=== PATIENT | male | born 1950 | race Caucasian/White ===

== ENCOUNTER 2019-03-05 17:31 | Inpatient (IN) | payer MEDICAID, OTHER ==
[2019-03-05 18:13] LABS: Basophils # (Auto) 0.1 K/mm3 (0.0-0.1); Basophils % (Auto) 0.7 % (0.0-1.8); Eosinophils # (Auto) 1.3 K/mm3 (0.0-0.4); Eosinophils % (Auto) 7.9 % (0.0-4.3); Hematocrit 38.3 % (35.5-45.6); Hemoglobin 12.9 gm/dl (11.8-15.2); Lymphocytes # (Auto) 2.1 K/mm3 (1.2-5.4); Lymphocytes % (Auto) 12.7 % (13.4-35.0); Mean Corpuscular HGB Conc 34 % (32-34); Mean Corpuscular Volume 90 fl (84-94); Monocytes % (Auto) 6.2 % (0.0-7.3); Platelet Count 427 K/mm3 (140-440); Red Blood Count 4.24 M/mm3 (3.65-5.03); Red Cell Distribution Width 14.3 % (13.2-15.2)
--- NOTE | 2019-03-05 18:17 | Emergency Department Report ---
ED General Adult HPI - General Chief complaint: Chest Pain Stated complaint: CHEST PAIN Time Seen by Provider: 03/05/19 18:13 Source: patient, EMS Mode of arrival: Stretcher Limitations: No Limitations - History of Present Illness Initial comments: Patient is 68-year-old male stated that the last time he saw a doctor was in 1986 when he was treated for tuberculosis. Patient presented to the emergency room via EMS complaining of bilateral chest pain, cough, nonproductive associated with shortness of breath. Patient describes his chest pain as sharp increase when he takes a deep breath. Patient denied any fever or chills. No nausea or vomiting. Severity scale (0 -10): 0 - Related Data Allergies Allergy/AdvReac Type Severity Reaction Status Date / Time No Known Allergies Allergy Unverified 03/05/19 17:45 ED Review of Systems ROS: Stated complaint: CHEST PAIN Other details as noted in HPI Comment: All other systems reviewed and negative Constitutional: denies: chills, fever Respiratory: cough, orthopnea, shortness of breath, SOB with exertion, SOB at rest. denies: wheezing Cardiovascular: chest pain, dyspnea on exertion, orthopnea. denies: palpitations Gastrointestinal: denies: abdominal pain, nausea, vomiting, diarrhea, constipation, hematemesis, melena, hematochezia Musculoskeletal: denies: back pain Neurological: denies: headache, weakness, numbness, paresthesias, confusion, abnormal gait ED Past Medical Hx - Past Medical History Previous Medical History?: Yes Additional medical history: TB in - Surgical History Past Surgical History?: No - Social History Smoking Status: Unknown if ever smoked ED Physical Exam - General Limitations: No Limitations General appearance: alert, in no apparent distress - Head Head exam: Present: atraumatic, normocephalic, normal inspection - Eye Eye exam: Present: normal appearance, PERRL - ENT ENT exam: Present: normal exam, normal orophraynx, mucous membranes moist - Neck Neck exam: Present: normal inspection, full ROM. Absent: tenderness, meningismus, lymphadenopathy, thyromegaly - Respiratory Respiratory exam: Present: rales, decreased breath sounds. Absent: respiratory distress, wheezes, rhonchi, stridor, accessory muscle use, prolonged expiratory - Cardiovascular Cardiovascular Exam: Present: regular rate, normal rhythm, normal heart sounds - GI/Abdominal GI/Abdominal exam: Present: soft, normal bowel sounds. Absent: distended, tenderness, guarding, rebound, rigid, organomegaly, mass, bruit, pulsatile mass, hernia - Extremities Exam Extremities exam: Present: normal inspection, full ROM, normal capillary refill. Absent: tenderness, pedal edema, joint swelling, calf tenderness - Back Exam Back exam: Present: normal inspection, full ROM. Absent: CVA tenderness (R), CVA tenderness (L), muscle spasm, paraspinal tenderness, vertebral tenderness, rash noted - Neurological Exam Neurological exam: Present: alert, oriented X3, CN II-XII intact, normal gait, reflexes normal - Skin Skin exam: Present: warm, intact, normal color ED Course Vital Signs 03/05/19 03/05/19 03/05/19 18:00 18:42 20:17 Pulse Rate 92 H 83 Respiratory 18 18 21 Rate Blood Pressure 117/83 115/90 [Left] O2 Sat by Pulse 97 97 97 Oximetry ED Medical Decision Making - Lab Data Result diagrams: 03/05/19 18:01 03/05/19 18:01 - EKG Data -: EKG Interpreted by In EKG shows normal: sinus rhythm Rate: normal - EKG Data Interpretation: no acute changes - Radiology Data Radiology results: report reviewed CTA chest showed a large mass occupying the right hemithorax highly suspicious for malignancy. - Medical Decision Making Patient is 68-year-old male stated that the last time he saw a doctor was in 1986 when he was treated for tuberculosis. Patient presented to the emergency room via EMS complaining of bilateral chest pain, cough, nonproductive associated with shortness of breath. Patient describes his chest pain as sharp increase when he takes a deep breath. Patient denied any fever or chills. No nausea or vomiting. Patient found to have a large mass occupying the right hemithorax, highly suspicious for malignancy. I discussed the patient is Dr. Hernandez, he agreed to admit the patient to medical service. Critical Care Time: Yes Critical care time in (mins) excluding proc time.: 30 Critical care attestation.: If time is entered above; I have spent that time in minutes in the direct care of this critically ill patient, excluding procedure time. ED Disposition Clinical Impression: Shortness of breath, Mass of right lung Disposition: OP ADMIT IP TO THIS HOSP Is pt being admited?: Yes Condition: Stable
[2019-03-05 18:24] LABS: INR 1.05 (0.87-1.13)
[2019-03-05 18:25] LABS: Partial Thromboplastin Time 29.9 Sec. (24.2-36.6)
[2019-03-05 18:44] LABS: BUN/Creatinine Ratio 17; Blood Urea Nitrogen 12 mg/dL (9-20); Calcium 9.1 mg/dL (8.4-10.2); Hemolysis Index 7
[2019-03-05 18:46] LABS: Alanine Aminotransferase 13 units/L (7-56); Albumin 3.4 g/dL (3.9-5)
[2019-03-05 18:53] LABS: Bilirubin,Direct < 0.2 mg/dL (0-0.2)
--- NOTE | 2019-03-05 18:53 | XRay Report ---
PROCEDURE: Chest. TECHNIQUE: Portable AP view. HISTORY: Chest pain. COMPARISONS: None. FINDINGS: The heart size is normal. There is calcification in the aortic arch. The left lung is clear and well expanded. There is some hazy opacity in the right hemithorax. There is pleural thickening versus pleu ral fluid at the right lung apex. The findings are nonspecific. This could represent a loculated pleu ral effusion. It could also represent chronic pleural disease. Acute pneumonia is possible but consid ered less likely. Further evaluation with a CT scan of the chest would be useful if clinically indica toni. The soft tissues and regional skeleton are unremarkable. IMPRESSION: Abnormal right hemithorax. This document is electronically signed by Diogo Manuel MD., March 05 2019 07:51:08 PM ET
[2019-03-05] MEDS ORDERED: ZOSYN/NS 3.375GM/50ML 3.375 GM/50 ML BAG IV ONE (20:00)
--- NOTE | 2019-03-05 21:52 | Cat Scan Report ---
PROCEDURE: CT ANGIO CHEST TECHNIQUE: Computerized tomographic angiography of the chest was performed after the IV injection of iodinated nonionic contrast including image processing. The image data was postprocessed using 2-di mensional multiplanar reformatted (MPR) and 3-dimensional (MIP and/or volume rendered) techniques. Au tomated exposure control, adjustment of mA and/or kV according to patient size, or iterative reconstr uction dose optimization techniques were utilized. CT DOSE LENGTH PRODUCT: mGycm HISTORY: CHEST PAIN WITH SOB COMPARISONS: None . FINDINGS: There is a large mass occupying the right hemithorax extending from the right pulmonary hilum to the right lung apex anteriorly. This measures 13 x 9 x 10 cm. The mass encases branches of the pulmonary veins, pulmonary artery and bronchi on the right. Malignancy is highly suspected. There are reticular densities in the remainder of the right lung which could be infiltrates or more likely lymphangitic spread of tumor. The left lung is clear and expanded. There is advanced underlying COPD. There is a small right pleural effusion. There is no pneumothorax. The heart size is normal. The ascending thoracic aorta is ectatic and measures up to 3.8 cm in diameter. There is no aortic dis section. There is no pulmonary embolism. The bony structures are intact. Images of the upper abdomen demonstra te no acute abnormality. IMPRESSION: There is no pulmonary embolism. There is a large mass occupying the right hemithorax extending from the right pulmonary hilum to the right lung apex anteriorly. This measures 13 x 9 x 10 cm. The mass encases branches of the pulmonary veins, pulmonary artery and bronchi on the right. Malignancy is highly suspected. There are reticular densities in the remainder of the right lung which could be infiltrates or more l ikely lymphangitic spread of tumor. The left lung is clear and expanded. There is advanced underlying COPD. There is a small right pleural effusion. There is no pneumothorax. This document is electronically signed by Mark Chavez MD., March 05 2019 10:50:10 PM ET
[2019-03-05] MEDS ORDERED: ZOFRAN IV PRN (22:11)
--- NOTE | 2019-03-05 22:23 | History and Physical Report ---
<RICARDO EASON - Last Filed: 03/06/19 00:51> History of Present Illness Date of examination: 03/05/19 Date of admission: 11/09/2018 Chief complaint: Cough, SOB x 1 month History of present illness: Pt is a 68-year-old male with PMHx of positive PPD skin test, treated with antituberculosis regimen for 6 months in 1986. Pt was brought by EMS for c/o chest pain and cough, He states that the cough is non productive, he has been coughing for nearly 2 months. Pt also reports sharp chest pain associated with the cough, he reports SOB, denies palpitation, denies nausea or vomiting. 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 Pt denies blood in the sputum, denies fever, denies chills, denies night sweats, he reports some weight loss for working in the sun and burning a lot of calories at work, he reports good appetite. Pt had a CT A chest that showed a large right lung mass, concerning for malignancy, pt is admitted for further evaluation and treatment. Past History Past Medical History: No medical history Past Surgical History: No surgical history Social history: no significant social history, smoking (>2ppd) Family history: no significant family history Medications and Allergies Allergies Allergy/AdvReac Type Severity Reaction Status Date / Time No Known Allergies Allergy Unverified 03/05/19 17:45 Home Medications Medication Instructions Recorded Confirmed Last Taken Type Ibuprofen [Motrin] 200 mg PO Q6H PRN 03/06/19 03/06/19 Unknown History Active Meds: Active Medications Acetaminophen (Tylenol) 650 mg PO Q4H PRN PRN Reason: Pain MILD(1-3)/Fever >100.5/BOO Albuterol/Ipratropium (Duoneb *Not For Prn Use*) 1 ampul IH Q6HRT [facility] Enoxaparin Sodium (Lovenox) 40 mg SUB-Q QDAY [facility] Famotidine (Pepcid) 20 mg IV BID [facility] Sodium Chloride (Nacl 0.9% 1000 Ml) 1,000 mls @ 42 mls/hr IV DIRECT [facility] Morphine Sulfate (Morphine) 2 mg IV Q4H PRN PRN Reason: Pain, Moderate (4-6) Ondansetron HCl (Zofran) 4 mg IV Q8H PRN PRN Reason: Nausea And Vomiting Sodium Chloride (Sodium Chloride Flush Syringe 10 Ml) 10 ml IV BID [facility] Sodium Chloride (Sodium Chloride Flush Syringe 10 Ml) 10 ml IV PRN PRN PRN Reason: LINE FLUSH Review of Systems Cardiovascular: chest pain Respiratory: cough, shortness of breath Exam - Constitutional Vitals: Temp Pulse Resp BP Pulse Ox 90 13 132/69 96 03/05/19 22:02 03/05/19 22:02 03/05/19 22:02 03/05/19 22:02 General appearance: Present: no acute distress - EENT Eyes: Present: PERRL, EOM intact ENT: hearing intact - Neck Neck: Present: normal ROM - Respiratory Respiratory effort: other (SOB) Respiratory: right: diminished - Cardiovascular Rhythm: regular Heart Sounds: Present: S1 & S2 - Extremities Extremities: no ischemia, No edema Peripheral Pulses: within normal limits - Abdominal General gastrointestinal: Present: soft, non-tender, non-distended Male genitourinary: Present: deferred - Rectal Rectal Exam: deferred - Integumentary Integumentary: Present: warm, dry - Musculoskeletal Musculoskeletal: strength equal bilaterally - Psychiatric Psychiatric: cooperative - Neurologic Neurologic: moves all extremities Results - Labs CBC & Chem 7: 03/05/19 18:01 03/05/19 18:01 Labs: Laboratory Last Values WBC 16.3 K/mm3 (4.5-11.0) H 03/05/19 18:01 RBC 4.24 M/mm3 (3.65-5.03) 03/05/19 18:01 Hgb 12.9 gm/dl (11.8-15.2) 03/05/19 18:01 Hct 38.3 % (35.5-45.6) 03/05/19 18:01 MCV 90 fl (84-94) 03/05/19 18:01 MCH 31 pg (28-32) 03/05/19 18:01 MCHC 34 % (32-34) 03/05/19 18:01 RDW 14.3 % (13.2-15.2) 03/05/19 18:01 Plt Count 427 K/mm3 (140-440) 03/05/19 18:01 Lymph % (Auto) 12.7 % (13.4-35.0) L 03/05/19 18:01 [place] % (Auto) 6.2 % (0.0-7.3) 03/05/19 18:01 Eos % (Auto) 7.9 % (0.0-4.3) H 03/05/19 18:01 Baso % (Auto) 0.7 % (0.0-1.8) 03/05/19 18:01 Lymph # 2.1 K/mm3 (1.2-5.4) 03/05/19 18:01 [place] # 1.0 K/mm3 (0.0-0.8) H 03/05/19 18:01 Eos # 1.3 K/mm3 (0.0-0.4) H 03/05/19 18:01 Baso # 0.1 K/mm3 (0.0-0.1) 03/05/19 18:01 Seg Neutrophils % 72.5 % (40.0-70.0) H 03/05/19 18:01 Seg Neutrophils # 11.9 K/mm3 (1.8-7.7) H 03/05/19 18:01 PT 14.3 Sec. (12.2-14.9) 03/05/19 18:01 INR 1.05 (0.87-1.13) 03/05/19 18:01 APTT 29.9 Sec. (24.2-36.6) 03/05/19 18:01 Sodium 138 mmol/L (137-145) 03/05/19 18:01 Potassium 4.2 mmol/L (3.6-5.0) 03/05/19 18:01 Chloride 99.0 mmol/L (98-107) 03/05/19 18:01 Carbon Dioxide 26 mmol/L (22-30) 03/05/19 18:01 17 mmol/L 03/05/19 18:01 BUN 12 mg/dL (9-20) 03/05/19 18:01 0.7 mg/dL (0.8-1.5) L 03/05/19 18:01 Estimated GFR > 60 ml/min 03/05/19 18:01 17 % 03/05/19 18:01 Glucose 97 mg/dL (75-100) 03/05/19 18:01 Calcium 9.1 mg/dL (8.4-10.2) 03/05/19 18:01 0.30 mg/dL (0.1-1.2) 03/05/19 18:19 < 0.2 mg/dL (0-0.2) 03/05/19 18:19 0.1 mg/dL 03/05/19 18:19 AST 14 units/L (5-40) 03/05/19 18:19 ALT 13 units/L (7-56) 03/05/19 18:19 117 units/L (35-129) 03/05/19 18:19 < 0.010 ng/mL (0.00-0.029) 03/05/19 19:47 NT-Pro-B Natriuret Pep 113.5 pg/mL (0-900) 03/05/19 18:19 7.1 g/dL (6.3-8.2) 03/05/19 18:19 3.4 g/dL (3.9-5) L 03/05/19 18:19 0.9 % 03/05/19 18:19 16 units/L (13-60) 03/05/19 18:19 Assessment and Plan Assessment and plan: 1. Atypical Chest pain (likely pleuritic) 2. Large right hemithorax mass 3. Acute Dyspnea (due to lung mass) 4. Frequent cough (likely due to lung mass) 5. Pulmonary infiltrate/(Acute pneumonia) 5. Advanced COPD (per CT) 6. Right small pleural effusion 7. Leukocytosis 8. H/o positive PPD 1986 (treated with antiTB regimen) 9. Tobacco abused disorder Plan: Pt is admitted for CP, SOB, Rt lung mass Continue to monitor breathing status O2 at 2L, to keep sat>93% Initiate CAP protocol with Zosyn and Levaquin Nebs PRN for acute dyspnea Pulmocort daily Tessalon perles Q8hrs for cough Consult pulmonary for lung mass Consults hematology for possible malignancy Smoking cessation counselled DVT prophylaxis with lovenox Advance Directives: Yes VTE prophylaxis?: Chemical Plan of care discussed with patient/family: Yes <BREEZY ENAMORADO - Last Filed: 03/06/19 06:21> History of Present Illness Date of admission: 03/05/19 22:11 Medications and Allergies Active Meds: Active Medications Acetaminophen (Tylenol) 650 mg PO Q4H PRN PRN Reason: Pain MILD(1-3)/Fever >100.5/BOO Albuterol/Ipratropium (Duoneb *Not For Prn Use*) 1 ampul IH Q6HRT [facility] Last Admin: 03/06/19 01:04 Dose: Not Given Documented by: Benzonatate (Tessalon Perles) 200 mg PO Q8HR [facility] Budesonide (Pulmicort) 0.5 mg IH Q12HRT [facility] Enoxaparin Sodium (Lovenox) 40 mg SUB-Q QDAY [facility] Famotidine (Pepcid) 20 mg IV BID [facility] Sodium Chloride (Nacl 0.9% 1000 Ml) 1,000 mls @ 42 mls/hr IV DIRECT [facility] Last Admin: 03/06/19 03:03 Dose: 42 mls/hr Documented by: Ceftriaxone Sodium (Rocephin/Ns 2 Gm/100 Ml) 2 gm in 100 mls @ 200 mls/hr IV Q24HR [facility]; Protocol Azithromycin 500 mg/ Sodium (Chloride) 250 mls @ 250 mls/hr IV Q24H [facility]; Protocol Morphine Sulfate (Morphine) 2 mg IV Q4H PRN PRN Reason: Pain, Moderate (4-6) Ondansetron HCl (Zofran) 4 mg IV Q8H PRN PRN Reason: Nausea And Vomiting Pneumococcal Polyvalent Vaccine (Pneumovax 23) 0.5 ml IM .ONCE ONE Stop: 03/06/19 12:01 Sodium Chloride (Sodium Chloride Flush Syringe 10 Ml) 10 ml IV BID [facility] Sodium Chloride (Sodium Chloride Flush Syringe 10 Ml) 10 ml IV PRN PRN PRN Reason: LINE FLUSH Exam - Constitutional Vitals: Temp Pulse Resp BP Pulse Ox 98.0 F 79 18 154/85 98 03/06/19 04:34 03/06/19 04:34 03/06/19 04:34 03/06/19 04:34 03/06/19 04:34 Results - Labs CBC & Chem 7: 03/06/19 04:32 03/06/19 04:32 Labs: Laboratory Last Values WBC 14.4 K/mm3 (4.5-11.0) H 03/06/19 04:32 RBC 4.22 M/mm3 (3.65-5.03) 03/06/19 04:32 Hgb 13.1 gm/dl (11.8-15.2) 03/06/19 04:32 Hct 38.0 % (35.5-45.6) 03/06/19 04:32 MCV 90 fl (84-94) 03/06/19 04:32 MCH 31 pg (28-32) 03/06/19 04:32 MCHC 35 % (32-34) H 03/06/19 04:32 RDW 14.3 % (13.2-15.2) 03/06/19 04:32 Plt Count 407 K/mm3 (140-440) 03/06/19 04:32 Lymph % (Auto) 15.9 % (13.4-35.0) 03/06/19 04:32 [place] % (Auto) 7.4 % (0.0-7.3) H 03/06/19 04:32 Eos % (Auto) 11.8 % (0.0-4.3) H 03/06/19 04:32 Baso % (Auto) 0.7 % (0.0-1.8) 03/06/19 04:32 Lymph # 2.3 K/mm3 (1.2-5.4) 03/06/19 04:32 [place] # 1.1 K/mm3 (0.0-0.8) H 03/06/19 04:32 Eos # 1.7 K/mm3 (0.0-0.4) H 03/06/19 04:32 Baso # 0.1 K/mm3 (0.0-0.1) 03/06/19 04:32 Seg Neutrophils % 64.2 % (40.0-70.0) 03/06/19 04:32 Seg Neutrophils # 9.2 K/mm3 (1.8-7.7) H 03/06/19 04:32 PT 14.3 Sec. (12.2-14.9) 03/05/19 18:01 INR 1.05 (0.87-1.13) 03/05/19 18:01 APTT 29.9 Sec. (24.2-36.6) 03/05/19 18:01 Sodium 139 mmol/L (137-145) 03/06/19 04:32 Potassium 4.5 mmol/L (3.6-5.0) 03/06/19 04:32 Chloride 103.0 mmol/L (98-107) 03/06/19 04:32 Carbon Dioxide 24 mmol/L (22-30) 03/06/19 04:32 17 mmol/L 03/06/19 04:32 BUN 10 mg/dL (9-20) 03/06/19 04:32 0.5 mg/dL (0.8-1.5) L 03/06/19 04:32 Estimated GFR > 60 ml/min 03/06/19 04:32 20 % 03/06/19 04:32 Glucose 121 mg/dL (75-100) H 03/06/19 04:32 Calcium 9.3 mg/dL (8.4-10.2) 03/06/19 04:32 0.30 mg/dL (0.1-1.2) 03/05/19 18:19 < 0.2 mg/dL (0-0.2) 03/05/19 18:19 0.1 mg/dL 03/05/19 18:19 AST 14 units/L (5-40) 03/05/19 18:19 ALT 13 units/L (7-56) 03/05/19 18:19 117 units/L (35-129) 03/05/19 18:19 < 0.010 ng/mL (0.00-0.029) 03/05/19 23:28 NT-Pro-B Natriuret Pep 113.5 pg/mL (0-900) 03/05/19 18:19 7.1 g/dL (6.3-8.2) 03/05/19 18:19 3.4 g/dL (3.9-5) L 03/05/19 18:19 0.9 % 03/05/19 18:19 16 units/L (13-60) 03/05/19 18:19 Assessment and Plan Assessment and plan: Patient is a 68 year old male presenting to the ED with complaints of chest pain and cough for the past 2 months. Pain is a 5/10 in intensity with no radiation,. Patient for the past two months has been using Motrin for pain relief. Although doccumented that he takes 20-25 pills/day the patient states that he only takes it as directed and not that much. In the ED he is noted to have a large right hemithorax mass. He endorse night sweat but no hemoptysis or weightloss. He has not followed with a physician since 1986 Cachectic appearing In addition to the plan above. Consult ID and Pulmonary team. Counselling on NSAID use provided Stress test prior to discharge once TB ruled out or out patient Patient has been strongly advised to have age appropriate screening
[2019-03-06] MEDS: DUONEB *Not for PRN Use IH SCH ×4 (01:04→19:18)
[2019-03-06] MEDS: NACL 0.9% 1000 ML 1,000 ML IV SCH (03:03)
[2019-03-06 05:18] LABS: Basophils # (Auto) 0.1 K/mm3 (0.0-0.1); Basophils % (Auto) 0.7 % (0.0-1.8); Eosinophils # (Auto) 1.7 K/mm3 (0.0-0.4); Eosinophils % (Auto) 11.8 % (0.0-4.3); Hemoglobin 13.1 gm/dl (11.8-15.2); Lymphocytes # (Auto) 2.3 K/mm3 (1.2-5.4); Lymphocytes % (Auto) 15.9 % (13.4-35.0); Mean Corpuscular HGB Conc 35 % (32-34); Mean Corpuscular Volume 90 fl (84-94); Monocytes # (Auto) 1.1 K/mm3 (0.0-0.8); Monocytes % (Auto) 7.4 % (0.0-7.3); Platelet Count 407 K/mm3 (140-440); Red Blood Count 4.22 M/mm3 (3.65-5.03); Red Cell Distribution Width 14.3 % (13.2-15.2)
[2019-03-06 05:44] LABS: BUN/Creatinine Ratio 20; Blood Urea Nitrogen 10 mg/dL (9-20); Calcium 9.3 mg/dL (8.4-10.2); Hemolysis Index 2
[2019-03-06] MEDS ORDERED: ZOSYN/NS 4.5GM/100ML 4.5 GM/100 ML VIAL IV SCH (06:00)
[2019-03-06] MEDS: TESSALON PERLES PO SCH ×3 (06:47→22:46)
[2019-03-06] MEDS: MORPHINE IV PRN ×3 (06:50→20:06)
[2019-03-06] MEDS ORDERED: ZITHROMAX 500 MG in NACL 0.9% 250ML 250 ML IV SCH (08:00)
[2019-03-06] MEDS: PULMICORT IH SCH ×2 (09:29→19:18)
[2019-03-06] MEDS ORDERED: LEVAQUIN 750MG/150ML 750 MG/150 ML BAG IV SCH (10:00)
[2019-03-06] MEDS: LOVENOX SUB-Q SCH (10:09)
[2019-03-06] MEDS: PEPCID IV SCH ×2 (10:09→22:47)
[2019-03-06] MEDS: TYLENOL PO PRN ×2 (10:09→22:45)
[2019-03-06] MEDS: SODIUM CHLORIDE FLUSH SYRINGE 10 ML IV SCH ×2 (10:09→22:48)
[2019-03-06] MEDS: ROCEPHIN/NS 2 GM/100 ML 2 GM/100 ML BAG IV SCH (10:10)
[2019-03-06] MEDS ORDERED: PNEUMOVAX 23 IM ONE (12:00)
--- NOTE | 2019-03-06 12:22 | Progress Note ---
Assessment and Plan Assessment and plan: --Acute hypoxic respiratory failure; secondary to Large right hemithorax mass, continue supportive care Pulmonary consultation --Atypical Chest pain (likely pleuritic) --Large right hilar mass : Possible malignancy , and reactivation tuberculosis Airborne isolation, TB.HIV workup in progress, ID consulted -- Pulmonary infiltrate/(Acute pneumonia); empiric antibiotics Follow cultures, TB workup --Advanced COPD (per CT); oxygen titrate O2 sats to more than 90%, nebulizers IV steroids if needed, IV antibiotics, pulmonary following --H/o latent TB[ positive PPD 1986 ,treated with antiTB regimen] --Ongoing Tobacco use; smoking cessation counseling and nicotine patch as needed --DVT prophylaxis; Lovenox Monitor closely and adjust management as needed Follow ID and pulmonary recommendations Plan of care is reviewed with the patient and his nurse History Interval history: Patient seen and examined medical records reviewed Admitted with shortness of breath and chronic cough On airborne isolation to rule out pulmonary tuberculosis ID pulmonary following Patient feels better no new complaints Vital signs noted Hospitalist Physical - Constitutional Vitals: Temp Pulse Resp BP Pulse Ox 98.3 F 92 H 20 126/82 98 03/06/19 08:23 03/06/19 09:54 03/06/19 09:54 03/06/19 08:23 03/06/19 09:36 General appearance: Present: no acute distress, cachectic, disheveled - EENT Eyes: Present: PERRL, EOM intact - Neck Neck: Present: supple, normal ROM - Respiratory Respiratory effort: labored Respiratory: bilateral: diminished (right more than left), rhonchi, negative: rales, wheezing - Cardiovascular Rhythm: regular Heart Sounds: Present: S1 & S2 - Extremities Extremities: no ischemia, No edema - Abdominal General gastrointestinal: soft, non-tender, non-distended, normal bowel sounds - Integumentary Integumentary: Present: clear, warm - Psychiatric Psychiatric: appropriate mood/affect, cooperative - Neurologic Neurologic: CNII-XII intact, moves all extremities Results - Labs CBC & Chem 7: 03/06/19 04:32 03/06/19 04:32 Labs: Laboratory Last Values WBC 14.4 K/mm3 (4.5-11.0) H 03/06/19 04:32 RBC 4.22 M/mm3 (3.65-5.03) 03/06/19 04:32 Hgb 13.1 gm/dl (11.8-15.2) 03/06/19 04:32 Hct 38.0 % (35.5-45.6) 03/06/19 04:32 MCV 90 fl (84-94) 03/06/19 04:32 MCH 31 pg (28-32) 03/06/19 04:32 MCHC 35 % (32-34) H 03/06/19 04:32 RDW 14.3 % (13.2-15.2) 03/06/19 04:32 Plt Count 407 K/mm3 (140-440) 03/06/19 04:32 Lymph % (Auto) 15.9 % (13.4-35.0) 03/06/19 04:32 [place] % (Auto) 7.4 % (0.0-7.3) H 03/06/19 04:32 Eos % (Auto) 11.8 % (0.0-4.3) H 03/06/19 04:32 Baso % (Auto) 0.7 % (0.0-1.8) 03/06/19 04:32 Lymph # 2.3 K/mm3 (1.2-5.4) 03/06/19 04:32 [place] # 1.1 K/mm3 (0.0-0.8) H 03/06/19 04:32 Eos # 1.7 K/mm3 (0.0-0.4) H 03/06/19 04:32 Baso # 0.1 K/mm3 (0.0-0.1) 03/06/19 04:32 Seg Neutrophils % 64.2 % (40.0-70.0) 03/06/19 04:32 Seg Neutrophils # 9.2 K/mm3 (1.8-7.7) H 03/06/19 04:32 PT 14.3 Sec. (12.2-14.9) 03/05/19 18:01 INR 1.05 (0.87-1.13) 03/05/19 18:01 APTT 29.9 Sec. (24.2-36.6) 03/05/19 18:01 Sodium 139 mmol/L (137-145) 03/06/19 04:32 Potassium 4.5 mmol/L (3.6-5.0) 03/06/19 04:32 Chloride 103.0 mmol/L (98-107) 03/06/19 04:32 Carbon Dioxide 24 mmol/L (22-30) 03/06/19 04:32 17 mmol/L 03/06/19 04:32 BUN 10 mg/dL (9-20) 03/06/19 04:32 0.5 mg/dL (0.8-1.5) L 03/06/19 04:32 Estimated GFR > 60 ml/min 03/06/19 04:32 20 % 03/06/19 04:32 Glucose 121 mg/dL (75-100) H 03/06/19 04:32 Calcium 9.3 mg/dL (8.4-10.2) 03/06/19 04:32 0.30 mg/dL (0.1-1.2) 03/05/19 18:19 < 0.2 mg/dL (0-0.2) 03/05/19 18:19 0.1 mg/dL 03/05/19 18:19 AST 14 units/L (5-40) 03/05/19 18:19 ALT 13 units/L (7-56) 03/05/19 18:19 117 units/L (35-129) 03/05/19 18:19 < 0.010 ng/mL (0.00-0.029) 03/05/19 23:28 NT-Pro-B Natriuret Pep 113.5 pg/mL (0-900) 03/05/19 18:19 7.1 g/dL (6.3-8.2) 03/05/19 18:19 3.4 g/dL (3.9-5) L 03/05/19 18:19 0.9 % 03/05/19 18:19 16 units/L (13-60) 03/05/19 18:19 Active Medications - Current Medications Current Medications: Generic Name Dose Route Start Last Admin Trade Name Freq PRN Reason Stop Dose Admin Acetaminophen 650 mg 03/05/19 22:11 03/06/19 10:09 Tylenol PO 650 mg Q4H PRN Administration Pain MILD(1-3)/Fever >100.5/BOO Albuterol/Ipratropium 1 ampul 03/06/19 02:00 03/06/19 09:29 Duoneb *Not For Prn Use* IH 1 ampul Q6HRT [facility] Administration Benzonatate 200 mg 03/06/19 06:00 03/06/19 06:47 Tessalon Perles PO 200 mg Q8HR [facility] Administration Budesonide 0.5 mg 03/06/19 08:00 03/06/19 09:29 Pulmicort IH 0.5 mg Q12HRT [facility] Administration Enoxaparin Sodium 40 mg 03/06/19 10:00 03/06/19 10:09 Lovenox SUB-Q 40 mg QDAY [facility] Administration Famotidine 20 mg 03/06/19 10:00 03/06/19 10:09 Pepcid IV 20 mg BID [facility] Administration Sodium Chloride 1,000 mls @ 42 mls/hr 03/05/19 23:00 03/06/19 03:03 Nacl 0.9% 1000 Ml IV 42 mls/hr DIRECT [facility] Administration Ceftriaxone Sodium 2 gm in 100 mls @ 200 mls/hr 03/06/19 10:00 03/06/19 10:10 Rocephin/Ns 2 Gm/100 Ml IV 200 mls/hr Q24HR [facility] Administration Protocol Azithromycin 500 mg/ Sodium 250 mls @ 250 mls/hr 03/06/19 08:00 03/06/19 10:15 Chloride IV 250 mls/hr Q24H [facility] Administration Protocol Morphine Sulfate 2 mg 03/05/19 22:11 03/06/19 11:31 Morphine IV 2 mg Q4H PRN Administration Pain, Moderate (4-6) Ondansetron HCl 4 mg 03/05/19 22:11 Zofran IV Q8H PRN Nausea And Vomiting Sodium Chloride 10 ml 03/06/19 10:00 03/06/19 10:09 Sodium Chloride Flush Syringe 10 Ml IV 10 ml BID [facility] Administration Sodium Chloride 10 ml 03/05/19 22:11 Sodium Chloride Flush Syringe 10 Ml IV PRN PRN LINE FLUSH
--- NOTE | 2019-03-06 13:06 | Consultation ---
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 Admitted to the hospital yesterday with complaints of worsening cough going on for the last 2 months. This is associated with chest pressure and pain on the right side. Also reports producing clear phlegm, denies hemoptysis. Active smoker, states that he has now quit. Denies any fevers but some occasional sweats. Also reports weight loss. CXR and CT scan concerning for a right hilar mass. Infectious disease was consu lted to help evaluate for the possibility of tuberculosis. Review of Systems: General: no fevers,chills or rigors HEENT: no new visual disturbance Respiratory: No cough, sputum, hemoptysis or shortness of breath Cardiovascular: No chest pain, syncope Gastrointestinal: No nausea, vomiting or diarrhea Genitourinary: No dysuria or hematuria Musculoskeletal: No new or worsening neck pain or back pain Neurologic: No headaches, seizures Hematologic: No easy bruising or bleeding Endocrine: occasional sweats with minimal weight loss Skin: negative for rash, jaundice Psychiatric: No suicidal or homicidal ideation Past History Past Medical History: No medical history Past Surgical History: No surgical history Social history: no significant social history, smoking (>2ppd) Family history: hypertension Medications and Allergies Allergies Allergy/AdvReac Type Severity Reaction Status Date / Time No Known Allergies Allergy Unverified 03/05/19 17:45 Home Medications Medication Instructions Recorded Confirmed Last Taken Type Ibuprofen [Motrin] 200 mg PO Q6H PRN 03/06/19 03/06/19 Unknown History Active Meds: Active Medications Acetaminophen (Tylenol) 650 mg PO Q4H PRN PRN Reason: Pain MILD(1-3)/Fever >100.5/BOO Last Admin: 03/06/19 10:09 Dose: 650 mg Documented by: Albuterol/Ipratropium (Duoneb *Not For Prn Use*) 1 ampul IH Q6HRT [facility] Last Admin: 03/06/19 09:29 Dose: 1 ampul Documented by: Benzonatate (Tessalon Perles) 200 mg PO Q8HR [facility] Last Admin: 03/06/19 06:47 Dose: 200 mg Documented by: Budesonide (Pulmicort) 0.5 mg IH Q12HRT [facility] Last Admin: 03/06/19 09:29 Dose: 0.5 mg Documented by: Enoxaparin Sodium (Lovenox) 40 mg SUB-Q QDAY [facility] Last Admin: 03/06/19 10:09 Dose: 40 mg Documented by: Famotidine (Pepcid) 20 mg IV BID [facility] Last Admin: 03/06/19 10:09 Dose: 20 mg Documented by: Sodium Chloride (Nacl 0.9% 1000 Ml) 1,000 mls @ 42 mls/hr IV DIRECT [facility] Last Admin: 03/06/19 03:03 Dose: 42 mls/hr Documented by: Ceftriaxone Sodium (Rocephin/Ns 2 Gm/100 Ml) 2 gm in 100 mls @ 200 mls/hr IV Q 24HR [facility]; Protocol Last Admin: 03/06/19 10:10 Dose: 200 mls/hr Documented by: Azithromycin 500 mg/ Sodium (Chloride) 250 mls @ 250 mls/hr IV Q24H [facility]; Protocol Last Admin: 03/06/19 10:15 Dose: 250 mls/hr Documented by: Morphine Sulfate (Morphine) 2 mg IV Q4H PRN PRN Reason: Pain, Moderate (4-6) Last Admin: 03/06/19 11:31 Dose: 2 mg Documented by: Ondansetron HCl (Zofran) 4 mg IV Q8H PRN PRN Reason: Nausea And Vomiting Sodium Chloride (Sodium Chloride Flush Syringe 10 Ml) 10 ml IV BID [facility] Last Admin: 03/06/19 10:09 Dose: 10 ml Documented by: Sodium Chloride (Sodium Chloride Flush Syringe 10 Ml) 10 ml IV PRN PRN PRN Reason: LINE FLUSH Physical Examination - Physical Exam Narrative exam: Physical Exam: Constitutional: Alert, cooperative. No acute distress Head, Ears, Nose: Normocephalic, atraumatic. External ears, nose normal Eyes: Conjunctivae/corneas clear. No icterus. No ptosis. Neck: Supple, no meningeal signs Oral: no thrush, no ulcers Cardiovascular: S1, S2 normal. Respiratory: clear to auscultation bilaterally, no wheeze GI: Soft, non-tender; bowel sounds normal. No peritoneal signs Musculoskeletal: No pedal edema, no cyanosis. Skin: No rash or abscess. Multiple tattoos Hem/Lymphatic: No palpable cervical or supraclavicular nodes. No lymphangitis Psych: Mood ok. Affect normal Neurological: Awake, alert, oriented. No gross abnormality - Constitutional Vitals: Vital Signs Temp Pulse Resp BP Pulse Ox 98.3 F 92 H 20 126/82 98 03/06/19 08:23 03/06/19 09:54 03/06/19 09:54 03/06/19 08:23 03/06/19 09:36 Temperature -Last 24 Hours Temperature 98.3 F Temperature 98.0 F Temperature 97.8 F Results - Labs CBC & Chem 7: 03/06/19 04:32 03/06/19 04:32 Labs: Abnormal lab results 03/05/19 03/05/19 03/05/19 Range/Units 18:01 18:01 18:19 WBC 16.3 H (4.5-11.0) K/mm3 MCHC (32-34) % Lymph % (Auto) 12.7 L (13.4-35.0) % [place] % (Auto) (0.0-7.3) % Eos % (Auto) 7.9 H (0.0-4.3) % [place] # 1.0 H (0.0-0.8) K/mm3 Eos # 1.3 H (0.0-0.4) K/mm3 Seg Neutrophils % 72.5 H (40.0-70.0) % Seg Neutrophils # 11.9 H (1.8-7.7) K/mm3 Creatinine 0.7 L (0.8-1.5) mg/dL Glucose (75-100) mg/dL Albumin 3.4 L (3.9-5) g/dL 03/06/19 03/06/19 Range/Units 04:32 04:32 WBC 14.4 H (4.5-11.0) K/mm3 MCHC 35 H (32-34) % Lymph % (Auto) (13.4-35.0) % [place] % (Auto) 7.4 H (0.0-7.3) % Eos % (Auto) 11.8 H (0.0-4.3) % [place] # 1.1 H (0.0-0.8) K/mm3 Eos # 1.7 H (0.0-0.4) K/mm3 Seg Neutrophils % (40.0-70.0) % Seg Neutrophils # 9.2 H (1.8-7.7) K/mm3 Creatinine 0.5 L (0.8-1.5) mg/dL Glucose 121 H (75-100) mg/dL Albumin (3.9-5) g/dL - Imaging and Cardiology Chest x-ray: report reviewed, image reviewed (R hilar mass) CT scan - chest: report reviewed, image reviewed (large right hilar mass. 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 At risk for both. Continue airborne precautions. AFB smears x 3. Agree with pulmonary consult, will likely need bronch + biopsy. No fever. Switch to Ceftriaxone + Flagyl for possible post obstructive component. Recs: d/leyda Azithromycin continue Ceftriaxone, added Flagyl HIV screen ordered, patient agreeable Continue airborne precautions. AFB smears x 3. Agree with pulmonary consult, will likely need bronch + biopsy D/W Dr. Smiley. MD [facility] C: [phone] O: [phone] F: [phone]
[2019-03-06] MEDS: FLAGYL 500 MG/100 ML 500 MG/100 ML BAG IV SCH ×2 (14:48→21:55)
--- NOTE | 2019-03-06 22:55 | Consultation ---
History of Present Illness Consult date: 03/06/19 Reason for consult: cough, chest pain, COPD History of present illness: PULMONARY AND CRITICAL CARE CONSULTATION. DR. SMILEY THANK YOU FOR ASKING ME TO PARTICIPATE IN THE CARE OF THIS PATIENT. Pt is a 68-year-old male with PMHx of positive PPD skin test, treated with antituberculosis regimen for 6 months in 1986. Pt was brought by EMS for c/o chest pain and cough, He states that the cough is non productive, he has been coughing for nearly 2 months. Pt also reports sharp chest pain associated with the cough, he reports SOB, denies palpitation, denies nausea or vomiting. 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 Pt denies blood in the sputum, denies fever, denies chills, denies night sweats, he reports some weight loss f or working in the sun and burning a lot of calories at work, he reports good appetite. Pt had a CT A chest that showed a large right lung mass, concerning for malignancy. PATIENT HAS HISTORY OF SMOKING 1 PACK X 52 YEARS. COUNSELLED TO STOP SMOKING. Denies alcohol and drug abuse.Works in [employer]. Patient originally from [place]. Patient has children in [place]. Not no children here. No known drug allergies. Patient is on 2 litres O2. O2 saturation 98%. Patient with history of TB, Appears partially treated , First rule out TB. If TB is negative, the right upper lobe lesion, easily amenable to the percutaneous needle biopsy under CT guidance. Past History Past Medical History: No medical history Past Surgical History: No surgical history Social history: no significant social history, smoking (>2ppd) Family history: hypertension Medications and Allergies Allergies Allergy/AdvReac Type Severity Reaction Status Date / Time No Known Allergies Allergy Unverified 03/05/19 17:45 Home Medications Medication Instructions Recorded Confirmed Last Taken Type Ibuprofen [Motrin] 200 mg PO Q6H PRN 03/06/19 03/06/19 Unknown History Active Meds: Active Medications Acetaminophen (Tylenol) 650 mg PO Q4H PRN PRN Reason: Pain MILD(1-3)/Fever >100.5/BOO Last Admin: 03/06/19 22:45 Dose: 650 mg Documented by: Albuterol/Ipratropium (Duoneb *Not For Prn Use*) 1 ampul IH Q6HRT [facility] Last Admin: 03/06/19 19:18 Dose: 1 ampul Documented by: Benzonatate (Tessalon Perles) 200 mg PO Q8HR [facility] Last Admin: 03/06/19 22:46 Dose: 200 mg Documented by: Budesonide (Pulmicort) 0.5 mg IH Q12HRT [facility] Last Admin: 03/06/19 19:18 Dose: 0.5 mg Documented by: Enoxaparin Sodium (Lovenox) 40 mg SUB-Q QDAY [facility] Last Admin: 03/06/19 10:09 Dose: 40 mg Documented by: Famotidine (Pepcid) 20 mg IV BID [facility] Last Admin: 03/06/19 22:47 Dose: 20 mg Documented by: Sodium Chloride (Nacl 0.9% 1000 Ml) 1,000 mls @ 42 mls/hr IV DIRECT [facility] Last Admin: 03/06/19 03:03 Dose: 42 mls/hr Documented by: Ceftriaxone Sodium (Rocephin/Ns 2 Gm/100 Ml) 2 gm in 100 mls @ 200 mls/hr IV Q24HR [facility]; Protocol Last Admin: 03/06/19 10:10 Dose: 200 mls/hr Documented by: Metronidazole (Flagyl 500 Mg/100 Ml) 500 mg in 100 mls @ 100 mls/hr IV Q8HR [facility]; Protocol Last Admin: 03/06/19 21:55 Dose: 100 mls/hr Documented by: Morphine Sulfate (Morphine) 2 mg IV Q4H PRN PRN Reason: Pain, Moderate (4-6) Last Admin: 03/06/19 20:06 Dose: 2 mg Documented by: Ondansetron HCl (Zofran) 4 mg IV Q8H PRN PRN Reason: Nausea And Vomiting Sodium Chloride (Sodium Chloride Flush Syringe 10 Ml) 10 ml IV BID [facility] Last Admin: 03/06/19 22:48 Dose: 10 ml Documented by: Sodium Chloride (Sodium Chloride Flush Syringe 10 Ml) 10 ml IV PRN PRN PRN Reason: LINE FLUSH Review of Systems All systems: negative Physical Examination Vital signs: Vital Signs Pulse Resp BP Pulse Ox 92 H 18 117/83 97 03/05/19 18:00 03/05/19 18:00 03/05/19 18:00 03/05/19 18:00 General appearance: no acute distress, alert ENT: oropharynx moist Neck: supple, no JVD Ascultation: Bilateral: diminished breath sounds, other (Prolonged expiratory phase.) Cardiovascular: regular rate and rhythm Gastrointestinal: normoactive bowel sounds, absent bowel sounds, soft, non- tender Integumentary: normal Extremities: no cyanosis, no edema Musculoskeletal: no deformities Gait: normal gait normal mental status, non-focal exam, pupils equal and round, CN II-XII normal mood appropriate Results - Laboratory Findings CBC and BMP: 03/06/19 04:32 03/06/19 04:32 PT/INR, D-dimer PT 14.3 Sec. (12.2-14.9) 03/05/19 18:01 INR 1.05 (0.87-1.13) 03/05/19 18:01 Abnormal lab findings: Abnormal Labs 03/05/19 03/05/19 03/05/19 18:01 18:01 18:19 WBC 16.3 H MCHC Lymph % (Auto) 12.7 L [place] % (Auto) Eos % (Auto) 7.9 H [place] # 1.0 H Eos # 1.3 H Seg Neutrophils % 72.5 H Seg Neutrophils # 11.9 H Creatinine 0.7 L Glucose Albumin 3.4 L 03/06/19 03/06/19 04:32 04:32 WBC 14.4 H MCHC 35 H Lymph % (Auto) [place] % (Auto) 7.4 H Eos % (Auto) 11.8 H [place] # 1.1 H Eos # 1.7 H Seg Neutrophils % Seg Neutrophils # 9.2 H Creatinine 0.5 L Glucose 121 H Albumin - Diagnostic Findings Chest x-ray: report reviewed (Reported abnormal right hemithorax.), image reviewed CT scan - chest: report reviewed, image reviewed Additional studies: Angio CT of chest done 03/05/19 IMPRESSION: There is no pulmonary embolism. There is a large mass occupying the right hemithorax extending from the right pulmonary hilum to the right lung apex anteriorly. This measures 13 x 9 x 10 cm. The mass encases branches of the pulmonary veins, pulmonary artery and bronchi on the right. Malignancy is highly suspected. There are reticular densities in the remainder of the right lung which could be infiltrates or more likely lymphangitic spread of tumor. The left lung is clear and expanded. There is advanced underlying COPD. There is a small right pleural effusion. There is no pneumothorax. Assessment and Plan Pt is a 68-year-old male with PMHx of positive PPD skin test, treated with antituberculosis regimen for 6 months in 1986. Pt was brought by EMS for c/o chest pain and cough, He states that the cough is non productive, he has been coughing for nearly 2 months. Pt also reports sharp chest pain associated with the cough, he reports SOB, denies palpitation, denies nausea or vomiting. 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 Pt denies blood in the sputum, denies fever, denies chills, denies night sweats, he reports some weight loss for working in the sun and burning a lot of calories at work, he reports good appetite. Pt had a CT A chest that showed a large right lung mass, concerning for malignancy. PATIENT HAS HISTORY OF SMOKING 1 PACK X 52 YEARS. COUNSELLED TO STOP SMOKING. Denies alcohol and drug abuse.Works in [employer]. Patient originally from [place]. Patient has children in [place]. Not no children here. No known drug allergies. Patient is on 2 litres O2. O2 saturation 98%. Patient with history of TB, Appears partially treated , First rule out TB. If TB is negative, the right upper lobe lesion, easily amenable to the percutaneous needle biopsy under CT guidance. - Patient Problems (1) Shortness of breath Current Visit: Yes Status: Acute Plan to address problem: O2 3 litres via nasal canula. Albuterol/atrovent aerosol treatments q 6 hours. Continue ceftrioxone and metronidazole. Continue S/C Lovenox. Continue famotidine. (2) Mass of right lung Current Visit: Yes Status: Acute Plan to address problem: Once TB rule Out, Right upper lobe mass easily amenable to percutaneous needle biopsy under CT guidance.
[2019-03-07] MEDS: DUONEB *Not for PRN Use IH SCH ×4 (02:43→19:24)
[2019-03-07] MEDS: FLAGYL 500 MG/100 ML 500 MG/100 ML BAG IV SCH ×3 (05:25→22:43)
[2019-03-07] MEDS: TESSALON PERLES PO SCH ×3 (05:53→22:43)
[2019-03-07] MEDS: TYLENOL PO PRN (05:53)
[2019-03-07] MEDS: PULMICORT IH SCH ×2 (09:37→19:24)
[2019-03-07] MEDS: ROCEPHIN/NS 2 GM/100 ML 2 GM/100 ML BAG IV SCH (09:50)
[2019-03-07] MEDS: LOVENOX SUB-Q SCH (09:50)
[2019-03-07] MEDS: SODIUM CHLORIDE FLUSH SYRINGE 10 ML IV SCH ×2 (09:50→22:44)
[2019-03-07] MEDS: PEPCID IV SCH (09:53)
--- NOTE | 2019-03-07 14:13 | Progress Note ---
Assessment and Plan Patient awake complaining chest pain. Patient is on room air. O2 Saturation 99%. No acute respiratory distress. Sputum for AFB still pending. - Patient Problems (1) Shortness of breath Current Visit: Yes Status: Acute Plan to address problem: O2 3 litres via nasal canula. Albuterol/atrovent aerosol treatments q 6 hours. Continue ceftrioxone and metronidazole. Continue S/C Lovenox. Continue famotidine. (2) Mass of right lung Current Visit: Yes Status: Acute Plan to address problem: Once TB rule Out, Right upper lobe mass easily amenable to percutaneous needle biopsy under CT guidance. Subjective Date of service: 03/07/19 Interval history: Patient awake complaining chest pain. Patient is on room air. O2 Saturation 99%. No acute respiratory distress. Sputum for AFB still pending. Objective Vital Signs - 12hr 03/07/19 03/07/19 03/07/19 05:10 08:59 09:41 Temperature 99.2 F 97.7 F Pulse Rate 92 H 89 Pulse Rate [ 88 Anterior Bilateral Throughout] Pulse Rate [ 87 Posterior Bilateral Throughout] Respiratory 20 16 Rate Respiratory 18 Rate [Anterior Bilateral Throughout] Respiratory 16 Rate [Posterior Bilateral Throughout] Blood Pressure 105/65 123/76 O2 Sat by Pulse 98 99 Oximetry 03/07/19 09:42 Temperature Pulse Rate Pulse Rate [ Anterior Bilateral Throughout] Pulse Rate [ Posterior Bilateral Throughout] Respiratory Rate Respiratory Rate [Anterior Bilateral Throughout] Respiratory Rate [Posterior Bilateral Throughout] Blood Pressure O2 Sat by Pulse 99 Oximetry Constitutional: no acute distress, alert ENT: oropharynx moist Neck: supple, no JVD Ascultation: Bilateral: diminished breath sounds, other (Prolonged expiratory phase.) Cardiovascular: regular rate and rhythm Gastrointestinal: normoactive bowel sounds, absent bowel sounds, soft, non- tender Integumentary: normal Extremities: no cyanosis, no edema Neurologic: normal mental status, non-focal exam, pupils equal and round, CN II- XII normal Psychiatric: mood appropriate CBC and BMP: 03/06/19 04:32 03/06/19 04:32 ABG, PT/INR, D-dimer: PT/INR, D-dimer PT 14.3 Sec. (12.2-14.9) 03/05/19 18:01 INR 1.05 (0.87-1.13) 03/05/19 18:01 Abnormal lab findings: Abnormal Labs 03/05/19 03/05/19 03/05/19 18:01 18:01 18:19 WBC 16.3 H MCHC Lymph % (Auto) 12.7 L [place] % (Auto) Eos % (Auto) 7.9 H [place] # 1.0 H Eos # 1.3 H Seg Neutrophils % 72.5 H Seg Neutrophils # 11.9 H Creatinine 0.7 L Glucose Albumin 3.4 L 03/06/19 03/06/19 04:32 04:32 WBC 14.4 H MCHC 35 H Lymph % (Auto) [place] % (Auto) 7.4 H Eos % (Auto) 11.8 H [place] # 1.1 H Eos # 1.7 H Seg Neutrophils % Seg Neutrophils # 9.2 H Creatinine 0.5 L Glucose 121 H Albumin
[2019-03-07] MEDS: MORPHINE IV PRN ×2 (14:51→20:29)
--- NOTE | 2019-03-07 15:31 | Progress Note ---
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 At risk for both but likely malignancy. Continue airborne precautions. AFB smears x 3. No fever. Continue Ceftriaxone + Flagyl for possible post obstructive component. HIV negative. Will need CT guided biopsy per pulmonary. Recs: complete total 5 days of empiric abx: Ceftriaxone + Flagyl Continue airborne precautions f/u AFB smears x [address] guided biopsy of the R lung mass Yandy Escobar MD [facility] C: [phone] O: [phone] F: [phone] Subjective Date of service: 03/07/19 Interval history: Still having right chest pressure, cough. No fever. No diarrhea. Objective - Exam Narrative Exam: Physical Exam: Constitutional: Alert, cooperative. No acute distress Head, Ears, Nose: Normocephalic, atraumatic. External ears, nose normal Eyes: Conjunctivae/corneas clear. No icterus. No ptosis. Neck: Supple, no meningeal signs Oral: no thrush, no ulcers Cardiovascular: S1, S2 normal. Respiratory: AE decreased on right side, no wheeze GI: Soft, non-tender; bowel sounds normal. No peritoneal signs Musculoskeletal: No pedal edema, no cyanosis. Skin: No rash or abscess. Multiple tattoos Hem/Lymphatic: No palpable cervical or supraclavicular nodes. No lymphangitis Psych: Mood ok. Affect normal Neurological: Awake, alert, oriented. No gross abnormality - Constitutional Vitals: Vital Signs Temp Pulse Resp BP Pulse Ox 97.9 F 101 H 18 134/90 99 03/07/19 12:39 03/07/19 14:37 03/07/19 14:37 03/07/19 12:39 03/07/19 12:39 Temperature -Last 24 Hours Temperature 97.9 F Temperature 97.7 F Temperature 99.2 F Temperature 99.1 F Temperature 98.9 F - Labs CBC & Chem 7: 03/06/19 04:32 03/06/19 04:32
--- NOTE | 2019-03-07 17:31 | Progress Note ---
Assessment and Plan Assessment and plan: --Acute hypoxic respiratory failure; secondary to Large right hilar mass, Pulmonary following Possible bronch andl biopsy --Atypical Chest pain (likely pleuritic) improved --Large right hilar mass : Possible malignancy , and reactivation tuberculosis Airborne isolation, TB.workup in progress HIV negative, ID following Follow AFB smear 1 negative, follow cultures -- Pulmonary infiltrate/(Acute pneumonia); empiric antibiotics Follow cultures, TB workup --H/o latent TB[ positive PPD 1987 ,treated with antiTB regimen] --Ongoing Tobacco use; smoking cessation counseling and nicotine patch as needed --DVT prophylaxis; Lovenox Monitor closely and adjust management as needed Follow ID and pulmonary recommendations Plan of care is reviewed with the patient and his nurse History Interval history: Patient seen and examined medical records reviewed No new events reported by the nursing staff Pulmonary tuberculosis workup is in progress On airborne isolation Patient complains of mild shortness of breath Wike signs reviewed Hospitalist Physical - Constitutional Vitals: Temp Pulse Resp BP Pulse Ox 97.9 F 101 H 18 134/90 99 03/07/19 12:39 03/07/19 14:37 03/07/19 14:37 03/07/19 12:39 03/07/19 12:39 General appearance: Present: no acute distress, cachectic, disheveled - EENT Eyes: Present: PERRL, EOM intact - Neck Neck: Present: supple - Respiratory Respiratory effort: normal Respiratory: bilateral: diminished, rhonchi, negative: rales, wheezing - Cardiovascular Rhythm: regular Heart Sounds: Present: S1 & S2 - Extremities Extremities: no ischemia, No edema - Abdominal General gastrointestinal: soft, non-tender, non-distended, normal bowel sounds - Integumentary Integumentary: Present: clear, warm - Psychiatric Psychiatric: appropriate mood/affect, cooperative - Neurologic Neurologic: CNII-XII intact, moves all extremities Results - Labs CBC & Chem 7: 03/06/19 04:32 03/06/19 04:32 Labs: Laboratory Last Values WBC 14.4 K/mm3 (4.5-11.0) H 03/06/19 04:32 RBC 4.22 M/mm3 (3.65-5.03) 03/06/19 04:32 Hgb 13.1 gm/dl (11.8-15.2) 03/06/19 04:32 Hct 38.0 % (35.5-45.6) 03/06/19 04:32 MCV 90 fl (84-94) 03/06/19 04:32 MCH 31 pg (28-32) 03/06/19 04:32 MCHC 35 % (32-34) H 03/06/19 04:32 RDW 14.3 % (13.2-15.2) 03/06/19 04:32 Plt Count 407 K/mm3 (140-440) 03/06/19 04:32 Lymph % (Auto) 15.9 % (13.4-35.0) 03/06/19 04:32 [place] % (Auto) 7.4 % (0.0-7.3) H 03/06/19 04:32 Eos % (Auto) 11.8 % (0.0-4.3) H 03/06/19 04:32 Baso % (Auto) 0.7 % (0.0-1.8) 03/06/19 04:32 Lymph # 2.3 K/mm3 (1.2-5.4) 03/06/19 04:32 [place] # 1.1 K/mm3 (0.0-0.8) H 03/06/19 04:32 Eos # 1.7 K/mm3 (0.0-0.4) H 03/06/19 04:32 Baso # 0.1 K/mm3 (0.0-0.1) 03/06/19 04:32 Seg Neutrophils % 64.2 % (40.0-70.0) 03/06/19 04:32 Seg Neutrophils # 9.2 K/mm3 (1.8-7.7) H 03/06/19 04:32 PT 14.3 Sec. (12.2-14.9) 03/05/19 18:01 INR 1.05 (0.87-1.13) 03/05/19 18:01 APTT 29.9 Sec. (24.2-36.6) 03/05/19 18:01 Sodium 139 mmol/L (137-145) 03/06/19 04:32 Potassium 4.5 mmol/L (3.6-5.0) 03/06/19 04:32 Chloride 103.0 mmol/L (98-107) 03/06/19 04:32 Carbon Dioxide 24 mmol/L (22-30) 03/06/19 04:32 17 mmol/L 03/06/19 04:32 BUN 10 mg/dL (9-20) 03/06/19 04:32 0.5 mg/dL (0.8-1.5) L 03/06/19 04:32 Estimated GFR > 60 ml/min 03/06/19 04:32 20 % 03/06/19 04:32 Glucose 121 mg/dL (75-100) H 03/06/19 04:32 Calcium 9.3 mg/dL (8.4-10.2) 03/06/19 04:32 0.30 mg/dL (0.1-1.2) 03/05/19 18:19 < 0.2 mg/dL (0-0.2) 03/05/19 18:19 0.1 mg/dL 03/05/19 18:19 AST 14 units/L (5-40) 03/05/19 18:19 ALT 13 units/L (7-56) 03/05/19 18:19 117 units/L (35-129) 03/05/19 18:19 < 0.010 ng/mL (0.00-0.029) 03/05/19 23:28 NT-Pro-B Natriuret Pep 113.5 pg/mL (0-900) 03/05/19 18:19 7.1 g/dL (6.3-8.2) 03/05/19 18:19 3.4 g/dL (3.9-5) L 03/05/19 18:19 0.9 % 03/05/19 18:19 16 units/L (13-60) 03/05/19 18:19 HIV 1&2 Antibody Rapid Non react (Non React) 03/07/19 Unknown Non react (Non React) 03/07/19 Unknown 03/06/19 Unknown Active Medications - Current Medications Current Medications: Generic Name Dose Route Start Last Admin Trade Name Freq PRN Reason Stop Dose Admin Acetaminophen 650 mg 03/05/19 22:11 03/07/19 05:53 Tylenol PO 650 mg Q4H PRN Administration Pain MILD(1-3)/Fever >100.5/BOO Albuterol/Ipratropium 1 ampul 03/06/19 02:00 03/07/19 14:34 Duoneb *Not For Prn Use* IH 1 ampul Q6HRT FRANCISCO JAVIER Administration Benzonatate 200 mg 03/06/19 06:00 03/07/19 14:52 Tessalon Perles PO 200 mg Q8HR FRANCISCO JAVIER Administration Budesonide 0.5 mg 03/06/19 08:00 03/07/19 09:37 Pulmicort IH 0.5 mg Q12HRT FRANCISCO JAVIER Administration Enoxaparin Sodium 40 mg 03/06/19 10:00 03/07/19 09:50 Lovenox SUB-Q 40 mg QDAY FRANCISCO JAVIER Administration Famotidine 20 mg 03/07/19 22:00 Pepcid PO BID FRANCISCO JAVIER Sodium Chloride 1,000 mls @ 42 mls/hr 03/05/19 23:00 03/06/19 03:03 Nacl 0.9% 1000 Ml IV 42 mls/hr DIRECT FRANCISCO JAVIER Administration Ceftriaxone Sodium 2 gm in 100 mls @ 200 mls/hr 03/06/19 10:00 03/07/19 09:50 Rocephin/Ns 2 Gm/100 Ml IV 200 mls/hr Q24HR FRANCISCO JAVIER Administration Protocol Metronidazole 500 mg in 100 mls @ 100 mls/hr 03/06/19 14:00 03/07/19 14:51 Flagyl 500 Mg/100 Ml IV 100 mls/hr Q8HR FRANCISCO JAVIER Administration Protocol Morphine Sulfate 2 mg 03/05/19 22:11 03/07/19 14:51 Morphine IV 2 mg Q4H PRN Administration Pain, Moderate (4-6) Ondansetron HCl 4 mg 03/05/19 22:11 Zofran IV Q8H PRN Nausea And Vomiting Sodium Chloride 10 ml 03/06/19 10:00 03/07/19 09:50 Sodium Chloride Flush Syringe 10 Ml IV 10 ml BID FRANCISCO JAVIER Administration Sodium Chloride 10 ml 03/05/19 22:11 Sodium Chloride Flush Syringe 10 Ml IV PRN PRN LINE FLUSH
[2019-03-07] MEDS: RESTORIL PO PRN (22:43)
[2019-03-07] MEDS: PEPCID PO SCH (22:44)
[2019-03-08] MEDS: DUONEB *Not for PRN Use IH SCH ×4 (01:10→19:33)
[2019-03-08] MEDS: MORPHINE IV PRN (04:30)
[2019-03-08] MEDS: SODIUM CHLORIDE FLUSH SYRINGE 10 ML IV PRN ×2 (04:35→06:02)
[2019-03-08] MEDS: TESSALON PERLES PO SCH ×3 (06:01→23:12)
[2019-03-08] MEDS: FLAGYL 500 MG/100 ML 500 MG/100 ML BAG IV SCH ×3 (06:01→23:13)
[2019-03-08] MEDS ORDERED: PROVENTIL IH PRN (06:04)
[2019-03-08] MEDS: PULMICORT IH SCH ×2 (08:35→19:33)
--- NOTE | 2019-03-08 09:54 | Progress Note ---
Assessment and Plan Cultures: 03/05/2019 blood culture: no growth thus far A/P: 68-year-old male who is originally from [place], moved here in the 1980s, also has a history of latent TB infection based on positive PPD, [facility], admitted with chronic cough and: 1) R hilar mass: concerning for malignancy v/s TB reactivation. At risk for both but likely malignancy. Continue airborne precautions. AFB smears x 3. No fever. Continue Ceftriaxone + Flagyl for possible post obstructive component. HIV negative. Once TB ruled Out, Right upper lobe mass easily amenable to percut aneous needle biopsy under CT guidance- Pulmonary following. Recs: complete total 5 days of empiric abx: Ceftriaxone + Flagyl, D3 of D5 Continue airborne precautions f/u AFB smears x 3 follow-up [facility] M: [phone] O:[phone] Subjective Date of service: 03/08/19 Interval history: Patient seen and examined. Reports continued chest pain an coughing. Low grade fever. Objective - Exam Narrative Exam: Constitutional: Alert, cooperative. Mild distress observed Head, Ears, Nose: Normocephalic, atraumatic. External ears, nose normal Eyes: Conjunctivae/corneas clear. No icterus. No ptosis. Neck: Supple, no meningeal signs Oral: no thrush, no ulcers Cardiovascular: S1, S2 normal. Respiratory: AE decreased on right side, no wheeze GI: Soft, non-tender; bowel sounds normal. No peritoneal signs Musculoskeletal: No pedal edema, no cyanosis. Skin: No rash or abscess. Multiple tattoos Hem/Lymphatic: No palpable cervical or supraclavicular nodes. No lymphangitis Psych: Mood ok. Affect normal Neurological: Awake, alert, oriented. No gross abnormality - Constitutional Vitals: Vital Signs Temp Pulse Resp BP Pulse Ox 100.0 F H 106 H 18 112/75 99 03/08/19 05:19 03/08/19 08:49 03/08/19 08:49 03/08/19 05:15 03/08/19 08:34 Temperature -Last 24 Hours Temperature 100.0 F Temperature 98.6 F Temperature 99.4 F Temperature 98.1 F Temperature 97.9 F - Labs CBC & Chem 7: 03/06/19 04:32 03/06/19 04:32
--- NOTE | 2019-03-08 11:23 | Progress Note ---
Assessment and Plan Assessment and plan: --Large right hilar mass : Possible malignancy , and reactivation tuberculosis Airborne isolation, TB.workup in progress HIV negative, ID following Follow AFB smear 3, 2 AFB negative so far, follow cultures -- Pulmonary infiltrate/(Acute pneumonia); empiric antibiotics Follow cultures, TB workup --H/o latent TB[ positive PPD 1986 ,treated with antiTB regimen] --Ongoing Tobacco use; smoking cessation counseling and nicotine patch as needed --DVT prophylaxis; Lovenox Monitor closely and adjust management as needed Follow ID and pulmonary recommendations Plan of care is reviewed with the patient and his nurse History Interval history: Patient seen and examined medical records reviewed Patient complaints of mild cough and shortness of breath Airborne Isolation , patient is chronically ill cachectic Vital signs noted Hospitalist Physical - Constitutional Vitals: Temp Pulse Resp BP Pulse Ox 100.0 F H 106 H 18 112/75 99 03/08/19 05:19 03/08/19 08:49 03/08/19 08:49 03/08/19 05:15 03/08/19 08:34 General appearance: Present: no acute distress, cachectic, disheveled - EENT Eyes: Present: PERRL, EOM intact - Neck Neck: Present: supple, normal ROM - Respiratory Respiratory effort: normal Respiratory: bilateral: diminished, rhonchi, negative: rales, wheezing - Cardiovascular Rhythm: regular Heart Sounds: Present: S1 & S2 - Extremities Extremities: no ischemia, No edema - Abdominal General gastrointestinal: soft, non-tender, non-distended, normal bowel sounds - Integumentary Integumentary: Present: clear, warm - Psychiatric Psychiatric: appropriate mood/affect, cooperative - Neurologic Neurologic: CNII-XII intact, moves all extremities Results - Labs CBC & Chem 7: 03/09/19 06:01 03/09/19 06:01 Labs: Laboratory Last Values WBC 14.4 K/mm3 (4.5-11.0) H 03/06/19 04:32 RBC 4.22 M/mm3 (3.65-5.03) 03/06/19 04:32 Hgb 13.1 gm/dl (11.8-15.2) 03/06/19 04:32 Hct 38.0 % (35.5-45.6) 03/06/19 04:32 MCV 90 fl (84-94) 03/06/19 04:32 MCH 31 pg (28-32) 03/06/19 04:32 MCHC 35 % (32-34) H 03/06/19 04:32 RDW 14.3 % (13.2-15.2) 03/06/19 04:32 Plt Count 407 K/mm3 (140-440) 03/06/19 04:32 Lymph % (Auto) 15.9 % (13.4-35.0) 03/06/19 04:32 [place] % (Auto) 7.4 % (0.0-7.3) H 03/06/19 04:32 Eos % (Auto) 11.8 % (0.0-4.3) H 03/06/19 04:32 Baso % (Auto) 0.7 % (0.0-1.8) 03/06/19 04:32 Lymph # 2.3 K/mm3 (1.2-5.4) 03/06/19 04:32 [place] # 1.1 K/mm3 (0.0-0.8) H 03/06/19 04:32 Eos # 1.7 K/mm3 (0.0-0.4) H 03/06/19 04:32 Baso # 0.1 K/mm3 (0.0-0.1) 03/06/19 04:32 Seg Neutrophils % 64.2 % (40.0-70.0) 03/06/19 04:32 Seg Neutrophils # 9.2 K/mm3 (1.8-7.7) H 03/06/19 04:32 PT 14.3 Sec. (12.2-14.9) 03/05/19 18:01 INR 1.05 (0.87-1.13) 03/05/19 18:01 APTT 29.9 Sec. (24.2-36.6) 03/05/19 18:01 Sodium 139 mmol/L (137-145) 03/06/19 04:32 Potassium 4.5 mmol/L (3.6-5.0) 03/06/19 04:32 Chloride 103.0 mmol/L (98-107) 03/06/19 04:32 Carbon Dioxide 24 mmol/L (22-30) 03/06/19 04:32 17 mmol/L 03/06/19 04:32 BUN 10 mg/dL (9-20) 03/06/19 04:32 0.5 mg/dL (0.8-1.5) L 03/06/19 04:32 Estimated GFR > 60 ml/min 03/06/19 04:32 20 % 03/06/19 04:32 Glucose 121 mg/dL (75-100) H 03/06/19 04:32 Calcium 9.3 mg/dL (8.4-10.2) 03/06/19 04:32 0.30 mg/dL (0.1-1.2) 03/05/19 18:19 < 0.2 mg/dL (0-0.2) 03/05/19 18:19 0.1 mg/dL 03/05/19 18:19 AST 14 units/L (5-40) 03/05/19 18:19 ALT 13 units/L (7-56) 03/05/19 18:19 117 units/L (35-129) 03/05/19 18:19 < 0.010 ng/mL (0.00-0.029) 03/05/19 23:28 NT-Pro-B Natriuret Pep 113.5 pg/mL (0-900) 03/05/19 18:19 7.1 g/dL (6.3-8.2) 03/05/19 18:19 3.4 g/dL (3.9-5) L 03/05/19 18:19 0.9 % 03/05/19 18:19 16 units/L (13-60) 03/05/19 18:19 HIV 1&2 Antibody Rapid Non react (Non React) 03/07/19 Unknown Non react (Non React) 03/07/19 Unknown 03/06/19 Unknown Active Medications - Current Medications Current Medications: Generic Name Dose Route Start Last Admin Trade Name Freq PRN Reason Stop Dose Admin Acetaminophen 650 mg 03/05/19 22:11 03/07/19 05:53 Tylenol PO 650 mg Q4H PRN Administration Pain MILD(1-3)/Fever >100.5/BOO Albuterol 2.5 mg 03/08/19 06:04 Proventil IH Q4HRT PRN Shortness Of Breath Albuterol/Ipratropium 1 ampul 03/06/19 02:00 03/08/19 08:35 Duoneb *Not For Prn Use* IH 1 ampul Q6HRT FRANCISCO JAVIER Administration Benzonatate 200 mg 03/06/19 06:00 03/08/19 06:01 Tessalon Perles PO 200 mg Q8HR FRANCISCO JAVIER Administration Budesonide 0.5 mg 03/06/19 08:00 03/08/19 08:35 Pulmicort IH 0.5 mg Q12HRT FRANCISCO JAVIER Administration Enoxaparin Sodium 40 mg 03/06/19 10:00 03/07/19 09:50 Lovenox SUB-Q 40 mg QDAY FRANCISCO JAVIER Administration Famotidine 20 mg 03/07/19 22:00 03/07/19 22:44 Pepcid PO 20 mg BID FRANCISCO JAVIER Administration Sodium Chloride 1,000 mls @ 42 mls/hr 03/05/19 23:00 03/06/19 03:03 Nacl 0.9% 1000 Ml IV 42 mls/hr DIRECT FRANCISCO JAVIER Administration Ceftriaxone Sodium 2 gm in 100 mls @ 200 mls/hr 03/06/19 10:00 03/07/19 09:50 Rocephin/Ns 2 Gm/100 Ml IV 200 mls/hr Q24HR FRANCISCO JAVIER Administration Protocol Metronidazole 500 mg in 100 mls @ 100 mls/hr 03/06/19 14:00 03/08/19 06:01 Flagyl 500 Mg/100 Ml IV 100 mls/hr Q8HR FRANCISCO JAVIER Administration Protocol Ondansetron HCl 4 mg 03/05/19 22:11 Zofran IV Q8H PRN Nausea And Vomiting Oxycodone/Acetaminophen 1 tab 03/08/19 11:30 Percocet 5/325 PO Q8H PRN Pain, Moderate (4-6) Sodium Chloride 10 ml 03/06/19 10:00 03/07/19 22:44 Sodium Chloride Flush Syringe 10 Ml IV 10 ml BID FRANCISCO JAVIER Administration Sodium Chloride 10 ml 03/05/19 22:11 03/08/19 06:02 Sodium Chloride Flush Syringe 10 Ml IV 10 ml PRN PRN Administration LINE FLUSH Temazepam 15 mg 03/07/19 22:04 03/07/19 22:43 Restoril PO 15 mg QHS PRN Administration Sleep
--- NOTE | 2019-03-08 11:28 | Progress Note ---
Assessment and Plan Patient awake complaining chest pain.Requesting pain medications all the time. Patient is on room air. O2 Saturation 99%. No acute respiratory distress. Sputum for AFB x 3 reported smear negative. Scheduling the patient for percutaneous nee dle biopsy of right chest lesion under CT guidance. Explained the procedure to the patient. - Patient Problems (1) Shortness of breath Current Visit: Yes Status: Acute Plan to address problem: O2 3 litres via nasal canula. Albuterol/atrovent aerosol treatments q 6 hours. Continue ceftrioxone and metronidazole. Continue S/C Lovenox. Continue famotidine. (2) Mass of right lung Current Visit: Yes Status: Acute Plan to address problem: Patient scheduled for percutaneous needle biopsy of right chest lesion under CT Guidance. Subjective Date of service: 03/08/19 Interval history: Patient awake complaining chest pain.Requesting pain medications all the time. Patient is on room air. O2 Saturation 99%. No acute respiratory distress. Sputum for AFB x 2 reported smar negative. Scheduling the patient for percutaneous needle biopsy of right chest lesion under CT guidance. Explained the procedure to the patient. Objective Vital Signs - 12hr 03/08/19 03/08/19 03/08/19 00:11 00:14 03:45 Temperature 98.6 F Pulse Rate 119 H 109 H Pulse Rate [ Posterior Bilateral Throughout] Respiratory 20 Rate Respiratory Rate [Posterior Bilateral Throughout] Blood Pressure 131/90 O2 Sat by Pulse 99 Oximetry 03/08/19 03/08/19 03/08/19 05:15 05:19 08:34 Temperature 100.0 F H Pulse Rate 111 H Pulse Rate [ Posterior Bilateral Throughout] Respiratory 20 Rate Respiratory Rate [Posterior Bilateral Throughout] Blood Pressure 112/75 O2 Sat by Pulse 95 99 Oximetry 03/08/19 03/08/19 08:35 08:49 Temperature Pulse Rate Pulse Rate [ 104 H 106 H Posterior Bilateral Throughout] Respiratory Rate Respiratory 20 18 Rate [Posterior Bilateral Throughout] Blood Pressure O2 Sat by Pulse Oximetry Constitutional: no acute distress, alert ENT: oropharynx moist Neck: supple, no JVD Ascultation: Bilateral: diminished breath sounds, other (Prolonged expiratory phase.) Cardiovascular: regular rate and rhythm Gastrointestinal: normoactive bowel sounds, absent bowel sounds, soft, non- tender Integumentary: normal Extremities: no cyanosis, no edema Neurologic: normal mental status, non-focal exam, pupils equal and round, CN II- XII normal Psychiatric: mood appropriate CBC and BMP: 03/06/19 04:32 03/06/19 04:32 ABG, PT/INR, D-dimer: PT/INR, D-dimer PT 14.3 Sec. (12.2-14.9) 03/05/19 18:01 INR 1.05 (0.87-1.13) 03/05/19 18:01 Abnormal lab findings: Abnormal Labs 03/05/19 03/05/19 03/05/19 18:01 18:01 18:19 WBC 16.3 H MCHC Lymph % (Auto) 12.7 L [place] % (Auto) Eos % (Auto) 7.9 H [place] # 1.0 H Eos # 1.3 H Seg Neutrophils % 72.5 H Seg Neutrophils # 11.9 H Creatinine 0.7 L Glucose Albumin 3.4 L 03/06/19 03/06/19 04:32 04:32 WBC 14.4 H MCHC 35 H Lymph % (Auto) [place] % (Auto) 7.4 H Eos % (Auto) 11.8 H [place] # 1.1 H Eos # 1.7 H Seg Neutrophils % Seg Neutrophils # 9.2 H Creatinine 0.5 L Glucose 121 H Albumin
[2019-03-08] MEDS: ROCEPHIN/NS 2 GM/100 ML 2 GM/100 ML BAG IV SCH (12:07)
[2019-03-08] MEDS: PERCOCET 5/325 PO PRN ×2 (12:08→18:45)
[2019-03-08] MEDS: PEPCID PO SCH ×2 (12:08→23:12)
[2019-03-08] MEDS: LOVENOX SUB-Q SCH (12:09)
[2019-03-08] MEDS: SODIUM CHLORIDE FLUSH SYRINGE 10 ML IV SCH ×2 (12:10→23:13)
[2019-03-09] MEDS: PERCOCET 5/325 PO PRN ×3 (00:30→15:56)
[2019-03-09] MEDS: RESTORIL PO PRN ×2 (00:38→22:44)
[2019-03-09 00:46] LABS: Basophils % (Auto) 0.2 % (0.0-1.8); Eosinophils # (Auto) 0.9 K/mm3 (0.0-0.4); Eosinophils % (Auto) 6.1 % (0.0-4.3); Hematocrit 35.9 % (35.5-45.6); Hemoglobin 12.4 gm/dl (11.8-15.2); Lymphocytes # (Auto) 2.2 K/mm3 (1.2-5.4); Lymphocytes % (Auto) 15.3 % (13.4-35.0); Mean Corpuscular HGB Conc 35 % (32-34); Mean Corpuscular Volume 89 fl (84-94); Monocytes # (Auto) 1.4 K/mm3 (0.0-0.8); Monocytes % (Auto) 9.6 % (0.0-7.3); Platelet Count 349 K/mm3 (140-440); Red Blood Count 4.02 M/mm3 (3.65-5.03); Red Cell Distribution Width 14.4 % (13.2-15.2)
[2019-03-09] MEDS: TESSALON PERLES PO SCH ×3 (06:09→22:44)
[2019-03-09] MEDS: FLAGYL 500 MG/100 ML 500 MG/100 ML BAG IV SCH ×3 (06:09→22:45)
[2019-03-09 06:26] LABS: Basophils # (Auto) 0.1 K/mm3 (0.0-0.1); Basophils % (Auto) 0.4 % (0.0-1.8); Eosinophils # (Auto) 1.2 K/mm3 (0.0-0.4); Eosinophils % (Auto) 8.2 % (0.0-4.3); Hematocrit 36.6 % (35.5-45.6); Hemoglobin 12.5 gm/dl (11.8-15.2); Lymphocytes # (Auto) 2.4 K/mm3 (1.2-5.4); Lymphocytes % (Auto) 16.8 % (13.4-35.0); Mean Corpuscular HGB Conc 34 % (32-34); Mean Corpuscular Volume 90 fl (84-94); Monocytes # (Auto) 1.6 K/mm3 (0.0-0.8); Monocytes % (Auto) 10.9 % (0.0-7.3); Platelet Count 352 K/mm3 (140-440); Red Blood Count 4.06 M/mm3 (3.65-5.03); Red Cell Distribution Width 14.1 % (13.2-15.2)
[2019-03-09 06:49] LABS: BUN/Creatinine Ratio 26; Blood Urea Nitrogen 13 mg/dL (9-20); Calcium 9.3 mg/dL (8.4-10.2); Hemolysis Index 4
--- NOTE | 2019-03-09 08:32 | Progress Note ---
Assessment and Plan --Large right hilar mass : Possible malignancy , and reactivation tuberculosis Airborne isolation, TB.workup in progress HIV negative, ID following Follow AFB smear 3, 2 AFB negative so far, follow cultures -- Pulmonary infiltrate/(Acute pneumonia); empiric antibiotics Follow cultures, TB workup --H/o active TB[ positive PPD 1986 ,treated with antiTB regimen] --Ongoing Tobacco use; smoking cessation counseling and nicotine withdrawal precatuions -Keep NPO overnight, stop anticoagulation. Plan for fiberoptic bronchosopy with biopsies in the morning. Scheduled for 10 am tomorrow. The risks, benefits, indications and alternative to bronchoscopy were discussed. Patient verbalized understanding.. His questions were answered. He wished to proceed with bronchsocopy. Also asked that he have a family member present tomorrow for the procedure. Subjective Date of service: 03/09/19 Interval history: Patient is seen today for: Pt is a 68-year-old male with PMHx of positive PPD skin test, treated with antituberculosis regimen for 6 months in 1986. Pt was brought by EMS for c/o chest pain and cough, He states that the cough is non productive, he has been coughing for nearly 2 months. Pt also reports sharp chest pain associated with the cough, he reports SOB, denies palpitation, denies nausea or vomiting. 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 Pt denies blood in the sputum, denies fever, denies chills, denies night sweats, he reports some weight loss for working in the sun and burning a lot of calories at work, he reports good appetite. Pt had a CT A chest that showed a large right lung mass, concerning for malignancy, pt is admitted for further evaluation and treatment. Seen and examined at bedside; 24hour events reviewed; nursing and respiratory care staff consulted; no adverse overnight events reported to me; He is upset because he is not getting a CT guided biopsy Objective - Exam Narrative Exam: Constitutional: Alert, cooperative. Mild distress observed Head, Ears, Nose: Normocephalic, atraumatic. External ears, nose normal Eyes: Conjunctivae/corneas clear. No icterus. No ptosis. Neck: Supple, no meningeal signs Oral: no thrush, no ulcers Cardiovascular: S1, S2 normal. Respiratory: AE decreased on right side, no wheeze GI: Soft, non-tender; bowel sounds normal. No peritoneal signs Musculoskeletal: No pedal edema, no cyanosis. Skin: No rash or abscess. Multiple tattoos Hem/Lymphatic: No palpable cervical or supraclavicular nodes. No lymphangitis Psych: Mood ok. Affect normal Neurological: Awake, alert, oriented. No gross abnormality Vital Signs - 12hr 03/08/19 03/08/19 03/08/19 21:25 22:49 23:03 Temperature 98.2 F Pulse Rate 120 H Pulse Rate [ 106 H Posterior Bilateral Throughout] Respiratory 18 Rate Respiratory 18 Rate [Posterior Bilateral Throughout] Blood Pressure 144/77 O2 Sat by Pulse 98 96 Oximetry 03/09/19 03/09/19 01:17 03:40 Temperature 98.3 F Pulse Rate 114 H 96 H Pulse Rate [ Posterior Bilateral Throughout] Respiratory 18 Rate Respiratory Rate [Posterior Bilateral Throughout] Blood Pressure 113/72 O2 Sat by Pulse 98 Oximetry Constitutional: no acute distress, alert ENT: oropharynx moist Neck: supple, no JVD Ascultation: Bilateral: diminished breath sounds, other (Prolonged expiratory phase.) Cardiovascular: regular rate and rhythm Gastrointestinal: normoactive bowel sounds, absent bowel sounds, soft, non- tender Integumentary: normal Extremities: no cyanosis, no edema Neurologic: normal mental status, non-focal exam, pupils equal and round, CN II- XII normal Psychiatric: mood appropriate CBC and BMP: 03/09/19 06:01 03/09/19 06:01 ABG, PT/INR, D-dimer: PT/INR, D-dimer PT 14.3 Sec. (12.2-14.9) 03/05/19 18:01 INR 1.05 (0.87-1.13) 03/05/19 18:01 Abnormal lab findings: Abnormal Labs 03/05/19 03/05/19 03/05/19 18:01 18:01 18:19 WBC 16.3 H MCHC Lymph % (Auto) 12.7 L [place] % (Auto) Eos % (Auto) 7.9 H [place] # 1.0 H Eos # 1.3 H Seg Neutrophils % 72.5 H Seg Neutrophils # 11.9 H Creatinine 0.7 L Glucose POC Glucose Albumin 3.4 L 03/06/19 03/06/19 03/08/19 04:32 04:32 13:01 WBC 14.4 H MCHC 35 H Lymph % (Auto) [place] % (Auto) 7.4 H Eos % (Auto) 11.8 H [place] # 1.1 H Eos # 1.7 H Seg Neutrophils % Seg Neutrophils # 9.2 H Creatinine 0.5 L Glucose 121 H POC Glucose 114 H Albumin 03/09/19 03/09/19 03/09/19 00:18 06:01 06:01 WBC 14.7 H 14.2 H MCHC 35 H Lymph % (Auto) [place] % (Auto) 9.6 H 10.9 H Eos % (Auto) 6.1 H 8.2 H [place] # 1.4 H 1.6 H Eos # 0.9 H 1.2 H Seg Neutrophils % Seg Neutrophils # 10.1 H 9.1 H Creatinine 0.5 L Glucose 126 H POC Glucose Albumin CT scan - chest: image reviewed (Review of the CT scan shows what looks like an endobronchial lesions with hilar involvement)
--- NOTE | 2019-03-09 09:02 | Progress Note ---
Assessment and Plan Cultures: 03/05/2019 blood culture: no growth thus far A/P: 68-year-old male who is originally from [place], moved here in the 1980s, also has a history of latent TB infection based on positive PPD, [facility], admitted with chronic cough and: 1) R hilar mass: concerning for malignancy v/s TB reactivation. At risk for both but likely malignancy. Continue airborne precautions. AFB smears x 3. No fever. Continue Ceftriaxone + Flagyl for possible post obstructive component. HIV negative. Once TB ruled Out, Right upper lobe mass easily amenable to percut aneous needle biopsy under CT guidance- Pulmonary following. Recs: complete total 5 days of empiric abx: Ceftriaxone + Flagyl, D4 of D5 Continue airborne precautions f/u AFB smears x 3 follow-up [facility] M: [phone] O:[phone] Subjective Date of service: 03/09/19 Interval history: Patient seen and examined. Reports continued chest pain an coughing. no fevers. Objective - Exam Narrative Exam: Constitutional: Alert, cooperative. Mild distress observed Head, Ears, Nose: Normocephalic, atraumatic. External ears, nose normal Eyes: Conjunctivae/corneas clear. No icterus. No ptosis. Neck: Supple, no meningeal signs Oral: no thrush, no ulcers Cardiovascular: S1, S2 normal. Respiratory: AE decreased on right side, no wheeze GI: Soft, non-tender; bowel sounds normal. No peritoneal signs Musculoskeletal: No pedal edema, no cyanosis. Skin: No rash or abscess. Multiple tattoos Hem/Lymphatic: No palpable cervical or supraclavicular nodes. No lymphangitis Psych: Mood ok. Affect normal Neurological: Awake, alert, oriented. No gross abnormality - Constitutional Vitals: Vital Signs Temp Pulse Resp BP Pulse Ox 98.3 F 96 H 18 113/72 98 03/09/19 03:40 03/09/19 03:40 03/09/19 03:40 03/09/19 03:40 03/09/19 03:40 Temperature -Last 24 Hours Temperature 98.3 F Temperature 98.2 F Temperature 98.1 F Temperature 98.1 F Temperature 98.2 F Temperature 98.3 F - Labs CBC & Chem 7: 03/09/19 06:01 03/09/19 06:01 Labs: Abnormal lab results 03/08/19 03/09/19 03/09/19 Range/Units 13:01 00:18 06:01 WBC 14.7 H 14.2 H (4.5-11.0) K/mm3 MCHC 35 H (32-34) % [place] % (Auto) 9.6 H 10.9 H (0.0-7.3) % Eos % (Auto) 6.1 H 8.2 H (0.0-4.3) % [place] # 1.4 H 1.6 H (0.0-0.8) K/mm3 Eos # 0.9 H 1.2 H (0.0-0.4) K/mm3 Seg Neutrophils # 10.1 H 9.1 H (1.8-7.7) K/mm3 Creatinine (0.8-1.5) mg/dL Glucose (75-100) mg/dL POC Glucose 114 H (70-105) 03/09/19 Range/Units 06:01 WBC (4.5-11.0) K/mm3 MCHC (32-34) % [place] % (Auto) (0.0-7.3) % Eos % (Auto) (0.0-4.3) % [place] # (0.0-0.8) K/mm3 Eos # (0.0-0.4) K/mm3 Seg Neutrophils # (1.8-7.7) K/mm3 Creatinine 0.5 L (0.8-1.5) mg/dL Glucose 126 H (75-100) mg/dL POC Glucose (70-105)
[2019-03-09] MEDS: PEPCID PO SCH ×2 (11:12→22:44)
[2019-03-09] MEDS: ROCEPHIN/NS 2 GM/100 ML 2 GM/100 ML BAG IV SCH (11:12)
[2019-03-09] MEDS: PULMICORT IH SCH ×2 (13:04→20:38)
[2019-03-09] MEDS: DUONEB *Not for PRN Use IH SCH ×4 (13:04→20:38)
--- NOTE | 2019-03-09 15:48 | Progress Note ---
Assessment and Plan Assessment and plan: --Large right hilar mass : Possible malignancy , and reactivation tuberculosis Airborne isolation, TB.workup in progress HIV negative, ID following Follow AFB smear 3 negative so far, follow cultures Possible lung mass biopsy tomorrow . Pulmonology following -- Pulmonary infiltrate/(Acute pneumonia); empiric antibiotics Follow cultures, TB workup --H/o latent TB[ positive PPD 1987 ,treated with antiTB regimen] --Ongoing Tobacco use; smoking cessation counseling and nicotine patch as needed --DVT prophylaxis; Lovenox Monitor closely and adjust management as needed Follow ID and pulmonary recommendations Plan of care is reviewed with the patient and his nurse History Interval history: Patient seen and examined medical records Patient feels better complaints of mild shortness of breath Alert awake oriented. Vital signs noted Hospitalist Physical - Constitutional Vitals: Temp Pulse Resp BP Pulse Ox 98.3 F 105 H 20 113/72 98 03/09/19 03:40 03/09/19 13:21 03/09/19 13:21 03/09/19 03:40 03/09/19 13:31 General appearance: Present: no acute distress, cachectic, disheveled - EENT Eyes: Present: PERRL, EOM intact - Neck Neck: Present: supple, normal ROM - Respiratory Respiratory effort: normal Respiratory: bilateral: diminished, rhonchi, negative: rales, wheezing - Cardiovascular Rhythm: regular Heart Sounds: Present: S1 & S2 - Extremities Extremities: no ischemia, No edema - Abdominal General gastrointestinal: soft, non-tender, non-distended, normal bowel sounds - Integumentary Integumentary: Present: clear, warm - Psychiatric Psychiatric: appropriate mood/affect, cooperative - Neurologic Neurologic: CNII-XII intact, moves all extremities Results - Labs CBC & Chem 7: 03/09/19 06:01 03/09/19 06:01 Labs: Laboratory Last Values WBC 14.2 K/mm3 (4.5-11.0) H 03/09/19 06:01 RBC 4.06 M/mm3 (3.65-5.03) 03/09/19 06:01 Hgb 12.5 gm/dl (11.8-15.2) 03/09/19 06:01 Hct 36.6 % (35.5-45.6) 03/09/19 06:01 MCV 90 fl (84-94) 03/09/19 06:01 MCH 31 pg (28-32) 03/09/19 06:01 MCHC 34 % (32-34) 03/09/19 06:01 RDW 14.1 % (13.2-15.2) 03/09/19 06:01 Plt Count 352 K/mm3 (140-440) 03/09/19 06:01 Lymph % (Auto) 16.8 % (13.4-35.0) 03/09/19 06:01 [place] % (Auto) 10.9 % (0.0-7.3) H 03/09/19 06:01 Eos % (Auto) 8.2 % (0.0-4.3) H 03/09/19 06:01 Baso % (Auto) 0.4 % (0.0-1.8) 03/09/19 06:01 Lymph # 2.4 K/mm3 (1.2-5.4) 03/09/19 06:01 [place] # 1.6 K/mm3 (0.0-0.8) H 03/09/19 06:01 Eos # 1.2 K/mm3 (0.0-0.4) H 03/09/19 06:01 Baso # 0.1 K/mm3 (0.0-0.1) 03/09/19 06:01 Seg Neutrophils % 63.7 % (40.0-70.0) 03/09/19 06:01 Seg Neutrophils # 9.1 K/mm3 (1.8-7.7) H 03/09/19 06:01 PT 14.3 Sec. (12.2-14.9) 03/05/19 18:01 INR 1.05 (0.87-1.13) 03/05/19 18:01 APTT 29.9 Sec. (24.2-36.6) 03/05/19 18:01 Sodium 137 mmol/L (137-145) 03/09/19 06:01 Potassium 4.8 mmol/L (3.6-5.0) 03/09/19 06:01 Chloride 100.2 mmol/L (98-107) 03/09/19 06:01 Carbon Dioxide 26 mmol/L (22-30) 03/09/19 06:01 16 mmol/L 03/09/19 06:01 BUN 13 mg/dL (9-20) 03/09/19 06:01 0.5 mg/dL (0.8-1.5) L 03/09/19 06:01 Estimated GFR > 60 ml/min 03/09/19 06:01 26 % 03/09/19 06:01 Glucose 126 mg/dL (75-100) H 03/09/19 06:01 POC Glucose 114 (70-105) H 03/08/19 13:01 Calcium 9.3 mg/dL (8.4-10.2) 03/09/19 06:01 0.30 mg/dL (0.1-1.2) 03/05/19 18:19 < 0.2 mg/dL (0-0.2) 03/05/19 18:19 0.1 mg/dL 03/05/19 18:19 AST 14 units/L (5-40) 03/05/19 18:19 ALT 13 units/L (7-56) 03/05/19 18:19 117 units/L (35-129) 03/05/19 18:19 < 0.010 ng/mL (0.00-0.029) 03/05/19 23:28 NT-Pro-B Natriuret Pep 113.5 pg/mL (0-900) 03/05/19 18:19 7.1 g/dL (6.3-8.2) 03/05/19 18:19 3.4 g/dL (3.9-5) L 03/05/19 18:19 0.9 % 03/05/19 18:19 16 units/L (13-60) 03/05/19 18:19 HIV 1&2 Antibody Rapid Non react (Non React) 03/07/19 Unknown Non react (Non React) 03/07/19 Unknown 03/08/19 Unknown Active Medications - Current Medications Current Medications: Generic Name Dose Route Start Last Admin Trade Name Freq PRN Reason Stop Dose Admin Acetaminophen 650 mg 03/05/19 22:11 03/07/19 05:53 Tylenol PO 650 mg Q4H PRN Administration Pain MILD(1-3)/Fever >100.5/BOO Albuterol 2.5 mg 03/08/19 06:04 Proventil IH Q4HRT PRN Shortness Of Breath Albuterol/Ipratropium 1 ampul 03/06/19 02:00 03/09/19 13:36 Duoneb *Not For Prn Use* IH Not Given Q6HRT FRANCISCO JAVIER Benzonatate 200 mg 03/06/19 06:00 03/09/19 06:09 Tessalon Perles PO 200 mg Q8HR FRANCISCO JAVIER Administration Budesonide 0.5 mg 03/06/19 08:00 03/09/19 13:04 Pulmicort IH 0.5 mg Q12HRT FRANCISCO JAVIER Administration Famotidine 20 mg 03/07/19 22:00 03/09/19 11:12 Pepcid PO 20 mg BID FRANCISCO JAVIER Administration Sodium Chloride 1,000 mls @ 42 mls/hr 03/05/19 23:00 03/06/19 03:03 Nacl 0.9% 1000 Ml IV 42 mls/hr DIRECT FRANCISCO JAVIER Administration Ceftriaxone Sodium 2 gm in 100 mls @ 200 mls/hr 03/06/19 10:00 03/09/19 11:12 Rocephin/Ns 2 Gm/100 Ml IV 200 mls/hr Q24HR FRANCISCO JAVIER Administration Protocol Metronidazole 500 mg in 100 mls @ 100 mls/hr 03/06/19 14:00 03/09/19 06:09 Flagyl 500 Mg/100 Ml IV 100 mls/hr Q8HR FRANCISCO JAVIER Administration Protocol Dextrose/Sodium Chloride 1,000 mls @ 75 mls/hr 03/10/19 00:01 D5ns 0.2% IV DIRECT FRANCISCO JAVIER Ondansetron HCl 4 mg 03/05/19 22:11 Zofran IV Q8H PRN Nausea And Vomiting Oxycodone/Acetaminophen 1 tab 03/08/19 11:30 03/09/19 11:12 Percocet 5/325 PO 1 tab Q8H PRN Administration Pain, Moderate (4-6) Sodium Chloride 10 ml 03/06/19 10:00 03/08/19 23:13 Sodium Chloride Flush Syringe 10 Ml IV 10 ml BID FRANCISCO JAVIER Administration Sodium Chloride 10 ml 03/05/19 22:11 03/08/19 06:02 Sodium Chloride Flush Syringe 10 Ml IV 10 ml PRN PRN Administration LINE FLUSH Temazepam 15 mg 03/07/19 22:04 03/09/19 00:38 Restoril PO 15 mg QHS PRN Administration Sleep
[2019-03-09] MEDS: SODIUM CHLORIDE FLUSH SYRINGE 10 ML IV SCH ×2 (16:12→22:44)
[2019-03-09] MEDS: NACL 0.9% 1000 ML 1,000 ML IV SCH (20:30)
[2019-03-10] MEDS ORDERED: [UNRECOGNIZED DRUG - OTHER] IV SCH (00:01)
[2019-03-10] MEDS ORDERED: KCL IV SCH (00:01)
[2019-03-10] MEDS: DUONEB *Not for PRN Use IH SCH ×4 (01:25→20:24)
[2019-03-10] MEDS: FLAGYL 500 MG/100 ML 500 MG/100 ML BAG IV SCH ×3 (05:47→21:18)
[2019-03-10] MEDS: TESSALON PERLES PO SCH ×3 (05:50→21:18)
--- NOTE | 2019-03-10 07:43 | Progress Note ---
Assessment and Plan --Large right hilar mass : Possible malignancy , and reactivation tuberculosis Airborne isolation, TB.workup in progress HIV negative, ID following Follow AFB smear 3, 2 AFB negative so far, follow cultures -- Pulmonary infiltrate/(Acute pneumonia); empiric antibiotics Follow cultures, TB workup --H/o active TB[ positive PPD 1986 ,treated with antiTB regimen] --Ongoing Tobacco use; smoking cessation counseling and nicotine withdrawal precatuions Plan for fiberoptic bronchosopy with biopsies today The risks, benefits, indications and alternative to bronchoscopy were discussed. Patient verbalized understanding.. His questions were answered. He wished to proceed with bronchsocopy. An informed consent is signed and has been filed as part of the medical records Subjective Date of service: 03/10/19 Interval history: Patient is seen today for: Pt is a 68-year-old male with PMHx of positive PPD skin test, treated with antituberculosis regimen for 6 months in 1986. Pt was brought by EMS for c/o chest pain and cough, He states that the cough is non productive, he has been coughing for nearly 2 months. Pt also reports sharp chest pain associated with the cough, he reports SOB, denies palpitation, denies nausea or vomiting. 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 Pt denies blood in the sputum, denies fever, denies chills, denies night sweats, he reports some weight loss for working in the sun and burning a lot of calories at work, he reports good appetite. Pt had a CT A chest that showed a large right lung mass, concerning for malignancy, pt is admitted for further evaluation and treatment. Seen and examined at bedside; 24hour events reviewed; nursing and respiratory care staff consulted; no adverse overnight events reported to me; Seen in the bronchoscopy suite Objective Vital Signs - 12hr 03/09/19 03/09/19 03/09/19 19:56 20:38 20:48 Temperature 98.1 F Pulse Rate 109 H Pulse Rate [ 109 H 106 H Posterior Bilateral Throughout] Respiratory 19 Rate Respiratory 16 16 Rate [Posterior Bilateral Throughout] Blood Pressure 111/77 O2 Sat by Pulse 97 98 Oximetry 03/09/19 03/10/19 03/10/19 23:20 00:35 01:26 Temperature 99.7 F H Pulse Rate 126 H 120 H Pulse Rate [ 103 H Posterior Bilateral Throughout] Respiratory 20 Rate Respiratory 14 Rate [Posterior Bilateral Throughout] Blood Pressure 114/68 O2 Sat by Pulse 99 Oximetry 03/10/19 03/10/19 03/10/19 01:33 03:56 04:15 Temperature 99.9 F H Pulse Rate 121 H 120 H Pulse Rate [ 103 H Posterior Bilateral Throughout] Respiratory 18 Rate Respiratory 14 Rate [Posterior Bilateral Throughout] Blood Pressure 123/79 O2 Sat by Pulse 97 Oximetry Constitutional: no acute distress, alert ENT: oropharynx moist Neck: supple, no JVD Ascultation: Bilateral: diminished breath sounds, other (Prolonged expiratory phase.) Cardiovascular: regular rate and rhythm Gastrointestinal: normoactive bowel sounds, absent bowel sounds, soft, non- tender Integumentary: normal Extremities: no cyanosis, no edema Neurologic: normal mental status, non-focal exam, pupils equal and round, CN II- XII normal Psychiatric: mood appropriate CBC and BMP: 03/10/19 08:18 03/10/19 08:18 ABG, PT/INR, D-dimer: PT/INR, D-dimer PT 14.3 Sec. (12.2-14.9) 03/05/19 18:01 INR 1.05 (0.87-1.13) 03/05/19 18:01 Abnormal lab findings: Abnormal Labs 03/05/19 03/05/19 03/05/19 18:01 18:01 18:19 WBC 16.3 H MCHC Lymph % (Auto) 12.[address] [place] % (Auto) Eos % (Auto) 7.[address] [place] # 1.0 H Eos # 1.3 H Seg Neutrophils % 72.5 H Seg Neutrophils # 11.9 H Creatinine 0.7 L Glucose POC Glucose Albumin 3.4 L 03/06/19 03/06/19 03/08/19 04:32 04:32 13:01 WBC 14.4 H MCHC 35 H Lymph % (Auto) [place] % (Auto) 7.4 H Eos % (Auto) 11.[address] [place] # 1.1 H Eos # 1.7 H Seg Neutrophils % Seg Neutrophils # 9.2 H Creatinine 0.5 L Glucose 121 H POC Glucose 114 H Albumin 0603/09/19 03/09/19 00:18 06:01 06:01 WBC 14.7 H 14.2 H MCHC 35 H Lymph % (Auto) [place] % (Auto) 9.6 H 10.9 H Eos % (Auto) 6.[address] [place] # 1.4 H 1.6 H Eos # 0.9 H 1.2 H Seg Neutrophils % Seg Neutrophils # 10.1 H 9.1 H Creatinine 0.5 L Glucose 126 H POC Glucose Albumin
[2019-03-10] MEDS: PULMICORT IH SCH ×2 (08:40→20:24)
[2019-03-10] MEDS ORDERED: NACL 0.9% 1000 ML 2,000 ML ONE (08:47)
[2019-03-10 08:54] LABS: Basophils # (Auto) 0.1 K/mm3 (0.0-0.1); Basophils % (Auto) 0.4 % (0.0-1.8); Eosinophils # (Auto) 0.5 K/mm3 (0.0-0.4); Eosinophils % (Auto) 3.5 % (0.0-4.3); Hematocrit 37.4 % (35.5-45.6); Hemoglobin 12.8 gm/dl (11.8-15.2); Lymphocytes # (Auto) 1.7 K/mm3 (1.2-5.4); Lymphocytes % (Auto) 11.8 % (13.4-35.0); Mean Corpuscular HGB Conc 34 % (32-34); Mean Corpuscular Volume 89 fl (84-94); Monocytes # (Auto) 1.3 K/mm3 (0.0-0.8); Monocytes % (Auto) 9.6 % (0.0-7.3); Platelet Count 380 K/mm3 (140-440); Red Blood Count 4.19 M/mm3 (3.65-5.03); Red Cell Distribution Width 14.3 % (13.2-15.2)
[2019-03-10] MEDS ORDERED: LIDOCAINE VISCOUS 2% ONE (09:27)
[2019-03-10] MEDS ORDERED: ADRENALINE P/F ONE (09:28)
[2019-03-10] MEDS ORDERED: XYLOCAINE 1% 20 mL ONE (09:28)
[2019-03-10] MEDS ORDERED: HURRICAINE ONE 20% TOPICAL SPRAY MM ×2 (09:29→10:38)
[2019-03-10] MEDS ORDERED: WATER FOR IRRIG STERILE IR ONE (09:31)
--- NOTE | 2019-03-10 09:41 | Progress Note ---
Assessment and Plan Cultures: 03/05/2019 blood culture: no growth thus far 03/06/2019 AFB Stain x3: negative for acid fast bacilli A/P: 68-year-old male who is originally from [place], moved here in the 1980s, also has a history of latent TB infection based on positive PPD, [facility], admitted with chronic cough and: 1) R hilar mass: concerning for malignancy v/s TB reactivation. At risk for both but likely malignancy. Continue airborne precautions. AFB smears x 3. No fever. Continue Ceftriaxone + Flagyl for possible post obstructive component. HIV negative. Fiberoptic bronchosopy performed today. The right lung, RUL take off was narrowed by tumor infiltration. No true endobronchial lesion was seen. Biopsies were obtained. Recs: Continue Ceftriaxone + Flagyl, D5- last dose today. Continue airborne precautions follow-up quanterferon gold follow-up biopsy results Dr. Ponce is quality control projectionist this weekend [phone], please call for questions. [facility] M: [phone] O:[phone] Subjective Date of service: 03/10/19 Interval history: Patient seen and examined. Reports improved breathing with decreased cough. No fevers. Objective - Exam Narrative Exam: Constitutional: Alert, cooperative. No acute distress Head, Ears, Nose: Normocephalic, atraumatic. External ears, nose normal Eyes: Conjunctivae/corneas clear. No icterus. No ptosis. Neck: Supple, no meningeal signs Oral: no thrush, no ulcers Cardiovascular: S1, S2 normal. Respiratory: AE decreased on right side, no wheeze GI: Soft, non-tender; bowel sounds normal. No peritoneal signs Musculoskeletal: No pedal edema, no cyanosis. Skin: No rash or abscess. Multiple tattoos Hem/Lymphatic: No palpable cervical or supraclavicular nodes. No lymphangitis Psych: Mood ok. Affect normal Neurological: Awake, alert, oriented. No gross abnormality - Constitutional Vitals: Vital Signs Temp Pulse Resp BP Pulse Ox 99.1 F 122 H 20 111/72 98 03/10/19 07:59 03/10/19 08:56 03/10/19 08:56 03/10/19 07:59 03/10/19 08:39 Temperature -Last 24 Hours Temperature 99.1 F Temperature 99.9 F Temperature 99.7 F Temperature 98.1 F Temperature 98.1 F - Labs CBC & Chem 7: 03/10/19 08:18 03/10/19 08:18 Labs: Abnormal lab results 03/10/19 Range/Units 08:18 WBC 14.1 H (4.5-11.0) K/mm3 Lymph % (Auto) 11.8 L (13.4-35.0) % [place] % (Auto) 9.6 H (0.0-7.3) % [place] # 1.3 H (0.0-0.8) K/mm3 Eos # 0.5 H (0.0-0.4) K/mm3 Seg Neutrophils % 74.7 H (40.0-70.0) % Seg Neutrophils # 10.5 H (1.8-7.7) K/mm3
[2019-03-10] MEDS ORDERED: DIPRIVAN 10 MG/ML IV ONE ×3 (09:54)
[2019-03-10 10:03] LABS: BUN/Creatinine Ratio 28; Blood Urea Nitrogen 14 mg/dL (9-20); Calcium 8.9 mg/dL (8.4-10.2); Hemolysis Index 11
--- NOTE | 2019-03-10 10:07 | Procedure Note ---
Date of procedure: 03/10/19 Pre-op diagnosis: Right lung mass, pleuritic chest pain, smoker, probable malignancy Post-op diagnosis: same Procedure: Fiberoptic bronchoscopy under fluorsocopy with cytology brushings, TBBx and washings Patient was on airborne isolation and brought into the bronch suite [place] precautions observed, time out was done.The right nare was anesthetized The patient was placed on continuous hemodynamic monitoring, End tidal CO2 monitoring. Anesthesia was administered by the anesthesia team, see notes for details. Bronchoscope was inserted through the right nare, without difficult. There were copious secretions the posterior pharynx with severe airway mucosal edema. Otherwise the posterior oropharynx appeared normal. The conrado was sharp, left lung was inspected. There was trachesobronchiitis, with mucosal edema. The ERMELINDA, lingula and LLL were inspected. No endobronchial lesions noted. The right lung, RUL take off was narrowed by tumor infiltration. No true endobronchial lesion was seen. Biospies were obtained. The TBBx catheter, I was able to snake it through the narrowed RUL take off to obtain more samples. There was some bleeding which resolved with cold saline saline. Cytology brushings was also obtained and bronchial washings. A total of 40cc of saline was instilled, with a return of 40ml of bloody fluid. The bronchus intermedius was also narrowed( see pictures) . The left lower lobe had tracheobronchitis with some narrowing, but no true endobronchial lesions. See pictures Patient tolerated the procedure well. On secondary survey there was no bleeding of the airway Fluoroscopy time 30s Get post procedure imaging Anesthesia: MAC Surgeon: ROBERTH HALE Estimated blood loss: none Pathology: list (Transbronchial, endobronchial biopsies, Cytology brushing, Cytology washings) Specimen disposition: to lab Condition: stable Disposition: floor
[2019-03-10] MEDS ORDERED: SUBLIMAZE ONE (10:12)
--- NOTE | 2019-03-10 10:13 | Anesthesia Consultation ---
Anesthesia Consult and Med Hx - Pulmonary Hx Smoking: Yes (Pt smokes 1 ppd.) - Central Nervous System Hx Psychiatric Problems: Yes
--- NOTE | 2019-03-10 10:29 | Anesthesia Consultation ---
Anesthesia Consult and Med Hx Date of service: 03/10/19 - Airway Anesthetic Teeth Evaluation: Poor ROM Head & Neck: Adequate Mental/Hyoid Distance: Adequate Mallampati Class: Class I Intubation Access Assessment: Good - Pulmonary Exam CTA: No (diminished entire right lobe, clear left lung leos) - Cardiac Exam Cardiac Exam: No Murmur - Pre-Operative Health Status ASA Pre-Surgery Classification: ASA3 Proposed Anesthetic Plan: MAC - Pulmonary Hx Smoking: Yes (Pt smokes 1 ppd. hx 2ppd) COPD: Yes (SOB at rest) - Central Nervous System Hx Psychiatric Problems: Yes - Other Systems Hx Substance Use: Yes (THC)
[2019-03-10] MEDS ORDERED: LIDOCAINE VISCOUS 2% PO ONE ×2 (10:32→10:34)
--- NOTE | 2019-03-10 11:46 | XRay Report ---
AP CHEST: HISTORY: Post bronchoscopy, rule out pneumothorax There is no evidence for pneumothorax. Large areas of atelectasis have developed throughout the right lung which have increased since the previous exam. The left lung appears hyperinflated but clear. Heart size is grossly normal. IMPRESSION: No evidence for pneumothorax. Large areas of atelectasis in the right lung have developed.
--- NOTE | 2019-03-10 12:15 | Progress Note ---
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 PPD 1987 ,treated with antiTB regimen] --Ongoing Tobacco use; smoking cessation counseling and nicotine patch as needed --DVT prophylaxis; Lovenox Monitor closely and adjust management as needed Follow ID and pulmonary recommendations Plan of care is reviewed with the patient and his nurse History Interval history: Patient seen and examined medical records reviewed No new Events reported by nursing staff Patient feels better, Vital signs noted Hospitalist Physical - Constitutional Vitals: Temp Pulse Resp BP Pulse Ox 98.7 F 102 H 26 H 101/68 99 03/10/19 11:10 03/10/19 11:40 03/10/19 11:40 03/10/19 11:40 03/10/19 11:40 General appearance: Present: no acute distress, cachectic, disheveled - EENT Eyes: Present: PERRL, EOM intact - Neck Neck: Present: supple, normal ROM - Respiratory Respiratory effort: normal Respiratory: bilateral: diminished, rhonchi, negative: rales, wheezing - Cardiovascular Rhythm: regular Heart Sounds: Present: S1 & S2 - Extremities Extremities: no ischemia, No edema - Abdominal General gastrointestinal: soft, non-tender, non-distended, normal bowel sounds - Integumentary Integumentary: Present: clear, warm - Psychiatric Psychiatric: appropriate mood/affect, cooperative - Neurologic Neurologic: CNII-XII intact, moves all extremities Results - Labs CBC & Chem 7: 03/10/19 08:18 03/10/19 08:18 Labs: Laboratory Last Values WBC 14.1 K/mm3 (4.5-11.0) H 03/10/19 08:18 RBC 4.19 M/mm3 (3.65-5.03) 03/10/19 08:18 Hgb 12.8 gm/dl (11.8-15.2) 03/10/19 08:18 Hct 37.4 % (35.5-45.6) 03/10/19 08:18 MCV 89 fl (84-94) 03/10/19 08:18 MCH 31 pg (28-32) 03/10/19 08:18 MCHC 34 % (32-34) 03/10/19 08:18 RDW 14.3 % (13.2-15.2) 03/10/19 08:18 Plt Count 380 K/mm3 (140-440) 03/10/19 08:18 Lymph % (Auto) 11.8 % (13.4-35.0) L 03/10/19 08:18 [place] % (Auto) 9.6 % (0.0-7.3) H 03/10/19 08:18 Eos % (Auto) 3.5 % (0.0-4.3) 03/10/19 08:18 Baso % (Auto) 0.4 % (0.0-1.8) 03/10/19 08:18 Lymph # 1.7 K/mm3 (1.2-5.4) 03/10/19 08:18 [place] # 1.3 K/mm3 (0.0-0.8) H 03/10/19 08:18 Eos # 0.5 K/mm3 (0.0-0.4) H 03/10/19 08:18 Baso # 0.1 K/mm3 (0.0-0.1) 03/10/19 08:18 Seg Neutrophils % 74.7 % (40.0-70.0) H 03/10/19 08:18 Seg Neutrophils # 10.5 K/mm3 (1.8-7.7) H 03/10/19 08:18 PT 14.3 Sec. (12.2-14.9) 03/05/19 18:01 INR 1.05 (0.87-1.13) 03/05/19 18:01 APTT 29.9 Sec. (24.2-36.6) 03/05/19 18:01 Sodium 137 mmol/L (137-145) 03/10/19 08:18 Potassium 4.5 mmol/L (3.6-5.0) 03/10/19 08:18 Chloride 96.7 mmol/L (98-107) L 03/10/19 08:18 Carbon Dioxide 21 mmol/L (22-30) L 03/10/19 08:18 24 mmol/L 03/10/19 08:18 BUN 14 mg/dL (9-20) 03/10/19 08:18 0.5 mg/dL (0.8-1.5) L 03/10/19 08:18 Estimated GFR > 60 ml/min 03/10/19 08:18 28 % 03/10/19 08:18 Glucose 113 mg/dL (75-100) H 03/10/19 08:18 POC Glucose 114 (70-105) H 03/08/19 13:01 Calcium 8.9 mg/dL (8.4-10.2) 03/10/19 08:18 0.30 mg/dL (0.1-1.2) 03/05/19 18:19 < 0.2 mg/dL (0-0.2) 03/05/19 18:19 0.1 mg/dL 03/05/19 18:19 AST 14 units/L (5-40) 03/05/19 18:19 ALT 13 units/L (7-56) 03/05/19 18:19 117 units/L (35-129) 03/05/19 18:19 < 0.010 ng/mL (0.00-0.029) 03/05/19 23:28 NT-Pro-B Natriuret Pep 113.5 pg/mL (0-900) 03/05/19 18:19 7.1 g/dL (6.3-8.2) 03/05/19 18:19 3.4 g/dL (3.9-5) L 03/05/19 18:19 0.9 % 03/05/19 18:19 16 units/L (13-60) 03/05/19 18:19 HIV 1&2 Antibody Rapid Non react (Non React) 03/07/19 Unknown Non react (Non React) 03/07/19 Unknown 03/08/19 Unknown Active Medications - Current Medications Current Medications: Generic Name Dose Route Start Last Admin Trade Name Freq PRN Reason Stop Dose Admin Acetaminophen 650 mg 03/05/19 22:11 03/07/19 05:53 Tylenol PO 650 mg Q4H PRN Administration Pain MILD(1-3)/Fever >100.5/OBO Albuterol 2.5 mg 03/08/19 06:04 Proventil IH Q4HRT PRN Shortness Of Breath Albuterol/Ipratropium 1 ampul 03/06/19 02:00 03/10/19 08:40 Duoneb *Not For Prn Use* IH 1 ampul Q6HRT FRANCISCO JAVIER Administration Benzonatate 200 mg 03/06/19 06:00 03/10/19 05:50 Tessalon Perles PO Not Given Q8HR FRANCISCO JAVIER Budesonide 0.5 mg 03/06/19 08:00 03/10/19 08:40 Pulmicort IH 0.5 mg Q12HRT FRANCISCO JAVIER Administration Famotidine 20 mg 03/07/19 22:00 03/09/19 22:44 Pepcid PO 20 mg BID FRANCISCO JAVIER Administration Sodium Chloride 1,000 mls @ 42 mls/hr 03/05/19 23:00 03/09/19 20:30 Nacl 0.9% 1000 Ml IV 42 mls/hr DIRECT FRANCISCO JAVIER Administration Ceftriaxone Sodium 2 gm in 100 mls @ 200 mls/hr 03/06/19 10:00 03/09/19 11:12 Rocephin/Ns 2 Gm/100 Ml IV 200 mls/hr Q24HR FRANCISCO JAVIER Administration Protocol Metronidazole 500 mg in 100 mls @ 100 mls/hr 03/06/19 14:00 03/10/19 05:47 Flagyl 500 Mg/100 Ml IV 100 mls/hr Q8HR FRANCISCO JAVIER Administration Protocol Dextrose/Sodium Chloride 1,000 mls @ 75 mls/hr 03/10/19 00:01 D5ns 0.2% IV DIRECT FRANCISCO JAVIER Ondansetron HCl 4 mg 03/05/19 22:11 Zofran IV Q8H PRN Nausea And Vomiting Oxycodone/Acetaminophen 1 tab 03/08/19 11:30 03/09/19 15:56 Percocet 5/325 PO 1 tab Q8H PRN Administration Pain, Moderate (4-6) Sodium Chloride 10 ml 03/06/19 10:00 03/09/19 22:44 Sodium Chloride Flush Syringe 10 Ml IV 10 ml BID FRANCISCO JAVIER Administration Sodium Chloride 10 ml 03/05/19 22:11 03/08/19 06:02 Sodium Chloride Flush Syringe 10 Ml IV 10 ml PRN PRN Administration LINE FLUSH Temazepam 15 mg 03/07/19 22:04 03/09/19 22:44 Restoril PO 15 mg QHS PRN Administration Sleep
[2019-03-10] MEDS: ROCEPHIN/NS 2 GM/100 ML 2 GM/100 ML BAG IV SCH (13:10)
[2019-03-10] MEDS: PERCOCET 5/325 PO PRN (13:11)
[2019-03-10] MEDS: PEPCID PO SCH ×2 (13:11→21:19)
[2019-03-10] MEDS: SODIUM CHLORIDE FLUSH SYRINGE 10 ML IV SCH ×2 (18:41→21:19)
[2019-03-10] MEDS: RESTORIL PO PRN (21:22)
[2019-03-11] MEDS: D5NS 0.2% 1,000 ML IV SCH ×2 (02:19→17:26)
[2019-03-11] MEDS: DUONEB *Not for PRN Use IH SCH ×5 (03:10→20:47)
[2019-03-11] MEDS: TESSALON PERLES PO SCH ×3 (05:01→21:08)
[2019-03-11] MEDS: FLAGYL 500 MG/100 ML 500 MG/100 ML BAG IV SCH ×3 (05:02→21:09)
[2019-03-11] MEDS: PERCOCET 5/325 PO PRN ×4 (05:06→23:45)
[2019-03-11] MEDS ORDERED: LOPRESSOR IV NR (06:46)
[2019-03-11] MEDS: PULMICORT IH SCH ×2 (09:02→20:47)
[2019-03-11] MEDS: ROCEPHIN/NS 2 GM/100 ML 2 GM/100 ML BAG IV SCH (12:37)
[2019-03-11] MEDS: SODIUM CHLORIDE FLUSH SYRINGE 10 ML IV SCH ×2 (12:38→21:10)
[2019-03-11] MEDS: PEPCID PO SCH ×2 (12:38→21:09)
--- NOTE | 2019-03-11 12:43 | Progress Note ---
Assessment and Plan Assessment and plan: -- Pulmonary infiltrate/(Acute pneumonia); empiric antibiotics Rocephin and Flagyl Follow cultures, TB workup, ID following --Large right hilar mass : post bronchoscopy and biopsy Follow histopathology, Possible malignancy , and reactivation tuberculosis Airborne isolation, TB.workup in progress HIV negative, ID following Follow AFB smear 3 negative so far, follow cultures Possible lung mass biopsy tomorrow . 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 ,treated with antiTB regimen] --Ongoing Tobacco use; smoking cessation counseling and nicotine patch as needed --DVT prophylaxis; Lovenox Monitor closely and adjust management as needed Follow ID and pulmonary recommendations Follow histopathology of biopsy, follow pulmonary ID evaluation and recommendations Plan of care is reviewed with the patient and his nurse History Interval history: Patient seen and examined medical records reviewed Patient feels and looks better Denies chest pain or palpitations Denies shortness of breath or cough Denies headache or dizziness Vital signs reviewed Hospitalist Physical - Constitutional Vitals: Temp Pulse Resp BP Pulse Ox 98.1 F 79 18 147/79 99 03/11/19 11:40 03/11/19 11:40 03/11/19 11:40 03/11/19 11:40 03/11/19 11:40 General appearance: Present: no acute distress, cachectic, disheveled - EENT Eyes: Present: PERRL, EOM intact - Neck Neck: Present: supple, normal ROM - Respiratory Respiratory effort: normal Respiratory: bilateral: diminished, rhonchi, negative: rales, wheezing - Cardiovascular Rhythm: regular Heart Sounds: Present: S1 & S2 - Extremities Extremities: no ischemia, No edema - Abdominal General gastrointestinal: soft, non-tender, non-distended, normal bowel sounds - Integumentary Integumentary: Present: clear, warm - Psychiatric Psychiatric: appropriate mood/affect, cooperative - Neurologic Neurologic: moves all extremities Results - Labs CBC & Chem 7: 03/10/19 08:18 03/10/19 08:18 Labs: Laboratory Last Values WBC 14.1 K/mm3 (4.5-11.0) H 03/10/19 08:18 RBC 4.19 M/mm3 (3.65-5.03) 03/10/19 08:18 Hgb 12.8 gm/dl (11.8-15.2) 03/10/19 08:18 Hct 37.4 % (35.5-45.6) 03/10/19 08:18 MCV 89 fl (84-94) 03/10/19 08:18 MCH 31 pg (28-32) 03/10/19 08:18 MCHC 34 % (32-34) 03/10/19 08:18 RDW 14.3 % (13.2-15.2) 03/10/19 08:18 Plt Count 380 K/mm3 (140-440) 03/10/19 08:18 Lymph % (Auto) 11.8 % (13.4-35.0) L 03/10/19 08:18 [place] % (Auto) 9.6 % (0.0-7.3) H 03/10/19 08:18 Eos % (Auto) 3.5 % (0.0-4.3) 03/10/19 08:18 Baso % (Auto) 0.4 % (0.0-1.8) 03/10/19 08:18 Lymph # 1.7 K/mm3 (1.2-5.4) 03/10/19 08:18 [place] # 1.3 K/mm3 (0.0-0.8) H 03/10/19 08:18 Eos # 0.5 K/mm3 (0.0-0.4) H 03/10/19 08:18 Baso # 0.1 K/mm3 (0.0-0.1) 03/10/19 08:18 Seg Neutrophils % 74.7 % (40.0-70.0) H 03/10/19 08:18 Seg Neutrophils # 10.5 K/mm3 (1.8-7.7) H 03/10/19 08:18 PT 14.3 Sec. (12.2-14.9) 03/05/19 18:01 INR 1.05 (0.87-1.13) 03/05/19 18:01 APTT 29.9 Sec. (24.2-36.6) 03/05/19 18:01 Sodium 137 mmol/L (137-145) 03/10/19 08:18 Potassium 4.5 mmol/L (3.6-5.0) 03/10/19 08:18 Chloride 96.7 mmol/L (98-107) L 03/10/19 08:18 Carbon Dioxide 21 mmol/L (22-30) L 03/10/19 08:18 24 mmol/L 03/10/19 08:18 BUN 14 mg/dL (9-20) 03/10/19 08:18 0.5 mg/dL (0.8-1.5) L 03/10/19 08:18 Estimated GFR > 60 ml/min 03/10/19 08:18 28 % 03/10/19 08:18 Glucose 113 mg/dL (75-100) H 03/10/19 08:18 POC Glucose 114 (70-105) H 03/08/19 13:01 Calcium 8.9 mg/dL (8.4-10.2) 03/10/19 08:18 0.30 mg/dL (0.1-1.2) 03/05/19 18:19 < 0.2 mg/dL (0-0.2) 03/05/19 18:19 0.1 mg/dL 03/05/19 18:19 AST 14 units/L (5-40) 03/05/19 18:19 ALT 13 units/L (7-56) 03/05/19 18:19 117 units/L (35-129) 03/05/19 18:19 < 0.010 ng/mL (0.00-0.029) 03/05/19 23:28 NT-Pro-B Natriuret Pep 113.5 pg/mL (0-900) 03/05/19 18:19 7.1 g/dL (6.3-8.2) 03/05/19 18:19 3.4 g/dL (3.9-5) L 03/05/19 18:19 0.9 % 03/05/19 18:19 16 units/L (13-60) 03/05/19 18:19 HIV 1&2 Antibody Rapid Non react (Non React) 03/07/19 Unknown Non react (Non React) 03/07/19 Unknown 03/08/19 Unknown Active Medications - Current Medications Current Medications: Generic Name Dose Route Start Last Admin Trade Name Freq PRN Reason Stop Dose Admin Acetaminophen 650 mg 03/05/19 22:11 03/07/19 05:53 Tylenol PO 650 mg Q4H PRN Administration Pain MILD(1-3)/Fever >100.5/BOO Albuterol 2.5 mg 03/08/19 06:04 Proventil IH Q4HRT PRN Shortness Of Breath Albuterol/Ipratropium 1 ampul 03/06/19 02:00 03/11/19 09:03 Duoneb *Not For Prn Use* IH 1 ampul Q6HRT FRANCISCO JAVIER Administration Benzonatate 200 mg 03/06/19 06:00 03/11/19 05:01 Tessalon Perles PO 200 mg Q8HR FRANCISCO JAVIER Administration Budesonide 0.5 mg 03/06/19 08:00 03/11/19 09:02 Pulmicort IH 0.5 mg Q12HRT FRANCISCO JAVIER Administration Famotidine 20 mg 03/07/19 22:00 03/11/19 12:38 Pepcid PO 20 mg BID FRANCISCO JAVIER Administration Ceftriaxone Sodium 2 gm in 100 mls @ 200 mls/hr 03/06/19 10:00 03/11/19 12:37 Rocephin/Ns 2 Gm/100 Ml IV 200 mls/hr Q24HR FRANCISCO JAVIER Administration Protocol Metronidazole 500 mg in 100 mls @ 100 mls/hr 03/06/19 14:00 03/11/19 05:02 Flagyl 500 Mg/100 Ml IV 100 mls/hr Q8HR FRANCISCO JAVIER Administration Protocol Dextrose/Sodium Chloride 1,000 mls @ 75 mls/hr 03/10/19 00:01 03/11/19 02:19 D5ns 0.2% IV 75 mls/hr DIRECT FRANCISCO JAVIER Administration Ondansetron HCl 4 mg 03/05/19 22:11 Zofran IV Q8H PRN Nausea And Vomiting Oxycodone/Acetaminophen 1 tab 03/10/19 12:53 03/11/19 12:38 Percocet 5/325 PO 1 tab Q6H PRN Administration Pain, Moderate (4-6) Sodium Chloride 10 ml 03/06/19 10:00 03/11/19 12:38 Sodium Chloride Flush Syringe 10 Ml IV 10 ml BID FRANCISCO JAVIER Administration Sodium Chloride 10 ml 03/05/19 22:11 03/08/19 06:02 Sodium Chloride Flush Syringe 10 Ml IV 10 ml PRN PRN Administration LINE FLUSH Temazepam 15 mg 03/07/19 22:04 03/10/19 21:22 Restoril PO 15 mg QHS PRN Administration Sleep Nutrition/Malnutrition Assess - Dietary Evaluation Nutrition/Malnutrition Findings: Nutrition Notes Start: 03/10/19 16:01 Freq: Status: Active Protocol: Document 03/10/19 16:01 RM (Rec: 03/10/19 16:09 RM [id number]) Nutrition Notes Need for Assessment generated from: LOS Initial or Follow up Assessment Current Diagnosis COPD Other Pertinent Diagnosis Pneu, CP Current Diet NPO Labs/Tests Reviewed Pertinent Medications Reviewed Height 5 ft 6 in Weight 62.3 kg [place] Body Weight (kg) 64.54 BMI 22.1 Subjective/Other Information Screened for LOS. Pt NPO for brochoscopy w/ biopsy. Tech unsure how much pt has been eating. Recorded PO intake 41% X 6 meals. Percent of energy/protein needs met: 50%/55% (before NPO) Burn Absent Trauma Absent #1 Nutrition Diagnosis Inadequate oral intake Etiology COPD, CP, Pneu As Evidenced by Signs and Symptoms PO intake 41% X 6 meals Is patient on ventilator? No Is Patient Ambulatory and/or Out of Bed Yes REE-([facility]-ambulatory/OOB) [ [id number] [id number]] Calculation Used for Recommendations [facility] Additional Notes Protein Needs: 62-75g (1-1.2g/ kg) Fluid Needs: 1 ml/kcal Nutrition Intervention Change Diet Order: Advance diet when medically able Add Supplement/Snack (indicate name/kcal Ensure Enlive 1 daily once /protein ) diet advanced Provides kCal: 350 Provides Protein (gm) 20 Goal #1 Diet advancemnt Anticipated Discharge Needs: Unable to determine at this time Follow-Up By: 03/15/19 Additional Comments Follow for diet advancement,PO and ONS intakes
--- NOTE | 2019-03-11 13:44 | Progress Note ---
Assessment and Plan Patient awake complaining chest pain.Requesting pain medications all the time. Patient is on 3 litres O2.. O2 Saturation 96%. No acute respiratory distress. Sputum for AFB x 3 reported smar negative. Patient undergone bronchoscopy. Bronchoscopy specimenn results pending. - Patient Problems (1) Shortness of breath Current Visit: Yes Status: Acute Plan to address problem: O2 3 litres via nasal canula. Albuterol/atrovent aerosol treatments q 6 hours. Continue ceftrioxone and metronidazole. Continue S/C Lovenox. Continue famotidine. (2) Mass of right lung Current Visit: Yes Status: Acute Plan to address problem: Patient undergone bronchoscopy. Bronchoscopy specimenn results pending. Subjective Date of service: 03/11/19 Interval history: Patient awake complaining chest pain.Requesting pain medications all the time. Patient is on 3 litres O2.. O2 Saturation 96%. No acute respiratory distress. Sputum for AFB x 3 reported smar negative. Patient undergone bronchoscopy. Bronchoscopy specimenn results pending. Objective Vital Signs - 12hr 03/11/19 03/11/19 03/11/19 05:40 07:01 07:44 Temperature 99.1 F 98.4 F 98.4 F Pulse Rate 107 H Pulse Rate [ Posterior Bilateral Throughout] Respiratory 22 18 Rate Respiratory Rate [Posterior Bilateral Throughout] Blood Pressure 141/93 105/67 Blood Pressure [Left] O2 Sat by Pulse 96 Oximetry 03/11/19 03/11/19 03/11/19 09:15 09:30 10:00 Temperature Pulse Rate Pulse Rate [ 107 H 107 H Posterior Bilateral Throughout] Respiratory Rate Respiratory 18 18 Rate [Posterior Bilateral Throughout] Blood Pressure Blood Pressure [Left] O2 Sat by Pulse 96 Oximetry 03/11/19 11:40 Temperature 98.1 F Pulse Rate 79 Pulse Rate [ Posterior Bilateral Throughout] Respiratory 18 Rate Respiratory Rate [Posterior Bilateral Throughout] Blood Pressure Blood Pressure 147/79 [Left] O2 Sat by Pulse 99 Oximetry Constitutional: no acute distress, alert ENT: oropharynx moist Neck: supple, no JVD Ascultation: Bilateral: diminished breath sounds, other (Prolonged expiratory phase.) Cardiovascular: regular rate and rhythm Gastrointestinal: normoactive bowel sounds, absent bowel sounds, soft, non- tender Integumentary: normal Extremities: no cyanosis, no edema Neurologic: normal mental status, non-focal exam, pupils equal and round, CN II- XII normal Psychiatric: mood appropriate CBC and BMP: 03/10/19 08:18 03/10/19 08:18 ABG, PT/INR, D-dimer: PT/INR, D-dimer PT 14.3 Sec. (12.2-14.9) 03/05/19 18:01 INR 1.05 (0.87-1.13) 03/05/19 18:01 Abnormal lab findings: Abnormal Labs 03/05/19 03/05/19 03/05/19 18:01 18:01 18:19 WBC 16.3 H MCHC Lymph % (Auto) 12.7 L [place] % (Auto) Eos % (Auto) 7.9 H [place] # 1.0 H Eos # 1.3 H Seg Neutrophils % 72.5 H Seg Neutrophils # 11.9 H Chloride Carbon Dioxide Creatinine 0.7 L Glucose POC Glucose Albumin 3.4 L 03/06/19 03/06/19 03/08/19 04:32 04:32 13:01 WBC 14.4 H MCHC 35 H Lymph % (Auto) [place] % (Auto) 7.4 H Eos % (Auto) 11.8 H [place] # 1.1 H Eos # 1.7 H Seg Neutrophils % Seg Neutrophils # 9.2 H Chloride Carbon Dioxide Creatinine 0.5 L Glucose 121 H POC Glucose 114 H Albumin 03/09/19 03/09/19 03/09/19 00:18 06:01 06:01 WBC 14.7 H 14.2 H MCHC 35 H Lymph % (Auto) [place] % (Auto) 9.6 H 10.9 H Eos % (Auto) 6.1 H 8.2 H [place] # 1.4 H 1.6 H Eos # 0.9 H 1.2 H Seg Neutrophils % Seg Neutrophils # 10.1 H 9.1 H Chloride Carbon Dioxide Creatinine 0.5 L Glucose 126 H POC Glucose Albumin 03/10/19 03/10/19 08:18 08:18 WBC 14.1 H MCHC Lymph % (Auto) 11.8 L [place] % (Auto) 9.6 H Eos % (Auto) [place] # 1.3 H Eos # 0.5 H Seg Neutrophils % 74.7 H Seg Neutrophils # 10.5 H Chloride 96.7 L Carbon Dioxide 21 L Creatinine 0.5 L Glucose 113 H POC Glucose Albumin Chest x-ray: report reviewed (Reported pneumothorax post bronchoscopy.), image reviewed
[2019-03-11] MEDS: RESTORIL PO PRN (21:08)
[2019-03-11] MEDS: TYLENOL PO PRN (21:09)
[2019-03-12] MEDS: TESSALON PERLES PO SCH ×3 (05:12→20:14)
[2019-03-12] MEDS: FLAGYL 500 MG/100 ML 500 MG/100 ML BAG IV SCH ×3 (05:12→20:14)
[2019-03-12] MEDS: PULMICORT IH SCH ×2 (08:22→21:07)
[2019-03-12] MEDS: DUONEB *Not for PRN Use IH SCH ×3 (08:22→21:06)
[2019-03-12] MEDS: PEPCID PO SCH ×2 (10:55→20:15)
[2019-03-12] MEDS: ROCEPHIN/NS 2 GM/100 ML 2 GM/100 ML BAG IV SCH (10:55)
[2019-03-12] MEDS: SODIUM CHLORIDE FLUSH SYRINGE 10 ML IV SCH (11:31)
[2019-03-12] MEDS: PERCOCET 5/325 PO PRN ×2 (11:31→20:30)
--- NOTE | 2019-03-12 13:38 | Progress Note ---
Assessment and Plan Assessment and plan: -- Pulmonary infiltrate/(Acute pneumonia); empiric antibiotics Rocephin and Flagyl Follow cultures, TB workup, ID following --Large right hilar mass : post bronchoscopy and biopsy Follow histopathology, Possible malignancy , and reactivation tuberculosis Airborne isolation, TB.workup in progress HIV negative, ID following Follow AFB smear 3 negative so far, follow cultures Possible lung mass biopsy tomorrow . 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 ,treated with antiTB regimen] --Ongoing Tobacco use; smoking cessation counseling and nicotine patch as needed --DVT prophylaxis; Lovenox Monitor closely and adjust management as needed Follow ID and pulmonary recommendations Follow histopathology of biopsy, follow pulmonary ID evaluation and recommendations Plan of care is reviewed with the patient and his nurse History Interval history: Patient Feels better no new complaints Vital signs noted Remains in airborne isolation per ID Hospitalist Physical - Constitutional Vitals: Temp Pulse Resp BP Pulse Ox 98.4 F 116 H 18 123/84 100 03/12/19 04:17 03/12/19 08:32 03/12/19 08:32 03/12/19 08:22 03/12/19 08:23 General appearance: Present: no acute distress, cachectic, disheveled - EENT Eyes: Present: PERRL, EOM intact - Neck Neck: Present: supple, normal ROM - Respiratory Respiratory effort: normal Respiratory: bilateral: diminished, rhonchi, negative: rales, wheezing - Cardiovascular Rhythm: regular Heart Sounds: Present: S1 & S2 - Extremities Extremities: no ischemia, No edema - Abdominal General gastrointestinal: soft, non-tender, non-distended, normal bowel sounds - Integumentary Integumentary: Present: clear, warm - Psychiatric Psychiatric: appropriate mood/affect, cooperative - Neurologic Neurologic: CNII-XII intact, moves all extremities Results - Labs CBC & Chem 7: 03/10/19 08:18 03/10/19 08:18 Labs: Laboratory Last Values WBC 14.1 K/mm3 (4.5-11.0) H 03/10/19 08:18 RBC 4.19 M/mm3 (3.65-5.03) 03/10/19 08:18 Hgb 12.8 gm/dl (11.8-15.2) 03/10/19 08:18 Hct 37.4 % (35.5-45.6) 03/10/19 08:18 MCV 89 fl (84-94) 03/10/19 08:18 MCH 31 pg (28-32) 03/10/19 08:18 MCHC 34 % (32-34) 03/10/19 08:18 RDW 14.3 % (13.2-15.2) 03/10/19 08:18 Plt Count 380 K/mm3 (140-440) 03/10/19 08:18 Lymph % (Auto) 11.8 % (13.4-35.0) L 03/10/19 08:18 Sully % (Auto) 9.6 % (0.0-7.3) H 03/10/19 08:18 Eos % (Auto) 3.5 % (0.0-4.3) 03/10/19 08:18 Baso % (Auto) 0.4 % (0.0-1.8) 03/10/19 08:18 Lymph # 1.7 K/mm3 (1.2-5.4) 03/10/19 08:18 Sully # 1.3 K/mm3 (0.0-0.8) H 03/10/19 08:18 Eos # 0.5 K/mm3 (0.0-0.4) H 03/10/19 08:18 Baso # 0.1 K/mm3 (0.0-0.1) 03/10/19 08:18 Seg Neutrophils % 74.7 % (40.0-70.0) H 03/10/19 08:18 Seg Neutrophils # 10.5 K/mm3 (1.8-7.7) H 03/10/19 08:18 PT 14.3 Sec. (12.2-14.9) 03/05/19 18:01 INR 1.05 (0.87-1.13) 03/05/19 18:01 APTT 29.9 Sec. (24.2-36.6) 03/05/19 18:01 Sodium 137 mmol/L (137-145) 03/10/19 08:18 Potassium 4.5 mmol/L (3.6-5.0) 03/10/19 08:18 Chloride 96.7 mmol/L (98-107) L 03/10/19 08:18 Carbon Dioxide 21 mmol/L (22-30) L 03/10/19 08:18 24 mmol/L 03/10/19 08:18 BUN 14 mg/dL (9-20) 03/10/19 08:18 0.5 mg/dL (0.8-1.5) L 03/10/19 08:18 Estimated GFR > 60 ml/min 03/10/19 08:18 28 % 03/10/19 08:18 Glucose 113 mg/dL (75-100) H 03/10/19 08:18 POC Glucose 114 (70-105) H 03/08/19 13:01 Calcium 8.9 mg/dL (8.4-10.2) 03/10/19 08:18 0.30 mg/dL (0.1-1.2) 03/05/19 18:19 < 0.2 mg/dL (0-0.2) 03/05/19 18:19 0.1 mg/dL 03/05/19 18:19 AST 14 units/L (5-40) 03/05/19 18:19 ALT 13 units/L (7-56) 03/05/19 18:19 117 units/L (35-129) 03/05/19 18:19 < 0.010 ng/mL (0.00-0.029) 03/05/19 23:28 NT-Pro-B Natriuret Pep 113.5 pg/mL (0-900) 03/05/19 18:19 7.1 g/dL (6.3-8.2) 03/05/19 18:19 3.4 g/dL (3.9-5) L 03/05/19 18:19 0.9 % 03/05/19 18:19 16 units/L (13-60) 03/05/19 18:19 HIV 1&2 Antibody Rapid Non react (Non React) 03/07/19 Unknown Non react (Non React) 03/07/19 Unknown 03/08/19 Unknown Active Medications - Current Medications Current Medications: Generic Name Dose Route Start Last Admin Trade Name Freq PRN Reason Stop Dose Admin Acetaminophen 650 mg 03/05/19 22:11 03/11/19 21:09 Tylenol PO 650 mg Q4H PRN Administration Pain MILD(1-3)/Fever >100.5/BOO Albuterol 2.5 mg 03/08/19 06:04 Proventil IH Q4HRT PRN Shortness Of Breath Albuterol/Ipratropium 1 ampul 03/12/19 08:00 03/12/19 08:22 Duoneb *Not For Prn Use* IH 1 ampul TIDRT FRANCISCO JAVIER Administration Benzonatate 200 mg 03/06/19 06:00 03/12/19 05:12 Tessalon Perles PO 200 mg Q8HR FRANCISCO JAVIER Administration Budesonide 0.5 mg 03/06/19 08:00 03/12/19 08:22 Pulmicort IH 0.5 mg Q12HRT FRANCISCO JAVIER Administration Famotidine 20 mg 03/07/19 22:00 03/12/19 10:55 Pepcid PO 20 mg BID FRANCISCO JAVIER Administration Ceftriaxone Sodium 2 gm in 100 mls @ 200 mls/hr 03/06/19 10:00 03/12/19 10:55 Rocephin/Ns 2 Gm/100 Ml IV 200 mls/hr Q24HR FRANCISCO JAVIER Administration Protocol Metronidazole 500 mg in 100 mls @ 100 mls/hr 03/06/19 14:00 03/12/19 05:12 Flagyl 500 Mg/100 Ml IV 100 mls/hr Q8HR FRANCISCO JAVIER Administration Protocol Dextrose/Sodium Chloride 1,000 mls @ 75 mls/hr 03/10/19 00:01 03/11/19 17:26 D5ns 0.2% IV 75 mls/hr DIRECT FRANCISCO JAVIER Administration Ondansetron HCl 4 mg 03/05/19 22:11 Zofran IV Q8H PRN Nausea And Vomiting Oxycodone/Acetaminophen 1 tab 03/10/19 12:53 03/12/19 11:31 Percocet 5/325 PO 1 tab Q6H PRN Administration Pain, Moderate (4-6) Sodium Chloride 10 ml 03/06/19 10:00 03/12/19 11:31 Sodium Chloride Flush Syringe 10 Ml IV 10 ml BID FRANCISCO JAVIER Administration Sodium Chloride 10 ml 03/05/19 22:11 03/08/19 06:02 Sodium Chloride Flush Syringe 10 Ml IV 10 ml PRN PRN Administration LINE FLUSH Temazepam 15 mg 03/07/19 22:04 03/11/19 21:08 Restoril PO 15 mg QHS PRN Administration Sleep Nutrition/Malnutrition Assess - Dietary Evaluation Nutrition/Malnutrition Findings: Nutrition Notes Start: 03/10/19 16:01 Freq: Status: Active Protocol: Document 03/10/19 16:01 RM (Rec: 03/10/19 16:09 RM [email or web address]) Nutrition Notes Need for Assessment generated from: LOS Initial or Follow up Assessment Current Diagnosis COPD Other Pertinent Diagnosis Pneu, CP Current Diet NPO Labs/Tests Reviewed Pertinent Medications Reviewed Height 5 ft 6 in Weight 62.3 kg [place] Body Weight (kg) 64.54 BMI 22.1 Subjective/Other Information Screened for LOS. Pt NPO for brochoscopy w/ biopsy. Tech unsure how much pt has been eating. Recorded PO intake 41% X 6 meals. Percent of energy/protein needs met: 50%/55% (before NPO) Burn Absent Trauma Absent #1 Nutrition Diagnosis Inadequate oral intake Etiology COPD, CP, Pneu As Evidenced by Signs and Symptoms PO intake 41% X 6 meals Is patient on ventilator? No Is Patient Ambulatory and/or Out of Bed Yes REE-([facility] or-ambulatory/OOB) [ 1749.475 NUTR.MSJOOB] Calculation Used for Recommendations [facility] or Additional Notes Protein Needs: 62-75g (1-1.2g/ kg) Fluid Needs: 1 ml/kcal Nutrition Intervention Change Diet Order: Advance diet when medically able Add Supplement/Snack (indicate name/kcal Ensure Enlive 1 daily once /protein ) diet advanced Provides kCal: 350 Provides Protein (gm) 20 Goal #1 Diet advancemnt Anticipated Discharge Needs: Unable to determine at this time Follow-Up By: 03/15/19 Additional Comments Follow for diet advancement,PO and ONS intakes
[2019-03-12] MEDS: RESTORIL PO PRN (20:15)
--- NOTE | 2019-03-12 21:44 | Progress Note ---
Assessment and Plan Patient awake. Still complaining chest pain.Requesting pain medications all the time. Patient is on 2 litres O2.. O2 Saturation 97%. No acute respiratory distress. Sputum for AFB x 3 reported smar negative. Patient undergone bronchoscopy. Bronchoscopy specimenn results pending. - Patient Problems (1) Shortness of breath Current Visit: Yes Status: Acute Plan to address problem: O2 2 litres via nasal canula. Albuterol/atrovent aerosol treatments q 6 hours. Continue ceftrioxone and metronidazole. Continue S/C Lovenox. Continue famotidine. (2) Mass of right lung Current Visit: Yes Status: Acute Plan to address problem: Patient undergone bronchoscopy. Bronchoscopy specimenn results pending. Subjective Date of service: 03/12/19 Interval history: Patient awake. Still complaining chest pain.Requesting pain medications all the time. Patient is on 2 litres O2. O2 Saturation 97%. No acute respiratory distress. Sputum for AFB x 3 reported smar negative. Patient undergone bronchoscopy. Bronchoscopy specimenn results pending. Objective Vital Signs - 12hr 03/12/19 03/12/19 03/12/19 10:00 19:27 21:07 Temperature 98.0 F Pulse Rate 109 H 119 H Pulse Rate [ 96 H Posterior Bilateral Throughout] Respiratory 18 Rate Respiratory 20 Rate [Posterior Bilateral Throughout] Blood Pressure 113/77 O2 Sat by Pulse 98 Oximetry 03/12/19 21:08 Temperature Pulse Rate Pulse Rate [ Posterior Bilateral Throughout] Respiratory Rate Respiratory Rate [Posterior Bilateral Throughout] Blood Pressure O2 Sat by Pulse 97 Oximetry Constitutional: no acute distress, alert ENT: oropharynx moist Neck: supple, no JVD Ascultation: Bilateral: diminished breath sounds, other (Prolonged expiratory phase.) Cardiovascular: regular rate and rhythm Gastrointestinal: normoactive bowel sounds, absent bowel sounds, soft, non- tender Integumentary: normal Extremities: no cyanosis, no edema Neurologic: normal mental status, non-focal exam, pupils equal and round, CN II- XII normal Psychiatric: mood appropriate CBC and BMP: 03/10/19 08:18 03/10/19 08:18 ABG, PT/INR, D-dimer: PT/INR, D-dimer PT 14.3 Sec. (12.2-14.9) 03/05/19 18:01 INR 1.05 (0.87-1.13) 03/05/19 18:01 Abnormal lab findings: Abnormal Labs 03/05/19 03/05/19 03/05/19 18:01 18:01 18:19 WBC 16.3 H MCHC Lymph % (Auto) 12.7 L Kerr % (Auto) Eos % (Auto) 7.9 H Kerr # 1.0 H Eos # 1.3 H Seg Neutrophils % 72.5 H Seg Neutrophils # 11.9 H Chloride Carbon Dioxide Creatinine 0.7 L Glucose POC Glucose Albumin 3.4 L 03/06/19 03/06/19 03/08/19 04:32 04:32 13:01 WBC 14.4 H MCHC 35 H Lymph % (Auto) Kerr % (Auto) 7.4 H Eos % (Auto) 11.8 H Kerr # 1.1 H Eos # 1.7 H Seg Neutrophils % Seg Neutrophils # 9.2 H Chloride Carbon Dioxide Creatinine 0.5 L Glucose 121 H POC Glucose 114 H Albumin 03/09/19 03/09/19 03/09/19 00:18 06:01 06:01 WBC 14.7 H 14.2 H MCHC 35 H Lymph % (Auto) Kerr % (Auto) 9.6 H 10.9 H Eos % (Auto) 6.1 H 8.2 H Kerr # 1.4 H 1.6 H Eos # 0.9 H 1.2 H Seg Neutrophils % Seg Neutrophils # 10.1 H 9.1 H Chloride Carbon Dioxide Creatinine 0.5 L Glucose 126 H POC Glucose Albumin 03/10/19 03/10/19 08:18 08:18 WBC 14.1 H MCHC Lymph % (Auto) 11.8 L Kerr % (Auto) 9.6 H Eos % (Auto) Kerr # 1.3 H Eos # 0.5 H Seg Neutrophils % 74.7 H Seg Neutrophils # 10.5 H Chloride 96.7 L Carbon Dioxide 21 L Creatinine 0.5 L Glucose 113 H POC Glucose Albumin
[2019-03-13] MEDS: FLAGYL 500 MG/100 ML 500 MG/100 ML BAG IV SCH ×2 (06:16→06:18)
[2019-03-13] MEDS: TESSALON PERLES PO SCH ×4 (06:17→22:04)
[2019-03-13] MEDS: PEPCID PO SCH ×3 (06:18→22:04)
[2019-03-13] MEDS: SODIUM CHLORIDE FLUSH SYRINGE 10 ML IV SCH ×3 (06:18→22:05)
[2019-03-13] MEDS: PERCOCET 5/325 PO PRN ×3 (06:18→20:51)
[2019-03-13] MEDS: PULMICORT IH SCH ×2 (08:00→19:16)
[2019-03-13] MEDS: DUONEB *Not for PRN Use IH SCH ×3 (08:00→19:16)
--- NOTE | 2019-03-13 09:28 | Progress Note ---
Assessment and Plan Cultures: 03/05/2019 blood culture: no growth thus far 03/06/2019 AFB Stain x3: negative for acid fast bacilli A/P: 68-year-old male who is originally from [place], moved here in the , also has a history of latent TB infection based on positive PPD, [facility], admitted with chronic cough and: 1) R hilar mass: concerning for malignancy v/s TB reactivation. At risk for both but likely malignancy. Discontinue Airbourne isolation. AFB smears x 3 negative. No fever. HIV negative. Fiberoptic bronchosopy performed. The right lung, RUL take off was narrowed by tumor infiltration. No true endobronchial lesion was seen. Biopsies were obtained. 2) SVT -multiple bouts of SVT this morning which was converted to SR/ST with IV adenosine. Recs: When clinically stable, Ok to discharge from ID standpoint AFB stain X 3 negative, Quantiferon goal not useful in someone with previously positive PPD Discontinue airbourne isolation Follow up biopsy results Antibiotic therapy completed, no discharge abx needed d/w Dr. Shawn Reyes, [employer] [facility] M: [phone] O:[phone] Subjective Date of service: 03/13/19 Interval history: Patient seen and examined. Code Med for SVT. Dr. Pelletier at bedside. Objective - Exam Narrative Exam: Constitutional: Code MED today for SVT Head, Ears, Nose: Normocephalic, atraumatic. External ears, nose normal Eyes: Conjunctivae/corneas clear. No icterus. No ptosis. Neck: Supple, no meningeal signs Oral: no thrush, no ulcers Cardiovascular: SVT converted to SR/ST with adenosine. Respiratory: unable to access GI: unable to access Musculoskeletal: No pedal edema, no cyanosis. Skin: No rash or abscess. Multiple tattoos Hem/Lymphatic: unable to access Psych: unable to access Neurological: Code MEd at bedside, SVT - Constitutional Vitals: Vital Signs Temp Pulse Resp BP Pulse Ox 98.0 F 112 H 18 107/64 98 03/13/19 03:35 03/13/19 06:56 03/13/19 03:35 03/13/19 03:35 03/13/19 03:35 Temperature -Last 24 Hours Temperature 98.0 F Temperature 98 F Temperature 98.0 F - Labs CBC & Chem 7: 03/10/19 08:18 03/10/19 08:18
--- NOTE | 2019-03-13 10:40 | Progress Note ---
Assessment and Plan Assessment and plan: 68-year-old male with PMHx of positive PPD skin test, treated with antituberculosis regimen for 6 months in 1986. Pt was admitted through ED with chest pain and cough, lot of calories at work, he reports good appetite. 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 ID cleared for DC. --SVT; heart rate is ranging between 170s and 180s, status post IV adenosine 6 mg converted to sinus, now heart rate 100 -110 Patient remained asymptomatic throughout the event EKG, echocardiogram for LV function, cardiology following -- Pulmonary infiltrate/(Acute pneumonia); empiric antibiotics Rocephin and Flagyl Negative cultures, AFB 4 negative, ID recommended DC isolation, cleared for discharge --Large right hilar mass : post bronchoscopy and biopsy Follow histopathology, Possible malignancy , and reactivation tuberculosis HIV negative, pulmonary following --H/o latent TB[ positive PPD 1986 ,treated with antiTB regimen] --Ongoing Tobacco use; smoking cessation counseling and nicotine patch as needed --DVT prophylaxis; Lovenox Monitor closely and adjust management as needed Kay cleared for discharge Follow histopathology of lung mass biopsy, Follow cardiology evaluation and recommendations Plan of care is reviewed with the patient and his nurse Disposition: follow lung biopsy report, cardio rec,possible dc in 1-2 days History Interval history: It was called as patient was in SVT with heart rate between 170; 180s When I evaluated the patient patient did not have any chest pain or shortness of breath Alert awake oriented 3 Vital signs reviewed,HR 180s Hospitalist Physical - Constitutional Vitals: Temp Pulse Resp BP Pulse Ox 97.9 F 89 18 107/79 96 03/13/19 08:17 03/13/19 08:17 03/13/19 08:17 03/13/19 08:17 03/13/19 08:17 General appearance: Present: no acute distress, cachectic, disheveled - EENT Eyes: Present: PERRL, EOM intact - Neck Neck: Present: supple, normal ROM - Respiratory Respiratory effort: normal Respiratory: bilateral: diminished, rhonchi, negative: rales, wheezing - Cardiovascular Rhythm: regular Heart Sounds: Present: S1 & S2 - Extremities Extremities: no ischemia, No edema - Abdominal General gastrointestinal: soft, non-tender, non-distended - Integumentary Integumentary: Present: clear, warm - Psychiatric Psychiatric: appropriate mood/affect, cooperative - Neurologic Neurologic: moves all extremities Results - Labs CBC & Chem 7: 03/13/19 22:57 03/13/19 22:57 Labs: Laboratory Last Values WBC 14.1 K/mm3 (4.5-11.0) H 03/10/19 08:18 RBC 4.19 M/mm3 (3.65-5.03) 03/10/19 08:18 Hgb 12.8 gm/dl (11.8-15.2) 03/10/19 08:18 Hct 37.4 % (35.5-45.6) 03/10/19 08:18 MCV 89 fl (84-94) 03/10/19 08:18 MCH 31 pg (28-32) 03/10/19 08:18 MCHC 34 % (32-34) 03/10/19 08:18 RDW 14.3 % (13.2-15.2) 03/10/19 08:18 Plt Count 380 K/mm3 (140-440) 03/10/19 08:18 Lymph % (Auto) 11.8 % (13.4-35.0) L 03/10/19 08:18 [place] % (Auto) 9.6 % (0.0-7.3) H 03/10/19 08:18 Eos % (Auto) 3.5 % (0.0-4.3) 03/10/19 08:18 Baso % (Auto) 0.4 % (0.0-1.8) 03/10/19 08:18 Lymph # 1.7 K/mm3 (1.2-5.4) 03/10/19 08:18 [place] # 1.3 K/mm3 (0.0-0.8) H 03/10/19 08:18 Eos # 0.5 K/mm3 (0.0-0.4) H 03/10/19 08:18 Baso # 0.1 K/mm3 (0.0-0.1) 03/10/19 08:18 Seg Neutrophils % 74.7 % (40.0-70.0) H 03/10/19 08:18 Seg Neutrophils # 10.5 K/mm3 (1.8-7.7) H 03/10/19 08:18 PT 14.3 Sec. (12.2-14.9) 03/05/19 18:01 INR 1.05 (0.87-1.13) 03/05/19 18:01 APTT 29.9 Sec. (24.2-36.6) 03/05/19 18:01 Sodium 137 mmol/L (137-145) 03/10/19 08:18 Potassium 4.5 mmol/L (3.6-5.0) 03/10/19 08:18 Chloride 96.7 mmol/L (98-107) L 03/10/19 08:18 Carbon Dioxide 21 mmol/L (22-30) L 03/10/19 08:18 24 mmol/L 03/10/19 08:18 BUN 14 mg/dL (9-20) 03/10/19 08:18 0.5 mg/dL (0.8-1.5) L 03/10/19 08:18 Estimated GFR > 60 ml/min 03/10/19 08:18 28 % 03/10/19 08:18 Glucose 113 mg/dL (75-100) H 03/10/19 08:18 POC Glucose 114 (70-105) H 03/08/19 13:01 Calcium 8.9 mg/dL (8.4-10.2) 03/10/19 08:18 0.30 mg/dL (0.1-1.2) 03/05/19 18:19 < 0.2 mg/dL (0-0.2) 03/05/19 18:19 0.1 mg/dL 03/05/19 18:19 AST 14 units/L (5-40) 03/05/19 18:19 ALT 13 units/L (7-56) 03/05/19 18:19 117 units/L (35-129) 03/05/19 18:19 < 0.010 ng/mL (0.00-0.029) 03/05/19 23:28 NT-Pro-B Natriuret Pep 113.5 pg/mL (0-900) 03/05/19 18:19 7.1 g/dL (6.3-8.2) 03/05/19 18:19 3.4 g/dL (3.9-5) L 03/05/19 18:19 0.9 % 03/05/19 18:19 16 units/L (13-60) 03/05/19 18:19 HIV 1&2 Antibody Rapid Non react (Non React) 03/07/19 Unknown Non react (Non React) 03/07/19 Unknown 03/08/19 Unknown Active Medications - Current Medications Current Medications: Generic Name Dose Route Start Last Admin Trade Name Freq PRN Reason Stop Dose Admin Acetaminophen 650 mg 03/05/19 22:11 03/11/19 21:09 Tylenol PO 650 mg Q4H PRN Administration Pain MILD(1-3)/Fever >100.5/BOO Albuterol 2.5 mg 03/08/19 06:04 Proventil IH Q4HRT PRN Shortness Of Breath Albuterol/Ipratropium 1 ampul 03/12/19 08:00 03/13/19 08:00 Duoneb *Not For Prn Use* IH 1 ampul TIDRT FRANCISCO JAVIER Administration Benzonatate 200 mg 03/06/19 06:00 03/13/19 06:18 Tessalon Perles PO 200 mg Q8HR FRANCISCO JAVIER Administration Budesonide 0.5 mg 03/06/19 08:00 03/13/19 08:00 Pulmicort IH 0.5 mg Q12HRT FRANCISCO JAVIER Administration Famotidine 20 mg 03/07/19 22:00 03/13/19 09:51 Pepcid PO 20 mg BID FRANCISCO JAVIER Administration Dextrose/Sodium Chloride 1,000 mls @ 75 mls/hr 03/10/19 00:01 03/11/19 17:26 D5ns 0.2% IV 75 mls/hr DIRECT FRANCISCO JAVIER Administration Ondansetron HCl 4 mg 03/05/19 22:11 Zofran IV Q8H PRN Nausea And Vomiting Oxycodone/Acetaminophen 1 tab 03/10/19 12:53 03/13/19 06:18 Percocet 5/325 PO 1 tab Q6H PRN Administration Pain, Moderate (4-6) Sodium Chloride 10 ml 03/06/19 10:00 06/10/19 06:18 Sodium Chloride Flush Syringe 10 Ml IV Not Given BID FRANCISCO JAVIER Sodium Chloride 10 ml 03/05/19 22:11 03/08/19 06:02 Sodium Chloride Flush Syringe 10 Ml IV 10 ml PRN PRN Administration LINE FLUSH Temazepam 15 mg 03/07/19 22:04 03/12/19 20:15 Restoril PO 15 mg QHS PRN Administration Sleep Nutrition/Malnutrition Assess - Dietary Evaluation Nutrition/Malnutrition Findings: Nutrition Notes Start: 03/10/19 16:01 Freq: Status: Active Protocol: Document 03/10/19 16:01 RM (Rec: 03/10/19 16:09 RM [email or web address]) Nutrition Notes Need for Assessment generated from: LOS Initial or Follow up Assessment Current Diagnosis COPD Other Pertinent Diagnosis Pneu, CP Current Diet NPO Labs/Tests Reviewed Pertinent Medications Reviewed Height 5 ft 6 in Weight 62.3 kg [place] Body Weight (kg) 64.54 BMI 22.1 Subjective/Other Information Screened for LOS. Pt NPO for brochoscopy w/ biopsy. Tech unsure how much pt has been eating. Recorded PO intake 41% X 6 meals. Percent of energy/protein needs met: 50%/55% (before NPO) Burn Absent Trauma Absent #1 Nutrition Diagnosis Inadequate oral intake Etiology COPD, CP, Pneu As Evidenced by Signs and Symptoms PO intake 41% X 6 meals Is patient on ventilator? No Is Patient Ambulatory and/or Out of Bed Yes REE-([facility]-ambulatory/OOB) [ 1749.475 NUTR.MSJOOB] Calculation Used for Recommendations [facility] Additional Notes Protein Needs: 62-75g (1-1.2g/ kg) Fluid Needs: 1 ml/kcal Nutrition Intervention Change Diet Order: Advance diet when medically able Add Supplement/Snack (indicate name/kcal Ensure Enlive 1 daily once /protein ) diet advanced Provides kCal: 350 Provides Protein (gm) 20 Goal #1 Diet advancemnt Anticipated Discharge Needs: Unable to determine at this time Follow-Up By: 03/15/19 Additional Comments Follow for diet advancement,PO and ONS intakes
[2019-03-13] MEDS ORDERED: CARDIZEM IV ONE (11:44)
--- NOTE | 2019-03-13 12:44 | Consultation ---
History of Present Illness Consult date: 03/13/19 Requesting physician: DEYANIRA SMILEY Consult reason: other (svt) History of present illness: The pt is a 68 YO male originally from [place], moved here in the , with a past medical history of latent TB ([facility]/p treatment in [facility]), tobacco use. He is previously unknown to our practice. He presented on 03/05/2019 with c/o progressively worsening SOB, chronic cough and unintentional 15-20lb weight loss over the past 2 months. He was subsequently found to have right lung mass and is s/p bronchoscopy with biopsy. He was going to be discharged from the hospital today but he developed SVT and thus ca rdiology has been consulted. Telemetry reviewed - pt had multiple bouts of SVT this morning which responded to IV adenosine. Pt states that he did feel palpitations during the SVT episodes. Prior to today, pt denies any chest pain, palpitations, n/v, diaphoresis, dizziness or syncope. Pt denies any known cardiac issues, although he admits he does not regularly see doctors and reports that he has never been hospitalized. Past History Past Medical History: No medical history Past Surgical History: No surgical history Social history: smoking (>2ppd) Family history: hypertension Medications and Allergies Allergies Allergy/AdvReac Type Severity Reaction Status Date / Time No Known Allergies Allergy Unverified 03/05/19 17:45 Home Medications Medication Instructions Recorded Confirmed Last Taken Type Ibuprofen [Motrin] 200 mg PO Q6H PRN 03/06/19 03/06/19 Unknown History Active Meds: Active Medications Acetaminophen (Tylenol) 650 mg PO Q4H PRN PRN Reason: Pain MILD(1-3)/Fever >100.5/BOO Last Admin: 03/11/19 21:09 Dose: 650 mg Documented by: Albuterol (Proventil) 2.5 mg IH Q4HRT PRN PRN Reason: Shortness Of Breath Albuterol/Ipratropium (Duoneb *Not For Prn Use*) 1 ampul IH TIDRT [facility] Last Admin: 03/13/19 08:00 Dose: 1 ampul Documented by: Benzonatate (Tessalon Perles) 200 mg PO Q8HR [facility] Last Admin: 03/13/19 06:18 Dose: 200 mg Documented by: Budesonide (Pulmicort) 0.5 mg IH Q12HRT [facility] Last Admin: 03/13/19 08:00 Dose: 0.5 mg Documented by: Diltiazem HCl (Cardizem) 60 mg PO TID [facility] Famotidine (Pepcid) 20 mg PO BID [facility] Last Admin: 03/13/19 09:51 Dose: 20 mg Documented by: Dextrose/Sodium Chloride (D5ns 0.2%) 1,000 mls @ 75 mls/hr IV DIRECT [facility] Last Admin: 03/11/19 17:26 Dose: 75 mls/hr Documented by: Ondansetron HCl (Zofran) 4 mg IV Q8H PRN PRN Reason: Nausea And Vomiting Oxycodone/Acetaminophen (Percocet 5/325) 1 tab PO Q6H PRN PRN Reason: Pain, Moderate (4-6) Last Admin: 03/13/19 06:18 Dose: 1 tab Documented by: Sodium Chloride (Sodium Chloride Flush Syringe 10 Ml) 10 ml IV BID [facility] Last Admin: 03/13/19 06:18 Dose: Not Given Documented by: Sodium Chloride (Sodium Chloride Flush Syringe 10 Ml) 10 ml IV PRN PRN PRN Reason: LINE FLUSH Last Admin: 03/08/19 06:02 Dose: 10 ml Documented by: Temazepam (Restoril) 15 mg PO QHS PRN PRN Reason: Sleep Last Admin: 03/12/19 20:15 Dose: 15 mg Documented by: Review of Systems Constitutional: weight loss, no weight gain, no fever, no chills, no sweats Ears, nose, mouth and throat: no ear pain, no nose pain, no sinus pressure, no sinus pain Cardiovascular: palpitations, rapid/irregular heart beat, shortness of breath, dyspnea on exertion, decreased exercise tolerance, no chest pain, no orthopnea, no edema, no syncope, no lightheadedness, no paroxysmal nocturnal dyspnea, no high blood pressure, no leg edema Respiratory: cough, shortness of breath, dyspnea on exertion, no congestion, no pain on inspiration Gastrointestinal: no abdominal pain, no nausea, no vomiting, no diarrhea, no constipation, no change in bowel habits Genitourinary Male: no dysuria, no hematuria, no flank pain, no discharge, no urinary frequency, no urinary hesitancy Musculoskeletal: no neck stiffness, no neck pain, no shooting arm pain, no arm numbness/tingling, no low back pain, no shooting leg pain Integumentary: no rash, no pruritis, no redness, no sores, no wounds Neurological: no head injury, no paralysis, no weakness, no parathesias, no numbness, no tingling, no seizures, no syncope Psychiatric: no anxiety Endocrine: no cold intolerance, no heat intolerance Hematologic/Lymphatic: no easy bruising, no easy bleeding Allergic/Immunologic: no urticaria, no wheezing Physical Examination Vital Signs Pulse Resp BP Pulse Ox 92 H 18 117/83 97 03/05/19 18:00 03/05/19 18:00 03/05/19 18:00 03/05/19 18:00 General appearance: no acute distress HEENT: Positive: PERRL, Normocephaly, Mucus Membranes Moist Neck: Positive: neck supple, trachea midline Cardiac: Positive: Reg Rate and Rhythm, S1/S2 Lungs: Positive: Decreased Breath Sounds Neuro: Positive: Grossly Intact Abdomen: Positive: Soft. Negative: Tender Skin: Negative: Rash, Wound Musculoskeletal: No Pain Extremities: Absent: edema Results 03/10/19 08:18 03/10/19 08:18 - Imaging and Cardiology Echo: pending EKG: report reviewed, image reviewed EKG interpretations - Telemetry EKG Rhythm: Sinus Rhythm - EKG Sinus rhythms and dysrhythmias: sinus rhythm Assessment and Plan Pt had multiple bouts of SVT this morning which was converted to SR/ST with IV adenosine. Optimize HR - initiate cardizem and titrate as tolerated. Obtain thyroid profile, serum Mg and echo. Cont to monitor on telemetry. Further recs to follow. The patient has been seen in conjunction with Dr. Arrieta who agrees with the assessment and plan of care. - Patient Problems (1) Paroxysmal SVT (supraventricular tachycardia) Current Visit: Yes Status: Acute (2) Mass of right lung Current Visit: Yes Status: Chronic (3) Tobacco use Current Visit: Yes Status: Chronic (4) History of TB (tuberculosis) Current Visit: Yes Status: Chronic
--- NOTE | 2019-03-13 13:17 | XRay Report ---
AP CHEST: HISTORY: Palpitations, SVT Near-complete opacification of the right hemithorax is demonstrated since 03/10/19. This appears to be secondary to large areas of atelectasis as well as a moderate to large right pleural effusion. The left lung is clear. Heart and mediastinal structures are grossly normal. IMPRESSION: Large areas of atelectasis in the right lung. Moderate right pleural effusion.
--- NOTE | 2019-03-13 14:02 | Progress Note ---
Assessment and Plan atient developed supraventricular tacycardia. Still complaining right sided pleuritic type of chest pain. Patient is on 2 litres O2. O2 Saturation 96%. Patients bronchoscopy specimens bronchial washings and bronchial brushings reported positive for malignant cells, consistent with non small cell CA. Recommend to consult oncology. - Patient Problems (1) Shortness of breath Current Visit: Yes Status: Acute Plan to address problem: O2 2 litres via nasal canula. Albuterol/atrovent aerosol treatments q 6 hours. Continue ceftrioxone and metronidazole. Continue S/C Lovenox. Continue famotidine. (2) Mass of right lung Current Visit: Yes Status: Chronic Plan to address problem: Patients bronchoscopy specimens bronchial washings and bronchial brushings reported positive for malignant cells, consistent with non small cell CA. Recommend to consult oncology. Subjective Date of service: 03/13/19 Interval history: Patient developed supraventricular tacycardia. Still complaining right sided pleuritic type of chest pain. Patient is on 2 litres O2. O2 Saturation 96%. P atients bronchoscopy specimens bronchial washings and bronchial brushings reported positive for malignant cells, consistent with non small cell CA. Recommend to consult oncology. Objective Vital Signs - 12hr 03/13/19 03/13/19 03/13/19 03:35 06:56 08:00 Temperature 98.0 F Pulse Rate 112 H 112 H Pulse Rate [ 103 H Anterior Bilateral Throughout] Respiratory 18 Rate Respiratory 20 Rate [Anterior Bilateral Throughout] Blood Pressure 107/64 O2 Sat by Pulse 98 98 Oximetry 03/13/19 03/13/19 03/13/19 08:10 08:17 12:01 Temperature 97.9 F Pulse Rate 89 112 H Pulse Rate [ 104 H Anterior Bilateral Throughout] Respiratory 18 Rate Respiratory 20 Rate [Anterior Bilateral Throughout] Blood Pressure 107/79 147/95 O2 Sat by Pulse 96 Oximetry Constitutional: no acute distress, alert ENT: oropharynx moist Neck: supple, no JVD Ascultation: Bilateral: diminished breath sounds, other (Prolonged expiratory phase.) Cardiovascular: other (Supraventricular tachycardia.) Gastrointestinal: normoactive bowel sounds, absent bowel sounds, soft, non- tender Integumentary: normal Extremities: no cyanosis, no edema Neurologic: normal mental status, non-focal exam, pupils equal and round, CN II- XII normal Psychiatric: mood appropriate CBC and BMP: 03/10/19 08:18 03/10/19 08:18 ABG, PT/INR, D-dimer: PT/INR, D-dimer PT 14.3 Sec. (12.2-14.9) 03/05/19 18:01 INR 1.05 (0.87-1.13) 03/05/19 18:01 Abnormal lab findings: Abnormal Labs 03/05/19 03/05/19 03/05/19 18:01 18:01 18:19 WBC 16.3 H MCHC Lymph % (Auto) 12.7 L [place] % (Auto) Eos % (Auto) 7.9 H [place] # 1.0 H Eos # 1.3 H Seg Neutrophils % 72.5 H Seg Neutrophils # 11.9 H Chloride Carbon Dioxide Creatinine 0.7 L Glucose POC Glucose Albumin 3.4 L 03/06/19 03/06/19 03/08/19 04:32 04:32 13:01 WBC 14.4 H MCHC 35 H Lymph % (Auto) [place] % (Auto) 7.4 H Eos % (Auto) 11.8 H [place] # 1.1 H Eos # 1.7 H Seg Neutrophils % Seg Neutrophils # 9.2 H Chloride Carbon Dioxide Creatinine 0.5 L Glucose 121 H POC Glucose 114 H Albumin 03/09/19 03/09/19 03/09/19 00:18 06:01 06:01 WBC 14.7 H 14.2 H MCHC 35 H Lymph % (Auto) [place] % (Auto) 9.6 H 10.9 H Eos % (Auto) 6.1 H 8.2 H [place] # 1.4 H 1.6 H Eos # 0.9 H 1.2 H Seg Neutrophils % Seg Neutrophils # 10.1 H 9.1 H Chloride Carbon Dioxide Creatinine 0.5 L Glucose 126 H POC Glucose Albumin 03/10/19 03/10/19 08:18 08:18 WBC 14.1 H MCHC Lymph % (Auto) 11.8 L [place] % (Auto) 9.6 H Eos % (Auto) [place] # 1.3 H Eos # 0.5 H Seg Neutrophils % 74.7 H Seg Neutrophils # 10.5 H Chloride 96.7 L Carbon Dioxide 21 L Creatinine 0.5 L Glucose 113 H POC Glucose Albumin
[2019-03-13] MEDS: CARDIZEM PO SCH ×2 (14:50→22:04)
[2019-03-13] MEDS: RESTORIL PO PRN (22:04)
[2019-03-13 23:23] LABS: Basophils # (Auto) 0.1 K/mm3 (0.0-0.1); Basophils % (Auto) 0.4 % (0.0-1.8); Eosinophils # (Auto) 0.7 K/mm3 (0.0-0.4); Eosinophils % (Auto) 4.5 % (0.0-4.3); Hematocrit 34.2 % (35.5-45.6); Hemoglobin 11.8 gm/dl (11.8-15.2); Lymphocytes # (Auto) 1.8 K/mm3 (1.2-5.4); Lymphocytes % (Auto) 11.4 % (13.4-35.0); Mean Corpuscular HGB Conc 34 % (32-34); Mean Corpuscular Volume 90 fl (84-94); Monocytes # (Auto) 1.6 K/mm3 (0.0-0.8); Monocytes % (Auto) 10.5 % (0.0-7.3); Platelet Count 544 K/mm3 (140-440); Red Blood Count 3.82 M/mm3 (3.65-5.03); Red Cell Distribution Width 14.8 % (13.2-15.2)
[2019-03-14 00:05] LABS: Alanine Aminotransferase 15 units/L (7-56); Albumin 2.9 g/dL (3.9-5); BUN/Creatinine Ratio 34; Blood Urea Nitrogen 17 mg/dL (9-20); Calcium 9.1 mg/dL (8.4-10.2); Hemolysis Index 2
[2019-03-14] MEDS: PERCOCET 5/325 PO PRN ×3 (05:30→21:40)
[2019-03-14] MEDS: TESSALON PERLES PO SCH ×3 (05:30→22:00)
[2019-03-14] MEDS: DUONEB *Not for PRN Use IH SCH ×3 (07:42→20:42)
[2019-03-14] MEDS: PULMICORT IH SCH ×2 (07:42→20:42)
[2019-03-14] MEDS: PEPCID PO SCH ×2 (09:38→21:45)
[2019-03-14] MEDS: CARDIZEM PO SCH ×3 (09:38→22:00)
--- NOTE | 2019-03-14 11:06 | Progress Note ---
Assessment and Plan Cultures: 03/05/2019 blood culture: no growth thus far 03/06/2019 AFB Stain x3: negative for acid fast bacilli A/P: 68-year-old male who is originally from [place], moved here in the , also has a history of latent TB infection based on positive PPD, [facility], admitted with chronic cough and: 1) R hilar mass: concerning for malignancy v/s TB reactivation. At risk for both but likely malignancy. Discontinue [place] isolation. AFB smears x 3 negative. No fever. HIV negative. Fiberoptic bronchosopy performed. The right lung, RUL take off was narrowed by tumor infiltration. No true endobronchial lesion was seen. Biopsy positive for malignancy. Recs: When clinically stable, Ok to discharge from ID standpoint AFB stain X 3 negative, Quantiferon goal not useful in someone with previously positive PPD Antibiotic therapy completed, no discharge abx needed ID is signing off [facility] M: [phone] O:[phone] Subjective Date of service: 03/14/19 Interval history: Patient seen and examined. No acute distress observed. Stated that he wanted to go home. Objective - Exam Narrative Exam: Constitutional: Alert, cooperative. No acute distress Head, Ears, Nose: Normocephalic, atraumatic. External ears, nose normal Eyes: Conjunctivae/corneas clear. No icterus. No ptosis. Neck: Supple, no meningeal signs Oral: dentition poor.. No thrush Cardiovascular: S1, S2 normal. Respiratory: Good air entry, clear to auscultation bilaterally GI: Soft, non-tender; bowel sounds normal. No peritoneal signs Musculoskeletal: No pedal edema, no cyanosis. Skin: No rash or abscess. Hem/Lymphatic: No palpable cervical or supraclavicular nodes. No lymphangitis Psych: Mood ok. Affect normal Neurological: Awake, alert, oriented. - Constitutional Vitals: Vital Signs Temp Pulse Resp BP Pulse Ox 98.8 F 88 18 115/78 96 03/14/19 04:17 03/14/19 09:38 03/14/19 07:43 03/14/19 04:17 03/14/19 07:45 Temperature -Last 24 Hours Temperature 98.8 F Temperature 98.7 F Temperature 98.3 F Temperature 98.2 F - Labs CBC & Chem 7: 03/13/19 22:57 03/13/19 22:57 Labs: Abnormal lab results 03/13/19 03/13/19 03/13/19 Range/Units 10:21 22:57 22:57 WBC 15.6 H (4.5-11.0) K/mm3 Hct 34.2 L (35.5-45.6) % Plt Count 544 H (140-440) K/mm3 Lymph % (Auto) 11.4 L (13.4-35.0) % [place] % (Auto) 10.5 H (0.0-7.3) % Eos % (Auto) 4.5 H (0.0-4.3) % [place] # 1.6 H (0.0-0.8) K/mm3 Eos # 0.7 H (0.0-0.4) K/mm3 Seg Neutrophils % 73.2 H (40.0-70.0) % Seg Neutrophils # 11.4 H (1.8-7.7) K/mm3 Sodium 132 L (137-145) mmol/L Chloride 93.0 L (98-107) mmol/L Creatinine 0.5 L (0.8-1.5) mg/dL Glucose 198 H (75-100) mg/dL POC Glucose 121 H (70-105) Alkaline Phosphatase 132 H (35-129) units/L Total Protein 5.6 L (6.3-8.2) g/dL Albumin 2.9 L (3.9-5) g/dL Free T4 (0.76-1.46) ng/dL 03/13/19 Range/Units 22:57 WBC (4.5-11.0) K/mm3 Hct (35.5-45.6) % Plt Count (140-440) K/mm3 Lymph % (Auto) (13.4-35.0) % [place] % (Auto) (0.0-7.3) % Eos % (Auto) (0.0-4.3) % [place] # (0.0-0.8) K/mm3 Eos # (0.0-0.4) K/mm3 Seg Neutrophils % (40.0-70.0) % Seg Neutrophils # (1.8-7.7) K/mm3 Sodium (137-145) mmol/L Chloride (98-107) mmol/L Creatinine (0.8-1.5) mg/dL Glucose (75-100) mg/dL POC Glucose (70-105) Alkaline Phosphatase (35-129) units/L Total Protein (6.3-8.2) g/dL Albumin (3.9-5) g/dL Free T4 1.71 H (0.76-1.46) ng/dL
--- NOTE | 2019-03-14 12:41 | Progress Note ---
Assessment and Plan Echo reviewed - EF 55-60%. Pt currently in SR with a bout of apparent AFlutter RVR overnight. Cont cardizem. Pt with CHADS score of 1 and thus systemic AC in regards to PAFlutter is not currently indicated. Bronchoscopy specimens reported positive for malignant cells, consistent with non small cell CA. Pulmonary recommends oncology consultation. The patient has been seen in conjunction with Dr. Arrieta who agrees with the assessment and plan of care. - Patient Problems (1) Paroxysmal SVT (supraventricular tachycardia) Current Visit: Yes Status: Acute (2) Paroxysmal atrial flutter Current Visit: Yes Status: Acute (3) Mass of right lung Current Visit: Yes Status: Chronic (4) Lung cancer Current Visit: Yes Status: Chronic (5) Tobacco use Current Visit: Yes Status: Chronic (6) History of TB (tuberculosis) Current Visit: Yes Status: Chronic Subjective Date of service: 03/14/19 Principal diagnosis: SVT Interval history: pt with no current cardiac complaints. tele reviewed - currently in SR with a bout of apparent AFlutter RVR overnight. Objective Last Vital Signs Temp 98.8 F 03/14/19 04:17 Pulse 88 03/14/19 09:38 Resp 18 03/14/19 07:43 BP 115/78 03/14/19 04:17 Pulse Ox 96 03/14/19 07:45 - Physical Examination General: No Apparent Distress HEENT: Positive: PERRL, Normocephaly, Mucus Membranes Moist Neck: Positive: neck supple, trachea midline Cardiac: Positive: Reg Rate and Rhythm, S1/S2 Lungs: Positive: Decreased Breath Sounds Neuro: Positive: Grossly Intact Abdomen: Positive: Soft. Negative: Tender Skin: Negative: Rash, Wound Musculoskeletal: No Pain Extremities: Absent: edema - Labs and Meds Cardiac Enzymes 03/13/19 Range/Units 22:57 AST 15 (5-40) units/L CBC 03/13/19 Range/Units 22:57 WBC 15.6 H (4.5-11.0) K/mm3 RBC 3.82 (3.65-5.03) M/mm3 Hgb 11.8 (11.8-15.2) gm/dl Hct 34.2 L (35.5-45.6) % Plt Count 544 H (140-440) K/mm3 Lymph # 1.8 (1.2-5.4) K/mm3 [place] # 1.6 H (0.0-0.8) K/mm3 Eos # 0.7 H (0.0-0.4) K/mm3 Baso # 0.1 (0.0-0.1) K/mm3 Comprehensive Metabolic Panel 03/13/19 Range/Units 22:57 Sodium 132 L (137-145) mmol/L Potassium 4.3 (3.6-5.0) mmol/L Chloride 93.0 L (98-107) mmol/L Carbon Dioxide 26 (22-30) mmol/L BUN 17 (9-20) mg/dL Creatinine 0.5 L (0.8-1.5) mg/dL Glucose 198 H (75-100) mg/dL Calcium 9.1 (8.4-10.2) mg/dL AST 15 (5-40) units/L ALT 15 (7-56) units/L Alkaline Phosphatase 132 H (35-129) units/L Total Protein 5.6 L (6.3-8.2) g/dL Albumin 2.9 L (3.9-5) g/dL - Imaging and Cardiology EKG: report reviewed, image reviewed Echo: pending - EKG Sinus rhythms and dysrhythmias: sinus rhythm
--- NOTE | 2019-03-14 13:50 | Progress Note ---
Assessment and Plan atient awake. Patient is resting on 2 litres O2. O2 Saturation 96%. Patients bronchoscopy specimens bronchial washings and bronchial brushings reported positive for malignant cells, consistent with non small cell CA. Recommend to consult oncology. - Patient Problems (1) Shortness of breath Current Visit: Yes Status: Acute Plan to address problem: O2 2 litres via nasal canula. Albuterol/atrovent aerosol treatments q 6 hours. Continue S/C Lovenox. Continue famotidine. (2) Mass of right lung Current Visit: Yes Status: Chronic Plan to address problem: Patients bronchoscopy specimens bronchial washings and bronchial brushings repor toni positive for malignant cells, consistent with non small cell CA. Recommend to consult oncology. Subjective Date of service: 03/14/19 Principal diagnosis: SVT Interval history: Patient awake. Patient is resting on 2 litres O2. O2 Saturation 96%. Patients bronchoscopy specimens bronchial washings and bronchial brushings reported positive for malignant cells, consistent with non small cell CA. Recommend to consult oncology. Objective Vital Signs - 12hr 03/14/19 03/14/19 03/14/19 04:17 07:43 07:45 Temperature 98.8 F Pulse Rate 93 H Pulse Rate [ 93 H Anterior Bilateral Throughout] Pulse Rate [ 88 Posterior Bilateral Throughout] Respiratory 20 Rate Respiratory 18 Rate [Anterior Bilateral Throughout] Respiratory 16 Rate [Posterior Bilateral Throughout] Blood Pressure 115/78 O2 Sat by Pulse 94 96 Oximetry 03/14/19 09:38 Temperature Pulse Rate 88 Pulse Rate [ Anterior Bilateral Throughout] Pulse Rate [ Posterior Bilateral Throughout] Respiratory Rate Respiratory Rate [Anterior Bilateral Throughout] Respiratory Rate [Posterior Bilateral Throughout] Blood Pressure O2 Sat by Pulse Oximetry Constitutional: no acute distress, alert ENT: oropharynx moist Neck: supple, no JVD Ascultation: Bilateral: diminished breath sounds, other (Prolonged expiratory phase.) Cardiovascular: other (Supraventricular tachycardia.) Gastrointestinal: normoactive bowel sounds, absent bowel sounds, soft, non- tender Integumentary: normal Extremities: no cyanosis, no edema Neurologic: normal mental status, non-focal exam, pupils equal and round, CN II- XII normal Psychiatric: mood appropriate CBC and BMP: 03/13/19 22:57 03/13/19 22:57 ABG, PT/INR, D-dimer: PT/INR, D-dimer PT 14.3 Sec. (12.2-14.9) 03/05/19 18:01 INR 1.05 (0.87-1.13) 03/05/19 18:01 Abnormal lab findings: Abnormal Labs 03/05/19 03/05/19 03/05/19 18:01 18:01 18:19 WBC 16.3 H Hct MCHC Plt Count Lymph % (Auto) 12.7 L [place] % (Auto) Eos % (Auto) 7.9 H [place] # 1.0 H Eos # 1.3 H Seg Neutrophils % 72.5 H Seg Neutrophils # 11.9 H Sodium Chloride Carbon Dioxide Creatinine 0.7 L Glucose POC Glucose Alkaline Phosphatase Total Protein Albumin 3.4 L Free T4 03/06/19 03/06/19 03/08/19 04:32 04:32 13:01 WBC 14.4 H Hct MCHC 35 H Plt Count Lymph % (Auto) [place] % (Auto) 7.4 H Eos % (Auto) 11.8 H [place] # 1.1 H Eos # 1.7 H Seg Neutrophils % Seg Neutrophils # 9.2 H Sodium Chloride Carbon Dioxide Creatinine 0.5 L Glucose 121 H POC Glucose 114 H Alkaline Phosphatase Total Protein Albumin Free T4 03/09/19 03/09/19 03/09/19 00:18 06:01 06:01 WBC 14.7 H 14.2 H Hct MCHC 35 H Plt Count Lymph % (Auto) [place] % (Auto) 9.6 H 10.9 H Eos % (Auto) 6.1 H 8.2 H [place] # 1.4 H 1.6 H Eos # 0.9 H 1.2 H Seg Neutrophils % Seg Neutrophils # 10.1 H 9.1 H Sodium Chloride Carbon Dioxide Creatinine 0.5 L Glucose 126 H POC Glucose Alkaline Phosphatase Total Protein Albumin Free T4 03/10/19 03/10/19 03/13/19 08:18 08:18 10:21 WBC 14.1 H Hct MCHC Plt Count Lymph % (Auto) 11.8 L [place] % (Auto) 9.6 H Eos % (Auto) [place] # 1.3 H Eos # 0.5 H Seg Neutrophils % 74.7 H Seg Neutrophils # 10.5 H Sodium Chloride 96.7 L Carbon Dioxide 21 L Creatinine 0.5 L Glucose 113 H POC Glucose 121 H Alkaline Phosphatase Total Protein Albumin Free T4 03/13/19 03/13/19 03/13/19 22:57 22:57 22:57 WBC 15.6 H Hct 34.2 L MCHC Plt Count 544 H Lymph % (Auto) 11.4 L [place] % (Auto) 10.5 H Eos % (Auto) 4.5 H [place] # 1.6 H Eos # 0.7 H Seg Neutrophils % 73.2 H Seg Neutrophils # 11.4 H Sodium 132 L Chloride 93.0 L Carbon Dioxide Creatinine 0.5 L Glucose 198 H POC Glucose Alkaline Phosphatase 132 H Total Protein 5.6 L Albumin 2.9 L Free T4 1.71 H
--- NOTE | 2019-03-14 14:57 | Progress Note ---
Assessment and Plan /SVT; heart rate is ranging between 170s and 180s, status post IV adenosine 6 mg converted to sinus, now heart rate 100 -110 Patient remained asymptomatic throughout the event, chronic AC not indicated per cardiology EKG, echocardiogram for LV function, cardiology following / Pulmonary infiltrate/(Acute pneumonia); status post empiric antibiotics Rocephin and Flagyl Negative cultures, AFB 4 negative, ID recommended DC isolation, cleared for discharge /-Large right hilar mass : post bronchoscopy and biopsy HIV negative, pulmonary following Lung biopsy showed non-small carcinoma, Oncology consulted. 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 Pt was admitted through ED with chest pain and cough, lot of calories at work, he reports good appetite. 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 ID cleared for DC. Lung biopsy showed non-small carcinoma, Oncology consulted. Hospitalist Physical General appearance: Present: no acute distress, cachectic, disheveled - EENT Eyes: Present: PERRL, EOM intact - Neck Neck: Present: supple, normal ROM - Respiratory Respiratory effort: normal Respiratory: bilateral: diminished, rhonchi, negative: rales, wheezing - Cardiovascular Rhythm: regular Heart Sounds: Present: S1 & S2 - Extremities Extremities: no ischemia, No edema - Abdominal General gastrointestinal: soft, non-tender, non-distended - Integumentary Integumentary: Present: clear, warm - Psychiatric Psychiatric: appropriate mood/affect, cooperative - Neurologic Neurologic: moves all extremities Subjective Date of service: 03/14/19 Principal diagnosis: SVT Interval history: Patient seen and examined. Medical records and medication list reviewed. No acute event overnight noted by the RN. Patient denies any chest pain or difficulty breathing. Patient is tolerating diet. Discussed plan of care at bedside with patient. He wants to go home and do outpatient follow-up for his new diagnosis of malignancy Objective - Constitutional Vitals: Vital Signs - 12hr 03/14/19 03/14/19 03/14/19 04:17 07:43 07:45 Temperature 98.8 F Pulse Rate 93 H Pulse Rate [ 93 H Anterior Bilateral Throughout] Pulse Rate [ 88 Posterior Bilateral Throughout] Respiratory 20 Rate Respiratory 18 Rate [Anterior Bilateral Throughout] Respiratory 16 Rate [Posterior Bilateral Throughout] Blood Pressure 115/78 O2 Sat by Pulse 94 96 Oximetry 03/14/19 03/14/19 09:38 13:54 Temperature Pulse Rate 88 Pulse Rate [ 83 Anterior Bilateral Throughout] Pulse Rate [ 79 Posterior Bilateral Throughout] Respiratory Rate Respiratory 18 Rate [Anterior Bilateral Throughout] Respiratory 20 Rate [Posterior Bilateral Throughout] Blood Pressure O2 Sat by Pulse Oximetry - Labs CBC & Chem 7: 03/13/19 22:57 03/13/19 22:57 Labs: Abnormal lab results 03/13/19 03/13/19 03/13/19 Range/Units 22:57 22:57 22:57 WBC 15.6 H (4.5-11.0) K/mm3 Hct 34.2 L (35.5-45.6) % Plt Count 544 H (140-440) K/mm3 Lymph % (Auto) 11.4 L (13.4-35.0) % [place] % (Auto) 10.5 H (0.0-7.3) % Eos % (Auto) 4.5 H (0.0-4.3) % [place] # 1.6 H (0.0-0.8) K/mm3 Eos # 0.7 H (0.0-0.4) K/mm3 Seg Neutrophils % 73.2 H (40.0-70.0) % Seg Neutrophils # 11.4 H (1.8-7.7) K/mm3 Sodium 132 L (137-145) mmol/L Chloride 93.0 L (98-107) mmol/L Creatinine 0.5 L (0.8-1.5) mg/dL Glucose 198 H (75-100) mg/dL Alkaline Phosphatase 132 H (35-129) units/L Total Protein 5.6 L (6.3-8.2) g/dL Albumin 2.9 L (3.9-5) g/dL Free T4 1.71 H (0.76-1.46) ng/dL
[2019-03-14] MEDS: SODIUM CHLORIDE FLUSH SYRINGE 10 ML IV SCH ×2 (21:00→22:00)
[2019-03-14] MEDS ORDERED: LOVENOX SUB-Q SCH (22:00)
[2019-03-15] MEDS: TESSALON PERLES PO SCH ×2 (05:12→13:15)
[2019-03-15] MEDS: PERCOCET 5/325 PO PRN ×2 (05:17→13:14)
[2019-03-15] MEDS: DUONEB *Not for PRN Use IH SCH ×2 (08:25→14:07)
[2019-03-15] MEDS: PULMICORT IH SCH (08:25)
[2019-03-15 08:46] VITALS: BP 110/72
[2019-03-15] MEDS: PEPCID PO SCH (10:06)
[2019-03-15] MEDS: CARDIZEM PO SCH ×3 (10:06→16:20)
[2019-03-15] MEDS: SODIUM CHLORIDE FLUSH SYRINGE 10 ML IV SCH (10:07)
--- NOTE | 2019-03-15 11:02 | Progress Note ---
Assessment and Plan Optimize HR - increase cardizem dosage. Pt with CHADS score of 1 and thus systemic AC in regards to PAFlutter is not currently indicated. Bronchoscopy specimens reported positive for malignant cells, consistent with non small cell CA. Heme/oncology following. Currently stable cardiac status. Pt may discharge from cardiology standpoint. Recommend pt follow up in our office with Dr. Arrieta within 1-2 weeks of hospital discharge ([phone]). Pt verbalizes understanding. The patient has been seen in conjunction with Dr. Arrieta who agrees with the assessment and plan of care. - Patient Problems (1) Paroxysmal SVT (supraventricular tachycardia) Current Visit: Yes Status: Acute (2) Paroxysmal atrial flutter Current Visit: Yes Status: Acute (3) Mass of right lung Current Visit: Yes Status: Chronic (4) Lung cancer Current Visit: Yes Status: Chronic (5) Tobacco use Current Visit: Yes Status: Chronic (6) History of TB (tuberculosis) Current Visit: Yes Status: Chronic Subjective Date of service: 03/15/19 Principal diagnosis: SVT Interval history: pt with no current cardiac complaints. tele reviewed - currently in SR with a few bouts of apparent AFlutter RVR overnight. Objective Last Vital Signs Temp 97.9 F 03/15/19 08:29 Pulse 85 03/15/19 10:06 Resp 18 03/15/19 08:39 BP 110/72 03/15/19 10:06 Pulse Ox 95 03/15/19 09:44 - Physical Examination General: No Apparent Distress HEENT: Positive: PERRL, Normocephaly, Mucus Membranes Moist Neck: Positive: neck supple, trachea midline Cardiac: Positive: Reg Rate and Rhythm, S1/S2 Lungs: Positive: Decreased Breath Sounds Neuro: Positive: Grossly Intact Abdomen: Positive: Soft. Negative: Tender Skin: Negative: Rash, Wound Musculoskeletal: No Pain Extremities: Absent: edema - Imaging and Cardiology EKG: report reviewed, image reviewed Echo: report reviewed ( EF 55-60%. ) - Telemetry EKG Rhythm: Sinus Rhythm - EKG Sinus rhythms and dysrhythmias: sinus rhythm
--- NOTE | 2019-03-15 15:17 | Discharge Summary ---
Providers - Providers Date of Admission: 03/05/19 22:11 Date of discharge: 03/15/19 Attending physician: MANDY LINARES 03/06/19 04:51 Consult to Physician [CONS] Routine Comment: Consulting Provider: TOMMY DOSS Physician Instructions: Reason For Exam: Possible TB 03/06/19 04:52 Consult to Physician [CONS] Routine Comment: Consulting Provider: ROBERTH HALE Physician Instructions: Reason For Exam: LUNG LESION, ?MASS VS TB 03/13/19 10:30 Consult to Physician [CONS] Routine Comment: Consulting Provider: GERA HAY Physician Instructions: Reason For Exam: SVT 03/14/19 13:06 Consult to Physician [CONS] Routine Comment: Consulting Provider: SERGO CONDE Physician Instructions: Reason For Exam: non small cell cancer [facility] Condition: Stable Pertinent studies: Chest x-ray, chest CTA, bronchoscopy with lung biopsy Hospital course: Brief History 68-year-old male with PMHx of positive PPD skin test, treated with antituberculosis regimen for 6 months in 1986. Pt was admitted through ED with chest pain and cough, lot of stress at work, he reports good appetite. Pt had a CTA chest showed a large right lung mass, concerning for malignancy, pt was evaluated by pulm, had bronchoscopy . Had suspicion for pul TB,placed on isolation, ID evaluated and AFB x4 neg, isolation dced. ID cleared for DC. Received antibiotics per ID. developed recurrent SVT requiring adenosine now on cardizem, cardiology was consulted. Lung biopsy showed non-small carcinoma, Oncology consulted. Patient will follow-up with Dr. Friedman, oncologist as outpatient for further management of this new diagnosis of non-small cell carcinoma. He was recommended to have metastatic workup but he preferred to get it done as an outpatient. Patient was discharged home in stable condition.. Discharge diagnosis and management: /SVT; heart rate ranging between 170s and 180s, status post IV adenosine 6 mg converted to sinus, now heart rate ~90 Patient remained asymptomatic throughout the event, chronic AC not indicated per cardiology Patient will continue Cardizem, will follow cardiology outpatient. / Pulmonary infiltrate/(Acute pneumonia); status post empiric antibiotics Rocephin and Flagyl Negative cultures, AFB 4 negative, ID recommended DC isolation, cleared for discharge /-Large right hilar mass : post bronchoscopy and biopsy HIV negative, pulmonary following Lung biopsy showed non-small carcinoma, Oncology consulted - Patient will continue outpatient follow-up /-H/o latent TB[ positive PPD 1987 ,treated with antiTB regimen] /-Ongoing Tobacco use; smoking cessation counseling done and recommended nicotine patch as needed /-DVT prophylaxis; Lovenox Disposition: Home with outpatient follow-up Hospitalist Physical General appearance: Present: no acute distress, cachectic, disheveled - EENT Eyes: Present: PERRL, EOM intact - Neck Neck: Present: supple, normal ROM - Respiratory Respiratory effort: normal Respiratory: bilateral: diminished, rhonchi, negative: rales, wheezing - Cardiovascular Rhythm: regular Heart Sounds: Present: S1 & S2 - Extremities Extremities: no ischemia, No edema - Abdominal General gastrointestinal: soft, non-tender, non-distended - Integumentary Integumentary: Present: clear, warm - Psychiatric Psychiatric: appropriate mood/affect, cooperative - Neurologic Neurologic: moves all extremities Disposition: DC- TO HOME OR SELFCARE Time spent for discharge: 34 minutes Core Measure Documentation - Palliative Care Palliative Care/ Comfort Measures: Not Applicable - Core Measures Any of the following diagnoses?: none Exam - Constitutional Vitals: Temp Pulse Resp BP Pulse Ox 97.9 F 90 18 110/72 95 03/15/19 08:29 03/15/19 14:07 03/15/19 14:07 03/15/19 10:06 03/15/19 09:44 Plan Activity: fall precautions Weight Bearing Status: Non-Weight Bearing Diet: low fat Special Instructions: record daily BP diary, follow up in rehab, no heavy lifting Follow up with: GERA HAY MD [Staff Physician] - [facility]-5 Days SERGO CONDE MD [Staff Physician] - 7 Days Prescriptions: Temazepam [Restoril] 15 mg PO QHS PRN #7 capsule PRN Reason: Sleep dilTIAZem [Cardizem] 60 mg PO Q6H #120 tablet oxyCODONE /ACETAMINOPHEN [Percocet 5/325 mg] 1 tab PO Q6H PRN #14 tablet PRN Reason: Pain, Moderate (4-6) ALBUTEROL Inhaler (OR & NICU) [Proair] 2 puff IH QID PRN 30 Days #1 vial PRN Reason: Shortness Of Breath Benzonatate [Tessalon Perles] 200 mg PO Q8HR #14 capsule Ipratropium/Albuterol Sulfate [DUONEB *Not for PRN Use*] 1 ampul IH TIDRT #30 ampul.neb Other Discharge Orders: Nebulizer (Amb) Location: None Selected
--- NOTE | 2019-03-16 07:19 | Event Note ---
Date: 03/15/19 [id number]
--- NOTE | 2019-03-16 16:24 | Consultation ---
REFERRING PHYSICIAN: Dr. Bernard. REASON FOR CONSULTATION: Lung cancer. HISTORY OF PRESENT ILLNESS: I saw the patient, a 68-year-old male, in the medical floor. The patient was admitted because of shortness of breath for 1 month. The patient states that he has a history of PPD positive for which he was treated with anti-tuberculosis regimen in 1986. He came to the hospital because of chest pain, shortness of breath, and cough. He said cough has been there for 2 months, shortness of breath for about a month, also has chest discomfort with cough. No nausea, no vomiting. No hemoptysis, no hematemesis, no abdominal pain, no vomiting, no diarrhea, no dysuria. During this admission, CT chest had shown right lung mass, large size, concerning for malignancy. The patient was seen by the Pulmonary team and ID team. The patient also had tachycardia issues. The patient underwent bronchoscopy and biopsy this showed lung nonsmall cell carcinoma. The patient has a history of smoking. The mass was central location. Hence, I was consulted. During this admission, HIV test was negative and AFB was negative. At this time, no headache, no visual disturbances. No ear discharge. Breathing has improved. No abdominal pain, no nausea, no vomiting, no diarrhea. No seizure or syncope or loss of consciousness. PAST SURGICAL HISTORY: Includes as above. SURGICAL HISTORY: Nil. SOCIAL HISTORY: History of smoking present. FAMILY HISTORY: Noncontributory. The patient lives with friends and coworkers. ALLERGIES: None. PHYSICAL EXAMINATION: VITAL SIGNS: Temperature 97, pulse 80, respirations 16, BP 110/72. Well-built male. HEENT: No pallor, no icterus. NECK: No neck lymph nodes. HEART: S1, S2. LUNGS: Decreased air entry on the right side. ABDOMEN: Soft. EXTREMITIES: No calf tenderness. NEUROLOGIC: Alert, awake, oriented. LABORATORY DATA: White cell 15, hemoglobin 11, MCV 90, platelets 544. Potassium 4.3, creatinine 0.5, calcium 9.1, bilirubin 0.3. TSH 2.4. HIV negative. AFP negative. RADIOLOGY: CT chest done on 03/05/2019 shows 13 x 9 x 10 cm right lung hilum to apex mass. This mass is encasing bronchial veins, pulmonary artery, and bronchi on the right. PATHOLOGY: Non-small cell lung cancer. It is not reported if it is adeno or squamous. ASSESSMENT: 1. Advanced non-small cell lung cancer in a patient with history of smoking. The mass is large and encases the pulmonary veins, arteries, and bronchi. I discussed with the patient regarding CT head and abdomen to look for other mets. The patient is keen to go home and wants to follow up as an outpatient. 2. History of supraventricular tachycardia. 3. History of latent TB in 1986. 4. History of tobacco use. I discussed about quitting same. 5. I will follow the patient during inpatient and then in the clinic setting. JOB# [id number] NM/NTS
== END 2019-03-15 17:00 | disposition home or self-care (01) | DRG 180 ==
LOC: ED 17:31 → 4A 22:11
PROVIDERS: ADMIT Internal Medicine; ATTEND Internal Medicine
PROC: 3E0234Z Introduction of Serum, Toxoid and Vaccine into Muscle, Percutaneous Approach (ICD-10-PCS; principal; 2019-03-06)
PROC: 0BB48ZX Excision of Right Upper Lobe Bronchus, Via Natural or Artificial Opening Endoscopic, Diagnostic (ICD-10-PCS; 2019-03-10)
PROC: 0BD48ZX Extraction of Right Upper Lobe Bronchus, Via Natural or Artificial Opening Endoscopic, Diagnostic (ICD-10-PCS; 2019-03-10)
PROC: 0B948ZZ Drainage of Right Upper Lobe Bronchus, Via Natural or Artificial Opening Endoscopic (ICD-10-PCS; 2019-03-10)
DX: C34.91 Malignant neoplasm of unspecified part of right bronchus or lung (principal); J18.9 Pneumonia, unspecified organism; J96.01 Acute respiratory failure with hypoxia; E43 Unspecified severe protein-calorie malnutrition; I47.1 Supraventricular tachycardia; J44.0 Chronic obstructive pulmonary disease with (acute) lower respiratory infection; I48.92 Unspecified atrial flutter; R65.10 Systemic inflammatory response syndrome (SIRS) of non-infectious origin without acute organ dysfunction; F17.200 Nicotine dependence, unspecified, uncomplicated; Z71.6 Tobacco abuse counseling; D72.829 Elevated white blood cell count, unspecified; Z82.49 Family history of ischemic heart disease and other diseases of the circulatory system; Z86.11 Personal history of tuberculosis; Z23 Encounter for immunization
CPT/HCPCS: 36415; 71045; 71275; 80048; 80053; 80076; 82962; 83690; 83735; 83880; 84439; 84443; 84484; 85025; 85610; 85730; 87040; 87806; 88104; 88112; 88305; 88312; 88341; 88342; 90732; 93005; 93010; 93306; 94640; 94760; 99406; G0378; J0153; J0171; J0456; J0696; J1650; J2270; J2405; J2543; J2704; J3010; J7030; J7050; Q9967

== ENCOUNTER 2019-04-07 23:24 | Inpatient (IN) | payer MEDICAID, OTHER ==
[2019-04-08 00:07] LABS: Basophils # (Auto) 0.1 K/mm3 (0.0-0.1); Basophils % (Auto) 0.6 % (0.0-1.8); Eosinophils # (Auto) 0.4 K/mm3 (0.0-0.4); Eosinophils % (Auto) 2.7 % (0.0-4.3); Hematocrit 27.7 % (35.5-45.6); Hemoglobin 9.5 gm/dl (11.8-15.2); Lymphocytes # (Auto) 1.9 K/mm3 (1.2-5.4); Lymphocytes % (Auto) 12.7 % (13.4-35.0); Mean Corpuscular HGB Conc 34 % (32-34); Mean Corpuscular Volume 91 fl (84-94); Monocytes # (Auto) 1.8 K/mm3 (0.0-0.8); Monocytes % (Auto) 12.1 % (0.0-7.3); Platelet Count 494 K/mm3 (140-440); Red Blood Count 3.03 M/mm3 (3.65-5.03); Red Cell Distribution Width 16.4 % (13.2-15.2)
--- NOTE | 2019-04-08 00:07 | XRay Report ---
CHEST 1 VIEW INDICATION: Chest Pain. COMPARISON: 03/13/2019. FINDINGS: Support devices: None. Heart: Normal. Lungs/Pleura: There is persistent complete opacification of the right hemithorax. Left lung remains c lear. No pneumothorax. IMPRESSION: 1. Persistent complete opacification of the right hemithorax. Signer Name: Charlie Ornelas MD Signed: 04/08/2019 12:03 AM Workstation Name: [id number]
[2019-04-08 00:27] LABS: Alanine Aminotransferase 40 units/L (7-56); Albumin 2.8 g/dL (3.9-5); BUN/Creatinine Ratio 34; Blood Urea Nitrogen 17 mg/dL (9-20); Calcium 8.8 mg/dL (8.4-10.2); Hemolysis Index 10
[2019-04-08] MEDS ORDERED: ROCEPHIN/NS 2 GM/100 ML 2 GM/100 ML BAG IV ONE (00:59)
[2019-04-08] MEDS ORDERED: ZITHROMAX 500 MG in NACL 0.9% 250ML 250 ML IV ONE (00:59)
[2019-04-08] MEDS ORDERED: NACL 0.9% 1000 ML IV ONE (00:59)
[2019-04-08 01:00] LABS: INR 1.28 (0.87-1.13)
[2019-04-08 01:36] LABS: Partial Thromboplastin Time 36.5 Sec. (24.2-36.6)
--- NOTE | 2019-04-08 02:15 | Cat Scan Report ---
CTA CHEST WITH IV CONTRAST INDICATION: PATIENT STATES HAS LUNG CANCER. D-DIMER 4399.55. TECHNIQUE: Axial CT images were obtained through the chest after injection of IV contrast. 3 plane MIP reconstru ctions were produced. All CT scans at this location are performed using CT dose reduction for ALARA b y means of automated exposure control. COMPARISON: CTA chest 03/05/2019. FINDINGS: Pulmonary Arteries: No pulmonary emboli. Thoracic Aorta: There is a focal plaque along the posterior wall of the proximal descending thoracic aorta (axial image 50) prior. Thoracic aorta is otherwise unremarkable, given contrast timing. Heart: There is a new moderate pericardial effusion. Coronary Arteries: No significant calcification. Lungs: There is complete consolidative change throughout the right lung, this is likely due to comple te atelectasis. There is abrupt cut off at the right mainstem bronchus. Emphysematous changes are not ed throughout the left lung. There is trace atelectasis in the left lung base. Pleura: There is a small to moderate right pleural effusion, increased since the prior. There is trac e left pleural fluid as well. No pneumothorax. Lymph Nodes: No significant adenopathy. Additional Findings: None. Upper Abdomen: No acute findings. Skeletal Structures: No significant osseous abnormality. IMPRESSION: 1. There is complete atelectasis/collapse of the right lung with abrupt cut off of the right mainstem bronchus which may be due to mucous plug or neoplasm. Bronchoscopy is recommended. 2. Small to moderate right pleural effusion, increased in size. 3. Moderate pericardial effusion, new since the prior. 4. No acute PTE is seen. Signer Name: Charlie Ornelas MD Signed: 04/08/2019 2:11 AM Workstation Name: [id number]
[2019-04-08] MEDS ORDERED: MORPHINE IV ONE (02:16)
--- NOTE | 2019-04-08 03:10 | Emergency Department Report ---
ED General Adult HPI - General Chief complaint: Chest Pain Stated complaint: CX PAIN Time Seen by Provider: 04/07/19 23:36 Source: patient, EMS Mode of arrival: Wheelchair Limitations: Language Barrier - History of Present Illness Initial comments: Patient is a 68-year-old gentleman who is presenting with increased shortness of breath and chest pain for the last 4 days. Patient states that the pain is worse with coughing. Patient states he's had worsening shortness of breath to the point where he has a hard time even getting to the bathroom. Patient states he was discharged from the hospital last month with diagnosis of lung cancer but has been unable to follow with oncology secondary to finances. Patient denies any fevers chills nausea vomiting. 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 Pt was admitted through ED with chest pain and cough, lot of calories at work, he reports good appetite. 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 ID cleared for DC. Lung biopsy showed non-small carcinoma, Oncology consulted. Patient will follow-up with Dr. Friedman, oncologist as outpatient for further management of this new diagnosis of non-small cell carcinoma. He was recommended to have metastatic workup but he preferred to get it done as an outpatient. Patient was discharged home in stable condition.. Severity scale (0 -10): 8 - Related Data Previous Rx's Medication Instructions Recorded Last Taken Type ALBUTEROL Inhaler (OR & NICU) 2 puff IH QID PRN 30 Days #1 vial 03/15/19 Unknown Rx [Proair] Benzonatate [Tessalon Perles] 200 mg PO Q8HR #14 capsule 03/15/19 Unknown Rx Ipratropium/Albuterol Sulfate 1 ampul IH TIDRT #30 ampul.neb 03/15/19 Unknown Rx [DUONEB *Not for PRN Use*] Temazepam [Restoril] 15 mg PO QHS PRN #7 capsule 03/15/19 Unknown Rx dilTIAZem [Cardizem] 60 mg PO Q6H #120 tablet 03/15/19 Unknown Rx oxyCODONE /ACETAMINOPHEN [Percocet 1 tab PO Q6H PRN #14 tablet 03/15/19 Unknown Rx 5/325 mg] Allergies Allergy/AdvReac Type Severity Reaction Status Date / Time No Known Allergies Allergy Unverified 03/05/19 17:45 ED Review of Systems ROS: Stated complaint: CX PAIN Other details as noted in HPI Comment: All other systems reviewed and negative ED Past Medical Hx - Past Medical History Previous Medical History?: Yes Hx of Cancer: Yes (Lung) Hx COPD: Yes (SOB at rest) Hx Tuberculosis: Yes (Diagnosed 1986 and was treated for 6 months.) Additional medical history: TB in - Social History Smoking Status: Former Smoker - Medications Home Medications: Home Medications Medication Instructions Recorded Confirmed Last Taken Type ALBUTEROL Inhaler (OR & NICU) 2 puff IH QID PRN 30 Days #1 vial 03/15/19 Unknown Rx [Proair] Benzonatate [Tessalon Perles] 200 mg PO Q8HR #14 capsule 03/15/19 Unknown Rx Ipratropium/Albuterol Sulfate 1 ampul IH TIDRT #30 ampul.neb 03/15/19 Unknown Rx [DUONEB *Not for PRN Use*] Temazepam [Restoril] 15 mg PO QHS PRN #7 capsule 03/15/19 Unknown Rx dilTIAZem [Cardizem] 60 mg PO Q6H #120 tablet 03/15/19 Unknown Rx oxyCODONE /ACETAMINOPHEN [Percocet 1 tab PO Q6H PRN #14 tablet 03/15/19 Unknown Rx 5/325 mg] ED Physical Exam - General Limitations: Language Barrier General appearance: alert, in distress - Head Head exam: Present: atraumatic, normocephalic - Eye Eye exam: Present: normal appearance, PERRL, EOMI - ENT ENT exam: Present: mucous membranes moist - Neck Neck exam: Present: normal inspection - Respiratory Respiratory exam: Present: rhonchi, decreased breath sounds (on the right). Absent: normal lung sounds bilaterally, respiratory distress, wheezes, rales - Cardiovascular Cardiovascular Exam: Present: normal rhythm, tachycardia. Absent: systolic murmur, diastolic murmur, rubs, gallop - GI/Abdominal GI/Abdominal exam: Present: soft, normal bowel sounds. Absent: distended, tenderness, guarding, rebound - Rectal Rectal exam: Present: deferred - Extremities Exam Extremities exam: Present: normal inspection - Back Exam Back exam: Present: normal inspection - Neurological Exam Neurological exam: Present: alert, oriented X3 - Psychiatric Psychiatric exam: Present: normal affect, normal mood - Skin Skin exam: Present: warm, dry, intact, normal color. Absent: rash ED Course Vital Signs 04/07/19 04/08/19 04/08/19 23:44 01:29 01:31 Temperature 97.8 F Pulse Rate 115 H 104 H Respiratory 24 18 20 Rate Blood Pressure 121/91 118/90 O2 Sat by Pulse 91 100 100 Oximetry ED Medical Decision Making - Lab Data Result diagrams: 04/07/19 23:47 04/07/19 23:50 Lab Results 04/07/19 04/07/19 04/07/19 Range/Units 23:47 23:47 23:50 WBC 14.8 H (4.5-11.0) K/mm3 RBC 3.03 L (3.65-5.03) M/mm3 Hgb 9.5 L (11.8-15.2) gm/dl Hct 27.7 L (35.5-45.6) % MCV 91 (84-94) fl MCH 31 (28-32) pg MCHC 34 (32-34) % RDW 16.4 H (13.2-15.2) % Plt Count 494 H (140-440) K/mm3 Lymph % (Auto) 12.7 L (13.4-35.0) % [place] % (Auto) 12.1 H (0.0-7.3) % Eos % (Auto) 2.7 (0.0-4.3) % Baso % (Auto) 0.6 (0.0-1.8) % Lymph # 1.9 (1.2-5.4) K/mm3 [place] # 1.8 H (0.0-0.8) K/mm3 Eos # 0.4 (0.0-0.4) K/mm3 Baso # 0.1 (0.0-0.1) K/mm3 Seg Neutrophils % 71.9 H (40.0-70.0) % Seg Neutrophils # 10.7 H (1.8-7.7) K/mm3 PT (12.2-14.9) Sec. INR (0.87-1.13) APTT (24.2-36.6) Sec. D-Dimer (0-234) ng/mlDDU Sodium 142 (137-145) mmol/L Potassium 3.9 (3.6-5.0) mmol/L Chloride 106.1 (98-107) mmol/L Carbon Dioxide 23 (22-30) mmol/L Anion Gap 17 mmol/L BUN 17 (9-20) mg/dL Creatinine 0.5 L (0.8-1.5) mg/dL Estimated GFR > 60 ml/min BUN/Creatinine Ratio 34 % Glucose 142 H (75-100) mg/dL Lactic Acid (0.7-2.0) mmol/L Calcium 8.8 (8.4-10.2) mg/dL Total Bilirubin 0.50 (0.1-1.2) mg/dL AST 31 (5-40) units/L ALT 40 (7-56) units/L Alkaline Phosphatase 468 H (35-129) units/L Troponin T < 0.010 (0.00-0.029) ng/mL NT-Pro-B Natriuret Pep 361.4 (0-900) pg/mL Total Protein 6.7 (6.3-8.2) g/dL Albumin 2.8 L (3.9-5) g/dL Albumin/Globulin Ratio 0.7 % 04/07/19 04/08/19 04/08/19 Range/Units 23:50 01:19 01:19 WBC (4.5-11.0) K/mm3 RBC (3.65-5.03) M/mm3 Hgb (11.8-15.2) gm/dl Hct (35.5-45.6) % MCV (84-94) fl MCH (28-32) pg MCHC (32-34) % RDW (13.2-15.2) % Plt Count (140-440) K/mm3 Lymph % (Auto) (13.4-35.0) % [place] % (Auto) (0.0-7.3) % Eos % (Auto) (0.0-4.3) % Baso % (Auto) (0.0-1.8) % Lymph # (1.2-5.4) K/mm3 [place] # (0.0-0.8) K/mm3 Eos # (0.0-0.4) K/mm3 Baso # (0.0-0.1) K/mm3 Seg Neutrophils % (40.0-70.0) % Seg Neutrophils # (1.8-7.7) K/mm3 PT 15.7 H (12.2-14.9) Sec. INR 1.28 H (0.87-1.13) APTT 36.5 (24.2-36.6) Sec. D-Dimer 4399.55 H (0-234) ng/mlDDU Sodium (137-145) mmol/L Potassium (3.6-5.0) mmol/L Chloride (98-107) mmol/L Carbon Dioxide (22-30) mmol/L Anion Gap mmol/L BUN (9-20) mg/dL Creatinine (0.8-1.5) mg/dL Estimated GFR ml/min BUN/Creatinine Ratio % Glucose (75-100) mg/dL Lactic Acid 1.60 (0.7-2.0) mmol/L Calcium (8.4-10.2) mg/dL Total Bilirubin (0.1-1.2) mg/dL AST (5-40) units/L ALT (7-56) units/L Alkaline Phosphatase (35-129) units/L Troponin T < 0.010 (0.00-0.029) ng/mL NT-Pro-B Natriuret Pep (0-900) pg/mL Total Protein (6.3-8.2) g/dL Albumin (3.9-5) g/dL Albumin/Globulin Ratio % - EKG Data -: EKG Interpreted by Me - EKG Data 04/08/19 03:07 EKG shows a sinus tachycardia 1:15. [place] is normal intervals are normal. No ST segment elevation or depressions. - Radiology Data CHEST 1 VIEW INDICATION: Chest Pain. COMPARISON: 03/13/2019. FINDINGS: Support devices: None. Heart: Normal. Lungs/Pleura: There is persistent complete opacification of the right hemithorax. Left lung remains clear. No pneumothorax. IMPRESSION: 1. Persistent complete opacification of the right hemithorax. Signer Name: Charlie Ornelas MD Signed: 04/08/2019 12:03 AM Workstation Name: [id number] CTA CHEST WITH IV CONTRAST INDICATION: PATIENT STATES HAS LUNG CANCER. D-DIMER 4399.55. TECHNIQUE: Axial CT images were obtained through the chest after injection of IV contrast. 3 plane MIP reconstructions were produced. All CT scans at this location are performed using CT dose reduction for ALARA by means of automated exposure control. COMPARISON: CTA chest 03/05/2019. FINDINGS: Pulmonary Arteries: No pulmonary emboli. Thoracic Aorta: There is a focal plaque along the posterior wall of the proximal descending thoracic aorta (axial image 50) prior. Thoracic aorta is otherwise unremarkable, given contrast timing. Heart: There is a new moderate pericardial effusion. Coronary Arteries: No significant calcification. Lungs: There is complete consolidative change throughout the right lung, this is likely due to complete atelectasis. There is abrupt cut off at the right mainstem bronchus. Emphysematous changes are noted throughout the left lung. There is trace atelectasis in the left lung base. Pleura: There is a small to moderate right pleural effusion, increased since the prior. There is trace left pleural fluid as well. No pneumothorax. Lymph Nodes: No significant adenopathy. Additional Findings: None. Upper Abdomen: No acute findings. Skeletal Structures: No significant osseous abnormality. IMPRESSION: 1. There is complete atelectasis/collapse of the right lung with abrupt cut off of the right mainstem bronchus which may be due to mucous plug or neoplasm. Bronchoscopy is recommended. 2. Small to moderate right pleural effusion, increased in size. 3. Moderate pericardial effusion, new since the prior. 4. No acute PTE is seen. Signer Name: Charlie Ornelas MD Signed: 04/08/2019 2:11 AM Workstation Name: [id number] Transcribed By: DUY Dictated By: Charlie Ornelas MD Electronically Authenticated By: Charlie Ornelas MD Signed Date/Time: 04/08/19 021 - Medical Decision Making Patient's last hospitalization showed that he had a very extensive right sided lung cancer. Patient today showed he is continued to have persistent opacification of the right lung field. Patient is now hypoxic as well. Pain was improved after pain meds given via EMS. Patient has been chest pain-free. Patient was short of breath which is improved with Ventimask. No pulmonary embolus seen on CT. Patient does have elevated white blood cell count and he w as covered for pneumonia. Blood cultures are obtained. Critical Care Time: Yes (40) Critical care attestation.: If time is entered above; I have spent that time in minutes in the direct care of this critically ill patient, excluding procedure time. ED Disposition Clinical Impression: Acute respiratory distress, Hypoxia, Atelectasis of right lung, Chest pain Lung cancer Qualifiers: Laterality: right Lung location: overlapping sites Qualified Code(s): C34.81 - Malignant neoplasm of overlapping sites of right bronchus and lung Disposition: DC09 OP ADMIT IP TO THIS HOSP Is pt being admited?: Yes Does the pt Need Aspirin: No Condition: Stable Instructions: Chest Pain (ED) Time of Disposition: 03:22
--- NOTE | 2019-04-08 03:51 | History and Physical Report ---
<CHAYO ARRIETA - Last Filed: 04/08/19 04:29> History of Present Illness Date of examination: 04/08/19 Date of admission: 04/08/2019 Chief complaint: Difficulty breathing History of present illness: 68-year-old male who is a former smoker with history of COPD, remote history of tuberculosis, newly diagnosed with non-small cell lung carcinoma (03/2019) presents to [facility] ED with complaints of difficulty with breathing. States he has been experiencing increased difficulty breathing for the past 4 days. He also complains of a nonproductive cough. He states that he has increased difficulty breathing with cough. At times he is unable to walk 10 feet without becoming short of breath. He states that he's tried breathing marisabel tment with no relief. Review of chart shows that patient was recently diagnosed with non-small cell lung cancer last month and advised to follow-up with Dr. Haider outpatient. Patient states he was unable to do so due to finances. Denies fever, sputum production, hemoptysis, hematemesis, or headache Past History Past Medical History: cancer (lung cancer diagnosed 03/2019), COPD, other (remote history of TB diagnosis 1986, treated for 6 months, patient had negative AFB 4 in March 2019) Past Surgical History: No surgical history Social history: other (former smoker) Family history: no significant family history Medications and Allergies Allergies Allergy/AdvReac Type Severity Reaction Status Date / Time No Known Allergies Allergy Unverified 03/05/19 17:45 Home Medications Medication Instructions Recorded Confirmed Last Taken Type ALBUTEROL Inhaler (OR & NICU) 2 puff IH QID PRN 30 Days #1 vial 03/15/19 Unknown Rx [Proair] Benzonatate [Tessalon Perles] 200 mg PO Q8HR #14 capsule 03/15/19 Unknown Rx Ipratropium/Albuterol Sulfate 1 ampul IH TIDRT #30 ampul.neb 03/15/19 Unknown Rx [DUONEB *Not for PRN Use*] Temazepam [Restoril] 15 mg PO QHS PRN #7 capsule 03/15/19 Unknown Rx dilTIAZem [Cardizem] 60 mg PO Q6H #120 tablet 03/15/19 Unknown Rx oxyCODONE /ACETAMINOPHEN [Percocet 1 tab PO Q6H PRN #14 tablet 03/15/19 Unknown Rx 5/325 mg] Review of Systems All systems: negative (reviewed and no additional remarkable complaints except as noted below) Constitutional: fatigue Cardiovascular: orthopnea, shortness of breath, dyspnea on exertion Respiratory: cough, shortness of breath, dyspnea on exertion Exam - Physical Exam Narrative exam: Physical exam General appearance: Mild distress, oriented 3, multiple abdominal male - EENT Eyes: Present: PERRL, EOM intact ENT: hearing intact, normal dentition - Neck Neck: Present: supple, normal ROM - Respiratory Respiratory effort: Later, on supplemental oxygen Respiratory: Scattered wheezing throughout with prolonged expiratory phase - Cardiovascular Heart rate:104 (bpm) Rhythm: Sinus tach Heart Sounds: Present: S1 & S2. Absent: rub, click - Extremities Extremities: no ischemia, pulses intact, abnormal () - Peripheral Assessment Peripheral Pulses: within normal limits - Abdominal General gastrointestinal: soft, non-tender, normal bowel sounds - Integumentary Integumentary: Present: warm, dry - Musculoskeletal Musculoskeletal: generalized weakness -Neurological Neurological: CN II-XII intact - Psychiatric Psychiatric: cooperative - Constitutional Vitals: Temp Pulse Resp BP Pulse Ox 97.8 F 104 H 20 118/90 100 04/07/19 23:44 04/08/19 01:29 04/08/19 01:31 04/08/19 01:29 04/08/19 01:31 Results - Labs CBC & Chem 7: 04/07/19 23:47 04/07/19 23:50 Labs: Laboratory Last Values WBC 14.8 K/mm3 (4.5-11.0) H 04/07/19 23:47 RBC 3.03 M/mm3 (3.65-5.03) L 04/07/19 23:47 Hgb 9.5 gm/dl (11.8-15.2) L 04/07/19 23:47 Hct 27.7 % (35.5-45.6) L 04/07/19 23:47 MCV 91 fl (84-94) 04/07/19 23:47 MCH 31 pg (28-32) 04/07/19 23:47 MCHC 34 % (32-34) 04/07/19 23:47 RDW 16.4 % (13.2-15.2) H 04/07/19 23:47 Plt Count 494 K/mm3 (140-440) H 04/07/19 23:47 Lymph % (Auto) 12.7 % (13.4-35.0) L 04/07/19 23:47 [place] % (Auto) 12.1 % (0.0-7.3) H 04/07/19 23:47 Eos % (Auto) 2.7 % (0.0-4.3) 04/07/19 23:47 Baso % (Auto) 0.6 % (0.0-1.8) 04/07/19 23:47 Lymph # 1.9 K/mm3 (1.2-5.4) 04/07/19 23:47 [place] # 1.8 K/mm3 (0.0-0.8) H 04/07/19 23:47 Eos # 0.4 K/mm3 (0.0-0.4) 04/07/19 23:47 Baso # 0.1 K/mm3 (0.0-0.1) 04/07/19 23:47 Seg Neutrophils % 71.9 % (40.0-70.0) H 04/07/19 23:47 Seg Neutrophils # 10.7 K/mm3 (1.8-7.7) H 04/07/19 23:47 PT 15.7 Sec. (12.2-14.9) H 04/07/19 23:50 INR 1.28 (0.87-1.13) H 04/07/19 23:50 APTT 36.5 Sec. (24.2-36.6) 04/07/19 23:50 4399.55 ng/mlDDU (0-234) H 04/07/19 23:50 Sodium 142 mmol/L (137-145) 04/07/19 23:50 Potassium 3.9 mmol/L (3.6-5.0) 04/07/19 23:50 Chloride 106.1 mmol/L (98-107) 04/07/19 23:50 Carbon Dioxide 23 mmol/L (22-30) 04/07/19 23:50 17 mmol/L 04/07/19 23:50 BUN 17 mg/dL (9-20) 04/07/19 23:50 0.5 mg/dL (0.8-1.5) L 04/07/19 23:50 Estimated GFR > 60 ml/min 04/07/19 23:50 34 % 04/07/19 23:50 Glucose 142 mg/dL (75-100) H 04/07/19 23:50 Lactic Acid 1.60 mmol/L (0.7-2.0) 04/08/19 01:19 Calcium 8.8 mg/dL (8.4-10.2) 04/07/19 23:50 0.50 mg/dL (0.1-1.2) 04/07/19 23:50 AST 31 units/L (5-40) 04/07/19 23:50 ALT 40 units/L (7-56) 04/07/19 23:50 468 units/L (35-129) H 04/07/19 23:50 < 0.010 ng/mL (0.00-0.029) 04/08/19 01:19 NT-Pro-B Natriuret Pep 361.4 pg/mL (0-900) 04/07/19 23:47 6.7 g/dL (6.3-8.2) 04/07/19 23:50 2.8 g/dL (3.9-5) L 04/07/19 23:50 0.7 % 04/07/19 23:50 - Imaging and Cardiology Chest x-ray: report reviewed (There is persistent complete opacification of the right hemithorax. Left lung remains), image reviewed Imaging and Cardiology: CT angiogram chest: FINDINGS: Pulmonary Arteries: No pulmonary emboli. Thoracic Aorta: There is a focal plaque along the posterior wall of the proximal descending thoracic aorta (axial image 50) prior. Thoracic aorta is otherwise unremarkable, given contrast timing. Heart: There is a new moderate pericardial effusion. Coronary Arteries: No significant calcification. Lungs: There is complete consolidative change throughout the right lung, this is likely due to complete atelectasis. There is abrupt cut off at the right mainstem bronchus. Emphysematous changes are noted throughout the left lung. There is trace atelectasis in the left lung base. Pleura: There is a small to moderate right pleural effusion, increased since the prior. There is trace left pleural fluid as well. No pneumothorax. Lymph Nodes: No significant adenopathy. Additional Findings: None. Upper Abdomen: No acute findings. Skeletal Structures: No significant osseous abnormality. IMPRESSION: 1. There is complete atelectasis/collapse of the right lung with abrupt cut off of the right mainstem bronchus which may be due to mucous plug or neoplasm. Bronchoscopy is recommended. 2. Small to moderate right pleural effusion, increased in size. 3. Moderate pericardial effusion, new since the prior. 4. No acute PTE is seen. Assessment and Plan Assessment and plan: 68-year-old male who is a former smoker with history of COPD, remote history of tuberculosis, newly diagnosed with non-small cell lung carcinoma (03/2019) presents to [facility] ED with complaints of difficulty with breathing. Cur rently patient is on Venturi mask FiO2 35% 12 L/m with saturation in low to mid 90s. Patient has prolonged expiratory phase with scattered wheezing throughout. CT angiogram negative for PE, but did show new moderate pericardial effusion. We'll admitted for further evaluation and treatment. Acute hypoxic respiratory failure Moderate pericardial effusion- seen on CTA chest 04/07/2019 Non-small cell lung carcinoma-newly diagnosed 03/2019 Acute chest pain Elevated d-dimer Leukocytosis COPD Remote history of TB- 1986 (AFB 4 negative 03/2019; patient has been cleared by ID) History of tobacco abuse Plan: Continue supportive care Cardiology consult Pulmonary consult Head Waiter consult Monitor oxygen saturation Continue the supplemental oxygen and wean as tolerated Scheduled DuoNeb and Pulmicort, albuterol when necessary Start Solu-Medrol 80 mg every 8 hours BC pending Review medical records show patient was to follow-up as outpatient with Dr. Haider regarding diagnosis for non-small cell lung carcinoma, patient has been unable to do so due to finances. We will place social service consult DVT PPX on Lovenox Advance Directives: No VTE prophylaxis?: Chemical Plan of care discussed with patient/family: Yes <JOS CHAVES - Last Filed: 04/08/19 06:30> History of Present Illness Date of admission: 04/08/19 05:29 Medications and Allergies Active Meds: Active Medications Acetaminophen (Tylenol) 650 mg PO Q4H PRN PRN Reason: Pain MILD(1-3)/Fever >100.5/BOO Albuterol (Proventil) 2.5 mg IH Q3HRT PRN PRN Reason: Shortness Of Breath Albuterol/Ipratropium (Duoneb *Not For Prn Use*) 1 ampul IH Q6HRT [facility] Budesonide (Pulmicort) 0.5 mg IH Q12HRT [facility] Enoxaparin Sodium (Lovenox) 40 mg SUB-Q QDAY@1000 [facility] Methylprednisolone Sodium Succinate (Solu-Medrol) 80 mg IV Q8HR [facility] Ondansetron HCl (Zofran) 4 mg IV Q8H PRN PRN Reason: Nausea And Vomiting Oxycodone/Acetaminophen (Percocet 5/325) 1 tab PO Q6H PRN PRN Reason: Pain, Moderate (4-6) Sodium Chloride (Sodium Chloride Flush Syringe 10 Ml) 10 ml IV BID FRANCISCO JAVIER Sodium Chloride (Sodium Chloride Flush Syringe 10 Ml) 10 ml IV PRN PRN PRN Reason: LINE FLUSH Exam - Constitutional Vitals: Temp Pulse Resp BP Pulse Ox 97.8 F 101 H 14 116/82 99 04/07/19 23:44 04/08/19 04:31 04/08/19 04:31 04/08/19 04:31 04/08/19 04:31 Results - Labs CBC & Chem 7: 04/07/19 23:47 04/07/19 23:50 Labs: Laboratory Last Values WBC 14.8 K/mm3 (4.5-11.0) H 04/07/19 23:47 RBC 3.03 M/mm3 (3.65-5.03) L 04/07/19 23:47 Hgb 9.5 gm/dl (11.8-15.2) L 04/07/19 23:47 Hct 27.7 % (35.5-45.6) L 04/07/19 23:47 MCV 91 fl (84-94) 04/07/19 23:47 MCH 31 pg (28-32) 04/07/19 23:47 MCHC 34 % (32-34) 04/07/19 23:47 RDW 16.4 % (13.2-15.2) H 04/07/19 23:47 Plt Count 494 K/mm3 (140-440) H 04/07/19 23:47 Lymph % (Auto) 12.7 % (13.4-35.0) L 04/07/19 23:47 [place] % (Auto) 12.1 % (0.0-7.3) H 04/07/19 23:47 Eos % (Auto) 2.7 % (0.0-4.3) 04/07/19 23:47 Baso % (Auto) 0.6 % (0.0-1.8) 04/07/19 23:47 Lymph # 1.9 K/mm3 (1.2-5.4) 04/07/19 23:47 [place] # 1.8 K/mm3 (0.0-0.8) H 04/07/19 23:47 Eos # 0.4 K/mm3 (0.0-0.4) 04/07/19 23:47 Baso # 0.1 K/mm3 (0.0-0.1) 04/07/19 23:47 Seg Neutrophils % 71.9 % (40.0-70.0) H 04/07/19 23:47 Seg Neutrophils # 10.7 K/mm3 (1.8-7.7) H 04/07/19 23:47 PT 15.7 Sec. (12.2-14.9) H 04/07/19 23:50 INR 1.28 (0.87-1.13) H 04/07/19 23:50 APTT 36.5 Sec. (24.2-36.6) 04/07/19 23:50 4399.55 ng/mlDDU (0-234) H 04/07/19 23:50 Sodium 142 mmol/L (137-145) 04/07/19 23:50 Potassium 3.9 mmol/L (3.6-5.0) 04/07/19 23:50 Chloride 106.1 mmol/L (98-107) 04/07/19 23:50 Carbon Dioxide 23 mmol/L (22-30) 04/07/19 23:50 17 mmol/L 04/07/19 23:50 BUN 17 mg/dL (9-20) 04/07/19 23:50 0.5 mg/dL (0.8-1.5) L 04/07/19 23:50 Estimated GFR > 60 ml/min 04/07/19 23:50 34 % 04/07/19 23:50 Glucose 142 mg/dL (75-100) H 04/07/19 23:50 Lactic Acid 1.70 mmol/L (0.7-2.0) 04/08/19 04:04 Calcium 8.8 mg/dL (8.4-10.2) 04/07/19 23:50 0.50 mg/dL (0.1-1.2) 04/07/19 23:50 AST 31 units/L (5-40) 04/07/19 23:50 ALT 40 units/L (7-56) 04/07/19 23:50 468 units/L (35-129) H 04/07/19 23:50 < 0.010 ng/mL (0.00-0.029) 04/08/19 01:19 NT-Pro-B Natriuret Pep 361.4 pg/mL (0-900) 04/07/19 23:47 6.7 g/dL (6.3-8.2) 04/07/19 23:50 2.8 g/dL (3.9-5) L 04/07/19 23:50 0.7 % 04/07/19 23:50 Assessment and Plan Assessment and plan: 68-year-old male recently diagnosed with COPD, remote history of TB, non-small cell lung cancer grossly emergency room complaining of right-sided chest pain and shortness of breath 2 days. Since discharge he continues to have chest pain due to his lung cancer. He has not followed up with a physician. He rec ently quit smoking, admits to weight loss. CAT scan of his chest shows collapse of the right lung, moderate size right pleural effusion and a moderate pericardial effusion. He is hypoxic on nonrebreather. Agree with plan as stated above, patient seen and examined, d/w [employer].
[2019-04-08] MEDS ORDERED: TYLENOL PO PRN (03:56)
[2019-04-08] MEDS ORDERED: ZOFRAN IV PRN (03:56)
[2019-04-08] MEDS ORDERED: PROVENTIL IH PRN (03:56)
[2019-04-08] MEDS ORDERED: SODIUM CHLORIDE FLUSH SYRINGE 10 ML IV PRN (03:56)
[2019-04-08] MEDS ORDERED: PERCOCET 5/325 ONE (06:39)
[2019-04-08] MEDS: PERCOCET 5/325 PO PRN ×3 (06:47→23:41)
[2019-04-08] MEDS ORDERED: SOLU-Medrol ONE (07:10)
[2019-04-08] MEDS: SOLU-Medrol IV SCH ×3 (07:16→20:40)
[2019-04-08] MEDS: DUONEB *Not for PRN Use IH SCH ×3 (08:42→21:36)
[2019-04-08] MEDS: PULMICORT IH SCH ×2 (08:42→21:36)
--- NOTE | 2019-04-08 09:33 | Consultation ---
History of Present Illness Consult date: 04/08/19 Requesting physician: CHAYO ARRIETA Consult reason: shortness of breath History of present illness: Mr. 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 He is previously unknown to our practice. He reports being unable to walk minimal distances without be coming SOB. After his cancer diagnosis in March, follow-up with Dr. Haider was recommended; however, he was not able to do so d/t financial limitations. A d- dimer was positive and subsequently, a CTA was negative for PE, but significant for a right lung collapse/atelectasis d/t mucus plug or neoplasm, a [id number] right-sided pleural effusion and a new moderately-sized pericardial effusion. EKG unremarkable, BNP not significantly elevated and troponins negative. An echo on 03/13 found an LVEF of 55 to 60 percent and no pericardial effusion. Past History Past Medical History: cancer (lung cancer diagnosed 03/2019), COPD, other (remote history of TB diagnosis 1986, treated for 6 months, patient had negative AFB 4 in March 2019) Past Surgical History: No surgical history Social history: other (former smoker) Family history: no significant family history Medications and Allergies Allergies Allergy/AdvReac Type Severity Reaction Status Date / Time No Known Allergies Allergy Unverified 03/05/19 17:45 Home Medications Medication Instructions Recorded Confirmed Last Taken Type ALBUTEROL Inhaler (OR & NICU) 2 puff IH QID PRN 30 Days #1 vial 03/15/19 Unknown Rx [Proair] Benzonatate [Tessalon Perles] 200 mg PO Q8HR #14 capsule 03/15/19 Unknown Rx Ipratropium/Albuterol Sulfate 1 ampul IH TIDRT #30 ampul.neb 03/15/19 Unknown Rx [DUONEB *Not for PRN Use*] Temazepam [Restoril] 15 mg PO QHS PRN #7 capsule 03/15/19 Unknown Rx dilTIAZem [Cardizem] 60 mg PO Q6H #120 tablet 03/15/19 Unknown Rx oxyCODONE /ACETAMINOPHEN [Percocet 1 tab PO Q6H PRN #14 tablet 03/15/19 Unknown Rx 5/325 mg] Active Meds: Active Medications Acetaminophen (Tylenol) 650 mg PO Q4H PRN PRN Reason: Pain MILD(1-3)/Fever >100.5/BOO Albuterol (Proventil) 2.5 mg IH Q3HRT PRN PRN Reason: Shortness Of Breath Albuterol/Ipratropium (Duoneb *Not For Prn Use*) 1 ampul IH Q6HRT [facility] Last Admin: 04/08/19 08:42 Dose: Not Given Documented by: Budesonide (Pulmicort) 0.5 mg IH Q12HRT [facility] Last Admin: 04/08/19 08:42 Dose: Not Given Documented by: Enoxaparin Sodium (Lovenox) 40 mg SUB-Q QDAY@1000 FRANCISCO JAVIER Methylprednisolone Sodium Succinate (Solu-Medrol) 80 mg IV Q8HR [facility] Last Admin: 04/08/19 07:16 Dose: 80 mg Documented by: Ondansetron HCl (Zofran) 4 mg IV Q8H PRN PRN Reason: Nausea And Vomiting Oxycodone/Acetaminophen (Percocet 5/325) 1 tab PO Q6H PRN PRN Reason: Pain, Moderate (4-6) Last Admin: 04/08/19 06:47 Dose: 1 tab Documented by: Sodium Chloride (Sodium Chloride Flush Syringe 10 Ml) 10 ml IV BID [facility] Sodium Chloride (Sodium Chloride Flush Syringe 10 Ml) 10 ml IV PRN PRN PRN Reason: LINE FLUSH Review of Systems All systems: negative Respiratory: shortness of breath Physical Examination Last Vital Signs Temp 97.8 F 04/07/19 23:44 Pulse 102 H 04/08/19 06:45 Resp 19 04/08/19 06:45 BP 113/81 04/08/19 06:45 Pulse Ox 96 04/08/19 06:45 General appearance: severe distress (supplemental oxygen via face mask) HEENT: Positive: PERRL Neck: Positive: neck supple Cardiac: Positive: Regular Rhythm Lungs: Positive: Decreased Breath Sounds (right side), Wheezes Neuro: Positive: Grossly Intact Abdomen: Positive: Unremarkable Male genitourinary: Positive: deferred Skin: Positive: Clear Musculoskeletal: Normal Range of Motion Extremities: Present: normal Results 04/07/19 23:47 04/07/19 23:50 Cardiac Enzymes 04/07/19 Range/Units 23:50 AST 31 (5-40) units/L Coagulation 04/07/19 Range/Units 23:50 PT 15.7 H (12.2-14.9) Sec. INR 1.28 H (0.87-1.13) APTT 36.5 (24.2-36.6) Sec. CBC 04/07/19 Range/Units 23:47 WBC 14.8 H (4.5-11.0) K/mm3 RBC 3.03 L (3.65-5.03) M/mm3 Hgb 9.5 L (11.8-15.2) gm/dl Hct 27.7 L (35.5-45.6) % Plt Count 494 H (140-440) K/mm3 Lymph # 1.9 (1.2-5.4) K/mm3 [place] # 1.8 H (0.0-0.8) K/mm3 Eos # 0.4 (0.0-0.4) K/mm3 Baso # 0.1 (0.0-0.1) K/mm3 Comprehensive Metabolic Panel 04/07/19 Range/Units 23:50 Sodium 142 (137-145) mmol/L Potassium 3.9 (3.6-5.0) mmol/L Chloride 106.1 (98-107) mmol/L Carbon Dioxide 23 (22-30) mmol/L BUN 17 (9-20) mg/dL Creatinine 0.5 L (0.8-1.5) mg/dL Glucose 142 H (75-100) mg/dL Calcium 8.8 (8.4-10.2) mg/dL AST 31 (5-40) units/L ALT 40 (7-56) units/L Alkaline Phosphatase 468 H (35-129) units/L Total Protein 6.7 (6.3-8.2) g/dL Albumin 2.8 L (3.9-5) g/dL - Imaging and Cardiology Echo: report reviewed (03/2019: LVEF of 55 to 60%, no pericardial effusion) EKG interpretations - Telemetry EKG Rhythm: Sinus Tachycardia - EKG Sinus rhythms and dysrhythmias: sinus tachycardia Assessment and Plan The patient is a 68 y/o male with a history significant for COPD, past tobacco use and 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 A CTA of the chest revealed right lung collapse, a moderately-sized pericardial effusion and a [id number] right-sided pleural effusion. Etiology of his breathing difficulty seems predominantly r/t lung neoplasm. Will obtain limited echo to further evaluate pericardial effusion. Further recommendations to follow. The patient has been seen in conjunction with Dr. Sanabria, who agrees with assessment and plan. - Patient Problems (1) Acute respiratory distress Current Visit: Yes Status: Acute (2) Atelectasis of right lung Current Visit: Yes Status: Acute (3) Pericardial effusion without cardiac tamponade Current Visit: Yes Status: Acute (4) Pleural effusion Current Visit: Yes Status: Acute (5) Lung cancer Current Visit: Yes Status: Chronic Qualifiers: Laterality: right Lung location: overlapping sites Qualified Code(s): C34.81 - Malignant neoplasm of overlapping sites of right bronchus and lung (6) History of TB (tuberculosis) Current Visit: No Status: Chronic
[2019-04-08] MEDS ORDERED: LOVENOX SUB-Q ONE (09:41)
[2019-04-08] MEDS: LOVENOX SUB-Q SCH (09:42)
[2019-04-08] MEDS: SODIUM CHLORIDE FLUSH SYRINGE 10 ML IV SCH ×2 (09:42→20:40)
[2019-04-08] MEDS ORDERED: LOVENOX SUB-Q SCH (10:00)
[2019-04-08] MEDS: MORPHINE IV PRN ×3 (11:52→22:12)
--- NOTE | 2019-04-08 14:21 | Event Note ---
Date: 04/08/19 This is a follow up of an admission earlier this am. Pt seen and examined. Chart reviewed. Pt with decompensation and worsening acute repiratory failure. Pt placed on BiPAP. F/U ABG. We will continue the rest of the plan as outlined in the H and P. Appreciate Cardiology consult. Await Pulm/critical care consult. The high probability of a clinically significant, sudden or life threatening deterioration of the [respiratory] system(s) required my full and direct attention, intervention and personal management. The aggregate critical care time was [32] minutes. This time is in addition to time spent performing reported procedures but includes the following: [x] Data Review and interpretation [x] Patient assessment and monitoring of vital signs [x] Documentation [x] Medication orders and management
--- NOTE | 2019-04-08 19:19 | Event Note ---
Date: 04/08/19 [id number]
[2019-04-09] MEDS: DUONEB *Not for PRN Use IH SCH ×4 (02:24→20:48)
[2019-04-09] MEDS: MORPHINE IV PRN ×2 (03:57→08:21)
[2019-04-09 04:37] LABS: Hematocrit 33.1 % (35.5-45.6); Hemoglobin 10.8 gm/dl (11.8-15.2); Mean Corpuscular HGB Conc 33 % (32-34); Mean Corpuscular Volume 94 fl (84-94); Platelet Count 263 K/mm3 (140-440); Red Blood Count 3.52 M/mm3 (3.65-5.03); Red Cell Distribution Width 16.8 % (13.2-15.2)
[2019-04-09 04:58] LABS: BUN/Creatinine Ratio 36; Blood Urea Nitrogen 18 mg/dL (9-20); Calcium 9.8 mg/dL (8.4-10.2); Hemolysis Index 7
[2019-04-09] MEDS: PERCOCET 5/325 PO PRN (05:43)
[2019-04-09] MEDS: SOLU-Medrol IV SCH ×3 (05:44→16:57)
--- NOTE | 2019-04-09 06:07 | Hem/Onc Progress Note ---
Assessment and Plan Non-small cell lung cancer of - adenocarcinoma. The patient came in with shortness of breath and chest pain. The patient has no insurance. He would need eGFR testing and other targeted agents testing and he would also need outpatienta followup. History of chronic obstructive pulmonary disease, on Rx. We will look into palliative radiation evaluation. - Patient Problems (1) Lung cancer Current Visit: Yes Status: Chronic Qualifiers: Laterality: right Lung location: overlapping sites Qualified Code(s): C3 4.81 - Malignant neoplasm of overlapping sites of right bronchus and lung Subjective Date of service: 04/09/19 Principal diagnosis: lung ca Interval history: SOB Objective - Exam Narrative Exam: Pain - none General appearance distress - SOB Performance status limited self care Eyes - no icterus ENT no thrush LNs cervical not palpable Neck - normal ROM Respiratory Normal Breath sounds - decreased air entry CVS S1 S2 + Extremities normal temperature General GI Soft Rectal deferred male - deferred Skin warm Musculoskeletal moving normal Neurologically no focal deficit - Constitutional Vitals: Last Vital Signs Temp 98.4 F 04/09/19 04:00 Pulse 121 H 04/09/19 04:00 Resp 21 04/09/19 04:00 BP 128/90 04/09/19 00:51 Pulse Ox 97 04/09/19 04:00 - Labs Lab Results: Laboratory Results - last 24 hr 04/08/19 04/09/19 04/09/19 21:07 03:42 03:42 WBC 19.9 H RBC 3.52 L Hgb 10.8 L Hct 33.1 L MCV 94 MCH 31 MCHC 33 RDW 16.8 H Plt Count 263 Seg Neutrophils % Steel Analyst POC ABG pH 7.347 L POC ABG pCO2 51.0 H POC ABG pO2 308 H POC ABG HCO3 28.0 POC ABG Total CO2 29 POC ABG O2 Sat 100 POC ABG Base Excess 2 FiO2 100 Sodium 142 Potassium 4.7 D Chloride 103.1 Carbon Dioxide 27 Anion Gap 17 BUN 18 Creatinine 0.5 L Estimated GFR > 60 BUN/Creatinine Ratio 36 Glucose 162 H Calcium 9.8 Medications & Allergies - Medications Allergies/Adverse Reactions: Allergies No Known Allergies Allergy (Unverified 03/05/19 17:45) Home Medications: Home Medications Medication Instructions Recorded Confirmed Last Taken Type ALBUTEROL Inhaler (OR & NICU) 2 puff IH QID PRN 30 Days #1 vial 03/15/19 04/08/19 Unknown Rx [Proair] RX: Benzonatate [Tessalon Perles] 200 mg PO Q8HR #14 capsule 03/15/19 04/08/19 Unknown Rx RX: Ipratropium/Albuterol Sulfate 1 ampul IH TIDRT #30 ampul.neb 03/15/19 04/08/19 Unknown Rx [DUONEB *Not for PRN Use*] RX: Temazepam [Restoril] 15 mg PO QHS PRN #7 capsule 03/15/19 04/08/19 Unknown Rx RX: dilTIAZem [Cardizem] 60 mg PO Q6H #120 tablet 03/15/19 04/08/19 Unknown Rx RX: oxyCODONE /ACETAMINOPHEN 1 tab PO Q6H PRN #14 tablet 03/15/19 04/08/19 Unknown Rx [Percocet 5/325 mg] Active Medications: Generic Name Dose Route Start Last Admin Trade Name Freq PRN Reason Stop Dose Admin Acetaminophen 650 mg 04/08/19 03:56 Tylenol PO Q4H PRN Pain MILD(1-3)/Fever >100.5/BOO Albuterol 2.5 mg 04/08/19 03:56 Proventil IH Q3HRT PRN Shortness Of Breath Albuterol/Ipratropium 1 ampul 04/08/19 08:00 04/09/19 02:24 Duoneb *Not For Prn Use* IH 1 ampul Q6HRT FRANCISCO JAVIER Administration Budesonide 0.5 mg 04/08/19 08:00 04/08/19 21:36 Pulmicort IH 0.5 mg Q12HRT FRANCISCO JAVIER Administration Enoxaparin Sodium 40 mg 04/08/19 10:00 04/08/19 09:42 Lovenox SUB-Q 40 mg QDAY@1000 FRANCISCO JAVIER Administration Methylprednisolone Sodium Succinate 80 mg 04/08/19 06:00 04/09/19 05:44 Solu-Medrol IV 80 mg Q8HR FRANCISCO JAVIER Administration Morphine Sulfate 2 mg 04/08/19 11:14 04/09/19 03:57 Morphine IV 2 mg Q4H PRN Administration Pain , Severe (7-10) Ondansetron HCl 4 mg 04/08/19 03:56 Zofran IV Q8H PRN Nausea And Vomiting Oxycodone/Acetaminophen 1 tab 04/08/19 03:56 04/09/19 05:43 Percocet 5/325 PO 1 tab Q6H PRN Administration Pain, Moderate (4-6) Sodium Chloride 10 ml 04/08/19 10:00 04/08/19 20:40 Sodium Chloride Flush Syringe 10 Ml IV 10 ml BID FRANCISCO JAVIER Administration Sodium Chloride 10 ml 04/08/19 03:56 04/08/19 22:15 Sodium Chloride Flush Syringe 10 Ml IV 10 ml PRN PRN Administration LINE FLUSH
[2019-04-09 07:07] LABS: Total Cells Counted 100
[2019-04-09 07:08] LABS: Basophils % (Manual) 0 % (0.0-1.8); Eosinophils % (Manual) 0 % (0.0-4.3); Myelocytes # (Manual) 0.2 K/mm3; Platelet Estimate Consistent w Auto; RBC Morphology Normal
--- NOTE | 2019-04-09 07:20 | Consultation ---
REFERRING PHYSICIAN: Dr. Head. REASON FOR CONSULTATION: Lung cancer. HISTORY OF PRESENT ILLNESS: I saw the patient, a 68-year-old male with history of recently diagnosed non-small cell lung cancer in 03/2019, COPD, history of TB, came to the hospital because of pain and shortness of breath. I had seen him in March in the hospital. At that time, CT chest had shown right lung mass. He underwent bronchoscopy and biopsy, which showed non-small cell lung cancer. The mass was 13 cm. This was encasing the bronchial veins pulmonary artery and bronchi on the right. The patient was discharged. He had come to the clinic, but could not afford the doctor's visit payment and he went home. He came back to the hospital this time for his chest pain and shortness of breath. No fevers, no hemoptysis. No hematemesis, no headache, no abdominal pain, no vomiting, no diarrhea, no dysuria. PAST MEDICAL HISTORY: As above. SOCIAL HISTORY: Former smoker. PAST SURGICAL HISTORY: None. FAMILY HISTORY: Noncontributory. ALLERGIES: None. HOME MEDICATIONS: Include temazepam, diltiazem, and oxycodone. PHYSICAL EXAMINATION: VITAL SIGNS: Temperature 96.5, pulse 105, respiration 26, BP 137/97. HEENT: Pallor present. NECK: No neck lymph nodes. HEART: S1, S2. LUNGS: Decreased air entry. ABDOMEN: Soft. EXTREMITIES: No calf tenderness. NEUROLOGIC: Alert, awake. LABORATORY DATA: White cell 14, hemoglobin 9.5, MCV 91 and platelets 494. D-dimer is elevated. Potassium is 3.9, creatinine 0.5 and calcium 8.8. RADIOLOGY: CT of the chest during this admission showed atelectasis of the right lung. ASSESSMENT AND PLAN: Non-small cell lung cancer of ____ adenocarcinoma. The patient came in with shortness of breath and chest pain. The patient has no insurance. We will look into palliative radiation evaluation. He would need eGFR testing and other targeted agents testing and he would also need outpatient followup. History of chronic obstructive pulmonary disease, on supportive care. JOB# [id number] NM/NTS
[2019-04-09] MEDS ORDERED: ATIVAN IV ONE ×2 (08:05→14:45)
[2019-04-09] MEDS ORDERED: DUONEB *Not for PRN Use IH ONE ×2 (08:25→14:25)
[2019-04-09] MEDS: PULMICORT IH SCH ×2 (08:41→20:46)
--- NOTE | 2019-04-09 10:28 | Progress Note ---
Assessment and Plan Assessment and plan: Difficulty breathing History of present illness: 68-year-old male who is a former smoker with history of COPD, remote history of tuberculosis, newly diagnosed with non-small cell lung carcinoma (03/2019) presents to [facility] ED with complaints of difficulty with breathing, [place] and cough Review of chart shows that patient was recently diagnosed with non-small cell lung cancer last month and advised to follow-up with Dr. Haider outpatient. Patient states he was unable to do so due to finances. Past History Past Medical History: cancer (lung cancer diagnosed 03/2019), COPD, other (remote history of TB diagnosis 1986, treated for 6 months, patient had negative AFB 4 in March 2019) CTA chest; 1. There is complete atelectasis/collapse of the right lung with abrupt cut off of the right mainstem bronchus which may be due to mucous plug or neoplasm. Bronchoscopy is recommended. 2. Small to moderate right pleural effusion, increased in size. 3. Moderate pericardial effusion, new since the prior. 4. No acute PTE is seen. Acute hypoxic respiratory failure/Right lung collapse/ COPD flare ; cont high flow oxygen, steroids and nebs, pulm to see pt, about possible bronch Agitation/anxiety; Ativan as needed Moderate pericardial effusion- seen on CTA chest 04/07/2019; chest pain Cardiology input appreciated, there is a moderate size pericardial effusion without tamponade not, follow-up echo Non-small cell lung carcinoma-newly diagnosed 03/2019 oncologist consult pending SIRS; no evidence of infection at this time BC pending Remote history of TB- 1986 (AFB 4 negative 03/2019; patient has been cleared by ID) History of tobacco abuse -pharmacy services director consult place due to financial limitations with treatments DVT PPX on Lovenox Critical care time 35 minutes History Interval history: Patient continues to have shortness of breath and cough His fever Has been anxious and agitated No vomiting or seizures, no chest pain Hospitalist Physical - Physical exam Narrative exam: General.: severe resp distress, nontoxic HEENT: Moist mucous membranes, extraocular muscles intact, no lymphadenopathy Neck: supple Cardiac: S1-S2 heard Lungs: Severely decreased air entry, dull on right Abdomen: soft , nontender, nondistended, bowel sounds positive Extremities: no edema clubbing or cyanosis Skin: no rash or lesions Neurologic: no gross focal deficits Psych: calm, and cooperative - Constitutional Vitals: Temp Pulse Resp BP Pulse Ox 98.4 F 118 H 18 128/90 92 04/09/19 04:00 04/09/19 08:43 04/09/19 08:43 04/09/19 00:51 04/09/19 08:00 General appearance: Present: severe distress (supplemental oxygen via face mask) Results - Labs CBC & Chem 7: 04/09/19 03:42 04/09/19 03:42 Labs: Laboratory Last Values WBC 19.9 K/mm3 (4.5-11.0) H 04/09/19 03:42 RBC 3.52 M/mm3 (3.65-5.03) L 04/09/19 03:42 Hgb 10.8 gm/dl (11.8-15.2) L 04/09/19 03:42 Hct 33.1 % (35.5-45.6) L 04/09/19 03:42 MCV 94 fl (84-94) 04/09/19 03:42 MCH 31 pg (28-32) 04/09/19 03:42 MCHC 33 % (32-34) 04/09/19 03:42 RDW 16.8 % (13.2-15.2) H 04/09/19 03:42 Plt Count 263 K/mm3 (140-440) 04/09/19 03:42 Lymph % (Auto) 12.7 % (13.4-35.0) L 04/07/19 23:47 [place] % (Auto) 12.1 % (0.0-7.3) H 04/07/19 23:47 Eos % (Auto) 2.7 % (0.0-4.3) 04/07/19 23:47 Baso % (Auto) 0.6 % (0.0-1.8) 04/07/19 23:47 Lymph # 1.9 K/mm3 (1.2-5.4) 04/07/19 23:47 [place] # 1.8 K/mm3 (0.0-0.8) H 04/07/19 23:47 Eos # 0.4 K/mm3 (0.0-0.4) 04/07/19 23:47 Baso # 0.1 K/mm3 (0.0-0.1) 04/07/19 23:47 Add Manual Diff Complete 04/09/19 03:42 Total Counted 100 04/09/19 03:42 Seg Neutrophils % Shank Inspector 04/09/19 03:42 Seg Neuts % (Manual) 94.0 % (40.0-70.0) H 04/09/19 03:42 0 % 04/09/19 03:42 3.0 % (13.4-35.0) L 04/09/19 03:42 Reactive Lymphs % (Man) 0 % 04/09/19 03:42 2.0 % (0.0-7.3) 04/09/19 03:42 0 % (0.0-4.3) 04/09/19 03:42 0 % (0.0-1.8) 04/09/19 03:42 0 % 04/09/19 03:42 1.0 % 04/09/19 03:42 0 % 04/09/19 03:42 0 % 04/09/19 03:42 Nucleated RBC % 1.0 % (0.0-0.9) H 04/09/19 03:42 Seg Neutrophils # 10.7 K/mm3 (1.8-7.7) H 04/07/19 23:47 Seg Neutrophils # Man 18.7 K/mm3 (1.8-7.7) H 04/09/19 03:42 Band Neutrophils # 0.0 K/mm3 04/09/19 03:42 0.6 K/mm3 (1.2-5.4) L 04/09/19 03:42 Abs React Lymphs (Man) 0.0 K/mm3 04/09/19 03:42 0.4 K/mm3 (0.0-0.8) 04/09/19 03:42 0.0 K/mm3 (0.0-0.4) 04/09/19 03:42 0.0 K/mm3 (0.0-0.1) 04/09/19 03:42 0.0 K/mm3 04/09/19 03:42 0.2 K/mm3 04/09/19 03:42 0.0 K/mm3 04/09/19 03:42 Blast Cells # 0.0 K/mm3 04/09/19 03:42 WBC Morphology Not Reportable 04/09/19 03:42 Hypersegmented Neuts Not Reportable 04/09/19 03:42 Hyposegmented Neuts Not Reportable 04/09/19 03:42 Hypogranular Neuts Not Reportable 04/09/19 03:42 Not Reportable 04/09/19 03:42 Not Reportable 04/09/19 03:42 Not Reportable 04/09/19 03:42 Not Reportable 04/09/19 03:42 Not Reportable 04/09/19 03:42 Not Reportable 04/09/19 03:42 Consistent w auto 04/09/19 03:42 Not Reportable 04/09/19 03:42 Plt Clumps, EDTA Not Reportable 04/09/19 03:42 Not Reportable 04/09/19 03:42 Not Reportable 04/09/19 03:42 Not Reportable 04/09/19 03:42 Plt Morphology Comment Not Reportable 04/09/19 03:42 RBC Morphology Normal 04/09/19 03:42 Dimorphic RBCs Not Reportable 04/09/19 03:42 Not Reportable 04/09/19 03:42 Not Reportable 04/09/19 03:42 Not Reportable 04/09/19 03:42 Not Reportable 04/09/19 03:42 Not Reportable 04/09/19 03:42 Not Reportable 04/09/19 03:42 Not Reportable 04/09/19 03:42 Not Reportable 04/09/19 03:42 Not Reportable 04/09/19 03:42 Not Reportable 04/09/19 03:42 Not Reportable 04/09/19 03:42 Not Reportable 04/09/19 03:42 Not Reportable 04/09/19 03:42 Not Reportable 04/09/19 03:42 Not Reportable 04/09/19 03:42 Not Reportable 04/09/19 03:42 Not Reportable 04/09/19 03:42 Not Reportable 04/09/19 03:42 Not Reportable 04/09/19 03:42 Acanthocytes (Spur) Not Reportable 04/09/19 03:42 Rouleaux Not Reportable 04/09/19 03:42 Not Reportable 04/09/19 03:42 Not Reportable 04/09/19 03:42 Not Reportable 04/09/19 03:42 Not Reportable 04/09/19 03:42 Hem Pathologist Commnt No 04/09/19 03:42 PT 15.7 Sec. (12.2-14.9) H 04/07/19 23:50 INR 1.28 (0.87-1.13) H 04/07/19 23:50 APTT 36.5 Sec. (24.2-36.6) 04/07/19 23:50 4399.55 ng/mlDDU (0-234) H 04/07/19 23:50 POC ABG pH 7.347 (7.35-7.45) L 04/08/19 21:07 POC ABG pCO2 51.0 (35-45) H 04/08/19 21:07 POC ABG pO2 308 (80-105) H 04/08/19 21:07 POC ABG HCO3 28.0 (22-26 mml/L) 04/08/19 21:07 POC ABG Total CO2 29 (23-27mmol/L) 04/08/19 21:07 POC ABG O2 Sat 100 04/08/19 21:07 POC ABG Base Excess 2 ((-2) - (+3)mmol/L) 04/08/19 21:07 100 % 04/08/19 21:07 Sodium 142 mmol/L (137-145) 04/09/19 03:42 Potassium 4.7 mmol/L (3.6-5.0) D 04/09/19 03:42 Chloride 103.1 mmol/L (98-107) 04/09/19 03:42 Carbon Dioxide 27 mmol/L (22-30) 04/09/19 03:42 17 mmol/L 04/09/19 03:42 BUN 18 mg/dL (9-20) 04/09/19 03:42 0.5 mg/dL (0.8-1.5) L 04/09/19 03:42 Estimated GFR > 60 ml/min 04/09/19 03:42 36 % 04/09/19 03:42 Glucose 162 mg/dL (75-100) H 04/09/19 03:42 Lactic Acid 1.70 mmol/L (0.7-2.0) 04/08/19 04:04 Calcium 9.8 mg/dL (8.4-10.2) 04/09/19 03:42 0.50 mg/dL (0.1-1.2) 04/07/19 23:50 AST 31 units/L (5-40) 04/07/19 23:50 ALT 40 units/L (7-56) 04/07/19 23:50 468 units/L (35-129) H 04/07/19 23:50 < 0.010 ng/mL (0.00-0.029) 04/08/19 01:19 NT-Pro-B Natriuret Pep 361.4 pg/mL (0-900) 04/07/19 23:47 6.7 g/dL (6.3-8.2) 04/07/19 23:50 2.8 g/dL (3.9-5) L 04/07/19 23:50 0.7 % 04/07/19 23:50 Active Medications - Current Medications Current Medications: Generic Name Dose Route Start Last Admin Trade Name Freq PRN Reason Stop Dose Admin Acetaminophen 650 mg 04/08/19 03:56 Tylenol PO Q4H PRN Pain MILD(1-3)/Fever >100.5/BOO Albuterol 2.5 mg 04/08/19 03:56 Proventil IH Q3HRT PRN Shortness Of Breath Albuterol/Ipratropium 1 ampul 04/08/19 08:00 04/09/19 08:41 Duoneb *Not For Prn Use* IH Not Given Q6HRT FRANCISCO JAVIER Benzonatate 200 mg 04/09/19 14:00 Tessalon Perles PO Q8HR FRANCISCO JAVIER Budesonide 0.5 mg 04/08/19 08:00 04/09/19 08:41 Pulmicort IH 0.5 mg Q12HRT FRANCISCO JAVIER Administration Diltiazem HCl 60 mg 04/09/19 11:00 Cardizem PO Q6H FRANCISCO JAVIER Enoxaparin Sodium 40 mg 04/08/19 10:00 04/08/19 09:42 Lovenox SUB-Q 40 mg QDAY@1000 FRANCISCO JAVIER Administration Lorazepam 1 mg 04/09/19 10:20 Ativan IV Q4H PRN Agitation Methylprednisolone Sodium Succinate 80 mg 04/08/19 06:00 04/09/19 05:44 Solu-Medrol IV 80 mg Q8HR FRANCISCO JAVIER Administration Morphine Sulfate 2 mg 04/08/19 11:14 04/09/19 08:21 Morphine IV 2 mg Q4H PRN Administration Pain , Severe (7-10) Ondansetron HCl 4 mg 04/08/19 03:56 Zofran IV Q8H PRN Nausea And Vomiting Oxycodone/Acetaminophen 1 tab 04/08/19 03:56 04/09/19 05:43 Percocet 5/325 PO 1 tab Q6H PRN Administration Pain, Moderate (4-6) Sodium Chloride 10 ml 04/08/19 10:00 04/08/19 20:40 Sodium Chloride Flush Syringe 10 Ml IV 10 ml BID FRANCISCO JAVIER Administration Sodium Chloride 10 ml 04/08/19 03:56 04/08/19 22:15 Sodium Chloride Flush Syringe 10 Ml IV 10 ml PRN PRN Administration LINE FLUSH
[2019-04-09] MEDS: TESSALON PERLES PO SCH ×2 (10:51→20:16)
[2019-04-09] MEDS: LOVENOX SUB-Q SCH (10:51)
[2019-04-09] MEDS: SODIUM CHLORIDE FLUSH SYRINGE 10 ML IV SCH ×2 (10:52→22:17)
[2019-04-09] MEDS: CARDIZEM PO SCH ×3 (10:52→23:17)
[2019-04-09] MEDS: ATIVAN IV PRN ×2 (12:01→20:00)
[2019-04-09] MEDS ORDERED: PROAIR IH PRN (13:01)
--- NOTE | 2019-04-09 13:46 | XRay Report ---
CHEST 1 VIEW 1:32 PM INDICATION / CLINICAL INFORMATION: Shortness of breath. COMPARISON: 04/07/2019. FINDINGS: SUPPORT DEVICES: None. HEART / MEDIASTINUM: Unchanged. LUNGS / PLEURA: Complete opacification of the right lung is stable. There is moderate diffuse interst itial lung disease on the left which has increased significantly. No pneumothorax. ADDITIONAL FINDINGS: No significant additional findings. IMPRESSION: 1. Complete opacification of the right hemithorax has not changed. 2. Increasing diffuse parenchymal disease in the left lung may be related to interstitial edema or in terstitial pneumonia. Signer Name: Kevin Bustillo MD Signed: 04/09/2019 1:42 PM Workstation Name: [id number]
--- NOTE | 2019-04-09 13:53 | Progress Note ---
Assessment and Plan Patient remains in respiratory distress, likely driven by lung neoplasm. Tachycardia likely r/t labored breathing. Will order daily Lasix for now and evaluate effect on respiratory status. The patient has been seen in conjunction with Dr. Sanabria, who agrees with assessment and plan. - Patient Problems (1) Acute respiratory distress Current Visit: Yes Status: Acute (2) Atelectasis of right lung Current Visit: Yes Status: Acute (3) Pericardial effusion without cardiac tamponade Current Visit: Yes Status: Acute (4) Pleural effusion Current Visit: Yes Status: Acute (5) Lung cancer Current Visit: Yes Status: Chronic Qualifiers: Laterality: right Lung location: overlapping sites Qualified Code(s): C34.81 - Malignant neoplasm of overlapping sites of right bronchus and lung (6) History of TB (tuberculosis) Current Visit: No Status: Chronic Subjective Date of service: 04/09/19 Principal diagnosis: lung ca Interval history: Patient sitting up in bed in moderate distress. He is now on hi-flow oxygen, but has required BiPAP. Given Lasix x1. ST in 120s on telemetry. Objective Last Vital Signs Temp 98.4 F 04/09/19 04:00 Pulse 125 H 04/09/19 12:48 Resp 21 04/09/19 12:48 BP 123/82 04/09/19 10:52 Pulse Ox 93 04/09/19 12:48 - Physical Examination General: Other (Respiratory distress) HEENT: Positive: PERRL Neck: Positive: neck supple Cardiac: Positive: Regular Rhythm Lungs: Positive: Decreased Breath Sounds, Rhonchi (right side) Neuro: Positive: Grossly Intact Abdomen: Positive: Unremarkable Skin: Positive: Clear Musculoskeletal: Normal Range of Motion Extremities: Present: normal - Labs and Meds CBC 04/09/19 Range/Units 03:42 WBC 19.9 H (4.5-11.0) K/mm3 RBC 3.52 L (3.65-5.03) M/mm3 Hgb 10.8 L (11.8-15.2) gm/dl Hct 33.1 L (35.5-45.6) % Plt Count 263 (140-440) K/mm3 Comprehensive Metabolic Panel 04/09/19 Range/Units 03:42 Sodium 142 (137-145) mmol/L Potassium 4.7 D (3.6-5.0) mmol/L Chloride 103.1 (98-107) mmol/L Carbon Dioxide 27 (22-30) mmol/L BUN 18 (9-20) mg/dL Creatinine 0.5 L (0.8-1.5) mg/dL Glucose 162 H (75-100) mg/dL Calcium 9.8 (8.4-10.2) mg/dL - Imaging and Cardiology Echo: report reviewed (03/2019: LVEF of 55 to 60%, no pericardial effusion) - EKG Sinus rhythms and dysrhythmias: sinus tachycardia
[2019-04-09] MEDS ORDERED: LASIX IV ONE (14:00)
--- NOTE | 2019-04-09 15:25 | Consultation ---
History of Present Illness Consult date: 04/09/19 Requesting physician: KAREN SY History of present illness: PULMONARY/CCM CONSULT NOTE (Full dictation # [id number]) Please see dictated notes for full details Past History Past Medical History: cancer (lung cancer diagnosed 03/2019), COPD, other (remote history of TB diagnosis 1986, treated for 6 months, patient had negative AFB 4 in March 2019) Past Surgical History: No surgical history Social history: other (former smoker) Family history: no significant family history Medications and Allergies Allergies Allergy/AdvReac Type Severity Reaction Status Date / Time No Known Allergies Allergy Unverified 03/05/19 17:45 Home Medications Medication Instructions Recorded Confirmed Last Taken Type ALBUTEROL Inhaler (OR & NICU) 2 puff IH QID PRN 30 Days #1 vial 03/15/19 04/08/19 Unknown Rx [Proair] Benzonatate [Tessalon Perles] 200 mg PO Q8HR #14 capsule 03/15/19 04/08/19 Unknown Rx Ipratropium/Albuterol Sulfate 1 ampul IH TIDRT #30 ampul.neb 03/15/19 04/08/19 Unknown Rx [DUONEB *Not for PRN Use*] Temazepam [Restoril] 15 mg PO QHS PRN #7 capsule 03/15/19 04/08/19 Unknown Rx dilTIAZem [Cardizem] 60 mg PO Q6H #120 tablet 03/15/19 04/08/19 Unknown Rx oxyCODONE /ACETAMINOPHEN [Percocet 1 tab PO Q6H PRN #14 tablet 03/15/19 04/08/19 Unknown Rx 5/325 mg] Active Meds: Active Medications Acetaminophen (Tylenol) 650 mg PO Q4H PRN PRN Reason: Pain MILD(1-3)/Fever >100.5/BOO Albuterol (Proventil) 2.5 mg IH Q3HRT PRN PRN Reason: Shortness Of Breath Albuterol/Ipratropium (Duoneb *Not For Prn Use*) 1 ampul IH Q6HRT FRANCISCO JAVIER Last Admin: 04/09/19 14:54 Dose: Not Given Documented by: Benzonatate (Tessalon Perles) 200 mg PO Q8H [facility] Last Admin: 04/09/19 10:51 Dose: 200 mg Documented by: Budesonide (Pulmicort) 0.5 mg IH Q12HRT [facility] Last Admin: 04/09/19 08:41 Dose: 0.5 mg Documented by: Diltiazem HCl (Cardizem) 60 mg PO Q6H [facility] Last Admin: 04/09/19 10:52 Dose: 60 mg Documented by: Enoxaparin Sodium (Lovenox) 40 mg SUB-Q QDAY@1000 [facility] Last Admin: 04/09/19 10:51 Dose: 40 mg Documented by: Furosemide (Lasix) 40 mg IV QDAY [facility] Lorazepam (Ativan) 1 mg IV Q4H PRN PRN Reason: Agitation Last Admin: 04/09/19 12:01 Dose: 1 mg Documented by: Methylprednisolone Sodium Succinate (Solu-Medrol) 80 mg IV Q8HR [facility] Last Admin: 04/09/19 13:27 Dose: 80 mg Documented by: Morphine Sulfate (Morphine) 2 mg IV Q4H PRN PRN Reason: Pain , Severe (7-10) Last Admin: 04/09/19 08:21 Dose: 2 mg Documented by: Ondansetron HCl (Zofran) 4 mg IV Q8H PRN PRN Reason: Nausea And Vomiting Oxycodone/Acetaminophen (Percocet 5/325) 1 tab PO Q6H PRN PRN Reason: Pain, Moderate (4-6) Last Admin: 04/09/19 05:43 Dose: 1 tab Documented by: Sodium Chloride (Sodium Chloride Flush Syringe 10 Ml) 10 ml IV BID [facility] Last Admin: 04/09/19 10:52 Dose: 10 ml Documented by: Sodium Chloride (Sodium Chloride Flush Syringe 10 Ml) 10 ml IV PRN PRN PRN Reason: LINE FLUSH Last Admin: 04/08/19 22:15 Dose: 10 ml Documented by: Physical Examination Vital signs: Vital Signs Temp Pulse Resp BP Pulse Ox 97.8 F 115 H 24 121/91 91 04/07/19 23:44 04/07/19 23:44 04/07/19 23:44 04/07/19 23:44 04/07/19 23:44 Results - Laboratory Findings CBC and BMP: 04/09/19 03:42 04/09/19 03:42 ABG POC ABG pH 7.347 (7.35-7.45) L 04/08/19 21:07 POC ABG pCO2 51.0 (35-45) H 04/08/19 21:07 POC ABG pO2 308 (80-105) H 04/08/19 21:07 POC ABG HCO3 28.0 (22-26 mml/L) 04/08/19 21:07 POC ABG Total CO2 29 (23-27mmol/L) 04/08/19 21:07 POC ABG O2 Sat 100 04/08/19 21:07 PT/INR, D-dimer PT 15.7 Sec. (12.2-14.9) H 04/07/19 23:50 INR 1.28 (0.87-1.13) H 04/07/19 23:50 4399.55 ng/mlDDU (0-234) H 04/07/19 23:50 Abnormal lab findings: Abnormal Labs 04/07/19 04/07/19 04/07/19 23:47 23:50 23:50 WBC 14.8 H RBC 3.03 L Hgb 9.5 L Hct 27.7 L RDW 16.4 H Plt Count 494 H Lymph % (Auto) 12.7 L [place] % (Auto) 12.1 H [place] # 1.8 H Seg Neutrophils % 71.9 H Seg Neuts % (Manual) Lymphocytes % (Manual) Nucleated RBC % Seg Neutrophils # 10.7 H Seg Neutrophils # Man Lymphocytes # (Manual) PT 15.7 H INR 1.28 H D-Dimer 4399.55 H POC ABG pH POC ABG pCO2 POC ABG pO2 Creatinine 0.5 L Glucose 142 H Alkaline Phosphatase 468 H Albumin 2.8 L 04/08/19 04/09/19 04/09/19 21:07 03:42 03:42 WBC 19.9 H RBC 3.52 L Hgb 10.8 L Hct 33.1 L RDW 16.8 H Plt Count Lymph % (Auto) [place] % (Auto) [place] # Seg Neutrophils % Seg Neuts % (Manual) 94.0 H Lymphocytes % (Manual) 3.0 L Nucleated RBC % 1.0 H Seg Neutrophils # Seg Neutrophils # Man 18.7 H Lymphocytes # (Manual) 0.6 L PT INR D-Dimer POC ABG pH 7.347 L POC ABG pCO2 51.0 H POC ABG pO2 308 H Creatinine 0.5 L Glucose 162 H Alkaline Phosphatase Albumin
--- NOTE | 2019-04-09 16:44 | Event Note ---
Date: 04/09/19 called to room because of agitation getting out of bed and confused no obvious trauma A&P: Delirium ?? DT's - SUSANNAWA protocol - prn haldol - Aspiration precautions - continue other care as is
[2019-04-09] MEDS: HALDOL IV PRN (16:55)
[2019-04-09] MEDS: LEVAQUIN 500MG/100ML 500 MG/100 ML BAG IV SCH (16:57)
[2019-04-10] MEDS: MORPHINE IV PRN ×2 (00:33→20:33)
[2019-04-10] MEDS: HALDOL IV PRN (02:27)
[2019-04-10] MEDS: TESSALON PERLES PO SCH ×3 (04:17→20:32)
[2019-04-10] MEDS: SOLU-Medrol IV SCH ×2 (04:17→17:01)
[2019-04-10] MEDS: DUONEB *Not for PRN Use IH SCH ×4 (04:18→20:06)
[2019-04-10] MEDS: ATIVAN IV PRN ×3 (04:21→17:02)
[2019-04-10] MEDS: CARDIZEM PO SCH ×4 (05:26→22:45)
--- NOTE | 2019-04-10 06:18 | Consultation ---
PULMONARY CRITICAL CARE CONSULTATION NOTE CONSULTING PHYSICIAN: Dr. Strange. REASON FOR CONSULT: [id number] hypoxemic respiratory failure. CHIEF COMPLAINT AND HISTORY OF PRESENT ILLNESS: The patient is a 68-year-old gentleman. Past medical history is significant for a diagnosis of non-small cell lung cancer, I believe, within the last couple of months, who was discharged, sent home on home oxygen. Insurance and funding issues have made followup with his physicians, including the oncologist, difficult. Apparently, he also had his power cut off at home, so had been without oxygen for a few days, came into the Emergency Room complaining of chest pain, worse with coughing, increasing dyspnea on exertion and denied any hemoptysis. Denied any fevers, chills, nausea, vomiting. He was evaluated in the Emergency Room and found, amongst other things, to have a right lung whiteout. He was admitted to the Intensive Care Unit for further management. We were just informed of this patient's admission. When I stopped by to see him, he was on the bilevel positive air pressure ventilation mask. Work of breathing was slightly increased. He denied acute chest pain at that time. He does have a remote, I believe, 10+ pack-year tobacco smoking history. He corroborated the history that I had gotten from the records. States he is not currently smoking. The above is as much of the history of presentation as I have. PAST MEDICAL HISTORY: Again, non-small cell lung cancer, history of chronic hypoxemic respiratory failure, on home oxygen, history of COPD and history of tuberculosis, status post treatment reportedly in 1986. PAST SURGICAL HISTORY: Unknown. MEDICATIONS: He was on at the time I stopped by to see him were reviewed. Pertinent medications included the following: Tylenol 650 mg p.o. q. 4 hours p.r.n. mild pain or fevers, DuoNeb nebulizer treatments q.6 hours, Tessalon Perles 200 mg p.o. q.8 hours scheduled for cough, Pulmicort 0.5 mg nebulized q.12 hours, Diltiazem 60 mg p.o. q.6 hours, Lovenox 40 mg subcutaneous daily, Lasix 40 mg IV daily, lorazepam 1 mg IV q.4 hours p.r.n. agitation, Solu-Medrol 80 mg IV q.8 hours, morphine sulfate 2 mg IV q.4 hours p.r.n. severe pain, Zofran 4 mg IV q.8 hours p.r.n. nausea and vomiting, Percocet 5/325 mg 1 tablet p.o. q.6 hours p.r.n. moderate pain. ALLERGIES: No known drug allergies. DIET: Thin gentleman, acute weight loss or gain history is unknown. FAMILY AND SOCIAL HISTORY: Apparently lives in the community. No current alcohol, tobacco, or illicit drug use or abuse. He does have a 10+ pack year tobacco smoking history. FAMILY AND SOCIAL HISTORY: Otherwise noncontributory. REVIEW OF SYSTEMS: No loss of consciousness. No new-onset seizures. No new-onset focal weakness. Denies gross hematochezia or melena. Denies gross hematuria or dysuria. Denies hemoptysis. No heat or cold intolerance. No polydipsia, no polyuria. Denies periods of unexplained sadness and/or elation as may be consistent with depression or mulu. Complete 13-system review of systems obtained. Pertinent positives and/or negatives as in body of history above, otherwise noncontributory. PHYSICAL EXAMINATION: VITAL SIGNS: On examination and since he has been afebrile. Admission temperature 97.8 degrees Fahrenheit with a pulse of 115, respiratory rate of 24, blood pressure 121/91, O2 sats were 91%, inspired oxygen concentration at that time was not recorded. When I stopped by to see him, O2 sats were 98%; however, that was on the bilevel positive air pressure ventilation mask on 60% FiO2, 12/8 with 60% FiO2. GENERAL: He is a thin, elderly looking male. Normocephalic, atraumatic, on the BiPAP machine with mildly increased respiratory effort while on BiPAP and at rest. HEAD, EYES, EARS, NOSE AND THROAT: He is anicteric. No conjunctival erythema. Oropharynx is unable to be examined at this point. Does not appear dry. NECK: No gross jugular venous distention. Grossly, no palpable lymph nodes in the supraclavicular, submandibular or axillary lymph node chains. LUNGS: Auscultation of both lung leos reveals absent breath sounds in the right lung, clear in the left. No wheezing. HEART: Heart sounds 1 and 2 are heard, regular rate and rhythm without rubs or murmurs. ABDOMEN: Soft, full, bowel sounds are positive, nontender, no palpable hepatosplenomegaly. EXTREMITIES: Without overt digital clubbing, no cyanosis, no pedal edema. Pedal pulses are strong bilaterally. NEUROLOGIC: Pupils are equal, round, about 4 mm, reactive to light. Extraocular muscle movements are intact. He moves all 4 extremities spontaneously. His mood was normal. His affect was appropriate. SKIN: The skin was without overt cellulitis or rash, no decubitus ulcers reported. LABORATORY DATA: From my review as follows: Admission white cell count 14,800 with a hemoglobin of 9.5, hematocrit of 27.7 and platelet count of 494. INR was 1.28. D-dimer was elevated at 4399. Serum sodium was 142, potassium 3.9, chloride 106, bicarbonate 23, BUN 17, creatinine 0.5, glucose 142. Lactic acid level within normal limits. Liver function tests essentially within normal limits. Albumin was low at 2.8. Two sets of blood cultures, no growth to date. IMAGING STUDIES: Radiographic studies have been reviewed. A chest x-ray done at admission as compared to one from 03/13/2019, essentially progression of the right lung atelectasis over time. A CT angiogram was also done. I have reviewed that. No obvious filling defects consistent with pulmonary emboli. There is cutoff of the airway really around the right main stem level, but I do feel, overall, it is progression of the malignancy that has led to this. There is increase in the pleural effusions which may be as a result of an ex vacuo pneumothorax being filled with fluid. ASSESSMENT: 1. Acute on chronic hypoxemic respiratory failure. 2. Complete right lung atelectasis. 3. Non-small cell lung cancer, previously diagnosed. 4. Leukocytosis, possibly also related to steroids. 5. Anemia that is normocytic. 6. Elevated D-dimers, likely due to malignancy. 7. Adult failure to thrive. PLAN: I will go ahead and order a thoracentesis and see if we have any improvement in the atelectasis. If this is due to complete endobronchial occlusion, we most likely will not have any improvement with the drainage. If there is improvement with the drainage, then consideration will be given for chest tube placement in the short term. We will continue bilevel positive air pressure ventilation therapy. I will increase the settings to see if we can splint the airways open, perhaps for any minor element of mucoid impaction. Again, I do doubt that this is what we are dealing with. Ultimately, this gentleman's malignancy needs to be treated either with radiation therapy or other modalities. He may be a candidate for endobronchial stenting, but he first of all needs to get over this acute presentation. Empiric antibiotic therapy will be in order. I will start him on Levaquin monotherapy. I will get a CRP level as well as lactic acid level as needed to aid clinical decision making. CRP level, if within normal limit, argues against a true infectious process and there may be significant contribution from a steroid leukocytosis. In the meantime, I will go ahead and begin the taper of the steroids. I do not think they are offering a whole lot in this gentleman. He is appropriately on DVT prophylaxis. I will put him on GI prophylaxis. Flu and pneumonia vaccination will be addressed per protocol. Thank you very much for the consult. We will follow along. We will make further recommendations as picture progresses/becomes clearer. He was able to eat his breakfast earlier today. He has not required continuous BiPAP. Hopefully, he does not decompensate further. We will continue to watch him in the step-down unit at this point. JOB# [id number] GIOVANNI/MAHENDRA GARCIA
--- NOTE | 2019-04-10 07:19 | Hem/Onc Progress Note ---
Assessment and Plan Non-small cell lung cancer of - adenocarcinoma. The patient came in with shortness of breath and chest pain. The patient has no insurance. He would need eGFR testing and other targeted agents testing and he would also need outpatient followup. History of chronic obstructive pulmonary disease, on Rx. d/w dr Garcia - reg palliative radiation evaluation. - Patient Problems (1) Lung cancer Current Visit: Yes Status: Chronic Qualifiers: Laterality: right Lung location: overlapping sites Qualified Code(s): C34.81 - Malignant neoplasm of overlapping sites of right bronchus and lung Subjective Date of service: 04/10/19 Principal diagnosis: lung ca Interval history: SOB - on o2 Objective - Exam Narrative Exam: Pain - none General appearance distress - SOB Performance status limited self care Eyes - no icterus ENT no thrush LNs cervical not palpable Neck - normal ROM Respiratory Normal Breath sounds - decreased air entry CVS S1 S2 + Extremities normal temperature General GI Soft Rectal deferred male - deferred Skin warm Musculoskeletal moving normal Neurologically no focal deficit - Constitutional Vitals: Last Vital Signs Temp 97.6 F 04/10/19 04:14 Pulse 107 H 04/10/19 05:26 Resp 15 04/10/19 04:00 BP 104/76 04/10/19 05:26 Pulse Ox 96 04/10/19 04:00 - Labs Lab Results: Laboratory Results - last 24 hr 04/09/19 04/09/19 04/09/19 15:47 15:47 16:53 Phosphorus 4.00 Magnesium 2.10 Lactate Dehydrogenase 371 H C-Reactive Protein 21.80 H Medications & Allergies - Medications Allergies/Adverse Reactions: Allergies No Known Allergies Allergy (Unverified 03/05/19 17:45) Home Medications: Home Medications Medication Instructions Recorded Confirmed Last Taken Type ALBUTEROL Inhaler (OR & NICU) 2 puff IH QID PRN 30 Days #1 vial 03/15/1904/08 Unknown Rx [Proair] Benzonatate [Tessalon Perles] 200 mg PO Q8HR #14 capsule 03/15/19 04/08/19 Unknown Rx Ipratropium/Albuterol Sulfate 1 ampul IH TIDRT #30 ampul.neb 03/15/19 04/08/19 U nknown Rx [DUONEB *Not for PRN Use*] Temazepam [Restoril] 15 mg PO QHS PRN #7 capsule 03/15/19 04/08/19 Unknown Rx dilTIAZem [Cardizem] 60 mg PO Q6H #120 tablet 03/15/19 04/08/19 Unknown Rx oxyCODONE /ACETAMINOPHEN [Percocet 1 tab PO Q6H PRN #14 tablet 03/15/19 04/08/19 Unknown Rx 5/325 mg] Active Medications: Generic Name Dose Route Start Last Admin Trade Name Freq PRN Reason Stop Dose Admin Acetaminophen 650 mg 04/08/19 03:56 Tylenol PO Q4H PRN Pain MILD(1-3)/Fever >100.5/BOO Albuterol 2.5 mg 04/08/19 03:56 Proventil IH Q3HRT PRN Shortness Of Breath Albuterol/Ipratropium 1 ampul 04/08/19 08:00 04/10/19 04:18 Duoneb *Not For Prn Use* IH 1 ampul Q6HRT FRANCISCO JAVIER Administration Benzonatate 200 mg 04/09/19 11:00 04/10/19 04:17 Tessalon Perles PO Not Given Q8H FRANCISCO JAVIER Budesonide 0.5 mg 04/08/19 08:00 04/09/19 20:46 Pulmicort IH 0.5 mg Q12HRT FRANCISCO JAVIER Administration Diltiazem HCl 60 mg 04/09/19 11:00 04/10/19 05:26 Cardizem PO Not Given Q6H FRANCISCO JAVIER Enoxaparin Sodium 40 mg 04/08/19 10:00 04/09/19 10:51 Lovenox SUB-Q 40 mg QDAY@1000 FRANCISCO JAVIER Administration Famotidine 20 mg 04/10/19 10:00 Pepcid PO QDAY FRANCISCO JAVIER Furosemide 40 mg 04/10/19 10:00 Lasix IV QDAY FRANCISCO JAVIER Haloperidol Lactate 5 mg 04/09/19 16:42 04/10/19 02:27 Haldol IV 5 mg Q6H PRN Administration Unrespon. to mult. doses BZD's Levofloxacin/Dextrose 500 mg in 100 mls @ 100 mls/hr 04/09/19 16:00 04/09/19 16:57 Levaquin 500mg/100ml IV 04/14/19 15:59 100 mls/hr Q24HR FRANCISCO JAVIER Administration Protocol Lorazepam 1 mg 04/09/19 10:20 04/10/19 04:21 Ativan IV 1 mg Q4H PRN Administration Agitation Methylprednisolone Sodium Succinate 40 mg 04/09/19 16:00 04/10/19 04:17 Solu-Medrol IV 40 mg Q12H FRANCISCO JAVIER Administration Morphine Sulfate 2 mg 04/08/19 11:14 04/10/19 00:33 Morphine IV 2 mg Q4H PRN Administration Pain , Severe (7-10) Ondansetron HCl 4 mg 04/08/19 03:56 Zofran IV Q8H PRN Nausea And Vomiting Oxycodone/Acetaminophen 1 tab 04/08/19 03:56 04/09/19 05:43 Percocet 5/325 PO 1 tab Q6H PRN Administration Pain, Moderate (4-6) Sodium Chloride 10 ml 04/08/19 10:00 04/09/19 22:17 Sodium Chloride Flush Syringe 10 Ml IV 10 ml BID FRANCISCO JAVIER Administration Sodium Chloride 10 ml 04/08/19 03:56 04/08/19 22:15 Sodium Chloride Flush Syringe 10 Ml IV 10 ml PRN PRN Administration LINE FLUSH
[2019-04-10] MEDS: PULMICORT IH SCH ×2 (08:51→20:06)
[2019-04-10] MEDS: LOVENOX SUB-Q SCH (10:50)
[2019-04-10] MEDS: PEPCID PO SCH (10:51)
[2019-04-10] MEDS: LASIX IV SCH (10:52)
[2019-04-10] MEDS: LEVAQUIN 500MG/100ML 500 MG/100 ML BAG IV SCH (10:53)
--- NOTE | 2019-04-10 11:25 | Progress Note ---
Assessment and Plan Patient appears more comfortable today. He developed some confusion overnight, CIWA protocol was initiated. Cont present cardiac management. The patient has been seen in conjunction with Dr. Sanabria who agrees with assessment and plan of care. - Patient Problems (1) Acute respiratory distress Current Visit: Yes Status: Acute (2) Atelectasis of right lung Current Visit: Yes Status: Acute (3) Pericardial effusion without cardiac tamponade Current Visit: Yes Status: Acute (4) Pleural effusion Current Visit: Yes Status: Acute (5) Lung cancer Current Visit: Yes Status: Chronic Qualifiers: Laterality: right Lung location: overlapping sites Qualified Code(s): C34.81 - Malignant neoplasm of overlapping sites of right bronchus and lung (6) History of TB (tuberculosis) Current Visit: No Status: Chronic Subjective Date of service: 04/10/19 Principal diagnosis: lung ca Interval history: pt resting in bed, lethargic. in ST on tele. Objective Last Vital Signs Temp 97.6 F 04/10/19 04:14 Pulse 126 H 04/10/19 10:51 Resp 17 04/10/19 10:40 BP 119/82 04/10/19 10:51 Pulse Ox 96 04/10/19 10:40 - Physical Examination General: Cachectic HEENT: Positive: PERRL Neck: Positive: neck supple Cardiac: Positive: Regular Rhythm, S1/S2 Neuro: Positive: Grossly Intact Abdomen: Positive: Unremarkable Skin: Positive: Clear Musculoskeletal: Normal Range of Motion Extremities: Present: normal - Labs and Meds Cardiac Enzymes 04/09/19 Range/Units 15:47 Lactate Dehydrogenase 371 H (91-180) units/L - Imaging and Cardiology Echo: report reviewed (03/2019: LVEF of 55 to 60%, no pericardial effusion) - EKG Sinus rhythms and dysrhythmias: sinus tachycardia
--- NOTE | 2019-04-10 14:37 | Progress Note ---
Assessment and Plan Assessment and plan: Difficulty breathing History of present illness: 68-year-old male who is a former smoker with history of COPD, remote history of tuberculosis, newly diagnosed with non-small cell lung carcinoma (03/2019) presents to [facility] ED with complaints of difficulty with breathing, [place] and cough Review of chart shows that patient was recently diagnosed with non-small cell lung cancer last month and advised to follow-up with Dr. Haider outpatient. Patient states he was unable to do so due to finances. Past History Past Medical History: cancer (lung cancer diagnosed 03/2019), COPD, other (remote history of TB diagnosis 1986, treated for 6 months, patient had negative AFB 4 in March 2019) CTA chest; 1. There is complete atelectasis/collapse of the right lung with abrupt cut off of the right mainstem bronchus which may be due to mucous plug or neoplasm. Bronchoscopy is recommended. 2. Small to moderate right pleural effusion, increased in size. 3. Moderate pericardial effusion, new since the prior. 4. No acute PTE is seen. Acute hypoxic respiratory failure/Right lung collapse/ COPD flare ; cont high flow oxygen, steroids and nebs, pulm to see pt, about possible bronch etoh abuse/withdrawal; ciwa protocol Agitation/anxiety; Ativan as needed Moderate pericardial effusion- seen on CTA chest 04/07/2019; chest pain Cardiology input appreciated, there is a moderate size pericardial effusion without tamponade not, follow-up echo Non-small cell lung carcinoma-newly diagnosed 03/2019 oncologist consult pending SIRS; no evidence of infection at this time BC pending Remote history of TB- 1986 (AFB 4 negative 03/2019; patient has been cleared by ID) History of tobacco abuse Preventative health counseling performed for 17 minutes Smoking cessation counseling performed for 10 minutes, nicotine patches ordered -guest services consult place due to financial limitations with treatments DVT PPX on Lovenox Critical care time 35 minutes History Interval history: Patient continues to have shortness of breath and cough no fever Has been anxious and agitated No vomiting or seizures, no chest pain Hospitalist Physical - Physical exam Narrative exam: General.: severe resp distress, nontoxic HEENT: Moist mucous membranes, extraocular muscles intact, no lymphadenopathy Neck: supple Cardiac: S1-S2 heard Lungs: Severely decreased air entry, dull on right Abdomen: soft , nontender, nondistended, bowel sounds positive Extremities: no edema clubbing or cyanosis Skin: no rash or lesions Neurologic: no gross focal deficits Psych: calm, and cooperative - Constitutional Vitals: Temp Pulse Resp BP Pulse Ox 97.9 F 112 H 20 123/89 95 04/10/19 12:00 04/10/19 12:40 04/10/19 12:40 04/10/19 12:40 04/10/19 12:40 General appearance: Present: severe distress (supplemental oxygen via face mask) Results - Labs CBC & Chem 7: 04/09/19 03:42 04/09/19 03:42 Labs: Laboratory Last Values WBC 19.9 K/mm3 (4.5-11.0) H 04/09/19 03:42 RBC 3.52 M/mm3 (3.65-5.03) L 04/09/19 03:42 Hgb 10.8 gm/dl (11.8-15.2) L 04/09/19 03:42 Hct 33.1 % (35.5-45.6) L 04/09/19 03:42 MCV 94 fl (84-94) 04/09/19 03:42 MCH 31 pg (28-32) 04/09/19 03:42 MCHC 33 % (32-34) 04/09/19 03:42 RDW 16.8 % (13.2-15.2) H 04/09/19 03:42 Plt Count 263 K/mm3 (140-440) 04/09/19 03:42 Lymph % (Auto) 12.7 % (13.4-35.0) L 04/07/19 23:47 [place] % (Auto) 12.1 % (0.0-7.3) H 04/07/19 23:47 Eos % (Auto) 2.7 % (0.0-4.3) 04/07/19 23:47 Baso % (Auto) 0.6 % (0.0-1.8) 04/07/19 23:47 Lymph # 1.9 K/mm3 (1.2-5.4) 04/07/19 23:47 [place] # 1.8 K/mm3 (0.0-0.8) H 04/07/19 23:47 Eos # 0.4 K/mm3 (0.0-0.4) 04/07/19 23:47 Baso # 0.1 K/mm3 (0.0-0.1) 04/07/19 23:47 Add Manual Diff Complete 04/09/19 03:42 Total Counted 100 04/09/19 03:42 Seg Neutrophils % Informatics Analyst 04/09/19 03:42 Seg Neuts % (Manual) 94.0 % (40.0-70.0) H 04/09/19 03:42 0 % 04/09/19 03:42 3.0 % (13.4-35.0) L 04/09/19 03:42 Reactive Lymphs % (Man) 0 % 04/09/19 03:42 2.0 % (0.0-7.3) 04/09/19 03:42 0 % (0.0-4.3) 04/09/19 03:42 0 % (0.0-1.8) 04/09/19 03:42 0 % 04/09/19 03:42 1.0 % 04/09/19 03:42 0 % 04/09/19 03:42 0 % 04/09/19 03:42 Nucleated RBC % 1.0 % (0.0-0.9) H 04/09/19 03:42 Seg Neutrophils # 10.7 K/mm3 (1.8-7.7) H 04/07/19 23:47 Seg Neutrophils # Man 18.7 K/mm3 (1.8-7.7) H 04/09/19 03:42 Band Neutrophils # 0.0 K/mm3 04/09/19 03:42 0.6 K/mm3 (1.2-5.4) L 04/09/19 03:42 Abs React Lymphs (Man) 0.0 K/mm3 04/09/19 03:42 0.4 K/mm3 (0.0-0.8) 04/09/19 03:42 0.0 K/mm3 (0.0-0.4) 04/09/19 03:42 0.0 K/mm3 (0.0-0.1) 04/09/19 03:42 0.0 K/mm3 04/09/19 03:42 0.2 K/mm3 04/09/19 03:42 0.0 K/mm3 04/09/19 03:42 Blast Cells # 0.0 K/mm3 04/09/19 03:42 WBC Morphology Not Reportable 04/09/19 03:42 Hypersegmented Neuts Not Reportable 04/09/19 03:42 Hyposegmented Neuts Not Reportable 04/09/19 03:42 Hypogranular Neuts Not Reportable 04/09/19 03:42 Not Reportable 04/09/19 03:42 Not Reportable 04/09/19 03:42 Not Reportable 04/09/19 03:42 Not Reportable 04/09/19 03:42 Not Reportable 04/09/19 03:42 Not Reportable 04/09/19 03:42 Consistent w auto 04/09/19 03:42 Not Reportable 04/09/19 03:42 Plt Clumps, EDTA Not Reportable 04/09/19 03:42 Not Reportable 04/09/19 03:42 Not Reportable 04/09/19 03:42 Not Reportable 04/09/19 03:42 Plt Morphology Comment Not Reportable 04/09/19 03:42 RBC Morphology Normal 04/09/19 03:42 Dimorphic RBCs Not Reportable 04/09/19 03:42 Not Reportable 04/09/19 03:42 Not Reportable 04/09/19 03:42 Not Reportable 04/09/19 03:42 Not Reportable 04/09/19 03:42 Not Reportable 04/09/19 03:42 Not Reportable 04/09/19 03:42 Not Reportable 04/09/19 03:42 Not Reportable 04/09/19 03:42 Not Reportable 04/09/19 03:42 Not Reportable 04/09/19 03:42 Not Reportable 04/09/19 03:42 Not Reportable 04/09/19 03:42 Not Reportable 04/09/19 03:42 Not Reportable 04/09/19 03:42 Not Reportable 04/09/19 03:42 Not Reportable 04/09/19 03:42 Not Reportable 04/09/19 03:42 Not Reportable 04/09/19 03:42 Not Reportable 04/09/19 03:42 Acanthocytes (Spur) Not Reportable 04/09/19 03:42 [place]leaux Not Reportable 04/09/19 03:42 Not Reportable 04/09/19 03:42 Not Reportable 04/09/19 03:42 Not Reportable 04/09/19 03:42 Not Reportable 04/09/19 03:42 Hem Pathologist Commnt No 04/09/19 03:42 PT 15.7 Sec. (12.2-14.9) H 04/07/19 23:50 INR 1.28 (0.87-1.13) H 04/07/19 23:50 APTT 36.5 Sec. (24.2-36.6) 04/07/19 23:50 4399.55 ng/mlDDU (0-234) H 04/07/19 23:50 POC ABG pH 7.347 (7.35-7.45) L 04/08/19 21:07 POC ABG pCO2 51.0 (35-45) H 04/08/19 21:07 POC ABG pO2 308 (80-105) H 04/08/19 21:07 POC ABG HCO3 28.0 (22-26 mml/L) 04/08/19 21:07 POC ABG Total CO2 29 (23-27mmol/L) 04/08/19 21:07 POC ABG O2 Sat 100 04/08/19 21:07 POC ABG Base Excess 2 ((-2) - (+3)mmol/L) 04/08/19 21:07 100 % 04/08/19 21:07 Sodium 142 mmol/L (137-145) 04/09/19 03:42 Potassium 4.7 mmol/L (3.6-5.0) D 04/09/19 03:42 Chloride 103.1 mmol/L (98-107) 04/09/19 03:42 Carbon Dioxide 27 mmol/L (22-30) 04/09/19 03:42 17 mmol/L 04/09/19 03:42 BUN 18 mg/dL (9-20) 04/09/19 03:42 0.5 mg/dL (0.8-1.5) L 04/09/19 03:42 Estimated GFR > 60 ml/min 04/09/19 03:42 36 % 04/09/19 03:42 Glucose 162 mg/dL (75-100) H 04/09/19 03:42 POC Glucose 158 (70-105) H 04/10/19 11:29 Lactic Acid 1.70 mmol/L (0.7-2.0) 04/08/19 04:04 Calcium 9.8 mg/dL (8.4-10.2) 04/09/19 03:42 Phosphorus 4.00 mg/dL (2.5-4.5) 04/09/19 16:53 Magnesium 2.10 mg/dL (1.7-2.3) 04/09/19 16:53 0.50 mg/dL (0.1-1.2) 04/07/19 23:50 AST 31 units/L (5-40) 04/07/19 23:50 ALT 40 units/L (7-56) 04/07/19 23:50 468 units/L (35-129) H 04/07/19 23:50 371 units/L (91-180) H 04/09/19 15:47 < 0.010 ng/mL (0.00-0.029) 04/08/19 01:19 21.80 mg/dL (0.00-1.30) H 04/09/19 15:47 NT-Pro-B Natriuret Pep 361.4 pg/mL (0-900) 04/07/19 23:47 6.7 g/dL (6.3-8.2) 04/07/19 23:50 2.8 g/dL (3.9-5) L 04/07/19 23:50 0.7 % 04/07/19 23:50 Active Medications - Current Medications Current Medications: Generic Name Dose Route Start Last Admin Trade Name Freq PRN Reason Stop Dose Admin Acetaminophen 650 mg 04/08/19 03:56 Tylenol PO Q4H PRN Pain MILD(1-3)/Fever >100.5/BOO Albuterol 2.5 mg 04/08/19 03:56 Proventil IH Q3HRT PRN Shortness Of Breath Albuterol/Ipratropium 1 ampul 04/08/19 08:00 04/10/19 13:50 Duoneb *Not For Prn Use* IH 1 ampul Q6HRT FRANCISCO JAVIER Administration Benzonatate 200 mg 04/09/19 11:00 04/10/19 10:50 Tessalon Perles PO 200 mg Q8H FRANCISCO JAVIER Administration Budesonide 0.5 mg 04/08/19 08:00 04/10/19 08:51 Pulmicort IH 0.5 mg Q12HRT FRANCISCO JAVIER Administration Diltiazem HCl 60 mg 04/09/19 11:00 04/10/19 10:51 Cardizem PO 60 mg Q6H FRANCISCO JAVIER Administration Enoxaparin Sodium 40 mg 04/08/19 10:00 04/10/19 10:50 Lovenox SUB-Q 40 mg QDAY@1000 FRANCISCO JAVIER Administration Famotidine 20 mg 04/10/19 10:00 04/10/19 10:51 Pepcid PO 20 mg QDAY FRANCISCO JAVIER Administration Furosemide 40 mg 04/10/19 10:00 04/10/19 10:52 Lasix IV 40 mg QDAY FRANCISCO JAVIER Administration Haloperidol Lactate 5 mg 04/09/19 16:42 04/10/19 02:27 Haldol IV 5 mg Q6H PRN Administration Unrespon. to mult. doses BZD's Levofloxacin/Dextrose 500 mg in 100 mls @ 100 mls/hr 04/09/19 16:00 04/10/19 10:53 Levaquin 500mg/100ml IV 04/14/19 15:59 100 mls/hr Q24HR FRANCISCO JAVIER Administration Protocol Lorazepam 1 mg 04/09/19 10:20 04/10/19 10:53 Ativan IV 1 mg Q4H PRN Administration Agitation Methylprednisolone Sodium Succinate 40 mg 04/09/19 16:00 04/10/19 04:17 Solu-Medrol IV 40 mg Q12H FRANCISCO JAVIER Administration Morphine Sulfate 2 mg 04/08/19 11:14 04/10/19 00:33 Morphine IV 2 mg Q4H PRN Administration Pain , Severe (7-10) Nicotine 14 mg 04/10/19 13:00 Habitrol TD QDAY FRANCISCO JAVIER Ondansetron HCl 4 mg 04/08/19 03:56 Zofran IV Q8H PRN Nausea And Vomiting Oxycodone/Acetaminophen 1 tab 04/08/19 03:56 04/09/19 05:43 Percocet 5/325 PO 1 tab Q6H PRN Administration Pain, Moderate (4-6) Sodium Chloride 10 ml 04/08/19 10:00 04/09/19 22:17 Sodium Chloride Flush Syringe 10 Ml IV 10 ml BID FRANCISCO JAVIER Administration Sodium Chloride 10 ml 04/08/19 03:56 04/08/19 22:15 Sodium Chloride Flush Syringe 10 Ml IV 10 ml PRN PRN Administration LINE FLUSH Nutrition/Malnutrition Assess - Dietary Evaluation Nutrition/Malnutrition Findings: Nutrition Notes Start: 04/09/19 13:11 Freq: Status: Active Protocol: Document 04/09/19 13:11 RM (Rec: 04/09/19 13:18 RM [id number]) Nutrition Notes Need for Assessment generated from: [facility] Initial or Follow up Assessment Current Diagnosis COPD Other Pertinent Diagnosis Lung CA, Collapse of R lung Current Diet Cardiac Labs/Tests Reviewed Pertinent Medications Solu-Medrol Height 5 ft 4 in Weight 55.3 kg [place] Body Weight (kg) 59.09 BMI 20.9 Subjective/Other Information Screened for malnutrition. Pt asleep at time of visit. Noted breakfast at bedside w/ 50% eaten. Percent of energy/protein needs met: 70%/63% Burn Absent Trauma Absent #1 Nutrition Diagnosis Inadequate oral intake Etiology lung CA, collapse of R lung As Evidenced by Signs and Symptoms breakfast at bedside w/50% eaten Is patient on ventilator? No Is Patient Ambulatory and/or Out of Bed No REE-([place]-confined to bed) [phone] Calculation Used for Recommendations [facility] Additional Notes Protein Needs: 66-111g (1.2-2g /kg) Fluid Needs: 1 ml/kcal Nutrition Intervention Change Diet Order: Continue current Add Supplement/Snack (indicate name/kcal Ensure Enlive 1 daily /protein ) Provides kCal: 350 Provides Protein (gm) 20 Goal #1 Meet at least 75% of calorie and protein needs via PO and ONS intakes Anticipated Discharge Needs: Cardiac diet Follow-Up By: 04/12/19 Additional Comments Follow for PO and ONS intakes, malnutrition assessment
--- NOTE | 2019-04-10 19:16 | Progress Note ---
Assessment and Plan Patient alert, awake . On O2 vapotherm FIO2 70% and O2 saturation running 92%. - Patient Problems (1) Acute respiratory distress Current Visit: Yes Status: Acute Plan to address problem: O2 supplementation throigh vapotherm 60%. Albuterol/atrovent aerosol tratments q 6 hours. Continue I/V solumedrol. Continue Levaquin. Continue Famotidine. Continue S/C Lovenox. Recommend chest PT. (2) Atelectasis of right lung Current Visit: Yes Status: Acute Plan to address problem: Drain pleural effusion Aerosolized bronchodilators Chest PT. (3) Pleural effusion Current Visit: Yes Status: Acute Plan to address problem: Recommend thoracentesis under ultrasound guidance or with chest tube drinage. (4) Paroxysmal atrial flutter Current Visit: No Status: Acute Plan to address problem: Patient is on cardiazem Management as per cardiology. (5) Lung cancer Current Visit: Yes Status: Chronic Qualifiers: Laterality: right Lung location: overlapping sites Qualified Code(s): C34.81 - Malignant neoplasm of overlapping sites of right bronchus and lung Plan to address problem: Oncology consulted. Subjective Date of service: 04/10/19 Principal diagnosis: lung ca Interval history: Patient alert, awake . On O2 vapotherm FIO2 70% and O2 saturation running 92%. Objective Vital Signs - 12hr 04/10/19 04/10/19 04/10/19 08:00 08:50 09:19 Temperature 97.5 F L Pulse Rate 111 H Pulse Rate [ 116 H 112 H Anterior Left Throughout] Pulse Rate [ 111 H From Monitor] Pulse Rate [ 111 H Left Dorsalis Pedis] Pulse Rate [ 111 H Right Dorsalis Pedis] Respiratory 20 Rate Respiratory 22 20 Rate [Anterior Left Throughout ] Respiratory Rate [Chest] Blood Pressure O2 Sat by Pulse 89 Oximetry 04/10/19 04/10/19 04/10/19 10:00 10:10 10:20 Temperature Pulse Rate 115 H 114 H 134 H Pulse Rate [ Anterior Left Throughout] Pulse Rate [ From Monitor] Pulse Rate [ Left Dorsalis Pedis] Pulse Rate [ Right Dorsalis Pedis] Respiratory 27 H 22 38 H Rate Respiratory Rate [Anterior Left Throughout ] Respiratory 30 H Rate [Chest] Blood Pressure O2 Sat by Pulse 91 91 82 L Oximetry 04/10/19 04/10/19 04/10/19 10:30 10:40 10:50 Temperature Pulse Rate 117 H 115 H 113 H Pulse Rate [ Anterior Left Throughout] Pulse Rate [ From Monitor] Pulse Rate [ Left Dorsalis Pedis] Pulse Rate [ Right Dorsalis Pedis] Respiratory 22 17 23 Rate Respiratory Rate [Anterior Left Throughout ] Respiratory Rate [Chest] Blood Pressure O2 Sat by Pulse 96 96 97 Oximetry 04/10/19 04/10/19 04/10/19 10:51 11:00 11:10 Temperature Pulse Rate 126 H 113 H 113 H Pulse Rate [ Anterior Left Throughout] Pulse Rate [ From Monitor] Pulse Rate [ Left Dorsalis Pedis] Pulse Rate [ Right Dorsalis Pedis] Respiratory 19 21 Rate Respiratory Rate [Anterior Left Throughout ] Respiratory Rate [Chest] Blood Pressure 119/82 123/89 123/89 O2 Sat by Pulse 95 95 Oximetry 04/10/19 04/10/19 04/10/19 11:20 11:30 11:40 Temperature Pulse Rate 115 H 115 H 119 H Pulse Rate [ Anterior Left Throughout] Pulse Rate [ From Monitor] Pulse Rate [ Left Dorsalis Pedis] Pulse Rate [ Right Dorsalis Pedis] Respiratory 38 H 29 H 37 H Rate Respiratory Rate [Anterior Left Throughout ] Respiratory Rate [Chest] Blood Pressure 123/89 123/89 123/89 O2 Sat by Pulse 94 94 93 Oximetry 04/10/19 04/10/19 04/10/19 11:50 11:51 12:00 Temperature 97.9 F Pulse Rate 126 H 123 H Pulse Rate [ Anterior Left Throughout] Pulse Rate [ 99 H From Monitor] Pulse Rate [ 99 H Left Dorsalis Pedis] Pulse Rate [ 98 H Right Dorsalis Pedis] Respiratory 42 H 33 H Rate Respiratory Rate [Anterior Left Throughout ] Respiratory Rate [Chest] Blood Pressure 123/89 123/89 O2 Sat by Pulse 88 91 87 Oximetry 04/10/19 04/10/19 04/10/19 12:10 12:20 12:30 Temperature Pulse Rate 113 H 116 H 112 H Pulse Rate [ Anterior Left Throughout] Pulse Rate [ From Monitor] Pulse Rate [ Left Dorsalis Pedis] Pulse Rate [ Right Dorsalis Pedis] Respiratory 26 H 22 35 H Rate Respiratory Rate [Anterior Left Throughout ] Respiratory Rate [Chest] Blood Pressure 123/89 123/89 123/89 O2 Sat by Pulse 94 94 94 Oximetry 04/10/19 04/10/19 04/10/19 12:40 12:50 13:00 Temperature Pulse Rate 112 H 113 H 109 H Pulse Rate [ Anterior Left Throughout] Pulse Rate [ From Monitor] Pulse Rate [ Left Dorsalis Pedis] Pulse Rate [ Right Dorsalis Pedis] Respiratory 20 26 H 25 H Rate Respiratory Rate [Anterior Left Throughout ] Respiratory Rate [Chest] Blood Pressure 123/89 123/89 124/94 O2 Sat by Pulse 95 93 95 Oximetry 04/10/19 04/10/19 04/10/19 13:10 13:20 13:30 Temperature Pulse Rate 121 H 110 H 109 H Pulse Rate [ Anterior Left Throughout] Pulse Rate [ From Monitor] Pulse Rate [ Left Dorsalis Pedis] Pulse Rate [ Right Dorsalis Pedis] Respiratory 29 H 38 H 33 H Rate Respiratory Rate [Anterior Left Throughout ] Respiratory Rate [Chest] Blood Pressure 124/94 124/94 124/94 O2 Sat by Pulse 87 96 95 Oximetry 04/10/19 04/10/19 04/10/19 13:40 13:50 14:00 Temperature Pulse Rate 114 H 113 H 111 H Pulse Rate [ 98 H Anterior Left Throughout] Pulse Rate [ From Monitor] Pulse Rate [ Left Dorsalis Pedis] Pulse Rate [ Right Dorsalis Pedis] Respiratory 30 H 35 H 38 H Rate Respiratory 22 Rate [Anterior Left Throughout ] Respiratory Rate [Chest] Blood Pressure 124/94 124/94 124/94 O2 Sat by Pulse 91 93 96 Oximetry 04/10/19 04/10/19 04/10/19 14:05 14:10 14:20 Temperature Pulse Rate 109 H 112 H Pulse Rate [ 97 H Anterior Left Throughout] Pulse Rate [ From Monitor] Pulse Rate [ Left Dorsalis Pedis] Pulse Rate [ Right Dorsalis Pedis] Respiratory 22 35 H Rate Respiratory 24 Rate [Anterior Left Throughout ] Respiratory Rate [Chest] Blood Pressure 124/89 124/89 O2 Sat by Pulse 97 92 Oximetry 04/10/19 04/10/19 04/10/19 14:30 14:40 14:50 Temperature Pulse Rate 106 H 107 H 103 H Pulse Rate [ Anterior Left Throughout] Pulse Rate [ From Monitor] Pulse Rate [ Left Dorsalis Pedis] Pulse Rate [ Right Dorsalis Pedis] Respiratory 31 H 25 H 23 Rate Respiratory Rate [Anterior Left Throughout ] Respiratory Rate [Chest] Blood Pressure 124/89 124/89 124/89 O2 Sat by Pulse 95 92 96 Oximetry 04/10/19 04/10/19 04/10/19 15:00 17:00 17:01 Temperature Pulse Rate 108 H 104 H Pulse Rate [ Anterior Left Throughout] Pulse Rate [ From Monitor] Pulse Rate [ Left Dorsalis Pedis] Pulse Rate [ Right Dorsalis Pedis] Respiratory 40 H Rate Respiratory Rate [Anterior Left Throughout ] Respiratory Rate [Chest] Blood Pressure 112/66 120/78 O2 Sat by Pulse 93 92 Oximetry 04/10/19 04/10/19 17:40 17:50 Temperature Pulse Rate Pulse Rate [ 98 H 98 H Anterior Left Throughout] Pulse Rate [ From Monitor] Pulse Rate [ Left Dorsalis Pedis] Pulse Rate [ Right Dorsalis Pedis] Respiratory Rate Respiratory 24 23 Rate [Anterior Left Throughout ] Respiratory Rate [Chest] Blood Pressure O2 Sat by Pulse Oximetry Constitutional: no acute distress, alert Eyes: non-icteric ENT: oropharynx moist Neck: supple, no lymphadenopathy Ascultation: Bilateral: other (Complete opacification of right lung.) Cardiovascular: regular rate and rhythm Gastrointestinal: normoactive bowel sounds, soft Integumentary: normal Extremities: no cyanosis, no edema Neurologic: non-focal exam, pupils equal and round Psychiatric: depressed CBC and BMP: 04/09/19 03:42 04/09/19 03:42 ABG, PT/INR, D-dimer: ABG POC ABG pH 7.347 (7.35-7.45) L 04/08/19 21:07 POC ABG pCO2 51.0 (35-45) H 04/08/19 21:07 POC ABG pO2 308 (80-105) H 04/08/19 21:07 POC ABG HCO3 28.0 (22-26 mml/L) 04/08/19 21:07 POC ABG Total CO2 29 (23-27mmol/L) 04/08/19 21:07 POC ABG O2 Sat 100 04/08/19 21:07 PT/INR, D-dimer PT 15.7 Sec. (12.2-14.9) H 04/07/19 23:50 INR 1.28 (0.87-1.13) H 04/07/19 23:50 4399.55 ng/mlDDU (0-234) H 04/07/19 23:50 Abnormal lab findings: Abnormal Labs 04/07/19 04/07/19 04/07/19 23:47 23:50 23:50 WBC 14.8 H RBC 3.03 L Hgb 9.5 L Hct 27.7 L RDW 16.4 H Plt Count 494 H Lymph % (Auto) 12.7 L [place] % (Auto) 12.1 H [place] # 1.8 H Seg Neutrophils % 71.9 H Seg Neuts % (Manual) Lymphocytes % (Manual) Nucleated RBC % Seg Neutrophils # 10.7 H Seg Neutrophils # Man Lymphocytes # (Manual) PT 15.7 H INR 1.28 H D-Dimer 4399.55 H POC ABG pH POC ABG pCO2 POC ABG pO2 Creatinine 0.5 L Glucose 142 H POC Glucose Alkaline Phosphatase 468 H Lactate Dehydrogenase C-Reactive Protein Albumin 2.8 L 04/08/19 04/09/19 04/09/19 21:07 03:42 03:42 WBC 19.9 H RBC 3.52 L Hgb 10.8 L Hct 33.1 L RDW 16.8 H Plt Count Lymph % (Auto) [place] % (Auto) [place] # Seg Neutrophils % Seg Neuts % (Manual) 94.0 H Lymphocytes % (Manual) 3.0 L Nucleated RBC % 1.0 H Seg Neutrophils # Seg Neutrophils # Man 18.7 H Lymphocytes # (Manual) 0.6 L PT INR D-Dimer POC ABG pH 7.347 L POC ABG pCO2 51.0 H POC ABG pO2 308 H Creatinine 0.5 L Glucose 162 H POC Glucose Alkaline Phosphatase Lactate Dehydrogenase C-Reactive Protein Albumin 04/09/19 04/09/19 04/10/19 15:47 15:47 08:33 WBC RBC Hgb Hct RDW Plt Count Lymph % (Auto) [place] % (Auto) [place] # Seg Neutrophils % Seg Neuts % (Manual) Lymphocytes % (Manual) Nucleated RBC % Seg Neutrophils # Seg Neutrophils # Man Lymphocytes # (Manual) PT INR D-Dimer POC ABG pH POC ABG pCO2 POC ABG pO2 Creatinine Glucose POC Glucose 152 H Alkaline Phosphatase Lactate Dehydrogenase 371 H C-Reactive Protein 21.80 H Albumin 04/10/19 11:29 WBC RBC Hgb Hct RDW Plt Count Lymph % (Auto) [place] % (Auto) [place] # Seg Neutrophils % Seg Neuts % (Manual) Lymphocytes % (Manual) Nucleated RBC % Seg Neutrophils # Seg Neutrophils # Man Lymphocytes # (Manual) PT INR D-Dimer POC ABG pH POC ABG pCO2 POC ABG pO2 Creatinine Glucose POC Glucose 158 H Alkaline Phosphatase Lactate Dehydrogenase C-Reactive Protein Albumin Chest x-ray: report reviewed (Complete Opacification of right lung.), image reviewed
[2019-04-10] MEDS: HABITROL TD SCH (19:18)
[2019-04-10] MEDS: SODIUM CHLORIDE FLUSH SYRINGE 10 ML IV SCH (22:45)
[2019-04-10] MEDS: PERCOCET 5/325 PO PRN (22:46)
[2019-04-11] MEDS: DUONEB *Not for PRN Use IH SCH ×4 (02:27→19:14)
[2019-04-11] MEDS: SOLU-Medrol IV SCH ×2 (03:13→15:23)
[2019-04-11] MEDS: TESSALON PERLES PO SCH ×2 (03:17→11:23)
[2019-04-11] MEDS: CARDIZEM PO SCH ×4 (06:30→23:15)
[2019-04-11] MEDS: PULMICORT IH SCH ×2 (07:41→19:14)
--- NOTE | 2019-04-11 07:49 | Hem/Onc Progress Note ---
Assessment and Plan Non-small cell lung cancer of - adenocarcinoma. The patient came in with shortness of breath and chest pain. The patient has no insurance. He would need eGFR testing and other targeted agents testing and he would also need outpatient followup. History of chronic obstructive pulmonary disease, on Rx. d/w dr Garcia - reg palliative radiation evaluation. due thoracentesis pt wants to eat - Patient Problems (1) Lung cancer Current Visit: Yes Status: Chronic Qualifiers: Laterality: right Lung location: overlapping sites Qualified Code(s): C34.81 - Malignant neoplasm of overlapping sites of right bronchus and lung Subjective Date of service: 04/11/19 Principal diagnosis: lung ca Interval history: due thoracentesis Objective - Exam Narrative Exam: Pain - none General appearance distress - SOB Performance status limited self care Eyes - no icterus ENT no thrush LNs cervical not palpable Neck - normal ROM Respiratory Normal Breath sounds - decreased air entry CVS S1 S2 + Extremities normal temperature General GI Soft Rectal deferred male - deferred Skin warm Musculoskeletal moving normal Neurologically no focal deficit - Constitutional Vitals: Last Vital Signs Temp 97.4 F L 04/11/19 04:00 Pulse 138 H 04/11/19 07:43 Resp 19 04/11/19 07:43 BP 118/87 04/11/19 06:30 Pulse Ox 98 04/11/19 07:44 - Labs Lab Results: Laboratory Results - last 24 hr 04/10/19 04/10/19 04/10/19 08:33 11:29 16:05 POC Glucose 152 H 158 H 195 H Medications & Allergies - Medications Allergies/Adverse Reactions: Allergies No Known Allergies Allergy (Unverified 03/05/19 17:45) Home Medications: Home Medications Medication Instructions Recorded Confirmed Last Taken Type ALBUTEROL Inhaler (OR & NICU) 2 puff IH QID PRN 30 Days #1 vial 03/15/19 04/08/19 Unknown Rx [Proair] Benzonatate [Tessalon Perles] 200 mg PO Q8HR #14 capsule 03/15/19 04/08/19 Unknown Rx Ipratropium/Albuterol Sulfate 1 ampul IH TIDRT #30 ampul.neb 03/15/19 04/08/19 Unknown Rx [DUONEB *Not for PRN Use*] Temazepam [Restoril] 15 mg PO QHS PRN #7 capsule 03/15/19 04/08/19 Unknown Rx dilTIAZem [Cardizem] 60 mg PO Q6H #120 tablet 03/15/19 04/08/19 Unknown Rx oxyCODONE /ACETAMINOPHEN [Percocet 1 tab PO Q6H PRN #14 tablet 03/15/19 04/08/19 Unknown Rx 5/325 mg] Active Medications: Generic Name Dose Route Start Last Admin Trade Name Freq PRN Reason Stop Dose Admin Acetaminophen 650 mg 04/08/19 03:56 Tylenol PO Q4H PRN Pain MILD(1-3)/Fever >100.5/BOO Albuterol 2.5 mg 04/08/19 03:56 04/10/19 17:42 Proventil IH 2.5 mg Q3HRT PRN Administration Shortness Of Breath Albuterol/Ipratropium 1 ampul 04/08/19 08:00 04/11/19 07:41 Duoneb *Not For Prn Use* IH 1 ampul Q6HRT FRANCISCO JAVIER Administration Benzonatate 200 mg 04/09/19 11:00 04/11/19 03:17 Tessalon Perles PO Not Given Q8H FRANCISCO JAVIER Budesonide 0.5 mg 04/08/19 08:00 04/11/19 07:41 Pulmicort IH 0.5 mg Q12HRT FRANCISCO JAVIER Administration Diltiazem HCl 60 mg 04/09/19 11:00 04/11/19 06:30 Cardizem PO Not Given Q6H FRANCISCO JAVIER Enoxaparin Sodium 40 mg 04/08/19 10:00 04/10/19 10:50 Lovenox SUB-Q 40 mg QDAY@1000 FRANCISCO JAVIER Administration Famotidine 20 mg 04/10/19 10:00 04/10/19 10:51 Pepcid PO 20 mg QDAY FRANCISCO JAVIER Administration Folic Acid 1 mg 04/11/19 10:00 Folvite PO QDAY FRANCISCO JAVIER Furosemide 40 mg 04/10/19 10:00 04/10/19 10:52 Lasix IV 40 mg QDAY FRANCISCO JAVIER Administration Haloperidol Lactate 5 mg 04/09/19 16:42 04/10/19 02:27 Haldol IV 5 mg Q6H PRN Administration Unrespon. to mult. doses BZD's Levofloxacin/Dextrose 500 mg in 100 mls @ 100 mls/hr 04/09/19 16:00 04/10/19 10:53 Levaquin 500mg/100ml IV 04/14/19 15:59 100 mls/hr Q24HR FRANCISCO JAVIER Administration Protocol Lorazepam 1 mg 04/09/19 10:20 04/10/19 17:02 Ativan IV 1 mg Q4H PRN Administration Agitation Methylprednisolone Sodium Succinate 40 mg 04/09/19 16:00 04/11/19 03:13 Solu-Medrol IV 40 mg Q12H FRANCISCO JAVIER Administration Morphine Sulfate 2 mg 04/08/19 11:14 04/10/19 20:33 Morphine IV 2 mg Q4H PRN Administration Pain , Severe (7-10) Nicotine 14 mg 04/10/19 13:00 04/10/19 19:18 Habitrol TD 14 mg QDAY FRANCISCO JAVIER Administration Ondansetron HCl 4 mg 04/08/19 03:56 Zofran IV Q8H PRN Nausea And Vomiting Oxycodone/Acetaminophen 1 tab 04/08/19 03:56 04/10/19 22:46 Percocet 5/325 PO 1 tab Q6H PRN Administration Pain, Moderate (4-6) Sodium Chloride 10 ml 04/08/19 10:00 04/10/19 22:45 Sodium Chloride Flush Syringe 10 Ml IV 10 ml BID FRANCISCO JAVIER Administration Sodium Chloride 10 ml 04/08/19 03:56 04/08/19 22:15 Sodium Chloride Flush Syringe 10 Ml IV 10 ml PRN PRN Administration LINE FLUSH Thiamine HCl 100 mg 04/11/19 10:00 Vitamin B-1 PO QDAY [facility]
[2019-04-11] MEDS: SODIUM CHLORIDE FLUSH SYRINGE 10 ML IV SCH ×2 (09:10→22:06)
[2019-04-11] MEDS: LEVAQUIN 500MG/100ML 500 MG/100 ML BAG IV SCH (09:11)
[2019-04-11] MEDS: FOLVITE PO SCH (09:12)
[2019-04-11] MEDS: VITAMIN B-1 PO SCH (09:12)
[2019-04-11] MEDS: LASIX IV SCH (09:12)
[2019-04-11] MEDS: HABITROL TD SCH (09:12)
[2019-04-11] MEDS: PEPCID PO SCH (09:12)
[2019-04-11] MEDS: LOVENOX SUB-Q SCH (10:30)
--- NOTE | 2019-04-11 11:17 | Progress Note ---
Assessment and Plan Patient appears more alert today. He is noted to be in atrial fibrillation with RVR, he denies any current cardiac complaints, BPs borderline low. Optimize HR - initiate IV amio and cont PO cardizem. Pt with CHADS score of 1 and thus systemic AC in regards to AFib/AFlutter is not currently indicated. F/u echo reviewed- pt has small circumferential pericardial effusion, no evidence of tamponade. The patient has been seen in conjunction with Dr. Sanabria who agrees with assessment and plan of care. - Patient Problems (1) Atrial fibrillation with RVR Current Visit: No Status: Acute (2) Atrial flutter Current Visit: No Status: Acute (3) Acute respiratory distress Current Visit: Yes Status: Acute (4) Atelectasis of right lung Current Visit: Yes Status: Acute (5) Pericardial effusion without cardiac tamponade Current Visit: Yes Status: Acute (6) Pleural effusion Current Visit: Yes Status: Acute (7) Lung cancer Current Visit: Yes Status: Chronic Qualifiers: Laterality: right Lung location: overlapping sites Qualified Code(s): C34.81 - Malignant neoplasm of overlapping sites of right bronchus and lung (8) History of TB (tuberculosis) Current Visit: No Status: Chronic (9) Paroxysmal SVT (supraventricular tachycardia) Current Visit: Yes Status: Acute Subjective Date of service: 04/11/19 Principal diagnosis: lung ca Interval history: pt resting in bed, lethargic. in AFib with RVR HR 130s - 140s on tele. pt denies any current cardiac complaints. Objective Last Vital Signs Temp 97.9 F 04/11/19 08:00 Pulse 143 H 04/11/19 10:30 Resp 29 H 04/11/19 10:30 BP 116/71 04/11/19 10:30 Pulse Ox 96 04/11/19 10:30 - Physical Examination General: Cachectic HEENT: Positive: PERRL Neck: Positive: neck supple Cardiac: Positive: irregularly irregular, S1/S2, Tachycardia Lungs: Positive: Decreased Breath Sounds Neuro: Positive: Grossly Intact Abdomen: Positive: Unremarkable Skin: Positive: Clear Musculoskeletal: Normal Range of Motion Extremities: Present: normal - Imaging and Cardiology Echo: report reviewed (03/2019: LVEF of 55 to 60%, no pericardial effusion) - EKG Sinus rhythms and dysrhythmias: sinus tachycardia
[2019-04-11] MEDS ORDERED: CORDARONE 150 MG in D5W 97 ML IV ONE (12:00)
[2019-04-11] MEDS: CORDARONE 900 MG in D5W 482 ML IV SCH (12:30)
--- NOTE | 2019-04-11 13:13 | Consultation ---
REFERRING PHYSICIAN: Dr. Haider. CHIEF COMPLAINT: Unable to give chief complaint. PROFILE: This is a 68-year-old gentleman with locally advanced non-small cell carcinoma of the right lung, referred for palliative radiotherapy. CONCLUSION: 1. His diagnosis has a locally advanced non-small cell carcinoma of the right lung with complete atelectasis as seen on CT scan of the chest from 04/08/2019. 2. History of chronic obstructive pulmonary disease. 3. History of hypoxemia secondary to #1. 4. History of tuberculosis, diagnosed in 1986. RECOMMENDATION: If the patient's condition improves, we will consider palliative radiotherapy to his chest. We will plan to deliver dose of 30 Gy in 10 fractions. We will followup on him daily. ASSESSMENT: This is an unfortunate 68-year-old gentleman who apparently was diagnosed as having non-small cell carcinoma of the right lung dated March 2019. He did not follow up with a consultation with Dr. Haider. He represented to [facility] in respiratory distress. CT scan of the chest revealed complete atelectasis, collapse of the right lung with abrupt cut off of the right mainstem bronchus, which most likely is due to neoplasm. There is a small to moderate right pleural effusion. There is a moderate pericardial effusion seen. Otherwise, no other evidence of metastatic disease. He has been placed in the intensive care unit. He is on BiPAP therapy. He is now referred for consultation. PAST MEDICAL HISTORY: As above. PAST SURGICAL HISTORY: No surgical history. SOCIAL HISTORY: He is a former smoker. FAMILY HISTORY: No significant family history. MEDICATIONS: Albuterol inhaler, Tessalon Perles, Pulmicort, Cardizem, Lovenox, Lasix, Ativan, morphine. ALLERGIES: None known. PHYSICAL EXAMINATION: GENERAL: He is a very chronically ill-appearing gentleman, in intensive care unit bed on a BiPAP machine. VITAL SIGNS: Blood pressure 120/90, pulse is 100, respirations 20, afebrile. ECOG equals 3. Pain equals 0/10. HEENT: Normocephalic, atraumatic. Eyes were clear. LUNGS: Decreased breath sounds. CARDIOVASCULAR: Faint heart tones. ABDOMEN: Flat. No palpable masses. NEUROLOGIC: He is intact. DISCUSSION: This is an unfortunate 68-year-old gentleman with history of COPD and complete atelectasis of the right lung secondary to previously diagnosed malignancy. If his condition improves and he is discharged from the intensive care unit, we will consider palliative radiotherapy to the chest. We will plan to deliver dose of 30 Gy in 10 fractions. Risk of radiation including fatigue, esophagitis, cough and fever was discussed with the family's friend. We will follow up on this unfortunate gentleman. JOB# [id number] PATIENCE/MAHENDRA
--- NOTE | 2019-04-11 13:24 | Progress Note ---
Assessment and Plan Patient just undergone right thoracentesis by interventional radiology. About 500 ml of pleural fluid drained. Patient is on Vapotherm, FIO2 70%, O2 saturation 91. Having slight increase in work of breathing. Obtaining chest xray. Patient afebrile, B/P 107/75. Continue aerosolized bronchodilators, O2 supplementation. - Patient Problems (1) Acute respiratory distress Current Visit: Yes Status: Acute Plan to address problem: O2 supplementation throigh vapotherm 60%. Albuterol/atrovent aerosol tratments q 6 hours. Continue I/V solumedrol. Continue Levaquin. Continue Famotidine. Continue S/C Lovenox. Recommend chest PT. Chest xray Post thoracentesis. (2) Atelectasis of right lung Current Visit: Yes Status: Acute Plan to address problem: Patient undergone right thoracentesis. Aerosolized bronchodilators Chest PT. (3) Pleural effusion Current Visit: Yes Status: Acute Plan to address problem: Patient undergone right thoracentesis. Repeating chest xray. (4) Paroxysmal atrial flutter Current Visit: No Status: Acute Plan to address problem: Patient is on cardiazem Management as per cardiology. (5) Lung cancer Current Visit: Yes Status: Chronic Qualifiers: Laterality: right Lung location: overlapping sites Qualified Code(s): C34.81 - Malignant neoplasm of overlapping sites of right bronchus and lung Plan to address problem: Oncology consulted. Subjective Date of service: 04/11/19 Principal diagnosis: lung ca Interval history: Patient just undergone right thoracentesis by interventional radiology. About 500 ml of pleural fluid drained. Patient is on Vapotherm, FIO2 70%, O2 saturation 91. Having slight increase in work of breathing. Obtaining chest xray. Patient afebrile, B/P 107/75. Continue aerosolized bronchodilators, O2 supplementation. Objective Vital Signs - 12hr 04/11/19 04/11/19 04/11/19 01:30 01:40 01:50 Temperature Pulse Rate 89 84 93 H Pulse Rate [ Anterior Left Throughout] Pulse Rate [ From Monitor] Pulse Rate [ Left Dorsalis Pedis] Pulse Rate [ Right Dorsalis Pedis] Respiratory 21 21 23 Rate Respiratory Rate [Anterior Left Throughout ] Blood Pressure 112/66 112/66 112/66 O2 Sat by Pulse 96 98 93 Oximetry 04/11/19 04/11/19 04/11/19 02:00 02:10 02:20 Temperature Pulse Rate 92 H 87 81 Pulse Rate [ Anterior Left Throughout] Pulse Rate [ From Monitor] Pulse Rate [ Left Dorsalis Pedis] Pulse Rate [ Right Dorsalis Pedis] Respiratory 28 H 20 17 Rate Respiratory Rate [Anterior Left Throughout ] Blood Pressure 112/66 130/87 130/87 O2 Sat by Pulse 96 98 98 Oximetry 04/11/19 04/11/19 04/11/19 02:29 02:30 02:33 Temperature Pulse Rate 85 85 Pulse Rate [ 86 Anterior Left Throughout] Pulse Rate [ From Monitor] Pulse Rate [ Left Dorsalis Pedis] Pulse Rate [ Right Dorsalis Pedis] Respiratory 26 H 18 Rate Respiratory 27 H Rate [Anterior Left Throughout ] Blood Pressure 130/87 130/87 O2 Sat by Pulse 99 98 Oximetry 04/11/19 04/11/19 04/11/19 02:40 02:46 02:50 Temperature Pulse Rate 84 87 Pulse Rate [ 88 Anterior Left Throughout] Pulse Rate [ From Monitor] Pulse Rate [ Left Dorsalis Pedis] Pulse Rate [ Right Dorsalis Pedis] Respiratory 15 24 Rate Respiratory 22 Rate [Anterior Left Throughout ] Blood Pressure 130/87 130/87 O2 Sat by Pulse 99 97 Oximetry 04/11/19 04/11/19 04/11/19 03:00 03:10 03:20 Temperature Pulse Rate 83 82 105 H Pulse Rate [ Anterior Left Throughout] Pulse Rate [ From Monitor] Pulse Rate [ Left Dorsalis Pedis] Pulse Rate [ Right Dorsalis Pedis] Respiratory 17 18 24 Rate Respiratory Rate [Anterior Left Throughout ] Blood Pressure 115/77 115/77 115/77 O2 Sat by Pulse 97 98 82 L Oximetry 04/11/19 04/11/19 04/11/19 03:30 03:40 03:50 Temperature Pulse Rate 85 86 83 Pulse Rate [ Anterior Left Throughout] Pulse Rate [ From Monitor] Pulse Rate [ Left Dorsalis Pedis] Pulse Rate [ Right Dorsalis Pedis] Respiratory 16 15 16 Rate Respiratory Rate [Anterior Left Throughout ] Blood Pressure 115/77 115/77 115/77 O2 Sat by Pulse 97 96 98 Oximetry 04/11/19 04/11/19 04/11/19 04:00 04:10 04:20 Temperature 97.4 F L Pulse Rate 85 123 H 132 H Pulse Rate [ Anterior Left Throughout] Pulse Rate [ 139 H From Monitor] Pulse Rate [ 103 H Left Dorsalis Pedis] Pulse Rate [ 103 H Right Dorsalis Pedis] Respiratory 30 H 25 H 18 Rate Respiratory Rate [Anterior Left Throughout ] Blood Pressure 111/75 111/75 111/75 O2 Sat by Pulse 95 99 97 Oximetry 04/11/19 04/11/19 04/11/19 04:30 04:40 04:50 Temperature Pulse Rate 138 H 131 H 142 H Pulse Rate [ Anterior Left Throughout] Pulse Rate [ From Monitor] Pulse Rate [ Left Dorsalis Pedis] Pulse Rate [ Right Dorsalis Pedis] Respiratory 27 H 18 27 H Rate Respiratory Rate [Anterior Left Throughout ] Blood Pressure 111/75 111/75 111/75 O2 Sat by Pulse 93 95 93 Oximetry 04/11/19 04/11/19 04/11/19 05:00 05:10 05:20 Temperature Pulse Rate 134 H 143 H 143 H Pulse Rate [ Anterior Left Throughout] Pulse Rate [ From Monitor] Pulse Rate [ Left Dorsalis Pedis] Pulse Rate [ Right Dorsalis Pedis] Respiratory 32 H 23 19 Rate Respiratory Rate [Anterior Left Throughout ] Blood Pressure 107/71 114/80 114/80 O2 Sat by Pulse 95 96 95 Oximetry 04/11/19 04/11/19 04/11/19 05:30 05:40 05:50 Temperature Pulse Rate 131 H 144 H 145 H Pulse Rate [ Anterior Left Throughout] Pulse Rate [ From Monitor] Pulse Rate [ Left Dorsalis Pedis] Pulse Rate [ Right Dorsalis Pedis] Respiratory 18 20 24 Rate Respiratory Rate [Anterior Left Throughout ] Blood Pressure 114/80 114/80 114/80 O2 Sat by Pulse 97 97 89 Oximetry 04/11/19 04/11/19 04/11/19 06:00 06:10 06:20 Temperature Pulse Rate 135 H 137 H 138 H Pulse Rate [ Anterior Left Throughout] Pulse Rate [ From Monitor] Pulse Rate [ Left Dorsalis Pedis] Pulse Rate [ Right Dorsalis Pedis] Respiratory 17 15 19 Rate Respiratory Rate [Anterior Left Throughout ] Blood Pressure 118/87 118/87 118/87 O2 Sat by Pulse 98 98 98 Oximetry 04/11/19 04/11/19 04/11/19 06:30 06:40 06:50 Temperature Pulse Rate 141 H 145 H 143 H Pulse Rate [ Anterior Left Throughout] Pulse Rate [ From Monitor] Pulse Rate [ Left Dorsalis Pedis] Pulse Rate [ Right Dorsalis Pedis] Respiratory 18 28 H 26 H Rate Respiratory Rate [Anterior Left Throughout ] Blood Pressure 118/87 118/87 118/87 O2 Sat by Pulse 98 95 99 Oximetry 04/11/19 04/11/19 04/11/19 07:00 07:10 07:20 Temperature Pulse Rate 142 H 156 H 144 H Pulse Rate [ Anterior Left Throughout] Pulse Rate [ From Monitor] Pulse Rate [ Left Dorsalis Pedis] Pulse Rate [ Right Dorsalis Pedis] Respiratory 30 H 26 H 28 H Rate Respiratory Rate [Anterior Left Throughout ] Blood Pressure 118/87 138/73 138/73 O2 Sat by Pulse 91 96 98 Oximetry 04/11/19 04/11/19 04/11/19 07:30 07:40 07:43 Temperature Pulse Rate 144 H 151 H Pulse Rate [ 138 H Anterior Left Throughout] Pulse Rate [ From Monitor] Pulse Rate [ Left Dorsalis Pedis] Pulse Rate [ Right Dorsalis Pedis] Respiratory 21 25 H Rate Respiratory 19 Rate [Anterior Left Throughout ] Blood Pressure 138/73 138/73 O2 Sat by Pulse 87 94 Oximetry 04/11/19 04/11/19 04/11/19 07:44 07:50 08:00 Temperature 97.9 F Pulse Rate 139 H 132 H Pulse Rate [ Anterior Left Throughout] Pulse Rate [ 144 H From Monitor] Pulse Rate [ Left Dorsalis Pedis] Pulse Rate [ Right Dorsalis Pedis] Respiratory 17 18 Rate Respiratory Rate [Anterior Left Throughout ] Blood Pressure 138/73 138/73 O2 Sat by Pulse 98 99 98 Oximetry 04/11/19 04/11/19 04/11/19 08:10 08:20 08:30 Temperature Pulse Rate 140 H 141 H 144 H Pulse Rate [ Anterior Left Throughout] Pulse Rate [ From Monitor] Pulse Rate [ Left Dorsalis Pedis] Pulse Rate [ Right Dorsalis Pedis] Respiratory 19 20 25 H Rate Respiratory Rate [Anterior Left Throughout ] Blood Pressure 102/62 102/62 102/62 O2 Sat by Pulse 97 92 96 Oximetry 04/11/19 04/11/19 04/11/19 08:40 08:50 09:00 Temperature Pulse Rate 133 H 152 H 134 H Pulse Rate [ Anterior Left Throughout] Pulse Rate [ From Monitor] Pulse Rate [ Left Dorsalis Pedis] Pulse Rate [ Right Dorsalis Pedis] Respiratory 18 36 H 19 Rate Respiratory Rate [Anterior Left Throughout ] Blood Pressure 102/62 102/62 102/62 O2 Sat by Pulse 98 96 96 Oximetry 04/11/19 04/11/19 04/11/19 09:10 09:20 09:30 Temperature Pulse Rate 142 H 148 H 147 H Pulse Rate [ Anterior Left Throughout] Pulse Rate [ From Monitor] Pulse Rate [ Left Dorsalis Pedis] Pulse Rate [ Right Dorsalis Pedis] Respiratory 23 26 H 24 Rate Respiratory Rate [Anterior Left Throughout ] Blood Pressure 110/87 110/87 110/87 O2 Sat by Pulse 91 95 97 Oximetry 04/11/19 04/11/19 04/11/19 09:40 09:50 10:00 Temperature Pulse Rate 145 H 147 H 156 H Pulse Rate [ Anterior Left Throughout] Pulse Rate [ From Monitor] Pulse Rate [ Left Dorsalis Pedis] Pulse Rate [ Right Dorsalis Pedis] Respiratory 21 18 20 Rate Respiratory Rate [Anterior Left Throughout ] Blood Pressure 110/87 110/87 116/71 O2 Sat by Pulse 97 98 99 Oximetry 04/11/19 04/11/19 04/11/19 10:10 10:20 10:30 Temperature Pulse Rate 148 H 149 H 143 H Pulse Rate [ Anterior Left Throughout] Pulse Rate [ From Monitor] Pulse Rate [ Left Dorsalis Pedis] Pulse Rate [ Right Dorsalis Pedis] Respiratory 22 19 29 H Rate Respiratory Rate [Anterior Left Throughout ] Blood Pressure 116/71 116/71 116/71 O2 Sat by Pulse 96 94 96 Oximetry 04/11/19 04/11/19 11:22 12:00 Temperature 98.6 F Pulse Rate 152 H Pulse Rate [ Anterior Left Throughout] Pulse Rate [ From Monitor] Pulse Rate [ Left Dorsalis Pedis] Pulse Rate [ Right Dorsalis Pedis] Respiratory Rate Respiratory Rate [Anterior Left Throughout ] Blood Pressure 107/75 O2 Sat by Pulse Oximetry Constitutional: alert, appears uncomfortable Eyes: non-icteric ENT: oropharynx moist Neck: supple, no lymphadenopathy Ascultation: Bilateral: other (Complete opacification of right lung.) Cardiovascular: regular rate and rhythm Gastrointestinal: normoactive bowel sounds, soft Integumentary: normal Extremities: no cyanosis, no edema Neurologic: non-focal exam, pupils equal and round Psychiatric: depressed CBC and BMP: 04/09/19 03:42 04/09/19 03:42 ABG, PT/INR, D-dimer: ABG POC ABG pH 7.347 (7.35-7.45) L 04/08/19 21:07 POC ABG pCO2 51.0 (35-45) H 04/08/19 21:07 POC ABG pO2 308 (80-105) H 04/08/19 21:07 POC ABG HCO3 28.0 (22-26 mml/L) 04/08/19 21:07 POC ABG Total CO2 29 (23-27mmol/L) 04/08/19 21:07 POC ABG O2 Sat 100 04/08/19 21:07 PT/INR, D-dimer PT 15.7 Sec. (12.2-14.9) H 04/07/19 23:50 INR 1.28 (0.87-1.13) H 04/07/19 23:50 4399.55 ng/mlDDU (0-234) H 04/07/19 23:50 Abnormal lab findings: Abnormal Labs 04/07/19 04/07/19 04/07/19 23:47 23:50 23:50 WBC 14.8 H RBC 3.03 L Hgb 9.5 L Hct 27.7 L RDW 16.4 H Plt Count 494 H Lymph % (Auto) 12.7 L [place] % (Auto) 12.1 H [place] # 1.8 H Seg Neutrophils % 71.9 H Seg Neuts % (Manual) Lymphocytes % (Manual) Nucleated RBC % Seg Neutrophils # 10.7 H Seg Neutrophils # Man Lymphocytes # (Manual) PT 15.7 H INR 1.28 H D-Dimer 4399.55 H POC ABG pH POC ABG pCO2 POC ABG pO2 Creatinine 0.5 L Glucose 142 H POC Glucose Alkaline Phosphatase 468 H Lactate Dehydrogenase C-Reactive Protein Albumin 2.8 L 04/08/19 04/09/19 04/09/19 21:07 03:42 03:42 WBC 19.9 H RBC 3.52 L Hgb 10.8 L Hct 33.1 L RDW 16.8 H Plt Count Lymph % (Auto) [place] % (Auto) [place] # Seg Neutrophils % Seg Neuts % (Manual) 94.0 H Lymphocytes % (Manual) 3.0 L Nucleated RBC % 1.0 H Seg Neutrophils # Seg Neutrophils # Man 18.7 H Lymphocytes # (Manual) 0.6 L PT INR D-Dimer POC ABG pH 7.347 L POC ABG pCO2 51.0 H POC ABG pO2 308 H Creatinine 0.5 L Glucose 162 H POC Glucose Alkaline Phosphatase Lactate Dehydrogenase C-Reactive Protein Albumin 04/09/19 04/09/19 04/10/19 15:47 15:47 08:33 WBC RBC Hgb Hct RDW Plt Count Lymph % (Auto) [place] % (Auto) [place] # Seg Neutrophils % Seg Neuts % (Manual) Lymphocytes % (Manual) Nucleated RBC % Seg Neutrophils # Seg Neutrophils # Man Lymphocytes # (Manual) PT INR D-Dimer POC ABG pH POC ABG pCO2 POC ABG pO2 Creatinine Glucose POC Glucose 152 H Alkaline Phosphatase Lactate Dehydrogenase 371 H C-Reactive Protein 21.80 H Albumin 04/10/19 04/10/19 11:29 16:05 WBC RBC Hgb Hct RDW Plt Count Lymph % (Auto) [place] % (Auto) [place] # Seg Neutrophils % Seg Neuts % (Manual) Lymphocytes % (Manual) Nucleated RBC % Seg Neutrophils # Seg Neutrophils # Man Lymphocytes # (Manual) PT INR D-Dimer POC ABG pH POC ABG pCO2 POC ABG pO2 Creatinine Glucose POC Glucose 158 H 195 H Alkaline Phosphatase Lactate Dehydrogenase C-Reactive Protein Albumin
[2019-04-11] MEDS: PERCOCET 5/325 PO PRN ×2 (13:53→22:04)
--- NOTE | 2019-04-11 14:10 | Procedure Note ---
Date of procedure: 04/11/19 Pre-op diagnosis: right pleural effusion Post-op diagnosis: same Procedure: US thoracentesis, right Findings: moderate loculated right pleural fluid Anesthesia: local Surgeon: FIORELLA EMANUEL Estimated blood loss: none Pathology: list (120cc) Specimen disposition: to lab Condition: stable Disposition: floor
--- NOTE | 2019-04-11 14:17 | Ultrasound Report ---
ULTRASOUND-GUIDED THORACENTESIS HISTORY: Large right pleural effusion. Recent diagnosis of lung cancer COMPARISON: None PROCEDURE: The risks (including but not limited to bleeding, infection, and pneumothorax) and benefi ts were explained to the patient and informed consent was obtained. A time out procedure was perform ed. Ultrasound was used to evaluate the right pleural effusion and locate the optimal site for needle ent ry. Please note the initial scan demonstrates mild loculation to this pleural fluid collection. Once the skin was marked, the procedure site was prepped and draped in the usual sterile fashion and lidoc bee was used for local anesthesia. A skin kacy was made and a 5-Burkin[place] thoracentesis catheter was p laced. The patient was monitored closely throughout the procedure, and a total of 500 mL of slightly bloody fluid was aspirated. Samples were sent to the lab for further evaluation per the primary cli nicians orders. The patient tolerated the procedure well with no complications. A post-procedure chest x-ray was imm ediately ordered. IMPRESSION: Successful thoracentesis as above with a total of 500 mL of slightly bloody fluid aspirat ed. The right pleural effusion is mildly loculated. Signer Name: Andrzej Christopher Jr, MD Signed: 04/11/2019 2:13 PM Workstation Name: [id number]
--- NOTE | 2019-04-11 17:01 | XRay Report ---
CHEST 1 VIEW INDICATION / CLINICAL INFORMATION: right pleural effusion, recent thora. COMPARISON: 04/09/2019 FINDINGS: SUPPORT DEVICES: None. HEART / MEDIASTINUM: Unchanged LUNGS / PLEURA: Complete opacification of the right hemithorax persists. There may be some improvemen t in right lower lobe compressive atelectasis. Severe interstitial changes throughout the left lung p ersists. No improvement in the interim. Signer Name: Marlon Berrios MD Signed: 04/11/2019 4:56 PM Workstation Name: [id number]
--- NOTE | 2019-04-11 17:48 | Progress Note ---
Assessment and Plan Assessment and plan: Difficulty breathing History of present illness: 68-year-old male who is a former smoker with history of COPD, remote history of tuberculosis, newly diagnosed with non-small cell lung carcinoma (03/2019) presents to [facility] ED with complaints of difficulty with breathing, [place] and cough Review of chart shows that patient was recently diagnosed with non-small cell lung cancer last month and advised to follow-up with Dr. Haider outpatient. Patient states he was unable to do so due to finances. Past History Past Medical History: cancer (lung cancer diagnosed 03/2019), COPD, other (remote history of TB diagnosis 1986, treated for 6 months, patient had negative AFB 4 in March 2019) CTA chest; 1. There is complete atelectasis/collapse of the right lung with abrupt cut off of the right mainstem bronchus which may be due to mucous plug or neoplasm. Bronchoscopy is recommended. 2. Small to moderate right pleural effusion, increased in size. 3. Moderate pericardial effusion, new since the prior. 4. No acute PTE is seen. Acute hypoxic respiratory failure/Right lung collapse/ COPD flare ; cont high flow oxygen, steroids and nebs, mgt per pulm etoh abuse/withdrawal; ciwa protocol Agitation/anxiety; Ativan as needed Moderate pericardial effusion- seen on CTA chest 04/07/2019; chest pain Cardiology input appreciated, there is a moderate size pericardial effusion without tamponade not, follow-up echo Non-small cell lung carcinoma-newly diagnosed 03/2019 oncologist consult pending SIRS; no evidence of infection at this time BC pending Remote history of TB- 1986 (AFB 4 negative 03/2019; patient has been cleared by ID) History of tobacco abuse Preventative health counseling performed for 17 minutes Smoking cessation counseling performed for 10 minutes, nicotine patches ordered -surgical services coordinator consult place due to financial limitations with treatments DVT PPX on Lovenox Critical care time 35 minutes History Interval history: Patient continues to have shortness of breath and cough no fever Has been anxious and agitated No vomiting or seizures, no chest pain Hospitalist Physical - Physical exam Narrative exam: General.: severe resp distress, nontoxic HEENT: Moist mucous membranes, extraocular muscles intact, no lymphadenopathy Neck: supple Cardiac: S1-S2 heard Lungs: Severely decreased air entry, dull on right Abdomen: soft , nontender, nondistended, bowel sounds positive Extremities: no edema clubbing or cyanosis Skin: no rash or lesions Neurologic: no gross focal deficits Psych: calm, and cooperative - Constitutional Vitals: Temp Pulse Resp BP Pulse Ox 98.6 F 131 H 28 H 103/65 97 04/11/19 12:00 04/11/19 17:42 04/11/19 16:00 04/11/19 17:42 04/11/19 16:00 General appearance: Present: severe distress (supplemental oxygen via face mask) Results - Labs CBC & Chem 7: 04/13/19 14:03 04/13/19 04:25 Labs: Laboratory Last Values WBC 19.9 K/mm3 (4.5-11.0) H 04/09/19 03:42 RBC 3.52 M/mm3 (3.65-5.03) L 04/09/19 03:42 Hgb 10.8 gm/dl (11.8-15.2) L 04/09/19 03:42 Hct 33.1 % (35.5-45.6) L 04/09/19 03:42 MCV 94 fl (84-94) 04/09/19 03:42 MCH 31 pg (28-32) 04/09/19 03:42 MCHC 33 % (32-34) 04/09/19 03:42 RDW 16.8 % (13.2-15.2) H 04/09/19 03:42 Plt Count 263 K/mm3 (140-440) 04/09/19 03:42 Lymph % (Auto) 12.7 % (13.4-35.0) L 04/07/19 23:47 [place] % (Auto) 12.1 % (0.0-7.3) H 04/07/19 23:47 Eos % (Auto) 2.7 % (0.0-4.3) 04/07/19 23:47 Baso % (Auto) 0.6 % (0.0-1.8) 04/07/19 23:47 Lymph # 1.9 K/mm3 (1.2-5.4) 04/07/19 23:47 [place] # 1.8 K/mm3 (0.0-0.8) H 04/07/19 23:47 Eos # 0.4 K/mm3 (0.0-0.4) 04/07/19 23:47 Baso # 0.1 K/mm3 (0.0-0.1) 04/07/19 23:47 Add Manual Diff Complete 04/09/19 03:42 Total Counted 100 04/09/19 03:42 Seg Neutrophils % Refrigeration Lead 04/09/19 03:42 Seg Neuts % (Manual) 94.0 % (40.0-70.0) H 04/09/19 03:42 0 % 04/09/19 03:42 3.0 % (13.4-35.0) L 04/09/19 03:42 Reactive Lymphs % (Man) 0 % 04/09/19 03:42 2.0 % (0.0-7.3) 04/09/19 03:42 0 % (0.0-4.3) 04/09/19 03:42 0 % (0.0-1.8) 04/09/19 03:42 0 % 04/09/19 03:42 1.0 % 04/09/19 03:42 0 % 04/09/19 03:42 0 % 04/09/19 03:42 Nucleated RBC % 1.0 % (0.0-0.9) H 04/09/19 03:42 Seg Neutrophils # 10.7 K/mm3 (1.8-7.7) H 04/07/19 23:47 Seg Neutrophils # Man 18.7 K/mm3 (1.8-7.7) H 04/09/19 03:42 Band Neutrophils # 0.0 K/mm3 04/09/19 03:42 0.6 K/mm3 (1.2-5.4) L 04/09/19 03:42 Abs React Lymphs (Man) 0.0 K/mm3 04/09/19 03:42 0.4 K/mm3 (0.0-0.8) 04/09/19 03:42 0.0 K/mm3 (0.0-0.4) 04/09/19 03:42 0.0 K/mm3 (0.0-0.1) 04/09/19 03:42 0.0 K/mm3 04/09/19 03:42 0.2 K/mm3 04/09/19 03:42 0.0 K/mm3 04/09/19 03:42 Blast Cells # 0.0 K/mm3 04/09/19 03:42 WBC Morphology Not Reportable 04/09/19 03:42 Hypersegmented Neuts Not Reportable 04/09/19 03:42 Hyposegmented Neuts Not Reportable 04/09/19 03:42 Hypogranular Neuts Not Reportable 04/09/19 03:42 Not Reportable 04/09/19 03:42 Not Reportable 04/09/19 03:42 Not Reportable 04/09/19 03:42 Not Reportable 04/09/19 03:42 Not Reportable 04/09/19 03:42 Not Reportable 04/09/19 03:42 Consistent w auto 04/09/19 03:42 Not Reportable 04/09/19 03:42 Plt Clumps, EDTA Not Reportable 04/09/19 03:42 Not Reportable 04/09/19 03:42 Not Reportable 04/09/19 03:42 Not Reportable 04/09/19 03:42 Plt Morphology Comment Not Reportable 04/09/19 03:42 RBC Morphology Normal 04/09/19 03:42 Dimorphic RBCs Not Reportable 04/09/19 03:42 Not Reportable 04/09/19 03:42 Not Reportable 04/09/19 03:42 Not Reportable 04/09/19 03:42 Not Reportable 04/09/19 03:42 Not Reportable 04/09/19 03:42 Not Reportable 04/09/19 03:42 Not Reportable 04/09/19 03:42 Not Reportable 04/09/19 03:42 Not Reportable 04/09/19 03:42 Not Reportable 04/09/19 03:42 Not Reportable 04/09/19 03:42 Not Reportable 04/09/19 03:42 Not Reportable 04/09/19 03:42 Not Reportable 04/09/19 03:42 Not Reportable 04/09/19 03:42 Not Reportable 04/09/19 03:42 Not Reportable 04/09/19 03:42 Not Reportable 04/09/19 03:42 Not Reportable 04/09/19 03:42 Acanthocytes (Spur) Not Reportable 04/09/19 03:42 Rouleaux Not Reportable 04/09/19 03:42 Not Reportable 04/09/19 03:42 Not Reportable 04/09/19 03:42 Not Reportable 04/09/19 03:42 Not Reportable 04/09/19 03:42 Hem Pathologist Commnt No 04/09/19 03:42 PT 15.7 Sec. (12.2-14.9) H 04/07/19 23:50 INR 1.28 (0.87-1.13) H 04/07/19 23:50 APTT 36.5 Sec. (24.2-36.6) 04/07/19 23:50 4399.55 ng/mlDDU (0-234) H 04/07/19 23:50 POC ABG pH 7.347 (7.35-7.45) L 04/08/19 21:07 POC ABG pCO2 51.0 (35-45) H 04/08/19 21:07 POC ABG pO2 308 (80-105) H 04/08/19 21:07 POC ABG HCO3 28.0 (22-26 mml/L) 04/08/19 21:07 POC ABG Total CO2 29 (23-27mmol/L) 04/08/19 21:07 POC ABG O2 Sat 100 04/08/19 21:07 POC ABG Base Excess 2 ((-2) - (+3)mmol/L) 04/08/19 21:07 100 % 04/08/19 21:07 Sodium 142 mmol/L (137-145) 04/09/19 03:42 Potassium 4.7 mmol/L (3.6-5.0) D 04/09/19 03:42 Chloride 103.1 mmol/L (98-107) 04/09/19 03:42 Carbon Dioxide 27 mmol/L (22-30) 04/09/19 03:42 17 mmol/L 04/09/19 03:42 BUN 18 mg/dL (9-20) 04/09/19 03:42 0.5 mg/dL (0.8-1.5) L 04/09/19 03:42 Estimated GFR > 60 ml/min 04/09/19 03:42 36 % 04/09/19 03:42 Glucose 162 mg/dL (75-100) H 04/09/19 03:42 POC Glucose 195 (70-105) H 04/10/19 16:05 Lactic Acid 1.70 mmol/L (0.7-2.0) 04/08/19 04:04 Calcium 9.8 mg/dL (8.4-10.2) 04/09/19 03:42 Phosphorus 4.00 mg/dL (2.5-4.5) 04/09/19 16:53 Magnesium 2.10 mg/dL (1.7-2.3) 04/09/19 16:53 0.50 mg/dL (0.1-1.2) 04/07/19 23:50 AST 31 units/L (5-40) 04/07/19 23:50 ALT 40 units/L (7-56) 04/07/19 23:50 468 units/L (35-129) H 04/07/19 23:50 371 units/L (91-180) H 04/09/19 15:47 < 0.010 ng/mL (0.00-0.029) 04/08/19 01:19 21.80 mg/dL (0.00-1.30) H 04/09/19 15:47 NT-Pro-B Natriuret Pep 361.4 pg/mL (0-900) 04/07/19 23:47 6.7 g/dL (6.3-8.2) 04/07/19 23:50 2.8 g/dL (3.9-5) L 04/07/19 23:50 0.7 % 04/07/19 23:50 Active Medications - Current Medications Current Medications: Generic Name Dose Route Start Last Admin Trade Name Maurice PRN Reason Stop Dose Admin Acetaminophen 650 mg 04/08/19 03:56 Tylenol PO Q4H PRN Pain MILD(1-3)/Fever >100.5/BOO Albuterol 2.5 mg 04/08/19 03:56 04/10/19 17:42 Proventil IH 2.5 mg Q3HRT PRN Administration Shortness Of Breath Albuterol/Ipratropium 1 ampul 04/08/19 08:00 04/11/19 16:26 Duoneb *Not For Prn Use* IH 1 ampul Q6HRT FRANCISCO JAVIER Administration Benzonatate 200 mg 04/09/19 11:00 04/11/19 11:23 Tessalon Perles PO 200 mg Q8H FRANCISCO JAVIER Administration Budesonide 0.5 mg 04/08/19 08:00 04/11/19 07:41 Pulmicort IH 0.5 mg Q12HRT FRANCISCO JAVIER Administration Diltiazem HCl 60 mg 04/09/19 11:00 04/11/19 17:42 Cardizem PO 60 mg Q6H FRANCISCO JAVIER Administration Enoxaparin Sodium 40 mg 04/08/19 10:00 04/11/19 10:30 Lovenox SUB-Q Not Given QDAY@1000 FRANCISCO JAVIER Famotidine 20 mg 04/10/19 10:00 04/11/19 09:12 Pepcid PO 20 mg QDAY FRANCISCO JAVIER Administration Folic Acid 1 mg 04/11/19 10:00 04/11/19 09:12 Folvite PO 1 mg QDAY FRANCISCO JAVIER Administration Furosemide 40 mg 04/10/19 10:00 04/11/19 09:12 Lasix IV 40 mg QDAY FRANCISCO JAVIER Administration Haloperidol Lactate 5 mg 04/09/19 16:42 04/10/19 02:27 Haldol IV 5 mg Q6H PRN Administration Unrespon. to mult. doses BZD's Levofloxacin/Dextrose 500 mg in 100 mls @ 100 mls/hr 04/09/19 16:00 04/11/19 09:11 Levaquin 500mg/100ml IV 04/14/19 15:59 100 mls/hr Q24HR FRANCISCO JAVIER Administration Protocol Amiodarone HCl 900 mg/ 500 mls @ 33.333 mls/hr 04/11/19 12:00 04/11/19 12:30 Dextrose IV 1 mg/min DIRECT FRANCISCO JAVIER 33.333 mls/hr Administration Protocol 1 MG/MIN Lorazepam 1 mg 04/09/19 10:20 04/10/19 17:02 Ativan IV 1 mg Q4H PRN Administration Agitation Methylprednisolone Sodium Succinate 40 mg 04/09/19 16:00 04/11/19 15:23 Solu-Medrol IV 40 mg Q12H FRANCISCO JAVIER Administration Morphine Sulfate 2 mg 04/08/19 11:14 04/10/19 20:33 Morphine IV 2 mg Q4H PRN Administration Pain , Severe (7-10) Nicotine 14 mg 04/10/19 13:00 04/11/19 09:12 Habitrol TD 14 mg QDAY FRANCISCO JAVIER Administration Ondansetron HCl 4 mg 04/08/19 03:56 Zofran IV Q8H PRN Nausea And Vomiting Oxycodone/Acetaminophen 1 tab 04/08/19 03:56 04/11/19 13:53 Percocet 5/325 PO 1 tab Q6H PRN Administration Pain, Moderate (4-6) Sodium Chloride 10 ml 04/08/19 10:00 04/11/19 09:10 Sodium Chloride Flush Syringe 10 Ml IV 10 ml BID FRANCISCO JAVIER Administration Sodium Chloride 10 ml 04/08/19 03:56 04/08/19 22:15 Sodium Chloride Flush Syringe 10 Ml IV 10 ml PRN PRN Administration LINE FLUSH Thiamine HCl 100 mg 04/11/19 10:00 04/11/19 09:12 Vitamin B-1 PO 100 mg QDAY FRANCISCO JAVIER Administration Nutrition/Malnutrition Assess - Dietary Evaluation Nutrition/Malnutrition Findings: Nutrition Notes Start: 04/09/19 13:11 Freq: Status: Active Protocol: Document 04/09/19 13:11 RM (Rec: 04/09/19 13:18 RM [email or web address]) Nutrition Notes Need for Assessment generated from: [facility] Initial or Follow up Assessment Current Diagnosis COPD Other Pertinent Diagnosis Lung CA, Collapse of R lung Current Diet Cardiac Labs/Tests Reviewed Pertinent Medications Solu-Medrol Height 5 ft 4 in Weight 55.3 kg [place] Body Weight (kg) 59.09 BMI 20.9 Subjective/Other Information Screened for malnutrition. Pt asleep at time of visit. Noted breakfast at bedside w/ 50% eaten. Percent of energy/protein needs met: 70%/63% Burn Absent Trauma Absent #1 Nutrition Diagnosis Inadequate oral intake Etiology lung CA, collapse of R lung As Evidenced by Signs and Symptoms breakfast at bedside w/50% eaten Is patient on ventilator? No Is Patient Ambulatory and/or Out of Bed No REE-([facility]-confined to bed) [phone] Calculation Used for Recommendations [facility] Additional Notes Protein Needs: 66-111g (1.2-2g /kg) Fluid Needs: 1 ml/kcal Nutrition Intervention Change Diet Order: Continue current Add Supplement/Snack (indicate name/kcal Ensure Enlive 1 daily /protein ) Provides kCal: 350 Provides Protein (gm) 20 Goal #1 Meet at least 75% of calorie and protein needs via PO and ONS intakes Anticipated Discharge Needs: Cardiac diet Follow-Up By: 04/12/19 Additional Comments Follow for PO and ONS intakes, malnutrition assessment
[2019-04-12] MEDS: DUONEB *Not for PRN Use IH SCH ×4 (02:12→18:59)
[2019-04-12] MEDS: TESSALON PERLES PO SCH ×4 (03:06→22:25)
[2019-04-12] MEDS: SOLU-Medrol IV SCH ×2 (04:05→15:16)
[2019-04-12] MEDS: CARDIZEM PO SCH ×4 (05:36→22:19)
[2019-04-12] MEDS: PULMICORT IH SCH ×2 (08:49→18:59)
[2019-04-12] MEDS: HABITROL TD SCH (09:27)
[2019-04-12] MEDS: SODIUM CHLORIDE FLUSH SYRINGE 10 ML IV SCH ×2 (09:29→22:31)
[2019-04-12] MEDS: PERCOCET 5/325 PO PRN ×2 (09:29→19:02)
[2019-04-12] MEDS: LOVENOX SUB-Q SCH (09:30)
[2019-04-12] MEDS: FOLVITE PO SCH (09:30)
[2019-04-12] MEDS: LEVAQUIN 500MG/100ML 500 MG/100 ML BAG IV SCH (09:30)
[2019-04-12] MEDS: LASIX IV SCH (09:30)
[2019-04-12] MEDS: PEPCID PO SCH (09:31)
[2019-04-12] MEDS: VITAMIN B-1 PO SCH (09:31)
--- NOTE | 2019-04-12 11:32 | Progress Note ---
Assessment and Plan Convert IV amio to PO amio. The patient has been seen in conjunction with Dr. Sanabria who agrees with assessment and plan of care. - Patient Problems (1) Atrial fibrillation with RVR Current Visit: No Status: Acute (2) Atrial flutter Current Visit: No Status: Acute (3) Acute respiratory distress Current Visit: Yes Status: Acute (4) Atelectasis of right lung Current Visit: Yes Status: Acute (5) Pericardial effusion without cardiac tamponade Current Visit: Yes Status: Acute (6) Pleural effusion Current Visit: Yes Status: Acute (7) Lung cancer Current Visit: Yes Status: Chronic Qualifiers: Laterality: right Lung location: overlapping sites Qualified Code(s): C34.81 - Malignant neoplasm of overlapping sites of right bronchus and lung (8) History of TB (tuberculosis) Current Visit: No Status: Chronic (9) Paroxysmal SVT (supraventricular tachycardia) Current Visit: Yes Status: Acute Subjective Date of service: 04/12/19 Principal diagnosis: lung ca Interval history: pt resting in bed, appears more alert today. pt denies any current cardiac complaints. pt converted to SR overnight, amio gtt infusing. Objective Last Vital Signs Temp 97.7 F 04/12/19 08:00 Pulse 77 04/12/19 09:06 Resp 18 04/12/19 09:06 BP 121/76 04/12/19 08:00 Pulse Ox 99 04/12/19 08:00 - Physical Examination General: Cachectic HEENT: Positive: PERRL Neck: Positive: neck supple Cardiac: Positive: Reg Rate and Rhythm, S1/S2 Lungs: Positive: Decreased Breath Sounds Neuro: Positive: Grossly Intact Abdomen: Positive: Unremarkable Skin: Positive: Clear Musculoskeletal: Normal Range of Motion Extremities: Present: normal - Imaging and Cardiology Echo: report reviewed (03/2019: LVEF of 55 to 60%, no pericardial effusion) - EKG Sinus rhythms and dysrhythmias: sinus tachycardia
[2019-04-12] MEDS: CORDARONE PO SCH ×2 (11:53→22:19)
[2019-04-12] MEDS: CORDARONE 900 MG in D5W 482 ML IV SCH (12:41)
--- NOTE | 2019-04-12 15:15 | Progress Note ---
Assessment and Plan Patient is sleeping on Vapotherm, FIO2 70%, O2 saturation 100%. Patient is weak but no acute respiratory distress. Patient afebrile, B/P 107/75. Decrease FIO2 to 60%. Post thoracentesis CXR still shows right sided opacification. No obvious pneumothorax. - Patient Problems (1) Acute respiratory distress Current Visit: Yes Status: Acute Plan to address problem: O2 supplementation through vapotherm 60%. Albuterol/atrovent aerosol tratments q 6 hours. Continue I/V solumedrol. Continue Levaquin. Continue Famotidine. Continue S/C Lovenox. Recommend chest PT. (2) Atelectasis of right lung Current Visit: Yes Status: Acute Plan to address problem: Patient undergone right thoracentesis on 04/11/19. Aerosolized bronchodilators Chest PT. (3) Pleural effusion Current Visit: Yes Status: Acute Plan to address problem: Patient undergone right thoracentesis 04/11/19. (4) Paroxysmal atrial flutter Current Visit: No Status: Acute Plan to address problem: Patient is on cardiazem Management as per cardiology. (5) Lung cancer Current Visit: Yes Status: Chronic Qualifiers: Laterality: right Lung location: overlapping sites Qualified Code(s): C34.81 - Malignant neoplasm of overlapping sites of right bronchus and lung Plan to address problem: Oncology consulted. Subjective Date of service: 04/12/19 Principal diagnosis: lung ca Interval history: Patient is sleeping on Vapotherm, FIO2 70%, O2 saturation 100%. Patient is weak but no acute respiratory distress. Patient afebrile, B/P 107/75. Decrease FIO2 to 60%. Post thoracentesis CXR still shows right sided opacification. No obvious pneumothorax. Objective Vital Signs - 12hr 04/12/19 04/12/19 04/12/19 04:00 05:01 05:36 Temperature 97.8 F Pulse Rate 81 81 81 Pulse Rate [ Anterior Left Throughout] Pulse Rate [ 113 H Bilateral Radial] Pulse Rate [ 82 From Monitor] Respiratory 22 21 Rate Respiratory Rate [Anterior Left Throughout ] Blood Pressure 113/73 133/99 132/90 O2 Sat by Pulse 100 100 Oximetry 04/12/19 04/12/19 04/12/19 06:00 07:00 08:00 Temperature 97.7 F Pulse Rate 78 79 76 Pulse Rate [ Anterior Left Throughout] Pulse Rate [ Bilateral Radial] Pulse Rate [ 81 From Monitor] Respiratory 16 16 18 Rate Respiratory Rate [Anterior Left Throughout ] Blood Pressure 121/76 126/82 121/76 O2 Sat by Pulse 100 100 98 Oximetry 04/12/19 04/12/19 04/12/19 08:49 09:00 09:06 Temperature Pulse Rate 76 Pulse Rate [ 81 77 Anterior Left Throughout] Pulse Rate [ Bilateral Radial] Pulse Rate [ From Monitor] Respiratory 20 Rate Respiratory 18 18 Rate [Anterior Left Throughout ] Blood Pressure 173/111 O2 Sat by Pulse 100 Oximetry 04/12/19 04/12/19 04/12/19 10:00 11:00 11:44 Temperature Pulse Rate 78 78 76 Pulse Rate [ Anterior Left Throughout] Pulse Rate [ Bilateral Radial] Pulse Rate [ From Monitor] Respiratory 17 19 Rate Respiratory Rate [Anterior Left Throughout ] Blood Pressure 123/75 117/78 123/75 O2 Sat by Pulse 99 96 Oximetry 04/12/19 12:00 Temperature 97.6 F Pulse Rate 80 Pulse Rate [ Anterior Left Throughout] Pulse Rate [ Bilateral Radial] Pulse Rate [ 79 From Monitor] Respiratory 23 Rate Respiratory Rate [Anterior Left Throughout ] Blood Pressure 117/78 O2 Sat by Pulse 97 Oximetry Constitutional: alert, appears uncomfortable Eyes: non-icteric ENT: oropharynx moist Neck: supple, no lymphadenopathy Ascultation: Bilateral: other (Complete opacification of right lung.) Cardiovascular: regular rate and rhythm Gastrointestinal: normoactive bowel sounds, soft Integumentary: normal Extremities: no cyanosis, no edema Neurologic: non-focal exam, pupils equal and round Psychiatric: depressed CBC and BMP: 04/09/19 03:42 04/09/19 03:42 ABG, PT/INR, D-dimer: ABG POC ABG pH 7.347 (7.35-7.45) L 04/08/19 21:07 POC ABG pCO2 51.0 (35-45) H 04/08/19 21:07 POC ABG pO2 308 (80-105) H 04/08/19 21:07 POC ABG HCO3 28.0 (22-26 mml/L) 04/08/19 21:07 POC ABG Total CO2 29 (23-27mmol/L) 04/08/19 21:07 POC ABG O2 Sat 100 04/08/19 21:07 PT/INR, D-dimer PT 15.7 Sec. (12.2-14.9) H 04/07/19 23:50 INR 1.28 (0.87-1.13) H 04/07/19 23:50 4399.55 ng/mlDDU (0-234) H 04/07/19 23:50 Abnormal lab findings: Abnormal Labs 04/07/19 04/07/19 04/07/19 23:47 23:50 23:50 WBC 14.8 H RBC 3.03 L Hgb 9.5 L Hct 27.7 L RDW 16.4 H Plt Count 494 H Lymph % (Auto) 12.7 L [place] % (Auto) 12.1 H [place] # 1.8 H Seg Neutrophils % 71.9 H Seg Neuts % (Manual) Lymphocytes % (Manual) Nucleated RBC % Seg Neutrophils # 10.7 H Seg Neutrophils # Man Lymphocytes # (Manual) PT 15.7 H INR 1.28 H D-Dimer 4399.55 H POC ABG pH POC ABG pCO2 POC ABG pO2 Creatinine 0.5 L Glucose 142 H POC Glucose Alkaline Phosphatase 468 H Lactate Dehydrogenase C-Reactive Protein Albumin 2.8 L 04/08/19 04/09/19 04/09/19 21:07 03:42 03:42 WBC 19.9 H RBC 3.52 L Hgb 10.8 L Hct 33.1 L RDW 16.8 H Plt Count Lymph % (Auto) [place] % (Auto) [place] # Seg Neutrophils % Seg Neuts % (Manual) 94.0 H Lymphocytes % (Manual) 3.0 L Nucleated RBC % 1.0 H Seg Neutrophils # Seg Neutrophils # Man 18.7 H Lymphocytes # (Manual) 0.6 L PT INR D-Dimer POC ABG pH 7.347 L POC ABG pCO2 51.0 H POC ABG pO2 308 H Creatinine 0.5 L Glucose 162 H POC Glucose Alkaline Phosphatase Lactate Dehydrogenase C-Reactive Protein Albumin 04/09/19 04/09/19 04/10/19 15:47 15:47 08:33 WBC RBC Hgb Hct RDW Plt Count Lymph % (Auto) [place] % (Auto) [place] # Seg Neutrophils % Seg Neuts % (Manual) Lymphocytes % (Manual) Nucleated RBC % Seg Neutrophils # Seg Neutrophils # Man Lymphocytes # (Manual) PT INR D-Dimer POC ABG pH POC ABG pCO2 POC ABG pO2 Creatinine Glucose POC Glucose 152 H Alkaline Phosphatase Lactate Dehydrogenase 371 H C-Reactive Protein 21.80 H Albumin 04/10/19 04/10/19 11:29 16:05 WBC RBC Hgb Hct RDW Plt Count Lymph % (Auto) [place] % (Auto) [place] # Seg Neutrophils % Seg Neuts % (Manual) Lymphocytes % (Manual) Nucleated RBC % Seg Neutrophils # Seg Neutrophils # Man Lymphocytes # (Manual) PT INR D-Dimer POC ABG pH POC ABG pCO2 POC ABG pO2 Creatinine Glucose POC Glucose 158 H 195 H Alkaline Phosphatase Lactate Dehydrogenase C-Reactive Protein Albumin Chest x-ray: report reviewed, image reviewed Additional Studies: CHEST 1 VIEW post thoracentesis done 04/11/19 INDICATION / CLINICAL INFORMATION: right pleural effusion, recent thora. COMPARISON: 04/09/2019 FINDINGS: SUPPORT DEVICES: None. HEART / MEDIASTINUM: Unchanged LUNGS / PLEURA: Complete opacification of the right hemithorax persists. There may be some improvement in right lower lobe compressive atelectasis. Severe interstitial changes throughout the left lung persists. No improvement in the interim.
--- NOTE | 2019-04-12 15:33 | Progress Note ---
Assessment and Plan Assessment and plan: Difficulty breathing History of present illness: 68-year-old male who is a former smoker with history of COPD, remote history of tuberculosis, newly diagnosed with non-small cell lung carcinoma (03/2019) presents to [facility] ED with complaints of difficulty with breathing, [place] and cough Review of chart shows that patient was recently diagnosed with non-small cell lung cancer last month and advised to follow-up with Dr. Haider outpatient. Patient states he was unable to do so due to finances. Past History Past Medical History: cancer (lung cancer diagnosed 03/2019), COPD, other (remote history of TB diagnosis 1986, treated for 6 months, patient had negative AFB 4 in March 2019) CTA chest; 1. There is complete atelectasis/collapse of the right lung with abrupt cut off of the right mainstem bronchus which may be due to mucous plug or neoplasm. Bronchoscopy is recommended. 2. Small to moderate right pleural effusion, increased in size. 3. Moderate pericardial effusion, new since the prior. 4. No acute PTE is seen. Acute hypoxic respiratory failure/Right lung collapse/ COPD flare ; cont high flow oxygen, steroids and nebs, mgt per pulm etoh abuse/withdrawal; ciwa protocol Agitation/anxiety; Ativan as needed Acute metabolic encephalopathy Was due to alcohol withdrawal and his hypoxia, improving A. fib with RVR, hypercoagulable states Rate control meds per cardiology, improving Right lung effusion Status post thoracentesis on 04/11, 500 mL of fluid was drained, cultures are negative Moderate pericardial effusion- seen on CTA chest 04/07/2019; chest pain Cardiology input appreciated, there is a moderate size pericardial effusion without tamponade not, follow-up echo Non-small cell lung carcinoma-newly diagnosed 03/2019 oncologist consult pending SIRS; no evidence of infection at this time Blood cultures negative, right lung fluid culture is negative Remote history of TB- 1986 (AFB 4 negative 03/2019; patient has been cleared by ID) History of tobacco abuse Preventative health counseling performed for 17 minutes Smoking cessation counseling performed for 10 minutes, nicotine patches ordered -client services coordinator consult place due to financial limitations with treatments DVT PPX on Lovenox Critical care time 35 minutes History Interval history: Patient continues to have shortness of breath and cough no fever Has been anxious and agitated No vomiting or seizures, no chest pain Hospitalist Physical - Physical exam Narrative exam: General.: severe resp distress, nontoxic HEENT: Moist mucous membranes, extraocular muscles intact, no lymphadenopathy Neck: supple Cardiac: S1-S2 heard Lungs: Severely decreased air entry, dull on right Abdomen: soft , nontender, nondistended, bowel sounds positive Extremities: no edema clubbing or cyanosis Skin: no rash or lesions Neurologic: no gross focal deficits Psych: calm, and cooperative - Constitutional Vitals: Temp Pulse Resp BP Pulse Ox 97.6 F 74 18 102/59 98 04/12/19 12:00 04/12/19 15:00 04/12/19 15:00 04/12/19 15:00 04/12/19 15:00 General appearance: Present: severe distress (supplemental oxygen via face mask) Results - Labs CBC & Chem 7: 04/13/19 14:03 04/13/19 04:25 Labs: Laboratory Last Values WBC 19.9 K/mm3 (4.5-11.0) H 04/09/19 03:42 RBC 3.52 M/mm3 (3.65-5.03) L 04/09/19 03:42 Hgb 10.8 gm/dl (11.8-15.2) L 04/09/19 03:42 Hct 33.1 % (35.5-45.6) L 04/09/19 03:42 MCV 94 fl (84-94) 04/09/19 03:42 MCH 31 pg (28-32) 04/09/19 03:42 MCHC 33 % (32-34) 04/09/19 03:42 RDW 16.8 % (13.2-15.2) H 04/09/19 03:42 Plt Count 263 K/mm3 (140-440) 04/09/19 03:42 Lymph % (Auto) 12.7 % (13.4-35.0) L 04/07/19 23:47 Sherman % (Auto) 12.1 % (0.0-7.3) H 04/07/19 23:47 Eos % (Auto) 2.7 % (0.0-4.3) 04/07/19 23:47 Baso % (Auto) 0.6 % (0.0-1.8) 04/07/19 23:47 Lymph # 1.9 K/mm3 (1.2-5.4) 04/07/19 23:47 Sherman # 1.8 K/mm3 (0.0-0.8) H 04/07/19 23:47 Eos # 0.4 K/mm3 (0.0-0.4) 04/07/19 23:47 Baso # 0.1 K/mm3 (0.0-0.1) 04/07/19 23:47 Add Manual Diff Complete 04/09/19 03:42 Total Counted 100 04/09/19 03:42 Seg Neutrophils % [employer] 04/09/19 03:42 Seg Neuts % (Manual) 94.0 % (40.0-70.0) H 04/09/19 03:42 0 % 04/09/19 03:42 3.0 % (13.4-35.0) L 04/09/19 03:42 Reactive Lymphs % (Man) 0 % 04/09/19 03:42 2.0 % (0.0-7.3) 04/09/19 03:42 0 % (0.0-4.3) 04/09/19 03:42 0 % (0.0-1.8) 04/09/19 03:42 0 % 04/09/19 03:42 1.0 % 04/09/19 03:42 0 % 04/09/19 03:42 0 % 04/09/19 03:42 Nucleated RBC % 1.0 % (0.0-0.9) H 04/09/19 03:42 Seg Neutrophils # 10.7 K/mm3 (1.8-7.7) H 04/07/19 23:47 Seg Neutrophils # Man 18.7 K/mm3 (1.8-7.7) H 04/09/19 03:42 Band Neutrophils # 0.0 K/mm3 04/09/19 03:42 0.6 K/mm3 (1.2-5.4) L 04/09/19 03:42 Abs React Lymphs (Man) 0.0 K/mm3 04/09/19 03:42 0.4 K/mm3 (0.0-0.8) 04/09/19 03:42 0.0 K/mm3 (0.0-0.4) 04/09/19 03:42 0.0 K/mm3 (0.0-0.1) 04/09/19 03:42 0.0 K/mm3 04/09/19 03:42 0.2 K/mm3 04/09/19 03:42 0.0 K/mm3 04/09/19 03:42 Blast Cells # 0.0 K/mm3 04/09/19 03:42 WBC Morphology Not Reportable 04/09/19 03:42 Hypersegmented Neuts Not Reportable 04/09/19 03:42 Hyposegmented Neuts Not Reportable 04/09/19 03:42 Hypogranular Neuts Not Reportable 04/09/19 03:42 Not Reportable 04/09/19 03:42 Not Reportable 04/09/19 03:42 Not Reportable 04/09/19 03:42 Not Reportable 04/09/19 03:42 Not Reportable 04/09/19 03:42 Not Reportable 04/09/19 03:42 Consistent w auto 04/09/19 03:42 Not Reportable 04/09/19 03:42 Plt Clumps, EDTA Not Reportable 04/09/19 03:42 Not Reportable 04/09/19 03:42 Not Reportable 04/09/19 03:42 Not Reportable 04/09/19 03:42 Plt Morphology Comment Not Reportable 04/09/19 03:42 RBC Morphology Normal 04/09/19 03:42 Dimorphic RBCs Not Reportable 04/09/19 03:42 Not Reportable 04/09/19 03:42 Not Reportable 04/09/19 03:42 Not Reportable 04/09/19 03:42 Not Reportable 04/09/19 03:42 Not Reportable 04/09/19 03:42 Not Reportable 04/09/19 03:42 Not Reportable 04/09/19 03:42 Not Reportable 04/09/19 03:42 Not Reportable 04/09/19 03:42 Not Reportable 04/09/19 03:42 Not Reportable 04/09/19 03:42 Not Reportable 04/09/19 03:42 Not Reportable 04/09/19 03:42 Not Reportable 04/09/19 03:42 Not Reportable 04/09/19 03:42 Not Reportable 04/09/19 03:42 Not Reportable 04/09/19 03:42 Not Reportable 04/09/19 03:42 Not Reportable 04/09/19 03:42 Acanthocytes (Spur) Not Reportable 04/09/19 03:42 Rouleaux Not Reportable 04/09/19 03:42 Not Reportable 04/09/19 03:42 Not Reportable 04/09/19 03:42 Not Reportable 04/09/19 03:42 Not Reportable 04/09/19 03:42 Hem Pathologist Commnt No 04/09/19 03:42 PT 15.7 Sec. (12.2-14.9) H 04/07/19 23:50 INR 1.28 (0.87-1.13) H 04/07/19 23:50 APTT 36.5 Sec. (24.2-36.6) 04/07/19 23:50 4399.55 ng/mlDDU (0-234) H 04/07/19 23:50 POC ABG pH 7.347 (7.35-7.45) L 04/08/19 21:07 POC ABG pCO2 51.0 (35-45) H 04/08/19 21:07 POC ABG pO2 308 (80-105) H 04/08/19 21:07 POC ABG HCO3 28.0 (22-26 mml/L) 04/08/19 21:07 POC ABG Total CO2 29 (23-27mmol/L) 04/08/19 21:07 POC ABG O2 Sat 100 04/08/19 21:07 POC ABG Base Excess 2 ((-2) - (+3)mmol/L) 04/08/19 21:07 100 % 04/08/19 21:07 Sodium 142 mmol/L (137-145) 04/09/19 03:42 Potassium 4.7 mmol/L (3.6-5.0) D 04/09/19 03:42 Chloride 103.1 mmol/L (98-107) 04/09/19 03:42 Carbon Dioxide 27 mmol/L (22-30) 04/09/19 03:42 17 mmol/L 04/09/19 03:42 BUN 18 mg/dL (9-20) 04/09/19 03:42 0.5 mg/dL (0.8-1.5) L 04/09/19 03:42 Estimated GFR > 60 ml/min 04/09/19 03:42 36 % 04/09/19 03:42 Glucose 162 mg/dL (75-100) H 04/09/19 03:42 POC Glucose 195 (70-105) H 04/10/19 16:05 Lactic Acid 1.70 mmol/L (0.7-2.0) 04/08/19 04:04 Calcium 9.8 mg/dL (8.4-10.2) 04/09/19 03:42 Phosphorus 4.00 mg/dL (2.5-4.5) 04/09/19 16:53 Magnesium 2.10 mg/dL (1.7-2.3) 04/09/19 16:53 0.50 mg/dL (0.1-1.2) 04/07/19 23:50 AST 31 units/L (5-40) 04/07/19 23:50 ALT 40 units/L (7-56) 04/07/19 23:50 468 units/L (35-129) H 04/07/19 23:50 371 units/L (91-180) H 04/09/19 15:47 < 0.010 ng/mL (0.00-0.029) 04/08/19 01:19 21.80 mg/dL (0.00-1.30) H 04/09/19 15:47 NT-Pro-B Natriuret Pep 361.4 pg/mL (0-900) 04/07/19 23:47 6.7 g/dL (6.3-8.2) 04/07/19 23:50 2.8 g/dL (3.9-5) L 04/07/19 23:50 0.7 % 04/07/19 23:50 Active Medications - Current Medications Current Medications: Generic Name Dose Route Start Last Admin Trade Name Freq PRN Reason Stop Dose Admin Acetaminophen 650 mg 04/08/19 03:56 Tylenol PO Q4H PRN Pain MILD(1-3)/Fever >100.5/BOO Albuterol 2.5 mg 04/08/19 03:56 04/10/19 17:42 Proventil IH 2.5 mg Q3HRT PRN Administration Shortness Of Breath Albuterol/Ipratropium 1 ampul 04/08/19 08:00 04/12/19 09:14 Duoneb *Not For Prn Use* IH Not Given Q6HRT FRANCISCO JAVIER Amiodarone HCl 200 mg 04/12/19 12:00 04/12/19 11:53 Cordarone PO 200 mg BID FRANCISCO JAVIER Administration Benzonatate 200 mg 04/09/19 11:00 04/12/19 11:45 Tessalon Perles PO 200 mg Q8H FRANCISCO JAVIER Administration Budesonide 0.5 mg 04/08/19 08:00 04/12/19 08:49 Pulmicort IH 0.5 mg Q12HRT FRANCISCO JAVIER Administration Diltiazem HCl 60 mg 04/09/19 11:00 04/12/19 11:44 Cardizem PO 60 mg Q6H FRANCISCO JAVIER Administration Enoxaparin Sodium 40 mg 04/08/19 10:00 04/12/19 09:30 Lovenox SUB-Q 40 mg QDAY@1000 FRANCISCO JAVIER Administration Famotidine 20 mg 04/10/19 10:00 04/12/19 09:31 Pepcid PO 20 mg QDAY FRANCISCO JAVIER Administration Folic Acid 1 mg 04/11/19 10:00 04/12/19 09:30 Folvite PO 1 mg QDAY FRANCISCO JAVIER Administration Furosemide 40 mg 04/10/19 10:00 04/12/19 09:30 Lasix IV 40 mg QDAY FRANCISCO JAVIER Administration Haloperidol Lactate 5 mg 04/09/19 16:42 04/10/19 02:27 Haldol IV 5 mg Q6H PRN Administration Unrespon. to mult. doses BZD's Levofloxacin/Dextrose 500 mg in 100 mls @ 100 mls/hr 04/09/19 16:00 04/12/19 09:30 Levaquin 500mg/100ml IV 04/14/19 15:59 100 mls/hr Q24HR FRANCISCO JAVIER Administration Protocol Amiodarone HCl 900 mg/ 500 mls @ 33.333 mls/hr 04/11/19 12:00 04/12/19 12:41 Dextrose IV 04/13/19 01:00 1 mg/min DIRECT FRANCISCO JAVIER 33.333 mls/hr Administration Protocol 1 MG/MIN Lorazepam 1 mg 04/09/19 10:20 04/10/19 17:02 Ativan IV 1 mg Q4H PRN Administration Agitation Methylprednisolone Sodium Succinate 40 mg 04/09/19 16:00 04/12/19 15:16 Solu-Medrol IV 40 mg Q12H FRANCISCO JAVIER Administration Morphine Sulfate 2 mg 04/08/19 11:14 04/10/19 20:33 Morphine IV 2 mg Q4H PRN Administration Pain , Severe (7-10) Nicotine 14 mg 04/10/19 13:00 04/12/19 09:27 Habitrol TD 14 mg QDAY FRANCISCO JAVIER Administration Ondansetron HCl 4 mg 04/08/19 03:56 Zofran IV Q8H PRN Nausea And Vomiting Oxycodone/Acetaminophen 1 tab 04/08/19 03:56 04/12/19 09:29 Percocet 5/325 PO 1 tab Q6H PRN Administration Pain, Moderate (4-6) Sodium Chloride 10 ml 04/08/19 10:00 04/12/19 09:29 Sodium Chloride Flush Syringe 10 Ml IV 10 ml BID FRANCISCO JAVIER Administration Sodium Chloride 10 ml 04/08/19 03:56 04/08/19 22:15 Sodium Chloride Flush Syringe 10 Ml IV 10 ml PRN PRN Administration LINE FLUSH Thiamine HCl 100 mg 04/11/19 10:00 04/12/19 09:31 Vitamin B-1 PO 100 mg QDAY FRANCISCO JAVIER Administration Nutrition/Malnutrition Assess - Dietary Evaluation Nutrition/Malnutrition Findings: Nutrition Notes Start: 04/09/19 13:11 Freq: Status: Active Protocol: Document 04/12/19 13:43 BILL (Rec: 04/12/19 13:55 [email or web address]) Nutrition Notes Initial or Follow up Reassessment Current Diagnosis COPD Other Pertinent Diagnosis New dx lung CA, DELMY Current Diet Cardiac + Ensure Enlive daily Labs/Tests No current available Pertinent Medications Amiodarone gtt, Folic acid, Lasix, Thiamine Height 5 ft 4 in Weight 51.1 kg [place] Body Weight (kg) 59.09 BMI 19.3 Weight Status Underweight Subjective/Other Information No PO intakes documented, however, pt reports poor appetite, but has been drinking the ONS. Says he eats <50% of meals. Currently on high-flow O2 support. Pt with hx of EtOH dependence. Burn Absent Trauma Absent Skin Integrity/Comment Artemio: 18 Energy Intake (severe) < or equal to 50% Estimated Energy Requirement > or equal to 5 days Body Fat Depletion Moderate depletion (severe) Muscle Mass Moderate Depletion (severe) Protein-Calorie Malnutrition Severe #2 Nutrition Diagnosis Malnutrition Etiology hx of EtOH dep and likelihood of inadequate PO intake As Evidenced by Signs and Symptoms BMI <23, subcutaneous fat loss and muscle loss, poor PO intake #1 Nutrition Diagnosis Inadequate oral intake Diagnosis Progress(for reassessment Continues documentation) Is patient on ventilator? No Is Patient Ambulatory and/or Out of Bed No REE-([facility]-confined to bed) 1448.124 Kcal/Kg value to use for calculation 35 Approximate Energy Requirements Using 1789 kcal/Kg Calculation Used for Recommendations Kcal/kg Additional Notes Pro needs 1.2-1.5g/k-77g/ day Fluid needs 1ml/kcal Nutrition Intervention Change Diet Order: Continue current diet Add Supplement/Snack (indicate name/kcal Ensure Enlive TID /protein ) Provides kCal: 1,050 Provides Protein (gm) 60 Goal #1 PO intake of meals plus ONS to meet at least 75% energy and pro needs Goal #2 Wt maintenance and/or gain Anticipated Discharge Needs: Continue Ensure Enlive (or equivalent) 2-3 bottles daily for wt maintenance Follow-Up By: 04/17/19 Additional Comments F/U: intakes
[2019-04-13] MEDS: DUONEB *Not for PRN Use IH SCH ×4 (01:59→19:46)
[2019-04-13] MEDS: TESSALON PERLES PO SCH ×4 (04:21→20:10)
[2019-04-13] MEDS: SOLU-Medrol IV SCH ×2 (04:21→16:45)
[2019-04-13] MEDS: PERCOCET 5/325 PO PRN ×3 (04:27→19:09)
[2019-04-13] MEDS: CARDIZEM PO SCH ×4 (04:27→22:27)
[2019-04-13 04:53] LABS: Hematocrit 33.9 % (35.5-45.6); Hemoglobin 11.4 gm/dl (11.8-15.2); Mean Corpuscular HGB Conc 34 % (32-34); Mean Corpuscular Volume 91 fl (84-94); Red Blood Count 3.72 M/mm3 (3.65-5.03); Red Cell Distribution Width 16.8 % (13.2-15.2)
[2019-04-13 05:09] LABS: BUN/Creatinine Ratio 54; Blood Urea Nitrogen 27 mg/dL (9-20); Calcium 8.9 mg/dL (8.4-10.2); Hemolysis Index 4
[2019-04-13] MEDS: PULMICORT IH SCH ×2 (08:58→19:46)
[2019-04-13] MEDS ORDERED: PROVENTIL IH PRN (09:15)
[2019-04-13] MEDS: LEVAQUIN 500MG/100ML 500 MG/100 ML BAG IV SCH (09:30)
[2019-04-13] MEDS: HABITROL TD SCH (09:30)
[2019-04-13] MEDS: PEPCID PO SCH (09:31)
[2019-04-13] MEDS: LOVENOX SUB-Q SCH (09:31)
[2019-04-13] MEDS: FOLVITE PO SCH (09:31)
[2019-04-13] MEDS: LASIX IV SCH (09:31)
--- NOTE | 2019-04-13 09:31 | Progress Note ---
Assessment and Plan Assessment and plan: Difficulty breathing History of present illness: 68-year-old male who is a former smoker with history of COPD, remote history of tuberculosis, newly diagnosed with non-small cell lung carcinoma (03/2019) presents to [facility] ED with complaints of difficulty with breathing, [place] and cough Review of chart shows that patient was recently diagnosed with non-small cell lung cancer last month and advised to follow-up with Dr. Haider outpatient. Patient states he was unable to do so due to finances. Past History Past Medical History: cancer (lung cancer diagnosed 03/2019), COPD, other (remote history of TB diagnosis 1986, treated for 6 months, patient had negative AFB 4 in March 2019) CTA chest; 1. There is complete atelectasis/collapse of the right lung with abrupt cut off of the right mainstem bronchus which may be due to mucous plug or neoplasm. Bronchoscopy is recommended. 2. Small to moderate right pleural effusion, increased in size. 3. Moderate pericardial effusion, new since the prior. 4. No acute PTE is seen. Acute hypoxic respiratory failure/Right lung collapse/ COPD flare ; cont high flow oxygen, steroids and nebs, mgt per pulm etoh abuse/withdrawal; ciwa protocol Agitation/anxiety; Ativan as needed Acute metabolic encephalopathy Was due to alcohol withdrawal and his hypoxia, improving A. fib with RVR, hypercoagulable states Rate control meds per cardiology, improving Right lung effusion Status post thoracentesis on 04/11, 500 mL of fluid was drained, cultures are negative Moderate pericardial effusion- seen on CTA chest 04/07/2019; chest pain Cardiology input appreciated, there is a moderate size pericardial effusion without tamponade not, follow-up echo Non-small cell lung carcinoma-newly diagnosed 03/2019 oncologist consult pending SIRS; no evidence of infection at this time Blood cultures negative, right lung fluid culture is negative Remote history of TB- 1986 (AFB 4 negative 03/2019; patient has been cleared by ID) History of tobacco abuse Preventative health counseling performed for 17 minutes Smoking cessation counseling performed for 10 minutes, nicotine patches ordered -bibliographic services specialist consult place due to financial limitations with treatments DVT PPX on Lovenox Critical care time 35 minutes History Interval history: Patient continues to have shortness of breath and cough no fever Has been anxious and agitated No vomiting or seizures, no chest pain Hospitalist Physical - Physical exam Narrative exam: General.: severe resp distress, nontoxic HEENT: Moist mucous membranes, extraocular muscles intact, no lymphadenopathy Neck: supple Cardiac: S1-S2 heard Lungs: Severely decreased air entry, dull on right Abdomen: soft , nontender, nondistended, bowel sounds positive Extremities: no edema clubbing or cyanosis Skin: no rash or lesions Neurologic: no gross focal deficits Psych: calm, and cooperative - Constitutional Vitals: Temp Pulse Resp BP Pulse Ox 97.6 F 71 18 118/75 96 04/13/19 08:00 04/13/19 09:12 04/13/19 09:12 04/13/19 08:01 04/13/19 09:13 General appearance: Present: severe distress (supplemental oxygen via face mask) Results - Labs CBC & Chem 7: 04/13/19 14:03 04/13/19 04:25 Labs: Laboratory Last Values WBC 21.4 K/mm3 (4.5-11.0) H 04/13/19 04:25 RBC 3.72 M/mm3 (3.65-5.03) 04/13/19 04:25 Hgb 11.4 gm/dl (11.8-15.2) L 04/13/19 04:25 Hct 33.9 % (35.5-45.6) L 04/13/19 04:25 MCV 91 fl (84-94) 04/13/19 04:25 MCH 31 pg (28-32) 04/13/19 04:25 MCHC 34 % (32-34) 04/13/19 04:25 RDW 16.8 % (13.2-15.2) H 04/13/19 04:25 Plt Count 263 K/mm3 (140-440) 04/09/19 03:42 Lymph % (Auto) 12.7 % (13.4-35.0) L 04/07/19 23:47 [place] % (Auto) 12.1 % (0.0-7.3) H 04/07/19 23:47 Eos % (Auto) 2.7 % (0.0-4.3) 04/07/19 23:47 Baso % (Auto) 0.6 % (0.0-1.8) 04/07/19 23:47 Lymph # 1.9 K/mm3 (1.2-5.4) 04/07/19 23:47 [place] # 1.8 K/mm3 (0.0-0.8) H 04/07/19 23:47 Eos # 0.4 K/mm3 (0.0-0.4) 04/07/19 23:47 Baso # 0.1 K/mm3 (0.0-0.1) 04/07/19 23:47 Add Manual Diff Complete 04/09/19 03:42 Total Counted 100 04/09/19 03:42 Seg Neutrophils % Crystal Lapper 04/13/19 04:25 Seg Neuts % (Manual) 94.0 % (40.0-70.0) H 04/09/19 03:42 0 % 04/09/19 03:42 3.0 % (13.4-35.0) L 04/09/19 03:42 Reactive Lymphs % (Man) 0 % 04/09/19 03:42 2.0 % (0.0-7.3) 04/09/19 03:42 0 % (0.0-4.3) 04/09/19 03:42 0 % (0.0-1.8) 04/09/19 03:42 0 % 04/09/19 03:42 1.0 % 04/09/19 03:42 0 % 04/09/19 03:42 0 % 04/09/19 03:42 Nucleated RBC % 1.0 % (0.0-0.9) H 04/09/19 03:42 Seg Neutrophils # 10.7 K/mm3 (1.8-7.7) H 04/07/19 23:47 Seg Neutrophils # Man 18.7 K/mm3 (1.8-7.7) H 04/09/19 03:42 Band Neutrophils # 0.0 K/mm3 04/09/19 03:42 0.6 K/mm3 (1.2-5.4) L 04/09/19 03:42 Abs React Lymphs (Man) 0.0 K/mm3 04/09/19 03:42 0.4 K/mm3 (0.0-0.8) 04/09/19 03:42 0.0 K/mm3 (0.0-0.4) 04/09/19 03:42 0.0 K/mm3 (0.0-0.1) 04/09/19 03:42 0.0 K/mm3 04/09/19 03:42 0.2 K/mm3 04/09/19 03:42 0.0 K/mm3 04/09/19 03:42 Blast Cells # 0.0 K/mm3 04/09/19 03:42 WBC Morphology Not Reportable 04/09/19 03:42 Hypersegmented Neuts Not Reportable 04/09/19 03:42 Hyposegmented Neuts Not Reportable 04/09/19 03:42 Hypogranular Neuts Not Reportable 04/09/19 03:42 Not Reportable 04/09/19 03:42 Not Reportable 04/09/19 03:42 Not Reportable 04/09/19 03:42 Not Reportable 04/09/19 03:42 Not Reportable 04/09/19 03:42 Not Reportable 04/09/19 03:42 Consistent w auto 04/09/19 03:42 Not Reportable 04/09/19 03:42 Plt Clumps, EDTA Not Reportable 04/09/19 03:42 Not Reportable 04/09/19 03:42 Not Reportable 04/09/19 03:42 Not Reportable 04/09/19 03:42 Plt Morphology Comment Not Reportable 04/09/19 03:42 RBC Morphology Normal 04/09/19 03:42 Dimorphic RBCs Not Reportable 04/09/19 03:42 Not Reportable 04/09/19 03:42 Not Reportable 04/09/19 03:42 Not Reportable 04/09/19 03:42 Not Reportable 04/09/19 03:42 Not Reportable 04/09/19 03:42 Not Reportable 04/09/19 03:42 Not Reportable 04/09/19 03:42 Not Reportable 04/09/19 03:42 Not Reportable 04/09/19 03:42 Not Reportable 04/09/19 03:42 Not Reportable 04/09/19 03:42 Not Reportable 04/09/19 03:42 Not Reportable 04/09/19 03:42 Not Reportable 04/09/19 03:42 Not Reportable 04/09/19 03:42 Not Reportable 04/09/19 03:42 Not Reportable 04/09/19 03:42 Not Reportable 04/09/19 03:42 Not Reportable 04/09/19 03:42 Acanthocytes (Spur) Not Reportable 04/09/19 03:42 Rouleaux Not Reportable 04/09/19 03:42 Not Reportable 04/09/19 03:42 Not Reportable 04/09/19 03:42 Not Reportable 04/09/19 03:42 Not Reportable 04/09/19 03:42 Hem Pathologist Commnt No 04/09/19 03:42 PT 15.7 Sec. (12.2-14.9) H 04/07/19 23:50 INR 1.28 (0.87-1.13) H 04/07/19 23:50 APTT 36.5 Sec. (24.2-36.6) 04/07/19 23:50 4399.55 ng/mlDDU (0-234) H 04/07/19 23:50 POC ABG pH 7.347 (7.35-7.45) L 04/08/19 21:07 POC ABG pCO2 51.0 (35-45) H 04/08/19 21:07 POC ABG pO2 308 (80-105) H 04/08/19 21:07 POC ABG HCO3 28.0 (22-26 mml/L) 04/08/19 21:07 POC ABG Total CO2 29 (23-27mmol/L) 04/08/19 21:07 POC ABG O2 Sat 100 04/08/19 21:07 POC ABG Base Excess 2 ((-2) - (+3)mmol/L) 04/08/19 21:07 100 % 04/08/19 21:07 Sodium 142 mmol/L (137-145) 04/13/19 04:25 Potassium 4.1 mmol/L (3.6-5.0) 04/13/19 04:25 Chloride 96.0 mmol/L (98-107) L 04/13/19 04:25 Carbon Dioxide 35 mmol/L (22-30) H D 04/13/19 04:25 15 mmol/L 04/13/19 04:25 BUN 27 mg/dL (9-20) H 04/13/19 04:25 0.5 mg/dL (0.8-1.5) L 04/13/19 04:25 Estimated GFR > 60 ml/min 04/13/19 04:25 54 % 04/13/19 04:25 Glucose 211 mg/dL (75-100) H 04/13/19 04:25 POC Glucose 195 (70-105) H 04/10/19 16:05 Lactic Acid 1.70 mmol/L (0.7-2.0) 04/08/19 04:04 Calcium 8.9 mg/dL (8.4-10.2) 04/13/19 04:25 Phosphorus 4.00 mg/dL (2.5-4.5) 04/09/19 16:53 Magnesium 2.10 mg/dL (1.7-2.3) 04/09/19 16:53 0.50 mg/dL (0.1-1.2) 04/07/19 23:50 AST 31 units/L (5-40) 04/07/19 23:50 ALT 40 units/L (7-56) 04/07/19 23:50 468 units/L (35-129) H 04/07/19 23:50 371 units/L (91-180) H 04/09/19 15:47 < 0.010 ng/mL (0.00-0.029) 04/08/19 01:19 21.80 mg/dL (0.00-1.30) H 04/09/19 15:47 NT-Pro-B Natriuret Pep 361.4 pg/mL (0-900) 04/07/19 23:47 6.7 g/dL (6.3-8.2) 04/07/19 23:50 2.8 g/dL (3.9-5) L 04/07/19 23:50 0.7 % 04/07/19 23:50 Active Medications - Current Medications Current Medications: Generic Name Dose Route Start Last Admin Trade Name Freq PRN Reason Stop Dose Admin Acetaminophen 650 mg 04/08/19 03:56 Tylenol PO Q4H PRN Pain MILD(1-3)/Fever >100.5/BOO Albuterol 2.5 mg 04/13/19 09:15 Proventil IH Q4HRT PRN Shortness Of Breath Albuterol/Ipratropium 1 ampul 04/13/19 14:00 Duoneb *Not For Prn Use* IH TIDRT FRANCISCO JAVIER Amiodarone HCl 200 mg 04/12/19 12:00 04/12/19 22:19 Cordarone PO 200 mg BID FRANCISCO JAVIER Administration Arformoterol Tartrate 15 mcg 04/13/19 20:00 Brovana Nebu IH Q12HRT FRANCISCO JAVIER Benzonatate 200 mg 04/09/19 11:00 04/13/19 04:21 Tessalon Perles PO 200 mg Q8H FRANCISCO JAVIER Administration Budesonide 0.5 mg 04/13/19 20:00 Pulmicort Q12HRT FRANCISCO JAVIER Diltiazem HCl 60 mg 04/09/19 11:00 04/13/19 04:27 Cardizem PO 60 mg Q6H FRANCISCO JAVIER Administration Enoxaparin Sodium 40 mg 04/08/19 10:00 04/12/19 09:30 Lovenox SUB-Q 40 mg QDAY@1000 FRANCISCO JAVIER Administration Famotidine 20 mg 04/10/19 10:00 04/12/19 09:31 Pepcid PO 20 mg QDAY FRANCISCO JAVIER Administration Folic Acid 1 mg 04/11/19 10:00 04/12/19 09:30 Folvite PO 1 mg QDAY FRANCISCO JAVIER Administration Furosemide 40 mg 04/10/19 10:00 04/12/19 09:30 Lasix IV 40 mg QDAY FRANCISCO JAVIER Administration Haloperidol Lactate 5 mg 04/09/19 16:42 04/10/19 02:27 Haldol IV 5 mg Q6H PRN Administration Unrespon. to mult. doses BZD's Levofloxacin/Dextrose 500 mg in 100 mls @ 100 mls/hr 04/09/19 16:00 04/12/19 09:30 Levaquin 500mg/100ml IV 04/14/19 15:59 100 mls/hr Q24HR FRANCISCO JAVIER Administration Protocol Lorazepam 1 mg 04/09/19 10:20 04/10/19 17:02 Ativan IV 1 mg Q4H PRN Administration Agitation Methylprednisolone Sodium Succinate 40 mg 04/09/19 16:00 04/13/19 04:21 Solu-Medrol IV 40 mg Q12H FRANCISCO JAVIER Administration Morphine Sulfate 2 mg 04/08/19 11:14 04/10/19 20:33 Morphine IV 2 mg Q4H PRN Administration Pain , Severe (7-10) Nicotine 14 mg 04/10/19 13:00 04/12/19 09:27 Habitrol TD 14 mg QDAY FRANCISCO JAVIER Administration Ondansetron HCl 4 mg 04/08/19 03:56 Zofran IV Q8H PRN Nausea And Vomiting Oxycodone/Acetaminophen 1 tab 04/08/19 03:56 04/13/19 04:27 Percocet 5/325 PO 1 tab Q6H PRN Administration Pain, Moderate (4-6) Sodium Chloride 10 ml 04/08/19 10:00 04/12/19 22:31 Sodium Chloride Flush Syringe 10 Ml IV 10 ml BID FRANCISCO JAVIER Administration Sodium Chloride 10 ml 04/08/19 03:56 04/08/19 22:15 Sodium Chloride Flush Syringe 10 Ml IV 10 ml PRN PRN Administration LINE FLUSH Thiamine HCl 100 mg 04/11/19 10:00 04/12/19 09:31 Vitamin B-1 PO 100 mg QDAY FRANCISCO JAVIER Administration Nutrition/Malnutrition Assess - Dietary Evaluation Nutrition/Malnutrition Findings: Nutrition Notes Start: 04/09/19 13:11 Freq: Status: Active Protocol: Document 04/12/19 13:43 [facility] (Rec: 04/12/19 13:55 [facility] [id number] S1) Nutrition Notes Initial or Follow up Reassessment Current Diagnosis COPD Other Pertinent Diagnosis New dx lung CA, DELMY Current Diet Cardiac + Ensure Enlive daily Labs/Tests No current available Pertinent Medications Amiodarone gtt, Folic acid, Lasix, Thiamine Height 5 ft 4 in Weight 51.1 kg [place] Body Weight (kg) 59.09 BMI 19.3 Weight Status Underweight Subjective/Other Information No PO intakes documented, however, pt reports poor appetite, but has been drinking the ONS. Says he eats <50% of meals. Currently on high-flow O2 support. Pt with hx of EtOH dependence. Burn Absent Trauma Absent Skin Integrity/Comment Artemio: 18 Energy Intake (severe) < or equal to 50% Estimated Energy Requirement > or equal to 5 days Body Fat Depletion Moderate depletion (severe) Muscle Mass Moderate Depletion (severe) Protein-Calorie Malnutrition Severe #2 Nutrition Diagnosis Malnutrition Etiology hx of EtOH dep and likelihood of inadequate PO intake As Evidenced by Signs and Symptoms BMI <23, subcutaneous fat loss and muscle loss, poor PO intake #1 Nutrition Diagnosis Inadequate oral intake Diagnosis Progress(for reassessment Continues documentation) Is patient on ventilator? No Is Patient Ambulatory and/or Out of Bed No REE-([place]-confined to bed) 1448.124 Kcal/Kg value to use for calculation 35 Approximate Energy Requirements Using 1789 kcal/Kg Calculation Used for Recommendations Kcal/kg Additional Notes Pro needs 1.2-1.5g/k-77g/ day Fluid needs 1ml/kcal Nutrition Intervention Change Diet Order: Continue current diet Add Supplement/Snack (indicate name/kcal Ensure Enlive TID /protein ) Provides kCal: 1,050 Provides Protein (gm) 60 Goal #1 PO intake of meals plus ONS to meet at least 75% energy and pro needs Goal #2 Wt maintenance and/or gain Anticipated Discharge Needs: Continue Ensure Enlive (or equivalent) 2-3 bottles daily for wt maintenance Follow-Up By: 04/17/19 Additional Comments F/U: intakes
[2019-04-13] MEDS: CORDARONE PO SCH ×2 (09:32→22:29)
[2019-04-13] MEDS: VITAMIN B-1 PO SCH (09:32)
[2019-04-13] MEDS: SODIUM CHLORIDE FLUSH SYRINGE 10 ML IV SCH ×2 (09:32→22:28)
[2019-04-13 11:03] LABS: Basophils % (Manual) 0 % (0.0-1.8); Eosinophils % (Manual) 0 % (0.0-4.3); Total Cells Counted 100
[2019-04-13 11:04] LABS: Anisocytosis Few; Poikilocytosis Few; Target Cells Few
[2019-04-13 11:05] LABS: Large Platelets Rare; Platelet Estimate Consistent w Auto
--- NOTE | 2019-04-13 15:27 | Progress Note ---
Assessment and Plan Cont present cardiac management. The patient has been seen in conjunction with Dr. Sanabria who agrees with assessment and plan of care. - Patient Problems (1) Atrial fibrillation with RVR Current Visit: No Status: Acute (2) Atrial flutter Current Visit: No Status: Acute (3) Acute respiratory distress Current Visit: Yes Status: Acute (4) Atelectasis of right lung Current Visit: Yes Status: Acute (5) Pericardial effusion without cardiac tamponade Current Visit: Yes Status: Acute (6) Pleural effusion Current Visit: Yes Status: Acute (7) Lung cancer Current Visit: Yes Status: Chronic Qualifiers: Laterality: right Lung location: overlapping sites Qualified Code(s): C34.81 - Malignant neoplasm of overlapping sites of right bronchus and lung (8) History of TB (tuberculosis) Current Visit: No Status: Chronic (9) Paroxysmal SVT (supraventricular tachycardia) Current Visit: Yes Status: Acute Subjective Date of service: 04/13/19 Principal diagnosis: lung ca Interval history: pt resting in bed, pt denies any current cardiac complaints. in SR. Objective Last Vital Signs Temp 97.8 F 04/13/19 12:00 Pulse 71 04/13/19 15:00 Resp 14 04/13/19 15:00 BP 118/68 04/13/19 15:00 Pulse Ox 95 04/13/19 15:00 - Physical Examination General: Cachectic HEENT: Positive: PERRL Neck: Positive: neck supple Cardiac: Positive: Reg Rate and Rhythm, S1/S2 Lungs: Positive: Decreased Breath Sounds Neuro: Positive: Grossly Intact Abdomen: Positive: Unremarkable Skin: Positive: Clear Musculoskeletal: Normal Range of Motion Extremities: Present: normal - Labs and Meds CBC 04/13/19 Range/Units 04:25 WBC 21.4 H (4.5-11.0) K/mm3 RBC 3.72 (3.65-5.03) M/mm3 Hgb 11.4 L (11.8-15.2) gm/dl Hct 33.9 L (35.5-45.6) % Plt Count Not Reportable Comprehensive Metabolic Panel 04/13/19 Range/Units 04:25 Sodium 142 (137-145) mmol/L Potassium 4.1 (3.6-5.0) mmol/L Chloride 96.0 L (98-107) mmol/L Carbon Dioxide 35 H D (22-30) mmol/L BUN 27 H (9-20) mg/dL Creatinine 0.5 L (0.8-1.5) mg/dL Glucose 211 H (75-100) mg/dL Calcium 8.9 (8.4-10.2) mg/dL - Imaging and Cardiology Echo: report reviewed (03/2019: LVEF of 55 to 60%, no pericardial effusion) - EKG Sinus rhythms and dysrhythmias: sinus tachycardia
--- NOTE | 2019-04-13 15:33 | Progress Note ---
Assessment and Plan Acute on chronic hypoxemic respiratory failure. Complete right lung atelectasis. Non-small cell lung cancer, previously diagnosed. Leukocytosis, possibly also related to steroids. Anemia that is normocytic. Elevated D-dimers, likely due to malignancy. Adult failure to thrive. Malignant pleural effusion (Pleural fluid cytology is positive for adenocarcinoma) - continue supplemental oxygen and wean to keep O2 sat's > 90% - aspiration precautions - continue bronchodilators with pulmonary hygiene per RT - GI & VTE prophylaxis - AdenoCA treatment per heme-Onc team - continue other care per attending / other consultants ... re-evaluate in am & prn Subjective Date of service: 04/13/19 Principal diagnosis: Ac on ch hypoxemic resp failure; R. lung atelectasis; NSCLC; Leukocytosis Interval history: Patient is seen today for: Acute on chronic hypoxemic respiratory failure; Complete right lung atelectasis; Non-small cell lung cancer; Leukocytosis; Anemia; Elevated D-dimers; Adult failure to thrive. Seen and examined at bedside; 24hour events reviewed; nursing and respiratory care staff consulted; no adverse overnight events reported to me; doing better overall; remains on HFNC but down to 40% FiO2; denies acute chest pains or palpitations; s/p thoracentesis without lung re-expansion and await cytology report; No N/V/F/C Objective Vital Signs - 12hr 04/13/19 04/13/19 04/13/19 04:00 04:27 05:00 Temperature 97.7 F Pulse Rate 73 72 73 Pulse Rate [ Anterior Left Throughout] Pulse Rate [ 76 From Monitor] Respiratory 25 H 20 Rate Respiratory Rate [Anterior Left Throughout ] Blood Pressure 126/81 126/81 131/82 O2 Sat by Pulse 92 97 Oximetry 04/13/19 04/13/19 04/13/19 06:00 07:00 08:00 Temperature 97.6 F Pulse Rate 69 68 69 Pulse Rate [ Anterior Left Throughout] Pulse Rate [ 69 From Monitor] Respiratory 14 17 26 H Rate Respiratory Rate [Anterior Left Throughout ] Blood Pressure 116/69 121/61 O2 Sat by Pulse 96 96 90 Oximetry 04/13/19 04/13/19 04/13/19 08:01 08:57 08:58 Temperature Pulse Rate 67 Pulse Rate [ 71 Anterior Left Throughout] Pulse Rate [ From Monitor] Respiratory 13 Rate Respiratory 18 Rate [Anterior Left Throughout ] Blood Pressure 118/75 O2 Sat by Pulse 94 92 Oximetry 04/13/19 04/13/19 04/13/19 09:00 09:12 09:13 Temperature Pulse Rate 71 Pulse Rate [ 71 Anterior Left Throughout] Pulse Rate [ From Monitor] Respiratory 19 Rate Respiratory 18 Rate [Anterior Left Throughout ] Blood Pressure 125/72 O2 Sat by Pulse 96 96 Oximetry 04/13/19 04/13/19 04/13/19 10:01 11:00 11:17 Temperature Pulse Rate 77 74 72 Pulse Rate [ Anterior Left Throughout] Pulse Rate [ From Monitor] Respiratory 27 H 19 Rate Respiratory Rate [Anterior Left Throughout ] Blood Pressure 113/62 125/76 125/76 O2 Sat by Pulse 92 95 Oximetry 04/13/19 04/13/19 04/13/19 12:00 13:00 13:52 Temperature 97.8 F Pulse Rate 71 77 Pulse Rate [ 71 Anterior Left Throughout] Pulse Rate [ 73 From Monitor] Respiratory 13 17 Rate Respiratory 20 Rate [Anterior Left Throughout ] Blood Pressure 119/70 121/78 O2 Sat by Pulse 96 97 Oximetry 04/13/19 04/13/19 04/13/19 14:00 14:03 14:04 Temperature Pulse Rate 71 Pulse Rate [ 75 Anterior Left Throughout] Pulse Rate [ From Monitor] Respiratory 19 Rate Respiratory 16 Rate [Anterior Left Throughout ] Blood Pressure 124/75 O2 Sat by Pulse 98 95 Oximetry 04/13/19 15:00 Temperature Pulse Rate 71 Pulse Rate [ Anterior Left Throughout] Pulse Rate [ From Monitor] Respiratory 14 Rate Respiratory Rate [Anterior Left Throughout ] Blood Pressure 118/68 O2 Sat by Pulse 95 Oximetry Constitutional: no acute distress, alert, other (elderly looking thin male, normocephalic and atraumatic) Eyes: non-icteric ENT: oropharynx moist, other (mallampati 2) Neck: supple, no lymphadenopathy Effort: mildly labored Ascultation: Right: diminished breath sounds, Left: clear, Bilateral: other (Complete opacification of right lung.) Percussion: Right: dull Cardiovascular: regular rate and rhythm Gastrointestinal: normoactive bowel sounds, soft, non-tender, non-distended Integumentary: normal Extremities: no cyanosis, no edema, pulses normal, no ischemia or petechiae Neurologic: non-focal exam, pupils equal and round, CN II-XII normal, motor s trength normal and Psychiatric: mood appropriate, affect normal CBC and BMP: 04/13/19 14:03 04/13/19 04:25 ABG, PT/INR, D-dimer: ABG POC ABG pH 7.347 (7.35-7.45) L 04/08/19 21:07 POC ABG pCO2 51.0 (35-45) H 04/08/19 21:07 POC ABG pO2 308 (80-105) H 04/08/19 21:07 POC ABG HCO3 28.0 (22-26 mml/L) 04/08/19 21:07 POC ABG Total CO2 29 (23-27mmol/L) 04/08/19 21:07 POC ABG O2 Sat 100 04/08/19 21:07 PT/INR, D-dimer PT 15.7 Sec. (12.2-14.9) H 04/07/19 23:50 INR 1.28 (0.87-1.13) H 04/07/19 23:50 4399.55 ng/mlDDU (0-234) H 04/07/19 23:50 Abnormal lab findings: Abnormal Labs 04/07/19 04/07/19 04/07/19 23:47 23:50 23:50 WBC 14.8 H RBC 3.03 L Hgb 9.5 L Hct 27.7 L RDW 16.4 H Plt Count 494 H Lymph % (Auto) 12.7 L [place] % (Auto) 12.1 H [place] # 1.8 H Seg Neutrophils % 71.9 H Seg Neuts % (Manual) Lymphocytes % (Manual) Nucleated RBC % Seg Neutrophils # 10.7 H Seg Neutrophils # Man Lymphocytes # (Manual) Monocytes # (Manual) PT 15.7 H INR 1.28 H D-Dimer 4399.55 H POC ABG pH POC ABG pCO2 POC ABG pO2 Chloride Carbon Dioxide BUN Creatinine 0.5 L Glucose 142 H POC Glucose Alkaline Phosphatase 468 H Lactate Dehydrogenase C-Reactive Protein Albumin 2.8 L 04/08/19 04/09/19 04/09/19 21:07 03:42 03:42 WBC 19.9 H RBC 3.52 L Hgb 10.8 L Hct 33.1 L RDW 16.8 H Plt Count Lymph % (Auto) [place] % (Auto) [place] # Seg Neutrophils % Seg Neuts % (Manual) 94.0 H Lymphocytes % (Manual) 3.0 L Nucleated RBC % 1.0 H Seg Neutrophils # Seg Neutrophils # Man 18.7 H Lymphocytes # (Manual) 0.6 L Monocytes # (Manual) PT INR D-Dimer POC ABG pH 7.347 L POC ABG pCO2 51.0 H POC ABG pO2 308 H Chloride Carbon Dioxide BUN Creatinine 0.5 L Glucose 162 H POC Glucose Alkaline Phosphatase Lactate Dehydrogenase C-Reactive Protein Albumin 04/09/19 04/09/19 04/10/19 15:47 15:47 08:33 WBC RBC Hgb Hct RDW Plt Count Lymph % (Auto) [place] % (Auto) [place] # Seg Neutrophils % Seg Neuts % (Manual) Lymphocytes % (Manual) Nucleated RBC % Seg Neutrophils # Seg Neutrophils # Man Lymphocytes # (Manual) Monocytes # (Manual) PT INR D-Dimer POC ABG pH POC ABG pCO2 POC ABG pO2 Chloride Carbon Dioxide BUN Creatinine Glucose POC Glucose 152 H Alkaline Phosphatase Lactate Dehydrogenase 371 H C-Reactive Protein 21.80 H Albumin 04/10/19 04/10/19 04/13/19 11:29 16:05 04:25 WBC 21.4 H RBC Hgb 11.4 L Hct 33.9 L RDW 16.8 H Plt Count Lymph % (Auto) [place] % (Auto) [place] # Seg Neutrophils % Seg Neuts % (Manual) 93.0 H Lymphocytes % (Manual) 3.0 L Nucleated RBC % Seg Neutrophils # Seg Neutrophils # Man 19.9 H Lymphocytes # (Manual) 0.6 L Monocytes # (Manual) 0.9 H PT INR D-Dimer POC ABG pH POC ABG pCO2 POC ABG pO2 Chloride Carbon Dioxide BUN Creatinine Glucose POC Glucose 158 H 195 H Alkaline Phosphatase Lactate Dehydrogenase C-Reactive Protein Albumin 04/13/19 04/13/19 04:25 14:03 WBC RBC Hgb Hct RDW Plt Count 65 L Lymph % (Auto) [place] % (Auto) [place] # Seg Neutrophils % Seg Neuts % (Manual) Lymphocytes % (Manual) Nucleated RBC % Seg Neutrophils # Seg Neutrophils # Man Lymphocytes # (Manual) Monocytes # (Manual) PT INR D-Dimer POC ABG pH POC ABG pCO2 POC ABG pO2 Chloride 96.0 L Carbon Dioxide 35 H D BUN 27 H Creatinine 0.5 L Glucose 211 H POC Glucose Alkaline Phosphatase Lactate Dehydrogenase C-Reactive Protein Albumin Chest x-ray: pending Allied health notes reviewed: nursing
[2019-04-13] MEDS: BROVANA NEBU IH SCH (19:46)
[2019-04-14] MEDS: PERCOCET 5/325 PO PRN ×2 (03:22→13:32)
[2019-04-14] MEDS: TESSALON PERLES PO SCH ×4 (03:31→18:44)
[2019-04-14] MEDS: SOLU-Medrol IV SCH ×2 (04:10→17:26)
[2019-04-14] MEDS: CARDIZEM PO SCH ×4 (05:09→23:48)
[2019-04-14] MEDS: BROVANA NEBU IH SCH ×2 (09:30→21:25)
[2019-04-14] MEDS: PULMICORT IH SCH ×2 (09:30→21:24)
[2019-04-14] MEDS: DUONEB *Not for PRN Use IH SCH ×3 (09:31→21:25)
[2019-04-14] MEDS: SODIUM CHLORIDE FLUSH SYRINGE 10 ML IV SCH ×2 (09:51→22:25)
[2019-04-14] MEDS: HABITROL TD SCH (09:51)
[2019-04-14] MEDS: VITAMIN B-1 PO SCH (09:51)
[2019-04-14] MEDS: CORDARONE PO SCH (09:51)
[2019-04-14] MEDS: LOVENOX SUB-Q SCH (09:52)
[2019-04-14] MEDS: LASIX IV SCH (09:52)
[2019-04-14] MEDS: PEPCID PO SCH (09:52)
[2019-04-14] MEDS: LEVAQUIN 500MG/100ML 500 MG/100 ML BAG IV SCH (09:52)
[2019-04-14] MEDS: FOLVITE PO SCH (09:53)
--- NOTE | 2019-04-14 11:08 | Progress Note ---
Assessment and Plan Currently stable cardiac status. Will reduce PO amio to 200mg daily. Nothing further to add from cardiac perspective at this time. Will sign off. The patient has been seen in conjunction with Dr. Sanabria who agrees with assessment and plan of care. - Patient Problems (1) Atrial fibrillation with RVR Current Visit: No Status: Acute (2) Atrial flutter Current Visit: No Status: Acute (3) Acute respiratory distress Current Visit: Yes Status: Acute (4) Atelectasis of right lung Current Visit: Yes Status: Acute (5) Pericardial effusion without cardiac tamponade Current Visit: Yes Status: Acute (6) Pleural effusion Current Visit: Yes Status: Acute (7) Lung cancer Current Visit: Yes Status: Chronic Qualifiers: Laterality: right Lung location: overlapping sites Qualified Code(s): C34.81 - Malignant neoplasm of overlapping sites of right bronchus and lung (8) History of TB (tuberculosis) Current Visit: No Status: Chronic (9) Paroxysmal SVT (supraventricular tachycardia) Current Visit: Yes Status: Acute Subjective Date of service: 04/14/19 Principal diagnosis: Ac on ch hypoxemic resp failure; R. lung atelectasis; NSCLC; Leukocytosis Interval history: pt resting in bed, pt denies any current cardiac complaints. in SR. Objective Last Vital Signs Temp 98.0 F 04/14/19 07:39 Pulse 72 04/14/19 07:39 Resp 22 04/14/19 07:39 BP 135/90 04/14/19 07:39 Pulse Ox 97 04/14/19 07:39 - Physical Examination General: Cachectic HEENT: Positive: PERRL Neck: Positive: neck supple Cardiac: Positive: Reg Rate and Rhythm, S1/S2 Lungs: Positive: Decreased Breath Sounds Neuro: Positive: Grossly Intact Abdomen: Positive: Unremarkable Skin: Positive: Clear Musculoskeletal: Normal Range of Motion Extremities: Present: normal - Labs and Meds CBC 04/13/19 04/13/19 Range/Units 04:25 14:03 Plt Count Not Reportable 65 L - Imaging and Cardiology Echo: report reviewed (03/2019: LVEF of 55 to 60%, no pericardial effusion) - EKG Sinus rhythms and dysrhythmias: sinus tachycardia - Allied health notes Allied health notes reviewed: nursing
--- NOTE | 2019-04-14 13:45 | Progress Note ---
Assessment and Plan Acute on chronic hypoxemic respiratory failure. Complete right lung atelectasis. Non-small cell lung cancer, previously diagnosed. Leukocytosis, possibly also related to steroids. Anemia that is normocytic. Elevated D-dimers, likely due to malignancy. Adult failure to thrive. Malignant pleural effusion (Pleural fluid cytology is positive for adenocarcinoma) - continue supplemental oxygen and wean to keep O2 sat's > 90% - aspiration precautions - continue bronchodilators with pulmonary hygiene per RT - GI & VTE prophylaxis - AdenoCA treatment per heme-Onc team - continue other care per attending / other consultants ... re-evaluate in am & prn Subjective Date of service: 04/14/19 Principal diagnosis: Ac on ch hypoxemic resp failure; R. lung atelectasis; NSCLC; Leukocytosis Interval history: Patient is seen today for: Acute on chronic hypoxemic respiratory failure; Complete right lung atelectasis; Non-small cell lung cancer; Leukocytosis; Anemia; Elevated D-dimers; Adult failure to thrive. Seen and examined at bedside; 24hour events reviewed; nursing and respiratory care staff consulted; no adverse overnight events reported to me; doing better overall but remains on supplemental oxygen therapy; no chest pain Objective Vital Signs - 12hr 04/14/19 04/14/19 04/14/19 01:57 02:00 03:22 Temperature 97.8 F Pulse Rate 72 Respiratory 20 22 Rate Blood Pressure 129/79 O2 Sat by Pulse 94 93 Oximetry 04/14/19 04/14/19 04/14/19 04:00 04:22 05:09 Temperature Pulse Rate 72 82 Respiratory 21 Rate Blood Pressure 130/80 O2 Sat by Pulse Oximetry 04/14/19 07:39 Temperature 98.0 F Pulse Rate 72 Respiratory 22 Rate Blood Pressure 135/90 O2 Sat by Pulse 97 Oximetry Constitutional: no acute distress, alert, other (elderly looking thin male, normocephalic and atraumatic) Eyes: non-icteric ENT: oropharynx moist, other (mallampati 2) Neck: supple, no lymphadenopathy Effort: mildly labored Ascultation: Right: diminished breath sounds, Left: clear, Bilateral: other (Complete opacification of right lung.) Percussion: Right: dull Cardiovascular: regular rate and rhythm Gastrointestinal: normoactive bowel sounds, soft, non-tender, non-distended Integumentary: normal Extremities: no cyanosis, no edema, pulses normal, no ischemia or petechiae Neurologic: non-focal exam, pupils equal and round, CN II-XII normal, motor strength normal and Psychiatric: mood appropriate, affect normal CBC and BMP: 04/13/19 14:03 04/13/19 04:25 ABG, PT/INR, D-dimer: ABG POC ABG pH 7.347 (7.35-7.45) L 04/08/19 21:07 POC ABG pCO2 51.0 (35-45) H 04/08/19 21:07 POC ABG pO2 308 (80-105) H 04/08/19 21:07 POC ABG HCO3 28.0 (22-26 mml/L) 04/08/19 21:07 POC ABG Total CO2 29 (23-27mmol/L) 04/08/19 21:07 POC ABG O2 Sat 100 04/08/19 21:07 PT/INR, D-dimer PT 15.7 Sec. (12.2-14.9) H 04/07/19 23:50 INR 1.28 (0.87-1.13) H 04/07/19 23:50 4399.55 ng/mlDDU (0-234) H 04/07/19 23:50 Abnormal lab findings: Abnormal Labs 04/07/19 04/07/19 04/07/19 23:47 23:50 23:50 WBC 14.8 H RBC 3.03 L Hgb 9.5 L Hct 27.7 L RDW 16.4 H Plt Count 494 H Lymph % (Auto) 12.7 L [place] % (Auto) 12.1 H [place] # 1.8 H Seg Neutrophils % 71.9 H Seg Neuts % (Manual) Lymphocytes % (Manual) Nucleated RBC % Seg Neutrophils # 10.7 H Seg Neutrophils # Man Lymphocytes # (Manual) Monocytes # (Manual) PT 15.7 H INR 1.28 H D-Dimer 4399.55 H POC ABG pH POC ABG pCO2 POC ABG pO2 Chloride Carbon Dioxide BUN Creatinine 0.5 L Glucose 142 H POC Glucose Alkaline Phosphatase 468 H Lactate Dehydrogenase C-Reactive Protein Albumin 2.8 L 04/08/19 04/09/19 04/09/19 21:07 03:42 03:42 WBC 19.9 H RBC 3.52 L Hgb 10.8 L Hct 33.1 L RDW 16.8 H Plt Count Lymph % (Auto) [place] % (Auto) [place] # Seg Neutrophils % Seg Neuts % (Manual) 94.0 H Lymphocytes % (Manual) 3.0 L Nucleated RBC % 1.0 H Seg Neutrophils # Seg Neutrophils # Man 18.7 H Lymphocytes # (Manual) 0.6 L Monocytes # (Manual) PT INR D-Dimer POC ABG pH 7.347 L POC ABG pCO2 51.0 H POC ABG pO2 308 H Chloride Carbon Dioxide BUN Creatinine 0.5 L Glucose 162 H POC Glucose Alkaline Phosphatase Lactate Dehydrogenase C-Reactive Protein Albumin 04/09/19 04/09/19 04/10/19 15:47 15:47 08:33 WBC RBC Hgb Hct RDW Plt Count Lymph % (Auto) [place] % (Auto) [place] # Seg Neutrophils % Seg Neuts % (Manual) Lymphocytes % (Manual) Nucleated RBC % Seg Neutrophils # Seg Neutrophils # Man Lymphocytes # (Manual) Monocytes # (Manual) PT INR D-Dimer POC ABG pH POC ABG pCO2 POC ABG pO2 Chloride Carbon Dioxide BUN Creatinine Glucose POC Glucose 152 H Alkaline Phosphatase Lactate Dehydrogenase 371 H C-Reactive Protein 21.80 H Albumin 04/10/19 04/10/19 04/13/19 11:29 16:05 04:25 WBC 21.4 H RBC Hgb 11.4 L Hct 33.9 L RDW 16.8 H Plt Count Lymph % (Auto) [place] % (Auto) [place] # Seg Neutrophils % Seg Neuts % (Manual) 93.0 H Lymphocytes % (Manual) 3.0 L Nucleated RBC % Seg Neutrophils # Seg Neutrophils # Man 19.9 H Lymphocytes # (Manual) 0.6 L Monocytes # (Manual) 0.9 H PT INR D-Dimer POC ABG pH POC ABG pCO2 POC ABG pO2 Chloride Carbon Dioxide BUN Creatinine Glucose POC Glucose 158 H 195 H Alkaline Phosphatase Lactate Dehydrogenase C-Reactive Protein Albumin 04/13/19 04/13/19 04:25 14:03 WBC RBC Hgb Hct RDW Plt Count 65 L Lymph % (Auto) [place] % (Auto) [place] # Seg Neutrophils % Seg Neuts % (Manual) Lymphocytes % (Manual) Nucleated RBC % Seg Neutrophils # Seg Neutrophils # Man Lymphocytes # (Manual) Monocytes # (Manual) PT INR D-Dimer POC ABG pH POC ABG pCO2 POC ABG pO2 Chloride 96.0 L Carbon Dioxide 35 H D BUN 27 H Creatinine 0.5 L Glucose 211 H POC Glucose Alkaline Phosphatase Lactate Dehydrogenase C-Reactive Protein Albumin Allied health notes reviewed: nursing
--- NOTE | 2019-04-14 16:04 | Progress Note ---
Assessment and Plan Assessment and plan: Difficulty breathing History of present illness: 68-year-old male who is a former smoker with history of COPD, remote history of tuberculosis, newly diagnosed with non-small cell lung carcinoma (03/2019) presents to [facility] with complaints of difficulty with breathing, [place] and cough Review of chart shows that patient was recently diagnosed with non-small cell lung cancer last month and advised to follow-up with Dr. Haider outpatient. Patient states he was unable to do so due to finances. Past History Past Medical History: cancer (lung cancer diagnosed 03/2019), COPD, other (remote history of TB diagnosis 1986, treated for 6 months, patient had negative AFB 4 in March 2019) CTA chest; 1. There is complete atelectasis/collapse of the right lung with abrupt cut off of the right mainstem bronchus which may be due to mucous plug or neoplasm. Bronchoscopy is recommended. 2. Small to moderate right pleural effusion, increased in size. 3. Moderate pericardial effusion, new since the prior. 4. No acute PTE is seen. Acute hypoxic respiratory failure/Right lung collapse/ COPD flare ; cont high flow oxygen, steroids and nebs, mgt per pulm etoh abuse/withdrawal; ciwa protocol Agitation/anxiety; Ativan as needed Acute metabolic encephalopathy Was due to alcohol withdrawal and his hypoxia, improving A. fib with RVR, hypercoagulable states Rate control meds per cardiology, improving Right lung effusion Status post thoracentesis on 04/11, 500 mL of fluid was drained, cultures are negative Moderate pericardial effusion- seen on CTA chest 04/07/2019; chest pain Cardiology input appreciated, there is a moderate size pericardial effusion without tamponade not, follow-up echo Non-small cell lung carcinoma-newly diagnosed 03/2019 oncologist consult pending SIRS; no evidence of infection at this time Blood cultures negative, right lung fluid culture is negative Remote history of TB- 1986 (AFB 4 negative 03/2019; patient has been cleared by ID) History of tobacco abuse Preventative health counseling performed for 17 minutes Smoking cessation counseling performed for 10 minutes, nicotine patches ordered -health services rn consult place due to financial limitations with treatments DVT PPX on Lovenox Critical care time 35 minutes History Interval history: Patient continues to have shortness of breath and cough no fever Has been anxious and agitated No vomiting or seizures, no chest pain Hospitalist Physical - Physical exam Narrative exam: General.: severe resp distress, nontoxic HEENT: Moist mucous membranes, extraocular muscles intact, no lymphadenopathy Neck: supple Cardiac: S1-S2 heard Lungs: Severely decreased air entry, dull on right Abdomen: soft , nontender, nondistended, bowel sounds positive Extremities: no edema clubbing or cyanosis Skin: no rash or lesions Neurologic: no gross focal deficits Psych: calm, and cooperative - Constitutional Vitals: Temp Pulse Resp BP Pulse Ox 97.7 F 86 20 140/94 94 04/14/19 13:27 04/14/19 13:27 04/14/19 13:27 04/14/19 13:27 04/14/19 13:27 General appearance: Present: mild distress Results - Labs CBC & Chem 7: 04/13/19 14:03 04/13/19 04:25 Labs: Laboratory Last Values WBC 21.4 K/mm3 (4.5-11.0) H 04/13/19 04:25 RBC 3.72 M/mm3 (3.65-5.03) 04/13/19 04:25 Hgb 11.4 gm/dl (11.8-15.2) L 04/13/19 04:25 Hct 33.9 % (35.5-45.6) L 04/13/19 04:25 MCV 91 fl (84-94) 04/13/19 04:25 MCH 31 pg (28-32) 04/13/19 04:25 MCHC 34 % (32-34) 04/13/19 04:25 RDW 16.8 % (13.2-15.2) H 04/13/19 04:25 Plt Count 65 K/mm3 (140-440) L 04/13/19 14:03 Lymph % (Auto) 12.7 % (13.4-35.0) L 04/07/19 23:47 [place] % (Auto) 12.1 % (0.0-7.3) H 04/07/19 23:47 Eos % (Auto) 2.7 % (0.0-4.3) 04/07/19 23:47 Baso % (Auto) 0.6 % (0.0-1.8) 04/07/19 23:47 Lymph # 1.9 K/mm3 (1.2-5.4) 04/07/19 23:47 [place] # 1.8 K/mm3 (0.0-0.8) H 04/07/19 23:47 Eos # 0.4 K/mm3 (0.0-0.4) 04/07/19 23:47 Baso # 0.1 K/mm3 (0.0-0.1) 04/07/19 23:47 Add Manual Diff Complete 04/13/19 04:25 Total Counted 100 04/13/19 04:25 Seg Neutrophils % Stave Saw Operator 04/13/19 04:25 Seg Neuts % (Manual) 93.0 % (40.0-70.0) H 04/13/19 04:25 0 % 04/13/19 04:25 3.0 % (13.4-35.0) L 04/13/19 04:25 Reactive Lymphs % (Man) 0 % 04/13/19 04:25 4.0 % (0.0-7.3) 04/13/19 04:25 0 % (0.0-4.3) 04/13/19 04:25 0 % (0.0-1.8) 04/13/19 04:25 0 % 04/13/19 04:25 0 % 04/13/19 04:25 0 % 04/13/19 04:25 0 % 04/13/19 04:25 Nucleated RBC % Not Reportable 04/13/19 04:25 Seg Neutrophils # 10.7 K/mm3 (1.8-7.7) H 04/07/19 23:47 Seg Neutrophils # Man 19.9 K/mm3 (1.8-7.7) H 04/13/19 04:25 Band Neutrophils # 0.0 K/mm3 04/13/19 04:25 0.6 K/mm3 (1.2-5.4) L 04/13/19 04:25 Abs React Lymphs (Man) 0.0 K/mm3 04/13/19 04:25 0.9 K/mm3 (0.0-0.8) H 04/13/19 04:25 0.0 K/mm3 (0.0-0.4) 04/13/19 04:25 0.0 K/mm3 (0.0-0.1) 04/13/19 04:25 0.0 K/mm3 04/13/19 04:25 0.0 K/mm3 04/13/19 04:25 0.0 K/mm3 04/13/19 04:25 Blast Cells # 0.0 K/mm3 04/13/19 04:25 WBC Morphology Not Reportable 04/13/19 04:25 Hypersegmented Neuts Not Reportable 04/13/19 04:25 Hyposegmented Neuts Not Reportable 04/13/19 04:25 Hypogranular Neuts Not Reportable 04/13/19 04:25 Not Reportable 04/13/19 04:25 Not Reportable 04/13/19 04:25 Not Reportable 04/13/19 04:25 Not Reportable 04/13/19 04:25 Not Reportable 04/13/19 04:25 Not Reportable 04/13/19 04:25 Consistent w auto 04/13/19 04:25 Not Reportable 04/13/19 04:25 Plt Clumps, EDTA Not Reportable 04/13/19 04:25 Rare 04/13/19 04:25 Not Reportable 04/13/19 04:25 Not Reportable 04/13/19 04:25 Plt Morphology Comment Not Reportable 04/13/19 04:25 RBC Morphology Not Reportable 04/13/19 04:25 Dimorphic RBCs Not Reportable 04/13/19 04:25 Rare 04/13/19 04:25 Not Reportable 04/13/19 04:25 Few 04/13/19 04:25 Few 04/13/19 04:25 Not Reportable 04/13/19 04:25 Not Reportable 04/13/19 04:25 Not Reportable 04/13/19 04:25 Not Reportable 04/13/19 04:25 Not Reportable 04/13/19 04:25 Few 04/13/19 04:25 Not Reportable 04/13/19 04:25 Not Reportable 04/13/19 04:25 Not Reportable 04/13/19 04:25 Not Reportable 04/13/19 04:25 Not Reportable 04/13/19 04:25 Not Reportable 04/13/19 04:25 Not Reportable 04/13/19 04:25 Not Reportable 04/13/19 04:25 Not Reportable 04/13/19 04:25 Acanthocytes (Spur) Not Reportable 04/13/19 04:25 Rouleaux Not Reportable 04/13/19 04:25 Not Reportable 04/13/19 04:25 Not Reportable 04/13/19 04:25 Not Reportable 04/13/19 04:25 Not Reportable 04/13/19 04:25 Hem Pathologist Commnt No 04/13/19 04:25 PT 15.7 Sec. (12.2-14.9) H 04/07/19 23:50 INR 1.28 (0.87-1.13) H 04/07/19 23:50 APTT 36.5 Sec. (24.2-36.6) 04/07/19 23:50 4399.55 ng/mlDDU (0-234) H 04/07/19 23:50 POC ABG pH 7.347 (7.35-7.45) L 04/08/19 21:07 POC ABG pCO2 51.0 (35-45) H 04/08/19 21:07 POC ABG pO2 308 (80-105) H 04/08/19 21:07 POC ABG HCO3 28.0 (22-26 mml/L) 04/08/19 21:07 POC ABG Total CO2 29 (23-27mmol/L) 04/08/19 21:07 POC ABG O2 Sat 100 04/08/19 21:07 POC ABG Base Excess 2 ((-2) - (+3)mmol/L) 04/08/19 21:07 100 % 04/08/19 21:07 Sodium 142 mmol/L (137-145) 04/13/19 04:25 Potassium 4.1 mmol/L (3.6-5.0) 04/13/19 04:25 Chloride 96.0 mmol/L (98-107) L 04/13/19 04:25 Carbon Dioxide 35 mmol/L (22-30) H D 04/13/19 04:25 15 mmol/L 04/13/19 04:25 BUN 27 mg/dL (9-20) H 04/13/19 04:25 0.5 mg/dL (0.8-1.5) L 04/13/19 04:25 Estimated GFR > 60 ml/min 04/13/19 04:25 54 % 04/13/19 04:25 Glucose 211 mg/dL (75-100) H 04/13/19 04:25 POC Glucose 195 (70-105) H 04/10/19 16:05 Lactic Acid 1.70 mmol/L (0.7-2.0) 04/08/19 04:04 Calcium 8.9 mg/dL (8.4-10.2) 04/13/19 04:25 Phosphorus 4.00 mg/dL (2.5-4.5) 04/09/19 16:53 Magnesium 2.10 mg/dL (1.7-2.3) 04/09/19 16:53 0.50 mg/dL (0.1-1.2) 04/07/19 23:50 AST 31 units/L (5-40) 04/07/19 23:50 ALT 40 units/L (7-56) 04/07/19 23:50 468 units/L (35-129) H 04/07/19 23:50 371 units/L (91-180) H 04/09/19 15:47 < 0.010 ng/mL (0.00-0.029) 04/08/19 01:19 21.80 mg/dL (0.00-1.30) H 04/09/19 15:47 NT-Pro-B Natriuret Pep 361.4 pg/mL (0-900) 04/07/19 23:47 6.7 g/dL (6.3-8.2) 04/07/19 23:50 2.8 g/dL (3.9-5) L 04/07/19 23:50 0.7 % 04/07/19 23:50 Active Medications - Current Medications Current Medications: Generic Name Dose Route Start Last Admin Trade Name Freq PRN Reason Stop Dose Admin Acetaminophen 650 mg 04/08/19 03:56 Tylenol PO Q4H PRN Pain MILD(1-3)/Fever >100.5/BOO Albuterol 2.5 mg 04/13/19 09:15 Proventil IH Q4HRT PRN Shortness Of Breath Albuterol/Ipratropium 1 ampul 04/13/19 14:00 04/14/19 14:52 Duoneb *Not For Prn Use* IH 1 ampul TIDRT FRANCISCO JAVIER Administration Amiodarone HCl 200 mg 04/15/19 10:00 Cordarone PO DAILY FRANCISCO JAVIER Arformoterol Tartrate 15 mcg 04/13/19 20:00 04/14/19 09:30 Brojoe Nebu IH 15 mcg Q12HRT FRANCISCO JAVIER Administration Benzonatate 200 mg 04/09/19 11:00 04/14/19 13:28 Tessalon Perles PO 200 mg Q8H FRANCISCO JAVIER Administration Budesonide 0.5 mg 04/13/19 20:00 04/14/19 09:30 Pulmicort IH 0.5 mg Q12HRT FRANCISCO JAVIER Administration Diltiazem HCl 60 mg 04/09/19 11:00 04/14/19 13:28 Cardizem PO 60 mg Q6H FRANCISCO JAVIER Administration Enoxaparin Sodium 40 mg 04/08/19 10:00 04/14/19 09:52 Lovenox SUB-Q 40 mg QDAY@1000 FRANCISCO JAVIER Administration Famotidine 20 mg 04/10/19 10:00 04/14/19 09:52 Pepcid PO 20 mg QDAY FRANCISCO JAVIER Administration Folic Acid 1 mg 04/11/19 10:00 04/14/19 09:53 Folvite PO 1 mg QDAY FRANCISCO JAVIER Administration Furosemide 40 mg 04/10/19 10:00 04/14/19 09:52 Lasix IV 40 mg QDAY FRANCISCO JAVIER Administration Haloperidol Lactate 5 mg 04/09/19 16:42 04/10/19 02:27 Haldol IV 5 mg Q6H PRN Administration Unrespon. to mult. doses BZD's Lorazepam 1 mg 04/09/19 10:20 04/10/19 17:02 Ativan IV 1 mg Q4H PRN Administration Agitation Methylprednisolone Sodium Succinate 40 mg 04/09/19 16:00 04/14/19 04:10 Solu-Medrol IV 40 mg Q12H FRANCISCO JAVIER Administration Morphine Sulfate 2 mg 04/08/19 11:14 04/10/19 20:33 Morphine IV 2 mg Q4H PRN Administration Pain , Severe (7-10) Nicotine 14 mg 04/10/19 13:00 04/14/19 09:51 Habitrol TD 14 mg QDAY FRANCISCO JAVIER Administration Ondansetron HCl 4 mg 04/08/19 03:56 Zofran IV Q8H PRN Nausea And Vomiting Oxycodone/Acetaminophen 1 tab 04/08/19 03:56 04/14/19 13:32 Percocet 5/325 PO 1 tab Q6H PRN Administration Pain, Moderate (4-6) Sodium Chloride 10 ml 04/08/19 10:00 04/14/19 09:51 Sodium Chloride Flush Syringe 10 Ml IV 10 ml BID FRANCISCO JAVIER Administration Sodium Chloride 10 ml 04/08/19 03:56 04/08/19 22:15 Sodium Chloride Flush Syringe 10 Ml IV 10 ml PRN PRN Administration LINE FLUSH Thiamine HCl 100 mg 04/11/19 10:00 04/14/19 09:51 Vitamin B-1 PO 100 mg QDAY FRANCISCO JAVIER Administration Nutrition/Malnutrition Assess - Dietary Evaluation Nutrition/Malnutrition Findings: Nutrition Notes Start: 04/09/19 13:11 Freq: Status: Active Protocol: Document 04/12/19 13:43 BILL (Rec: 04/12/19 13:55 BILL [email or web address]) Nutrition Notes Initial or Follow up Reassessment Current Diagnosis COPD Other Pertinent Diagnosis New dx lung CA, DELMY Current Diet Cardiac + Ensure Enlive daily Labs/Tests No current available Pertinent Medications Amiodarone gtt, Folic acid, Lasix, Thiamine Height 5 ft 4 in Weight 51.1 kg [place] Body Weight (kg) 59.09 BMI 19.3 Weight Status Underweight Subjective/Other Information No PO intakes documented, however, pt reports poor appetite, but has been drinking the ONS. Says he eats <50% of meals. Currently on high-flow O2 support. Pt with hx of EtOH dependence. Burn Absent Trauma Absent Skin Integrity/Comment Artemio: 18 Energy Intake (severe) < or equal to 50% Estimated Energy Requirement > or equal to 5 days Body Fat Depletion Moderate depletion (severe) Muscle Mass Moderate Depletion (severe) Protein-Calorie Malnutrition Severe #2 Nutrition Diagnosis Malnutrition Etiology hx of EtOH dep and likelihood of inadequate PO intake As Evidenced by Signs and Symptoms BMI <23, subcutaneous fat loss and muscle loss, poor PO intake #1 Nutrition Diagnosis Inadequate oral intake Diagnosis Progress(for reassessment Continues documentation) Is patient on ventilator? No Is Patient Ambulatory and/or Out of Bed No REE-([place]-confined to bed) 1448.124 Kcal/Kg value to use for calculation 35 Approximate Energy Requirements Using 1789 kcal/Kg Calculation Used for Recommendations Kcal/kg Additional Notes Pro needs 1.2-1.5g/k-77g/ day Fluid needs 1ml/kcal Nutrition Intervention Change Diet Order: Continue current diet Add Supplement/Snack (indicate name/kcal Ensure Enlive TID /protein ) Provides kCal: 1,050 Provides Protein (gm) 60 Goal #1 PO intake of meals plus ONS to meet at least 75% energy and pro needs Goal #2 Wt maintenance and/or gain Anticipated Discharge Needs: Continue Ensure Enlive (or equivalent) 2-3 bottles daily for wt maintenance Follow-Up By: 04/17/19 Additional Comments F/U: intakes
[2019-04-15] MEDS: PERCOCET 5/325 PO PRN ×3 (04:04→22:45)
[2019-04-15] MEDS: TESSALON PERLES PO SCH ×3 (04:05→18:35)
[2019-04-15] MEDS: SOLU-Medrol IV SCH ×2 (04:12→15:43)
[2019-04-15] MEDS: CARDIZEM PO SCH ×4 (06:39→22:46)
[2019-04-15] MEDS: DUONEB *Not for PRN Use IH SCH ×3 (07:56→20:25)
[2019-04-15] MEDS: PULMICORT IH SCH ×2 (07:57→20:25)
[2019-04-15] MEDS: BROVANA NEBU IH SCH ×2 (07:57→20:25)
[2019-04-15] MEDS: LASIX IV SCH (09:47)
[2019-04-15] MEDS: CORDARONE PO SCH (09:47)
[2019-04-15] MEDS: FOLVITE PO SCH (09:47)
[2019-04-15] MEDS: VITAMIN B-1 PO SCH (09:47)
[2019-04-15] MEDS: PEPCID PO SCH (09:47)
[2019-04-15] MEDS: HABITROL TD SCH (09:47)
[2019-04-15] MEDS: SODIUM CHLORIDE FLUSH SYRINGE 10 ML IV SCH ×2 (09:48→22:46)
[2019-04-15] MEDS: LOVENOX SUB-Q SCH (09:48)
--- NOTE | 2019-04-15 10:26 | Progress Note ---
Assessment and Plan Patient alert, awake. Resting on Vapotherm, FIO2 100%, O2 saturation 95%. Patient is weak but no acute respiratory distress. Patient afebrile. Has leukocytosis. B/P 140/80. Pleural fluid results still pending. - Patient Problems (1) Acute respiratory distress Current Visit: Yes Status: Acute Plan to address problem: O2 supplementation through vapotherm 100%. Albuterol/atrovent aerosol tratments q 6 hours. Continue I/V solumedrol. Continue Levaquin. Continue Famotidine. Continue S/C Lovenox. Recommend chest PT. (2) Atelectasis of right lung Current Visit: Yes Status: Acute Plan to address problem: Patient undergone right thoracentesis on 04/11/19. Pleural fluid results still pending. Aerosolized bronchodilators Chest PT. (3) Pleural effusion Current Visit: Yes Status: Acute Plan to address problem: Patient undergone right thoracentesis 04/11/19. Pleural fluid results still pending. (4) Paroxysmal atrial flutter Current Visit: No Status: Acute Plan to address problem: Patient is on cardiazem Management as per cardiology. (5) Lung cancer Current Visit: Yes Status: Chronic Qualifiers: Laterality: right Lung location: overlapping sites Qualified Code(s): C34.81 - Malignant neoplasm of overlapping sites of right bronchus and lung Plan to address problem: Oncology consulted. Subjective Date of service: 04/15/19 Principal diagnosis: Ac on ch hypoxemic resp failure; R. lung atelectasis; NSCLC; Leukocytosis Interval history: Patient alert, awake. Resting on Vapotherm, FIO2 100%, O2 saturation 95%. Patient is weak but no acute respiratory distress. Patient afebrile. Has leukocytosis. B/P 140/80. Pleural fluid results still pending. Objective Vital Signs - 12hr 04/14/19 04/15/19 04/15/19 23:48 02:30 07:05 Temperature 97.6 F 98.0 F Pulse Rate 89 77 78 Pulse Rate [ Posterior Right Throughout] Respiratory 18 20 Rate Respiratory Rate [Posterior Right Throughout] Blood Pressure 133/86 140/80 O2 Sat by Pulse 94 95 Oximetry 04/15/19 04/15/19 07:50 08:00 Temperature Pulse Rate Pulse Rate [ 89 88 Posterior Right Throughout] Respiratory Rate Respiratory 18 18 Rate [Posterior Right Throughout] Blood Pressure O2 Sat by Pulse 95 Oximetry Constitutional: no acute distress, alert, other (elderly looking thin male, normocephalic and atraumatic) Eyes: non-icteric ENT: oropharynx moist, other (mallampati 2) Neck: supple, no lymphadenopathy Effort: mildly labored Ascultation: Right: diminished breath sounds, Bilateral: other (Complete o pacification of right lung.) Percussion: Right: dull Cardiovascular: regular rate and rhythm Gastrointestinal: normoactive bowel sounds, soft, non-tender, non-distended Integumentary: normal Extremities: no cyanosis, no edema, pulses normal, no ischemia or petechiae Neurologic: non-focal exam, pupils equal and round, CN II-XII normal, motor strength normal and Psychiatric: mood appropriate, affect normal CBC and BMP: 04/13/19 14:03 04/13/19 04:25 ABG, PT/INR, D-dimer: ABG POC ABG pH 7.347 (7.35-7.45) L 04/08/19 21:07 POC ABG pCO2 51.0 (35-45) H 04/08/19 21:07 POC ABG pO2 308 (80-105) H 04/08/19 21:07 POC ABG HCO3 28.0 (22-26 mml/L) 04/08/19 21:07 POC ABG Total CO2 29 (23-27mmol/L) 04/08/19 21:07 POC ABG O2 Sat 100 04/08/19 21:07 PT/INR, D-dimer PT 15.7 Sec. (12.2-14.9) H 04/07/19 23:50 INR 1.28 (0.87-1.13) H 04/07/19 23:50 4399.55 ng/mlDDU (0-234) H 04/07/19 23:50 Abnormal lab findings: Abnormal Labs 04/07/19 04/07/19 04/07/19 23:47 23:50 23:50 WBC 14.8 H RBC 3.03 L Hgb 9.5 L Hct 27.7 L RDW 16.4 H Plt Count 494 H Lymph % (Auto) 12.7 L [place] % (Auto) 12.1 H [place] # 1.8 H Seg Neutrophils % 71.9 H Seg Neuts % (Manual) Lymphocytes % (Manual) Nucleated RBC % Seg Neutrophils # 10.7 H Seg Neutrophils # Man Lymphocytes # (Manual) Monocytes # (Manual) PT 15.7 H INR 1.28 H D-Dimer 4399.55 H POC ABG pH POC ABG pCO2 POC ABG pO2 Chloride Carbon Dioxide BUN Creatinine 0.5 L Glucose 142 H POC Glucose Alkaline Phosphatase 468 H Lactate Dehydrogenase C-Reactive Protein Albumin 2.8 L 04/08/19 04/09/19 04/09/19 21:07 03:42 03:42 WBC 19.9 H RBC 3.52 L Hgb 10.8 L Hct 33.1 L RDW 16.8 H Plt Count Lymph % (Auto) [place] % (Auto) [place] # Seg Neutrophils % Seg Neuts % (Manual) 94.0 H Lymphocytes % (Manual) 3.0 L Nucleated RBC % 1.0 H Seg Neutrophils # Seg Neutrophils # Man 18.7 H Lymphocytes # (Manual) 0.6 L Monocytes # (Manual) PT INR D-Dimer POC ABG pH 7.347 L POC ABG pCO2 51.0 H POC ABG pO2 308 H Chloride Carbon Dioxide BUN Creatinine 0.5 L Glucose 162 H POC Glucose Alkaline Phosphatase Lactate Dehydrogenase C-Reactive Protein Albumin 04/09/19 04/09/19 04/10/19 15:47 15:47 08:33 WBC RBC Hgb Hct RDW Plt Count Lymph % (Auto) [place] % (Auto) [place] # Seg Neutrophils % Seg Neuts % (Manual) Lymphocytes % (Manual) Nucleated RBC % Seg Neutrophils # Seg Neutrophils # Man Lymphocytes # (Manual) Monocytes # (Manual) PT INR D-Dimer POC ABG pH POC ABG pCO2 POC ABG pO2 Chloride Carbon Dioxide BUN Creatinine Glucose POC Glucose 152 H Alkaline Phosphatase Lactate Dehydrogenase 371 H C-Reactive Protein 21.80 H Albumin 04/10/19 04/10/19 04/13/19 11:29 16:05 04:25 WBC 21.4 H RBC Hgb 11.4 L Hct 33.9 L RDW 16.8 H Plt Count Lymph % (Auto) [place] % (Auto) [place] # Seg Neutrophils % Seg Neuts % (Manual) 93.0 H Lymphocytes % (Manual) 3.0 L Nucleated RBC % Seg Neutrophils # Seg Neutrophils # Man 19.9 H Lymphocytes # (Manual) 0.6 L Monocytes # (Manual) 0.9 H PT INR D-Dimer POC ABG pH POC ABG pCO2 POC ABG pO2 Chloride Carbon Dioxide BUN Creatinine Glucose POC Glucose 158 H 195 H Alkaline Phosphatase Lactate Dehydrogenase C-Reactive Protein Albumin 04/13/19 04/13/19 04:25 14:03 WBC RBC Hgb Hct RDW Plt Count 65 L Lymph % (Auto) [place] % (Auto) [place] # Seg Neutrophils % Seg Neuts % (Manual) Lymphocytes % (Manual) Nucleated RBC % Seg Neutrophils # Seg Neutrophils # Man Lymphocytes # (Manual) Monocytes # (Manual) PT INR D-Dimer POC ABG pH POC ABG pCO2 POC ABG pO2 Chloride 96.0 L Carbon Dioxide 35 H D BUN 27 H Creatinine 0.5 L Glucose 211 H POC Glucose Alkaline Phosphatase Lactate Dehydrogenase C-Reactive Protein Albumin Allied health notes reviewed: nursing
--- NOTE | 2019-04-15 16:53 | Progress Note ---
Assessment and Plan Assessment and plan: Difficulty breathing History of present illness: 68-year-old male who is a former smoker with history of COPD, remote history of tuberculosis, newly diagnosed with non-small cell lung carcinoma (03/2019) presents to [facility] ED with complaints of difficulty with breathing, [place] and cough Review of chart shows that patient was recently diagnosed with non-small cell lung cancer last month and advised to follow-up with Dr. Haider outpatient. Patient states he was unable to do so due to finances. Past History Past Medical History: cancer (lung cancer diagnosed 03/2019), COPD, other (remote history of TB diagnosis 1986, treated for 6 months, patient had negative AFB 4 in March 2019) CTA chest; 1. There is complete atelectasis/collapse of the right lung with abrupt cut off of the right mainstem bronchus which may be due to mucous plug or neoplasm. Bronchoscopy is recommended. 2. Small to moderate right pleural effusion, increased in size. 3. Moderate pericardial effusion, new since the prior. 4. No acute PTE is seen. Acute hypoxic respiratory failure/Right lung collapse/ COPD flare ; cont high flow oxygen, steroids and nebs, mgt per pulm etoh abuse/withdrawal; ciwa protocol Agitation/anxiety; Ativan as needed Acute metabolic encephalopathy Was due to alcohol withdrawal and his hypoxia, improving A. fib with RVR, hypercoagulable states Rate control meds per cardiology, improving Right lung effusion Status post thoracentesis on 04/11, 500 mL of fluid was drained, cultures are negative Moderate pericardial effusion- seen on CTA chest 04/07/2019; chest pain Cardiology input appreciated, there is a moderate size pericardial effusion without tamponade not, follow-up echo Non-small cell lung carcinoma-newly diagnosed 03/2019 oncologist consult pending SIRS; no evidence of infection at this time Blood cultures negative, right lung fluid culture is negative Remote history of TB- 1986 (AFB 4 negative 03/2019; patient has been cleared by ID) History of tobacco abuse Preventative health counseling performed for 17 minutes Smoking cessation counseling performed for 10 minutes, nicotine patches ordered -food and nutrition services supervisor consult place due to financial limitations with treatments DVT PPX on Lovenox Critical care time 35 minutes History Interval history: Patient continues to have shortness of breath and cough no fever Has been anxious and agitated No vomiting or seizures, no chest pain Hospitalist Physical - Physical exam Narrative exam: General.: severe resp distress, nontoxic HEENT: Moist mucous membranes, extraocular muscles intact, no lymphadenopathy Neck: supple Cardiac: S1-S2 heard Lungs: Severely decreased air entry, dull on right Abdomen: soft , nontender, nondistended, bowel sounds positive Extremities: no edema clubbing or cyanosis Skin: no rash or lesions Neurologic: no gross focal deficits Psych: calm, and cooperative - Constitutional Vitals: Temp Pulse Resp BP Pulse Ox 97.9 F 85 18 127/83 97 04/15/19 13:09 04/15/19 13:57 04/15/19 13:57 04/15/19 13:09 04/15/19 13:55 General appearance: Present: mild distress Results - Labs CBC & Chem 7: 04/13/19 14:03 04/13/19 04:25 Labs: Laboratory Last Values WBC 21.4 K/mm3 (4.5-11.0) H 04/13/19 04:25 RBC 3.72 M/mm3 (3.65-5.03) 04/13/19 04:25 Hgb 11.4 gm/dl (11.8-15.2) L 04/13/19 04:25 Hct 33.9 % (35.5-45.6) L 04/13/19 04:25 MCV 91 fl (84-94) 04/13/19 04:25 MCH 31 pg (28-32) 04/13/19 04:25 MCHC 34 % (32-34) 04/13/19 04:25 RDW 16.8 % (13.2-15.2) H 04/13/19 04:25 Plt Count 65 K/mm3 (140-440) L 04/13/19 14:03 Lymph % (Auto) 12.7 % (13.4-35.0) L 04/07/19 23:47 [place] % (Auto) 12.1 % (0.0-7.3) H 04/07/19 23:47 Eos % (Auto) 2.7 % (0.0-4.3) 04/07/19 23:47 Baso % (Auto) 0.6 % (0.0-1.8) 04/07/19 23:47 Lymph # 1.9 K/mm3 (1.2-5.4) 04/07/19 23:47 [place] # 1.8 K/mm3 (0.0-0.8) H 04/07/19 23:47 Eos # 0.4 K/mm3 (0.0-0.4) 04/07/19 23:47 Baso # 0.1 K/mm3 (0.0-0.1) 04/07/19 23:47 Add Manual Diff Complete 04/13/19 04:25 Total Counted 100 04/13/19 04:25 Seg Neutrophils % Plant Etiologist 04/13/19 04:25 Seg Neuts % (Manual) 93.0 % (40.0-70.0) H 04/13/19 04:25 0 % 04/13/19 04:25 3.0 % (13.4-35.0) L 04/13/19 04:25 Reactive Lymphs % (Man) 0 % 04/13/19 04:25 4.0 % (0.0-7.3) 04/13/19 04:25 0 % (0.0-4.3) 04/13/19 04:25 0 % (0.0-1.8) 04/13/19 04:25 0 % 04/13/19 04:25 0 % 04/13/19 04:25 0 % 04/13/19 04:25 0 % 04/13/19 04:25 Nucleated RBC % Not Reportable 04/13/19 04:25 Seg Neutrophils # 10.7 K/mm3 (1.8-7.7) H 04/07/19 23:47 Seg Neutrophils # Man 19.9 K/mm3 (1.8-7.7) H 04/13/19 04:25 Band Neutrophils # 0.0 K/mm3 04/13/19 04:25 0.6 K/mm3 (1.2-5.4) L 04/13/19 04:25 Abs React Lymphs (Man) 0.0 K/mm3 04/13/19 04:25 0.9 K/mm3 (0.0-0.8) H 04/13/19 04:25 0.0 K/mm3 (0.0-0.4) 04/13/19 04:25 0.0 K/mm3 (0.0-0.1) 04/13/19 04:25 0.0 K/mm3 04/13/19 04:25 0.0 K/mm3 04/13/19 04:25 0.0 K/mm3 04/13/19 04:25 Blast Cells # 0.0 K/mm3 04/13/19 04:25 WBC Morphology Not Reportable 04/13/19 04:25 Hypersegmented Neuts Not Reportable 04/13/19 04:25 Hyposegmented Neuts Not Reportable 04/13/19 04:25 Hypogranular Neuts Not Reportable 04/13/19 04:25 Not Reportable 04/13/19 04:25 Not Reportable 04/13/19 04:25 Not Reportable 04/13/19 04:25 Not Reportable 04/13/19 04:25 Not Reportable 04/13/19 04:25 Not Reportable 04/13/19 04:25 Consistent w auto 04/13/19 04:25 Not Reportable 04/13/19 04:25 Plt Clumps, EDTA Not Reportable 04/13/19 04:25 Rare 04/13/19 04:25 Not Reportable 04/13/19 04:25 Not Reportable 04/13/19 04:25 Plt Morphology Comment Not Reportable 04/13/19 04:25 RBC Morphology Not Reportable 04/13/19 04:25 Dimorphic RBCs Not Reportable 04/13/19 04:25 Rare 04/13/19 04:25 Not Reportable 04/13/19 04:25 Few 04/13/19 04:25 Few 04/13/19 04:25 Not Reportable 04/13/19 04:25 Not Reportable 04/13/19 04:25 Not Reportable 04/13/19 04:25 Not Reportable 04/13/19 04:25 Not Reportable 04/13/19 04:25 Few 04/13/19 04:25 Not Reportable 04/13/19 04:25 Not Reportable 04/13/19 04:25 Not Reportable 04/13/19 04:25 Not Reportable 04/13/19 04:25 Not Reportable 04/13/19 04:25 Not Reportable 04/13/19 04:25 Not Reportable 04/13/19 04:25 Not Reportable 04/13/19 04:25 Not Reportable 04/13/19 04:25 Acanthocytes (Spur) Not Reportable 04/13/19 04:25 Rouleaux Not Reportable 04/13/19 04:25 Not Reportable 04/13/19 04:25 Not Reportable 04/13/19 04:25 Not Reportable 04/13/19 04:25 Not Reportable 04/13/19 04:25 Hem Pathologist Commnt No 04/13/19 04:25 PT 15.7 Sec. (12.2-14.9) H 04/07/19 23:50 INR 1.28 (0.87-1.13) H 04/07/19 23:50 APTT 36.5 Sec. (24.2-36.6) 04/07/19 23:50 4399.55 ng/mlDDU (0-234) H 04/07/19 23:50 POC ABG pH 7.347 (7.35-7.45) L 04/08/19 21:07 POC ABG pCO2 51.0 (35-45) H 04/08/19 21:07 POC ABG pO2 308 (80-105) H 04/08/19 21:07 POC ABG HCO3 28.0 (22-26 mml/L) 04/08/19 21:07 POC ABG Total CO2 29 (23-27mmol/L) 04/08/19 21:07 POC ABG O2 Sat 100 04/08/19 21:07 POC ABG Base Excess 2 ((-2) - (+3)mmol/L) 04/08/19 21:07 100 % 04/08/19 21:07 Sodium 142 mmol/L (137-145) 04/13/19 04:25 Potassium 4.1 mmol/L (3.6-5.0) 04/13/19 04:25 Chloride 96.0 mmol/L (98-107) L 04/13/19 04:25 Carbon Dioxide 35 mmol/L (22-30) H D 04/13/19 04:25 15 mmol/L 04/13/19 04:25 BUN 27 mg/dL (9-20) H 04/13/19 04:25 0.5 mg/dL (0.8-1.5) L 04/13/19 04:25 Estimated GFR > 60 ml/min 04/13/19 04:25 54 % 04/13/19 04:25 Glucose 211 mg/dL (75-100) H 04/13/19 04:25 POC Glucose 195 (70-105) H 04/10/19 16:05 Lactic Acid 1.70 mmol/L (0.7-2.0) 04/08/19 04:04 Calcium 8.9 mg/dL (8.4-10.2) 04/13/19 04:25 Phosphorus 4.00 mg/dL (2.5-4.5) 04/09/19 16:53 Magnesium 2.10 mg/dL (1.7-2.3) 04/09/19 16:53 0.50 mg/dL (0.1-1.2) 04/07/19 23:50 AST 31 units/L (5-40) 04/07/19 23:50 ALT 40 units/L (7-56) 04/07/19 23:50 468 units/L (35-129) H 04/07/19 23:50 371 units/L (91-180) H 04/09/19 15:47 < 0.010 ng/mL (0.00-0.029) 04/08/19 01:19 21.80 mg/dL (0.00-1.30) H 04/09/19 15:47 NT-Pro-B Natriuret Pep 361.4 pg/mL (0-900) 04/07/19 23:47 6.7 g/dL (6.3-8.2) 04/07/19 23:50 2.8 g/dL (3.9-5) L 04/07/19 23:50 0.7 % 04/07/19 23:50 Active Medications - Current Medications Current Medications: Generic Name Dose Route Start Last Admin Trade Name Freq PRN Reason Stop Dose Admin Acetaminophen 650 mg 04/08/19 03:56 Tylenol PO Q4H PRN Pain MILD(1-3)/Fever >100.5/BOO Albuterol 2.5 mg 04/13/19 09:15 Proventil IH Q4HRT PRN Shortness Of Breath Albuterol/Ipratropium 1 ampul 04/13/19 14:00 04/15/19 13:53 Duoneb *Not For Prn Use* IH 1 ampul TIDRT FRANCISCO JAVIER Administration Amiodarone HCl 200 mg 04/15/19 10:00 04/15/19 09:47 Cordarone PO 200 mg DAILY FRANCISCO JAVIER Administration Arformoterol Tartrate 15 mcg 04/13/19 20:00 04/15/19 07:57 Mekhi Lobou IH 15 mcg Q12HRT FRANCISCO JAVIER Administration Benzonatate 200 mg 04/09/19 11:00 04/15/19 13:46 Tessalon Perles PO 200 mg Q8H FRANCISCO JAVIER Administration Budesonide 0.5 mg 04/13/19 20:00 04/15/19 07:57 Pulmicort IH 0.5 mg Q12HRT FRANCISCO JAVIER Administration Diltiazem HCl 60 mg 04/09/19 11:00 04/15/19 13:46 Cardizem PO 60 mg Q6H FRANCISCO JAVIER Administration Enoxaparin Sodium 40 mg 04/08/19 10:00 04/15/19 09:48 Lovenox SUB-Q 40 mg QDAY@1000 FRANCISCO JAVIER Administration Famotidine 20 mg 04/10/19 10:00 04/15/19 09:47 Pepcid PO 20 mg QDAY FRANCISCO JAVIER Administration Folic Acid 1 mg 04/11/19 10:00 04/15/19 09:47 Folvite PO 1 mg QDAY FRANCISCO JAVIER Administration Furosemide 40 mg 04/10/19 10:00 04/15/19 09:47 Lasix IV 40 mg QDAY FRANCISCO JAVIER Administration Haloperidol Lactate 5 mg 04/09/19 16:42 04/10/19 02:27 Haldol IV 5 mg Q6H PRN Administration Unrespon. to mult. doses BZD's Lorazepam 1 mg 04/09/19 10:20 04/10/19 17:02 Ativan IV 1 mg Q4H PRN Administration Agitation Methylprednisolone Sodium Succinate 40 mg 04/09/19 16:00 04/15/19 15:43 Solu-Medrol IV 40 mg Q12H FRANCISCO JAVIER Administration Morphine Sulfate 2 mg 04/08/19 11:14 04/10/19 20:33 Morphine IV 2 mg Q4H PRN Administration Pain , Severe (7-10) Nicotine 14 mg 04/10/19 13:00 04/15/19 09:47 Habitrol TD 14 mg QDAY FRANCISCO JAVIER Administration Ondansetron HCl 4 mg 04/08/19 03:56 Zofran IV Q8H PRN Nausea And Vomiting Oxycodone/Acetaminophen 1 tab 04/08/19 03:56 04/15/19 15:43 Percocet 5/325 PO 1 tab Q6H PRN Administration Pain, Moderate (4-6) Sodium Chloride 10 ml 04/08/19 10:00 04/15/19 09:48 Sodium Chloride Flush Syringe 10 Ml IV 10 ml BID FRANCISCO JAVIER Administration Sodium Chloride 10 ml 04/08/19 03:56 04/08/19 22:15 Sodium Chloride Flush Syringe 10 Ml IV 10 ml PRN PRN Administration LINE FLUSH Thiamine HCl 100 mg 04/11/19 10:00 04/15/19 09:47 Vitamin B-1 PO 100 mg QDAY FRANCISCO JAVIER Administration Nutrition/Malnutrition Assess - Dietary Evaluation Nutrition/Malnutrition Findings: Nutrition Notes Start: 04/09/19 13:11 Freq: Status: Active Protocol: Document 04/12/19 13:43 BILL (Rec: 04/12/19 13:55 BILL [email or web address]) Nutrition Notes Initial or Follow up Reassessment Current Diagnosis COPD Other Pertinent Diagnosis New dx lung CA, DELMY Current Diet Cardiac + Ensure Enlive daily Labs/Tests No current available Pertinent Medications Amiodarone gtt, Folic acid, Lasix, Thiamine Height 5 ft 4 in Weight 51.1 kg [place] Body Weight (kg) 59.09 BMI 19.3 Weight Status Underweight Subjective/Other Information No PO intakes documented, however, pt reports poor appetite, but has been drinking the ONS. Says he eats <50% of meals. Currently on high-flow O2 support. Pt with hx of EtOH dependence. Burn Absent Trauma Absent Skin Integrity/Comment Artemio: 18 Energy Intake (severe) < or equal to 50% Estimated Energy Requirement > or equal to 5 days Body Fat Depletion Moderate depletion (severe) Muscle Mass Moderate Depletion (severe) Protein-Calorie Malnutrition Severe #2 Nutrition Diagnosis Malnutrition Etiology hx of EtOH dep and likelihood of inadequate PO intake As Evidenced by Signs and Symptoms BMI <23, subcutaneous fat loss and muscle loss, poor PO intake #1 Nutrition Diagnosis Inadequate oral intake Diagnosis Progress(for reassessment Continues documentation) Is patient on ventilator? No Is Patient Ambulatory and/or Out of Bed No REE-([place]-confined to bed) 1448.124 Kcal/Kg value to use for calculation 35 Approximate Energy Requirements Using 1789 kcal/Kg Calculation Used for Recommendations Kcal/kg Additional Notes Pro needs 1.2-1.5g/k-77g/ day Fluid needs 1ml/kcal Nutrition Intervention Change Diet Order: Continue current diet Add Supplement/Snack (indicate name/kcal Ensure Enlive TID /protein ) Provides kCal: 1,050 Provides Protein (gm) 60 Goal #1 PO intake of meals plus ONS to meet at least 75% energy and pro needs Goal #2 Wt maintenance and/or gain Anticipated Discharge Needs: Continue Ensure Enlive (or equivalent) 2-3 bottles daily for wt maintenance Follow-Up By: 04/17/19 Additional Comments F/U: intakes
[2019-04-16] MEDS: TESSALON PERLES PO SCH ×3 (03:54→19:32)
[2019-04-16] MEDS: CARDIZEM PO SCH ×4 (04:37→23:01)
[2019-04-16] MEDS: SOLU-Medrol IV SCH ×2 (04:38→15:51)
[2019-04-16] MEDS: PERCOCET 5/325 PO PRN ×3 (07:44→19:32)
[2019-04-16] MEDS: BROVANA NEBU IH SCH ×2 (08:00→20:48)
[2019-04-16] MEDS: PULMICORT IH SCH ×2 (08:00→20:19)
[2019-04-16] MEDS: DUONEB *Not for PRN Use IH SCH ×3 (08:02→20:19)
[2019-04-16] MEDS: FOLVITE PO SCH (09:25)
[2019-04-16] MEDS: HABITROL TD SCH (09:25)
[2019-04-16] MEDS: CORDARONE PO SCH (09:26)
[2019-04-16] MEDS: LASIX IV SCH (09:26)
[2019-04-16] MEDS: VITAMIN B-1 PO SCH (09:26)
[2019-04-16] MEDS: PEPCID PO SCH (09:26)
[2019-04-16] MEDS: LOVENOX SUB-Q SCH (09:27)
[2019-04-16] MEDS: SODIUM CHLORIDE FLUSH SYRINGE 10 ML IV SCH ×2 (09:27→23:02)
--- NOTE | 2019-04-16 13:59 | Progress Note ---
Assessment and Plan Patient alert, awake. Resting on Vapotherm, FIO2 100%, O2 saturation 97%. Patient is weak but no acute respiratory distress. Patient afebrile. Has leukocytosis. B/P 123/79. Pleural fluid results still pending. - Patient Problems (1) Acute respiratory distress Current Visit: Yes Status: Acute Plan to address problem: O2 supplementation through vapotherm 100%. Albuterol/atrovent aerosol tratments q 6 hours. Continue I/V solumedrol. Continue Levaquin. Continue Famotidine. Continue S/C Lovenox. Recommend chest PT. (2) Atelectasis of right lung Current Visit: Yes Status: Acute Plan to address problem: Patient undergone right thoracentesis on 04/11/19. Pleural fluid results still pending. Aerosolized bronchodilators Chest PT. (3) Pleural effusion Current Visit: Yes Status: Acute Plan to address problem: Patient undergone right thoracentesis 04/11/19. Pleural fluid results still pending. (4) Paroxysmal atrial flutter Current Visit: No Status: Acute Plan to address problem: Patient is on cardiazem Management as per cardiology. (5) Lung cancer Current Visit: Yes Status: Chronic Qualifiers: Laterality: right Lung location: overlapping sites Qualified Code(s): C34.81 - Malignant neoplasm of overlapping sites of right bronchus and lung Plan to address problem: Oncology consulted. Subjective Date of service: 04/16/19 Principal diagnosis: Ac on ch hypoxemic resp failure; R. lung atelectasis; NSCLC; Leukocytosis Interval history: Patient alert, awake. Resting on 3 litres O2, O2 saturation 97%. Patient is weak but no acute respiratory distress. Patient afebrile. Has leukocytosis. B/P 123/79. Pleural fluid results still pending. Objective Vital Signs - 12hr 04/16/19 04/16/19 04/16/19 02:24 02:55 04:37 Temperature 97.8 F 97.8 F Pulse Rate 71 71 71 Pulse Rate [ From Monitor] Pulse Rate [ Posterior Right Throughout] Respiratory 14 Rate Respiratory Rate [Posterior Right Throughout] Blood Pressure 124/80 124/86 Blood Pressure 124/86 [Left] O2 Sat by Pulse 98 Oximetry 04/16/19 04/16/19 04/16/19 07:44 07:52 08:00 Temperature 97.5 F L Pulse Rate 72 Pulse Rate [ From Monitor] Pulse Rate [ 87 Posterior Right Throughout] Respiratory 18 18 Rate Respiratory 18 Rate [Posterior Right Throughout] Blood Pressure 118/80 Blood Pressure [Left] O2 Sat by Pulse 98 97 Oximetry 04/16/19 04/16/19 04/16/19 08:14 10:00 11:24 Temperature Pulse Rate Pulse Rate [ 90 From Monitor] Pulse Rate [ 90 Posterior Right Throughout] Respiratory 18 Rate Respiratory 18 Rate [Posterior Right Throughout] Blood Pressure 123/79 Blood Pressure [Left] O2 Sat by Pulse 97 Oximetry 04/16/19 11:47 Temperature Pulse Rate 81 Pulse Rate [ From Monitor] Pulse Rate [ Posterior Right Throughout] Respiratory Rate Respiratory Rate [Posterior Right Throughout] Blood Pressure 123/79 Blood Pressure [Left] O2 Sat by Pulse Oximetry Constitutional: no acute distress, alert, other (elderly looking thin male, normocephalic and atraumatic) Eyes: non-icteric ENT: oropharynx moist, other (mallampati 2) Neck: supple, no lymphadenopathy Effort: mildly labored Ascultation: Right: diminished breath sounds, Bilateral: other (Complete opacification of right lung.) Percussion: Right: dull Cardiovascular: regular rate and rhythm Gastrointestinal: normoactive bowel sounds, soft, non-tender, non-distended Integumentary: normal Extremities: no cyanosis, no edema, pulses normal, no ischemia or petechiae Neurologic: non-focal exam, pupils equal and round, CN II-XII normal, motor strength normal and Psychiatric: mood appropriate, affect normal CBC and BMP: 04/13/19 14:03 04/13/19 04:25 ABG, PT/INR, D-dimer: ABG POC ABG pH 7.347 (7.35-7.45) L 04/08/19 21:07 POC ABG pCO2 51.0 (35-45) H 04/08/19 21:07 POC ABG pO2 308 (80-105) H 04/08/19 21:07 POC ABG HCO3 28.0 (22-26 mml/L) 04/08/19 21:07 POC ABG Total CO2 29 (23-27mmol/L) 04/08/19 21:07 POC ABG O2 Sat 100 04/08/19 21:07 PT/INR, D-dimer PT 15.7 Sec. (12.2-14.9) H 04/07/19 23:50 INR 1.28 (0.87-1.13) H 04/07/19 23:50 4399.55 ng/mlDDU (0-234) H 04/07/19 23:50 Abnormal lab findings: Abnormal Labs 04/07/19 04/07/19 04/07/19 23:47 23:50 23:50 WBC 14.8 H RBC 3.03 L Hgb 9.5 L Hct 27.7 L RDW 16.4 H Plt Count 494 H Lymph % (Auto) 12.7 L Borden % (Auto) 12.1 H Borden # 1.8 H Seg Neutrophils % 71.9 H Seg Neuts % (Manual) Lymphocytes % (Manual) Nucleated RBC % Seg Neutrophils # 10.7 H Seg Neutrophils # Man Lymphocytes # (Manual) Monocytes # (Manual) PT 15.7 H INR 1.28 H D-Dimer 4399.55 H POC ABG pH POC ABG pCO2 POC ABG pO2 Chloride Carbon Dioxide BUN Creatinine 0.5 L Glucose 142 H POC Glucose Alkaline Phosphatase 468 H Lactate Dehydrogenase C-Reactive Protein Albumin 2.8 L 04/08/19 04/09/19 04/09/19 21:07 03:42 03:42 WBC 19.9 H RBC 3.52 L Hgb 10.8 L Hct 33.1 L RDW 16.8 H Plt Count Lymph % (Auto) Borden % (Auto) Borden # Seg Neutrophils % Seg Neuts % (Manual) 94.0 H Lymphocytes % (Manual) 3.0 L Nucleated RBC % 1.0 H Seg Neutrophils # Seg Neutrophils # Man 18.7 H Lymphocytes # (Manual) 0.6 L Monocytes # (Manual) PT INR D-Dimer POC ABG pH 7.347 L POC ABG pCO2 51.0 H POC ABG pO2 308 H Chloride Carbon Dioxide BUN Creatinine 0.5 L Glucose 162 H POC Glucose Alkaline Phosphatase Lactate Dehydrogenase C-Reactive Protein Albumin 04/09/19 04/09/19 04/10/19 15:47 15:47 08:33 WBC RBC Hgb Hct RDW Plt Count Lymph % (Auto) Borden % (Auto) Borden # Seg Neutrophils % Seg Neuts % (Manual) Lymphocytes % (Manual) Nucleated RBC % Seg Neutrophils # Seg Neutrophils # Man Lymphocytes # (Manual) Monocytes # (Manual) PT INR D-Dimer POC ABG pH POC ABG pCO2 POC ABG pO2 Chloride Carbon Dioxide BUN Creatinine Glucose POC Glucose 152 H Alkaline Phosphatase Lactate Dehydrogenase 371 H C-Reactive Protein 21.80 H Albumin 04/10/19 04/10/19 04/13/19 11:29 16:05 04:25 WBC 21.4 H RBC Hgb 11.4 L Hct 33.9 L RDW 16.8 H Plt Count Lymph % (Auto) Borden % (Auto) Borden # Seg Neutrophils % Seg Neuts % (Manual) 93.0 H Lymphocytes % (Manual) 3.0 L Nucleated RBC % Seg Neutrophils # Seg Neutrophils # Man 19.9 H Lymphocytes # (Manual) 0.6 L Monocytes # (Manual) 0.9 H PT INR D-Dimer POC ABG pH POC ABG pCO2 POC ABG pO2 Chloride Carbon Dioxide BUN Creatinine Glucose POC Glucose 158 H 195 H Alkaline Phosphatase Lactate Dehydrogenase C-Reactive Protein Albumin 04/13/19 04/13/19 04:25 14:03 WBC RBC Hgb Hct RDW Plt Count 65 L Lymph % (Auto) Borden % (Auto) Borden # Seg Neutrophils % Seg Neuts % (Manual) Lymphocytes % (Manual) Nucleated RBC % Seg Neutrophils # Seg Neutrophils # Man Lymphocytes # (Manual) Monocytes # (Manual) PT INR D-Dimer POC ABG pH POC ABG pCO2 POC ABG pO2 Chloride 96.0 L Carbon Dioxide 35 H D BUN 27 H Creatinine 0.5 L Glucose 211 H POC Glucose Alkaline Phosphatase Lactate Dehydrogenase C-Reactive Protein Albumin Allied health notes reviewed: nursing
--- NOTE | 2019-04-16 14:21 | Progress Note ---
Assessment and Plan Assessment and plan: Difficulty breathing History of present illness: 68-year-old male who is a former smoker with history of COPD, remote history of tuberculosis, newly diagnosed with non-small cell lung carcinoma (03/2019) presents to [facility] ED with complaints of difficulty with breathing, [place] and cough Review of chart shows that patient was recently diagnosed with non-small cell lung cancer last month and advised to follow-up with Dr. Haider outpatient. Patient states he was unable to do so due to finances. Past History Past Medical History: cancer (lung cancer diagnosed 03/2019), COPD, other (remote history of TB diagnosis 1986, treated for 6 months, patient had negative AFB 4 in March 2019) CTA chest; 1. There is complete atelectasis/collapse of the right lung with abrupt cut off of the right mainstem bronchus which may be due to mucous plug or neoplasm. Bronchoscopy is recommended. 2. Small to moderate right pleural effusion, increased in size. 3. Moderate pericardial effusion, new since the prior. 4. No acute PTE is seen. Acute hypoxic respiratory failure/Right lung collapse/ COPD flare ; cont high flow oxygen, steroids and nebs, mgt per pulm etoh abuse/withdrawal; ciwa protocol Agitation/anxiety; Ativan as needed Acute metabolic encephalopathy Was due to alcohol withdrawal and his hypoxia, improving A. fib with RVR, hypercoagulable states Rate control meds per cardiology, improving Right lung effusion Status post thoracentesis on 04/11, 500 mL of fluid was drained, cultures are negative Moderate pericardial effusion- seen on CTA chest 04/07/2019; chest pain Cardiology input appreciated, there is a moderate size pericardial effusion without tamponade not, follow-up echo Non-small cell lung carcinoma-newly diagnosed 03/2019 oncologist consult appreciated," We will look into palliative radiation evaluation" SIRS; no evidence of infection at this time Blood cultures negative, right lung fluid culture is negative Remote history of TB- 1986 (AFB 4 negative 03/2019; patient has been cleared by ID) History of tobacco abuse Preventative health counseling performed for 17 minutes Smoking cessation counseling performed for 10 minutes, nicotine patches ordered -assistant guest services manager consult place due to financial limitations with treatments dc home with home oxygen tomorrow DVT PPX on Lovenox History Interval history: e shortness of breath and cough is resolved no fever No vomiting or seizures, no chest pain Hospitalist Physical - Physical exam Narrative exam: General.: no distress HEENT: Moist mucous membranes, extraocular muscles intact, no lymphadenopathy Neck: supple Cardiac: S1-S2 heard Lungs: Severely decreased air entry, dull on right base Abdomen: soft , nontender, nondistended, bowel sounds positive Extremities: no edema clubbing or cyanosis Skin: no rash or lesions Neurologic: no gross focal deficits Psych: calm, and cooperative - Constitutional Vitals: Temp Pulse Resp BP Pulse Ox 97.5 F L 81 20 123/79 97 04/16/19 07:52 04/16/19 11:47 04/16/19 13:55 04/16/19 11:47 04/16/19 10:00 General appearance: Present: mild distress Results - Labs CBC & Chem 7: 04/13/19 14:03 04/13/19 04:25 Labs: Laboratory Last Values WBC 21.4 K/mm3 (4.5-11.0) H 04/13/19 04:25 RBC 3.72 M/mm3 (3.65-5.03) 04/13/19 04:25 Hgb 11.4 gm/dl (11.8-15.2) L 04/13/19 04:25 Hct 33.9 % (35.5-45.6) L 04/13/19 04:25 MCV 91 fl (84-94) 04/13/19 04:25 MCH 31 pg (28-32) 04/13/19 04:25 MCHC 34 % (32-34) 04/13/19 04:25 RDW 16.8 % (13.2-15.2) H 04/13/19 04:25 Plt Count 65 K/mm3 (140-440) L 04/13/19 14:03 Lymph % (Auto) 12.7 % (13.4-35.0) L 04/07/19 23:47 Chase % (Auto) 12.1 % (0.0-7.3) H 04/07/19 23:47 Eos % (Auto) 2.7 % (0.0-4.3) 04/07/19 23:47 Baso % (Auto) 0.6 % (0.0-1.8) 04/07/19 23:47 Lymph # 1.9 K/mm3 (1.2-5.4) 04/07/19 23:47 Chase # 1.8 K/mm3 (0.0-0.8) H 04/07/19 23:47 Eos # 0.4 K/mm3 (0.0-0.4) 04/07/19 23:47 Baso # 0.1 K/mm3 (0.0-0.1) 04/07/19 23:47 Add Manual Diff Complete 04/13/19 04:25 Total Counted 100 04/13/19 04:25 Seg Neutrophils % Voltage Regulator Assembler 04/13/19 04:25 Seg Neuts % (Manual) 93.0 % (40.0-70.0) H 04/13/19 04:25 0 % 04/13/19 04:25 3.0 % (13.4-35.0) L 04/13/19 04:25 Reactive Lymphs % (Man) 0 % 04/13/19 04:25 4.0 % (0.0-7.3) 04/13/19 04:25 0 % (0.0-4.3) 04/13/19 04:25 0 % (0.0-1.8) 04/13/19 04:25 0 % 04/13/19 04:25 0 % 04/13/19 04:25 0 % 04/13/19 04:25 0 % 04/13/19 04:25 Nucleated RBC % Not Reportable 04/13/19 04:25 Seg Neutrophils # 10.7 K/mm3 (1.8-7.7) H 04/07/19 23:47 Seg Neutrophils # Man 19.9 K/mm3 (1.8-7.7) H 04/13/19 04:25 Band Neutrophils # 0.0 K/mm3 04/13/19 04:25 0.6 K/mm3 (1.2-5.4) L 04/13/19 04:25 Abs React Lymphs (Man) 0.0 K/mm3 04/13/19 04:25 0.9 K/mm3 (0.0-0.8) H 04/13/19 04:25 0.0 K/mm3 (0.0-0.4) 04/13/19 04:25 0.0 K/mm3 (0.0-0.1) 04/13/19 04:25 0.0 K/mm3 04/13/19 04:25 0.0 K/mm3 04/13/19 04:25 0.0 K/mm3 04/13/19 04:25 Blast Cells # 0.0 K/mm3 04/13/19 04:25 WBC Morphology Not Reportable 04/13/19 04:25 Hypersegmented Neuts Not Reportable 04/13/19 04:25 Hyposegmented Neuts Not Reportable 04/13/19 04:25 Hypogranular Neuts Not Reportable 04/13/19 04:25 Not Reportable 04/13/19 04:25 Not Reportable 04/13/19 04:25 Not Reportable 04/13/19 04:25 Not Reportable 04/13/19 04:25 Not Reportable 04/13/19 04:25 Not Reportable 04/13/19 04:25 Consistent w auto 04/13/19 04:25 Not Reportable 04/13/19 04:25 Plt Clumps, EDTA Not Reportable 04/13/19 04:25 Rare 04/13/19 04:25 Not Reportable 04/13/19 04:25 Not Reportable 04/13/19 04:25 Plt Morphology Comment Not Reportable 04/13/19 04:25 RBC Morphology Not Reportable 04/13/19 04:25 Dimorphic RBCs Not Reportable 04/13/19 04:25 Rare 04/13/19 04:25 Not Reportable 04/13/19 04:25 Few 04/13/19 04:25 Few 04/13/19 04:25 Not Reportable 04/13/19 04:25 Not Reportable 04/13/19 04:25 Not Reportable 04/13/19 04:25 Not Reportable 04/13/19 04:25 Not Reportable 04/13/19 04:25 Few 04/13/19 04:25 Not Reportable 04/13/19 04:25 Not Reportable 04/13/19 04:25 Not Reportable 04/13/19 04:25 Not Reportable 04/13/19 04:25 Not Reportable 04/13/19 04:25 Not Reportable 04/13/19 04:25 Not Reportable 04/13/19 04:25 Not Reportable 04/13/19 04:25 Not Reportable 04/13/19 04:25 Acanthocytes (Spur) Not Reportable 04/13/19 04:25 Rouleaux Not Reportable 04/13/19 04:25 Not Reportable 04/13/19 04:25 Not Reportable 04/13/19 04:25 Not Reportable 04/13/19 04:25 Not Reportable 04/13/19 04:25 Hem Pathologist Commnt No 04/13/19 04:25 PT 15.7 Sec. (12.2-14.9) H 04/07/19 23:50 INR 1.28 (0.87-1.13) H 04/07/19 23:50 APTT 36.5 Sec. (24.2-36.6) 04/07/19 23:50 4399.55 ng/mlDDU (0-234) H 04/07/19 23:50 POC ABG pH 7.347 (7.35-7.45) L 04/08/19 21:07 POC ABG pCO2 51.0 (35-45) H 04/08/19 21:07 POC ABG pO2 308 (80-105) H 04/08/19 21:07 POC ABG HCO3 28.0 (22-26 mml/L) 04/08/19 21:07 POC ABG Total CO2 29 (23-27mmol/L) 04/08/19 21:07 POC ABG O2 Sat 100 04/08/19 21:07 POC ABG Base Excess 2 ((-2) - (+3)mmol/L) 04/08/19 21:07 100 % 04/08/19 21:07 Sodium 142 mmol/L (137-145) 04/13/19 04:25 Potassium 4.1 mmol/L (3.6-5.0) 04/13/19 04:25 Chloride 96.0 mmol/L (98-107) L 04/13/19 04:25 Carbon Dioxide 35 mmol/L (22-30) H D 04/13/19 04:25 15 mmol/L 04/13/19 04:25 BUN 27 mg/dL (9-20) H 04/13/19 04:25 0.5 mg/dL (0.8-1.5) L 04/13/19 04:25 Estimated GFR > 60 ml/min 04/13/19 04:25 54 % 04/13/19 04:25 Glucose 211 mg/dL (75-100) H 04/13/19 04:25 POC Glucose 195 (70-105) H 04/10/19 16:05 Lactic Acid 1.70 mmol/L (0.7-2.0) 04/08/19 04:04 Calcium 8.9 mg/dL (8.4-10.2) 04/13/19 04:25 Phosphorus 4.00 mg/dL (2.5-4.5) 04/09/19 16:53 Magnesium 2.10 mg/dL (1.7-2.3) 04/09/19 16:53 0.50 mg/dL (0.1-1.2) 04/07/19 23:50 AST 31 units/L (5-40) 04/07/19 23:50 ALT 40 units/L (7-56) 04/07/19 23:50 468 units/L (35-129) H 04/07/19 23:50 371 units/L (91-180) H 04/09/19 15:47 < 0.010 ng/mL (0.00-0.029) 04/08/19 01:19 21.80 mg/dL (0.00-1.30) H 04/09/19 15:47 NT-Pro-B Natriuret Pep 361.4 pg/mL (0-900) 04/07/19 23:47 6.7 g/dL (6.3-8.2) 04/07/19 23:50 2.8 g/dL (3.9-5) L 04/07/19 23:50 0.7 % 04/07/19 23:50 Active Medications - Current Medications Current Medications: Generic Name Dose Route Start Last Admin Trade Name Freq PRN Reason Stop Dose Admin Acetaminophen 650 mg 04/08/19 03:56 Tylenol PO Q4H PRN Pain MILD(1-3)/Fever >100.5/BOO Albuterol 2.5 mg 04/13/19 09:15 Proventil IH Q4HRT PRN Shortness Of Breath Albuterol/Ipratropium 1 ampul 04/13/19 14:00 04/16/19 08:02 Duoneb *Not For Prn Use* IH Not Given TIDRT FRANCISCO JAVIER Amiodarone HCl 200 mg 04/15/19 10:00 04/16/19 09:26 Cordarone PO 200 mg DAILY FRANCISCO JAVIER Administration Arformoterol Tartrate 15 mcg 04/13/19 20:00 04/16/19 08:00 Mekhi Lobou IH 15 mcg Q12HRT FRANCISCO JAVIER Administration Benzonatate 200 mg 04/09/19 11:00 04/16/19 11:48 Tessalon Perles PO 200 mg Q8H FRANCISCO JAVIER Administration Budesonide 0.5 mg 04/13/19 20:00 04/16/19 08:00 Pulmicort IH 0.5 mg Q12HRT FRANCISCO JAVIER Administration Diltiazem HCl 60 mg 04/09/19 11:00 04/16/19 11:47 Cardizem PO 60 mg Q6H FRANCISCO JAVIER Administration Enoxaparin Sodium 40 mg 04/08/19 10:00 04/16/19 09:27 Lovenox SUB-Q 40 mg QDAY@1000 FRANCISCO JAVIER Administration Famotidine 20 mg 04/10/19 10:00 04/16/19 09:26 Pepcid PO 20 mg QDAY FRANCISCO JAVIER Administration Folic Acid 1 mg 04/11/19 10:00 04/16/19 09:25 Folvite PO 1 mg QDAY FRANCISCO JAVIER Administration Furosemide 40 mg 04/10/19 10:00 04/16/19 09:26 Lasix IV 40 mg QDAY FRANCISCO JAVIER Administration Haloperidol Lactate 5 mg 04/09/19 16:42 04/10/19 02:27 Haldol IV 5 mg Q6H PRN Administration Unrespon. to mult. doses BZD's Lorazepam 1 mg 04/09/19 10:20 04/10/19 17:02 Ativan IV 1 mg Q4H PRN Administration Agitation Methylprednisolone Sodium Succinate 40 mg 04/09/19 16:00 04/16/19 04:38 Solu-Medrol IV 40 mg Q12H FRANCISCO JAVIER Administration Morphine Sulfate 2 mg 04/08/19 11:14 04/10/19 20:33 Morphine IV 2 mg Q4H PRN Administration Pain , Severe (7-10) Nicotine 14 mg 04/10/19 13:00 04/16/19 09:25 Habitrol TD 14 mg QDAY FRANCISCO JAVIER Administration Ondansetron HCl 4 mg 04/08/19 03:56 Zofran IV Q8H PRN Nausea And Vomiting Oxycodone/Acetaminophen 1 tab 04/08/19 03:56 04/16/19 13:55 Percocet 5/325 PO 1 tab Q6H PRN Administration Pain, Moderate (4-6) Sodium Chloride 10 ml 04/08/19 10:00 04/16/19 09:27 Sodium Chloride Flush Syringe 10 Ml IV 10 ml BID FRANCISCO JAVIER Administration Sodium Chloride 10 ml 04/08/19 03:56 04/08/19 22:15 Sodium Chloride Flush Syringe 10 Ml IV 10 ml PRN PRN Administration LINE FLUSH Thiamine HCl 100 mg 04/11/19 10:00 04/16/19 09:26 Vitamin B-1 PO 100 mg QDAY FRANCISCO JAVIER Administration Nutrition/Malnutrition Assess - Dietary Evaluation Nutrition/Malnutrition Findings: Nutrition Notes Start: 04/09/19 13:11 Freq: Status: Active Protocol: Document 04/12/19 13:43 BILL (Rec: 04/12/19 13:55 BILL [email or web address]) Nutrition Notes Initial or Follow up Reassessment Current Diagnosis COPD Other Pertinent Diagnosis New dx lung CA, DELMY Current Diet Cardiac + Ensure Enlive daily Labs/Tests No current available Pertinent Medications Amiodarone gtt, Folic acid, Lasix, Thiamine Height 5 ft 4 in Weight 51.1 kg Sullivan Body Weight (kg) 59.09 BMI 19.3 Weight Status Underweight Subjective/Other Information No PO intakes documented, however, pt reports poor appetite, but has been drinking the ONS. Says he eats <50% of meals. Currently on high-flow O2 support. Pt with hx of EtOH dependence. Burn Absent Trauma Absent Skin Integrity/Comment Artemio: 18 Energy Intake (severe) < or equal to 50% Estimated Energy Requirement > or equal to 5 days Body Fat Depletion Moderate depletion (severe) Muscle Mass Moderate Depletion (severe) Protein-Calorie Malnutrition Severe #2 Nutrition Diagnosis Malnutrition Etiology hx of EtOH dep and likelihood of inadequate PO intake As Evidenced by Signs and Symptoms BMI <23, subcutaneous fat loss and muscle loss, poor PO intake #1 Nutrition Diagnosis Inadequate oral intake Diagnosis Progress(for reassessment Continues documentation) Is patient on ventilator? No Is Patient Ambulatory and/or Out of Bed No REE-([facility]-confined to bed) 1448.124 Kcal/Kg value to use for calculation 35 Approximate Energy Requirements Using 1789 kcal/Kg Calculation Used for Recommendations Kcal/kg Additional Notes Pro needs 1.2-1.5g/k-77g/ day Fluid needs 1ml/kcal Nutrition Intervention Change Diet Order: Continue current diet Add Supplement/Snack (indicate name/kcal Ensure Enlive TID /protein ) Provides kCal: 1,050 Provides Protein (gm) 60 Goal #1 PO intake of meals plus ONS to meet at least 75% energy and pro needs Goal #2 Wt maintenance and/or gain Anticipated Discharge Needs: Continue Ensure Enlive (or equivalent) 2-3 bottles daily for wt maintenance Follow-Up By: 04/17/19 Additional Comments F/U: intakes
[2019-04-17] MEDS: SOLU-Medrol IV SCH (03:07)
[2019-04-17] MEDS: PERCOCET 5/325 PO PRN ×2 (03:07→09:56)
[2019-04-17] MEDS: TESSALON PERLES PO SCH (03:46)
[2019-04-17] MEDS: MORPHINE IV PRN (06:54)
[2019-04-17] MEDS: PULMICORT IH SCH (08:00)
[2019-04-17] MEDS: BROVANA NEBU IH SCH (08:00)
[2019-04-17] MEDS: DUONEB *Not for PRN Use IH SCH (08:01)
[2019-04-17 08:07] VITALS: BP 140/92
[2019-04-17 08:12] LABS: Total Protein,Body Fluid < 3.0 (15.0-45.0)
[2019-04-17 08:13] LABS: LDH,Body Fluid 345
[2019-04-17] MEDS: FOLVITE PO SCH (09:56)
[2019-04-17] MEDS: VITAMIN B-1 PO SCH (09:58)
[2019-04-17] MEDS: PEPCID PO SCH (09:58)
[2019-04-17] MEDS: LOVENOX SUB-Q SCH (09:58)
[2019-04-17] MEDS: CORDARONE PO SCH (09:58)
[2019-04-17] MEDS: HABITROL TD SCH (09:58)
[2019-04-17] MEDS: LASIX IV SCH (09:59)
--- NOTE | 2019-04-17 12:25 | Discharge Summary ---
Providers - Providers Date of Admission: 04/08/19 05:29 Attending physician: KAREN SY MD 04/08/19 03:56 Consult to Physician [CONS] Routine Comment: Consulting Provider: JASEN TIWARI Physician Instructions: Reason For Exam: New Pericardial effusion 04/08/19 03:58 Consult to Physician [CONS] Routine Comment: Consulting Provider: QUINTON REN Physician Instructions: Reason For Exam: new diag non small cell lung ca 04/08/19 04:02 Consult to Physician [CONS] Routine Comment: Consulting Provider: SERGO HAIDER Physician Instructions: Reason For Exam: new dimple non small cell lung ca 04/08/19 04:27 Consult to Case Management [CONS] Routine Services Needed at Discharge: Material Mover Notified:: CARMEN Green Physician Instructions: Diagnosis and 03/22 with non-small cell lung carcinoma, patient is self-pay needs consistent with establishing care with oncologist 04/08/19 19:19 Consult to Physician [CONS] Routine Comment: Consulting Provider: EMILY SUBRAMANIAN Physician Instructions: Reason For Exam: lung cancer - SOB [facility] Condition: Stable Hospital course: 68-year-old male who is a former smoker with history of COPD, remote history of tuberculosis, newly diagnosed with non-small cell lung carcinoma (03/2019) presents to [facility] ED with complaints of difficulty with breathing, [place] and cough Review of chart shows that patient was recently diagnosed with non-small cell lung cancer last month and advised to follow-up with Dr. Haider outpatient. Patient states he was unable to do so due to finances. Past History Past Medical History: cancer (lung cancer diagnosed 03/2019), COPD, other (remote history of TB diagnosis 1986, treated for 6 months, patient had negative AFB 4 in March 2019) CTA chest; 1. There is complete atelectasis/collapse of the right lung with abrupt cut off of the right mainstem bronchus which may be due to mucous plug or neoplasm. Bronchoscopy is recommended. 2. Small to moderate right pleural effusion, increased in size. 3. Moderate pericardial effusion, new since the prior. 4. No acute PTE is seen. Acute hypoxic respiratory failure/Right lung collapse/ COPD flare was rx with bipap, then high flow and now weaned to oxygen via NC, home o2 was delivered prior to dc etoh abuse/withdrawal; ciwa protocol, resolved Agitation/anxiety; Ativan as needed Acute metabolic encephalopathy Was due to alcohol withdrawal and his hypoxia, resolved A. fib with RVR, hypercoagulable states Rate control meds per cardiology, improving Right lung effusion Status post thoracentesis on 04/11, 500 mL of fluid was drained, cultures are negative Moderate pericardial effusion- seen on CTA chest 04/07/2019; chest pain Cardiology input appreciated, there is a moderate size pericardial effusion without tamponade not, no further w/o indicated Non-small cell lung carcinoma-newly diagnosed 03/2019 oncologist consult, recommended pall RT SIRS; no evidence of infection at this time Blood cultures negative, right lung fluid culture is negative Remote history of TB- 1986 (AFB 4 negative 03/2019; no further w/o ID) History of tobacco abuse Preventative health counseling performed for 17 minutes Smoking cessation counseling performed for 10 minutes, nicotine patches ordered -surgical services tech consult place due to financial limitations with treatments DVT PPX on Lovenox Critical care time 35 minutes Disposition: DC-01 TO HOME OR SELFCARE Time spent for discharge: 33 min Core Measure Documentation - Palliative Care Palliative Care/ Comfort Measures: Not Applicable - Core Measures Any of the following diagnoses?: none Exam - Physical Exam Narrative exam: General.: no distress HEENT: Moist mucous membranes, extraocular muscles intact, no lymphadenopathy Neck: supple Cardiac: S1-S2 heard Lungs: Severely decreased air entry, dull on right base Abdomen: soft , nontender, nondistended, bowel sounds positive Extremities: no edema clubbing or cyanosis Skin: no rash or lesions Neurologic: no gross focal deficits Psych: calm, and cooperative - Constitutional Vitals: Temp Pulse Resp BP Pulse Ox 98.0 F 92 H 18 140/92 97 04/17/19 07:39 04/17/19 08:00 04/17/19 08:00 04/17/19 07:39 04/17/19 08:05 Plan Follow up with: CAROLYNN PEREZ MD [Primary Care Provider] - 3-5 Days Prescriptions: Temazepam [Restoril] 15 mg PO QHS PRN #7 capsule PRN Reason: Sleep Folic Acid [Folvite] 1 mg PO QDAY #30 tablet Furosemide [Lasix TAB] 20 mg PO QDAY #30 tablet Thiamine [Vitamin B-1] 100 mg PO QDAY #30 tablet
== END 2019-04-17 12:53 | disposition home or self-care (01) | DRG 189 ==
LOC: ED 23:24 → 4A 04-08 05:29 → CC1 04-08 06:44 → IMCU 04-09 01:15 → 2B-ACE 04-13 18:07
PROVIDERS: ADMIT Internal Medicine; ATTEND Internal Medicine
PROC: 5A09357 Assistance with Respiratory Ventilation, Less than 24 Consecutive Hours, Continuous Positive Airway Pressure (ICD-10-PCS; principal; 2019-04-08)
PROC: 4A033R1 Measurement of Arterial Saturation, Peripheral, Percutaneous Approach (ICD-10-PCS; 2019-04-08)
PROC: 5A09357 Assistance with Respiratory Ventilation, Less than 24 Consecutive Hours, Continuous Positive Airway Pressure (ICD-10-PCS; 2019-04-09)
PROC: 5A09357 Assistance with Respiratory Ventilation, Less than 24 Consecutive Hours, Continuous Positive Airway Pressure (ICD-10-PCS; 2019-04-10)
PROC: 5A09357 Assistance with Respiratory Ventilation, Less than 24 Consecutive Hours, Continuous Positive Airway Pressure (ICD-10-PCS; 2019-04-11)
PROC: 0W9930Z Drainage of Right Pleural Cavity with Drainage Device, Percutaneous Approach (ICD-10-PCS; 2019-04-11)
DX: J96.21 Acute and chronic respiratory failure with hypoxia (principal); G93.41 Metabolic encephalopathy; I31.3 Pericardial effusion (noninflammatory); R65.10 Systemic inflammatory response syndrome (SIRS) of non-infectious origin without acute organ dysfunction; C34.81 Malignant neoplasm of overlapping sites of right bronchus and lung; J98.19 Other pulmonary collapse; J44.1 Chronic obstructive pulmonary disease with (acute) exacerbation; F10.239 Alcohol dependence with withdrawal, unspecified; D68.59 Other primary thrombophilia; J90 Pleural effusion, not elsewhere classified; J98.11 Atelectasis; I48.92 Unspecified atrial flutter; R45.1 Restlessness and agitation; F41.9 Anxiety disorder, unspecified; I48.91 Unspecified atrial fibrillation; D72.829 Elevated white blood cell count, unspecified; D64.9 Anemia, unspecified; Z86.11 Personal history of tuberculosis; Z79.899 Other long term (current) drug therapy
CPT/HCPCS: 32555; 36415; 36600; 71045; 71275; 80048; 80053; 82140; 82803; 82962; 83605; 83615; 83735; 83880; 84100; 84160; 84484; 85007; 85025; 85049; 85379; 85610; 85730; 86140; 87040; 87116; 88112; 88305; 88341; 88342; 93005; 93010; 93308; 93321; 93325; 94640; 94660; 94760; 96374; 96375; G0378; J0282; J0456; J0696; J1630; J1650; J1940; J1956; J2060; J2270; J2920; J2930; J7030; J7050; J7060; Q9967

== ENCOUNTER 2019-05-12 17:17 | Inpatient (IN) | payer SELFPAY ==
[2019-05-12] MEDS ORDERED: ATROVENT IH ONE (17:56)
[2019-05-12] MEDS ORDERED: XOPENEX IH ONE (17:56)
--- NOTE | 2019-05-12 18:06 | Emergency Department Report ---
HPI - General Chief Complaint: Dyspnea/Respdistress Time Seen by Provider: 05/12/19 17:47 - HPI HPI: Room 23 The patient is a 68-year-old male presenting with chief complaint of shortness of breath and noisy respirations. The patient has a history of newly diagnosed lung CA and last received radiation therapy today. The patient since the ED for evaluation after noting increased shortness of breath worsens in the supine position and tachycardia. The patient states she is short of breath and has had nausea respirations for the past 4 days. Patient missed her cough is occasional productive sputum but she is uncertain of the color. Patient denies history of fever. Location: [See above] Duration: [See above] Quality: [See above] Severity: [See above] Modifying factors: [see above] Context: [see above] Mode of transportation: [not driving] ED Past Medical Hx - Past Medical History Hx of Cancer: Yes (lungs CA (adenocarcinoma) on xrt) Hx COPD: Yes (SOB at rest) Hx Tuberculosis: Yes (Diagnosed 1986 and was treated for 6 months.) Additional medical history: TB in - Surgical History Past Surgical History?: No - Family History Family history: no significant - Social History Smoking Status: Former Smoker (none 2 months) Substance Use Type: None - Medications Home Medications: Home Medications Medication Instructions Recorded Confirmed Last Taken Type ALBUTEROL Inhaler (OR & NICU) 2 puff IH QID PRN 30 Days #1 pump 04/17/19 Unknown Rx [ProAir HFA Inhaler] Amiodarone [Cordarone 200 MG TAB] 200 mg PO DAILY #30 tablet 04/17/19 Unknown Rx Benzonatate [Tessalon Perles] 200 mg PO Q8HR #30 capsule 04/17/19 Unknown Rx Fluticasone/Salmeterol [Advair 1 puff IH BID #1 blst.w.dev 04/17/19 Unknown Rx 250-50 Diskus] Folic Acid [Folvite] 1 mg PO QDAY #30 tablet 04/17/19 Unknown Rx Furosemide [Lasix] 20 mg PO QDAY #30 tablet 04/17/19 Unknown Rx Ipratropium/Albuterol Sulfate 1 ampul IH TIDRT #120 ampul.neb 04/17/19 Unknown Rx [DUONEB *Not for PRN Use*] Nicotine [Habitrol] 14 mg TD QDAY #30 patch 04/17/19 Unknown Rx Prednisone [predniSONE 10 mg 10 mg PO .TAPER #1 tab.ds.pk 04/17/19 Unknown Rx (6-Day Pack, 21 Tabs)] Temazepam [Restoril] 15 mg PO QHS PRN #7 capsule 04/17/19 Unknown Rx Thiamine [Vitamin B-1] 100 mg PO QDAY #30 tablet 04/17/19 Unknown Rx dilTIAZem [Cardizem] 60 mg PO Q6H #120 tablet 04/17/19 Unknown Rx oxyCODONE /ACETAMINOPHEN [Percocet 1 tab PO Q6H PRN #14 tablet 04/17/19 Unknown Rx 5/325 mg] oxyCODONE /ACETAMINOPHEN [Percocet 1 tab PO Q6H PRN #30 tablet 04/17/19 Unknown Rx 5/325 mg] ED Review of Systems ROS: Stated complaint: DELMY Other details as noted in HPI Constitutional: denies: fever Eyes: denies: eye pain ENT: denies: throat pain Respiratory: cough, shortness of breath Cardiovascular: chest pain Endocrine: no symptoms reported Gastrointestinal: denies: abdominal pain Genitourinary: denies: dysuria Musculoskeletal: denies: back pain Neurological: denies: headache Physical Exam - Physical Exam Physical Exam: GENERAL: The patient is well-developed well-nourished male lying on stretcher not appearing to be in acute distress. [] HEENT: Normocephalic. Atraumatic. Extraocular motions are intact. Patient has moist mucous membranes. NECK: Supple. Trachea midline CHEST/LUNGS: Diminished breath sounds, faint wheezing and right middle lobe. There is no respiratory distress noted. HEART/CARDIOVASCULAR: Regular. There is no tachycardia. There is no gallop rub or murmur. ABDOMEN: Abdomen is soft, nontender. Patient has normal bowel sounds. There is no abdominal distention. SKIN: There is no rash. There is no edema. There is no diaphoresis. NEURO: The patient is awake, alert, and oriented. The patient is cooperative. The patient has normal speech MUSCULOSKELETAL: There is no evidence of acute injury. ED Medical Decision Making - Lab Data Result diagrams: 05/12/19 18:10 05/12/19 18:34 Laboratory Tests 05/12/19 05/12/19 05/12/19 18:10 18:10 18:10 WBC 17.8 H RBC 3.94 Hgb 11.8 Hct 36.5 MCV 93 MCH 30 MCHC 33 RDW 18.4 H Plt Count 579 H Lymph % (Auto) 6.0 L Boundary % (Auto) 6.1 Eos % (Auto) 0.4 Baso % (Auto) 0.3 Lymph # 1.1 L Boundary # 1.1 H Eos # 0.1 Baso # 0.1 Seg Neutrophils % 87.2 H Seg Neutrophils # 15.5 H PT 14.3 INR 1.14 H APTT 32.6 Sodium Potassium Chloride Carbon Dioxide Anion Gap BUN Creatinine Estimated GFR BUN/Creatinine Ratio Glucose Calcium Total Bilirubin AST ALT Alkaline Phosphatase Total Creatine Kinase CK-MB (CK-2) CK-MB (CK-2) Rel Index Troponin T < 0.010 NT-Pro-B Natriuret Pep 878.4 Total Protein Albumin Albumin/Globulin Ratio 05/12/19 18:34 WBC RBC Hgb Hct MCV MCH MCHC RDW Plt Count Lymph % (Auto) Boundary % (Auto) Eos % (Auto) Baso % (Auto) Lymph # Boundary # Eos # Baso # Seg Neutrophils % Seg Neutrophils # PT INR APTT Sodium 140 Potassium 5.2 H Chloride 96.3 L Carbon Dioxide 30 Anion Gap 19 BUN 22 H Creatinine 0.4 L Estimated GFR > 60 BUN/Creatinine Ratio 55 Glucose 91 Calcium 9.8 Total Bilirubin 0.30 AST 34 ALT 26 Alkaline Phosphatase 242 H Total Creatine Kinase 64 CK-MB (CK-2) 7.6 H CK-MB (CK-2) Rel Index 11.8 H Troponin T NT-Pro-B Natriuret Pep Total Protein 7.7 Albumin 2.8 L Albumin/Globulin Ratio 0.6 - EKG Data -: EKG Interpreted by Me EKG shows normal: sinus rhythm Rate: tachycardia (116 bpm) - EKG Data When compared to previous EKG there are: previous EKG unavailable Interpretation: nonspecific ST-T wave vincent (T-wave inversion in lead 3) - Radiology Data Radiology results: report reviewed (chest x-ray), image reviewed (chest x-ray) interpreted by me: Chest [id number] chi out right lung [facility] [address] [place] [address] XRay Report Signed Patient: BOOKER MORAN MR#: [id number] : 1950 Acct:[id number] Age/Sex: 68 / M ADM Date: 05/12/19 Loc: ED Attending Dr: Ordering Physician: LARON SILVA MD Date of Service: 05/12/19 Procedure(s): XR chest 1V ap Accession Number(s): [id number] cc: LARON SILVA MD Fluoro Time In Minutes: CHEST 1 VIEW INDICATION: shortness of breath. COMPARISON: 04/11/2019. FINDINGS: Support devices: None. Heart: Normal. Lungs/Pleura: There is persistent complete opacification of the right hemithorax. Diffuse left lung interstitial opacities persist, these are slightly improved when compared with the prior exam. IMPRESSION: 1. No significant change. Signer Name: Chalrie Ornelas MD Signed: 05/12/2019 6:22 PM Workstation Name: [id number] Transcribed By: SW Dictated By: Charlie Ornelas MD Electronically Authenticated By: Charlie Ornelas MD Signed Date/Time: 05/12/191821 DD/ 19 TD/TT: - Differential Diagnosis lungs CTA, pneumonia, postobstructive pneumonia, pleural effusion, CHF Critical care attestation.: If time is entered above; I have spent that time in minutes in the direct care of this critically ill patient, excluding procedure time. ED Disposition Clinical Impression: Shortness of breath, Atelectasis of right lung, Chest pain, Tachycardia Disposition: OP ADMIT IP TO THIS HOSP Is pt being admited?: Yes Does the pt Need Aspirin: Yes Condition: Fair Instructions: Chest Pain (ED) Time of Disposition: 19:38 (hospitalist paged (Dr Hernandez))
--- NOTE | 2019-05-12 18:26 | XRay Report ---
CHEST 1 VIEW INDICATION: shortness of breath. COMPARISON: 04/11/2019. FINDINGS: Support devices: None. Heart: Normal. Lungs/Pleura: There is persistent complete opacification of the right hemithorax. Diffuse left lung i nterstitial opacities persist, these are slightly improved when compared with the prior exam. IMPRESSION: 1. No significant change. Signer Name: Charlie Ornelas MD Signed: 05/12/2019 6:22 PM Workstation Name: [id number]
[2019-05-12 18:33] LABS: Basophils # (Auto) 0.1 K/mm3 (0.0-0.1); Basophils % (Auto) 0.3 % (0.0-1.8); Eosinophils # (Auto) 0.1 K/mm3 (0.0-0.4); Eosinophils % (Auto) 0.4 % (0.0-4.3); Hematocrit 36.5 % (35.5-45.6); Hemoglobin 11.8 gm/dl (11.8-15.2); Lymphocytes # (Auto) 1.1 K/mm3 (1.2-5.4); Mean Corpuscular HGB Conc 33 % (32-34); Mean Corpuscular Volume 93 fl (84-94); Monocytes # (Auto) 1.1 K/mm3 (0.0-0.8); Monocytes % (Auto) 6.1 % (0.0-7.3); Platelet Count 579 K/mm3 (140-440); Red Blood Count 3.94 M/mm3 (3.65-5.03); Red Cell Distribution Width 18.4 % (13.2-15.2)
[2019-05-12 18:43] LABS: INR 1.14 (0.87-1.13)
[2019-05-12 18:44] LABS: Partial Thromboplastin Time 32.6 Sec. (24.2-36.6)
[2019-05-12 19:10] LABS: Creatine Kinase MB 7.6 ng/mL (0.0-4.0)
[2019-05-12 19:12] LABS: Albumin 2.8 g/dL (3.9-5); BUN/Creatinine Ratio 55; Blood Urea Nitrogen 22 mg/dL (9-20); Calcium 9.8 mg/dL (8.4-10.2); Hemolysis Index 165
[2019-05-12 19:13] LABS: Alanine Aminotransferase 26 units/L (7-56)
[2019-05-12] MEDS ORDERED: ASPIRIN PO ONE (19:38)
[2019-05-12] MEDS ORDERED: VANCOMYCIN 1,000 MG in NACL 0.9% 500 ML 500 ML IV ONE (20:13)
[2019-05-12] MEDS ORDERED: SODIUM CHLORIDE FLUSH SYRINGE 10 ML IV PRN (20:13)
[2019-05-12] MEDS ORDERED: TYLENOL PO PRN (20:13)
[2019-05-12] MEDS ORDERED: ZOFRAN IV PRN (20:13)
--- NOTE | 2019-05-12 20:21 | History and Physical Report ---
History of Present Illness Chief complaint: I cant breathe History of present illness: 68 YO Male with Right Lung Adenocarcinoma, Severe Malnutrition,COPD, TB in 1986 S/P Full course therapy, S/P radiation therapy today. Pt states that he has experienced shortness of breath, fatigue, and progressive weakness over the past 1 week with worsening symptoms over the past 4 days, with concomitant worsening of symptoms after radiation therapy today. Pt was instructed by his Oncologist to seek further care. Pt transported to [facility] via private vehicle. Pt seen and evaluated in ED and found to have Bilateral Pneumonia complicated by SIRS, as well as Lung Maligancy. Pt counseled regarding poor prognosis. Pt requests aggressive medical therapy. Pt admitted to [facility] Unit and initiated on Pneumonia Protocol for Healthcare Associated Pneumonia. Pt denies fever, chills, CP, Palpitations, Trauma, Hemoptysis, Skin Rash, Edema, or recent ill contacts. Prior Admission on 04/08/19 reviewed. All listed medication reconciled at time of admission. 30 minutes additional time dedicated to Advanced care planning, and discussion of goals of care. Pt acknowledges understanding and agreement with care plan. Past History Past Medical History: cancer, COPD, other (Malnutrition) Past Surgical History: No surgical history, Other (Reviewed) Social history: single Family history: hypertension Medications and Allergies Allergies Allergy/AdvReac Type Severity Reaction Status Date / Time No Known Allergies Allergy Verified 05/12/19 17:25 Home Medications Medication Instructions Recorded Confirmed Last Taken Type ALBUTEROL Inhaler (OR & NICU) 2 puff IH QID PRN 30 Days #1 pump 04/17/19 Unknown Rx [ProAir HFA Inhaler] Amiodarone [Cordarone 200 MG TAB] 200 mg PO DAILY #30 tablet 04/17/19 Unknown Rx Benzonatate [Tessalon Perles] 200 mg PO Q8HR #30 capsule 04/17/19 Unknown Rx Fluticasone/Salmeterol [Advair 1 puff IH BID #1 blst.w.dev 04/17/19 Unknown Rx 250-50 Diskus] Folic Acid [Folvite] 1 mg PO QDAY #30 tablet 04/17/19 Unknown Rx Furosemide [Lasix] 20 mg PO QDAY #30 tablet 04/17/19 Unknown Rx Ipratropium/Albuterol Sulfate 1 ampul IH TIDRT #120 ampul.neb 04/17/19 Unknown Rx [DUONEB *Not for PRN Use*] Nicotine [Habitrol] 14 mg TD QDAY #30 patch 04/17/19 Unknown Rx Prednisone [predniSONE 10 mg 10 mg PO .TAPER #1 tab.ds.pk 04/17/19 Unknown Rx (6-Day Pack, 21 Tabs)] Temazepam [Restoril] 15 mg PO QHS PRN #7 capsule 04/17/19 Unknown Rx Thiamine [Vitamin B-1] 100 mg PO QDAY #30 tablet 04/17/19 Unknown Rx dilTIAZem [Cardizem] 60 mg PO Q6H #120 tablet 04/17/19 Unknown Rx oxyCODONE /ACETAMINOPHEN [Percocet 1 tab PO Q6H PRN #14 tablet 04/17/19 Unknown Rx 5/325 mg] oxyCODONE /ACETAMINOPHEN [Percocet 1 tab PO Q6H PRN #30 tablet 04/17/19 Unknown Rx 5/325 mg] Active Meds: Active Medications Acetaminophen (Tylenol) 650 mg PO Q4H PRN PRN Reason: Pain MILD(1-3)/Fever >100.5/BOO Albuterol (Proventil) 2.5 mg IH Q4HRT PRN PRN Reason: Shortness Of Breath Amiodarone HCl (Cordarone) 200 mg PO DAILY FRANCISCO JAVIER Diltiazem HCl (Cardizem) 60 mg PO Q6H FRANCISCO JAVIER Folic Acid (Folvite) 1 mg PO QDAY FRANCISCO JAVIER Furosemide (Lasix) 20 mg PO QDAY FRANCISCO JAVIER Vancomycin HCl 1,000 mg/ (Sodium Chloride) 520 mls @ 333 mls/hr IV ONCE ONE; Protocol Stop: 05/12/19 21:46 Cefepime HCl (Maxipime/Ns 2 Gm/100 Ml) 2 gm in 100 mls @ 200 mls/hr IV Q8HR FRANCISCO JAVIER; Protocol Miscellaneous Medication (Fluticasone/Salmeterol [Advair Diskus 250-50 Mcg]) 1 puff IH BID FRANCISCO JAVIER Nicotine (Habitrol) 14 mg TD QDAY FRANCISCO JAVIER Ondansetron HCl (Zofran) 4 mg IV Q8H PRN PRN Reason: Nausea And Vomiting Oxycodone/Acetaminophen (Percocet 5/325) 1 tab PO Q6H PRN PRN Reason: Pain, Moderate (4-6) Sodium Chloride (Sodium Chloride Flush Syringe 10 Ml) 10 ml IV BID [facility] Sodium Chloride (Sodium Chloride Flush Syringe 10 Ml) 10 ml IV PRN PRN PRN Reason: LINE FLUSH Temazepam (Restoril) 15 mg PO QHS PRN PRN Reason: Sleep Thiamine HCl (Vitamin B-1) 100 mg PO QDAY [facility] Review of Systems Constitutional: weight loss, sweats, night sweats, weakness, no fever Ears, nose, mouth and throat: no ear pain, no decreased hearing, no nasal congestion, no nasal discharge Cardiovascular: shortness of breath, no chest pain, no palpitations, no dyspnea on exertion, no phlebitis Respiratory: cough, cough with sputum, shortness of breath Gastrointestinal: no abdominal pain, no vomiting, no constipation Genitourinary Male: no hematuria, no discharge, no nocturia Rectal: no pain, no incontinence, no discharge Musculoskeletal: no neck pain, no arm numbness/tingling Integumentary: no rash, no redness, no jaundice Neurological: no head injury, no weakness, no tingling Psychiatric: no anxiety, no insomnia, no change in libido Endocrine: no cold intolerance, no excessive thirst, no polyuria Hematologic/Lymphatic: no easy bruising, no lymphadenopathy Allergic/Immunologic: no urticaria, no anaphylaxis, no seasonal allergies Exam - Constitutional Vitals: Temp Pulse Resp BP Pulse Ox 116 H 28 H 122/80 95 05/12/19 19:30 05/12/19 19:30 05/12/19 19:30 05/12/19 19:30 General appearance: Present: mild distress, cachectic - EENT Eyes: Present: PERRL ENT: hearing intact, clear oral mucosa - Neck Neck: Present: supple, normal ROM - Respiratory Respiratory: bilateral: diminished, rhonchi - Cardiovascular Heart Sounds: Present: S1 & S2. Absent: rub, click - Extremities Extremities: pulses symmetrical, No edema Peripheral Pulses: within normal limits - Abdominal General gastrointestinal: Present: soft, non-tender, non-distended, normal bowel sounds Male genitourinary: Present: normal - Musculoskeletal Musculoskeletal: generalized weakness - Psychiatric Psychiatric: appropriate mood/affect, intact judgment & insight Results - Labs CBC & Chem 7: 05/12/19 18:10 05/12/19 18:34 Labs: Abnormal lab results 05/12/19 05/12/19 05/12/19 Range/Units 18:10 18:10 18:34 WBC 17.8 H (4.5-11.0) K/mm3 RDW 18.4 H (13.2-15.2) % Plt Count 579 H (140-440) K/mm3 Lymph % (Auto) 6.0 L (13.4-35.0) % Lymph # 1.1 L (1.2-5.4) K/mm3 [place] # 1.1 H (0.0-0.8) K/mm3 Seg Neutrophils % 87.2 H (40.0-70.0) % Seg Neutrophils # 15.5 H (1.8-7.7) K/mm3 INR 1.14 H (0.87-1.13) Potassium 5.2 H (3.6-5.0) mmol/L Chloride 96.3 L (98-107) mmol/L BUN 22 H (9-20) mg/dL Creatinine 0.4 L (0.8-1.5) mg/dL Alkaline Phosphatase 242 H (35-129) units/L CK-MB (CK-2) 7.6 H (0.0-4.0) ng/mL CK-MB (CK-2) Rel Index 11.8 H (0-4) Albumin 2.8 L (3.9-5) g/dL Assessment and Plan - Patient Problems (1) Pneumonia Current Visit: Yes Status: Acute Qualifiers: Pneumonia type: due to unspecified organism Plan to address problem: HAP: Pneumonia protocol, IV antibiotic therapy, Chest x ray, supplemental oxygen, nebulizer therapy, NINPPV as clinically indicated, pulse oximetry, CBC, CMP, supportive care. (2) Lung malignancy Current Visit: Yes Status: Acute Qualifiers: Laterality: right Plan to address problem: Poor prognosis. S/P Radiation therapy today, supportive care, outpatient oncology F/U care, (3) SIRS (systemic inflammatory response syndrome) Current Visit: Yes Status: Acute Plan to address problem: IV antibiotic therapy, Chest x ray, cbc, cmp, urinalysis, IVF resuscitation therapy (4) Severe malnutrition Current Visit: Yes Status: Acute Plan to address problem: Encourage increased protein intake, dietary supplementation (5) COPD (chronic obstructive pulmonary disease) Current Visit: Yes Status: Acute Qualifiers: Chronic bronchitis type: mixed simple and mucopurulent Plan to address problem: Supplemental oxygen, nebulizer therapy, pulse oximetry, supportive care. (6) Advance care planning Current Visit: Yes Status: Acute Plan to address problem: additional 30 minutes dedicated to care planning. Pt informed of prognosis. Pt declines hospice care and wishes to have aggressive therapy, risks/benefits of XRT discussed. (7) DVT prophylaxis Current Visit: Yes Status: Acute Plan to address problem: SCD to BLE while in bed, Pt ambulatory at this time.
[2019-05-12] MEDS ORDERED: CARDIZEM ONE (20:51)
[2019-05-12] MEDS: CARDIZEM PO SCH (20:55)
[2019-05-12] MEDS: PERCOCET 5/325 PO PRN (20:56)
[2019-05-12] MEDS ORDERED: VANCOMYCIN PHARMACY TO DOSE IV SCH (21:00)
[2019-05-12] MEDS: HABITROL TD SCH (21:56)
[2019-05-12] MEDS ORDERED: NON-FORMULARY (Fluticasone/Salmeterol [Advair Diskus 250-50 Mcg] 1 PUFF) IH SCH (22:00)
[2019-05-12] MEDS: MAXIPIME/NS 2 GM/100 ML 2 GM/100 ML BAG IV SCH (22:02)
[2019-05-12] MEDS: PROVENTIL IH PRN (22:04)
[2019-05-12] MEDS ORDERED: PROVENTIL IH ONE (22:15)
[2019-05-12] MEDS: SODIUM CHLORIDE FLUSH SYRINGE 10 ML IV SCH (23:53)
[2019-05-13] MEDS: CARDIZEM PO SCH ×4 (03:09→21:21)
[2019-05-13] MEDS: PERCOCET 5/325 PO PRN ×4 (03:10→21:21)
[2019-05-13] MEDS: PROVENTIL IH PRN (05:07)
[2019-05-13] MEDS: MAXIPIME/NS 2 GM/100 ML 2 GM/100 ML BAG IV SCH ×4 (06:34→21:21)
[2019-05-13] MEDS ORDERED: HYDROMET PO PRN (07:15)
[2019-05-13] MEDS: PULMICORT IH SCH ×2 (08:00→20:31)
[2019-05-13] MEDS: BROVANA NEBU IH SCH ×2 (08:00→20:31)
--- NOTE | 2019-05-13 08:43 | Progress Note ---
Assessment and Plan Assessment and plan: 68 YO Male with Right Lung Adenocarcinoma, Severe Malnutrition,COPD, TB in 1986 S/P Full course therapy, S/P radiation therapy today. Pt states that he has experienced shortness of breath, fatigue, and progressive weakness over the past 1 week with worsening symptoms over the past 4 days, with concomitant worsening of symptoms after radiation therapy today. Pt was instructed by his Oncologist to seek further care. Pt transported to [facility] via private vehicle. Pt seen and evaluated in ED and found to have Bilateral Pneumonia complicated by SIRS, as well as Lung Maligancy. Pt counseled regarding poor prognosis. Pt requests aggressive medical therapy. Pt admitted to [facility] and initiated on Pneumonia Protocol for Healthcare Associated Pneumonia. Pt denies fever, chills, CP, Palpitations, Trauma, Hemoptysis, Skin Rash, Edema, or recent ill contacts. Prior Admission on 04/08/19 reviewed. All listed medication reconciled at time of admission. 30 minutes additional time dedicated to Advanced care planning, and discussion of goals of care. Chest xray: Lungs/Pleura: There is persistent complete opacification of the right hemithorax. Diffuse left lung interstitial opacities persist, these are slightly improved when compared with the prior exam. Acute Respiratory failure with Hypoxia- O2 sat of 94% ON 4 Liters Complete Opacification of right hemithorax secondary to Non small cell lung ca and loculated fluids Pneumonia likely gram negative Non small cell lung CA- diagnose 03/2019 SIRS with no organ dysfunction Severe Protein calorie malnutrition with cachexia COPD Afib Hyperkalemia Agitation/Anxiety Hx ot ETOH abuse remote history of TB diagnosis 1986, treated for 6 months-egative AFB 4 in March 2019 Plan Continue supportive care Consult Pulmonary and Oncology Transfer to [facility] ok to eat but monitor for aspiration Continue oxygen therapy, nebs patient definately appears to be only amendable to palliative care but will await oncology input. Continue abx Advance care planning * additional 30 minutes dedicated to care planning. Pt informed of prognosis. Pt declines hospice care and wishes to have aggressive therapy, risks/benefits of XRT discussed. DVT prophylaxis Current Visit: Yes Status: Acute Plan to address problem: SCD to BLE while in bed, Pt ambulatory at this time. The high probability of a clinically significant, sudden or life threatening deterioration of the [pulmonary] system(s) required my full and direct attention, intervention and personal management. The aggregate critical care time was [35] minutes. This time is in addition to time spent performing reported procedures but includes the following: [x] Data Review and interpretation [x]xPatient assessment and monitoring of vital signs [x] Documentation [x] Medication orders and management History Interval history: Admitted with shortness of breath. Patient seen and examined this morning, upset about being NPO and does not wish to talk now until fed. Patient appears in moderate respiratory distress. Denies any pain otherwise. Hospitalist Physical - Constitutional Vitals: Temp Pulse Resp BP Pulse Ox 97.8 F 102 H 20 127/79 95 05/13/19 07:12 05/13/19 08:00 05/13/19 08:00 05/13/19 07:12 05/13/19 08:03 General appearance: Present: cachectic, other (moderate distress) - EENT Eyes: Present: PERRL, EOM intact ENT: hearing intact, clear oral mucosa - Neck Neck: Present: supple, normal ROM - Respiratory Respiratory effort: labored, accessory muscle use Respiratory: bilateral: diminished - Extremities Extremities: no ischemia, pulses intact, pulses symmetrical, No edema, Full ROM Peripheral Pulses: within normal limits - Abdominal General gastrointestinal: soft, non-tender, non-distended, normal bowel sounds - Integumentary Integumentary: Present: warm, dry (tattoe) - Psychiatric Psychiatric: appropriate mood/affect - Neurologic Neurologic: CNII-XII intact, moves all extremities - Allied Health Allied health notes reviewed: nursing Results - Labs CBC & Chem 7: 05/12/19 18:10 05/12/19 18:34 Labs: Laboratory Last Values WBC 17.8 K/mm3 (4.5-11.0) H 05/12/19 18:10 RBC 3.94 M/mm3 (3.65-5.03) 05/12/19 18:10 Hgb 11.8 gm/dl (11.8-15.2) 05/12/19 18:10 Hct 36.5 % (35.5-45.6) 05/12/19 18:10 MCV 93 fl (84-94) 05/12/19 18:10 MCH 30 pg (28-32) 05/12/19 18:10 MCHC 33 % (32-34) 05/12/19 18:10 RDW 18.4 % (13.2-15.2) H 05/12/19 18:10 Plt Count 579 K/mm3 (140-440) H 05/12/19 18:10 Lymph % (Auto) 6.0 % (13.4-35.0) L 05/12/19 18:10 [place] % (Auto) 6.1 % (0.0-7.3) 05/12/19 18:10 Eos % (Auto) 0.4 % (0.0-4.3) 05/12/19 18:10 Baso % (Auto) 0.3 % (0.0-1.8) 05/12/19 18:10 Lymph # 1.1 K/mm3 (1.2-5.4) L 05/12/19 18:10 [place] # 1.1 K/mm3 (0.0-0.8) H 05/12/19 18:10 Eos # 0.1 K/mm3 (0.0-0.4) 05/12/19 18:10 Baso # 0.1 K/mm3 (0.0-0.1) 05/12/19 18:10 Seg Neutrophils % 87.2 % (40.0-70.0) H 05/12/19 18:10 Seg Neutrophils # 15.5 K/mm3 (1.8-7.7) H 05/12/19 18:10 PT 14.3 Sec. (12.2-14.9) 05/12/19 18:10 INR 1.14 (0.87-1.13) H 05/12/19 18:10 APTT 32.6 Sec. (24.2-36.6) 05/12/19 18:10 Sodium 140 mmol/L (137-145) 05/12/19 18:34 Potassium 5.2 mmol/L (3.6-5.0) H 05/12/19 18:34 Chloride 96.3 mmol/L (98-107) L 05/12/19 18:34 Carbon Dioxide 30 mmol/L (22-30) 05/12/19 18:34 19 mmol/L 05/12/19 18:34 BUN 22 mg/dL (9-20) H 05/12/19 18:34 0.4 mg/dL (0.8-1.5) L 05/12/19 18:34 Estimated GFR > 60 ml/min 05/12/19 18:34 55 % 05/12/19 18:34 Glucose 91 mg/dL (75-100) 05/12/19 18:34 POC Glucose 178 (70-105) H 05/13/19 08:43 Calcium 9.8 mg/dL (8.4-10.2) 05/12/19 18:34 0.30 mg/dL (0.1-1.2) 05/12/19 18:34 AST 34 units/L (5-40) 05/12/19 18:34 ALT 26 units/L (7-56) 05/12/19 18:34 242 units/L (35-129) H 05/12/19 18:34 64 units/L (55-170) 05/12/19 18:34 CK-MB (CK-2) 7.6 ng/mL (0.0-4.0) H 05/12/19 18:34 CK-MB (CK-2) Rel Index 11.8 (0-4) H 05/12/19 18:34 < 0.010 ng/mL (0.00-0.029) 05/12/19 18:10 NT-Pro-B Natriuret Pep 878.4 pg/mL (0-900) 05/12/19 18:10 7.7 g/dL (6.3-8.2) 05/12/19 18:34 2.8 g/dL (3.9-5) L 05/12/19 18:34 0.6 % 05/12/19 18:34 Active Medications - Current Medications Current Medications: Generic Name Dose Route Start Last Admin Trade Name Freq PRN Reason Stop Dose Admin Acetaminophen 650 mg 05/12/19 20:13 Tylenol PO Q4H PRN Pain MILD(1-3)/Fever >100.5/BOO Albuterol 2.5 mg 05/12/19 20:13 05/13/19 05:07 Proventil IH 2.5 mg Q4HRT PRN Administration Shortness Of Breath Amiodarone HCl 200 mg 05/13/19 10:00 Cordarone PO DAILY FRANC[facility]CO JAVIER Arformoterol Tartrate 15 mcg 05/13/19 08:00 05/13/19 08:00 Brovana Nebu IH 15 mcg Q12HRT FRANCISCO JAVIER Administration Budesonide 0.5 mg 05/13/19 08:00 05/13/19 08:00 Pulmicort IH 0.5 mg Q12HRT FRANCISCO JAVIER Administration Diltiazem HCl 60 mg 05/12/19 21:00 05/13/19 03:09 Cardizem PO 60 mg Q6H FRANCISCO JAVIER Administration Folic Acid 1 mg 05/13/19 10:00 Folvite PO QDAY FRANCISCO JAVIER Furosemide 20 mg 05/13/19 10:00 Lasix PO QDAY FRANCISCO JAVIER Hydrocodone Bit/Homatropine Methylb 10 ml 05/13/19 07:15 Hydromet PO Q6H PRN Cough Cefepime HCl 2 gm in 100 mls @ 200 mls/hr 05/12/19 22:00 05/13/19 06:38 Maxipime/Ns 2 Gm/100 Ml IV 200 mls/hr Q8HR FRANCISCO JAVIER Administration Protocol Vancomycin HCl 1 gm in 250 mls @ 167.007 mls/hr 05/13/19 16:00 Vancomycin/Ns 1 Gm/250 Ml IV Q18H FRANCISCO JAVIER Nicotine 14 mg 05/13/19 10:00 05/12/19 21:56 Habitrol TD 14 mg QDAY FRANCISCO JAVIER Administration Ondansetron HCl 4 mg 05/12/19 20:13 Zofran IV Q8H PRN Nausea And Vomiting Oxycodone/Acetaminophen 1 tab 05/12/19 20:18 05/13/19 03:10 Percocet 5/325 PO 1 tab Q6H PRN Administration Pain, Moderate (4-6) Sodium Chloride 10 ml 05/12/19 22:00 05/12/19 23:53 Sodium Chloride Flush Syringe 10 Ml IV 10 ml BID FRANCISCO JAVIER Administration Sodium Chloride 10 ml 05/12/19 20:13 Sodium Chloride Flush Syringe 10 Ml IV PRN PRN LINE FLUSH Temazepam 15 mg 05/12/19 20:18 Restoril PO QHS PRN Sleep Thiamine HCl 100 mg 05/13/19 10:00 Vitamin B-1 PO QDAY FRANCISCO JAVIER
[2019-05-13] MEDS: CORDARONE PO SCH (09:04)
[2019-05-13] MEDS: HABITROL TD SCH (09:05)
[2019-05-13] MEDS: LASIX PO SCH (09:05)
[2019-05-13] MEDS: VITAMIN B-1 PO SCH (09:05)
[2019-05-13] MEDS: FOLVITE PO SCH (09:06)
[2019-05-13] MEDS: SODIUM CHLORIDE FLUSH SYRINGE 10 ML IV SCH ×2 (09:07→21:22)
--- NOTE | 2019-05-13 09:58 | Consultation ---
History of Present Illness Consult date: 05/13/19 Requesting physician: BREEZY ENAMORADO Reason for consult: COPD, hypoxemia, lung mass, other (Lung cancer) History of present illness: 68 YO Male with Right Lung Adenocarcinoma, Severe Malnutrition, COPD, TB in 1986 S/P Full course therapy, S/P radiation therapy yesterday Patient states that he has experienced shortness of breath, fatigue, and progressive weakness over the past 1 week with worsening symptoms over the past 4 days, with concomitant worsening of symptoms after radiation therapy today. Patient was instructed by his Oncologist to seek further care. Patient transported to [facility] via private vehicle. Patient seen and evaluated in ED Patient admitted to [facility] by hospitalist service and initiated on Pneumonia Protocol for Healthcare Associated Pneumonia. Patient denies fever, chills, Chest, Palpitations, Trauma, Hemoptysis, Skin Rash, Edema, or recent ill contacts. Was called on consult this morning. Patient was seen and examined. Vitals, labs, medications, chart and imaging reviewed. He is in moderate respiratory distress with increase work of breathing. Conversational dyspnea REVIEW OF SYSTEMS Constitutional: denies: fever Eyes: denies: eye pain ENT: denies: throat pain Respiratory: cough, shortness of breath Cardiovascular: chest pain Endocrine: no symptoms reported Gastrointestinal: denies: abdominal pain Genitourinary: denies: dysuria Musculoskeletal: denies: back pain Neurological: denies: headache Past History Past Medical History: cancer, COPD, other (Malnutrition) Past Surgical History: No surgical history, Other (Reviewed) Social history: single Family history: hypertension Medications and Allergies Allergies Allergy/AdvReac Type Severity Reaction Status Date / Time No Known Allergies Allergy Verified 05/12/19 17:25 Home Medications Medication Instructions Recorded Confirmed Last Taken Type ALBUTEROL Inhaler (OR & NICU) 2 puff IH QID PRN 30 Days #1 pump 04/17/19 05/13/19 Unknown Rx [ProAir HFA Inhaler] Amiodarone [Cordarone 200 MG TAB] 200 mg PO DAILY #30 tablet 04/17/19 05/13/19 Unknown Rx Benzonatate [Tessalon Perles] 200 mg PO Q8HR #30 capsule 04/17/19 05/13/19 Unknown Rx Fluticasone/Salmeterol [Advair 1 puff IH BID #1 blst.w.dev 04/17/19 05/13/19 Unknown Rx 250-50 Diskus] Folic Acid [Folvite] 1 mg PO QDAY #30 tablet 04/17/19 05/13/19 Unknown Rx Furosemide [Lasix] 20 mg PO QDAY #30 tablet 04/17/19 05/13/19 Unknown Rx Ipratropium/Albuterol Sulfate 1 ampul IH TIDRT #120 ampul.neb 04/17/19 05/13/19 Unknown Rx [DUONEB *Not for PRN Use*] Nicotine [Habitrol] 14 mg TD QDAY #30 patch 04/17/19 05/13/19 Unknown Rx Prednisone [predniSONE 10 mg 10 mg PO .TAPER #1 tab.ds.pk 04/17/19 05/13/19 Unknown Rx (6-Day Pack, 21 Tabs)] Temazepam [Restoril] 15 mg PO QHS PRN #7 capsule 04/17/19 05/13/19 Unknown Rx Thiamine [Vitamin B-1] 100 mg PO QDAY #30 tablet 04/17/19 05/13/19 Unknown Rx dilTIAZem [Cardizem] 60 mg PO Q6H #120 tablet 04/17/19 05/13/19 Unknown Rx oxyCODONE /ACETAMINOPHEN [Percocet 1 tab PO Q6H PRN #14 tablet 04/17/19 05/13/19 Unknown Rx 5/325 mg] oxyCODONE /ACETAMINOPHEN [Percocet 1 tab PO Q6H PRN #30 tablet 04/17/19 05/13/19 Unknown Rx 5/325 mg] Active Meds: Active Medications Acetaminophen (Tylenol) 650 mg PO Q4H PRN PRN Reason: Pain MILD(1-3)/Fever >100.5/BOO Albuterol (Proventil) 2.5 mg IH Q4HRT PRN PRN Reason: Shortness Of Breath Last Admin: 05/13/19 05:07 Dose: 2.5 mg Documented by: Amiodarone HCl (Cordarone) 200 mg PO DAILY [facility] Last Admin: 05/13/19 09:04 Dose: 200 mg Documented by: Arformoterol Tartrate (Brovana Nebu) 15 mcg IH Q12HRT [facility]AVIER Last Admin: 05/13/19 08:00 Dose: 15 mcg Documented by: Budesonide (Pulmicort) 0.5 mg IH Q12HRT [facility] Last Admin: 05/13/19 08:00 Dose: 0.5 mg Documented by: Diltiazem HCl (Cardizem) 60 mg PO Q6H [facility] Last Admin: 05/13/19 09:00 Dose: 60 mg Documented by: Folic Acid (Folvite) 1 mg PO QDAY [facility] Last Admin: 05/13/19 09:06 Dose: 1 mg Documented by: Furosemide (Lasix) 20 mg PO QDAY [facility] Last Admin: 05/13/19 09:05 Dose: 20 mg Documented by: Hydrocodone Bit/Homatropine Methylb (Hydromet) 10 ml PO Q6H PRN PRN Reason: Cough Cefepime HCl (Maxipime/Ns 2 Gm/100 Ml) 2 gm in 100 mls @ 200 mls/hr IV Q8HR [facility]; Protocol Last Admin: 05/13/19 06:38 Dose: 200 mls/hr Documented by: Vancomycin HCl (Vancomycin/Ns 1 Gm/250 Ml) 1 gm in 250 mls @ 167.007 mls/hr IV Q18H [facility] Nicotine (Habitrol) 14 mg TD QDAY [facility] Last Admin: 05/13/19 09:05 Dose: 14 mg Documented by: Ondansetron HCl (Zofran) 4 mg IV Q8H PRN PRN Reason: Nausea And Vomiting Oxycodone/Acetaminophen (Percocet 5/325) 1 tab PO Q6H PRN PRN Reason: Pain, Moderate (4-6) Last Admin: 05/13/19 09:27 Dose: 1 tab Documented by: Sodium Chloride (Sodium Chloride Flush Syringe 10 Ml) 10 ml IV BID [facility] Last Admin: 05/13/19 09:07 Dose: 10 ml Documented by: Sodium Chloride (Sodium Chloride Flush Syringe 10 Ml) 10 ml IV PRN PRN PRN Reason: LINE FLUSH Temazepam (Restoril) 15 mg PO QHS PRN PRN Reason: Sleep Thiamine HCl (Vitamin B-1) 100 mg PO QDAY [facility] Last Admin: 05/13/19 09:05 Dose: 100 mg Documented by: Review of Systems All systems: negative Physical Examination Vital signs: Vital Signs Pulse Ox 97 05/12/19 17:50 General appearance: other (moerate respiraotry distress, cachexia, chest wall tatoos) Eyes: non-icteric ENT: oropharynx dry Neck: supple, no lymphadenopathy, no JVD Effort: very labored Ascultation: Bilateral: diminished breath sounds (right lung), wheezes Cardiovascular: other (tachycardia, S1,S2) Gastrointestinal: normoactive bowel sounds, soft, non-tender, non-distended Integumentary: normal Extremities: no cyanosis, no edema, pulses normal, no ischemia or petechiae normal mental status, non-focal exam, pupils equal and round, CN II-XII normal, motor strength normal and anxious Results - Laboratory Findings CBC and BMP: 05/13/19 09:36 05/12/19 18:34 PT/INR, D-dimer PT 14.3 Sec. (12.2-14.9) 05/12/19 18:10 INR 1.14 (0.87-1.13) H 05/12/19 18:10 Abnormal lab findings: Abnormal Labs 05/12/19 05/12/19 05/12/19 18:10 18:10 18:34 WBC 17.8 H RDW 18.4 H Plt Count 579 H Lymph % (Auto) 6.0 L Lymph # 1.1 L [place] # 1.1 H Seg Neutrophils % 87.2 H Seg Neutrophils # 15.5 H INR 1.14 H Potassium 5.2 H Chloride 96.3 L BUN 22 H Creatinine 0.4 L POC Glucose Alkaline Phosphatase 242 H CK-MB (CK-2) 7.6 H CK-MB (CK-2) Rel Index 11.8 H Albumin 2.8 L 05/13/19 08:43 WBC RDW Plt Count Lymph % (Auto) Lymph # [place] # Seg Neutrophils % Seg Neutrophils # INR Potassium Chloride BUN Creatinine POC Glucose 178 H Alkaline Phosphatase CK-MB (CK-2) CK-MB (CK-2) Rel Index Albumin - Diagnostic Findings Chest x-ray: image reviewed (Right lung hemiopacification) Assessment and Plan Acute Respiratory failure with Hypoxia- O2 sat of 94% ON 4 Liters Right pleural effusion and atelectasis Non small cell lung CA- diagnosed 03/2019 SIRS with no organ dysfunction Severe Protein calorie malnutrition with cachexia Tobacco use disorder, states he quit 2 weeks ago COPD Afib Hyperkalemia Agitation/Anxiety Hx of ETOH abuse Remote history of TB diagnosis 1986, treated for 6 months-negative AFB 4 in March 2019 Need pleurx drain, the last time he was drained, here was improvement in his respiratory stutus. Patient has tumor infiltration of the right lung upper lobe and bronchus intermedius, no need for further bronchoscopy, need on going radiation therapy Discussed with IR -NIPPV for work of breathing -ABG -Add steroids to therapy -Bronchodilators, mucolytic therapy -Smoking cessation counselling -Aspiration precautions -VTE prophylaxis -Supplemental oxygen therapy keep O2 sats>90% -Patient has adenocarcinoma, needs biomarker testing may be a candidate for immunotherpy which has had some good response -Smoking cessation counselling done at the bedside -CIWA protocol, historically has needed this -Anxiety management -Nutritional supplements, get nutrition consult -Continue empiric antibiotics for now. De-escalate as indicated -Pharmacy consult fro vancomycin dosing -Monitor renal function, hemodynamics and electrolyte profile closely while on diuretic therapy CONDITION: CRITICAL PROGNOSIS: GUARDED CODE STATUS: FULL CODE The high probability of a clinically significant, sudden or life threatening deterioration of the [pulmonary] system(s) required my full and direct attention, intervention and personal management. The aggregate critical care time was [35] minutes. This time is in addition to time spent performing reported procedures but includes the following: [x] Data Review and interpretation [x]xPatient assessment and monitoring of vital signs [x] Documentation [x] Medication orders and management
[2019-05-13 10:05] LABS: Basophils % (Auto) 0.1 % (0.0-1.8); Eosinophils # (Auto) 0.1 K/mm3 (0.0-0.4); Eosinophils % (Auto) 0.3 % (0.0-4.3); Hematocrit 34.8 % (35.5-45.6); Hemoglobin 10.8 gm/dl (11.8-15.2); Lymphocytes # (Auto) 0.6 K/mm3 (1.2-5.4); Lymphocytes % (Auto) 3.4 % (13.4-35.0); Mean Corpuscular HGB Conc 31 % (32-34); Mean Corpuscular Volume 96 fl (84-94); Monocytes # (Auto) 1.4 K/mm3 (0.0-0.8); Monocytes % (Auto) 7.4 % (0.0-7.3); Platelet Count 463 K/mm3 (140-440); Red Blood Count 3.62 M/mm3 (3.65-5.03)
--- NOTE | 2019-05-13 11:58 | Event Note ---
Date: 05/13/19 [id number]
--- NOTE | 2019-05-13 12:43 | Consultation ---
History of Present Illness - Reason for Consult Consult date: 05/13/19 malignant right pleural effusion - History of Present Illness Patient with a history of newly diagnosed right-sided lung cancer with compressive atelectasis of the entire right lung. He develops recurrent malignant right pleural effusions. On recent thoracentesis, 500 mL's of bloody serous fluid was aspirated with subjective improvement in patient's respiratory status. Patient is currently resting comfortably with minimal shortness of breath. Past History Past Medical History: cancer, COPD, other (Malnutrition) Past Surgical History: No surgical history, Other (Reviewed) Social history: single Family history: hypertension Medications and Allergies Allergies Allergy/AdvReac Type Severity Reaction Status Date / Time No Known Allergies Allergy Verified 05/12/19 17:25 Home Medications Medication Instructions Recorded Confirmed Last Taken Type ALBUTEROL Inhaler (OR & NICU) 2 puff IH QID PRN 30 Days #1 pump 04/17/19 05/13/19 Unknown Rx [ProAir HFA Inhaler] Amiodarone [Cordarone 200 MG TAB] 200 mg PO DAILY #30 tablet 04/17/19 05/13/19 Unknown Rx Benzonatate [Tessalon Perles] 200 mg PO Q8HR #30 capsule 04/17/19 05/13/19 Unknown Rx Fluticasone/Salmeterol [Advair 1 puff IH BID #1 blst.w.dev 04/17/19 05/13/19 Unknown Rx 250-50 Diskus] Folic Acid [Folvite] 1 mg PO QDAY #30 tablet 04/17/19 05/13/19 Unknown Rx Furosemide [Lasix] 20 mg PO QDAY #30 tablet 04/17/19 05/13/19 Unknown Rx Ipratropium/Albuterol Sulfate 1 ampul IH TIDRT #120 ampul.neb 04/17/19 05/13/19 Unknown Rx [DUONEB *Not for PRN Use*] Nicotine [Habitrol] 14 mg TD QDAY #30 patch 04/17/19 05/13/19 Unknown Rx Prednisone [predniSONE 10 mg 10 mg PO .TAPER #1 tab.ds.pk 04/17/19 05/13/19 Unknown Rx (6-Day Pack, 21 Tabs)] Temazepam [Restoril] 15 mg PO QHS PRN #7 capsule 04/17/19 05/13/19 Unknown Rx Thiamine [Vitamin B-1] 100 mg PO QDAY #30 tablet 04/17/19 05/13/19 Unknown Rx dilTIAZem [Cardizem] 60 mg PO Q6H #120 tablet 04/17/19 05/13/19 Unknown Rx oxyCODONE /ACETAMINOPHEN [Percocet 1 tab PO Q6H PRN #14 tablet 04/17/19 05/13/19 Unknown Rx 5/325 mg] oxyCODONE /ACETAMINOPHEN [Percocet 1 tab PO Q6H PRN #30 tablet 04/17/19 05/13/19 Unknown Rx 5/325 mg] Active Meds: Active Medications Acetaminophen (Tylenol) 650 mg PO Q4H PRN PRN Reason: Pain MILD(1-3)/Fever >100.5/BOO Albuterol (Proventil) 2.5 mg IH Q4HRT PRN PRN Reason: Shortness Of Breath Last Admin: 05/13/19 05:07 Dose: 2.5 mg Documented by: Amiodarone HCl (Cordarone) 200 mg PO DAILY [facility] Last Admin: 05/13/19 09:04 Dose: 200 mg Documented by: Arformoterol Tartrate (Brovana Nebu) 15 mcg IH Q12HRT [facility] Last Admin: 05/13/19 08:00 Dose: 15 mcg Documented by: Budesonide (Pulmicort) 0.5 mg IH Q12HRT [facility] Last Admin: 05/13/19 08:00 Dose: 0.5 mg Documented by: Diltiazem HCl (Cardizem) 60 mg PO Q6H [facility] Last Admin: 05/13/19 09:00 Dose: 60 mg Documented by: Folic Acid (Folvite) 1 mg PO QDAY [facility] Last Admin: 05/13/19 09:06 Dose: 1 mg Documented by: Furosemide (Lasix) 20 mg PO QDAY [facility] Last Admin: 05/13/19 09:05 Dose: 20 mg Documented by: Hydrocodone Bit/Homatropine Methylb (Hydromet) 10 ml PO Q6H PRN PRN Reason: Cough Cefepime HCl (Maxipime/Ns 2 Gm/100 Ml) 2 gm in 100 mls @ 200 mls/hr IV Q8HR [facility]; Protocol Last Admin: 05/13/19 06:38 Dose: 200 mls/hr Documented by: Vancomycin HCl (Vancomycin/Ns 1 Gm/250 Ml) 1 gm in 250 mls @ 167.007 mls/hr IV Q18H [facility] Methylprednisolone Sodium Succinate (Solu-Medrol) 40 mg IV Q8HR [facility] Nicotine (Habitrol) 14 mg TD QDAY [facility] Last Admin: 05/13/19 09:05 Dose: 14 mg Documented by: Ondansetron HCl (Zofran) 4 mg IV Q8H PRN PRN Reason: Nausea And Vomiting Oxycodone/Acetaminophen (Percocet 5/325) 1 tab PO Q6H PRN PRN Reason: Pain, Moderate (4-6) Last Admin: 05/13/19 09:27 Dose: 1 tab Documented by: Sodium Chloride (Sodium Chloride Flush Syringe 10 Ml) 10 ml IV BID [facility] Last Admin: 05/13/19 09:07 Dose: 10 ml Documented by: Sodium Chloride (Sodium Chloride Flush Syringe 10 Ml) 10 ml IV PRN PRN PRN Reason: LINE FLUSH Temazepam (Restoril) 15 mg PO QHS PRN PRN Reason: Sleep Thiamine HCl (Vitamin B-1) 100 mg PO QDAY [facility] Last Admin: 05/13/19 09:05 Dose: 100 mg Documented by: Review of Systems All systems: negative Exam - Constitutional Vitals: Temp Pulse Resp BP Pulse Ox 97.8 F 98 H 20 129/84 95 05/13/19 07:12 05/13/19 09:00 05/13/19 08:00 05/13/19 09:00 05/13/19 08:03 General appearance: Present: no acute distress - EENT Eyes: Present: EOM intact ENT: hearing intact - Neck Neck: Present: supple, normal ROM - Respiratory Respiratory effort: normal - Abdominal General gastrointestinal: Present: deferred Male genitourinary: Present: deferred - Rectal Rectal Exam: deferred - Psychiatric Psychiatric: appropriate mood/affect, cooperative Results - Labs CBC & Chem 7: 05/13/19 09:36 05/12/19 18:34 Labs: Abnormal lab results 05/12/19 05/12/19 05/12/19 Range/Units 18:10 18:10 18:34 WBC 17.8 H (4.5-11.0) K/mm3 RBC (3.65-5.03) M/mm3 Hgb (11.8-15.2) gm/dl Hct (35.5-45.6) % MCV (84-94) fl MCHC (32-34) % RDW 18.4 H (13.2-15.2) % Plt Count 579 H (140-440) K/mm3 Lymph % (Auto) 6.0 L (13.4-35.0) % [place] % (Auto) (0.0-7.3) % Lymph # 1.1 L (1.2-5.4) K/mm3 [place] # 1.1 H (0.0-0.8) K/mm3 Seg Neutrophils % 87.2 H (40.0-70.0) % Seg Neutrophils # 15.5 H (1.8-7.7) K/mm3 INR 1.14 H (0.87-1.13) POC ABG pH (7.35-7.45) POC ABG pCO2 (35-45) POC ABG pO2 (80-105) Potassium 5.2 H (3.6-5.0) mmol/L Chloride 96.3 L (98-107) mmol/L BUN 22 H (9-20) mg/dL Creatinine 0.4 L (0.8-1.5) mg/dL POC Glucose (70-105) Alkaline Phosphatase 242 H (35-129) units/L CK-MB (CK-2) 7.6 H (0.0-4.0) ng/mL CK-MB (CK-2) Rel Index 11.8 H (0-4) Albumin 2.8 L (3.9-5) g/dL 05/13/19 05/13/19 05/13/19 Range/Units 08:43 09:36 11:04 WBC 18.9 H (4.5-11.0) K/mm3 RBC 3.62 L (3.65-5.03) M/mm3 Hgb 10.8 L (11.8-15.2) gm/dl Hct 34.8 L (35.5-45.6) % MCV 96 H (84-94) fl MCHC 31 L (32-34) % RDW 19.0 H (13.2-15.2) % Plt Count 463 H (140-440) K/mm3 Lymph % (Auto) 3.4 L (13.4-35.0) % [place] % (Auto) 7.4 H (0.0-7.3) % Lymph # 0.6 L (1.2-5.4) K/mm3 [place] # 1.4 H (0.0-0.8) K/mm3 Seg Neutrophils % 88.8 H (40.0-70.0) % Seg Neutrophils # 16.8 H (1.8-7.7) K/mm3 INR (0.87-1.13) POC ABG pH 7.322 L (7.35-7.45) POC ABG pCO2 55.6 H (35-45) POC ABG pO2 68 L (80-105) Potassium (3.6-5.0) mmol/L Chloride (98-107) mmol/L BUN (9-20) mg/dL Creatinine (0.8-1.5) mg/dL POC Glucose 178 H (70-105) Alkaline Phosphatase (35-129) units/L CK-MB (CK-2) (0.0-4.0) ng/mL CK-MB (CK-2) Rel Index (0-4) Albumin (3.9-5) g/dL - Imaging and Cardiology Chest x-ray: report reviewed, image reviewed CT scan - chest: report reviewed, image reviewed Assessment and Plan Patient will be scheduled for placement of a tunneled pleural catheter on Wednesday to allow intermittent fluid drainage. It is unlikely that until the patient's tumor shrinks with appropriate reduction in his endobronchial compression that the lung will fully reexpand however, following the patient's most recent thoracentesis, there was some mediastinal shift with improvement in aeration of the contralateral lung.
[2019-05-13] MEDS: SOLU-Medrol IV SCH ×2 (14:16→21:21)
[2019-05-13] MEDS: VANCOMYCIN/NS 1 GM/250 ML 1 GM/250 ML BAG IV SCH (16:26)
[2019-05-13] MEDS: RESTORIL PO PRN (21:22)
[2019-05-13 23:52] LABS: Alanine Aminotransferase 18 units/L (7-56); Albumin 2.4 g/dL (3.9-5); BUN/Creatinine Ratio 48; Blood Urea Nitrogen 24 mg/dL (9-20); Calcium 9.1 mg/dL (8.4-10.2); Hemolysis Index 3
[2019-05-14] MEDS: CARDIZEM PO SCH ×4 (03:11→20:31)
[2019-05-14] MEDS: PERCOCET 5/325 PO PRN ×4 (03:12→21:20)
[2019-05-14] MEDS: PROVENTIL IH PRN (03:28)
[2019-05-14] MEDS: SOLU-Medrol IV SCH ×3 (06:11→21:21)
[2019-05-14] MEDS: MAXIPIME/NS 2 GM/100 ML 2 GM/100 ML BAG IV SCH ×3 (06:11→21:18)
[2019-05-14] MEDS: PULMICORT IH SCH ×2 (07:18→19:43)
[2019-05-14] MEDS: BROVANA NEBU IH SCH ×2 (07:19→19:43)
--- NOTE | 2019-05-14 08:40 | Progress Note ---
Assessment and Plan Assessment and plan: 68 YO Male with Right Lung Adenocarcinoma, Severe Malnutrition,COPD, TB in 1986 S/P Full course therapy, S/P radiation therapy today. Pt states that he has experienced shortness of breath, fatigue, and progressive weakness over the past 1 week with worsening symptoms over the past 4 days, with concomitant worsening of symptoms after radiation therapy today. Pt was instructed by his Oncologist to seek further care. Pt transported to [facility] via private vehicle. Pt seen and evaluated in ED and found to have Bilateral Pneumonia complicated by SIRS, as well as Lung Maligancy. Pt counseled regarding poor prognosis. Pt requests aggressive medical therapy. Pt admitted to [facility] and initiated on Pneumonia Protocol for Healthcare Associated Pneumonia. Pt denies fever, chills, CP, Palpitations, Trauma, Hemoptysis, Skin Rash, Edema, or recent ill contacts. Prior Admission on 04/08/19 reviewed. All listed medication reconciled at time of admission. 30 minutes additional time dedicated to Advanced care planning, and discussion of goals of care. Chest xray: Lungs/Pleura: There is persistent complete opacification of the right hemithorax. Diffuse left lung interstitial opacities persist, these are slightly improved when compared with the prior exam. Acute Respiratory failure with Hypoxia- Now on venturi mask Complete Opacification of right hemithorax secondary to Non small cell lung ca and loculated fluids Pneumonia likely gram negative Non small cell lung CA- diagnose 03/2019 SIRS with no organ dysfunction Severe Protein calorie malnutrition with cachexia COPD Afib Hyperkalemia Agitation/Anxiety Hx ot ETOH abuse remote history of TB diagnosis 1986, treated for 6 months-egative AFB 4 in March 2019 Plan Continue supportive care Consult Pulmonary and Oncology- INPUT NOTED IR input noted * "Patient will be scheduled for placement of a tunneled pleural catheter on Wednesday to allow intermittent fluid drainage. It is unlikely that until the patient's tumor shrinks with appropriate reduction in his endobronchial compression that the lung will fully reexpand however, following the patient's most recent thoracentesis, there was some mediastinal shift with improvement in aeration of the contralateral lung." * Patient aware of planned procedure and will order INR check Continue IMCU care, patient with rising WBC, Refusing some labs and also still with shortness of breath with minimal exertion ok to eat but monitor for aspiration Continue oxygen therapy, nebs patient definitely appears to be only amendable to palliative care but will await oncology input. Continue abx Advance care planning * additional 30 minutes dedicated to care planning. Pt informed of prognosis. Pt declines hospice care and wishes to have aggressive therapy, risks/benefits of XRT discussed. DVT prophylaxis Current Visit: Yes Status: Acute Plan to address problem: SCD to BLE while in bed, Pt ambulatory at this time. History Interval history: Admitted with shortness of breath. Patient seen and examined this morning, still with conversational dyspnea, now on ventimask. No new complaints overnight. Staff reports he intermittently refuses labs. Hospitalist Physical - Physical exam Narrative exam: General appearance: Present: cachectic, other (moderate distress)-VENTIMASK ON - EENT Eyes: Present: PERRL, EOM intact ENT: hearing intact, clear oral mucosa - Neck Neck: Present: supple, normal ROM - Respiratory Respiratory effort: labored, accessory muscle use Respiratory: bilateral: diminished - Extremities Extremities: no ischemia, pulses intact, pulses symmetrical, No edema, Full ROM Peripheral Pulses: within normal limits - Abdominal General gastrointestinal: soft, non-tender, non-distended, normal bowel sounds - Integumentary Integumentary: Present: warm, dry (tattoe) - Psychiatric Psychiatric: appropriate mood/affect - Neurologic Neurologic: CNII-XII intact, moves all extremities - Allied Health Allied health notes reviewed: nursing - Constitutional Vitals: Temp Pulse Resp BP Pulse Ox 97.5 F L 90 23 121/73 93 05/14/19 04:10 05/14/19 08:00 05/14/19 08:00 05/14/19 05:11 05/14/19 08:00 General appearance: Present: no acute distress Results - Labs CBC & Chem 7: 05/13/19 09:36 05/13/19 23:15 Labs: Laboratory Last Values WBC 18.9 K/mm3 (4.5-11.0) H 05/13/19 09:36 RBC 3.62 M/mm3 (3.65-5.03) L 05/13/19 09:36 Hgb 10.8 gm/dl (11.8-15.2) L 05/13/19 09:36 Hct 34.8 % (35.5-45.6) L 05/13/19 09:36 MCV 96 fl (84-94) H 05/13/19 09:36 MCH 30 pg (28-32) 05/13/19 09:36 MCHC 31 % (32-34) L 05/13/19 09:36 RDW 19.0 % (13.2-15.2) H 05/13/19 09:36 Plt Count 463 K/mm3 (140-440) H 05/13/19 09:36 Lymph % (Auto) 3.4 % (13.4-35.0) L 05/13/19 09:36 Bee % (Auto) 7.4 % (0.0-7.3) H 05/13/19 09:36 Eos % (Auto) 0.3 % (0.0-4.3) 05/13/19 09:36 Baso % (Auto) 0.1 % (0.0-1.8) 05/13/19 09:36 Lymph # 0.6 K/mm3 (1.2-5.4) L 05/13/19 09:36 Bee # 1.4 K/mm3 (0.0-0.8) H 05/13/19 09:36 Eos # 0.1 K/mm3 (0.0-0.4) 05/13/19 09:36 Baso # 0.0 K/mm3 (0.0-0.1) 05/13/19 09:36 Seg Neutrophils % 88.8 % (40.0-70.0) H 05/13/19 09:36 Seg Neutrophils # 16.8 K/mm3 (1.8-7.7) H 05/13/19 09:36 PT 14.3 Sec. (12.2-14.9) 05/12/19 18:10 INR 1.14 (0.87-1.13) H 05/12/19 18:10 APTT 32.6 Sec. (24.2-36.6) 05/12/19 18:10 POC ABG pH 7.322 (7.35-7.45) L 05/13/19 11:04 POC ABG pCO2 55.6 (35-45) H 05/13/19 11:04 POC ABG pO2 68 (80-105) L 05/13/19 11:04 POC ABG HCO3 28.8 (22-26 mml/L) 05/13/19 11:04 POC ABG Total CO2 30 (23-27mmol/L) 05/13/19 11:04 POC ABG O2 Sat 91 05/13/19 11:04 POC ABG Base Excess 3 ((-2) - (+3)mmol/L) 05/13/19 11:04 32 % 05/13/19 11:04 Sodium 138 mmol/L (137-145) 05/13/19 23:15 Potassium 4.9 mmol/L (3.6-5.0) 05/13/19 23:15 Chloride 97.7 mmol/L (98-107) L 05/13/19 23:15 Carbon Dioxide 30 mmol/L (22-30) 05/13/19 23:15 15 mmol/L 05/13/19 23:15 BUN 24 mg/dL (9-20) H 05/13/19 23:15 0.5 mg/dL (0.8-1.5) L 05/13/19 23:15 Estimated GFR > 60 ml/min 05/13/19 23:15 48 % 05/13/19 23:15 Glucose 206 mg/dL (75-100) H 05/13/19 23:15 POC Glucose 178 (70-105) H 05/13/19 08:43 Calcium 9.1 mg/dL (8.4-10.2) 05/13/19 23:15 0.30 mg/dL (0.1-1.2) 05/13/19 23:15 AST 14 units/L (5-40) 05/13/19 23:15 ALT 18 units/L (7-56) 05/13/19 23:15 178 units/L (35-129) H 05/13/19 23:15 64 units/L (55-170) 05/12/19 18:34 CK-MB (CK-2) 7.6 ng/mL (0.0-4.0) H 05/12/19 18:34 CK-MB (CK-2) Rel Index 11.8 (0-4) H 05/12/19 18:34 < 0.010 ng/mL (0.00-0.029) 05/12/19 18:10 NT-Pro-B Natriuret Pep 878.4 pg/mL (0-900) 05/12/19 18:10 7.6 g/dL (6.3-8.2) 05/13/19 23:15 2.4 g/dL (3.9-5) L 05/13/19 23:15 0.5 % 05/13/19 23:15 Active Medications - Current Medications Current Medications: Generic Name Dose Route Start Last Admin Trade Name Freq PRN Reason Stop Dose Admin Acetaminophen 650 mg 05/12/19 20:13 05/14/19 06:10 Tylenol PO 650 mg Q4H PRN Administration Pain MILD(1-3)/Fever >100.5/BOO Albuterol 2.5 mg 05/12/19 20:13 05/14/19 03:28 Proventil IH 2.5 mg Q4HRT PRN Administration Shortness Of Breath Amiodarone HCl 200 mg 05/13/19 10:00 05/13/19 09:04 Cordarone PO 200 mg DAILY FRANCISCO JAVIER Administration Arformoterol Tartrate 15 mcg 05/13/19 08:00 05/14/19 07:19 Brovana Nebu IH 15 mcg Q12HRT FRANCISCO JAVIER Administration Budesonide 0.5 mg 05/13/19 08:00 05/14/19 07:18 Pulmicort IH 0.5 mg Q12HRT FRANCISCO JAVIER Administration Diltiazem HCl 60 mg 05/12/19 21:00 05/14/19 03:11 Cardizem PO 60 mg Q6H FRANCISCO JAVIER Administration Enoxaparin Sodium 40 mg 05/14/19 10:00 Lovenox SUB-Q QDAY@1000 FRANCISCO JAVIER Folic Acid 1 mg 05/13/19 10:00 05/13/19 09:06 Folvite PO 1 mg QDAY FRANCISCO JAVIER Administration Furosemide 20 mg 05/13/19 10:00 05/13/19 09:05 Lasix PO 20 mg QDAY FRANCISCO JAVIER Administration Hydrocodone Bit/Homatropine Methylb 10 ml 05/13/19 07:15 Hydromet PO Q6H PRN Cough Cefepime HCl 2 gm in 100 mls @ 200 mls/hr 05/12/19 22:00 05/14/19 06:11 Maxipime/Ns 2 Gm/100 Ml IV 200 mls/hr Q8HR FRANCISCO JAVIER Administration Protocol Vancomycin HCl 1 gm in 250 mls @ 167.007 mls/hr 05/13/19 16:00 05/13/19 16:26 Vancomycin/Ns 1 Gm/250 Ml IV 167.007 mls/hr Q18H FRANCISCO JAVIER Administration Methylprednisolone Sodium Succinate 40 mg 05/13/19 14:00 05/14/19 06:11 Solu-Medrol IV 40 mg Q8HR FRANCISCO JAVIER Administration Nicotine 14 mg 05/13/19 10:00 05/13/19 09:05 Habitrol TD 14 mg QDAY FRANCISCO JAVIER Administration Ondansetron HCl 4 mg 05/12/19 20:13 Zofran IV Q8H PRN Nausea And Vomiting Oxycodone/Acetaminophen 1 tab 05/12/19 20:18 05/14/19 03:12 Percocet 5/325 PO 1 tab Q6H PRN Administration Pain, Moderate (4-6) Sodium Chloride 10 ml 05/12/19 22:00 05/13/19 21:22 Sodium Chloride Flush Syringe 10 Ml IV 10 ml BID FRANCISCO JAVIER Administration Sodium Chloride 10 ml 05/12/19 20:13 Sodium Chloride Flush Syringe 10 Ml IV PRN PRN LINE FLUSH Temazepam 15 mg 05/12/19 20:18 05/13/19 21:22 Restoril PO 15 mg QHS PRN Administration Sleep Thiamine HCl 100 mg 05/13/19 10:00 05/13/19 09:05 Vitamin B-1 PO 100 mg QDAY FRANCISCO JAVIER Administration
[2019-05-14] MEDS: LOVENOX SUB-Q SCH (09:28)
[2019-05-14] MEDS: CORDARONE PO SCH (09:28)
[2019-05-14] MEDS: VITAMIN B-1 PO SCH (09:28)
[2019-05-14] MEDS: LASIX PO SCH (09:28)
[2019-05-14] MEDS: FOLVITE PO SCH (09:28)
[2019-05-14] MEDS: HABITROL TD SCH (09:29)
[2019-05-14] MEDS: SODIUM CHLORIDE FLUSH SYRINGE 10 ML IV SCH ×2 (09:37→21:23)
--- NOTE | 2019-05-14 12:20 | Progress Note ---
Assessment and Plan Acute Respiratory failure with Hypoxia- O2 sat of 94% ON 4 Liters Right pleural effusion and atelectasis Non small cell lung CA- diagnosed 03/2019 SIRS with no organ dysfunction Severe Protein calorie malnutrition with cachexia Tobacco use disorder, states he quit 2 weeks ago COPD Afib Hyperkalemia Agitation/Anxiety Hx of ETOH abuse Remote history of TB diagnosis 1986, treated for 6 months-negative AFB 4 in March 2019 -Hold VTE prophylaxis and plan for indwelling pleural drain placement tomorrow -Continue steroids, start taper in the morning Patient states the right lung is , why the thoracentesis. I explained in details that it is for symptom relief. If he has an indwelling drain he can periodically drain it himself based on his symptoms. Hopefully he will soon have a response to radiation therapy. Need pleurx drain, the last time he was drained, there was improvement in his respiratory status. Patient has tumor infiltration of the right lung upper lobe and bronchus intermedius, no need for further bronchoscopy, need on going radiation therapy Discussed with IR -NIPPV for work of breathing as needed -ABG prn -Bronchodilators, mucolytic therapy -Aspiration precautions -VTE prophylaxis -Supplemental oxygen therapy keep O2 sats>90% -Patient has adenocarcinoma, needs biomarker testing may be a candidate for immunotherapy which has had some good response -Smoking cessation counselling done at the bedside -[facility] protocol, historically has needed this -Anxiety management -Nutritional supplements, get nutrition consult -Continue empiric antibiotics for now. De-escalate as indicated -Monitor renal function, hemodynamics and electrolyte profile closely while on diuretic therapy CONDITION: CRITICAL PROGNOSIS: GUARDED CODE STATUS: FULL CODE The high probability of a clinically significant, sudden or life threatening deterioration of the [pulmonary] system(s) required my full and direct attention, intervention and personal management. The aggregate critical care time was [31] minutes. This time is in addition to time spent performing reported procedures but includes the following: [x] Data Review and interpretation [x] Patient assessment and monitoring of vital signs [x] Documentation [x] Medication orders and management Subjective Date of service: 05/14/19 Interval history: Patient is seen today for: acute on chronic hypoxic respiratory failure; right recurrent malignant pleural effusion; stage 4 [place] lung Seen and examined at bedside; 24hour events reviewed; nursing and respiratory care staff consulted; no adverse overnight events reported to me; Mild respiratory distress on venturi mask at 40%, no fevers, no vomiting. Vitals, labs, medications, chart reviewed. Objective Vital Signs - 12hr 05/14/19 05/14/19 05/14/19 00:21 00:31 00:41 Temperature Pulse Rate 88 88 89 Pulse Rate [ Anterior Bilateral] Pulse Rate [ From Monitor] Respiratory 20 17 25 H Rate Respiratory Rate [Anterior Bilateral] Blood Pressure 135/96 135/96 135/96 O2 Sat by Pulse 91 90 90 Oximetry 05/14/19 05/14/19 05/14/19 00:51 01:00 01:11 Temperature Pulse Rate 92 H 91 H 91 H Pulse Rate [ Anterior Bilateral] Pulse Rate [ From Monitor] Respiratory 21 10 L 22 Rate Respiratory Rate [Anterior Bilateral] Blood Pressure 135/96 131/78 131/78 O2 Sat by Pulse 90 92 91 Oximetry 05/14/19 05/14/19 05/14/19 01:21 01:31 01:41 Temperature Pulse Rate 90 91 H 88 Pulse Rate [ Anterior Bilateral] Pulse Rate [ From Monitor] Respiratory 17 20 21 Rate Respiratory Rate [Anterior Bilateral] Blood Pressure 131/78 131/78 131/78 O2 Sat by Pulse 89 91 89 Oximetry 05/14/19 05/14/19 05/14/19 01:51 02:00 02:11 Temperature Pulse Rate 88 91 H 94 H Pulse Rate [ Anterior Bilateral] Pulse Rate [ From Monitor] Respiratory 20 21 27 H Rate Respiratory Rate [Anterior Bilateral] Blood Pressure 131/78 138/85 138/85 O2 Sat by Pulse 89 90 89 Oximetry 05/14/19 05/14/19 05/14/19 02:21 02:31 02:41 Temperature Pulse Rate 93 H 90 89 Pulse Rate [ Anterior Bilateral] Pulse Rate [ From Monitor] Respiratory 24 19 19 Rate Respiratory Rate [Anterior Bilateral] Blood Pressure 138/85 138/85 138/85 O2 Sat by Pulse 92 92 90 Oximetry 05/14/19 05/14/19 05/14/19 02:51 03:00 03:11 Temperature Pulse Rate 90 97 H 94 H Pulse Rate [ Anterior Bilateral] Pulse Rate [ From Monitor] Respiratory 21 22 25 H Rate Respiratory Rate [Anterior Bilateral] Blood Pressure 138/85 145/91 145/91 O2 Sat by Pulse 89 89 92 Oximetry 08/11/19 08/11/19 08/11/19 03:21 03:28 03:31 Temperature Pulse Rate 100 H 98 H Pulse Rate [ 116 H Anterior Bilateral] Pulse Rate [ From Monitor] Respiratory 31 H 32 H Rate Respiratory 24 Rate [Anterior Bilateral] Blood Pressure 145/91 145/91 O2 Sat by Pulse 87 99 Oximetry 05/14/19 05/14/19 05/14/19 03:41 03:51 04:00 Temperature Pulse Rate 98 H 95 H 92 H Pulse Rate [ Anterior Bilateral] Pulse Rate [ 96 H From Monitor] Respiratory 29 H 28 H 32 H Rate Respiratory Rate [Anterior Bilateral] Blood Pressure 145/91 145/91 140/82 O2 Sat by Pulse 94 91 90 Oximetry 05/14/19 05/14/19 05/14/19 04:10 04:11 04:21 Temperature 97.5 F L Pulse Rate 98 H 96 H Pulse Rate [ Anterior Bilateral] Pulse Rate [ From Monitor] Respiratory 30 H 28 H Rate Respiratory Rate [Anterior Bilateral] Blood Pressure 140/82 140/82 O2 Sat by Pulse 91 90 Oximetry 05/14/19 05/14/19 05/14/19 04:31 04:41 04:51 Temperature Pulse Rate 93 H 93 H 89 Pulse Rate [ Anterior Bilateral] Pulse Rate [ From Monitor] Respiratory 19 30 H 21 Rate Respiratory Rate [Anterior Bilateral] Blood Pressure 140/82 140/82 140/82 O2 Sat by Pulse 91 90 90 Oximetry 05/14/19 05/14/19 05/14/19 05:01 05:11 05:21 Temperature Pulse Rate 88 87 87 Pulse Rate [ Anterior Bilateral] Pulse Rate [ From Monitor] Respiratory 18 19 18 Rate Respiratory Rate [Anterior Bilateral] Blood Pressure 121/73 121/73 121/73 O2 Sat by Pulse 91 91 88 Oximetry 05/14/19 05/14/19 05/14/19 05:31 05:41 05:51 Temperature Pulse Rate 88 89 89 Pulse Rate [ Anterior Bilateral] Pulse Rate [ From Monitor] Respiratory 19 20 20 Rate Respiratory Rate [Anterior Bilateral] Blood Pressure 121/73 121/73 121/73 O2 Sat by Pulse 90 90 93 Oximetry 05/14/19 05/14/19 05/14/19 06:00 06:11 06:21 Temperature Pulse Rate 88 88 87 Pulse Rate [ Anterior Bilateral] Pulse Rate [ From Monitor] Respiratory 17 25 H 19 Rate Respiratory Rate [Anterior Bilateral] Blood Pressure 123/79 123/79 123/79 O2 Sat by Pulse 93 92 92 Oximetry 05/14/19 05/14/19 05/14/19 06:31 06:41 06:51 Temperature Pulse Rate 88 86 87 Pulse Rate [ Anterior Bilateral] Pulse Rate [ From Monitor] Respiratory 24 18 15 Rate Respiratory Rate [Anterior Bilateral] Blood Pressure 123/79 123/79 123/79 O2 Sat by Pulse 91 91 87 Oximetry 05/14/19 05/14/19 05/14/19 07:00 07:11 07:19 Temperature 98.4 F Pulse Rate 86 89 Pulse Rate [ 95 H Anterior Bilateral] Pulse Rate [ From Monitor] Respiratory 22 24 Rate Respiratory 27 H Rate [Anterior Bilateral] Blood Pressure 120/78 120/78 O2 Sat by Pulse 88 94 Oximetry 05/14/19 05/14/19 05/14/19 07:21 07:31 07:41 Temperature Pulse Rate 92 H 89 87 Pulse Rate [ Anterior Bilateral] Pulse Rate [ From Monitor] Respiratory 22 22 21 Rate Respiratory Rate [Anterior Bilateral] Blood Pressure 120/78 120/78 120/78 O2 Sat by Pulse 96 93 92 Oximetry 05/14/19 05/14/19 05/14/19 07:42 07:51 08:00 Temperature Pulse Rate 87 87 Pulse Rate [ Anterior Bilateral] Pulse Rate [ 90 From Monitor] Respiratory 17 17 Rate Respiratory Rate [Anterior Bilateral] Blood Pressure 120/78 131/76 O2 Sat by Pulse 96 93 94 Oximetry 05/14/19 05/14/19 05/14/19 08:11 08:21 08:31 Temperature Pulse Rate 96 H 90 90 Pulse Rate [ Anterior Bilateral] Pulse Rate [ From Monitor] Respiratory 25 H 25 H 25 H Rate Respiratory Rate [Anterior Bilateral] Blood Pressure 131/76 131/76 131/76 O2 Sat by Pulse 92 92 93 Oximetry 05/14/19 05/14/19 05/14/19 08:41 08:51 09:00 Temperature Pulse Rate 89 93 H 92 H Pulse Rate [ Anterior Bilateral] Pulse Rate [ From Monitor] Respiratory 21 24 28 H Rate Respiratory Rate [Anterior Bilateral] Blood Pressure 131/76 131/76 137/83 O2 Sat by Pulse 94 92 94 Oximetry 05/14/19 09:32 Temperature Pulse Rate 105 H Pulse Rate [ Anterior Bilateral] Pulse Rate [ From Monitor] Respiratory Rate Respiratory Rate [Anterior Bilateral] Blood Pressure 137/83 O2 Sat by Pulse Oximetry Constitutional: alert, other (moderate respiratory distress, cachexia, chest wall tatoos) Eyes: non-icteric ENT: oropharynx dry Neck: supple, no lymphadenopathy, no JVD Effort: mildly labored Ascultation: Bilateral: diminished breath sounds (right lung), wheezes Cardiovascular: other (tachycardia, S1,S2) Gastrointestinal: normoactive bowel sounds, soft, non-tender, non-distended Integumentary: normal Extremities: no cyanosis, no edema, pulses normal, no ischemia or petechiae Neurologic: normal mental status, non-focal exam, pupils equal and round, CN II- XII normal, motor strength normal and Psychiatric: mood appropriate, anxious CBC and BMP: 05/13/19 09:36 05/13/19 23:15 ABG, PT/INR, D-dimer: ABG POC ABG pH 7.322 (7.35-7.45) L 05/13/19 11:04 POC ABG pCO2 55.6 (35-45) H 05/13/19 11:04 POC ABG pO2 68 (80-105) L 05/13/19 11:04 POC ABG HCO3 28.8 (22-26 mml/L) 05/13/19 11:04 POC ABG Total CO2 30 (23-27mmol/L) 05/13/19 11:04 POC ABG O2 Sat 91 05/13/19 11:04 PT/INR, D-dimer PT 14.3 Sec. (12.2-14.9) 05/12/19 18:10 INR 1.14 (0.87-1.13) H 05/12/19 18:10 Abnormal lab findings: Abnormal Labs 05/12/19 05/12/19 05/12/19 18:10 18:10 18:34 WBC 17.8 H RBC Hgb Hct MCV MCHC RDW 18.4 H Plt Count 579 H Lymph % (Auto) 6.0 L [place] % (Auto) Lymph # 1.1 L [place] # 1.1 H Seg Neutrophils % 87.2 H Seg Neutrophils # 15.5 H INR 1.14 H POC ABG pH POC ABG pCO2 POC ABG pO2 Potassium 5.2 H Chloride 96.3 L BUN 22 H Creatinine 0.4 L Glucose POC Glucose Alkaline Phosphatase 242 H CK-MB (CK-2) 7.6 H CK-MB (CK-2) Rel Index 11.8 H Albumin 2.8 L 05/13/19 05/13/19 05/13/19 08:43 09:36 11:04 WBC 18.9 H RBC 3.62 L Hgb 10.8 L Hct 34.8 L MCV 96 H MCHC 31 L RDW 19.0 H Plt Count 463 H Lymph % (Auto) 3.4 L [place] % (Auto) 7.4 H Lymph # 0.6 L [place] # 1.4 H Seg Neutrophils % 88.8 H Seg Neutrophils # 16.8 H INR POC ABG pH 7.322 L POC ABG pCO2 55.6 H POC ABG pO2 68 L Potassium Chloride BUN Creatinine Glucose POC Glucose 178 H Alkaline Phosphatase CK-MB (CK-2) CK-MB (CK-2) Rel Index Albumin 05/13/19 23:15 WBC RBC Hgb Hct MCV MCHC RDW Plt Count Lymph % (Auto) [place] % (Auto) Lymph # [place] # Seg Neutrophils % Seg Neutrophils # INR POC ABG pH POC ABG pCO2 POC ABG pO2 Potassium Chloride 97.7 L BUN 24 H Creatinine 0.5 L Glucose 206 H POC Glucose Alkaline Phosphatase 178 H CK-MB (CK-2) CK-MB (CK-2) Rel Index Albumin 2.4 L Allied health notes reviewed: RT (Adjust FIO2 as needed. If any increasing work of breathing, BIPAP)
[2019-05-14] MEDS: VANCOMYCIN/NS 1 GM/250 ML 1 GM/250 ML BAG IV SCH (12:39)
[2019-05-14] MEDS: RESTORIL PO PRN (21:36)
--- NOTE | 2019-05-15 02:38 | Consultation ---
REFERRING PHYSICIAN: Dr. Quinten Mitchell. REASON FOR CONSULTATION: History of lung cancer. HISTORY OF PRESENT ILLNESS: I saw the patient, a 68-year-old male in the medical floor. I had seen him in April. He has non-small cell lung cancer, adenocarcinoma. For his symptoms, Radiation consult was done. He was able to start this recently. The patient says that only a few days of radiation has been done and 2 more are pending. He came to the hospital because of shortness of breath. The patient has not been able to come to the clinic for me to do outpatient testing for the markers. The patient has past history of malnutrition, COPD, TB in 1986, status post treatment, status post radiation therapy, which is ongoing. The patient came to the hospital because of shortness of breath, fatigue, weakness for the last one week. During this admission, the patient was found to have pneumonia and was admitted to ICU. He is short of breath. I have been asked to evaluate the patient. He is on supportive care at this time. No headache. ____ on oxygen support shortness of breath, no chest pain, no vomiting, no diarrhea, no abdominal pain. No seizures. ALLERGIES: None. PAST MEDICAL HISTORY: Lung cancer and COPD. PAST SURGICAL HISTORY: None. SOCIAL HISTORY: Lives alone. FAMILY HISTORY: Hypertension. PRESENT MEDICATIONS: Includes vancomycin, thiamine, temazepam, oxycodone, Tylenol, Solu-Medrol, folic acid, Lovenox, diltiazem. PHYSICAL EXAMINATION: VITAL SIGNS: Temperature 97, pulse 82, respirations 20, BP 119/71. HEENT: No pallor, no icterus. Short of breath on oxygen support. NECK: No neck lymph nodes. HEART: S1, S2. LUNGS: Decreased air entry in the lungs. ABDOMEN: Soft. EXTREMITIES: No calf tenderness. LABORATORY DATA: White cell 18, hemoglobin 10.8, MCV 96, platelet 463. Potassium 4.9, creatinine 0.5, calcium 9.1 and bilirubin 0.3. RADIOLOGY: Chest x-ray was done, which showed opacification of the right hemithorax. ASSESSMENT: 1. Lung cancer. 2. Short of breath. 3. Right lung opacification. 4. The patient recently started on radiation. 5. Being treated for pneumonia. 6. Malnutrition. 7. Chronic obstructive pulmonary disease. 8. The patient on steroids and antibiotics. 9. The patient will need outpatient followup. I will follow the patient during inpatient stay. [facility]# [id number] ASHLEE/MAHENDRA
[2019-05-15] MEDS: CARDIZEM PO SCH ×4 (03:03→21:07)
[2019-05-15] MEDS: PERCOCET 5/325 PO PRN ×3 (03:04→18:35)
[2019-05-15] MEDS: SOLU-Medrol IV SCH ×3 (05:31→21:08)
[2019-05-15 05:43] LABS: Hemoglobin 10.9 gm/dl (11.8-15.2); Mean Corpuscular HGB Conc 33 % (32-34); Mean Corpuscular Volume 92 fl (84-94); Platelet Count 468 K/mm3 (140-440); Red Cell Distribution Width 18.3 % (13.2-15.2)
[2019-05-15 05:51] LABS: INR 1.17 (0.87-1.13)
--- NOTE | 2019-05-15 07:43 | Hem/Onc Progress Note ---
Assessment and Plan 1. Lung cancer. NSCLC 2. Short of breath. 3. Right lung opacification. 4. The patient recently started on radiation. 5. Being treated for pneumonia. 6. Malnutrition. 7. Chronic obstructive pulmonary disease. 8. The patient on steroids and antibiotics. 9. The patient will need outpatient followup. I will follow the patient during inpatient stay. I communicated with dr medina about pt plan for thoracentesis pt needs to make apt as OP for more IX and then OP Rx - Patient Problems (1) Lung cancer Current Visit: No Status: Chronic Qualifiers: Laterality: right Lung location: overlapping sites Qualified Code(s): C34.81 - Malignant neoplasm of overlapping sites of right bronchus and lung Subjective Date of service: 05/15/19 Principal diagnosis: lung ca Interval history: SOB - plan for thoracentesis Objective - Exam Narrative Exam: Pain - none General appearance SOB Performance status complete dependence Eyes - no icterus ENT no thrush LNs cervical not palpable Neck - normal ROM Respiratory SOB Breath sounds - decreased air entry CVS S1 S2 + Extremities normal temperature General GI Soft Rectal deferred male - deferred Skin warm Musculoskeletal moving normal Neurologically no focal deficit - Constitutional Vitals: Last Vital Signs Temp 98.1 F 05/15/19 04:00 Pulse 94 H 05/15/19 07:20 Resp 26 H 05/15/19 07:20 BP 131/82 05/15/19 07:20 Pulse Ox 95 05/15/19 07:20 - Labs Lab Results: Laboratory Results - last 24 hr 05/15/19 05/15/19 05:20 05:20 WBC 18.6 H RBC 3.60 L Hgb 10.9 L Hct 33.0 L MCV 92 MCH 30 MCHC 33 RDW 18.3 H Plt Count 468 H PT 14.6 INR 1.17 H Medications & Allergies - Medications Allergies/Adverse Reactions: Allergies No Known Allergies Allergy (Verified 05/12/19 17:25) Home Medications: Home Medications Medication Instructions Recorded Confirmed Last Taken Type Fluticasone/Salmeterol [Advair 1 puff IH BID #1 blst.w.dev 04/17/19 05/13/19 Unknown Rx 250-50 Diskus] Furosemide [Lasix] 20 mg PO QDAY #30 tablet 04/17/19 05/13/19 Unknown Rx Prednisone [predniSONE 10 mg 10 mg PO .TAPER #1 tab.ds.pk 04/17/19 05/13/19 Unknown Rx (6-Day Pack, 21 Tabs)] RX: ALBUTEROL Inhaler (OR & NICU) 2 puff IH QID PRN 30 Days #1 pump 04/17/19 05/13/19 Unknown Rx [ProAir HFA Inhaler] RX: Amiodarone [Cordarone 200 MG 200 mg PO DAILY #30 tablet 04/17/19 05/13/19 Unknown Rx TAB] RX: Benzonatate [Tessalon Perles] 200 mg PO Q8HR #30 capsule 04/17/19 05/13/19 Unknown Rx RX: Folic Acid [Folvite] 1 mg PO QDAY #30 tablet 04/17/19 05/13/19 Unknown Rx RX: Ipratropium/Albuterol Sulfate 1 ampul IH TIDRT #120 ampul.neb 04/17/19 05/13/19 Unknown Rx [DUONEB *Not for PRN Use*] RX: Nicotine [Habitrol] 14 mg TD QDAY #30 patch 04/17/19 05/13/19 Unknown Rx RX: Temazepam [Restoril] 15 mg PO QHS PRN #7 capsule 04/17/19 05/13/19 Unknown Rx RX: Thiamine [Vitamin B-1] 100 mg PO QDAY #30 tablet 04/17/19 05/13/19 Unknown Rx RX: dilTIAZem [Cardizem] 60 mg PO Q6H #120 tablet 04/17/19 05/13/19 Unknown Rx RX: oxyCODONE /ACETAMINOPHEN 1 tab PO Q6H PRN #14 tablet 04/17/19 05/13/19 Unknown Rx [Percocet 5/325 mg] RX: oxyCODONE /ACETAMINOPHEN 1 tab PO Q6H PRN #30 tablet 04/17/19 05/13/19 Unknown Rx [Percocet 5/325 mg] Active Medications: Generic Name Dose Route Start Last Admin Trade Name Freq PRN Reason Stop Dose Admin Acetaminophen 650 mg 05/12/19 20:13 05/14/19 06:10 Tylenol PO 650 mg Q4H PRN Administration Pain MILD(1-3)/Fever >100.5/BOO Albuterol 2.5 mg 05/12/19 20:13 05/14/19 03:28 Proventil IH 2.5 mg Q4HRT PRN Administration Shortness Of Breath Amiodarone HCl 200 mg 05/13/19 10:00 05/14/19 09:28 Cordarone PO 200 mg DAILY FRANCISCO JAVIER Administration Arformoterol Tartrate 15 mcg 05/13/19 08:00 05/14/19 19:43 Brovana Nebu IH Not Given Q12HRT FRANCISCO JAVIER Budesonide 0.5 mg 05/13/19 08:00 05/14/19 19:43 Pulmicort IH Not Given Q12HRT FRANCISCO JAVIER Diltiazem HCl 60 mg 05/12/19 21:00 05/15/19 03:03 Cardizem PO 60 mg Q6H FRANCISCO JAVIER Administration Enoxaparin Sodium 40 mg 05/14/19 10:00 05/14/19 09:28 Lovenox SUB-Q 40 mg QDAY@1000 FRANCISCO JAVIER Administration Folic Acid 1 mg 05/13/19 10:00 05/14/19 09:28 Folvite PO 1 mg QDAY FRANCISCO JAVIER Administration Furosemide 20 mg 05/13/19 10:00 05/14/19 09:28 Lasix PO 20 mg QDAY FRANCISCO JAVIER Administration Hydrocodone Bit/Homatropine Methylb 10 ml 05/13/19 07:15 Hydromet PO Q6H PRN Cough Cefepime HCl 2 gm in 100 mls @ 200 mls/hr 05/12/19 22:00 05/14/19 21:18 Maxipime/Ns 2 Gm/100 Ml IV 200 mls/hr Q8HR FRANCISCO JAVIER Administration Protocol Vancomycin HCl 1 gm in 250 mls @ 167.007 mls/hr 05/13/19 16:00 05/14/19 12:39 Vancomycin/Ns 1 Gm/250 Ml IV 167.007 mls/hr Q18H FRANCISCO JAVIER Administration Methylprednisolone Sodium Succinate 40 mg 05/13/19 14:00 05/15/19 05:31 Solu-Medrol IV 40 mg Q8HR FRANCISCO JAVIER Administration Nicotine 14 mg 05/13/19 10:00 05/14/19 09:29 Habitrol TD 14 mg QDAY FRANCISCO JAVIER Administration Ondansetron HCl 4 mg 05/12/19 20:13 Zofran IV Q8H PRN Nausea And Vomiting Oxycodone/Acetaminophen 1 tab 05/12/19 20:18 05/15/19 03:04 Percocet 5/325 PO 1 tab Q6H PRN Administration Pain, Moderate (4-6) Sodium Chloride 10 ml 05/12/19 22:00 05/14/19 21:23 Sodium Chloride Flush Syringe 10 Ml IV 10 ml BID FRANCISCO JAVIER Administration Sodium Chloride 10 ml 05/12/19 20:13 Sodium Chloride Flush Syringe 10 Ml IV PRN PRN LINE FLUSH Temazepam 15 mg 05/12/19 20:18 05/14/19 21:36 Restoril PO 15 mg QHS PRN Administration Sleep Thiamine HCl 100 mg 05/13/19 10:00 05/14/19 09:28 Vitamin B-1 PO 100 mg QDAY FRANCISCO JAVIER Administration
[2019-05-15] MEDS: PULMICORT IH SCH ×2 (08:32→21:25)
[2019-05-15] MEDS: BROVANA NEBU IH SCH ×2 (08:32→21:20)
[2019-05-15] MEDS: MAXIPIME/NS 2 GM/100 ML 2 GM/100 ML BAG IV SCH ×4 (08:56→21:09)
[2019-05-15] MEDS: VANCOMYCIN/NS 1 GM/250 ML 1 GM/250 ML BAG IV SCH (09:39)
[2019-05-15] MEDS: HABITROL TD SCH (09:47)
[2019-05-15] MEDS: LOVENOX SUB-Q SCH (09:47)
[2019-05-15] MEDS: VITAMIN B-1 PO SCH (13:35)
[2019-05-15] MEDS: CORDARONE PO SCH (13:35)
[2019-05-15] MEDS: FOLVITE PO SCH (13:35)
[2019-05-15] MEDS: LASIX PO SCH (13:36)
[2019-05-15] MEDS: SODIUM CHLORIDE FLUSH SYRINGE 10 ML IV SCH ×2 (13:36→21:09)
--- NOTE | 2019-05-15 14:02 | Progress Note ---
Assessment and Plan Patient weak and having increased work of breathing. Pt's O2 saturation 85% on 40% FiO2. Increased the FiO2 to 50% and O2 sat increased to 94%. - Patient Problems (1) Acute on chronic respiratory failure with hypoxia and hypercapnia Current Visit: Yes Status: Acute Plan to address problem: O2 supplementation. Venturi mask FiO2 50%. Albuterol and Atrovent aerosol treatments. Continue IV Solumedrol. Continue Cefipime and Vancomycin. Continue Enoxaparin Recommend GI Prophylaxis (2) COPD (chronic obstructive pulmonary disease) Current Visit: Yes Status: Acute Qualifiers: Chronic bronchitis type: mixed simple and mucopurulent Plan to address problem: O2 supplementation. Venturi mask FiO2 50%. Albuterol and Atrovent aerosol treatments. Continue IV Solumedrol. Continue Cefipime and Vancomycin. Continue Enoxaparin Recommend GI Prophylaxis (3) Lung malignancy Current Visit: Yes Status: Acute Qualifiers: Laterality: right Plan to address problem: Management as per oncology (4) Pleural effusion Current Visit: No Status: Acute Plan to address problem: Recommend ultrasound of the chest Subjective Date of service: 05/15/19 Interval history: Patient weak and having increased work of breathing. Pt's O2 saturation 85% on 40% FiO2. Increased the FiO2 to 50% and O2 sat increased to 94%. Objective Vital Signs - 12hr 05/15/19 05/15/19 05/15/19 02:00 02:10 02:20 Temperature Pulse Rate 89 90 88 Pulse Rate [ From Monitor] Respiratory 22 17 30 H Rate Respiratory Rate [Chest] Blood Pressure 143/86 143/86 143/86 O2 Sat by Pulse 95 93 93 Oximetry 05/15/19 05/15/19 05/15/19 02:30 02:40 02:50 Temperature Pulse Rate 90 85 93 H Pulse Rate [ From Monitor] Respiratory 28 H 17 27 H Rate Respiratory Rate [Chest] Blood Pressure 143/86 143/86 143/86 O2 Sat by Pulse 96 97 92 Oximetry 05/15/19 05/15/19 05/15/19 03:00 03:03 03:04 Temperature Pulse Rate 93 H 92 H Pulse Rate [ From Monitor] Respiratory 28 H 24 Rate Respiratory 24 Rate [Chest] Blood Pressure 137/85 137/85 O2 Sat by Pulse 96 Oximetry 05/15/19 05/15/19 05/15/19 03:10 03:20 03:30 Temperature Pulse Rate 92 H 85 87 Pulse Rate [ From Monitor] Respiratory 20 19 30 H Rate Respiratory Rate [Chest] Blood Pressure 137/85 137/85 137/85 O2 Sat by Pulse 97 97 95 Oximetry 05/15/19 05/15/19 05/15/19 03:40 03:50 04:00 Temperature 98.1 F Pulse Rate 89 86 84 Pulse Rate [ 90 From Monitor] Respiratory 24 14 25 H Rate Respiratory Rate [Chest] Blood Pressure 137/85 137/85 138/81 O2 Sat by Pulse 92 96 92 Oximetry 05/15/19 05/15/19 05/15/19 04:10 04:20 04:30 Temperature Pulse Rate 84 85 93 H Pulse Rate [ From Monitor] Respiratory 23 24 28 H Rate Respiratory Rate [Chest] Blood Pressure 138/81 138/81 138/81 O2 Sat by Pulse 93 91 93 Oximetry 05/15/19 05/15/19 05/15/19 04:40 04:50 05:00 Temperature Pulse Rate 87 83 83 Pulse Rate [ From Monitor] Respiratory 23 18 18 Rate Respiratory Rate [Chest] Blood Pressure 138/81 138/81 144/81 O2 Sat by Pulse 82 L 93 87 Oximetry 05/15/19 05/15/19 05/15/19 05:10 05:20 05:30 Temperature Pulse Rate 90 92 H 91 H Pulse Rate [ From Monitor] Respiratory 24 19 28 H Rate Respiratory Rate [Chest] Blood Pressure 144/81 144/81 144/81 O2 Sat by Pulse 90 94 97 Oximetry 05/15/19 05/15/19 05/15/19 05:40 05:50 06:00 Temperature Pulse Rate 90 86 81 Pulse Rate [ From Monitor] Respiratory 28 H 14 17 Rate Respiratory Rate [Chest] Blood Pressure 144/81 144/81 134/75 O2 Sat by Pulse 96 99 98 Oximetry 05/15/19 05/15/19 05/15/19 06:10 06:20 06:30 Temperature Pulse Rate 94 H 85 85 Pulse Rate [ From Monitor] Respiratory 22 23 35 H Rate Respiratory Rate [Chest] Blood Pressure 134/75 134/75 134/75 O2 Sat by Pulse 92 92 91 Oximetry 05/15/19 05/15/19 05/15/19 06:40 06:50 07:00 Temperature Pulse Rate 84 94 H 85 Pulse Rate [ From Monitor] Respiratory 32 H 22 13 Rate Respiratory Rate [Chest] Blood Pressure 134/75 134/75 131/82 O2 Sat by Pulse 89 92 99 Oximetry 05/15/19 05/15/19 05/15/19 07:10 07:20 07:22 Temperature 96.2 F L Pulse Rate 83 94 H Pulse Rate [ From Monitor] Respiratory 17 26 H Rate Respiratory Rate [Chest] Blood Pressure 131/82 131/82 O2 Sat by Pulse 96 95 Oximetry 05/15/19 05/15/19 05/15/19 07:30 07:40 07:50 Temperature Pulse Rate 91 H 89 82 Pulse Rate [ From Monitor] Respiratory 29 H 26 H 17 Rate Respiratory Rate [Chest] Blood Pressure 131/82 131/82 131/82 O2 Sat by Pulse 93 91 96 Oximetry 05/15/19 05/15/19 05/15/19 08:00 08:10 08:20 Temperature Pulse Rate 91 H 109 H 106 H Pulse Rate [ 83 From Monitor] Respiratory 33 H 32 H 32 H Rate Respiratory Rate [Chest] Blood Pressure 130/82 130/82 130/82 O2 Sat by Pulse 96 95 97 Oximetry 05/15/19 05/15/19 05/15/19 08:30 08:40 08:50 Temperature Pulse Rate 120 H 116 H 116 H Pulse Rate [ From Monitor] Respiratory 34 H 31 H 32 H Rate Respiratory Rate [Chest] Blood Pressure 130/82 130/82 130/82 O2 Sat by Pulse 97 93 98 Oximetry 05/15/19 05/15/19 05/15/19 09:00 09:10 09:20 Temperature Pulse Rate 109 H 109 H 118 H Pulse Rate [ From Monitor] Respiratory 28 H 27 H 21 Rate Respiratory Rate [Chest] Blood Pressure 128/80 128/80 128/80 O2 Sat by Pulse 99 98 99 Oximetry 05/15/19 05/15/19 05/15/19 09:30 09:40 09:50 Temperature Pulse Rate 120 H 122 H 120 H Pulse Rate [ From Monitor] Respiratory 21 36 H 30 H Rate Respiratory Rate [Chest] Blood Pressure 128/80 128/80 128/80 O2 Sat by Pulse 99 97 99 Oximetry 05/15/19 05/15/19 05/15/19 10:00 10:10 10:20 Temperature Pulse Rate 98 H 94 H 90 Pulse Rate [ From Monitor] Respiratory 20 17 15 Rate Respiratory Rate [Chest] Blood Pressure 140/84 140/84 140/84 O2 Sat by Pulse 100 100 Oximetry 05/15/19 05/15/19 05/15/19 10:30 10:40 10:50 Temperature Pulse Rate 91 H 94 H 97 H Pulse Rate [ From Monitor] Respiratory 18 18 28 H Rate Respiratory Rate [Chest] Blood Pressure 140/84 140/84 140/84 O2 Sat by Pulse 99 98 98 Oximetry 05/15/19 05/15/19 05/15/19 10:55 11:00 11:10 Temperature Pulse Rate 112 H 97 H 94 H Pulse Rate [ From Monitor] Respiratory 23 29 H Rate Respiratory Rate [Chest] Blood Pressure 128/80 149/87 149/87 O2 Sat by Pulse 98 99 Oximetry 05/15/19 05/15/19 05/15/19 12:24 12:30 12:40 Temperature Pulse Rate 100 H 103 H 92 H Pulse Rate [ From Monitor] Respiratory 17 28 H 32 H Rate Respiratory Rate [Chest] Blood Pressure O2 Sat by Pulse 87 86 91 Oximetry 05/15/19 05/15/19 12:50 13:00 Temperature Pulse Rate 88 95 H Pulse Rate [ From Monitor] Respiratory 37 H 19 Rate Respiratory Rate [Chest] Blood Pressure O2 Sat by Pulse 90 90 Oximetry Constitutional: alert, appears uncomfortable, other (moderate respiratory distress, cachexia, chest wall tatoos) Eyes: non-icteric ENT: oropharynx dry Neck: supple, no lymphadenopathy, no JVD Effort: mildly labored Ascultation: Bilateral: diminished breath sounds (right lung), wheezes Cardiovascular: other (tachycardia, S1,S2) Gastrointestinal: normoactive bowel sounds, soft, non-tender, non-distended Integumentary: normal Extremities: no cyanosis, no edema, pulses normal, no ischemia or petechiae Neurologic: normal mental status, non-focal exam, pupils equal and round, CN II- XII normal, motor strength normal and Psychiatric: anxious CBC and BMP: 05/15/19 05:20 05/13/19 23:15 ABG, PT/INR, D-dimer: ABG POC ABG pH 7.322 (7.35-7.45) L 05/13/19 11:04 POC ABG pCO2 55.6 (35-45) H 05/13/19 11:04 POC ABG pO2 68 (80-105) L 05/13/19 11:04 POC ABG HCO3 28.8 (22-26 mml/L) 05/13/19 11:04 POC ABG Total CO2 30 (23-27mmol/L) 05/13/19 11:04 POC ABG O2 Sat 91 05/13/19 11:04 PT/INR, D-dimer PT 14.6 Sec. (12.2-14.9) 05/15/19 05:20 INR 1.17 (0.87-1.13) H 05/15/19 05:20 Abnormal lab findings: Abnormal Labs 05/12/19 05/12/19 05/12/19 18:10 18:10 18:34 WBC 17.8 H RBC Hgb Hct MCV MCHC RDW 18.4 H Plt Count 579 H Lymph % (Auto) 6.0 L [place] % (Auto) Lymph # 1.1 L [place] # 1.1 H Seg Neutrophils % 87.2 H Seg Neutrophils # 15.5 H INR 1.14 H POC ABG pH POC ABG pCO2 POC ABG pO2 Potassium 5.2 H Chloride 96.3 L BUN 22 H Creatinine 0.4 L Glucose POC Glucose Alkaline Phosphatase 242 H CK-MB (CK-2) 7.6 H CK-MB (CK-2) Rel Index 11.8 H Albumin 2.8 L 05/13/19 05/13/19 05/13/19 08:43 09:36 11:04 WBC 18.9 H RBC 3.62 L Hgb 10.8 L Hct 34.8 L MCV 96 H MCHC 31 L RDW 19.0 H Plt Count 463 H Lymph % (Auto) 3.4 L [place] % (Auto) 7.4 H Lymph # 0.6 L [place] # 1.4 H Seg Neutrophils % 88.8 H Seg Neutrophils # 16.8 H INR POC ABG pH 7.322 L POC ABG pCO2 55.6 H POC ABG pO2 68 L Potassium Chloride BUN Creatinine Glucose POC Glucose 178 H Alkaline Phosphatase CK-MB (CK-2) CK-MB (CK-2) Rel Index Albumin 05/13/19 05/15/19 05/15/19 23:15 05:20 05:20 WBC 18.6 H RBC 3.60 L Hgb 10.9 L Hct 33.0 L MCV MCHC RDW 18.3 H Plt Count 468 H Lymph % (Auto) [place] % (Auto) Lymph # [place] # Seg Neutrophils % Seg Neutrophils # INR 1.17 H POC ABG pH POC ABG pCO2 POC ABG pO2 Potassium Chloride 97.7 L BUN 24 H Creatinine 0.5 L Glucose 206 H POC Glucose Alkaline Phosphatase 178 H CK-MB (CK-2) CK-MB (CK-2) Rel Index Albumin 2.4 L Chest x-ray: report reviewed, image reviewed Additional Studies: Chest Xray 05/12/19: Complete opacification of the right hemithorax. Allied health notes reviewed: RT (Adjust FIO2 as needed. If any increasing work of breathing, BIPAP)
[2019-05-15] MEDS: PROVENTIL IH PRN (14:14)
--- NOTE | 2019-05-15 14:21 | Progress Note ---
Assessment and Plan 68-year-old man was brought down for possible pleural catheter placement. Patient was saturating 90% on a nonrebreather in mild respiratory distress with accessory muscle use. It is unclear if he could even tolerate the procedure. I performed a bedside ultrasound of his right pleural cavity which demonstrated numerous loculations making pleural catheter placement of limited benefit in addition to the mass in his right lung preventing expansion of the right lung. I tried to explain this to him, but the patient did not want to listen to this explanation, and therefore I contacted his shirt maker to explain why he was a suboptimal patient for this procedure. Patient returned to the floor. Subjective Date of service: 05/15/19 Principal diagnosis: Malignancy right lung Objective - Constitutional Vitals: Vital Signs - 12hr 05/15/19 05/15/19 05/15/19 02:20 02:30 02:40 Temperature Pulse Rate 88 90 85 Pulse Rate [ From Monitor] Respiratory 30 H 28 H 17 Rate Respiratory Rate [Chest] Blood Pressure 143/86 143/86 143/86 O2 Sat by Pulse 93 96 97 Oximetry 05/15/19 05/15/19 05/15/19 02:50 03:00 03:03 Temperature Pulse Rate 93 H 93 H 92 H Pulse Rate [ From Monitor] Respiratory 27 H 28 H Rate Respiratory 24 Rate [Chest] Blood Pressure 143/86 137/85 137/85 O2 Sat by Pulse 92 96 Oximetry 05/15/19 05/15/19 05/15/19 03:04 03:10 03:20 Temperature Pulse Rate 92 H 85 Pulse Rate [ From Monitor] Respiratory 24 20 19 Rate Respiratory Rate [Chest] Blood Pressure 137/85 137/85 O2 Sat by Pulse 97 97 Oximetry 05/15/19 05/15/19 05/15/19 03:30 03:40 03:50 Temperature Pulse Rate 87 89 86 Pulse Rate [ From Monitor] Respiratory 30 H 24 14 Rate Respiratory Rate [Chest] Blood Pressure 137/85 137/85 137/85 O2 Sat by Pulse 95 92 96 Oximetry 05/15/19 05/15/19 05/15/19 04:00 04:10 04:20 Temperature 98.1 F Pulse Rate 84 84 85 Pulse Rate [ 90 From Monitor] Respiratory 25 H 23 24 Rate Respiratory Rate [Chest] Blood Pressure 138/81 138/81 138/81 O2 Sat by Pulse 92 93 91 Oximetry 0805/15/19 05/15/19 04:30 04:40 04:50 Temperature Pulse Rate 93 H 87 83 Pulse Rate [ From Monitor] Respiratory 28 H 23 18 Rate Respiratory Rate [Chest] Blood Pressure 138/81 138/81 138/81 O2 Sat by Pulse 93 82 L 93 Oximetry 05/15/19 05/15/19 05/15/19 05:00 05:10 05:20 Temperature Pulse Rate 83 90 92 H Pulse Rate [ From Monitor] Respiratory 18 24 19 Rate Respiratory Rate [Chest] Blood Pressure 144/81 144/81 144/81 O2 Sat by Pulse 87 90 94 Oximetry 05/15/19 05/15/19 05/15/19 05:30 05:40 05:50 Temperature Pulse Rate 91 H 90 86 Pulse Rate [ From Monitor] Respiratory 28 H 28 H 14 Rate Respiratory Rate [Chest] Blood Pressure 144/81 144/81 144/81 O2 Sat by Pulse 97 96 99 Oximetry 05/15/19 05/15/19 05/15/19 06:00 06:10 06:20 Temperature Pulse Rate 81 94 H 85 Pulse Rate [ From Monitor] Respiratory 17 22 23 Rate Respiratory Rate [Chest] Blood Pressure 134/75 134/75 134/75 O2 Sat by Pulse 98 92 92 Oximetry 05/15/19 05/15/19 05/15/19 06:30 06:40 06:50 Temperature Pulse Rate 85 84 94 H Pulse Rate [ From Monitor] Respiratory 35 H 32 H 22 Rate Respiratory Rate [Chest] Blood Pressure 134/75 134/75 134/75 O2 Sat by Pulse 91 89 92 Oximetry 05/15/19 05/15/19 05/15/19 07:00 07:10 07:20 Temperature Pulse Rate 85 83 94 H Pulse Rate [ From Monitor] Respiratory 13 17 26 H Rate Respiratory Rate [Chest] Blood Pressure 131/82 131/82 131/82 O2 Sat by Pulse 99 96 95 Oximetry 05/15/19 05/15/19 05/15/19 07:22 07:30 07:40 Temperature 96.2 F L Pulse Rate 91 H 89 Pulse Rate [ From Monitor] Respiratory 29 H 26 H Rate Respiratory Rate [Chest] Blood Pressure 131/82 131/82 O2 Sat by Pulse 93 91 Oximetry 05/15/19 05/15/19 05/15/19 07:50 08:00 08:10 Temperature Pulse Rate 82 91 H 109 H Pulse Rate [ 83 From Monitor] Respiratory 17 33 H 32 H Rate Respiratory Rate [Chest] Blood Pressure 131/82 130/82 130/82 O2 Sat by Pulse 96 96 95 Oximetry 05/15/19 05/15/19 05/15/19 08:20 08:30 08:40 Temperature Pulse Rate 106 H 120 H 116 H Pulse Rate [ From Monitor] Respiratory 32 H 34 H 31 H Rate Respiratory Rate [Chest] Blood Pressure 130/82 130/82 130/82 O2 Sat by Pulse 97 97 93 Oximetry 05/15/19 05/15/19 05/15/19 08:50 09:00 09:10 Temperature Pulse Rate 116 H 109 H 109 H Pulse Rate [ From Monitor] Respiratory 32 H 28 H 27 H Rate Respiratory Rate [Chest] Blood Pressure 130/82 128/80 128/80 O2 Sat by Pulse 98 99 98 Oximetry 05/15/19 05/15/19 05/15/19 09:20 09:30 09:40 Temperature Pulse Rate 118 H 120 H 122 H Pulse Rate [ From Monitor] Respiratory 21 21 36 H Rate Respiratory Rate [Chest] Blood Pressure 128/80 128/80 128/80 O2 Sat by Pulse 99 99 97 Oximetry 05/15/19 05/15/19 05/15/19 09:50 10:00 10:10 Temperature Pulse Rate 120 H 98 H 94 H Pulse Rate [ From Monitor] Respiratory 30 H 20 17 Rate Respiratory Rate [Chest] Blood Pressure 128/80 140/84 140/84 O2 Sat by Pulse 99 100 Oximetry 05/15/19 05/15/19 05/15/19 10:20 10:30 10:40 Temperature Pulse Rate 90 91 H 94 H Pulse Rate [ From Monitor] Respiratory 15 18 18 Rate Respiratory Rate [Chest] Blood Pressure 140/84 140/84 140/84 O2 Sat by Pulse 100 99 98 Oximetry 05/15/19 05/15/19 05/15/19 10:50 10:55 11:00 Temperature Pulse Rate 97 H 112 H 97 H Pulse Rate [ From Monitor] Respiratory 28 H 23 Rate Respiratory Rate [Chest] Blood Pressure 140/84 128/80 149/87 O2 Sat by Pulse 98 98 Oximetry 05/15/19 05/15/19 05/15/19 11:10 12:24 12:30 Temperature Pulse Rate 94 H 100 H 103 H Pulse Rate [ From Monitor] Respiratory 29 H 17 28 H Rate Respiratory Rate [Chest] Blood Pressure 149/87 O2 Sat by Pulse 99 87 86 Oximetry 05/15/19 05/15/19 05/15/19 12:40 12:50 13:00 Temperature Pulse Rate 92 H 88 95 H Pulse Rate [ From Monitor] Respiratory 32 H 37 H 19 Rate Respiratory Rate [Chest] Blood Pressure O2 Sat by Pulse 91 90 90 Oximetry 05/15/19 14:13 Temperature Pulse Rate Pulse Rate [ From Monitor] Respiratory Rate Respiratory Rate [Chest] Blood Pressure O2 Sat by Pulse 93 Oximetry - Labs CBC & Chem 7: 05/15/19 05:20 05/13/19 23:15 Labs: Abnormal lab results 05/15/19 05/15/19 Range/Units 05:20 05:20 WBC 18.6 H (4.5-11.0) K/mm3 RBC 3.60 L (3.65-5.03) M/mm3 Hgb 10.9 L (11.8-15.2) gm/dl Hct 33.0 L (35.5-45.6) % RDW 18.3 H (13.2-15.2) % Plt Count 468 H (140-440) K/mm3 INR 1.17 H (0.87-1.13) Medications & Allergies - Medications Allergies/Adverse Reactions: Allergies No Known Allergies Allergy (Verified 05/12/19 17:25) Home Medications: Home Medications Medication Instructions Recorded Confirmed Last Taken Type ALBUTEROL Inhaler (OR & NICU) 2 puff IH QID PRN 30 Days #1 pump 04/17/19 05/13/19 Unknown Rx [ProAir HFA Inhaler] Amiodarone [Cordarone 200 MG TAB] 200 mg PO DAILY #30 tablet 04/17/19 05/13/19 Unknown Rx Benzonatate [Tessalon Perles] 200 mg PO Q8HR #30 capsule 04/17/19 05/13/19 Unknown Rx Fluticasone/Salmeterol [Advair 1 puff IH BID #1 blst.w.dev 04/17/19 05/13/19 Unknown Rx 250-50 Diskus] Folic Acid [Folvite] 1 mg PO QDAY #30 tablet 04/17/19 05/13/19 Unknown Rx Furosemide [Lasix] 20 mg PO QDAY #30 tablet 04/17/19 05/13/19 Unknown Rx Ipratropium/Albuterol Sulfate 1 ampul IH TIDRT #120 ampul.neb 04/17/19 05/13/19 Unknown Rx [DUONEB *Not for PRN Use*] Nicotine [Habitrol] 14 mg TD QDAY #30 patch 04/17/19 05/13/19 Unknown Rx Prednisone [predniSONE 10 mg 10 mg PO .TAPER #1 tab.ds.pk 04/17/19 05/13/19 Unknown Rx (6-Day Pack, 21 Tabs)] Temazepam [Restoril] 15 mg PO QHS PRN #7 capsule 04/17/19 05/13/19 Unknown Rx Thiamine [Vitamin B-1] 100 mg PO QDAY #30 tablet 04/17/19 05/13/19 Unknown Rx dilTIAZem [Cardizem] 60 mg PO Q6H #120 tablet 04/17/19 05/13/19 Unknown Rx oxyCODONE /ACETAMINOPHEN [Percocet 1 tab PO Q6H PRN #14 tablet 04/17/19 05/13/19 Unknown Rx 5/325 mg] oxyCODONE /ACETAMINOPHEN [Percocet 1 tab PO Q6H PRN #30 tablet 04/17/19 05/13/19 Unknown Rx 5/325 mg] Active Medications: Generic Name Dose Route Start Last Admin Trade Name Freq PRN Reason Stop Dose Admin Acetaminophen 650 mg 05/12/19 20:13 05/14/19 06:10 Tylenol PO 650 mg Q4H PRN Administration Pain MILD(1-3)/Fever >100.5/BOO Albuterol 2.5 mg 05/12/19 20:13 05/15/19 14:14 Proventil IH 2.5 mg Q4HRT PRN Administration Shortness Of Breath Amiodarone HCl 200 mg 05/13/19 10:00 05/15/19 13:35 Cordarone PO 200 mg DAILY FRANCISCO JAVIER Administration Arformoterol Tartrate 15 mcg 05/13/19 08:00 05/15/19 08:32 Brovana Nebu IH Not Given Q12HRT FRANCISCO JAVIER Budesonide 0.5 mg 05/13/19 08:00 05/15/19 08:32 Pulmicort IH Not Given Q12HRT FRANCISCO JAVIER Diltiazem HCl 60 mg 05/12/19 21:00 05/15/19 10:55 Cardizem PO Not Given Q6H FRANCISCO JAVIER Enoxaparin Sodium 40 mg 05/14/19 10:00 05/15/19 09:47 Lovenox SUB-Q 40 mg QDAY@1000 FRANCISCO JAVIER Administration Folic Acid 1 mg 05/13/19 10:00 05/15/19 13:35 Folvite PO 1 mg QDAY FRANCISCO JAVIER Administration Furosemide 20 mg 05/13/19 10:00 05/15/19 13:36 Lasix PO 20 mg QDAY FRANCISCO JAVIER Administration Hydrocodone Bit/Homatropine Methylb 10 ml 05/13/19 07:15 Hydromet PO Q6H PRN Cough Cefepime HCl 2 gm in 100 mls @ 200 mls/hr 05/12/19 22:00 05/15/19 09:30 Maxipime/Ns 2 Gm/100 Ml IV Not Given Q8HR [facility] Protocol Vancomycin HCl 1 gm in 250 mls @ 167.007 mls/hr 05/15/19 10:00 05/15/19 09:39 Vancomycin/Ns 1 Gm/250 Ml IV 167.007 mls/hr Q18H FRANCISCO JAVIER Administration Methylprednisolone Sodium Succinate 40 mg 05/13/19 14:00 05/15/19 13:35 Solu-Medrol IV 40 mg Q8HR FRANCISCO JAVIER Administration Nicotine 14 mg 05/13/19 10:00 05/15/19 09:47 Habitrol TD 14 mg QDAY FRANCISCO JAVIER Administration Ondansetron HCl 4 mg 05/12/19 20:13 Zofran IV Q8H PRN Nausea And Vomiting Oxycodone/Acetaminophen 1 tab 05/12/19 20:18 05/15/19 12:29 Percocet 5/325 PO 1 tab Q6H PRN Administration Pain, Moderate (4-6) Sodium Chloride 10 ml 05/12/19 22:00 05/15/19 13:36 Sodium Chloride Flush Syringe 10 Ml IV 10 ml BID FRANCISCO JAVIER Administration Sodium Chloride 10 ml 05/12/19 20:13 Sodium Chloride Flush Syringe 10 Ml IV PRN PRN LINE FLUSH Temazepam 15 mg 05/12/19 20:18 05/14/19 21:36 Restoril PO 15 mg QHS PRN Administration Sleep Thiamine HCl 100 mg 05/13/19 10:00 05/15/19 13:35 Vitamin B-1 PO 100 mg QDAY FRANCISCO JAVIER Administration
--- NOTE | 2019-05-15 18:10 | Progress Note ---
Assessment and Plan Assessment and plan: 68 YO Male with Right Lung Adenocarcinoma, Severe Malnutrition,COPD, TB in 1986 S/P Full course therapy, S/P radiation therapy today. Pt states that he has experienced shortness of breath, fatigue, and progressive weakness over the past 1 week with worsening symptoms over the past 4 days, with concomitant worsening of symptoms after radiation therapy today. Pt was instructed by his Oncologist to seek further care. Pt transported to [facility] via private vehicle. Pt seen and evaluated in ED and found to have Bilateral Pneumonia complicated by SIRS, as well as Lung Maligancy. Pt counseled regarding poor prognosis. Pt requests aggressive medical therapy. Pt admitted to [facility] and initiated on Pneumonia Protocol for Healthcare Associated Pneumonia. Pt denies fever, chills, CP, Palpitations, Trauma, Hemoptysis, Skin Rash, Edema, or recent ill contacts. Prior Admission on 04/08/19 reviewed. All listed medication reconciled at time of admission. 30 minutes additional time dedicated to Advanced care planning, and discussion of goals of care. Chest xray: Lungs/Pleura: There is persistent complete opacification of the right hemithorax. Diffuse left lung interstitial opacities persist, these are slightly improved when compared with the prior exam. * PER IR "Patient was saturating 90% on a nonrebreather in mild respiratory distress with accessory muscle use. It is unclear if he could even tolerate the procedure. I performed a bedside ultrasound of his right pleural cavity which demonstrated numerous loculations making pleural catheter placement of limited benefit in addition to the mass in his right lung preventing expansion of the right lung. I tried to explain this to him, but the patient did not want to listen to this explanation, and therefore I contacted his nursing home assistant to explain why he was a suboptimal patient for this procedure. Patient returned to the floor." * I have explained to the patient the gravity and severity of his condition. I have also discussed with the nursing home assistant and the patients family friend as agreed with the patient. Acute Respiratory failure with Hypoxia- Now on venturi mask Complete Opacification of right hemithorax secondary to Non small cell lung ca and loculated fluids Pneumonia likely gram negative Non small cell lung CA- diagnose 03/2019 SIRS with no organ dysfunction Severe Protein calorie malnutrition with cachexia COPD A fib Hyperkalemia Agitation/Anxiety Hx ot ETOH abuse remote history of TB diagnosis 1986, treated for 6 months-negative AFB 4 in March 2019 Plan Continue supportive care Hospice discussed and patient will like to speak to Rep Consult Pulmonary and Oncology- INPUT NOTED Continue IMCU care, patient with rising WBC, Refusing some labs and also still with shortness of breath with minimal exertion Ok to eat but monitor for aspiration Continue oxygen therapy, nebs patient definitely appears to be only amendable to palliative care but will await oncology input. Continue Abx Advance care planning DVT prophylaxis Current Visit: Yes Status: Acute Plan to address problem: SCD to BLE while in bed, Pt ambulatory at this time. History Interval history: Admitted with shortness of breath. Patient seen and examined this morning, still with conversational dyspnea, and on high flow. evident use of accessory muscle Hospitalist Physical - Physical exam Narrative exam: General appearance: Present: cachectic, other (moderate distress)-high flow oxygen nc - EENT Eyes: Present: PERRL, EOM intact ENT: hearing intact, clear oral mucosa - Neck Neck: Present: supple, normal ROM - Respiratory Respiratory effort: labored, accessory muscle use Respiratory: bilateral: diminished - Extremities Extremities: no ischemia, pulses intact, pulses symmetrical, No edema, Full ROM Peripheral Pulses: within normal limits - Abdominal General gastrointestinal: soft, non-tender, non-distended, normal bowel sounds - Integumentary Integumentary: Present: warm, dry (tattoo) - Psychiatric Psychiatric: appropriate mood/affect - Neurologic Neurologic: CNII-XII intact, moves all extremities - Allied Health Allied health notes reviewed: nursing - Constitutional Vitals: Temp Pulse Resp BP Pulse Ox 98.2 F 94 H 18 133/79 90 05/15/19 15:00 05/15/19 16:20 05/15/19 16:20 05/15/19 16:20 05/15/19 16:20 General appearance: Present: no acute distress Results - Labs CBC & Chem 7: 05/15/19 05:20 05/13/19 23:15 Labs: Laboratory Last Values WBC 18.6 K/mm3 (4.5-11.0) H 05/15/19 05:20 RBC 3.60 M/mm3 (3.65-5.03) L 05/15/19 05:20 Hgb 10.9 gm/dl (11.8-15.2) L 05/15/19 05:20 Hct 33.0 % (35.5-45.6) L 05/15/19 05:20 MCV 92 fl (84-94) 05/15/19 05:20 MCH 30 pg (28-32) 05/15/19 05:20 MCHC 33 % (32-34) 05/15/19 05:20 RDW 18.3 % (13.2-15.2) H 05/15/19 05:20 Plt Count 468 K/mm3 (140-440) H 05/15/19 05:20 Lymph % (Auto) 3.4 % (13.4-35.0) L 05/13/19 09:36 [place] % (Auto) 7.4 % (0.0-7.3) H 05/13/19 09:36 Eos % (Auto) 0.3 % (0.0-4.3) 05/13/19 09:36 Baso % (Auto) 0.1 % (0.0-1.8) 05/13/19 09:36 Lymph # 0.6 K/mm3 (1.2-5.4) L 05/13/19 09:36 [place] # 1.4 K/mm3 (0.0-0.8) H 05/13/19 09:36 Eos # 0.1 K/mm3 (0.0-0.4) 05/13/19 09:36 Baso # 0.0 K/mm3 (0.0-0.1) 05/13/19 09:36 Seg Neutrophils % 88.8 % (40.0-70.0) H 05/13/19 09:36 Seg Neutrophils # 16.8 K/mm3 (1.8-7.7) H 05/13/19 09:36 PT 14.6 Sec. (12.2-14.9) 05/15/19 05:20 INR 1.17 (0.87-1.13) H 05/15/19 05:20 APTT 32.6 Sec. (24.2-36.6) 05/12/19 18:10 POC ABG pH 7.322 (7.35-7.45) L 05/13/19 11:04 POC ABG pCO2 55.6 (35-45) H 05/13/19 11:04 POC ABG pO2 68 (80-105) L 05/13/19 11:04 POC ABG HCO3 28.8 (22-26 mml/L) 05/13/19 11:04 POC ABG Total CO2 30 (23-27mmol/L) 05/13/19 11:04 POC ABG O2 Sat 91 05/13/19 11:04 POC ABG Base Excess 3 ((-2) - (+3)mmol/L) 05/13/19 11:04 32 % 05/13/19 11:04 Sodium 138 mmol/L (137-145) 05/13/19 23:15 Potassium 4.9 mmol/L (3.6-5.0) 05/13/19 23:15 Chloride 97.7 mmol/L (98-107) L 05/13/19 23:15 Carbon Dioxide 30 mmol/L (22-30) 05/13/19 23:15 15 mmol/L 05/13/19 23:15 BUN 24 mg/dL (9-20) H 05/13/19 23:15 0.5 mg/dL (0.8-1.5) L 05/13/19 23:15 Estimated GFR > 60 ml/min 05/13/19 23:15 48 % 05/13/19 23:15 Glucose 206 mg/dL (75-100) H 05/13/19 23:15 POC Glucose 178 (70-105) H 05/13/19 08:43 Calcium 9.1 mg/dL (8.4-10.2) 05/13/19 23:15 0.30 mg/dL (0.1-1.2) 05/13/19 23:15 AST 14 units/L (5-40) 05/13/19 23:15 ALT 18 units/L (7-56) 05/13/19 23:15 178 units/L (35-129) H 05/13/19 23:15 64 units/L (55-170) 05/12/19 18:34 CK-MB (CK-2) 7.6 ng/mL (0.0-4.0) H 05/12/19 18:34 CK-MB (CK-2) Rel Index 11.8 (0-4) H 05/12/19 18:34 < 0.010 ng/mL (0.00-0.029) 05/12/19 18:10 NT-Pro-B Natriuret Pep 878.4 pg/mL (0-900) 05/12/19 18:10 7.6 g/dL (6.3-8.2) 05/13/19 23:15 2.4 g/dL (3.9-5) L 05/13/19 23:15 0.5 % 05/13/19 23:15 Active Medications - Current Medications Current Medications: Generic Name Dose Route Start Last Admin Trade Name Freq PRN Reason Stop Dose Admin Acetaminophen 650 mg 05/12/19 20:13 05/14/19 06:10 Tylenol PO 650 mg Q4H PRN Administration Pain MILD(1-3)/Fever >100.5/BOO Albuterol 2.5 mg 05/12/19 20:13 05/15/19 14:14 Proventil IH 2.5 mg Q4HRT PRN Administration Shortness Of Breath Amiodarone HCl 200 mg 05/13/19 10:00 05/15/19 13:35 Cordarone PO 200 mg DAILY FRANCISCO JAVIER Administration Arformoterol Tartrate 15 mcg 05/13/19 08:00 05/15/19 08:32 Brovana Nebu IH Not Given Q12HRT FRANCISCO JAVIER Budesonide 0.5 mg 05/13/19 08:00 05/15/19 08:32 Pulmicort IH Not Given Q12HRT FRANCISCO JAVIER Diltiazem HCl 60 mg 05/12/19 21:00 05/15/19 15:15 Cardizem PO 60 mg Q6H FRANCISCO JAVIER Administration Enoxaparin Sodium 40 mg 05/14/19 10:00 05/15/19 09:47 Lovenox SUB-Q 40 mg QDAY@1000 FRANCISCO JAVIER Administration Folic Acid 1 mg 05/13/19 10:00 05/15/19 13:35 Folvite PO 1 mg QDAY FRANCISCO JAVIER Administration Furosemide 20 mg 05/13/19 10:00 05/15/19 13:36 Lasix PO 20 mg QDAY FRANCISCO JAVIER Administration Hydrocodone Bit/Homatropine Methylb 10 ml 05/13/19 07:15 Hydromet PO Q6H PRN Cough Cefepime HCl 2 gm in 100 mls @ 200 mls/hr 05/12/19 22:00 05/15/19 15:15 Maxipime/Ns 2 Gm/100 Ml IV 200 mls/hr Q8HR FRANCISCO JAVIER Administration Protocol Vancomycin HCl 1 gm in 250 mls @ 167.007 mls/hr 05/15/19 10:00 05/15/19 09:39 Vancomycin/Ns 1 Gm/250 Ml IV 167.007 mls/hr Q18H FRANCISCO JAVIER Administration Methylprednisolone Sodium Succinate 40 mg 05/13/19 14:00 05/15/19 13:35 Solu-Medrol IV 40 mg Q8HR FRANCISCO JAVIER Administration Nicotine 14 mg 05/13/19 10:00 05/15/19 09:47 Habitrol TD 14 mg QDAY FRANCISCO JAVIER Administration Ondansetron HCl 4 mg 05/12/19 20:13 Zofran IV Q8H PRN Nausea And Vomiting Oxycodone/Acetaminophen 1 tab 05/12/19 20:18 05/15/19 12:29 Percocet 5/325 PO 1 tab Q6H PRN Administration Pain, Moderate (4-6) Sodium Chloride 10 ml 05/12/19 22:00 05/15/19 13:36 Sodium Chloride Flush Syringe 10 Ml IV 10 ml BID FRANCISCO JAVIER Administration Sodium Chloride 10 ml 05/12/19 20:13 Sodium Chloride Flush Syringe 10 Ml IV PRN PRN LINE FLUSH Temazepam 15 mg 05/12/19 20:18 05/14/19 21:36 Restoril PO 15 mg QHS PRN Administration Sleep Thiamine HCl 100 mg 05/13/19 10:00 05/15/19 13:35 Vitamin B-1 PO 100 mg QDAY FRANCISCO JAVIER Administration
[2019-05-15] MEDS: RESTORIL PO PRN (21:07)
[2019-05-16] MEDS: CARDIZEM PO SCH ×4 (02:35→21:00)
[2019-05-16] MEDS: PERCOCET 5/325 PO PRN ×4 (02:36→20:44)
[2019-05-16] MEDS: VANCOMYCIN/NS 1 GM/250 ML 1 GM/250 ML BAG IV SCH (06:19)
[2019-05-16] MEDS ORDERED: DILAUDID IV ONE (06:19)
[2019-05-16] MEDS: SOLU-Medrol IV SCH ×3 (06:20→22:25)
--- NOTE | 2019-05-16 06:22 | Hem/Onc Progress Note ---
Assessment and Plan 1. Lung cancer. NSCLC 2. h/o Short of breath. 3. h/o Right lung opacification. 4. The patient recently started on radiation. 5. Being treated for pneumonia. 6. Malnutrition. 7. Chronic obstructive pulmonary disease. 8. The patient on steroids and antibiotics. 9. The patient will need outpatient followup. I will follow the patient during inpatient stay. I communicated with dr medina about pt thoracentesis was attempted pt needs to make apt as OP for more IX and then OP Rx XRT being done by dr medina ? hospice appropriate - Patient Problems (1) Lung cancer Current Visit: No Status: Chronic Qualifiers: Laterality: right Lung location: overlapping sites Qualified Code(s): C34.81 - Malignant neoplasm of overlapping sites of right bronchus and lung Subjective Date of service: 05/16/19 Principal diagnosis: lung ca Interval history: on o2 Objective - Exam Narrative Exam: Pain - none General appearance SOB Performance status complete dependence Eyes - no icterus ENT no thrush LNs cervical not palpable Neck - normal ROM Respiratory SOB Breath sounds - decreased air entry CVS S1 S2 + Extremities normal temperature General GI Soft Rectal deferred male - deferred Skin warm Musculoskeletal moving normal Neurologically no focal deficit - Constitutional Vitals: Last Vital Signs Temp 97.4 F L 05/16/19 04:00 Pulse 78 05/16/19 02:35 Resp 20 05/16/19 02:36 BP 136/85 05/16/19 02:35 Pulse Ox 93 05/16/19 02:27 - Labs Lab Results: Laboratory Results - last 24 hr 05/15/19 23:47 POC Glucose 165 H Medications & Allergies - Medications Allergies/Adverse Reactions: Allergies No Known Allergies Allergy (Verified 05/12/19 17:25) Home Medications: Home Medications Medication Instructions Recorded Confirmed Last Taken Type ALBUTEROL Inhaler (OR & NICU) 2 puff IH QID PRN 30 Days #1 pump 04/17/19 05/13/19 Unknown Rx [ProAir HFA Inhaler] Amiodarone [Cordarone 200 MG TAB] 200 mg PO DAILY #30 tablet 04/17/19 05/13/19 Unknown Rx Benzonatate [Tessalon Perles] 200 mg PO Q8HR #30 capsule 04/17/19 05/13/19 Unknown Rx Fluticasone/Salmeterol [Advair 1 puff IH BID #1 blst.w.dev 04/17/19 05/13/19 Unknown Rx 250-50 Diskus] Folic Acid [Folvite] 1 mg PO QDAY #30 tablet 04/17/19 05/13/19 Unknown Rx Furosemide [Lasix] 20 mg PO QDAY #30 tablet 04/17/19 05/13/19 Unknown Rx Ipratropium/Albuterol Sulfate 1 ampul IH TIDRT #120 ampul.neb 04/17/19 05/13/19 Unknown Rx [DUONEB *Not for PRN Use*] Nicotine [Habitrol] 14 mg TD QDAY #30 patch 04/17/19 05/13/19 Unknown Rx Prednisone [predniSONE 10 mg 10 mg PO .TAPER #1 tab.ds.pk 04/17/19 05/13/19 Unk nown Rx (6-Day Pack, 21 Tabs)] Temazepam [Restoril] 15 mg PO QHS PRN #7 capsule 04/17/19 05/13/19 Unknown Rx Thiamine [Vitamin B-1] 100 mg PO QDAY #30 tablet 04/17/19 05/13/19 Unknown Rx dilTIAZem [Cardizem] 60 mg PO Q6H #120 tablet 04/17/19 05/13/19 Unknown Rx oxyCODONE /ACETAMINOPHEN [Percocet 1 tab PO Q6H PRN #14 tablet 04/17/19 05/13/19 Unknown Rx 5/325 mg] oxyCODONE /ACETAMINOPHEN [Percocet 1 tab PO Q6H PRN #30 tablet 04/17/19 05/13/19 Unknown Rx 5/325 mg] Active Medications: Generic Name Dose Route Start Last Admin Trade Name Freq PRN Reason Stop Dose Admin Acetaminophen 650 mg 05/12/19 20:13 05/14/19 06:10 Tylenol PO 650 mg Q4H PRN Administration Pain MILD(1-3)/Fever >100.5/BOO Albuterol 2.5 mg 05/12/19 20:13 05/15/19 14:14 Proventil IH 2.5 mg Q4HRT PRN Administration Shortness Of Breath Amiodarone HCl 200 mg 05/13/19 10:00 05/15/19 13:35 Cordarone PO 200 mg DAILY FRANCISCO JAVIER Administration Arformoterol Tartrate 15 mcg 05/13/19 08:00 05/15/19 21:20 Brovana Nebu IH 15 mcg Q12HRT FRANCISCO JAVIER Administration Budesonide 0.5 mg 05/13/19 08:00 05/15/19 21:25 Pulmicort IH 0.5 mg Q12HRT FRANCISCO JAVIER Administration Diltiazem HCl 60 mg 05/12/19 21:00 05/16/19 02:35 Cardizem PO 60 mg Q6H FRANCISCO JAVIER Administration Enoxaparin Sodium 40 mg 05/14/19 10:00 05/15/19 09:47 Lovenox SUB-Q 40 mg QDAY@1000 FRANCISCO JAVIER Administration Folic Acid 1 mg 05/13/19 10:00 05/15/19 13:35 Folvite PO 1 mg QDAY FRANCISCO JAVIER Administration Furosemide 20 mg 05/13/19 10:00 05/15/19 13:36 Lasix PO 20 mg QDAY FRANCISCO JAVIER Administration Hydrocodone Bit/Homatropine Methylb 10 ml 05/13/19 07:15 Hydromet PO Q6H PRN Cough Cefepime HCl 2 gm in 100 mls @ 200 mls/hr 05/12/19 22:00 05/15/19 21:09 Maxipime/Ns 2 Gm/100 Ml IV 200 mls/hr Q8HR FRANCISCO JAVIER Administration Protocol Vancomycin HCl 1 gm in 250 mls @ 167.007 mls/hr 05/15/19 10:00 05/15/19 09:39 Vancomycin/Ns 1 Gm/250 Ml IV 167.007 mls/hr Q18H FRANCISCO JAVIER Administration Methylprednisolone Sodium Succinate 40 mg 05/13/19 14:00 05/15/19 21:08 Solu-Medrol IV 40 mg Q8HR FRANCISCO JAVIER Administration Nicotine 14 mg 05/13/19 10:00 05/15/19 09:47 Habitrol TD 14 mg QDAY FRANCISCO JAVIER Administration Ondansetron HCl 4 mg 05/12/19 20:13 Zofran IV Q8H PRN Nausea And Vomiting Oxycodone/Acetaminophen 1 tab 05/12/19 20:18 05/16/19 02:36 Percocet 5/325 PO 1 tab Q6H PRN Administration Pain, Moderate (4-6) Sodium Chloride 10 ml 05/12/19 22:00 05/15/19 21:09 Sodium Chloride Flush Syringe 10 Ml IV 10 ml BID FRANCISCO JAVIER Administration Sodium Chloride 10 ml 05/12/19 20:13 Sodium Chloride Flush Syringe 10 Ml IV PRN PRN LINE FLUSH Temazepam 15 mg 05/12/19 20:18 05/15/19 21:07 Restoril PO 15 mg QHS PRN Administration Sleep Thiamine HCl 100 mg 05/13/19 10:00 05/15/19 13:35 Vitamin B-1 PO 100 mg QDAY FRANCISCO JAVIER Administration
[2019-05-16] MEDS ORDERED: DILAUDID ONE (06:53)
[2019-05-16] MEDS: MAXIPIME/NS 2 GM/100 ML 2 GM/100 ML BAG IV SCH ×3 (08:21→22:25)
[2019-05-16] MEDS: CORDARONE PO SCH (09:32)
[2019-05-16] MEDS: LASIX PO SCH (09:32)
[2019-05-16] MEDS: VITAMIN B-1 PO SCH (09:32)
[2019-05-16] MEDS: FOLVITE PO SCH (09:32)
[2019-05-16] MEDS: HABITROL TD SCH (09:32)
[2019-05-16] MEDS: PULMICORT IH SCH ×2 (09:33→20:36)
[2019-05-16] MEDS: LOVENOX SUB-Q SCH (09:33)
[2019-05-16] MEDS: BROVANA NEBU IH SCH ×2 (09:33→20:36)
[2019-05-16] MEDS: SODIUM CHLORIDE FLUSH SYRINGE 10 ML IV SCH ×2 (09:33→22:27)
--- NOTE | 2019-05-16 13:50 | Progress Note ---
Assessment and Plan Patient weak and resting better today. Patient is on vapotherm FiO2 60% O2 saturation 96%. No acute respiratory distress. Leukocytosis present. Pt is afebrile. - Patient Problems (1) Acute on chronic respiratory failure with hypoxia and hypercapnia Current Visit: Yes Status: Acute Plan to address problem: O2 supplementation. Vapotherm FiO2 60%. Albuterol and Atrovent aerosol treatments. Continue IV Solumedrol. Continue Cefipime and Vancomycin. Continue Enoxaparin Recommend GI Prophylaxis (2) COPD (chronic obstructive pulmonary disease) Current Visit: Yes Status: Acute Qualifiers: Chronic bronchitis type: mixed simple and mucopurulent Plan to address problem: O2 supplementation. Vapotherm FiO2 60%. Albuterol and Atrovent aerosol treatments. Continue IV Solumedrol. Continue Cefipime and Vancomycin. Continue Enoxaparin Recommend GI Prophylaxis (3) Lung malignancy Current Visit: Yes Status: Acute Qualifiers: Laterality: right Plan to address problem: Management as per oncology (4) Pleural effusion Current Visit: No Status: Acute Plan to address problem: Ultrasound of the chest 05/16/19 reported moderate bilateral pleural effusions Subjective Date of service: 05/16/19 Principal diagnosis: lung ca Interval history: Patient weak and resting better today. Patient is on vapotherm FiO2 60% O2 saturation 96%. No acute respiratory distress. Leukocytosis present. Pt is afebr ile. Objective Vital Signs - 12hr 05/16/19 05/16/19 05/16/19 02:27 02:35 02:36 Temperature Pulse Rate 78 Pulse Rate [ Anterior Bilateral] Pulse Rate [ From Monitor] Pulse Rate [ None] Respiratory 20 Rate Respiratory Rate [Anterior Bilateral] Blood Pressure 136/85 O2 Sat by Pulse 93 Oximetry 05/16/19 05/16/19 05/16/19 03:00 04:00 06:57 Temperature 97.4 F L Pulse Rate 79 Pulse Rate [ Anterior Bilateral] Pulse Rate [ 79 From Monitor] Pulse Rate [ None] Respiratory 17 21 Rate Respiratory Rate [Anterior Bilateral] Blood Pressure O2 Sat by Pulse 97 Oximetry 05/16/19 05/16/19 05/16/19 08:00 08:30 09:33 Temperature 97.4 F L Pulse Rate 84 Pulse Rate [ 96 H Anterior Bilateral] Pulse Rate [ 85 From Monitor] Pulse Rate [ 85 None] Respiratory 22 Rate Respiratory 22 Rate [Anterior Bilateral] Blood Pressure 138/87 138/87 O2 Sat by Pulse 95 Oximetry 05/16/19 05/16/19 09:36 12:00 Temperature 97.4 F L Pulse Rate Pulse Rate [ Anterior Bilateral] Pulse Rate [ 93 H From Monitor] Pulse Rate [ 93 H None] Respiratory 22 Rate Respiratory Rate [Anterior Bilateral] Blood Pressure 146/88 O2 Sat by Pulse 94 95 Oximetry Constitutional: no acute distress, asleep, other (cachexia, chest wall tattoos) Eyes: non-icteric ENT: oropharynx dry Neck: supple, no lymphadenopathy, no JVD Effort: mildly labored Ascultation: Bilateral: diminished breath sounds (right lung), wheezes Cardiovascular: regular rate and rhythm Gastrointestinal: normoactive bowel sounds, soft, non-tender, non-distended Integumentary: normal Extremities: no cyanosis, no edema, pulses normal, no ischemia or petechiae Neurologic: normal mental status, non-focal exam, pupils equal and round, CN II- XII normal, motor strength normal and Psychiatric: anxious CBC and BMP: 05/15/19 05:20 05/13/19 23:15 ABG, PT/INR, D-dimer: ABG POC ABG pH 7.322 (7.35-7.45) L 05/13/19 11:04 POC ABG pCO2 55.6 (35-45) H 05/13/19 11:04 POC ABG pO2 68 (80-105) L 05/13/19 11:04 POC ABG HCO3 28.8 (22-26 mml/L) 05/13/19 11:04 POC ABG Total CO2 30 (23-27mmol/L) 05/13/19 11:04 POC ABG O2 Sat 91 05/13/19 11:04 PT/INR, D-dimer PT 14.6 Sec. (12.2-14.9) 05/15/19 05:20 INR 1.17 (0.87-1.13) H 05/15/19 05:20 Abnormal lab findings: Abnormal Labs 05/12/19 05/12/19 05/12/19 18:10 18:10 18:34 WBC 17.8 H RBC Hgb Hct MCV MCHC RDW 18.4 H Plt Count 579 H Lymph % (Auto) 6.0 L [place] % (Auto) Lymph # 1.1 L [place] # 1.1 H Seg Neutrophils % 87.2 H Seg Neutrophils # 15.5 H INR 1.14 H POC ABG pH POC ABG pCO2 POC ABG pO2 Potassium 5.2 H Chloride 96.3 L BUN 22 H Creatinine 0.4 L Glucose POC Glucose Alkaline Phosphatase 242 H CK-MB (CK-2) 7.6 H CK-MB (CK-2) Rel Index 11.8 H Albumin 2.8 L 05/13/19 05/13/19 05/13/19 08:43 09:36 11:04 WBC 18.9 H RBC 3.62 L Hgb 10.8 L Hct 34.8 L MCV 96 H MCHC 31 L RDW 19.0 H Plt Count 463 H Lymph % (Auto) 3.4 L [place] % (Auto) 7.4 H Lymph # 0.6 L [place] # 1.4 H Seg Neutrophils % 88.8 H Seg Neutrophils # 16.8 H INR POC ABG pH 7.322 L POC ABG pCO2 55.6 H POC ABG pO2 68 L Potassium Chloride BUN Creatinine Glucose POC Glucose 178 H Alkaline Phosphatase CK-MB (CK-2) CK-MB (CK-2) Rel Index Albumin 05/13/19 05/15/19 05/15/19 23:15 05:20 05:20 WBC 18.6 H RBC 3.60 L Hgb 10.9 L Hct 33.0 L MCV MCHC RDW 18.3 H Plt Count 468 H Lymph % (Auto) [place] % (Auto) Lymph # [place] # Seg Neutrophils % Seg Neutrophils # INR 1.17 H POC ABG pH POC ABG pCO2 POC ABG pO2 Potassium Chloride 97.7 L BUN 24 H Creatinine 0.5 L Glucose 206 H POC Glucose Alkaline Phosphatase 178 H CK-MB (CK-2) CK-MB (CK-2) Rel Index Albumin 2.4 L 05/15/19 23:47 WBC RBC Hgb Hct MCV MCHC RDW Plt Count Lymph % (Auto) [place] % (Auto) Lymph # [place] # Seg Neutrophils % Seg Neutrophils # INR POC ABG pH POC ABG pCO2 POC ABG pO2 Potassium Chloride BUN Creatinine Glucose POC Glucose 165 H Alkaline Phosphatase CK-MB (CK-2) CK-MB (CK-2) Rel Index Albumin Additional Studies: Ultrasound of the Chest 05/16/19: FINDINGS: Targeted transabdominal ultrasound was performed on both sides of the chest to evaluate for pleural effusion. A small right pleural effusion measures 307 cc's. There appear to be a few small septations within the right pleural effusion. A moderate left pleural effusion without septation measures 445 cc. IMPRESSION: Bilateral pleural effusions as described. Allied health notes reviewed: RT (Adjust FIO2 as needed. If any increasing work of breathing, BIPAP)
--- NOTE | 2019-05-16 14:32 | Ultrasound Report ---
ULTRASOUND CHEST HISTORY: Right pleural effusion. FINDINGS: Targeted transabdominal ultrasound was performed on both sides of the chest to evaluate for pleural effusion. A small right pleural effusion measures 307 cc's. There appear to be a few small s eptations within the right pleural effusion. A moderate left pleural effusion without septation measu res 445 cc. IMPRESSION: Bilateral pleural effusions as described. Signer Name: Andrzej Christopher Jr, MD Signed: 05/16/2019 2:27 PM Workstation Name: [id number]
--- NOTE | 2019-05-16 16:00 | Progress Note ---
Assessment and Plan Assessment and plan: 68 YO Male with Right Lung Adenocarcinoma, Severe Malnutrition,COPD, TB in 1986 S/P Full course therapy, S/P radiation therapy today. Pt states that he has experienced shortness of breath, fatigue, and progressive weakness over the past 1 week with worsening symptoms over the past 4 days, with concomitant worsening of symptoms after radiation therapy today. Pt was instructed by his Oncologist to seek further care. Pt transported to [facility] via private vehicle. Pt seen and evaluated in ED and found to have Bilateral Pneumonia complicated by SIRS, as well as Lung Maligancy. Pt counseled regarding poor prognosis. Pt requests aggressive medical therapy. Pt admitted to [facility] and initiated on Pneumonia Protocol for Healthcare Associated Pneumonia. Pt denies fever, chills, CP, Palpitations, Trauma, Hemoptysis, Skin Rash, Edema, or recent ill contacts. Prior Admission on 04/08/19 reviewed. All listed medication reconciled at time of admission. 30 minutes additional time dedicated to Advanced care planning, and discussion of goals of care. Chest xray: Lungs/Pleura: There is persistent complete opacification of the right hemithorax. Diffuse left lung interstitial opacities persist, these are slightly improved when compared with the prior exam. * PER IR "Patient was saturating 90% on a nonrebreather in mild respiratory distress with accessory muscle use. It is unclear if he could even tolerate the procedure. I performed a bedside ultrasound of his right pleural cavity which demonstrated numerous loculations making pleural catheter placement of limited benefit in addition to the mass in his right lung preventing expansion of the right lung. I tried to explain this to him, but the patient did not want to listen to this explanation, and therefore I contacted his dental instrument maker to explain why he was a suboptimal patient for this procedure. Patient returned to the floor." * I have explained to the patient the gravity and severity of his condition. I have also discussed with the dental instrument maker and the patients family friend as agreed with the patient. Acute Respiratory failure with Hypoxia- Now on venturi mask Complete Opacification of right hemithorax secondary to Non small cell lung ca and loculated fluids Pneumonia likely gram negative Non small cell lung CA- diagnose 03/2019 SIRS with no organ dysfunction Severe Protein calorie malnutrition with cachexia COPD A fib Hyperkalemia Agitation/Anxiety Hx ot ETOH abuse remote history of TB diagnosis 1986, treated for 6 months-negative AFB 4 in March 2019 Plan Continue supportive care Hospice discussed and patient will like to speak to Rep Consult Pulmonary and Oncology- INPUT NOTED Continue IMCU care, patient with rising WBC, Refusing some labs and also still with shortness of breath with minimal exertion Ok to eat but monitor for aspiration Continue oxygen therapy, nebs patient definitely appears to be only amendable to palliative care but patient refused. Continue Abx Advance care planning DVT prophylaxis Current Visit: Yes Status: Acute Plan to address problem: SCD to BLE while in bed, Pt ambulatory at this time. Patient agreeable to talk with hospice people. History Interval history: Patient was seen and evaluated this morning. Patient's oxygen requirement is very high but patient said he will sign AMA. Hospitalist Physical - Physical exam Narrative exam: Narrative exam: General appearance: Present: cachectic, other (moderate distress)-high flow oxygen nc - EENT Eyes: Present: PERRL, EOM intact ENT: hearing intact, clear oral mucosa - Neck Neck: Present: supple, normal ROM - Respiratory Respiratory effort: labored, accessory muscle use Respiratory: bilateral: diminished - Extremities Extremities: no ischemia, pulses intact, pulses symmetrical, No edema, Full ROM Peripheral Pulses: within normal limits - Abdominal General gastrointestinal: soft, non-tender, non-distended, normal bowel sounds - Integumentary Integumentary: Present: warm, dry (tattoo) - Psychiatric Psychiatric: appropriate mood/affect - Neurologic Neurologic: CNII-XII intact, moves all extremities - Allied Health Allied health notes reviewed: nursing - Constitutional Vitals: Temp Pulse Resp BP Pulse Ox 97.4 F L 94 H 22 147/87 95 05/16/19 12:00 05/16/19 14:28 05/16/19 12:00 05/16/19 14:28 05/16/19 12:00 General appearance: Present: no acute distress Results - Labs CBC & Chem 7: 05/15/19 05:20 05/13/19 23:15 Labs: Laboratory Last Values WBC 18.6 K/mm3 (4.5-11.0) H 05/15/19 05:20 RBC 3.60 M/mm3 (3.65-5.03) L 05/15/19 05:20 Hgb 10.9 gm/dl (11.8-15.2) L 05/15/19 05:20 Hct 33.0 % (35.5-45.6) L 05/15/19 05:20 MCV 92 fl (84-94) 05/15/19 05:20 MCH 30 pg (28-32) 05/15/19 05:20 MCHC 33 % (32-34) 05/15/19 05:20 RDW 18.3 % (13.2-15.2) H 05/15/19 05:20 Plt Count 468 K/mm3 (140-440) H 05/15/19 05:20 Lymph % (Auto) 3.4 % (13.4-35.0) L 05/13/19 09:36 [place] % (Auto) 7.4 % (0.0-7.3) H 05/13/19 09:36 Eos % (Auto) 0.3 % (0.0-4.3) 05/13/19 09:36 Baso % (Auto) 0.1 % (0.0-1.8) 05/13/19 09:36 Lymph # 0.6 K/mm3 (1.2-5.4) L 05/13/19 09:36 Mobile # 1.4 K/mm3 (0.0-0.8) H 05/13/19 09:36 Eos # 0.1 K/mm3 (0.0-0.4) 05/13/19 09:36 Baso # 0.0 K/mm3 (0.0-0.1) 05/13/19 09:36 Seg Neutrophils % 88.8 % (40.0-70.0) H 05/13/19 09:36 Seg Neutrophils # 16.8 K/mm3 (1.8-7.7) H 05/13/19 09:36 PT 14.6 Sec. (12.2-14.9) 05/15/19 05:20 INR 1.17 (0.87-1.13) H 05/15/19 05:20 APTT 32.6 Sec. (24.2-36.6) 05/12/19 18:10 POC ABG pH 7.322 (7.35-7.45) L 05/13/19 11:04 POC ABG pCO2 55.6 (35-45) H 05/13/19 11:04 POC ABG pO2 68 (80-105) L 05/13/19 11:04 POC ABG HCO3 28.8 (22-26 mml/L) 05/13/19 11:04 POC ABG Total CO2 30 (23-27mmol/L) 05/13/19 11:04 POC ABG O2 Sat 91 05/13/19 11:04 POC ABG Base Excess 3 ((-2) - (+3)mmol/L) 05/13/19 11:04 32 % 05/13/19 11:04 Sodium 138 mmol/L (137-145) 05/13/19 23:15 Potassium 4.9 mmol/L (3.6-5.0) 05/13/19 23:15 Chloride 97.7 mmol/L (98-107) L 05/13/19 23:15 Carbon Dioxide 30 mmol/L (22-30) 05/13/19 23:15 15 mmol/L 05/13/19 23:15 BUN 24 mg/dL (9-20) H 05/13/19 23:15 0.5 mg/dL (0.8-1.5) L 05/13/19 23:15 Estimated GFR > 60 ml/min 05/13/19 23:15 48 % 05/13/19 23:15 Glucose 206 mg/dL (75-100) H 05/13/19 23:15 POC Glucose 165 (70-105) H 05/15/19 23:47 Calcium 9.1 mg/dL (8.4-10.2) 05/13/19 23:15 0.30 mg/dL (0.1-1.2) 05/13/19 23:15 AST 14 units/L (5-40) 05/13/19 23:15 ALT 18 units/L (7-56) 05/13/19 23:15 178 units/L (35-129) H 05/13/19 23:15 64 units/L (55-170) 05/12/19 18:34 CK-MB (CK-2) 7.6 ng/mL (0.0-4.0) H 05/12/19 18:34 CK-MB (CK-2) Rel Index 11.8 (0-4) H 05/12/19 18:34 < 0.010 ng/mL (0.00-0.029) 08/09/19 18:10 NT-Pro-B Natriuret Pep 878.4 pg/mL (0-900) 05/12/19 18:10 7.6 g/dL (6.3-8.2) 05/13/19 23:15 2.4 g/dL (3.9-5) L 05/13/19 23:15 0.5 % 05/13/19 23:15 Active Medications - Current Medications Current Medications: Generic Name Dose Route Start Last Admin Trade Name Freq PRN Reason Stop Dose Admin Acetaminophen 650 mg 05/12/19 20:13 05/14/19 06:10 Tylenol PO 650 mg Q4H PRN Administration Pain MILD(1-3)/Fever >100.5/BOO Albuterol 2.5 mg 05/12/19 20:13 05/15/19 14:14 Proventil IH 2.5 mg Q4HRT PRN Administration Shortness Of Breath Amiodarone HCl 200 mg 05/13/19 10:00 05/16/19 09:32 Cordarone PO 200 mg DAILY FRANCISCO JAVIER Administration Arformoterol Tartrate 15 mcg 05/13/19 08:00 05/16/19 09:33 Brovana Nebu IH 15 mcg Q12HRT FRANCISCO JAVIER Administration Budesonide 0.5 mg 05/13/19 08:00 05/16/19 09:33 Pulmicort IH 0.5 mg Q12HRT FRANCISCO JAVIER Administration Diltiazem HCl 60 mg 05/12/19 21:00 05/16/19 14:28 Cardizem PO 60 mg Q6H FRANCISCO JAVIER Administration Enoxaparin Sodium 40 mg 05/14/19 10:00 05/16/19 09:33 Lovenox SUB-Q 40 mg QDAY@1000 FRANCISCO JAVIER Administration Folic Acid 1 mg 05/13/19 10:00 05/16/19 09:32 Folvite PO 1 mg QDAY FRANCISCO JAVIER Administration Furosemide 20 mg 05/13/19 10:00 05/16/19 09:32 Lasix PO 20 mg QDAY FRANCISCO JAVIER Administration Hydrocodone Bit/Homatropine Methylb 10 ml 05/13/19 07:15 Hydromet PO Q6H PRN Cough Cefepime HCl 2 gm in 100 mls @ 200 mls/hr 05/12/19 22:00 05/16/19 14:23 Maxipime/Ns 2 Gm/100 Ml IV 200 mls/hr Q8HR FRANCISCO JAVIER Administration Protocol Vancomycin HCl 1 gm in 250 mls @ 167.007 mls/hr 05/15/19 10:00 05/16/19 06:19 Vancomycin/Ns 1 Gm/250 Ml IV 167.007 mls/hr Q18H FRANCISCO JAVIER Administration Methylprednisolone Sodium Succinate 40 mg 05/13/19 14:00 05/16/19 14:23 Solu-Medrol IV 40 mg Q8HR FRANCISCO JAVIER Administration Nicotine 14 mg 05/13/19 10:00 05/16/19 09:32 Habitrol TD 14 mg QDAY FRANCISCO JAVIER Administration Ondansetron HCl 4 mg 05/12/19 20:13 Zofran IV Q8H PRN Nausea And Vomiting Oxycodone/Acetaminophen 1 tab 05/12/19 20:18 05/16/19 14:28 Percocet 5/325 PO 1 tab Q6H PRN Administration Pain, Moderate (4-6) Sodium Chloride 10 ml 05/12/19 22:00 05/16/19 09:33 Sodium Chloride Flush Syringe 10 Ml IV 10 ml BID FRANCISCO JAVIER Administration Sodium Chloride 10 ml 05/12/19 20:13 Sodium Chloride Flush Syringe 10 Ml IV PRN PRN LINE FLUSH Temazepam 15 mg 05/12/19 20:18 05/15/19 21:07 Restoril PO 15 mg QHS PRN Administration Sleep Thiamine HCl 100 mg 05/13/19 10:00 05/16/19 09:32 Vitamin B-1 PO 100 mg QDAY FRANCISCO JAVIER Administration
[2019-05-16] MEDS: RESTORIL PO PRN (20:44)
[2019-05-17] MEDS: VANCOMYCIN/NS 1 GM/250 ML 1 GM/250 ML BAG IV SCH (00:41)
[2019-05-17] MEDS: PERCOCET 5/325 PO PRN ×4 (02:26→20:41)
[2019-05-17] MEDS: SOLU-Medrol IV SCH ×3 (05:31→22:36)
[2019-05-17] MEDS: MAXIPIME/NS 2 GM/100 ML 2 GM/100 ML BAG IV SCH ×2 (05:31→14:30)
[2019-05-17] MEDS: CARDIZEM PO SCH ×4 (05:33→20:51)
[2019-05-17] MEDS: PULMICORT IH SCH ×2 (08:01→19:33)
[2019-05-17] MEDS: BROVANA NEBU IH SCH ×2 (08:01→19:33)
--- NOTE | 2019-05-17 08:58 | Hem/Onc Progress Note ---
Assessment and Plan 1. Lung cancer. NSCLC 2. h/o Short of breath. 3. h/o Right lung opacification. 4. The patient recently started on radiation. 5. Being treated for pneumonia. 6. Malnutrition. 7. Chronic obstructive pulmonary disease. 8. The patient on steroids and antibiotics. 9. The patient will need outpatient followup. I will follow the patient during inpatient stay. I communicated with dr medina about pt thoracentesis was attempted pt needs to make apt as OP for more IX and then OP Rx XRT - by dr medina ? hospice appropriate - if pt disagrees - OP follow up - Patient Problems (1) Lung cancer Current Visit: No Status: Chronic Qualifiers: Laterality: right Lung location: overlapping sites Qualified Code(s): C34.81 - Malignant neoplasm of overlapping sites of right bronchus and lung Subjective Date of service: 05/17/19 Principal diagnosis: lung ca Interval history: on o2 Objective - Exam Narrative Exam: Pain - none General appearance SOB Performance status complete dependence Eyes - no icterus ENT no thrush LNs cervical not palpable Neck - normal ROM Respiratory SOB Breath sounds - decreased air entry CVS S1 S2 + Extremities normal temperature General GI Soft Rectal deferred male - deferred Skin warm Musculoskeletal moving normal Neurologically no focal deficit - Constitutional Vitals: Last Vital Signs Temp 97.6 F 05/17/19 08:00 Pulse 100 H 05/17/19 08:01 Resp 16 05/17/19 08:01 BP 134/86 05/17/19 05:33 Pulse Ox 95 05/17/19 08:05 - Labs Lab Results: Laboratory Results - last 24 hr 05/16/19 22:38 Vancomycin Trough 5.2 Medications & Allergies - Medications Allergies/Adverse Reactions: Allergies No Known Allergies Allergy (Verified 05/12/19 17:25) Home Medications: Home Medications Medication Instructions Recorded Confirmed Last Taken Type ALBUTEROL Inhaler (OR & NICU) 2 puff IH QID PRN 30 Days #1 pump 04/17/19 05/13/19 Unknown Rx [ProAir HFA Inhaler] Amiodarone [Cordarone 200 MG TAB] 200 mg PO DAILY #30 tablet 04/17/19 05/13/19 Unknown Rx Benzonatate [Tessalon Perles] 200 mg PO Q8HR #30 capsule 04/17/19 05/13/19 Unknown Rx Fluticasone/Salmeterol [Advair 1 puff IH BID #1 blst.w.dev 04/17/19 05/13/19 Unknown Rx 250-50 Diskus] Folic Acid [Folvite] 1 mg PO QDAY #30 tablet 04/17/19 05/13/19 Unknown Rx Furosemide [Lasix] 20 mg PO QDAY #30 tablet 04/17/19 05/13/19 Unknown Rx Ipratropium/Albuterol Sulfate 1 ampul IH TIDRT #120 ampul.neb 04/17/19 05/13/19 Unknown Rx [DUONEB *Not for PRN Use*] Nicotine [Habitrol] 14 mg TD QDAY #30 patch 04/17/19 05/13/19 Unknown Rx Prednisone [predniSONE 10 mg 10 mg PO .TAPER #1 tab.ds.pk 04/17/19 05/13/19 Unknown Rx (6-Day Pack, 21 Tabs)] Temazepam [Restoril] 15 mg PO QHS PRN #7 capsule 04/17/19 05/13/19 Unknown Rx Thiamine [Vitamin B-1] 100 mg PO QDAY #30 tablet 04/17/19 05/13/19 Unknown Rx dilTIAZem [Cardizem] 60 mg PO Q6H #120 tablet 04/17/19 05/13/19 Unknown Rx oxyCODONE /ACETAMINOPHEN [Percocet 1 tab PO Q6H PRN #14 tablet 04/17/19 05/13/19 Unknown Rx 5/325 mg] oxyCODONE /ACETAMINOPHEN [Percocet 1 tab PO Q6H PRN #30 tablet 04/17/19 05/13/19 Unknown Rx 5/325 mg] Active Medications: Generic Name Dose Route Start Last Admin Trade Name Freq PRN Reason Stop Dose Admin Acetaminophen 650 mg 05/12/19 20:13 05/14/19 06:10 Tylenol PO 650 mg Q4H PRN Administration Pain MILD(1-3)/Fever >100.5/BOO Albuterol 2.5 mg 05/12/19 20:13 05/15/19 14:14 Proventil IH 2.5 mg Q4HRT PRN Administration Shortness Of Breath Amiodarone HCl 200 mg 05/13/19 10:00 05/16/19 09:32 Cordarone PO 200 mg DAILY FRANCISCO JAVIER Administration Arformoterol Tartrate 15 mcg 05/13/19 08:00 05/17/19 08:01 Brovana Nebu IH 15 mcg Q12HRT FRANCISCO JAVIER Administration Budesonide 0.5 mg 05/13/19 08:00 05/17/19 08:01 Pulmicort IH 0.5 mg Q12HRT FRANCISCO JAVIER Administration Diltiazem HCl 60 mg 05/12/19 21:00 05/17/19 05:33 Cardizem PO 60 mg Q6H FRANCISCO JAVIER Administration Enoxaparin Sodium 40 mg 05/14/19 10:00 05/16/19 09:33 Lovenox SUB-Q 40 mg QDAY@1000 FRANCISCO JAVIER Administration Folic Acid 1 mg 05/13/19 10:00 05/16/19 09:32 Folvite PO 1 mg QDAY FRANCISCO JAVIER Administration Furosemide 20 mg 05/13/19 10:00 05/16/19 09:32 Lasix PO 20 mg QDAY FRANCISCO JAVIER Administration Hydrocodone Bit/Homatropine Methylb 10 ml 05/13/19 07:15 Hydromet PO Q6H PRN Cough Cefepime HCl 2 gm in 100 mls @ 200 mls/hr 05/12/19 22:00 05/17/19 05:31 Maxipime/Ns 2 Gm/100 Ml IV 200 mls/hr Q8HR FRANCISCO JAVIER Administration Protocol Vancomycin HCl 1 gm in 250 mls @ 167.007 mls/hr 05/15/19 10:00 05/17/19 00:41 Vancomycin/Ns 1 Gm/250 Ml IV 167.007 mls/hr Q18H FRANCISCO JAVIER Administration Methylprednisolone Sodium Succinate 40 mg 05/13/19 14:00 05/17/19 05:31 Solu-Medrol IV 40 mg Q8HR FRANCISCO JAVIER Administration Nicotine 14 mg 05/13/19 10:00 05/16/19 09:32 Habitrol TD 14 mg QDAY FRANCISCO JAVIER Administration Ondansetron HCl 4 mg 05/12/19 20:13 Zofran IV Q8H PRN Nausea And Vomiting Oxycodone/Acetaminophen 1 tab 05/12/19 20:18 05/17/19 08:46 Percocet 5/325 PO 1 tab Q6H PRN Administration Pain, Moderate (4-6) Sodium Chloride 10 ml 05/12/19 22:00 05/16/19 22:27 Sodium Chloride Flush Syringe 10 Ml IV 10 ml BID FRANCISCO JAVIER Administration Sodium Chloride 10 ml 05/12/19 20:13 Sodium Chloride Flush Syringe 10 Ml IV PRN PRN LINE FLUSH Temazepam 15 mg 05/12/19 20:18 05/16/19 20:44 Restoril PO 15 mg QHS PRN Administration Sleep Thiamine HCl 100 mg 05/13/19 10:00 05/16/19 09:32 Vitamin B-1 PO 100 mg QDAY FRANCISCO JAVIER Administration
[2019-05-17] MEDS: LOVENOX SUB-Q SCH (10:35)
[2019-05-17] MEDS: VITAMIN B-1 PO SCH (10:36)
[2019-05-17] MEDS: HABITROL TD SCH (10:36)
[2019-05-17] MEDS: FOLVITE PO SCH (10:36)
[2019-05-17] MEDS: LASIX PO SCH (10:36)
[2019-05-17] MEDS: CORDARONE PO SCH (10:36)
[2019-05-17] MEDS: SODIUM CHLORIDE FLUSH SYRINGE 10 ML IV SCH ×2 (10:37→22:37)
--- NOTE | 2019-05-17 13:46 | Progress Note ---
Assessment and Plan Patient weak and resting on vapotherm FiO2 60% O2 saturation 94%. No acute respiratory distress. Leukocytosis present. Pt is afebrile. Ultrasound of chest reported bilateral moderate effusions. - Patient Problems (1) Acute on chronic respiratory failure with hypoxia and hypercapnia Current Visit: Yes Status: Acute Plan to address problem: O2 supplementation. Vapotherm FiO2 60%. Albuterol and Atrovent aerosol treatments. Continue IV Solumedrol. Continue Cefipime . Continue Enoxaparin Recommend GI Prophylaxis (2) COPD (chronic obstructive pulmonary disease) Current Visit: Yes Status: Acute Qualifiers: Chronic bronchitis type: mixed simple and mucopurulent Plan to address problem: O2 supplementation. Vapotherm FiO2 60%. Albuterol and Atrovent aerosol treatments. Continue IV Solumedrol. Continue Cefipime . Continue Enoxaparin Recommend GI Prophylaxis (3) Lung malignancy Current Visit: Yes Status: Acute Qualifiers: Laterality: right Plan to address problem: Management as per oncology (4) Pleural effusion Current Visit: No Status: Acute Plan to address problem: Ultrasound of the chest 05/16/19 reported moderate bilateral pleural effusions Patient not in acute distress for thoracentesis. Subjective Date of service: 05/17/19 Principal diagnosis: lung ca Interval history: Patient weak and resting on vapotherm FiO2 60% O2 saturation 94%. No acute respiratory distress. Leukocytosis present. Pt is afebrile. Ultrasound of chest reported bilateral moderate effusions. Objective Vital Signs - 12hr 05/17/19 05/17/19 05/17/19 01:51 02:45 03:11 Temperature Pulse Rate 80 79 Pulse Rate [ Anterior Bilateral] Pulse Rate [ From Monitor] Respiratory 17 12 Rate Respiratory Rate [Anterior Bilateral] Blood Pressure 129/76 154/89 O2 Sat by Pulse 95 94 97 Oximetry 05/17/19 05/17/19 05/17/19 03:21 03:31 03:41 Temperature Pulse Rate 80 90 79 Pulse Rate [ Anterior Bilateral] Pulse Rate [ From Monitor] Respiratory 15 16 13 Rate Respiratory Rate [Anterior Bilateral] Blood Pressure 154/89 154/89 154/89 O2 Sat by Pulse 96 94 95 Oximetry 05/17/19 05/17/19 05/17/19 03:51 04:00 04:11 Temperature Pulse Rate 81 79 80 Pulse Rate [ Anterior Bilateral] Pulse Rate [ From Monitor] Respiratory 18 15 15 Rate Respiratory Rate [Anterior Bilateral] Blood Pressure 154/89 150/89 150/89 O2 Sat by Pulse 96 97 92 Oximetry 05/17/19 05/17/19 05/17/19 04:18 04:21 04:31 Temperature 97.4 F L Pulse Rate 79 81 Pulse Rate [ Anterior Bilateral] Pulse Rate [ From Monitor] Respiratory 16 12 Rate Respiratory Rate [Anterior Bilateral] Blood Pressure 150/89 150/89 O2 Sat by Pulse 95 95 Oximetry 05/17/19 05/17/19 05/17/19 04:41 04:51 05:00 Temperature Pulse Rate 86 88 83 Pulse Rate [ Anterior Bilateral] Pulse Rate [ From Monitor] Respiratory 16 16 15 Rate Respiratory Rate [Anterior Bilateral] Blood Pressure 150/89 150/89 134/86 O2 Sat by Pulse 95 96 95 Oximetry 05/17/19 05/17/19 05/17/19 05:11 05:21 05:31 Temperature Pulse Rate 82 82 83 Pulse Rate [ Anterior Bilateral] Pulse Rate [ From Monitor] Respiratory 15 13 15 Rate Respiratory Rate [Anterior Bilateral] Blood Pressure 134/86 134/86 134/86 O2 Sat by Pulse 96 96 94 Oximetry 05/17/19 05/17/19 05/17/19 05:33 05:41 05:51 Temperature Pulse Rate 86 86 81 Pulse Rate [ Anterior Bilateral] Pulse Rate [ From Monitor] Respiratory 13 15 Rate Respiratory Rate [Anterior Bilateral] Blood Pressure 134/86 134/86 134/86 O2 Sat by Pulse 96 95 Oximetry 05/17/19 05/17/19 05/17/19 06:00 06:11 06:21 Temperature Pulse Rate 83 88 84 Pulse Rate [ Anterior Bilateral] Pulse Rate [ From Monitor] Respiratory 13 18 13 Rate Respiratory Rate [Anterior Bilateral] Blood Pressure 151/88 151/88 151/88 O2 Sat by Pulse 95 95 95 Oximetry 05/17/19 05/17/19 05/17/19 06:31 06:41 06:51 Temperature Pulse Rate 91 H 86 89 Pulse Rate [ Anterior Bilateral] Pulse Rate [ From Monitor] Respiratory 21 16 17 Rate Respiratory Rate [Anterior Bilateral] Blood Pressure 151/88 151/88 151/88 O2 Sat by Pulse 96 94 94 Oximetry 05/17/19 05/17/19 05/17/19 07:00 07:11 07:21 Temperature Pulse Rate 90 86 96 H Pulse Rate [ Anterior Bilateral] Pulse Rate [ From Monitor] Respiratory 18 12 21 Rate Respiratory Rate [Anterior Bilateral] Blood Pressure 154/91 154/91 154/91 O2 Sat by Pulse 95 95 95 Oximetry 05/17/19 05/17/19 05/17/19 07:31 07:41 07:51 Temperature Pulse Rate 90 88 89 Pulse Rate [ Anterior Bilateral] Pulse Rate [ From Monitor] Respiratory 15 14 22 Rate Respiratory Rate [Anterior Bilateral] Blood Pressure 154/91 154/91 154/91 O2 Sat by Pulse 95 95 95 Oximetry 05/17/19 05/17/19 05/17/19 08:00 08:01 08:05 Temperature 97.6 F Pulse Rate 90 Pulse Rate [ 100 H Anterior Bilateral] Pulse Rate [ 86 From Monitor] Respiratory 17 Rate Respiratory 16 Rate [Anterior Bilateral] Blood Pressure 150/90 O2 Sat by Pulse 96 95 Oximetry 05/17/19 05/17/19 05/17/19 08:11 08:21 08:31 Temperature Pulse Rate 91 H 97 H 95 H Pulse Rate [ Anterior Bilateral] Pulse Rate [ From Monitor] Respiratory 22 18 19 Rate Respiratory Rate [Anterior Bilateral] Blood Pressure 150/90 150/90 150/90 O2 Sat by Pulse 97 94 94 Oximetry 05/17/19 05/17/19 05/17/19 08:41 08:51 09:00 Temperature Pulse Rate 95 H 101 H 103 H Pulse Rate [ Anterior Bilateral] Pulse Rate [ From Monitor] Respiratory 28 H 20 20 Rate Respiratory Rate [Anterior Bilateral] Blood Pressure 150/90 150/90 164/92 O2 Sat by Pulse 96 91 91 Oximetry 05/17/19 05/17/19 05/17/19 09:11 09:21 09:31 Temperature Pulse Rate 99 H 101 H 101 H Pulse Rate [ Anterior Bilateral] Pulse Rate [ From Monitor] Respiratory 22 25 H 26 H Rate Respiratory Rate [Anterior Bilateral] Blood Pressure 164/92 164/92 164/92 O2 Sat by Pulse 92 92 92 Oximetry 05/17/19 05/17/19 05/17/19 09:41 09:51 10:00 Temperature Pulse Rate 102 H 102 H 96 H Pulse Rate [ Anterior Bilateral] Pulse Rate [ From Monitor] Respiratory 24 17 21 Rate Respiratory Rate [Anterior Bilateral] Blood Pressure 164/92 164/92 144/86 O2 Sat by Pulse 92 92 93 Oximetry 05/17/19 05/17/1919 10:11 10:21 10:31 Temperature Pulse Rate 95 H 96 H 93 H Pulse Rate [ Anterior Bilateral] Pulse Rate [ From Monitor] Respiratory 14 18 17 Rate Respiratory Rate [Anterior Bilateral] Blood Pressure 144/86 144/86 144/86 O2 Sat by Pulse 95 95 96 Oximetry 05/17/19 05/17/19 05/17/19 10:41 10:43 10:51 Temperature Pulse Rate 99 H 96 H 97 H Pulse Rate [ Anterior Bilateral] Pulse Rate [ From Monitor] Respiratory 20 16 Rate Respiratory Rate [Anterior Bilateral] Blood Pressure 144/86 144/86 144/86 O2 Sat by Pulse 95 94 Oximetry 05/17/19 05/17/19 05/17/19 11:00 11:11 11:21 Temperature Pulse Rate 99 H 96 H 95 H Pulse Rate [ Anterior Bilateral] Pulse Rate [ From Monitor] Respiratory 20 19 20 Rate Respiratory Rate [Anterior Bilateral] Blood Pressure 146/84 146/84 146/84 O2 Sat by Pulse 94 94 94 Oximetry 05/17/19 05/17/19 05/17/19 11:31 11:41 11:51 Temperature Pulse Rate 94 H 96 H 93 H Pulse Rate [ Anterior Bilateral] Pulse Rate [ From Monitor] Respiratory 17 17 15 Rate Respiratory Rate [Anterior Bilateral] Blood Pressure 146/84 146/84 146/84 O2 Sat by Pulse 94 95 94 Oximetry 05/17/19 05/17/19 05/17/19 12:00 12:11 12:21 Temperature 97.6 F Pulse Rate 87 103 H 98 H Pulse Rate [ Anterior Bilateral] Pulse Rate [ From Monitor] Respiratory 13 30 H 22 Rate Respiratory Rate [Anterior Bilateral] Blood Pressure 164/102 164/102 164/102 O2 Sat by Pulse 94 91 93 Oximetry 05/17/19 05/17/19 05/17/19 12:31 12:41 12:51 Temperature Pulse Rate 95 H 91 H 93 H Pulse Rate [ Anterior Bilateral] Pulse Rate [ From Monitor] Respiratory 22 22 26 H Rate Respiratory Rate [Anterior Bilateral] Blood Pressure 164/102 164/102 164/102 O2 Sat by Pulse 96 96 97 Oximetry 05/17/19 13:00 Temperature Pulse Rate 89 Pulse Rate [ Anterior Bilateral] Pulse Rate [ From Monitor] Respiratory 20 Rate Respiratory Rate [Anterior Bilateral] Blood Pressure 143/88 O2 Sat by Pulse 96 Oximetry Constitutional: no acute distress, asleep, other (cachexia, chest wall tattoos) Eyes: non-icteric ENT: oropharynx dry Neck: supple, no lymphadenopathy, no JVD Effort: mildly labored Ascultation: Bilateral: diminished breath sounds (right lung), wheezes Cardiovascular: regular rate and rhythm Gastrointestinal: normoactive bowel sounds, soft, non-tender, non-distended Integumentary: normal Extremities: no cyanosis, no edema, pulses normal, no ischemia or petechiae Neurologic: normal mental status, non-focal exam, pupils equal and round, CN II- XII normal, motor strength normal and Psychiatric: anxious CBC and BMP: 05/15/19 05:20 05/13/19 23:15 ABG, PT/INR, D-dimer: ABG POC ABG pH 7.322 (7.35-7.45) L 05/13/19 11:04 POC ABG pCO2 55.6 (35-45) H 05/13/19 11:04 POC ABG pO2 68 (80-105) L 05/13/19 11:04 POC ABG HCO3 28.8 (22-26 mml/L) 05/13/19 11:04 POC ABG Total CO2 30 (23-27mmol/L) 05/13/19 11:04 POC ABG O2 Sat 91 05/13/19 11:04 PT/INR, D-dimer PT 14.6 Sec. (12.2-14.9) 05/15/19 05:20 INR 1.17 (0.87-1.13) H 05/15/19 05:20 Abnormal lab findings: Abnormal Labs 05/12/19 05/12/19 05/12/19 18:10 18:10 18:34 WBC 17.8 H RBC Hgb Hct MCV MCHC RDW 18.4 H Plt Count 579 H Lymph % (Auto) 6.0 L [place] % (Auto) Lymph # 1.1 L [place] # 1.1 H Seg Neutrophils % 87.2 H Seg Neutrophils # 15.5 H INR 1.14 H POC ABG pH POC ABG pCO2 POC ABG pO2 Potassium 5.2 H Chloride 96.3 L BUN 22 H Creatinine 0.4 L Glucose POC Glucose Alkaline Phosphatase 242 H CK-MB (CK-2) 7.6 H CK-MB (CK-2) Rel Index 11.8 H Albumin 2.8 L 05/13/19 05/13/19 05/13/19 08:43 09:36 11:04 WBC 18.9 H RBC 3.62 L Hgb 10.8 L Hct 34.8 L MCV 96 H MCHC 31 L RDW 19.0 H Plt Count 463 H Lymph % (Auto) 3.4 L [place] % (Auto) 7.4 H Lymph # 0.6 L [place] # 1.4 H Seg Neutrophils % 88.8 H Seg Neutrophils # 16.8 H INR POC ABG pH 7.322 L POC ABG pCO2 55.6 H POC ABG pO2 68 L Potassium Chloride BUN Creatinine Glucose POC Glucose 178 H Alkaline Phosphatase CK-MB (CK-2) CK-MB (CK-2) Rel Index Albumin 05/13/19 05/15/19 05/15/19 23:15 05:20 05:20 WBC 18.6 H RBC 3.60 L Hgb 10.9 L Hct 33.0 L MCV MCHC RDW 18.3 H Plt Count 468 H Lymph % (Auto) [place] % (Auto) Lymph # [place] # Seg Neutrophils % Seg Neutrophils # INR 1.17 H POC ABG pH POC ABG pCO2 POC ABG pO2 Potassium Chloride 97.7 L BUN 24 H Creatinine 0.5 L Glucose 206 H POC Glucose Alkaline Phosphatase 178 H CK-MB (CK-2) CK-MB (CK-2) Rel Index Albumin 2.4 L 05/15/19 23:47 WBC RBC Hgb Hct MCV MCHC RDW Plt Count Lymph % (Auto) [place] % (Auto) Lymph # [place] # Seg Neutrophils % Seg Neutrophils # INR POC ABG pH POC ABG pCO2 POC ABG pO2 Potassium Chloride BUN Creatinine Glucose POC Glucose 165 H Alkaline Phosphatase CK-MB (CK-2) CK-MB (CK-2) Rel Index Albumin Allied health notes reviewed: RT (Adjust FIO2 as needed. If any increasing work of breathing, BIPAP)
--- NOTE | 2019-05-17 17:08 | Progress Note ---
Assessment and Plan Assessment and plan: 68 YO Male with Right Lung Adenocarcinoma, Severe Malnutrition,COPD, TB in 1986 S/P Full course therapy, S/P radiation therapy today. Pt states that he has experienced shortness of breath, fatigue, and progressive weakness over the past 1 week with worsening symptoms over the past 4 days, with concomitant worsening of symptoms after radiation therapy today. Pt was instructed by his Oncologist to seek further care. Pt transported to [facility] via private vehicle. Pt seen and evaluated in ED and found to have Bilateral Pneumonia complicated by SIRS, as well as Lung Maligancy. Pt counseled regarding poor prognosis. Pt requests aggressive medical therapy. Pt admitted to [facility] and initiated on Pneumonia Protocol for Healthcare Associated Pneumonia. Pt denies fever, chills, CP, Palpitations, Trauma, Hemoptysis, Skin Rash, Edema, or recent ill contacts. Prior Admission on 04/08/19 reviewed. All listed medication reconciled at time of admission. 30 minutes additional time dedicated to Advanced care planning, and discussion of goals of care. Chest xray: Lungs/Pleura: There is persistent complete opacification of the right hemithorax. Diffuse left lung interstitial opacities persist, these are slightly improved when compared with the prior exam. * PER IR "Patient was saturating 90% on a nonrebreather in mild respiratory distress with accessory muscle use. It is unclear if he could even tolerate the procedure. I performed a bedside ultrasound of his right pleural cavity which demonstrated numerous loculations making pleural catheter placement of limited benefit in addition to the mass in his right lung preventing expansion of the right lung. I tried to explain this to him, but the patient did not want to listen to this explanation, and therefore I contacted his station superintendent to explain why he was a suboptimal patient for this procedure. Patient returned to the floor." * I have explained to the patient the gravity and severity of his condition. I have also discussed with the station superintendent and the patients family friend as agreed with the patient. Acute Respiratory failure with Hypoxia- Now on venturi mask Complete Opacification of right hemithorax secondary to Non small cell lung ca and loculated fluids Pneumonia likely gram negative Non small cell lung CA- diagnose 03/2019 SIRS with no organ dysfunction Severe Protein calorie malnutrition with cachexia COPD A fib Hyperkalemia Agitation/Anxiety Hx ot ETOH abuse remote history of TB diagnosis 1986, treated for 6 months-negative AFB 4 in March 2019 Plan Continue supportive care Hospice discussed and patient will like to speak to Rep Consult Pulmonary and Oncology- INPUT NOTED Continue IMCU care, patient with rising WBC, Refusing some labs and also still with shortness of breath with minimal exertion Ok to eat but monitor for aspiration Continue oxygen therapy, nebs patient definitely appears to be only amendable to palliative care but patient refused. Continue Abx Advance care planning DVT prophylaxis Current Visit: Yes Status: Acute Plan to address problem: SCD to BLE while in bed, Pt ambulatory at this time. Patient wants to persue his radiation treatment. Will be discharged once his o2 requirement is at goal. History Interval history: Patient was seen and evaluated this morning. Patient is on 60% high flow oxygen Hospitalist Physical - Physical exam Narrative exam: Narrative exam: General appearance: Present: cachectic, other (moderate distress)-high flow oxygen nc - EENT Eyes: Present: PERRL, EOM intact ENT: hearing intact, clear oral mucosa - Neck Neck: Present: supple, normal ROM - Respiratory Respiratory effort: labored, accessory muscle use Respiratory: bilateral: diminished - Extremities Extremities: no ischemia, pulses intact, pulses symmetrical, No edema, Full ROM Peripheral Pulses: within normal limits - Abdominal General gastrointestinal: soft, non-tender, non-distended, normal bowel sounds - Integumentary Integumentary: Present: warm, dry (tattoo) - Psychiatric Psychiatric: appropriate mood/affect - Neurologic Neurologic: CNII-XII intact, moves all extremities - Allied Health Allied health notes reviewed: nursing - Constitutional Vitals: Temp Pulse Resp BP Pulse Ox 97.6 F 91 H 20 150/86 96 05/17/19 12:00 05/17/19 14:30 05/17/19 13:00 05/17/19 14:30 05/17/19 13:00 General appearance: Present: no acute distress Results - Labs CBC & Chem 7: 05/15/19 05:20 05/13/19 23:15 Labs: Laboratory Last Values WBC 18.6 K/mm3 (4.5-11.0) H 05/15/19 05:20 RBC 3.60 M/mm3 (3.65-5.03) L 05/15/19 05:20 Hgb 10.9 gm/dl (11.8-15.2) L 05/15/19 05:20 Hct 33.0 % (35.5-45.6) L 05/15/19 05:20 MCV 92 fl (84-94) 05/15/19 05:20 MCH 30 pg (28-32) 05/15/19 05:20 MCHC 33 % (32-34) 05/15/19 05:20 RDW 18.3 % (13.2-15.2) H 05/15/19 05:20 Plt Count 468 K/mm3 (140-440) H 05/15/19 05:20 Lymph % (Auto) 3.4 % (13.4-35.0) L 05/13/19 09:36 Bee % (Auto) 7.4 % (0.0-7.3) H 05/13/19 09:36 Eos % (Auto) 0.3 % (0.0-4.3) 05/13/19 09:36 Baso % (Auto) 0.1 % (0.0-1.8) 05/13/19 09:36 Lymph # 0.6 K/mm3 (1.2-5.4) L 05/13/19 09:36 Bee # 1.4 K/mm3 (0.0-0.8) H 05/13/19 09:36 Eos # 0.1 K/mm3 (0.0-0.4) 05/13/19 09:36 Baso # 0.0 K/mm3 (0.0-0.1) 05/13/19 09:36 Seg Neutrophils % 88.8 % (40.0-70.0) H 05/13/19 09:36 Seg Neutrophils # 16.8 K/mm3 (1.8-7.7) H 05/13/19 09:36 PT 14.6 Sec. (12.2-14.9) 05/15/19 05:20 INR 1.17 (0.87-1.13) H 05/15/19 05:20 APTT 32.6 Sec. (24.2-36.6) 05/12/19 18:10 POC ABG pH 7.322 (7.35-7.45) L 05/13/19 11:04 POC ABG pCO2 55.6 (35-45) H 05/13/19 11:04 POC ABG pO2 68 (80-105) L 05/13/19 11:04 POC ABG HCO3 28.8 (22-26 mml/L) 05/13/19 11:04 POC ABG Total CO2 30 (23-27mmol/L) 05/13/19 11:04 POC ABG O2 Sat 91 05/13/19 11:04 POC ABG Base Excess 3 ((-2) - (+3)mmol/L) 05/13/19 11:04 32 % 05/13/19 11:04 Sodium 138 mmol/L (137-145) 05/13/19 23:15 Potassium 4.9 mmol/L (3.6-5.0) 05/13/19 23:15 Chloride 97.7 mmol/L (98-107) L 05/13/19 23:15 Carbon Dioxide 30 mmol/L (22-30) 05/13/19 23:15 15 mmol/L 05/13/19 23:15 BUN 24 mg/dL (9-20) H 05/13/19 23:15 0.5 mg/dL (0.8-1.5) L 05/13/19 23:15 Estimated GFR > 60 ml/min 05/13/19 23:15 48 % 05/13/19 23:15 Glucose 206 mg/dL (75-100) H 05/13/19 23:15 POC Glucose 165 (70-105) H 05/15/19 23:47 Calcium 9.1 mg/dL (8.4-10.2) 05/13/19 23:15 0.30 mg/dL (0.1-1.2) 05/13/19 23:15 AST 14 units/L (5-40) 05/13/19 23:15 ALT 18 units/L (7-56) 05/13/19 23:15 178 units/L (35-129) H 05/13/19 23:15 64 units/L (55-170) 05/12/19 18:34 CK-MB (CK-2) 7.6 ng/mL (0.0-4.0) H 05/12/19 18:34 CK-MB (CK-2) Rel Index 11.8 (0-4) H 05/12/19 18:34 < 0.010 ng/mL (0.00-0.029) 05/12/19 18:10 NT-Pro-B Natriuret Pep 878.4 pg/mL (0-900) 05/12/19 18:10 7.6 g/dL (6.3-8.2) 05/13/19 23:15 2.4 g/dL (3.9-5) L 05/13/19 23:15 0.5 % 05/13/19 23:15 Vancomycin Trough 5.2 ug/mL (5.0-20.0) 05/16/19 22:38 Active Medications - Current Medications Current Medications: Generic Name Dose Route Start Last Admin Trade Name Freq PRN Reason Stop Dose Admin Acetaminophen 650 mg 05/12/19 20:13 05/14/19 06:10 Tylenol PO 650 mg Q4H PRN Administration Pain MILD(1-3)/Fever >100.5/BOO Albuterol 2.5 mg 05/12/19 20:13 05/15/19 14:14 Proventil IH 2.5 mg Q4HRT PRN Administration Shortness Of Breath Amiodarone HCl 200 mg 05/13/19 10:00 05/17/19 10:36 Cordarone PO 200 mg DAILY FRANCISCO JAVIER Administration Arformoterol Tartrate 15 mcg 05/13/19 08:00 05/17/19 08:01 Brovana Nebu IH 15 mcg Q12HRT FRANCISCO JAVIER Administration Budesonide 0.5 mg 05/13/19 08:00 05/17/19 08:01 Pulmicort IH 0.5 mg Q12HRT FRANCISCO JAVIER Administration Diltiazem HCl 60 mg 05/12/19 21:00 05/17/19 14:30 Cardizem PO 60 mg Q6H FRANCISCO JAVIER Administration Enoxaparin Sodium 40 mg 05/14/19 10:00 05/17/19 10:35 Lovenox SUB-Q 40 mg QDAY@1000 FRANCISCO JAVIER Administration Folic Acid 1 mg 05/13/19 10:00 05/17/19 10:36 Folvite PO 1 mg QDAY FRANCISCO JAVIER Administration Furosemide 20 mg 05/13/19 10:00 05/17/19 10:36 Lasix PO 20 mg QDAY FRANCISCO JAVIER Administration Hydrocodone Bit/Homatropine Methylb 10 ml 05/13/19 07:15 Hydromet PO Q6H PRN Cough Cefepime HCl 2 gm in 100 mls @ 200 mls/hr 05/12/19 22:00 05/17/19 14:30 Maxipime/Ns 2 Gm/100 Ml IV 200 mls/hr Q8HR FRANCISCO JAVIER Administration Protocol Methylprednisolone Sodium Succinate 40 mg 05/13/19 14:00 05/17/19 14:30 Solu-Medrol IV 40 mg Q8HR FRANCISCO AJVIER Administration Nicotine 14 mg 05/13/19 10:00 05/17/19 10:36 Habitrol TD 14 mg QDAY FRANCISCO JAVIER Administration Ondansetron HCl 4 mg 05/12/19 20:13 Zofran IV Q8H PRN Nausea And Vomiting Oxycodone/Acetaminophen 1 tab 05/12/19 20:18 05/17/19 14:17 Percocet 5/325 PO 1 tab Q6H PRN Administration Pain, Moderate (4-6) Sodium Chloride 10 ml 05/12/19 22:00 05/17/19 10:37 Sodium Chloride Flush Syringe 10 Ml IV 10 ml BID FRANCISCO JAVIER Administration Sodium Chloride 10 ml 05/12/19 20:13 Sodium Chloride Flush Syringe 10 Ml IV PRN PRN LINE FLUSH Temazepam 15 mg 05/12/19 20:18 05/16/19 20:44 Restoril PO 15 mg QHS PRN Administration Sleep Thiamine HCl 100 mg 05/13/19 10:00 05/17/19 10:36 Vitamin B-1 PO 100 mg QDAY FRANCISCO JAVIER Administration
[2019-05-17] MEDS: RESTORIL PO PRN (22:37)
[2019-05-18] MEDS: PERCOCET 5/325 PO PRN ×3 (02:46→14:22)
[2019-05-18] MEDS: MAXIPIME/NS 2 GM/100 ML 2 GM/100 ML BAG IV SCH ×4 (02:47→21:17)
[2019-05-18] MEDS: CARDIZEM PO SCH ×4 (05:29→21:17)
--- NOTE | 2019-05-18 06:54 | Hem/Onc Progress Note ---
Assessment and Plan 1. Lung cancer. NSCLC 2. h/o Short of breath. 3. h/o Right lung opacification. 4. The patient recently started on radiation. 5. Being treated for pneumonia. 6. Malnutrition. 7. Chronic obstructive pulmonary disease. 8. The patient on steroids and antibiotics. 9. The patient will need outpatient followup. I will follow the patient during inpatient stay. I communicated with dr medina about pt thoracentesis was attempted pt needs to make apt as OP for more IX and then OP Rx XRT - by dr medina ? hospice appropriate - if pt disagrees - OP follow up pt says had [address] Medina - Patient Problems (1) Lung cancer Current Visit: No Status: Chronic Qualifiers: Laterality: right Lung location: overlapping sites Qualified Code(s): C34.81 - Malignant neoplasm of overlapping sites of right bronchus and lung Subjective Date of service: 05/18/19 Principal diagnosis: lung ca Interval history: breathing better Objective - Exam Narrative Exam: Pain - none General appearance appears better Performance status complete dependence Eyes - no icterus ENT no thrush LNs cervical not palpable Neck - normal ROM Respiratory SOB Breath sounds - decreased air entry CVS S1 S2 + Extremities normal temperature General GI Soft Rectal deferred male - deferred Skin warm Musculoskeletal moving normal Neurologically no focal deficit - Constitutional Vitals: Last Vital Signs Temp 98.4 F 05/18/19 02:16 Pulse 84 05/18/19 02:16 Resp 18 05/18/19 02:16 BP 124/84 05/18/19 05:29 Pulse Ox 95 05/18/19 04:43 Medications & Allergies - Medications Allergies/Adverse Reactions: Allergies No Known Allergies Allergy (Verified 05/12/19 17:25) Home Medications: Home Medications Medication Instructions Recorded Confirmed Last Taken Type ALBUTEROL Inhaler (OR & NICU) 2 puff IH QID PRN 30 Days #1 pump 04/17/19 05/13/19 Unknown Rx [ProAir HFA Inhaler] Amiodarone [Cordarone 200 MG TAB] 200 mg PO DAILY #30 tablet 04/17/19 05/13/19 Unknown Rx Benzonatate [Tessalon Perles] 200 mg PO Q8HR #30 capsule 04/17/19 05/13/19 Unknown Rx Fluticasone/Salmeterol [Advair 1 puff IH BID #1 blst.w.dev 04/17/19 05/13/19 Unknown Rx 250-50 Diskus] Folic Acid [Folvite] 1 mg PO QDAY #30 tablet 04/17/19 05/13/19 Unknown Rx Furosemide [Lasix] 20 mg PO QDAY #30 tablet 04/17/19 05/13/19 Unknown Rx Ipratropium/Albuterol Sulfate 1 ampul IH TIDRT #120 ampul.neb 04/17/19 05/13/19 Unknown Rx [DUONEB *Not for PRN Use*] Nicotine [Habitrol] 14 mg TD QDAY #30 patch 04/17/19 05/13/19 Unknown Rx Prednisone [predniSONE 10 mg 10 mg PO .TAPER #1 tab.ds.pk 04/17/19 05/13/19 Unknown Rx (6-Day Pack, 21 Tabs)] Temazepam [Restoril] 15 mg PO QHS PRN #7 capsule 04/17/19 05/13/19 Unknown Rx Thiamine [Vitamin B-1] 100 mg PO QDAY #30 tablet 04/17/19 05/13/19 Unknown Rx dilTIAZem [Cardizem] 60 mg PO Q6H #120 tablet 04/17/19 05/13/19 Unknown Rx oxyCODONE /ACETAMINOPHEN [Percocet 1 tab PO Q6H PRN #14 tablet 04/17/19 05/13/19 Unknown Rx 5/325 mg] oxyCODONE /ACETAMINOPHEN [Percocet 1 tab PO Q6H PRN #30 tablet 04/17/19 05/13/19 Unknown Rx 5/325 mg] Active Medications: Generic Name Dose Route Start Last Admin Trade Name Freq PRN Reason Stop Dose Admin Acetaminophen 650 mg 05/12/19 20:13 05/14/19 06:10 Tylenol PO 650 mg Q4H PRN Administration Pain MILD(1-3)/Fever >100.5/BOO Albuterol 2.5 mg 05/12/19 20:13 05/15/19 14:14 Proventil IH 2.5 mg Q4HRT PRN Administration Shortness Of Breath Amiodarone HCl 200 mg 05/13/19 10:00 05/17/19 10:36 Cordarone PO 200 mg DAILY FRANCISCO JAVIER Administration Arformoterol Tartrate 15 mcg 05/13/19 08:00 08/14/19 19:33 Brovana Nebu IH 15 mcg Q12HRT FRANCISCO JAVIER Administration Budesonide 0.5 mg 05/13/19 08:00 05/17/19 19:33 Pulmicort IH 0.5 mg Q12HRT FRANCISCO JAVIER Administration Diltiazem HCl 60 mg 05/12/19 21:00 05/18/19 05:29 Cardizem PO 60 mg Q6H FRANCISCO JAVIER Administration Enoxaparin Sodium 40 mg 05/14/19 10:00 05/17/19 10:35 Lovenox SUB-Q 40 mg QDAY@1000 FRANCISCO JAVIER Administration Folic Acid 1 mg 05/13/19 10:00 05/17/19 10:36 Folvite PO 1 mg QDAY FRANCISCO JAVIER Administration Furosemide 20 mg 05/13/19 10:00 05/17/19 10:36 Lasix PO 20 mg QDAY FRANCISCO JAVIER Administration Hydrocodone Bit/Homatropine Methylb 10 ml 05/13/19 07:15 Hydromet PO Q6H PRN Cough Cefepime HCl 2 gm in 100 mls @ 200 mls/hr 05/12/19 22:00 05/18/19 02:47 Maxipime/Ns 2 Gm/100 Ml IV 200 mls/hr Q8HR FRANCISCO JAVIER Administration Protocol Methylprednisolone Sodium Succinate 40 mg 05/13/19 14:00 05/17/19 22:36 Solu-Medrol IV 40 mg Q8HR FRANCISCO JAVIER Administration Nicotine 14 mg 05/13/19 10:00 05/17/19 10:36 Habitrol TD 14 mg QDAY FRANCISCO JAVIER Administration Ondansetron HCl 4 mg 05/12/19 20:13 Zofran IV Q8H PRN Nausea And Vomiting Oxycodone/Acetaminophen 1 tab 05/12/19 20:18 05/18/19 02:46 Percocet 5/325 PO 1 tab Q6H PRN Administration Pain, Moderate (4-6) Sodium Chloride 10 ml 05/12/19 22:00 05/17/19 22:37 Sodium Chloride Flush Syringe 10 Ml IV 10 ml BID FRANCISCO JAVIER Administration Sodium Chloride 10 ml 05/12/19 20:13 Sodium Chloride Flush Syringe 10 Ml IV PRN PRN LINE FLUSH Temazepam 15 mg 05/12/19 20:18 05/17/19 22:37 Restoril PO 15 mg QHS PRN Administration Sleep Thiamine HCl 100 mg 05/13/19 10:00 05/17/19 10:36 Vitamin B-1 PO 100 mg QDAY FRANCISCO JAVIER Administration
[2019-05-18] MEDS: HABITROL TD SCH (09:28)
[2019-05-18] MEDS: LASIX PO SCH (09:28)
[2019-05-18] MEDS: LOVENOX SUB-Q SCH (09:28)
[2019-05-18] MEDS: FOLVITE PO SCH (09:28)
[2019-05-18] MEDS: VITAMIN B-1 PO SCH (09:28)
[2019-05-18] MEDS: CORDARONE PO SCH (09:28)
[2019-05-18] MEDS: SODIUM CHLORIDE FLUSH SYRINGE 10 ML IV SCH ×2 (09:30→21:15)
--- NOTE | 2019-05-18 09:37 | Progress Note ---
Assessment and Plan Acute Respiratory failure with Hypoxia- O2 sat of 94% ON 4 Liters Right pleural effusion and atelectasis Non small cell lung CA- diagnosed 03/2019 SIRS with no organ dysfunction Severe Protein calorie malnutrition with cachexia Tobacco use disorder, states he quit 2 weeks ago COPD Afib Hyperkalemia Agitation/Anxiety Hx of ETOH abuse Remote history of TB diagnosis 1986, treated for 6 months-negative AFB 4 in March 2019 -Hold VTE prophylaxis and plan for indwelling pleural drain placement tomorrow -Continue steroids, start taper in the morning Patient states the right lung is , why the thoracentesis. I explained in details that it is for symptom relief. If he has an indwelling drain he can periodically drain it himself based on his symptoms. Hopefully he will soon have a response to radiation therapy. Need pleurx drain, the last time he was drained, there was improvement in his respiratory status. Patient has tumor infiltration of the right lung upper lobe and bronchus intermedius, no need for further bronchoscopy, need on going radiation therapy Discussed with IR -NIPPV for work of breathing as needed -ABG prn -Bronchodilators, mucolytic therapy -Aspiration precautions -VTE prophylaxis -Supplemental oxygen therapy keep O2 sats>90% -Patient has adenocarcinoma, needs biomarker testing may be a candidate for immunotherapy which has had some good response -Smoking cessation counselling done at the bedside -[facility] protocol, historically has needed this -Anxiety management -Nutritional supplements, get nutrition consult -Continue empiric antibiotics for now. De-escalate as indicated -Monitor renal function, hemodynamics and electrolyte profile closely while on diuretic therapy CONDITION: CRITICAL PROGNOSIS: GUARDED CODE STATUS: FULL CODE The high probability of a clinically significant, sudden or life threatening deterioration of the [pulmonary] system(s) required my full and direct attention, intervention and personal management. The aggregate critical care time was [31] minutes. This time is in addition to time spent performing reported procedures but includes the following: [x] Data Review and interpretation [x] Patient assessment and monitoring of vital signs [x] Documentation [x] Medication orders and management Subjective Date of service: 05/18/19 Principal diagnosis: lung ca Interval history: Patient is seen today for: acute on chronic hypoxic respiratory failure; right recurrent malignant pleural effusion; stage 4 [place] lung Seen and examined at bedside; 24hour events reviewed; nursing and respiratory care staff consulted; no adverse overnight events reported to me; Mild respiratory distress on venturi mask at 40%, no fevers, no vomiting. Vitals, labs, medications, chart reviewed. Objective Vital Signs - 12hr 05/17/19 05/18/19 05/18/19 23:39 02:16 04:43 Temperature 98.4 F Pulse Rate 84 Respiratory 18 Rate Blood Pressure 124/84 O2 Sat by Pulse 93 98 95 Oximetry 05/18/19 05/18/19 05/18/19 05:29 07:47 09:31 Temperature 98.0 F Pulse Rate 86 86 Respiratory 22 Rate Blood Pressure 124/84 144/90 144/90 O2 Sat by Pulse 95 Oximetry Constitutional: no acute distress, asleep, other (cachexia, chest wall tattoos) Eyes: non-icteric ENT: oropharynx dry Neck: supple, no lymphadenopathy, no JVD Effort: mildly labored Ascultation: Bilateral: diminished breath sounds (right lung), wheezes Cardiovascular: regular rate and rhythm Gastrointestinal: normoactive bowel sounds, soft, non-tender, non-distended Integumentary: normal Extremities: no cyanosis, no edema, pulses normal, no ischemia or petechiae Neurologic: normal mental status, non-focal exam, pupils equal and round, CN II- XII normal, motor strength normal and Psychiatric: anxious CBC and BMP: 05/15/19 05:20 05/13/19 23:15 ABG, PT/INR, D-dimer: ABG POC ABG pH 7.322 (7.35-7.45) L 05/13/19 11:04 POC ABG pCO2 55.6 (35-45) H 05/13/19 11:04 POC ABG pO2 68 (80-105) L 05/13/19 11:04 POC ABG HCO3 28.8 (22-26 mml/L) 05/13/19 11:04 POC ABG Total CO2 30 (23-27mmol/L) 05/13/19 11:04 POC ABG O2 Sat 91 05/13/19 11:04 PT/INR, D-dimer PT 14.6 Sec. (12.2-14.9) 05/15/19 05:20 INR 1.17 (0.87-1.13) H 05/15/19 05:20 Abnormal lab findings: Abnormal Labs 05/12/19 05/12/19 05/12/19 18:10 18:10 18:34 WBC 17.8 H RBC Hgb Hct MCV MCHC RDW 18.4 H Plt Count 579 H Lymph % (Auto) 6.0 L Stephenson % (Auto) Lymph # 1.1 L Stephenson # 1.1 H Seg Neutrophils % 87.2 H Seg Neutrophils # 15.5 H INR 1.14 H POC ABG pH POC ABG pCO2 POC ABG pO2 Potassium 5.2 H Chloride 96.3 L BUN 22 H Creatinine 0.4 L Glucose POC Glucose Alkaline Phosphatase 242 H CK-MB (CK-2) 7.6 H CK-MB (CK-2) Rel Index 11.8 H Albumin 2.8 L 05/13/19 05/13/19 05/13/19 08:43 09:36 11:04 WBC 18.9 H RBC 3.62 L Hgb 10.8 L Hct 34.8 L MCV 96 H MCHC 31 L RDW 19.0 H Plt Count 463 H Lymph % (Auto) 3.4 L Stephenson % (Auto) 7.4 H Lymph # 0.6 L Stephenson # 1.4 H Seg Neutrophils % 88.8 H Seg Neutrophils # 16.8 H INR POC ABG pH 7.322 L POC ABG pCO2 55.6 H POC ABG pO2 68 L Potassium Chloride BUN Creatinine Glucose POC Glucose 178 H Alkaline Phosphatase CK-MB (CK-2) CK-MB (CK-2) Rel Index Albumin 05/13/19 05/15/19 05/15/19 23:15 05:20 05:20 WBC 18.6 H RBC 3.60 L Hgb 10.9 L Hct 33.0 L MCV MCHC RDW 18.3 H Plt Count 468 H Lymph % (Auto) Stephenson % (Auto) Lymph # Stephenson # Seg Neutrophils % Seg Neutrophils # INR 1.17 H POC ABG pH POC ABG pCO2 POC ABG pO2 Potassium Chloride 97.7 L BUN 24 H Creatinine 0.5 L Glucose 206 H POC Glucose Alkaline Phosphatase 178 H CK-MB (CK-2) CK-MB (CK-2) Rel Index Albumin 2.4 L 05/15/19 23:47 WBC RBC Hgb Hct MCV MCHC RDW Plt Count Lymph % (Auto) Stephenson % (Auto) Lymph # Stephenson # Seg Neutrophils % Seg Neutrophils # INR POC ABG pH POC ABG pCO2 POC ABG pO2 Potassium Chloride BUN Creatinine Glucose POC Glucose 165 H Alkaline Phosphatase CK-MB (CK-2) CK-MB (CK-2) Rel Index Albumin Allied health notes reviewed: RT (Adjust FIO2 as needed. If any increasing work of breathing, BIPAP)
[2019-05-18] MEDS: BROVANA NEBU IH SCH ×2 (09:47→20:15)
[2019-05-18] MEDS: PULMICORT IH SCH ×2 (09:47→20:15)
--- NOTE | 2019-05-18 13:00 | Progress Note ---
Assessment and Plan Assessment and plan: 68 YO Male with Right Lung Adenocarcinoma, Severe Malnutrition,COPD, TB in 1986 S/P Full course therapy, S/P radiation therapy today. Pt states that he has experienced shortness of breath, fatigue, and progressive weakness over the past 1 week with worsening symptoms over the past 4 days, with concomitant worsening of symptoms after radiation therapy today. Pt was instructed by his Oncologist to seek further care. Pt transported to [facility] via private vehicle. Pt seen and evaluated in ED and found to have Bilateral Pneumonia complicated by SIRS, as well as Lung Maligancy. Pt counseled regarding poor prognosis. Pt requests aggressive medical therapy. Pt admitted to [facility] Unit and initiated on Pneumonia Protocol for Healthcare Associated Pneumonia. Pt denies fever, chills, CP, Palpitations, Trauma, Hemoptysis, Skin Rash, Edema, or recent ill contacts. Prior Admission on 04/08/19 reviewed. All listed medication reconciled at time of admission. 30 minutes additional time dedicated to Advanced care planning, and discussion of goals of care. Chest xray: Lungs/Pleura: There is persistent complete opacification of the right hemithorax. Diffuse left lung interstitial opacities persist, these are slightly improved when compared with the prior exam. * PER IR "Patient was saturating 90% on a nonrebreather in mild respiratory distress with accessory muscle use. It is unclear if he could even tolerate the procedure. I performed a bedside ultrasound of his right pleural cavity which demonstrated numerous loculations making pleural catheter placement of limited benefit in addition to the mass in his right lung preventing expansion of the right lung. I tried to explain this to him, but the patient did not want to listen to this explanation, and therefore I contacted his rn call center to explain why he was a suboptimal patient for this procedure. Patient returned to the floor." * I have explained to the patient the gravity and severity of his condition. I have also discussed with the rn call center and the patients family friend as agreed with the patient. Acute Respiratory failure with Hypoxia- Now on venturi mask Complete Opacification of right hemithorax secondary to Non small cell lung ca and loculated fluids Pneumonia likely gram negative Non small cell lung CA- diagnose 03/2019 SIRS with no organ dysfunction Severe Protein calorie malnutrition with cachexia COPD A fib Hyperkalemia Agitation/Anxiety Hx ot ETOH abuse remote history of TB diagnosis 1986, treated for 6 months-negative AFB 4 in March 2019 Plan Continue supportive care Hospice discussed and patient will like to speak to Rep Consult Pulmonary and Oncology- INPUT NOTED Continue IMCU care, patient with rising WBC, Refusing some labs and also still with shortness of breath with minimal exertion Ok to eat but monitor for aspiration Continue oxygen therapy, nebs patient definitely appears to be only amendable to palliative care but patient refused. Continue Abx Advance care planning DVT prophylaxis Current Visit: Yes Status: Acute Plan to address problem: SCD to BLE while in bed, Pt ambulatory at this time. Patient wants to persue his radiation treatment. Will be discharged once his o2 requirement is at goal. History Interval history: Patient was seen and evaluated this morning. Patient is on 60% high flow oxygen Hospitalist Physical - Physical exam Narrative exam: Narrative exam: General appearance: Present: cachectic, other (moderate distress)-high flow oxygen nc - EENT Eyes: Present: PERRL, EOM intact ENT: hearing intact, clear oral mucosa - Neck Neck: Present: supple, normal ROM - Respiratory Respiratory effort: labored, accessory muscle use Respiratory: bilateral: diminished - Extremities Extremities: no ischemia, pulses intact, pulses symmetrical, No edema, Full ROM Peripheral Pulses: within normal limits - Abdominal General gastrointestinal: soft, non-tender, non-distended, normal bowel sounds - Integumentary Integumentary: Present: warm, dry (tattoo) - Psychiatric Psychiatric: appropriate mood/affect - Neurologic Neurologic: CNII-XII intact, moves all extremities - Allied Health Allied health notes reviewed: nursing - Constitutional Vitals: Temp Pulse Resp BP Pulse Ox 98.0 F 94 H 22 144/90 96 05/18/19 07:47 05/18/19 10:00 05/18/19 08:00 05/18/19 09:31 05/18/19 09:48 General appearance: Present: no acute distress Results - Labs CBC & Chem 7: 05/15/19 05:20 05/13/19 23:15 Labs: Laboratory Last Values WBC 18.6 K/mm3 (4.5-11.0) H 05/15/19 05:20 RBC 3.60 M/mm3 (3.65-5.03) L 05/15/19 05:20 Hgb 10.9 gm/dl (11.8-15.2) L 05/15/19 05:20 Hct 33.0 % (35.5-45.6) L 05/15/19 05:20 MCV 92 fl (84-94) 05/15/19 05:20 MCH 30 pg (28-32) 05/15/19 05:20 MCHC 33 % (32-34) 05/15/19 05:20 RDW 18.3 % (13.2-15.2) H 05/15/19 05:20 Plt Count 468 K/mm3 (140-440) H 05/15/19 05:20 Lymph % (Auto) 3.4 % (13.4-35.0) L 05/13/19 09:36 Johnson % (Auto) 7.4 % (0.0-7.3) H 05/13/19 09:36 Eos % (Auto) 0.3 % (0.0-4.3) 05/13/19 09:36 Baso % (Auto) 0.1 % (0.0-1.8) 05/13/19 09:36 Lymph # 0.6 K/mm3 (1.2-5.4) L 05/13/19 09:36 Johnson # 1.4 K/mm3 (0.0-0.8) H 05/13/19 09:36 Eos # 0.1 K/mm3 (0.0-0.4) 05/13/19 09:36 Baso # 0.0 K/mm3 (0.0-0.1) 05/13/19 09:36 Seg Neutrophils % 88.8 % (40.0-70.0) H 05/13/19 09:36 Seg Neutrophils # 16.8 K/mm3 (1.8-7.7) H 05/13/19 09:36 PT 14.6 Sec. (12.2-14.9) 05/15/19 05:20 INR 1.17 (0.87-1.13) H 05/15/19 05:20 APTT 32.6 Sec. (24.2-36.6) 05/12/19 18:10 POC ABG pH 7.322 (7.35-7.45) L 05/13/19 11:04 POC ABG pCO2 55.6 (35-45) H 05/13/19 11:04 POC ABG pO2 68 (80-105) L 05/13/19 11:04 POC ABG HCO3 28.8 (22-26 mml/L) 05/13/19 11:04 POC ABG Total CO2 30 (23-27mmol/L) 05/13/19 11:04 POC ABG O2 Sat 91 05/13/19 11:04 POC ABG Base Excess 3 ((-2) - (+3)mmol/L) 05/13/19 11:04 32 % 05/13/19 11:04 Sodium 138 mmol/L (137-145) 05/13/19 23:15 Potassium 4.9 mmol/L (3.6-5.0) 05/13/19 23:15 Chloride 97.7 mmol/L (98-107) L 05/13/19 23:15 Carbon Dioxide 30 mmol/L (22-30) 05/13/19 23:15 15 mmol/L 05/13/19 23:15 BUN 24 mg/dL (9-20) H 05/13/19 23:15 0.5 mg/dL (0.8-1.5) L 05/13/19 23:15 Estimated GFR > 60 ml/min 05/13/19 23:15 48 % 05/13/19 23:15 Glucose 206 mg/dL (75-100) H 05/13/19 23:15 POC Glucose 165 (70-105) H 05/15/19 23:47 Calcium 9.1 mg/dL (8.4-10.2) 05/13/19 23:15 0.30 mg/dL (0.1-1.2) 05/13/19 23:15 AST 14 units/L (5-40) 05/13/19 23:15 ALT 18 units/L (7-56) 05/13/19 23:15 178 units/L (35-129) H 05/13/19 23:15 64 units/L (55-170) 05/12/19 18:34 CK-MB (CK-2) 7.6 ng/mL (0.0-4.0) H 05/12/19 18:34 CK-MB (CK-2) Rel Index 11.8 (0-4) H 05/12/19 18:34 < 0.010 ng/mL (0.00-0.029) 05/12/19 18:10 NT-Pro-B Natriuret Pep 878.4 pg/mL (0-900) 05/12/19 18:10 7.6 g/dL (6.3-8.2) 05/13/19 23:15 2.4 g/dL (3.9-5) L 05/13/19 23:15 0.5 % 05/13/19 23:15 Vancomycin Trough 5.2 ug/mL (5.0-20.0) 05/16/19 22:38 Active Medications - Current Medications Current Medications: Generic Name Dose Route Start Last Admin Trade Name Freq PRN Reason Stop Dose Admin Acetaminophen 650 mg 05/12/19 20:13 05/14/19 06:10 Tylenol PO 650 mg Q4H PRN Administration Pain MILD(1-3)/Fever >100.5/BOO Albuterol 2.5 mg 05/12/19 20:13 05/15/19 14:14 Proventil IH 2.5 mg Q4HRT PRN Administration Shortness Of Breath Amiodarone HCl 200 mg 05/13/19 10:00 05/18/19 09:28 Cordarone PO 200 mg DAILY FRANCISCO JAVIER Administration Arformoterol Tartrate 15 mcg 05/13/19 08:00 05/18/19 09:47 Brovana Nebu IH Not Given Q12HRT FRANCISCO JAVIER Budesonide 0.5 mg 05/13/19 08:00 05/18/19 09:47 Pulmicort IH Not Given Q12HRT FRANCISCO JAVIER Diltiazem HCl 60 mg 05/12/19 21:00 05/18/19 09:31 Cardizem PO 60 mg Q6H FRANCISCO JAVIER Administration Enoxaparin Sodium 40 mg 05/14/19 10:00 05/18/19 09:28 Lovenox SUB-Q 40 mg QDAY@1000 FRANCISCO JAVIER Administration Folic Acid 1 mg 05/13/19 10:00 05/18/19 09:28 Folvite PO 1 mg QDAY FRANCISCO JAVIER Administration Furosemide 20 mg 05/13/19 10:00 05/18/19 09:28 Lasix PO 20 mg QDAY FRANCISCO JAVIER Administration Hydrocodone Bit/Homatropine Methylb 10 ml 05/13/19 07:15 Hydromet PO Q6H PRN Cough Cefepime HCl 2 gm in 100 mls @ 200 mls/hr 05/12/19 22:00 05/18/19 02:47 Maxipime/Ns 2 Gm/100 Ml IV 200 mls/hr Q8HR FRANCISCO JAVIER Administration Protocol Methylprednisolone Sodium Succinate 40 mg 05/13/19 14:00 05/17/19 22:36 Solu-Medrol IV 40 mg Q8HR FRANCISCO JAVIRE Administration Nicotine 14 mg 05/13/19 10:00 05/18/19 09:28 Habitrol TD 14 mg QDAY FRANCISCO JAVIER Administration Ondansetron HCl 4 mg 05/12/19 20:13 Zofran IV Q8H PRN Nausea And Vomiting Oxycodone/Acetaminophen 1 tab 05/12/19 20:18 05/18/19 08:27 Percocet 5/325 PO 1 tab Q6H PRN Administration Pain, Moderate (4-6) Sodium Chloride 10 ml 05/12/19 22:00 05/17/19 22:37 Sodium Chloride Flush Syringe 10 Ml IV 10 ml BID FRANCISCO JAVIER Administration Sodium Chloride 10 ml 05/12/19 20:13 Sodium Chloride Flush Syringe 10 Ml IV PRN PRN LINE FLUSH Temazepam 15 mg 05/12/19 20:18 05/17/19 22:37 Restoril PO 15 mg QHS PRN Administration Sleep Thiamine HCl 100 mg 05/13/19 10:00 05/18/19 09:28 Vitamin B-1 PO 100 mg QDAY FRANCISCO JAVIER Administration
[2019-05-18] MEDS: SOLU-Medrol IV SCH ×3 (14:23→21:15)
[2019-05-18] MEDS: RESTORIL PO PRN (21:29)
[2019-05-19] MEDS: CARDIZEM PO SCH ×4 (02:52→20:00)
[2019-05-19] MEDS: PERCOCET 5/325 PO PRN ×4 (02:52→21:43)
[2019-05-19] MEDS: SOLU-Medrol IV SCH ×3 (06:06→21:46)
[2019-05-19] MEDS: MAXIPIME/NS 2 GM/100 ML 2 GM/100 ML BAG IV SCH ×2 (06:06→13:17)
--- NOTE | 2019-05-19 06:46 | Hem/Onc Progress Note ---
Assessment and Plan 1. Lung cancer. NSCLC 2. h/o Short of breath. 3. h/o Right lung opacification. 4. The patient recently started on radiation. 5. Being treated for pneumonia. 6. Malnutrition. 7. Chronic obstructive pulmonary disease. 8. The patient on steroids and antibiotics. 9. The patient will need outpatient followup. I will follow the patient during inpatient stay. thoracentesis was attempted pt needs to make apt as OP for more IX and then OP Rx XRT - by dr medina ? hospice appropriate - if pt disagrees - OP follow up pt says had [address] Medina 05/19 - d/w dr medina - pt refusing hospice - on o2 ? multidiscplinary team meet an option - Patient Problems (1) Lung cancer Current Visit: No Status: Chronic Qualifiers: Laterality: right Lung location: overlapping sites Qualified Code(s): C34.81 - Malignant neoplasm of overlapping sites of right bronchus and lung Subjective Date of service: 05/19/19 Principal diagnosis: lung ca Interval history: c/o oral discomfort on o2 Objective - Exam Narrative Exam: Pain - none General appearance appears better Performance status complete dependence Eyes - no icterus ENT no thrush LNs cervical not palpable Neck - normal ROM Respiratory SOB Breath sounds - decreased air entry CVS S1 S2 + Extremities normal temperature General GI Soft Rectal deferred male - deferred Skin warm Musculoskeletal moving normal Neurologically no focal deficit - Constitutional Vitals: Last Vital Signs Temp 97.8 F 05/19/19 02:02 Pulse 83 05/19/19 02:52 Resp 18 05/19/19 02:02 BP 125/79 05/19/19 02:52 Pulse Ox 90 05/19/19 02:02 Medications & Allergies - Medications Allergies/Adverse Reactions: Allergies No Known Allergies Allergy (Verified 05/12/19 17:25) Home Medications: Home Medications Medication Instructions Recorded Confirmed Last Taken Type ALBUTEROL Inhaler (OR & NICU) 2 puff IH QID PRN 30 Days #1 pump 04/17/19 05/13/19 Unknown Rx [ProAir HFA Inhaler] Amiodarone [Cordarone 200 MG TAB] 200 mg PO DAILY #30 tablet 04/17/19 05/13/19 Unknown Rx Benzonatate [Tessalon Perles] 200 mg PO Q8HR #30 capsule 04/17/19 05/13/19 Unknown Rx Fluticasone/Salmeterol [Advair 1 puff IH BID #1 blst.w.dev 04/17/19 05/13/19 Unknown Rx 250-50 Diskus] Folic Acid [Folvite] 1 mg PO QDAY #30 tablet 04/17/19 05/13/19 Unknown Rx Furosemide [Lasix] 20 mg PO QDAY #30 tablet 04/17/19 05/13/19 Unknown Rx Ipratropium/Albuterol Sulfate 1 ampul IH TIDRT #120 ampul.neb 04/17/19 05/13/19 Unknown Rx [DUONEB *Not for PRN Use*] Nicotine [Habitrol] 14 mg TD QDAY #30 patch 04/17/19 05/13/19 Unknown Rx Prednisone [predniSONE 10 mg 10 mg PO .TAPER #1 tab.ds.pk 04/17/19 05/13/19 Unkn own Rx (6-Day Pack, 21 Tabs)] Temazepam [Restoril] 15 mg PO QHS PRN #7 capsule 04/17/19 05/13/19 Unknown Rx Thiamine [Vitamin B-1] 100 mg PO QDAY #30 tablet 04/17/19 05/13/19 Unknown Rx dilTIAZem [Cardizem] 60 mg PO Q6H #120 tablet 04/17/19 05/13/19 Unknown Rx oxyCODONE /ACETAMINOPHEN [Percocet 1 tab PO Q6H PRN #14 tablet 04/17/19 05/13/19 Unknown Rx 5/325 mg] oxyCODONE /ACETAMINOPHEN [Percocet 1 tab PO Q6H PRN #30 tablet 04/17/19 05/13/19 Unknown Rx 5/325 mg] Active Medications: Generic Name Dose Route Start Last Admin Trade Name Freq PRN Reason Stop Dose Admin Acetaminophen 650 mg 05/12/19 20:13 05/14/19 06:10 Tylenol PO 650 mg Q4H PRN Administration Pain MILD(1-3)/Fever >100.5/BOO Albuterol 2.5 mg 05/12/19 20:13 05/15/19 14:14 Proventil IH 2.5 mg Q4HRT PRN Administration Shortness Of Breath Amiodarone HCl 200 mg 05/13/19 10:00 05/18/19 09:28 Cordarone PO 200 mg DAILY FRANCISCO JAVIER Administration Arformoterol Tartrate 15 mcg 05/13/19 08:00 05/18/19 20:15 Brovana Nebu IH 15 mcg Q12HRT FRANCISCO JAVIER Administration Budesonide 0.5 mg 05/13/19 08:00 05/18/19 20:15 Pulmicort IH 0.5 mg Q12HRT FRANCISCO JAVIER Administration Diltiazem HCl 60 mg 05/12/19 21:00 05/19/19 02:52 Cardizem PO 60 mg Q6H FRANCISCO JAVIER Administration Enoxaparin Sodium 40 mg 05/14/19 10:00 05/18/19 09:28 Lovenox SUB-Q 40 mg QDAY@1000 FRANCISCO JAVIER Administration Folic Acid 1 mg 05/13/19 10:00 05/18/19 09:28 Folvite PO 1 mg QDAY FRANCISCO JAVIER Administration Furosemide 20 mg 05/13/19 10:00 05/18/19 09:28 Lasix PO 20 mg QDAY FRANCISCO JAVIER Administration Hydrocodone Bit/Homatropine Methylb 10 ml 05/13/19 07:15 Hydromet PO Q6H PRN Cough Cefepime HCl 2 gm in 100 mls @ 200 mls/hr 05/12/19 22:00 05/19/19 06:06 Maxipime/Ns 2 Gm/100 Ml IV 200 mls/hr Q8HR FRANCISCO JAVIER Administration Protocol Methylprednisolone Sodium Succinate 40 mg 05/13/19 14:00 05/19/19 06:06 Solu-Medrol IV 40 mg Q8HR FRANCISCO JAVIER Administration Nicotine 14 mg 05/13/19 10:00 05/18/19 09:28 Habitrol TD 14 mg QDAY FRANCISCO JAVIER Administration Ondansetron HCl 4 mg 05/12/19 20:13 Zofran IV Q8H PRN Nausea And Vomiting Oxycodone/Acetaminophen 1 tab 05/12/19 20:18 05/19/19 02:52 Percocet 5/325 PO 1 tab Q6H PRN Administration Pain, Moderate (4-6) Sodium Chloride 10 ml 05/12/19 22:00 05/18/19 21:15 Sodium Chloride Flush Syringe 10 Ml IV 10 ml BID FRANCISCO JAVIER Administration Sodium Chloride 10 ml 05/12/19 20:13 Sodium Chloride Flush Syringe 10 Ml IV PRN PRN LINE FLUSH Temazepam 15 mg 05/12/19 20:18 05/18/19 21:29 Restoril PO 15 mg QHS PRN Administration Sleep Thiamine HCl 100 mg 05/13/19 10:00 05/18/19 09:28 Vitamin B-1 PO 100 mg QDAY FRANCISCO JAVIER Administration
--- NOTE | 2019-05-19 07:20 | Progress Note ---
Assessment and Plan Assessment and plan: 68 YO Male with Right Lung Adenocarcinoma, Severe Malnutrition,COPD, TB in 1986 S/P Full course therapy, S/P radiation therapy today. Pt states that he has experienced shortness of breath, fatigue, and progressive weakness over the past 1 week with worsening symptoms over the past 4 days, with concomitant worsening of symptoms after radiation therapy today. Pt was instructed by his Oncologist to seek further care. Pt transported to [facility] via private vehicle. Pt seen and evaluated in ED and found to have Bilateral Pneumonia complicated by SIRS, as well as Lung Maligancy. Pt counseled regarding poor prognosis. Pt requests aggressive medical therapy. Pt admitted to [facility] Unit and initiated on Pneumonia Protocol for Healthcare Associated Pneumonia. Pt denies fever, chills, CP, Palpitations, Trauma, Hemoptysis, Skin Rash, Edema, or recent ill contacts. Prior Admission on 04/08/19 reviewed. All listed medication reconciled at time of admission. 30 minutes additional time dedicated to Advanced care planning, and discussion of goals of care. Chest xray: Lungs/Pleura: There is persistent complete opacification of the right hemithorax. Diffuse left lung interstitial opacities persist, these are slightly improved when compared with the prior exam. * PER IR "Patient was saturating 90% on a nonrebreather in mild respiratory distress with accessory muscle use. It is unclear if he could even tolerate the procedure. I performed a bedside ultrasound of his right pleural cavity which demonstrated numerous loculations making pleural catheter placement of limited benefit in addition to the mass in his right lung preventing expansion of the right lung. I tried to explain this to him, but the patient did not want to listen to this explanation, and therefore I contacted his assistant service manager to explain why he was a suboptimal patient for this procedure. Patient returned to the floor." * I have explained to the patient the gravity and severity of his condition. I have also discussed with the assistant service manager and the patients family friend as agreed with the patient. Acute Respiratory failure with Hypoxia- Now on venturi mask Complete Opacification of right hemithorax secondary to Non small cell lung ca and loculated fluids Pneumonia likely gram negative Non small cell lung CA- diagnose 03/2019 SIRS with no organ dysfunction Severe Protein calorie malnutrition with cachexia COPD A fib Hyperkalemia Agitation/Anxiety Hx ot ETOH abuse remote history of TB diagnosis 1986, treated for 6 months-negative AFB 4 in March 2019 Plan Continue supportive care Hospice discussed and patient will like to speak to Rep Consult Pulmonary and Oncology- INPUT NOTED Continue IMCU care, patient with rising WBC, Refusing some labs and also still with shortness of breath with minimal exertion Ok to eat but monitor for aspiration Continue oxygen therapy, nebs patient definitely appears to be only amendable to palliative care but patient refused. Continue Abx Advance care planning DVT prophylaxis Current Visit: Yes Status: Acute Plan to address problem: SCD to BLE while in bed, Pt ambulatory at this time. Patient wants to persue his radiation treatment. Will be discharged once his o2 requirement is at goal. History Interval history: Patient was seen and evaluated this morning. Patient is on 60% high flow oxygen Hospitalist Physical - Physical exam Narrative exam: Narrative exam: General appearance: Present: cachectic, other (moderate distress)-high flow oxygen nc - EENT Eyes: Present: PERRL, EOM intact ENT: hearing intact, clear oral mucosa - Neck Neck: Present: supple, normal ROM - Respiratory Respiratory effort: labored, accessory muscle use Respiratory: bilateral: diminished - Extremities Extremities: no ischemia, pulses intact, pulses symmetrical, No edema, Full ROM Peripheral Pulses: within normal limits - Abdominal General gastrointestinal: soft, non-tender, non-distended, normal bowel sounds - Integumentary Integumentary: Present: warm, dry (tattoo) - Psychiatric Psychiatric: appropriate mood/affect - Neurologic Neurologic: CNII-XII intact, moves all extremities - Allied Health Allied health notes reviewed: nursing - Constitutional Vitals: Temp Pulse Resp BP Pulse Ox 97.8 F 83 18 125/79 90 05/19/19 02:02 05/19/19 02:52 05/19/19 02:02 05/19/19 02:52 05/19/19 02:02 General appearance: Present: no acute distress Results - Labs CBC & Chem 7: 05/15/19 05:20 05/13/19 23:15 Labs: Laboratory Last Values WBC 18.6 K/mm3 (4.5-11.0) H 05/15/19 05:20 RBC 3.60 M/mm3 (3.65-5.03) L 05/15/19 05:20 Hgb 10.9 gm/dl (11.8-15.2) L 05/15/19 05:20 Hct 33.0 % (35.5-45.6) L 05/15/19 05:20 MCV 92 fl (84-94) 05/15/19 05:20 MCH 30 pg (28-32) 05/15/19 05:20 MCHC 33 % (32-34) 05/15/19 05:20 RDW 18.3 % (13.2-15.2) H 05/15/19 05:20 Plt Count 468 K/mm3 (140-440) H 05/15/19 05:20 Lymph % (Auto) 3.4 % (13.4-35.0) L 05/13/19 09:36 Bracken % (Auto) 7.4 % (0.0-7.3) H 05/13/19 09:36 Eos % (Auto) 0.3 % (0.0-4.3) 05/13/19 09:36 Baso % (Auto) 0.1 % (0.0-1.8) 05/13/19 09:36 Lymph # 0.6 K/mm3 (1.2-5.4) L 05/13/19 09:36 Bracken # 1.4 K/mm3 (0.0-0.8) H 05/13/19 09:36 Eos # 0.1 K/mm3 (0.0-0.4) 05/13/19 09:36 Baso # 0.0 K/mm3 (0.0-0.1) 05/13/19 09:36 Seg Neutrophils % 88.8 % (40.0-70.0) H 05/13/19 09:36 Seg Neutrophils # 16.8 K/mm3 (1.8-7.7) H 05/13/19 09:36 PT 14.6 Sec. (12.2-14.9) 05/15/19 05:20 INR 1.17 (0.87-1.13) H 05/15/19 05:20 APTT 32.6 Sec. (24.2-36.6) 05/12/19 18:10 POC ABG pH 7.322 (7.35-7.45) L 05/13/19 11:04 POC ABG pCO2 55.6 (35-45) H 05/13/19 11:04 POC ABG pO2 68 (80-105) L 05/13/19 11:04 POC ABG HCO3 28.8 (22-26 mml/L) 05/13/19 11:04 POC ABG Total CO2 30 (23-27mmol/L) 05/13/19 11:04 POC ABG O2 Sat 91 05/13/19 11:04 POC ABG Base Excess 3 ((-2) - (+3)mmol/L) 05/13/19 11:04 32 % 05/13/19 11:04 Sodium 138 mmol/L (137-145) 05/13/19 23:15 Potassium 4.9 mmol/L (3.6-5.0) 05/13/19 23:15 Chloride 97.7 mmol/L (98-107) L 05/13/19 23:15 Carbon Dioxide 30 mmol/L (22-30) 05/13/19 23:15 15 mmol/L 05/13/19 23:15 BUN 24 mg/dL (9-20) H 05/13/19 23:15 0.5 mg/dL (0.8-1.5) L 05/13/19 23:15 Estimated GFR > 60 ml/min 05/13/19 23:15 48 % 05/13/19 23:15 Glucose 206 mg/dL (75-100) H 05/13/19 23:15 POC Glucose 165 (70-105) H 05/15/19 23:47 Calcium 9.1 mg/dL (8.4-10.2) 05/13/19 23:15 0.30 mg/dL (0.1-1.2) 05/13/19 23:15 AST 14 units/L (5-40) 05/13/19 23:15 ALT 18 units/L (7-56) 05/13/19 23:15 178 units/L (35-129) H 05/13/19 23:15 64 units/L (55-170) 05/12/19 18:34 CK-MB (CK-2) 7.6 ng/mL (0.0-4.0) H 05/12/19 18:34 CK-MB (CK-2) Rel Index 11.8 (0-4) H 05/12/19 18:34 < 0.010 ng/mL (0.00-0.029) 05/12/19 18:10 NT-Pro-B Natriuret Pep 878.4 pg/mL (0-900) 05/12/19 18:10 7.6 g/dL (6.3-8.2) 05/13/19 23:15 2.4 g/dL (3.9-5) L 05/13/19 23:15 0.5 % 05/13/19 23:15 Vancomycin Trough 5.2 ug/mL (5.0-20.0) 05/16/19 22:38 Active Medications - Current Medications Current Medications: Generic Name Dose Route Start Last Admin Trade Name Freq PRN Reason Stop Dose Admin Acetaminophen 650 mg 05/12/19 20:13 05/14/19 06:10 Tylenol PO 650 mg Q4H PRN Administration Pain MILD(1-3)/Fever >100.5/BOO Albuterol 2.5 mg 05/12/19 20:13 05/15/19 14:14 Proventil IH 2.5 mg Q4HRT PRN Administration Shortness Of Breath Amiodarone HCl 200 mg 05/13/19 10:00 05/18/19 09:28 Cordarone PO 200 mg DAILY FRANCISCO JAVIER Administration Arformoterol Tartrate 15 mcg 05/13/19 08:00 05/18/19 20:15 Brovana Nebu IH 15 mcg Q12HRT FRANCISCO JAVIER Administration Budesonide 0.5 mg 05/13/19 08:00 05/18/19 20:15 Pulmicort IH 0.5 mg Q12HRT FRANCISCO JAVIER Administration Diltiazem HCl 60 mg 05/12/19 21:00 05/19/19 02:52 Cardizem PO 60 mg Q6H FRANCISCO JAVIER Administration Enoxaparin Sodium 40 mg 05/14/19 10:00 05/18/19 09:28 Lovenox SUB-Q 40 mg QDAY@1000 FRANCISCO JAVIER Administration Folic Acid 1 mg 05/13/19 10:00 05/18/19 09:28 Folvite PO 1 mg QDAY FRANCISCO JAVIER Administration Furosemide 20 mg 05/13/19 10:00 05/18/19 09:28 Lasix PO 20 mg QDAY FRANCISCO JAVIER Administration Hydrocodone Bit/Homatropine Methylb 10 ml 05/13/19 07:15 Hydromet PO Q6H PRN Cough Cefepime HCl 2 gm in 100 mls @ 200 mls/hr 05/12/19 22:00 05/19/19 06:06 Maxipime/Ns 2 Gm/100 Ml IV 200 mls/hr Q8HR FRANCISCO JAVIER Administration Protocol Methylprednisolone Sodium Succinate 40 mg 05/13/19 14:00 05/19/19 06:06 Solu-Medrol IV 40 mg Q8HR FRANCISCO JAVIER Administration Nicotine 14 mg 05/13/19 10:00 05/18/19 09:28 Habitrol TD 14 mg QDAY FRANCISCO JAVIER Administration Ondansetron HCl 4 mg 05/12/19 20:13 Zofran IV Q8H PRN Nausea And Vomiting Oxycodone/Acetaminophen 1 tab 05/12/19 20:18 05/19/19 02:52 Percocet 5/325 PO 1 tab Q6H PRN Administration Pain, Moderate (4-6) Sodium Chloride 10 ml 05/12/19 22:00 05/18/19 21:15 Sodium Chloride Flush Syringe 10 Ml IV 10 ml BID FRANCISCO JAVIER Administration Sodium Chloride 10 ml 05/12/19 20:13 Sodium Chloride Flush Syringe 10 Ml IV PRN PRN LINE FLUSH Temazepam 15 mg 05/12/19 20:18 05/18/19 21:29 Restoril PO 15 mg QHS PRN Administration Sleep Thiamine HCl 100 mg 05/13/19 10:00 05/18/19 09:28 Vitamin B-1 PO 100 mg QDAY FRANCISCO JAVIER Administration
[2019-05-19] MEDS: MAGIC MOUTHWASH PO SCH ×3 (09:00→21:46)
[2019-05-19] MEDS: PULMICORT IH SCH ×2 (09:35→20:15)
[2019-05-19] MEDS: BROVANA NEBU IH SCH ×2 (09:36→20:15)
[2019-05-19] MEDS: HABITROL TD SCH (09:50)
[2019-05-19] MEDS: LOVENOX SUB-Q SCH (09:51)
[2019-05-19] MEDS: LASIX PO SCH (09:51)
[2019-05-19] MEDS: VITAMIN B-1 PO SCH (09:51)
[2019-05-19] MEDS: FOLVITE PO SCH (09:51)
[2019-05-19] MEDS: CORDARONE PO SCH (09:51)
[2019-05-19] MEDS: SODIUM CHLORIDE FLUSH SYRINGE 10 ML IV SCH ×2 (09:55→21:44)
[2019-05-19] MEDS ORDERED: ULTRAM PO PRN (14:12)
--- NOTE | 2019-05-19 14:52 | Discharge Summary ---
Providers - Providers Date of Admission: 05/12/19 20:13 Date of discharge: 05/20/19 Attending physician: HUNG SUN MD 05/13/19 08:41 Consult to Physician [CONS] Routine Comment: Consulting Provider: ROBERTH HALE Physician Instructions: Reason For Exam: SHORTNESS OF BREATH 05/13/19 09:26 Consult to Physician [CONS] Routine Comment: Consulting Provider: SERGO CONDE Physician Instructions: Reason For Exam: NON SMALL CELL LUNG CA. Prognostic eval 05/13/19 10:38 Consult to Interventional Radiology [CONS] Routine Consulting Provider: MELISSA COTTRELL Reason For Exam: Pleurx catheter placement to right pleural space Place consult to:: WAS NOTIFIED Notified:: Was contact made?: Yes If yes, spoke with:: Time called:: 10:51 Comment:: BRYAN Primary care physician: [facility] Hospitalization Reason for admission: acute on chronic hypoxic respiratory failure, stage IV l jia cancer Condition: Stable Hospital course: 68 YO Male with Right Lung Adenocarcinoma, Severe Malnutrition,COPD, TB in 1986 S/P Full course therapy, S/P radiation therapy today. Pt states that he has experienced shortness of breath, fatigue, and progressive weakness over the past 1 week with worsening symptoms over the past 4 days, with concomitant worsening of symptoms after radiation therapy today. Pt was instructed by his Oncologist to seek further care. Pt transported to [facility] via private vehicle. Pt seen and evaluated in ED and found to have Bilateral Pneumonia complicated by SIRS, as well as Lung Maligancy. Pt counseled regarding poor prognosis. Pt requests aggressive medical therapy. Pt admitted to [facility] Unit and initiated on Pneumonia Protocol for Healthcare Associated Pneumonia. Pt denies fever, chills, CP, Palpitations, Trauma, Hemoptysis, Skin Rash, Edema, or recent ill contacts. Prior Admission on 04/08/19 reviewed. All listed medication reconciled at time of admission. 30 minutes additional time dedicated to Advanced care planning, and discussion of goals of care. Chest xray: Lungs/Pleura: There is persistent complete opacification of the right hemithorax. Diffuse left lung interstitial opacities persist, these are slightly improved when compared with the prior exam. * PER IR "Patient was saturating 90% on a nonrebreather in mild respiratory distress with accessory muscle use. It is unclear if he could even tolerate the procedure. I performed a bedside ultrasound of his right pleural cavity which demonstrated numerous loculations making pleural catheter placement of limited benefit in addition to the mass in his right lung preventing expansion of the right lung. I tried to explain this to him, but the patient did not want to listen to this explanation, and therefore I contacted his discharging machine operator to explain why he was a suboptimal patient for this procedure. Patient returned to the floor." * I have explained to the patient the gravity and severity of his condition. I have also discussed with the discharging machine operator and the patients family friend as agreed with the patient. Patient is in respiratory failure and patient is on 60%, 25litres of oxygen. Patient is stage 4 lung cancer and patient is terminal and has very poor prognosis. patient was seen by oncologist and recommeded hospice. After extensive discussion patient want to be on hospice. Patient discharged to home on home hospice. Disposition: DC-50 TO HOSPICE (HOME) Time spent for discharge: 32 minutes - Discharge Diagnoses (1) Acute on chronic respiratory failure with hypoxia and hypercapnia Status: Acute (2) COPD (chronic obstructive pulmonary disease) Status: Acute Qualifiers: Chronic bronchitis type: mixed simple and mucopurulent (3) Lung malignancy Status: Acute Qualifiers: Laterality: right (4) Pneumonia Status: Acute Qualifiers: Pneumonia type: due to unspecified organism (5) Pleural effusion Status: Acute (6) Shortness of breath Status: Acute (7) History of TB (tuberculosis) Status: Chronic Core Measure Documentation - Palliative Care Palliative Care/ Comfort Measures: Not Applicable - Core Measures Any of the following diagnoses?: none Exam - Physical Exam Narrative exam: Narrative exam: General appearance: Present: cachectic, other (moderate distress)-high flow oxygen nc - EENT Eyes: Present: PERRL, EOM intact ENT: hearing intact, clear oral mucosa - Neck Neck: Present: supple, normal ROM - Respiratory Respiratory effort: labored, accessory muscle use Respiratory: bilateral: diminished - Extremities Extremities: no ischemia, pulses intact, pulses symmetrical, No edema, Full ROM Peripheral Pulses: within normal limits - Abdominal General gastrointestinal: soft, non-tender, non-distended, normal bowel sounds - Integumentary Integumentary: Present: warm, dry (tattoo) - Psychiatric Psychiatric: appropriate mood/affect - Neurologic Neurologic: CNII-XII intact, moves all extremities - Allied Health Allied health notes reviewed: nursing - Constitutional Vitals: Temp Pulse Resp BP Pulse Ox 97.6 F 83 20 129/78 94 05/19/19 13:07 05/19/19 14:35 05/19/19 13:07 05/19/19 14:35 05/19/19 13:07 Plan Activity: no restrictions Weight Bearing Status: Full Weight Bearing Diet: regular Follow up with: CAROLYNN REGALADO MD [Primary Care Provider] - 7 Days
[2019-05-19] MEDS: RESTORIL PO PRN (21:44)
[2019-05-20] MEDS: CARDIZEM PO SCH ×2 (04:00→10:25)
[2019-05-20] MEDS: PERCOCET 5/325 PO PRN ×2 (06:30→10:25)
[2019-05-20] MEDS: SOLU-Medrol IV SCH (06:42)
[2019-05-20 08:26] VITALS: BP 130/79
[2019-05-20] MEDS: BROVANA NEBU IH SCH (09:04)
[2019-05-20] MEDS: PULMICORT IH SCH (09:04)
[2019-05-20] MEDS: MAGIC MOUTHWASH PO SCH (10:21)
[2019-05-20] MEDS: FOLVITE PO SCH (10:21)
[2019-05-20] MEDS: CORDARONE PO SCH (10:21)
[2019-05-20] MEDS: LOVENOX SUB-Q SCH (10:21)
[2019-05-20] MEDS: VITAMIN B-1 PO SCH (10:21)
[2019-05-20] MEDS: LASIX PO SCH (10:21)
[2019-05-20] MEDS: HABITROL TD SCH (10:22)
[2019-05-20] MEDS: SODIUM CHLORIDE FLUSH SYRINGE 10 ML IV SCH (10:22)
--- NOTE | 2019-05-20 10:42 | Progress Note ---
Assessment and Plan Assessment and plan: 68 YO Male with Right Lung Adenocarcinoma, Severe Malnutrition,COPD, TB in 1986 S/P Full course therapy, S/P radiation therapy today. Pt states that he has experienced shortness of breath, fatigue, and progressive weakness over the past 1 week with worsening symptoms over the past 4 days, with concomitant worsening of symptoms after radiation therapy today. Pt was instructed by his Oncologist to seek further care. Pt transported to [facility] via private vehicle. Pt seen and evaluated in ED and found to have Bilateral Pneumonia complicated by SIRS, as well as Lung Maligancy. Pt counseled regarding poor prognosis. Pt requests aggressive medical therapy. Pt admitted to [facility] Unit and initiated on Pneumonia Protocol for Healthcare Associated Pneumonia. Pt denies fever, chills, CP, Palpitations, Trauma, Hemoptysis, Skin Rash, Edema, or recent ill contacts. Prior Admission on 04/08/19 reviewed. All listed medication reconciled at time of admission. 30 minutes additional time dedicated to Advanced care planning, and discussion of goals of care. Chest xray: Lungs/Pleura: There is persistent complete opacification of the right hemithorax. Diffuse left lung interstitial opacities persist, these are slightly improved when compared with the prior exam. * PER IR "Patient was saturating 90% on a nonrebreather in mild respiratory distress with accessory muscle use. It is unclear if he could even tolerate the procedure. I performed a bedside ultrasound of his right pleural cavity which demonstrated numerous loculations making pleural catheter placement of limited benefit in addition to the mass in his right lung preventing expansion of the right lung. I tried to explain this to him, but the patient did not want to listen to this explanation, and therefore I contacted his supervisory investigative specialist to explain why he was a suboptimal patient for this procedure. Patient returned to the floor." * I have explained to the patient the gravity and severity of his condition. I have also discussed with the supervisory investigative specialist and the patients family friend as agreed with the patient. Acute Respiratory failure with Hypoxia- Now on venturi mask Complete Opacification of right hemithorax secondary to Non small cell lung ca and loculated fluids Pneumonia likely gram negative Non small cell lung CA- diagnose 03/2019 SIRS with no organ dysfunction Severe Protein calorie malnutrition with cachexia COPD A fib Hyperkalemia Agitation/Anxiety Hx ot ETOH abuse remote history of TB diagnosis 1986, treated for 6 months-negative AFB 4 in March 2019 Plan Continue supportive care Consult Pulmonary and Oncology- INPUT NOTED Continue IMCU care, patient with rising WBC, Refusing some labs and also still with shortness of breath with minimal exertion Ok to eat but monitor for aspiration Continue oxygen therapy, nebs patient definitely appears to be only amendable to palliative care but patient refused. Continue Abx Advance care planning DVT prophylaxis Current Visit: Yes Status: Acute Plan to address problem: SCD to BLE while in bed, Pt ambulatory at this time. Yesterday patient was discharged home with home hospice, but later in the afternoon the nurse called me and told me the family refused to take him home. - Patient Problems (1) Acute on chronic respiratory failure with hypoxia and hypercapnia Current Visit: Yes Status: Acute (2) COPD (chronic obstructive pulmonary disease) Current Visit: Yes Status: Acute Qualifiers: Chronic bronchitis type: mixed simple and mucopurulent (3) Lung malignancy Current Visit: Yes Status: Acute Qualifiers: Laterality: right (4) Pneumonia Current Visit: Yes Status: Acute Qualifiers: Pneumonia type: due to unspecified organism (5) Pleural effusion Current Visit: No Status: Acute (6) Shortness of breath Current Visit: No Status: Acute (7) History of TB (tuberculosis) Current Visit: No Status: Chronic History Interval history: Patient was seen and evaluated this morning. Patient is on 60% high flow oxygen Hospitalist Physical - Physical exam Narrative exam: Narrative exam: General appearance: Present: cachectic, other (moderate distress)-high flow oxygen nc - EENT Eyes: Present: PERRL, EOM intact ENT: hearing intact, clear oral mucosa - Neck Neck: Present: supple, normal ROM - Respiratory Respiratory effort: labored, accessory muscle use Respiratory: bilateral: diminished - Extremities Extremities: no ischemia, pulses intact, pulses symmetrical, No edema, Full ROM Peripheral Pulses: within normal limits - Abdominal General gastrointestinal: soft, non-tender, non-distended, normal bowel sounds - Integumentary Integumentary: Present: warm, dry (tattoo) - Psychiatric Psychiatric: appropriate mood/affect - Neurologic Neurologic: CNII-XII intact, moves all extremities - Allied Health Allied health notes reviewed: nursing - Constitutional Vitals: Temp Pulse Resp BP Pulse Ox 97.8 F 96 H 20 130/79 95 05/20/19 08:04 05/20/19 09:06 05/20/19 09:06 05/20/19 08:04 05/20/19 09:18 General appearance: Present: no acute distress Results - Labs CBC & Chem 7: 05/15/19 05:20 05/13/19 23:15 Labs: Laboratory Last Values WBC 18.6 K/mm3 (4.5-11.0) H 05/15/19 05:20 RBC 3.60 M/mm3 (3.65-5.03) L 05/15/19 05:20 Hgb 10.9 gm/dl (11.8-15.2) L 05/15/19 05:20 Hct 33.0 % (35.5-45.6) L 05/15/19 05:20 MCV 92 fl (84-94) 05/15/19 05:20 MCH 30 pg (28-32) 05/15/19 05:20 MCHC 33 % (32-34) 05/15/19 05:20 RDW 18.3 % (13.2-15.2) H 05/15/19 05:20 Plt Count 468 K/mm3 (140-440) H 05/15/19 05:20 Lymph % (Auto) 3.4 % (13.4-35.0) L 05/13/19 09:36 [place] % (Auto) 7.4 % (0.0-7.3) H 05/13/19 09:36 Eos % (Auto) 0.3 % (0.0-4.3) 05/13/19 09:36 Baso % (Auto) 0.1 % (0.0-1.8) 05/13/19 09:36 Lymph # 0.6 K/mm3 (1.2-5.4) L 05/13/19 09:36 [place] # 1.4 K/mm3 (0.0-0.8) H 05/13/19 09:36 Eos # 0.1 K/mm3 (0.0-0.4) 05/13/19 09:36 Baso # 0.0 K/mm3 (0.0-0.1) 05/13/19 09:36 Seg Neutrophils % 88.8 % (40.0-70.0) H 05/13/19 09:36 Seg Neutrophils # 16.8 K/mm3 (1.8-7.7) H 05/13/19 09:36 PT 14.6 Sec. (12.2-14.9) 05/15/19 05:20 INR 1.17 (0.87-1.13) H 05/15/19 05:20 APTT 32.6 Sec. (24.2-36.6) 05/12/19 18:10 POC ABG pH 7.322 (7.35-7.45) L 05/13/19 11:04 POC ABG pCO2 55.6 (35-45) H 05/13/19 11:04 POC ABG pO2 68 (80-105) L 05/13/19 11:04 POC ABG HCO3 28.8 (22-26 mml/L) 05/13/19 11:04 POC ABG Total CO2 30 (23-27mmol/L) 05/13/19 11:04 POC ABG O2 Sat 91 05/13/19 11:04 POC ABG Base Excess 3 ((-2) - (+3)mmol/L) 05/13/19 11:04 32 % 05/13/19 11:04 Sodium 138 mmol/L (137-145) 05/13/19 23:15 Potassium 4.9 mmol/L (3.6-5.0) 05/13/19 23:15 Chloride 97.7 mmol/L (98-107) L 05/13/19 23:15 Carbon Dioxide 30 mmol/L (22-30) 05/13/19 23:15 15 mmol/L 05/13/19 23:15 BUN 24 mg/dL (9-20) H 05/13/19 23:15 0.5 mg/dL (0.8-1.5) L 05/13/19 23:15 Estimated GFR > 60 ml/min 05/13/19 23:15 48 % 05/13/19 23:15 Glucose 206 mg/dL (75-100) H 05/13/19 23:15 POC Glucose 165 (70-105) H 05/15/19 23:47 Calcium 9.1 mg/dL (8.4-10.2) 05/13/19 23:15 0.30 mg/dL (0.1-1.2) 05/13/19 23:15 AST 14 units/L (5-40) 05/13/19 23:15 ALT 18 units/L (7-56) 05/13/19 23:15 178 units/L (35-129) H 05/13/19 23:15 64 units/L (55-170) 05/12/19 18:34 CK-MB (CK-2) 7.6 ng/mL (0.0-4.0) H 05/12/19 18:34 CK-MB (CK-2) Rel Index 11.8 (0-4) H 05/12/19 18:34 < 0.010 ng/mL (0.00-0.029) 05/12/19 18:10 NT-Pro-B Natriuret Pep 878.4 pg/mL (0-900) 05/12/19 18:10 7.6 g/dL (6.3-8.2) 05/13/19 23:15 2.4 g/dL (3.9-5) L 05/13/19 23:15 0.5 % 05/13/19 23:15 Vancomycin Trough 5.2 ug/mL (5.0-20.0) 05/16/19 22:38 Active Medications - Current Medications Current Medications: Generic Name Dose Route Start Last Admin Trade Name Freq PRN Reason Stop Dose Admin Acetaminophen 650 mg 05/12/19 20:13 05/14/19 06:10 Tylenol PO 650 mg Q4H PRN Administration Pain MILD(1-3)/Fever >100.5/BOO Albuterol 2.5 mg 05/12/19 20:13 05/15/19 14:14 Proventil IH 2.5 mg Q4HRT PRN Administration Shortness Of Breath Amiodarone HCl 200 mg 05/13/19 10:00 05/20/19 10:21 Cordarone PO 200 mg DAILY FRANCISCO JAVIER Administration Arformoterol Tartrate 15 mcg 05/13/19 08:00 05/20/19 09:04 Brovana Nebu IH 15 mcg Q12HRT FRANCISCO JAVIER Administration Budesonide 0.5 mg 05/13/19 08:00 05/20/19 09:04 Pulmicort IH 0.5 mg Q12HRT FRANCISCO JAVIER Administration Diltiazem HCl 60 mg 05/12/19 21:00 05/20/19 10:25 Cardizem PO 60 mg Q6H FRANCISCO JAVIER Administration Enoxaparin Sodium 40 mg 05/14/19 10:00 05/20/19 10:21 Lovenox SUB-Q 40 mg QDAY@1000 FRANCISCO JAVIER Administration Folic Acid 1 mg 05/13/19 10:00 05/20/19 10:21 Folvite PO 1 mg QDAY FRANCISCO JAVIER Administration Furosemide 20 mg 05/13/19 10:00 05/20/19 10:21 Lasix PO 20 mg QDAY FRANCISCO JAVIER Administration Hydrocodone Bit/Homatropine Methylb 10 ml 05/13/19 07:15 Hydromet PO Q6H PRN Cough Lidocaine HCl 15 ml 05/19/19 08:00 05/20/19 10:21 Magic Mouthwash PO 15 ml TID FRANCISCO JAVIER Administration Methylprednisolone Sodium Succinate 40 mg 05/13/19 14:00 05/20/19 06:42 Solu-Medrol IV 40 mg Q8HR FRANCISCO AJVIER Administration Nicotine 14 mg 05/13/19 10:00 05/20/19 10:22 Habitrol TD 14 mg QDAY FRANCISCO JAVIER Administration Ondansetron HCl 4 mg 05/12/19 20:13 Zofran IV Q8H PRN Nausea And Vomiting Oxycodone/Acetaminophen 1 tab 05/12/19 20:18 05/20/19 10:25 Percocet 5/325 PO 1 tab Q6H PRN Administration Pain, Moderate (4-6) Sodium Chloride 10 ml 05/12/19 22:00 05/20/19 10:22 Sodium Chloride Flush Syringe 10 Ml IV 10 ml BID FRANCISCO JAVIER Administration Sodium Chloride 10 ml 05/12/19 20:13 Sodium Chloride Flush Syringe 10 Ml IV PRN PRN LINE FLUSH Temazepam 15 mg 05/12/19 20:18 05/19/19 21:44 Restoril PO 15 mg QHS PRN Administration Sleep Thiamine HCl 100 mg 05/13/19 10:00 05/20/19 10:21 Vitamin B-1 PO 100 mg QDAY FRANCISCO JAVIER Administration Tramadol HCl 50 mg 05/19/19 14:12 05/19/19 14:35 Ultram PO 50 mg Q6H PRN Administration Pain, Moderate (4-6) Nutrition/Malnutrition Assess - Dietary Evaluation Nutrition/Malnutrition Findings: Nutrition Notes Start: 05/19/19 17:23 Freq: Status: Active Protocol: Document 05/19/19 17:23 RM (Rec: 05/19/19 17:24 [id number]) Nutrition Notes Need for Assessment generated from: LOS Initial or Follow up Brief Note Height 5 ft 4 in Weight 55.565 kg [place] Body Weight (kg) 59.09 BMI 21.0 Subjective/Other Information Screened for LOS. PO intake 81% X 4 meals. Nutrition Intervention Revisit per MD consult or patient Sign Off request:
--- NOTE | 2019-05-20 11:00 | Progress Note ---
Assessment and Plan Acute on chronic hypoxemic respiratory failure. SIRS Malignant Right pleural effusion and atelectasis Non small cell lung CA- diagnosed 03/2019 Severe Protein calorie malnutrition with cachexia Tobacco use disorder, states he quit 2 weeks ago COPD Afib Hyperkalemia Agitation/Anxiety Hx of ETOH abuse Remote history of TB diagnosis 1986, treated for 6 months-negative AFB 4 in March 2019 Anemia that is normocytic. Adult failure to thrive. - prn thoracentesis for symptom relief - Patient has tumor infiltration of the right lung upper lobe and bronchus intermedius, no need for further bronchoscopy, need on going radiation therapy - NIPPV for work of breathing as needed - continue supplemental oxygen and wean to keep O2 sat's > 90% - continue aspiration precautions - continue bronchodilators with pulmonary hygiene per RT - continue systemic steroids with taper (reduced to 40mg IV q12h) - GI & VTE prophylaxis - AdenoCA treatment per heme-Onc team - Smoking cessation counselling done at the bedside - CIWA protocol, historically has needed this - Anxiety management - Nutritional supplements, get nutrition consult - complete empiric antibiotics. De-escalate as indicated - Monitor renal function, hemodynamics and electrolyte profile closely while on diuretic therapy - continue other care per attending / other consultants ... re-evaluate in am & prn CODE STATUS: FULL CODE Subjective Date of service: 05/20/19 Principal diagnosis: Ac on ch hypoxemic resp failure; R. lung atelectasis; NSCLC; Leukocytosis Interval history: Patient is seen today for: Acute on chronic hypoxemic respiratory failure; right recurrent malignant pleural effusion; Non-small cell lung cancer; Leukocytosis; Anemia; Adult failure to thrive. Seen and examined at bedside; 24hour events reviewed; nursing and respiratory care staff consulted; no adverse overnight events reported to me; doing better overall but remains on supplemental oxygen therapy; discharge planning ongoing; reportedly accepted to home hospice but no home to go to at this time; pleural effusion not ammenable to Pleur'x catheter placement re: complexity / septations; No N/V/F/C Objective Vital Signs - 12hr 05/20/19 05/20/19 05/20/19 02:00 04:00 04:39 Temperature 97.4 F L Pulse Rate 80 80 Pulse Rate [ Anterior Bilateral] Respiratory 18 Rate Respiratory Rate [Anterior Bilateral] Blood Pressure Blood Pressure 120/77 120/77 [Left] O2 Sat by Pulse 94 94 Oximetry 05/20/19 05/20/19 05/20/19 08:04 09:06 09:18 Temperature 97.8 F Pulse Rate 77 Pulse Rate [ 96 H Anterior Bilateral] Respiratory 20 Rate Respiratory 20 Rate [Anterior Bilateral] Blood Pressure 130/79 Blood Pressure [Left] O2 Sat by Pulse 96 95 95 Oximetry Constitutional: no acute distress, other (elderly cachectic looking male with chest wall tattoos and mildly increased respiratory effort at rest) Eyes: non-icteric ENT: oropharynx dry Neck: supple, no lymphadenopathy, no JVD Effort: mildly labored Ascultation: Bilateral: diminished breath sounds (right lung), rhonchi Percussion: Bilateral: dull (bases) Cardiovascular: regular rate and rhythm Gastrointestinal: normoactive bowel sounds, soft, non-tender, non-distended Integumentary: normal Extremities: no cyanosis, no edema, pulses normal, no ischemia or petechiae Neurologic: normal mental status, non-focal exam, pupils equal and round, CN II- XII normal, motor strength normal and Psychiatric: mood appropriate, affect normal CBC and BMP: 05/15/19 05:20 05/13/19 23:15 ABG, PT/INR, D-dimer: ABG POC ABG pH 7.322 (7.35-7.45) L 05/13/19 11:04 POC ABG pCO2 55.6 (35-45) H 05/13/19 11:04 POC ABG pO2 68 (80-105) L 05/13/19 11:04 POC ABG HCO3 28.8 (22-26 mml/L) 05/13/19 11:04 POC ABG Total CO2 30 (23-27mmol/L) 05/13/19 11:04 POC ABG O2 Sat 91 05/13/19 11:04 PT/INR, D-dimer PT 14.6 Sec. (12.2-14.9) 05/15/19 05:20 INR 1.17 (0.87-1.13) H 05/15/19 05:20 Abnormal lab findings: Abnormal Labs 05/12/19 05/12/19 05/12/19 18:10 18:10 18:34 WBC 17.8 H RBC Hgb Hct MCV MCHC RDW 18.4 H Plt Count 579 H Lymph % (Auto) 6.0 L [place] % (Auto) Lymph # 1.1 L [place] # 1.1 H Seg Neutrophils % 87.2 H Seg Neutrophils # 15.5 H INR 1.14 H POC ABG pH POC ABG pCO2 POC ABG pO2 Potassium 5.2 H Chloride 96.3 L BUN 22 H Creatinine 0.4 L Glucose POC Glucose Alkaline Phosphatase 242 H CK-MB (CK-2) 7.6 H CK-MB (CK-2) Rel Index 11.8 H Albumin 2.8 L 05/13/19 05/13/19 05/13/19 08:43 09:36 11:04 WBC 18.9 H RBC 3.62 L Hgb 10.8 L Hct 34.8 L MCV 96 H MCHC 31 L RDW 19.0 H Plt Count 463 H Lymph % (Auto) 3.4 L [place] % (Auto) 7.4 H Lymph # 0.6 L [place] # 1.4 H Seg Neutrophils % 88.8 H Seg Neutrophils # 16.8 H INR POC ABG pH 7.322 L POC ABG pCO2 55.6 H POC ABG pO2 68 L Potassium Chloride BUN Creatinine Glucose POC Glucose 178 H Alkaline Phosphatase CK-MB (CK-2) CK-MB (CK-2) Rel Index Albumin 05/13/19 05/15/19 05/15/19 23:15 05:20 05:20 WBC 18.6 H RBC 3.60 L Hgb 10.9 L Hct 33.0 L MCV MCHC RDW 18.3 H Plt Count 468 H Lymph % (Auto) [place] % (Auto) Lymph # [place] # Seg Neutrophils % Seg Neutrophils # INR 1.17 H POC ABG pH POC ABG pCO2 POC ABG pO2 Potassium Chloride 97.7 L BUN 24 H Creatinine 0.5 L Glucose 206 H POC Glucose Alkaline Phosphatase 178 H CK-MB (CK-2) CK-MB (CK-2) Rel Index Albumin 2.4 L 05/15/19 23:47 WBC RBC Hgb Hct MCV MCHC RDW Plt Count Lymph % (Auto) [place] % (Auto) Lymph # [place] # Seg Neutrophils % Seg Neutrophils # INR POC ABG pH POC ABG pCO2 POC ABG pO2 Potassium Chloride BUN Creatinine Glucose POC Glucose 165 H Alkaline Phosphatase CK-MB (CK-2) CK-MB (CK-2) Rel Index Albumin Chest x-ray: image reviewed Allied health notes reviewed: nursing (Adjust FIO2 as needed. If any increasing work of breathing, BIPAP)
[2019-05-20] MEDS ORDERED: SOLU-Medrol IV SCH (14:00)
== END 2019-05-20 14:08 | disposition hospice, home (50) | DRG 193 ==
LOC: ED 17:17 → 2B-ACE 20:13 → IMCU 05-13 11:41 → 2B-ACE 05-17 19:53
PROVIDERS: ADMIT Internal Medicine; ATTEND Internal Medicine
PROC: 4A033R1 Measurement of Arterial Saturation, Peripheral, Percutaneous Approach (ICD-10-PCS; principal; 2019-05-13)
DX: J18.9 Pneumonia, unspecified organism (principal); E43 Unspecified severe protein-calorie malnutrition; J96.21 Acute and chronic respiratory failure with hypoxia; J96.22 Acute and chronic respiratory failure with hypercapnia; R65.10 Systemic inflammatory response syndrome (SIRS) of non-infectious origin without acute organ dysfunction; C34.91 Malignant neoplasm of unspecified part of right bronchus or lung; J44.0 Chronic obstructive pulmonary disease with (acute) lower respiratory infection; R64 Cachexia; J98.11 Atelectasis; C34.81 Malignant neoplasm of overlapping sites of right bronchus and lung; F41.9 Anxiety disorder, unspecified; I48.91 Unspecified atrial fibrillation; Z51.5 Encounter for palliative care; R62.7 Adult failure to thrive; Z60.2 Problems related to living alone; E87.5 Hyperkalemia; Z86.11 Personal history of tuberculosis; Z92.3 Personal history of irradiation; Z82.49 Family history of ischemic heart disease and other diseases of the circulatory system; Z79.51 Long term (current) use of inhaled steroids; Z79.899 Other long term (current) drug therapy; Z68.21 Body mass index [BMI] 21.0-21.9, adult; Z87.891 Personal history of nicotine dependence
CPT/HCPCS: 36415; 36600; 71045; 76604; 80053; 80202; 82550; 82553; 82803; 82962; 83880; 84484; 85025; 85027; 85610; 85730; 87040; 87116; 93005; 93010; 94640; 94644; 94760; 96365; 96375; G0378; J0692; J1170; J1650; J2920; J3370; J7040

== ENCOUNTER 2019-05-24 12:20 | Inpatient (IN) | payer OTHER ==
[2019-05-24] MEDS ORDERED: VANCOMYCIN 1,000 MG in NACL 0.9% 500 ML 500 ML IV ONE (12:28)
[2019-05-24] MEDS ORDERED: NACL 0.9% 1000 ML IV ONE (12:28)
[2019-05-24] MEDS ORDERED: NACL 0.9% 500 ML 500 ML ONE (12:32)
[2019-05-24] MEDS ORDERED: NACL 0.9% 1000 ML 1,000 ML ONE (12:32)
[2019-05-24] MEDS ORDERED: MAXIPIME/NS 2 GM/100 ML 2 GM/100 ML BAG IV SCH ×2 (12:45→22:00)
[2019-05-24] MEDS ORDERED: VANCOMYCIN/NS 1 GM/250 ML 1 GM/250 ML BAG IV ONE (13:00)
[2019-05-24] MEDS ORDERED: VANCOMYCIN PHARMACY TO DOSE IV SCH (13:00)
[2019-05-24 13:10] LABS: Hematocrit 32.7 % (35.5-45.6); Hemoglobin 10.8 gm/dl (11.8-15.2); Mean Corpuscular HGB Conc 33 % (32-34); Mean Corpuscular Volume 91 fl (84-94); Platelet Count 214 K/mm3 (140-440); Red Blood Count 3.61 M/mm3 (3.65-5.03); Red Cell Distribution Width 19.1 % (13.2-15.2)
--- NOTE | 2019-05-24 13:11 | XRay Report ---
CHEST 1 VIEW INDICATION: sob. Shortness of breath. History of lung cancer. COMPARISON: 04/11/2019 FINDINGS: Support devices: None. Heart: Within normal limits. Lungs/Pleura: Complete whiteout of the right pneumothorax is seen on the previous exam. The opacifica tion is more extensive and a right mainstem bronchus is not identified. The left lung is unchanged wi th a diffuse reticular interstitial pattern. No pulmonary consolidation. No pneumothorax. Additional findings: None. IMPRESSION: 1. Complete atelectasis of the right lung presumably secondary to tumor. 2. No acute findings. Signer Name: Leonides Pierce MD Signed: 05/24/2019 1:06 PM Workstation Name: [id number]
[2019-05-24 13:18] LABS: Bilirubin,Urine NEG (Negative); Blood,Urine NEG (Negative); Color,Urine Yellow (Yellow); Mucus,Urine FEW /HPF; Protein,Urine <15 mg/dL mg/dL (Negative); RBC,Urine < 1.0 /HPF (0.0-6.0); Urobilinogen,Urine < 2.0 mg/dL (<2.0)
[2019-05-24 13:24] LABS: Alanine Aminotransferase 18 units/L (7-56); Albumin 1.6 g/dL (3.9-5); BUN/Creatinine Ratio 67; Blood Urea Nitrogen 20 mg/dL (9-20); Calcium 6.6 mg/dL (8.4-10.2); Hemolysis Index 29
[2019-05-24 14:24] LABS: Basophils % (Manual) 0 % (0.0-1.8); Eosinophils % (Manual) 0 % (0.0-4.3); Total Cells Counted 100
[2019-05-24 14:27] LABS: Anisocytosis Few; Platelet Estimate Consistent w Auto; Target Cells Rare
--- NOTE | 2019-05-24 15:00 | Emergency Department Report ---
ED General Adult HPI - General Chief complaint: Dyspnea/Respdistress Stated complaint: DELMY Time Seen by Provider: 05/24/19 12:25 Source: EMS Mode of arrival: Stretcher Limitations: Physical Limitation - History of Present Illness Initial comments: Patient presents to the emergency department via EMS for respiratory distress. Patient has a history of lung cancer and is actively receiving radiation therapy. Upon EMS arrival the patient was irregular rapid rate with O2 sat on room air of 90%. Patient was placed on a nonrebreather mask and transported to the emergency department. The patient is obtunded upon taking of history and has little to add -: unknown Improves with: none Worsens with: none Associated Symptoms: denies other symptoms Treatments Prior to Arrival: none - Related Data Previous Rx's Medication Instructions Recorded Last Taken Type ALBUTEROL Inhaler (OR & NICU) 2 puff IH QID PRN 30 Days #1 pump 04/17/19 Unknown Rx [ProAir HFA Inhaler] Amiodarone [Cordarone 200 MG TAB] 200 mg PO DAILY #30 tablet 04/17/19 Unknown Rx Benzonatate [Tessalon Perles] 200 mg PO Q8HR #30 capsule 04/17/19 Unknown Rx Fluticasone/Salmeterol [Advair 1 puff IH BID #1 blst.w.dev 04/17/19 Unknown Rx 250-50 Diskus] Folic Acid [Folvite] 1 mg PO QDAY #30 tablet 04/17/19 Unknown Rx Furosemide [Lasix] 20 mg PO QDAY #30 tablet 04/17/19 Unknown Rx Ipratropium/Albuterol Sulfate 1 ampul IH TIDRT #120 ampul.neb 04/17/19 Unknown Rx [DUONEB *Not for PRN Use*] Nicotine [Habitrol] 14 mg TD QDAY #30 patch 04/17/19 Unknown Rx Prednisone [predniSONE 10 mg 10 mg PO .TAPER #1 tab.ds.pk 04/17/19 Unknown Rx (6-Day Pack, 21 Tabs)] Temazepam [Restoril] 15 mg PO QHS PRN #7 capsule 04/17/19 Unknown Rx Thiamine [Vitamin B-1] 100 mg PO QDAY #30 tablet 04/17/19 Unknown Rx dilTIAZem [Cardizem] 60 mg PO Q6H #120 tablet 04/17/19 Unknown Rx oxyCODONE /ACETAMINOPHEN [Percocet 1 tab PO Q6H PRN #14 tablet 04/17/19 Unknown Rx 5/325 mg] oxyCODONE /ACETAMINOPHEN [Percocet 1 tab PO Q6H PRN #30 tablet 04/17/19 Unknown Rx 5/325 mg] Allergies Allergy/AdvReac Type Severity Reaction Status Date / Time No Known Allergies Allergy Verified 05/12/19 17:25 ED Review of Systems ROS: Stated complaint: DELMY Other details as noted in HPI Comment: Unobtainable due to pts medical conditions ED Past Medical Hx - Past Medical History Previous Medical History?: Yes Hx Congestive Heart Failure: Yes Hx COPD: Yes Hx Tuberculosis: Yes (treated 1986) Additional medical history: TB in . Lung CA currently under radiation therapy - Social History Smoking Status: Current Every Day Smoker Substance Use Type: None - Medications Home Medications: Home Medications Medication Instructions Recorded Confirmed Last Taken Type ALBUTEROL Inhaler (OR & NICU) 2 puff IH QID PRN 30 Days #1 pump 04/17/19 05/13/19 Unknown Rx [ProAir HFA Inhaler] Amiodarone [Cordarone 200 MG TAB] 200 mg PO DAILY #30 tablet 04/17/19 05/13/19 Unknown Rx Benzonatate [Tessalon Perles] 200 mg PO Q8HR #30 capsule 04/17/19 05/13/19 Unknown Rx Fluticasone/Salmeterol [Advair 1 puff IH BID #1 blst.w.dev 04/17/19 05/13/19 Unknown Rx 250-50 Diskus] Folic Acid [Folvite] 1 mg PO QDAY #30 tablet 04/17/19 05/13/19 Unknown Rx Furosemide [Lasix] 20 mg PO QDAY #30 tablet 04/17/19 05/13/19 Unknown Rx Ipratropium/Albuterol Sulfate 1 ampul IH TIDRT #120 ampul.neb 04/17/19 05/13/19 Unknown Rx [DUONEB *Not for PRN Use*] Nicotine [Habitrol] 14 mg TD QDAY #30 patch 04/17/19 05/13/19 Unknown Rx Prednisone [predniSONE 10 mg 10 mg PO .TAPER #1 tab.ds.pk 04/17/19 05/13/19 Unknown Rx (6-Day Pack, 21 Tabs)] Temazepam [Restoril] 15 mg PO QHS PRN #7 capsule 04/17/19 05/13/19 Unknown Rx Thiamine [Vitamin B-1] 100 mg PO QDAY #30 tablet 04/17/19 05/13/19 Unknown Rx dilTIAZem [Cardizem] 60 mg PO Q6H #120 tablet 04/17/19 05/13/19 Unknown Rx oxyCODONE /ACETAMINOPHEN [Percocet 1 tab PO Q6H PRN #14 tablet 04/17/19 05/13/19 Unknown Rx 5/325 mg] oxyCODONE /ACETAMINOPHEN [Percocet 1 tab PO Q6H PRN #30 tablet 04/17/19 05/13/19 Unknown Rx 5/325 mg] ED Physical Exam - General Limitations: Physical Limitation General appearance: lethargic, obtunded - Head Head exam: Present: atraumatic, normocephalic - Eye Eye exam: Present: normal appearance - ENT ENT exam: Present: mucous membranes dry - Neck Neck exam: Present: normal inspection - Respiratory Respiratory exam: Present: respiratory distress, decreased breath sounds (decreased breath throughout all lung leos on the right side;rales left lung leos ) - Cardiovascular Cardiovascular Exam: Present: normal rhythm, tachycardia. Absent: systolic murmur, diastolic murmur, rubs, gallop - GI/Abdominal GI/Abdominal exam: Present: soft, normal bowel sounds. Absent: distended, tenderness - Rectal Rectal exam: Present: deferred - Extremities Exam Extremities exam: Present: normal inspection - Back Exam Back exam: Present: normal inspection - Neurological Exam Neurological exam: Present: alert, oriented X3, CN II-XII intact. Absent: motor sensory deficit - Psychiatric Psychiatric exam: Present: normal affect, normal mood - Skin Skin exam: Present: warm, dry, intact, normal color. Absent: rash ED Course Vital Signs 05/24/19 05/24/19 05/24/19 12:12 12:21 12:30 Temperature 100.3 F H Pulse Rate 123 H 121 H 121 H Respiratory 23 26 H 23 Rate Blood Pressure 120/79 120/79 O2 Sat by Pulse 99 100 99 Oximetry 05/24/19 05/24/19 05/24/19 12:38 13:00 13:30 Temperature 100.8 F H Pulse Rate 113 H 115 H Respiratory 31 H 26 H Rate Blood Pressure 125/84 116/84 O2 Sat by Pulse 99 100 Oximetry 05/24/19 05/24/19 05/24/19 14:00 14:30 15:00 Temperature Pulse Rate 112 H 111 H 111 H Respiratory 20 14 27 H Rate Blood Pressure 130/89 104/79 114/77 O2 Sat by Pulse 96 98 Oximetry ED Medical Decision Making - Lab Data Result diagrams: 05/24/19 12:50 05/24/19 12:50 Critical Care Time: Yes Critical care time in (mins) excluding proc time.: 45 Critical care attestation.: If time is entered above; I have spent that time in minutes in the direct care of this critically ill patient, excluding procedure time. ED Disposition Clinical Impression: Sepsis, Lung cancer Disposition: OP ADMIT IP TO THIS HOSP Is pt being admited?: No Does the pt Need Aspirin: No Condition: Fair Referrals: PRIMARY CARE, [Primary Care Provider] - 3-5 Days
[2019-05-24] MEDS ORDERED: SODIUM CHLORIDE FLUSH SYRINGE 10 ML IV PRN (16:18)
[2019-05-24] MEDS ORDERED: MORPHINE IV PRN (16:18)
[2019-05-24] MEDS ORDERED: PROVENTIL IH PRN (16:18)
[2019-05-24] MEDS ORDERED: PERCOCET 5/325 PO PRN (16:18)
--- NOTE | 2019-05-24 16:18 | History and Physical Report ---
History of Present Illness Chief complaint: I cant breathe History of present illness: 68 YO Male with Right Lung Adenocarcinoma currently undergoing radiation therapy, Severe Malnutrition, COPD, TB in 1986 S/P Full course therapy, Nicotine Dependence. Pt is lethargic at time of exam and is able to speak in short sen tences intermittently. The patient is unable to give detailed history. Pt history taken from EMS, ED staff, and medical record. EMS notified by family due to difficulty breathing today. Upon arrival the patient was found to be in distress and transported to [facility]. Pt seen and evaluated in ED and found to have Sepsis, Acute Hypoxemia Respiratory Failure, Acidosis, as well as Right Lung Opacification suspected secondary to malignancy and Healthcare Associated pneumonia. Pt counseled regarding poor prognosis. Pt admitted to IMCU and initiated on Pneumonia Protocol for Healthcare Associated Pneumonia as well as Sepsis protocol. No reports of fever, chills, CP, Palpitations, Trauma, Hemoptysis, Skin Rash, Edema, or recent ill contacts. Prior Admission on 05/12/19 reviewed. All listed medication reconciled at time of admission. 30 minutes additional time dedicated to Advanced care planning, and discussion of goals of care. Pt has poor prognosis, but declined hospice care, and requests aggressive therapy. Past History Past Medical History: cancer, COPD, other (Severe malnutrition) Past Surgical History: No surgical history, Other (reviewed) Social history: single, lives with family, smoking. denies: alcohol abuse, prescription drug abuse Family history: no significant family history, other (reviewed) Medications and Allergies Allergies Allergy/AdvReac Type Severity Reaction Status Date / Time No Known Allergies Allergy Verified 05/12/19 17:25 Home Medications Medication Instructions Recorded Confirmed Last Taken Type ALBUTEROL Inhaler (OR & NICU) 2 puff IH QID PRN 30 Days #1 pump 04/17/19 05/24/19 05/24/19 Rx [ProAir HFA Inhaler] Folic Acid [Folvite] 1 mg PO QDAY #30 tablet 04/17/19 05/24/19 05/24/19 Rx Furosemide [Lasix] 20 mg PO QDAY #30 tablet 04/17/19 05/24/19 05/24/19 Rx Temazepam [Restoril] 15 mg PO QHS PRN #7 capsule 04/17/19 05/24/19 05/23/19 Rx Thiamine [Vitamin B-1] 100 mg PO QDAY #30 tablet 04/17/19 05/24/19 05/24/19 Rx oxyCODONE /ACETAMINOPHEN [Percocet 1 tab PO Q6H PRN #14 tablet 04/17/19 05/24/19 05/24/19 Rx 5/325 mg] Active Meds: Active Medications Cefepime HCl (Maxipime/Ns 2 Gm/100 Ml) 2 gm in 100 mls @ 200 mls/hr IV Q12HR FRANCISCO JAVIER; Protocol Vancomycin HCl 750 mg/ Sodium (Chloride) 265 mls @ 166.667 mls/hr IV Q24H FRANCISCO JAVIER Review of Systems ROS unobtainable: due to mental status Exam - Constitutional Vitals: Temp Pulse Resp BP Pulse Ox 100.8 F H 111 H 27 H 114/77 98 05/24/19 12:38 05/24/19 15:00 05/24/19 15:00 05/24/19 15:00 05/24/19 14:30 General appearance: Present: severe distress, cachectic, disheveled - EENT Eyes: Present: miosis ENT: hearing decreased - Neck Neck: Present: supple, normal ROM - Respiratory Respiratory effort: labored Respiratory: right: diminished, rhonchi - Cardiovascular Rhythm: other (tachycardia) Heart Sounds: Present: S1 & S2. Absent: rub, click - Extremities Extremities: pulses symmetrical, No edema Peripheral Pulses: abnormal (capillary refill greater than 3.5 seconds) - Abdominal General gastrointestinal: Present: soft, non-tender, non-distended, normal bowel sounds Male genitourinary: Present: normal - Integumentary Integumentary: Present: clear, dry, clammy, decreased turgor - Musculoskeletal Musculoskeletal: generalized weakness - Psychiatric Psychiatric: no appropriate mood/affect, no intact judgment & insight, no memory intact - Neurologic Neurologic: CNII-XII intact, no focal deficits, moves all extremities, no gait normal Results - Labs CBC & Chem 7: 05/24/19 12:50 05/24/19 12:50 Labs: Abnormal lab results 05/24/19 05/24/19 05/24/19 Range/Units 12:50 12:50 12:50 WBC 30.5 H (4.5-11.0) K/mm3 RBC 3.61 L (3.65-5.03) M/mm3 Hgb 10.8 L (11.8-15.2) gm/dl Hct 32.7 L (35.5-45.6) % RDW 19.1 H (13.2-15.2) % Seg Neuts % (Manual) 99.0 H (40.0-70.0) % Lymphocytes % (Manual) 0 L (13.4-35.0) % Seg Neutrophils # Man 30.2 H (1.8-7.7) K/mm3 Lymphocytes # (Manual) 0.0 L (1.2-5.4) K/mm3 POC ABG pCO2 (35-45) POC ABG pO2 (80-105) Carbon Dioxide 31 H (22-30) mmol/L Creatinine 0.3 L (0.8-1.5) mg/dL Lactic Acid 2.60 H* (0.7-2.0) mmol/L Calcium 6.6 L (8.4-10.2) mg/dL Total Protein 4.0 L (6.3-8.2) g/dL Albumin 1.6 L (3.9-5) g/dL 05/24/19 05/24/19 05/24/19 Range/Units 13:42 14:43 15:30 WBC (4.5-11.0) K/mm3 RBC (3.65-5.03) M/mm3 Hgb (11.8-15.2) gm/dl Hct (35.5-45.6) % RDW (13.2-15.2) % Seg Neuts % (Manual) (40.0-70.0) % Lymphocytes % (Manual) (13.4-35.0) % Seg Neutrophils # Man (1.8-7.7) K/mm3 Lymphocytes # (Manual) (1.2-5.4) K/mm3 POC ABG pCO2 66.2 H (35-45) POC ABG pO2 169 H (80-105) Carbon Dioxide (22-30) mmol/L Creatinine (0.8-1.5) mg/dL Lactic Acid 3.30 H* 2.20 H* (0.7-2.0) mmol/L Calcium (8.4-10.2) mg/dL Total Protein (6.3-8.2) g/dL Albumin (3.9-5) g/dL Assessment and Plan - Patient Problems (1) Sepsis Current Visit: Yes Status: Acute Qualifiers: Severe sepsis shock status: unspecified Plan to address problem: Sepsis protocol: Admit to IMCU, IVF resuscitation therapy, Blood cultures, chest x ray, urinalysis, CBC, CMP, lactic acid level, monitor uop q shift. (2) Pneumonia Current Visit: Yes Status: Acute Qualifiers: Laterality: right Plan to address problem: Pneumonia protocol: IV antibiotic therapy, blood cultures, chest x ray, supplemental oxygen, nebulizer therapy, pulse oximetry, (3) Acute on chronic respiratory failure with hypoxia and hypercapnia Current Visit: No Status: Acute Plan to address problem: Supplemental oxygen, nebulizer therapy, NIPPV as clinically indicated, chest x ray, pulse oximetry, treat pneumonia, (4) Advance care planning Current Visit: No Status: Acute Plan to address problem: Poor prognosis, Pt declines hospice care and desires to pursue aggressive therapy (5) COPD (chronic obstructive pulmonary disease) Current Visit: No Status: Acute Qualifiers: Chronic bronchitis type: mixed simple and mucopurulent Plan to address problem: supplemental oxygen, nebulizer therapy, NIPPV, supportive care. (6) Lung malignancy Current Visit: Yes Status: Acute Qualifiers: Laterality: right Lung location: overlapping sites Qualified Code(s): C34.81 - Malignant neoplasm of overlapping sites of right bronchus and lung Plan to address problem: Outpatient oncology f/u. Pt currently undergoing pallative radiation therapy. (7) Acidosis Current Visit: Yes Status: Acute Plan to address problem: IVF resuscitation therapy, treat pneumonia, serial lactic acid level (8) DVT prophylaxis Current Visit: No Status: Acute Plan to address problem: SCD to BLE while in bed, prophylactic lovenox
[2019-05-24] MEDS ORDERED: NACL 0.45% 3,000 ML IV SCH (19:00)
[2019-05-24 19:45] VITALS: BP 106/66
[2019-05-24] MEDS: SODIUM CHLORIDE FLUSH SYRINGE 10 ML IV SCH (22:55)
[2019-05-24] MEDS: MAXIPIME/NS 2 GM/100 ML 2 GM/100 ML BAG IV SCH (23:14)
[2019-05-24] MEDS: NACL 0.45% 1,000 ML IV SCH (23:50)
[2019-05-25] MEDS ORDERED: LOVENOX SUB-Q SCH ×2 (10:00)
[2019-05-25] MEDS: MAXIPIME/NS 2 GM/100 ML 2 GM/100 ML BAG IV SCH (10:26)
[2019-05-25] MEDS: SODIUM CHLORIDE FLUSH SYRINGE 10 ML IV SCH (10:26)
[2019-05-25] MEDS: NACL 0.45% 1,000 ML IV SCH (10:49)
--- NOTE | 2019-05-25 15:18 | Discharge Summary ---
Providers - Providers Date of Admission: 05/24/19 16:18 Attending physician: BREEZY ENAMORADO MD [facility] Condition: Stable Hospital course: 68 YO Male with Right Lung Adenocarcinoma currently undergoing radiation therapy, Severe Malnutrition, COPD, TB in 1986 S/P Full course therapy, Nicotine Dependence. Pt is lethargic at time of exam and is able to speak in short sentences intermittently. The patient is unable to give detailed history. Pt history taken from EMS, ED staff, and medical record. EMS notified by family due to difficulty breathing today. Upon arrival the patient was found to be in distress and transported to [facility]. Pt seen and evaluated in ED and found to have Sepsis, Acute Hypoxemia Respiratory Failure, Acidosis, as well as Right Lung Opacification suspected secondary to malignancy and Healthcare Associated pneumonia. Pt counseled regarding poor prognosis. Pt admitted to [facility] and initiated on Pneumonia Protocol for Healthcare Associated Pneumonia as well as Sepsis protocol. No reports of fever, chills, CP, Palpitations, Trauma, Hemoptysis, Skin Rash, Edema, or recent ill contacts. Prior Admission on 05/12/19 reviewed. All listed medication reconciled at time of admission. 30 minutes additional time dedicated to Advanced care planning, and discussion of goals of care. Pt has poor prognosis, but declined hospice care, and requests aggressive therapy. There appears to be some family dynamics ongoing about the patients care. Pt condition unforunatley is not amendable to therapy at this time and he wants to be discharged back home with hospice. Per CM, Hospice discussed with 3 people that are available to care for him. Patient agreeable to be discharged and continue with Hospice Unable to undergo radiation therapy (1) Sepsis ruled out (2)Loculated empyema- adenocarcinoma of the right lung. Not surgical ammendable (3) Acute on chronic respiratory failure with hypoxia and hypercapnia (4) Advance care planning Current Visit: No Status: Acute Plan to address problem: Poor prognosis, Pt declines hospice care and desires to pursue aggressive therapy (5) COPD (chronic obstructive pulmonary disease) WITH ACUTE EXACERBATION (6) Lung malignancy (7) Acidosis Disposition: DC-50 TO HOSPICE (HOME) Core Measure Documentation - Palliative Care Palliative Care/ Comfort Measures: Hospice Care Exam - Physical Exam Narrative exam: General appearance: Present: severe distress, cachectic, disheveled - EENT Eyes: Present: miosis ENT: hearing decreased - Neck Neck: Present: supple, normal ROM - Respiratory Respiratory effort: labored Respiratory: right: diminished, rhonchi - Cardiovascular Rhythm: other (tachycardia) Heart Sounds: Present: S1 & S2. Absent: rub, click - Extremities Extremities: pulses symmetrical, No edema Peripheral Pulses: abnormal (capillary refill greater than 3.5 seconds) - Abdominal General gastrointestinal: Present: soft, non-tender, non-distended, normal bowel sounds Male genitourinary: Present: normal - Integumentary Integumentary: Present: clear, dry, clammy, decreased turgor - Musculoskeletal Musculoskeletal: generalized weakness - Psychiatric Psychiatric: no appropriate mood/affect, no intact judgment & insight, no memory intact - Neurologic Neurologic: CNII-XII intact, no focal deficits, moves all extremities, no gait normal - Constitutional Vitals: Temp Pulse Resp BP Pulse Ox 98.1 F 92 H 24 106/66 95 05/25/19 08:00 05/25/19 12:00 05/25/19 12:00 05/24/19 19:30 05/25/19 12:00 Plan Activity: advance as tolerated, fall precautions Diet: low fat Follow up with: PRIMARY CARE, [Referring] - 3-5 Days
[2019-05-25] MEDS ORDERED: VANCOMYCIN 750 MG in NACL 0.9% 250ML 250 ML IV SCH (16:00)
[2019-05-26] MEDS ORDERED: DUONEB *Not for PRN Use IH ONE (08:27)
== END 2019-05-25 18:15 | disposition hospice, home (50) | DRG 189 ==
LOC: ED 12:20 → IMCU 16:18
PROVIDERS: ADMIT Internal Medicine; ATTEND Internal Medicine
PROC: 4A033R1 Measurement of Arterial Saturation, Peripheral, Percutaneous Approach (ICD-10-PCS; principal; 2019-05-24)
DX: J96.21 Acute and chronic respiratory failure with hypoxia (principal); J18.9 Pneumonia, unspecified organism; E43 Unspecified severe protein-calorie malnutrition; J86.9 Pyothorax without fistula; E87.2 Acidosis; J44.1 Chronic obstructive pulmonary disease with (acute) exacerbation; J44.0 Chronic obstructive pulmonary disease with (acute) lower respiratory infection; C34.81 Malignant neoplasm of overlapping sites of right bronchus and lung; J96.22 Acute and chronic respiratory failure with hypercapnia; I50.9 Heart failure, unspecified; F17.200 Nicotine dependence, unspecified, uncomplicated; Z68.21 Body mass index [BMI] 21.0-21.9, adult; Z86.11 Personal history of tuberculosis; Z79.899 Other long term (current) drug therapy
CPT/HCPCS: 36415; 36600; 71045; 80053; 81001; 82140; 82803; 83880; 85007; 85025; 85730; 87040; 87086; 94760; 96361; 96365; 96367; G0378; J0692; J1650; J3370; J7030; J7040; J7050

== ENCOUNTER 2019-05-26 02:18 | Inpatient (IN) | payer SELFPAY ==
[2019-05-26] MEDS ORDERED: DUONEB *Not for PRN Use IH ONE (03:05)
--- NOTE | 2019-05-26 03:23 | XRay Report ---
CHEST 1 VIEW 2:54 AM INDICATION / CLINICAL INFORMATION: Dyspnea. COMPARISON: 05/24/2019. FINDINGS: SUPPORT DEVICES: None. HEART / MEDIASTINUM: No significant abnormality. LUNGS / PLEURA: Complete opacification of the right hemithorax has not changed. Mild to moderate diff use interstitial disease in the left lung is stable. No pneumothorax. ADDITIONAL FINDINGS: No significant additional findings. IMPRESSION: No significant interval change. Signer Name: Kevin Bustillo MD Signed: 05/26/2019 3:19 AM Workstation Name: [id number]
--- NOTE | 2019-05-26 03:38 | Emergency Department Report ---
ED Shortness of Breath HPI - General Chief Complaint: Dyspnea/Respdistress Stated Complaint: DELMY Time Seen by Provider: 05/26/19 02:50 Source: EMS Mode of arrival: Stretcher Limitations: Physical Limitation - History of Present Illness Initial Comments: PT with h/o right lung adenocarcinoma, who presents to ER in respiratory distress, hypoxic, and chest pain. He was in hospital for similar symptoms and signed out ama yesterday. He is not coorperative with h and p. He was offered hospice while in the hospital, but he refused. Thoracentesis was attempted but aborted d/t hypoxia. MD Complaint: shortness of breath -: Gradual Radiation: right arm Pain Scale: 10 Quality: aching Consistency: constant Improves With: oxygen Worsens With: nothing Known History Of: COPD - Related Data Previous Rx's Medication Instructions Recorded Last Taken Type ALBUTEROL Inhaler (OR & NICU) 2 puff IH QID PRN 30 Days #1 pump 04/17/19 05/24/19 Rx [ProAir HFA Inhaler] Folic Acid [Folvite] 1 mg PO QDAY #30 tablet 04/17/19 05/24/19 Rx Furosemide [Lasix TAB] 20 mg PO QDAY #30 tablet 04/17/19 05/24/19 Rx Temazepam [Restoril] 15 mg PO QHS PRN #7 capsule 04/17/19 05/23/19 Rx Thiamine [Vitamin B-1] 100 mg PO QDAY #30 tablet 04/17/19 05/24/19 Rx oxyCODONE /ACETAMINOPHEN [Percocet 1 tab PO Q6H PRN #14 tablet 04/17/19 05/24/19 Rx 5/325 mg] Allergies Allergy/AdvReac Type Severity Reaction Status Date / Time No Known Allergies Allergy Verified 05/12/19 17:25 ED Review of Systems ROS: Stated complaint: DELMY Other details as noted in HPI Comment: All other systems reviewed and negative Eyes: denies: eye pain Respiratory: SOB at rest Cardiovascular: chest pain, dyspnea on exertion ED Past Medical Hx - Past Medical History Previous Medical History?: Yes Hx Congestive Heart Failure: Yes Hx COPD: Yes Hx Tuberculosis: Yes (treated 1986) Additional medical history: TB in . Lung CA currently under radiation therapy - Surgical History Past Surgical History?: No - Social History Smoking Status: Former Smoker Substance Use Type: None - Medications Home Medications: Home Medications Medication Instructions Recorded Confirmed Last Taken Type ALBUTEROL Inhaler (OR & NICU) 2 puff IH QID PRN 30 Days #1 pump 04/17/19 05/24/19 05/24/19 Rx [ProAir HFA Inhaler] Folic Acid [Folvite] 1 mg PO QDAY #30 tablet 04/17/19 05/24/19 05/24/19 Rx Furosemide [Lasix TAB] 20 mg PO QDAY #30 tablet 04/17/19 05/24/19 05/24/19 Rx Temazepam [Restoril] 15 mg PO QHS PRN #7 capsule 04/17/19 05/24/19 05/23/19 Rx Thiamine [Vitamin B-1] 100 mg PO QDAY #30 tablet 04/17/19 05/24/19 05/24/19 Rx oxyCODONE /ACETAMINOPHEN [Percocet 1 tab PO Q6H PRN #14 tablet 04/17/19 05/24/19 05/24/19 Rx 5/325 mg] ED Physical Exam - General Limitations: Physical Limitation General appearance: in distress - Head Head exam: Present: atraumatic, normocephalic - Eye Eye exam: Present: normal appearance, PERRL, EOMI Pupils: Present: normal accommodation - ENT ENT exam: Present: normal exam, normal orophraynx - Neck Neck exam: Present: normal inspection - Respiratory Respiratory exam: Present: respiratory distress, wheezes, accessory muscle use (inc) - Cardiovascular Cardiovascular Exam: Present: tachycardia - GI/Abdominal GI/Abdominal exam: Present: soft - Back Exam Back exam: Present: normal inspection - Neurological Exam Neurological exam: Present: altered ED Course Vital Signs 05/26/19 02:39 Temperature 99.6 F Pulse Rate 103 H Respiratory 29 H Rate Blood Pressure 139/46 O2 Sat by Pulse 100 Oximetry ED Medical Decision Making - Lab Data Result diagrams: 05/26/19 04:25 - EKG Data -: EKG Interpreted by Me EKG shows normal: sinus rhythm Rate: tachycardia - EKG Data When compared to previous EKG there are: no significant change Interpretation: nonspecific ST-T wave vincent - Radiology Data Radiology results: report reviewed, image reviewed - Medical Decision Making hypoxic: r. lung cancer, terminal? unsure of hospice status, pt states no one from hospice contacted him, req oxygen, admit for obs, oxygen set up. Critical care attestation.: If time is entered above; I have spent that time in minutes in the direct care of this critically ill patient, excluding procedure time. ED Disposition Clinical Impression: Shortness of breath, Acute on chronic respiratory failure with hypoxia and hypercapnia Disposition: OP ADMIT IP TO THIS HOSP Is pt being admited?: Yes Does the pt Need Aspirin: No Condition: Stable Referrals: CAROLYNN PEREZ MD [Primary Care Provider] - 3-5 Days
[2019-05-26 05:05] LABS: Creatine Kinase MB 2.8 ng/mL (0.0-4.0)
[2019-05-26 05:06] LABS: Alanine Aminotransferase 31 units/L (7-56); Albumin 2.6 g/dL (3.9-5); BUN/Creatinine Ratio 55; Blood Urea Nitrogen 22 mg/dL (9-20); Calcium 8.8 mg/dL (8.4-10.2); Hemolysis Index 6
[2019-05-26 06:13] LABS: ABG Base Excess 7.5 mmol/L (-2.0-3.0); ABG HCO3 32.9 mmol/L (20.0-26.0); ABG Methemoglobin 0.5 % (0.0-1.5); ABG Oxygen Saturation 94.9 % (95.0-99.0); ABG PCO2 49.9 mm Hg; ABG PH 7.436 pH Units (7.350-7.450); ABG PO2 68.4 mm Hg (80.0-90.0)
[2019-05-26] MEDS ORDERED: ZOFRAN IV PRN (06:14)
[2019-05-26 06:23] LABS: Hematocrit 31.8 % (35.5-45.6); Hemoglobin 10.5 gm/dl (11.8-15.2); Mean Corpuscular HGB Conc 33 % (32-34); Mean Corpuscular Volume 92 fl (84-94); Red Blood Count 3.45 M/mm3 (3.65-5.03); Red Cell Distribution Width 18.8 % (13.2-15.2)
--- NOTE | 2019-05-26 06:23 | History and Physical Report ---
<JOS CHAVES Raudel - Last Filed: 05/26/19 06:51> History of Present Illness Date of examination: 05/26/19 History of present illness: 68-year-old male with non-small cell lung, complete opacification of the right lung cancer COPD, remote history of TB, comes to the emergency room complaining shortness of breath. The patient was admitted on the and discharged yesterday, he was seen for shortness of breath. It was documented that the patient had pneumonia however the official read of the x-ray state that there is no pneumonia. He was recommended for hospice, case management discussed this with both significant other and the rest of the family. The patient has no insurance, he has not followed up with oncologist for further radiation, he was deemed a poor candidate for treatment with poor prognosis. Place on a nonrebreather in the emergency room Review Of Systems: Constitutional: no weight loss, fever, chills Ears, eyes, nose, mouth and throat: no nasal congestion, no nasal discharge, no sinus pressure, blurry vision, diplopia Neck: No neck pain or rigidity. Cardiovascular: No palpitations, chest pain Respiratory: No cough Gastrointestinal: No hematochezia, abdominal pain Genitourinary : no dysuria, frequency , hematuria Musculoskeletal: no muscle ache , joint pain Integumentary: no rash, no pruritis Neurological: no parathesias, focal weakness Endocrine: no cold or heat intolerance, no polyuria or polydipsia Hematologic/Lymphatic: no easy bruising, no easy bleeding, no gland swelling Allergic/Immunologic: no urticaria, no angioedema. PAST MEDICAL HISTORY:non-small cell lung cancer COPD, remote history of TB PAST SURGICAL HISTORY:nONE FAMILY HISTORY:hypertension, diabetes SOCIAL HISTORY: Denies tobacco, drugs, alcohol Medications and Allergies Allergies Allergy/AdvReac Type Severity Reaction Status Date / Time No Known Allergies Allergy Verified 05/12/19 17:25 Home Medications Medication Instructions Recorded Confirmed Last Taken Type ALBUTEROL Inhaler (OR & NICU) 2 puff IH QID PRN 30 Days #1 pump 04/17/19 05/26/19 05/24/19 Rx [ProAir HFA Inhaler] Folic Acid [Folvite] 1 mg PO QDAY #30 tablet 04/17/19 05/26/19 05/24/19 Rx Furosemide [Lasix TAB] 20 mg PO QDAY #30 tablet 04/17/19 05/26/19 05/24/19 Rx Temazepam [Restoril] 15 mg PO QHS PRN #7 capsule 04/17/19 05/26/19 05/23/19 Rx Thiamine [Vitamin B-1] 100 mg PO QDAY #30 tablet 04/17/19 05/26/19 05/24/19 Rx oxyCODONE /ACETAMINOPHEN [Percocet 1 tab PO Q6H PRN #14 tablet 04/17/19 05/26/19 05/24/19 Rx 5/325 mg] Active Meds: Active Medications Acetaminophen (Tylenol) 650 mg PO Q4H PRN PRN Reason: Pain MILD(1-3)/Fever >100.5/BOO Albuterol/Ipratropium (Duoneb *Not For Prn Use*) 1 ampul IH Q6HRT [facility] Enoxaparin Sodium (Lovenox) 30 mg SUB-Q QDAY [facility] Methylprednisolone Sodium Succinate (Solu-Medrol) 125 mg IV Q6H [facility] Ondansetron HCl (Zofran) 4 mg IV Q8H PRN PRN Reason: Nausea And Vomiting Sodium Chloride (Sodium Chloride Flush Syringe 10 Ml) 10 ml IV BID [facility] Sodium Chloride (Sodium Chloride Flush Syringe 10 Ml) 10 ml IV PRN PRN PRN Reason: LINE FLUSH Exam - Physical Exam Narrative exam: General Apperance: The patient sitting in bed no acute distress HEENT: Normocephalic, atraumatic. Pupils equally round and reactive to light, extraocular movement intact, and no sclericterus or JVD or thyromegaly or nodul e. Neck supple, no carotid bruit, mucous membranes moist, no exudate or erythema Heart: S1-S2, regular is rhythm Lungs: Decreased breath sounds over the right, breathing comfortable Abdomen: Positive bowel sounds, soft, nontender, nondistended, no organomegaly Extremities: No edema cyanosis clubbing Skin: no rash, nodule, warm and dry Neuro:CN 2 -12 intact, motor/sensory intact, speech is fluent - Constitutional Vitals: Temp Pulse Resp BP Pulse Ox 99.6 F 103 H 29 H 139/46 100 05/26/19 02:39 05/26/19 02:39 05/26/19 02:39 05/26/19 02:39 05/26/19 02:39 Results - Labs CBC & Chem 7: 05/26/19 06:05 05/26/19 04:25 Labs: Abnormal lab results 05/26/19 05/26/19 Range/Units 04:25 Unknown ABG pO2 68.4 L (80.0-90.0) mm Hg ABG HCO3 32.9 H (20.0-26.0) mmol/L ABG O2 Saturation 94.9 L (95.0-99.0) % ABG Base Excess 7.5 H (-2.0-3.0) mmol/L ABG Hemoglobin 10.8 L (14.0-18.0) gm/dl Oxyhemoglobin 92.7 L (95.0-99.0) % Chloride 91.4 L (98-107) mmol/L Carbon Dioxide 32 H (22-30) mmol/L BUN 22 H (9-20) mg/dL Creatinine 0.4 L (0.8-1.5) mg/dL Glucose 162 H (75-100) mg/dL Alkaline Phosphatase 167 H (35-129) units/L Total Creatine Kinase 26 L (55-170) units/L CK-MB (CK-2) Rel Index 10.7 H (0-4) Total Protein 5.7 L D (6.3-8.2) g/dL Albumin 2.6 L (3.9-5) g/dL Lipase 8 L (13-60) units/L - Imaging and Cardiology Chest x-ray: report reviewed Assessment and Plan Assessment Acute on chronic respiratory failure Non-small cell lung cancer Elevated CK index COPD plan Admit the patient to medicine Start steroids, breathing treatment, high flow oxygen Consult case management Patient was seen by oncology on the previous admission He was told to follow with his oncologist for further radiation treatment He was given the poor prognosis, consult pulmonary, check cardiac enzymes DVT prophylaxis follow [facility] <QUINTON REN - Last Filed: 05/26/19 17:55> History of Present Illness Date of admission: 05/26/19 06:14 Chief complaint: PULMONARY AND CRITICAL CARE CONSULTATION. DR. ENAMORADO THANK YOU FOR ASKING US TO PARTICIPATE IN THE CARE OF THIS PATIENT. 68-year-old male with non-small cell lung, complete opacification of the right lung cancer COPD, remote history of TB, comes to the emergency room complaining shortness of breath. The patient was admitted on the and discharged yesterday, he was seen for shortness of breath. It was documented that the patient had pneumonia however the official read of the x-ray state that there is no pneumonia. He was recommended for hospice, case management discussed this with both significant other and the rest of the family. The patient has no insurance, he has not followed up with oncologist for further radiation, he was deemed a poor candidate for treatment with poor prognosis. Place on a nonrebreather in the emergency room. Patient presently resting on 5L O2. O2 saturation 94%. Patient sleepy and not answering the questions. No acute respiratory distress at rest. Chest Xray 05/26/19 findings: complete opacification of the right hemithorax has not vincent nged. Mild to moderate diffuse interstitial disease in the left lung is stable. No pneumothorax. Impression: no significant interval change. Past History Past Medical History: cancer, COPD, other (Non-small cell lung cancer, Remote TB ) Past Surgical History: No surgical history Social history: no significant social history, other (Denies drug use). denies: alcohol abuse Family history: diabetes, hypertension Medications and Allergies Active Meds: Active Medications Acetaminophen (Tylenol) 650 mg PO Q4H PRN PRN Reason: Pain MILD(1-3)/Fever >100.5/BOO Albuterol/Ipratropium (Duoneb *Not For Prn Use*) 1 ampul IH Q6HRT [facility] Last Admin: 05/26/19 12:36 Dose: 1 ampul Documented by: Enoxaparin Sodium (Lovenox) 40 mg SUB-Q QDAY [facility] Last Admin: 05/26/19 09:59 Dose: 40 mg Documented by: Methylprednisolone Sodium Succinate (Solu-Medrol) 125 mg IV Q6HR [facility] Last Admin: 05/26/19 13:56 Dose: 125 mg Documented by: Ondansetron HCl (Zofran) 4 mg IV Q8H PRN PRN Reason: Nausea And Vomiting Last Admin: 05/26/19 06:44 Dose: 4 mg Documented by: Sodium Chloride (Sodium Chloride Flush Syringe 10 Ml) 10 ml IV BID [facility] Last Admin: 05/26/19 13:57 Dose: 10 ml Documented by: Sodium Chloride (Sodium Chloride Flush Syringe 10 Ml) 10 ml IV PRN PRN PRN Reason: LINE FLUSH Review of Systems All systems: negative Respiratory: shortness of breath Exam - Constitutional Vitals: Temp Pulse Resp BP Pulse Ox 98.0 F 102 H 22 136/80 100 05/26/19 11:23 05/26/19 11:23 05/26/19 11:23 05/26/19 11:23 05/26/19 11:23 General appearance: Present: no acute distress, cachectic, other (weak, sleepy) - EENT Eyes: Present: PERRL, EOM intact - Neck Neck: Present: supple - Respiratory Respiratory effort: normal Respiratory: right: diminished, left: rales - Cardiovascular Rhythm: regular - Extremities Extremities: no ischemia - Abdominal General gastrointestinal: Present: soft, non-tender - Integumentary Integumentary: Present: warm, dry - Psychiatric Psychiatric: depressed - Neurologic Neurologic: moves all extremities Results - Labs CBC & Chem 7: 05/26/19 06:05 05/26/19 04:25 Labs: Abnormal lab results 05/26/19 05/26/19 05/26/19 Range/Units 04:25 06:05 07:45 WBC 14.1 H (4.5-11.0) K/mm3 RBC 3.45 L (3.65-5.03) M/mm3 Hgb 10.5 L (11.8-15.2) gm/dl Hct 31.8 L (35.5-45.6) % RDW 18.8 H (13.2-15.2) % Seg Neuts % (Manual) 91.0 H (40.0-70.0) % Lymphocytes % (Manual) 1.0 L (13.4-35.0) % Seg Neutrophils # Man 12.8 H (1.8-7.7) K/mm3 Lymphocytes # (Manual) 0.1 L (1.2-5.4) K/mm3 ABG pO2 (80.0-90.0) mm Hg ABG HCO3 (20.0-26.0) mmol/L ABG O2 Saturation (95.0-99.0) % ABG Base Excess (-2.0-3.0) mmol/L ABG Hemoglobin (14.0-18.0) gm/dl Oxyhemoglobin (95.0-99.0) % Chloride 91.4 L (98-107) mmol/L Carbon Dioxide 32 H (22-30) mmol/L BUN 22 H (9-20) mg/dL Creatinine 0.4 L (0.8-1.5) mg/dL Glucose 162 H (75-100) mg/dL Alkaline Phosphatase 167 H (35-129) units/L Total Creatine Kinase 26 L < 7 L (55-170) units/L CK-MB (CK-2) Rel Index 10.7 H (0-4) Total Protein 5.7 L D (6.3-8.2) g/dL Albumin 2.6 L (3.9-5) g/dL Lipase 8 L (13-60) units/L 05/26/19 Range/Units Unknown WBC (4.5-11.0) K/mm3 RBC (3.65-5.03) M/mm3 Hgb (11.8-15.2) gm/dl Hct (35.5-45.6) % RDW (13.2-15.2) % Seg Neuts % (Manual) (40.0-70.0) % Lymphocytes % (Manual) (13.4-35.0) % Seg Neutrophils # Man (1.8-7.7) K/mm3 Lymphocytes # (Manual) (1.2-5.4) K/mm3 ABG pO2 68.4 L (80.0-90.0) mm Hg ABG HCO3 32.9 H (20.0-26.0) mmol/L ABG O2 Saturation 94.9 L (95.0-99.0) % ABG Base Excess 7.5 H (-2.0-3.0) mmol/L ABG Hemoglobin 10.8 L (14.0-18.0) gm/dl Oxyhemoglobin 92.7 L (95.0-99.0) % Chloride (98-107) mmol/L Carbon Dioxide (22-30) mmol/L BUN (9-20) mg/dL Creatinine (0.8-1.5) mg/dL Glucose (75-100) mg/dL Alkaline Phosphatase (35-129) units/L Total Creatine Kinase (55-170) units/L CK-MB (CK-2) Rel Index (0-4) Total Protein (6.3-8.2) g/dL Albumin (3.9-5) g/dL Lipase (13-60) units/L - Imaging and Cardiology Chest x-ray: report reviewed, image reviewed, other (05/26/19 findings: complete opacification of the right hemithorax has not changed. Mild to moderate diffuse interstitial disease in the left lung is stable. No pneumothorax. Impression: no significant interval change.) Assessment and Plan 68-year-old male with non-small cell lung, complete opacification of the right lung cancer COPD, remote history of TB, comes to the emergency room complaining shortness of breath. The patient was admitted on the and discharged yesterday, he was seen for shortness of breath. It was documented that the patient had pneumonia however the official read of the x-ray state that there is no pneumonia. He was recommended for hospice, case management discussed this with both significant other and the rest of the family. The patient has no insurance, he has not followed up with oncologist for further radiation, he was deemed a poor candidate for treatment with poor prognosis. Place on a nonrebreather in the emergency room - Patient Problems (1) Lung cancer Current Visit: No Status: Chronic Qualifiers: Laterality: right Lung location: overlapping sites Qualified Code(s): C34.81 - Malignant neoplasm of overlapping sites of right bronchus and lung Plan to address problem: management as per oncology (2) COPD (chronic obstructive pulmonary disease) Current Visit: No Status: Acute Qualifiers: Chronic bronchitis type: mixed simple and mucopurulent Plan to address problem: O2 5L via nasal canula Albuterol and Atrovent aerosol treatment Continue IV solumedrol Continue subcutaneous Lovenox Recommend GI prophylaxis
[2019-05-26] MEDS: SOLU-Medrol IV SCH ×3 (06:44→19:35)
[2019-05-26 08:03] LABS: Band Neutrophils # (Manual) 0.7 K/mm3; Basophils % (Manual) 0 % (0.0-1.8); Eosinophils % (Manual) 0 % (0.0-4.3); Total Cells Counted 100
[2019-05-26 08:04] LABS: Anisocytosis 1+; Macrocytosis 1+
[2019-05-26 08:05] LABS: Platelet Estimate Consistent w Auto; Target Cells Rare
[2019-05-26 08:05] LABS: INR 1.12 (0.87-1.13)
[2019-05-26 08:06] LABS: Partial Thromboplastin Time 25.8 Sec. (24.2-36.6)
[2019-05-26 08:07] LABS: Platelet Count TNR K/mm3 (140-440)
[2019-05-26] MEDS: DUONEB *Not for PRN Use IH SCH ×4 (08:50→20:19)
[2019-05-26] MEDS: LOVENOX SUB-Q SCH (09:59)
[2019-05-26] MEDS ORDERED: LOVENOX SUB-Q ONE (10:01)
[2019-05-26] MEDS: SODIUM CHLORIDE FLUSH SYRINGE 10 ML IV SCH ×2 (13:57→21:01)
--- NOTE | 2019-05-26 15:04 | Event Note ---
Date: 05/26/19 Patient seen and examined, clinical condition discussed in detail. Patient request to be made DNR. Case management present during discussion
--- NOTE | 2019-05-26 17:53 | Consultation ---
History of Present Illness Consult date: 05/26/19 Reason for consult: dyspnea, cough, COPD History of present illness: PULMONARY CRITICAL CARE CONSULT THANK YOU DR. ENAMORADO FOR ASKING US TO PARTICIPATE IN THE CARE OF THIS PATIENT. 68-year-old male with non-small cell lung, complete opacification of the right lung cancer COPD, remote history of TB, comes to the emergency room complaining shortness of breath. The patient was admitted on the and discharged yesterday, he was seen for shortness of breath. It was documented that the patient had pneumonia however the official read of the x-ray state that there is no pneumonia. He was recommended for hospice, case management discussed this with both significant other and the rest of the family. The patient has no insurance, he has not followed up with oncologist for further radiation, he was deemed a poor candidate for treatment with poor prognosis. Place on a nonrebreather in the emergency room. Patient presently resting on 5L O2. O2 saturation 94%. Patient sleepy and not answering the questions. No acute respiratory distress at rest. Chest Xray 05/26/19 findings: complete opacification of the right hemithorax has not changed. Mild to moderate diffuse interstitial disease in the left lung is stable. No pneumothorax. Impression: no significant interval change. Past History Past Medical History: cancer, COPD, other (Non-small cell lung cancer, Remote TB ) Past Surgical History: No surgical history Social history: no significant social history, other (Denies drug use). denies: alcohol abuse Family history: diabetes, hypertension Medications and Allergies Allergies Allergy/AdvReac Type Severity Reaction Status Date / Time No Known Allergies Allergy Verified 05/12/19 17:25 Home Medications Medication Instructions Recorded Confirmed Last Taken Type ALBUTEROL Inhaler (OR & NICU) 2 puff IH QID PRN 30 Days #1 pump 04/17/19 05/26/19 05/24/19 Rx [ProAir HFA Inhaler] Folic Acid [Folvite] 1 mg PO QDAY #30 tablet 04/17/19 05/26/19 05/24/19 Rx Furosemide [Lasix TAB] 20 mg PO QDAY #30 tablet 04/17/19 05/26/19 05/24/19 Rx Temazepam [Restoril] 15 mg PO QHS PRN #7 capsule 04/17/19 05/26/19 05/23/19 Rx Thiamine [Vitamin B-1] 100 mg PO QDAY #30 tablet 04/17/19 05/26/19 05/24/19 Rx oxyCODONE /ACETAMINOPHEN [Percocet 1 tab PO Q6H PRN #14 tablet 04/17/19 05/26/19 05/24/19 Rx 5/325 mg] Active Meds: Active Medications Acetaminophen (Tylenol) 650 mg PO Q4H PRN PRN Reason: Pain MILD(1-3)/Fever >100.5/BOO Albuterol/Ipratropium (Duoneb *Not For Prn Use*) 1 ampul IH Q6HRT [facility] Last Admin: 05/26/19 14:56 Dose: Not Given Documented by: Enoxaparin Sodium (Lovenox) 40 mg SUB-Q QDAY [facility] Last Admin: 05/26/19 09:59 Dose: 40 mg Documented by: Methylprednisolone Sodium Succinate (Solu-Medrol) 125 mg IV Q6HR [facility] Last Admin: 05/26/19 13:56 Dose: 125 mg Documented by: Ondansetron HCl (Zofran) 4 mg IV Q8H PRN PRN Reason: Nausea And Vomiting Last Admin: 05/26/19 06:44 Dose: 4 mg Documented by: Sodium Chloride (Sodium Chloride Flush Syringe 10 Ml) 10 ml IV BID [facility] Last Admin: 05/26/19 13:57 Dose: 10 ml Documented by: Sodium Chloride (Sodium Chloride Flush Syringe 10 Ml) 10 ml IV PRN PRN PRN Reason: LINE FLUSH Review of Systems All systems: negative Physical Examination Vital signs: Vital Signs Temp Pulse Resp BP Pulse Ox 99.6 F 103 H 29 H 139/46 100 05/26/19 02:39 05/26/19 02:39 05/26/19 02:39 05/26/19 02:39 05/26/19 02:39 General appearance: no acute distress, asleep Eyes: non-icteric ENT: oropharynx moist Neck: supple, no JVD Ascultation: Right: diminished breath sounds, Left: rales Cardiovascular: regular rate and rhythm Gastrointestinal: soft, non-tender Extremities: no cyanosis, no edema Musculoskeletal: no deformities non-focal exam depressed Results - Laboratory Findings CBC and BMP: 05/26/19 06:05 05/26/19 04:25 ABG ABG pH 7.436 pH Units (7.350-7.450) 05/26/19 Unknown ABG pCO2 49.9 mm Hg 05/26/19 Unknown ABG pO2 68.4 mm Hg (80.0-90.0) L 05/26/19 Unknown ABG O2 Saturation 94.9 % (95.0-99.0) L 05/26/19 Unknown PT/INR, D-dimer PT 14.1 Sec. (12.2-14.9) 05/26/19 07:45 INR 1.12 (0.87-1.13) 05/26/19 07:45 Abnormal lab findings: Abnormal Labs 05/26/19 05/26/19 05/26/19 04:25 06:05 07:45 WBC 14.1 H RBC 3.45 L Hgb 10.5 L Hct 31.8 L RDW 18.8 H Seg Neuts % (Manual) 91.0 H Lymphocytes % (Manual) 1.0 L Seg Neutrophils # Man 12.8 H Lymphocytes # (Manual) 0.1 L ABG pO2 ABG HCO3 ABG O2 Saturation ABG Base Excess ABG Hemoglobin Oxyhemoglobin Chloride 91.4 L Carbon Dioxide 32 H BUN 22 H Creatinine 0.4 L Glucose 162 H Alkaline Phosphatase 167 H Total Creatine Kinase 26 L < 7 L CK-MB (CK-2) Rel Index 10.7 H Total Protein 5.7 L D Albumin 2.6 L Lipase 8 L 05/26/19 Unknown WBC RBC Hgb Hct RDW Seg Neuts % (Manual) Lymphocytes % (Manual) Seg Neutrophils # Man Lymphocytes # (Manual) ABG pO2 68.4 L ABG HCO3 32.9 H ABG O2 Saturation 94.9 L ABG Base Excess 7.5 H ABG Hemoglobin 10.8 L Oxyhemoglobin 92.7 L Chloride Carbon Dioxide BUN Creatinine Glucose Alkaline Phosphatase Total Creatine Kinase CK-MB (CK-2) Rel Index Total Protein Albumin Lipase - Diagnostic Findings Chest x-ray: report reviewed, image reviewed Additional studies: Chest XRAY 05/26/19: Findings: Complete opacification of the right hemithorax has not changed. Mild to moderate diffuse interstitial disease in the left lung is stable. no pneumothorax. Impression: No significant interval change. Assessment and Plan 68-year-old male with non-small cell lung, complete opacification of the right lung cancer COPD, remote history of TB, comes to the emergency room complaining shortness of breath. The patient was admitted on the and discharged yesterday, he was seen for shortness of breath. It was documented that the patient had pneumonia however the official read of the x-ray state that there is no pneumonia. He was recommended for hospice, case management discussed this with both significant other and the rest of the family. The patient has no insurance, he has not followed up with oncologist for further radiation, he was deemed a poor candidate for treatment with poor prognosis. Place on a nonrebreather in the emergency room. Patient presently resting on 5L O2. O2 saturation 94%. Patient sleepy and not answering the questions. No acute respiratory distress at rest. Chest Xray 05/26 findings: complete opacification of the right hemithorax has not changed. Mild to moderate diffuse interstitial disease in the left lung is stable. No pneumothorax. Impression: no significant interval change. - Patient Problems (1) Lung cancer Current Visit: No Status: Chronic Qualifiers: Laterality: right Lung location: overlapping sites Qualified Code(s): C34.81 - Malignant neoplasm of overlapping sites of right bronchus and lung Plan to address problem: management as per oncology (2) COPD (chronic obstructive pulmonary disease) Current Visit: No Status: Acute Qualifiers: Chronic bronchitis type: mixed simple and mucopurulent Plan to address problem: O2 5L via nasal canula Albuterol and Atrovent aerosol treatment Continue IV solumedrol Continue subcutaneous Lovenox Recommend GI prophylaxis
[2019-05-27] MEDS: SOLU-Medrol IV SCH ×5 (00:24→23:36)
[2019-05-27] MEDS ORDERED: AMBIEN PO ONE (00:27)
[2019-05-27] MEDS: DUONEB *Not for PRN Use IH SCH ×4 (02:12→19:56)
[2019-05-27] MEDS: LOVENOX SUB-Q SCH (09:16)
--- NOTE | 2019-05-27 09:16 | Progress Note ---
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 The patient was admitted on the and discharged on he was seen for shortness of breath. It was documented that the patient had pneumonia however the official read of the x-ray state that there is no pneumonia. He was recommended for hospice, case management discussed this with both significant other and the rest of the family. The patient has no insurance, he has not followed up with oncologist for further radiation, he was deemed a poor candidate for treatment with poor prognosis. Place on a nonrebreather in the emergency room * Patient has been discharged from Radiation therapy and currently in hospice. * Attempt during prior admission to place pleurx catheter showed no clear site or benefit. * Imaging studies shows complete opacification of Right lung and deviation of trachea to left Acute on chronic Respiratory failure with severe hypoxia and hypercapenia secondary to metastatic lung disease Loculated empyema with underlying adenocarcinoma-not surgically amendable COPD with exacerbation Leukocytosis- Improving Severe Protein calorie malnutrition with underlying chronic disease PLAN Continue supportive care Discussed extensively with the patient, anticipate discharge with inpatient hospice back home in am continue nebs Production Planning Manager consult pain control dvt/gi prophy History Interval history: Patient seen and examined, remains with shortness of breath, some slight improvement Noted today. Tolerating diet Hospitalist Physical - Physical exam Narrative exam: VITAL SIGNS: Reviewed. GENERAL: The patient appears normally developed cachectic and chronically ill, Vital signs as documented. HEAD: No signs of head trauma. EYES: Pupils are equal. Extraocular motions intact. EARS: Hearing grossly intact. MOUTH: Oropharynx is normal. NECK: No adenopathy, no JVD. CHEST: Chest with diminished with left lobe WHEEZING. No rales, or rhonchi. CARDIAC: Regular rate and rhythm. S1 and S2, without murmurs, gallops, or rubs. VASCULAR: No Edema. Peripheral pulses normal and equal in all extremities. ABDOMEN: Soft, non tender and non distended. No rebound or guarding, and no masses palpated. Bowel Sounds normal. MUSCULOSKELETAL: Good range of motion of all major joints. Extremities without clubbing, cyanosis or edema. NEUROLOGIC EXAM: Alert and oriented x 3 No focal sensory or strength deficits. Speech normal. Follows commands. PSYCHIATRIC: Mood ANXIOUS. SKIN: detail exam as documented in skin assessment - Constitutional Vitals: Temp Pulse Resp BP Pulse Ox 98.5 F 95 H 24 123/83 91 05/27/19 07:30 05/27/19 08:16 05/27/19 08:16 05/27/19 07:30 05/27/19 08:16 General appearance: Present: no acute distress, cachectic, other (weak, sleepy) Results - Labs CBC & Chem 7: 05/26/19 06:05 05/26/19 04:25 Labs: Laboratory Last Values WBC 14.1 K/mm3 (4.5-11.0) H 05/26/19 06:05 RBC 3.45 M/mm3 (3.65-5.03) L 05/26/19 06:05 Hgb 10.5 gm/dl (11.8-15.2) L 05/26/19 06:05 Hct 31.8 % (35.5-45.6) L 05/26/19 06:05 MCV 92 fl (84-94) 05/26/19 06:05 MCH 30 pg (28-32) 05/26/19 06:05 MCHC 33 % (32-34) 05/26/19 06:05 RDW 18.8 % (13.2-15.2) H 05/26/19 06:05 Plt Count TNR 05/26/19 06:05 Add Manual Diff Complete 05/26/19 06:05 Total Counted 100 05/26/19 06:05 Seg Neutrophils % Bulking Machine Operator 05/26/19 06:05 Seg Neuts % (Manual) 91.0 % (40.0-70.0) H 05/26/19 06:05 5.0 % 05/26/19 06:05 1.0 % (13.4-35.0) L 05/26/19 06:05 Reactive Lymphs % (Man) 0 % 05/26/19 06:05 3.0 % (0.0-7.3) 05/26/19 06:05 0 % (0.0-4.3) 05/26/19 06:05 0 % (0.0-1.8) 05/26/19 06:05 0 % 05/26/19 06:05 0 % 05/26/19 06:05 0 % 05/26/19 06:05 0 % 05/26/19 06:05 Nucleated RBC % Not Reportable 05/26/19 06:05 Seg Neutrophils # Man 12.8 K/mm3 (1.8-7.7) H 05/26/19 06:05 Band Neutrophils # 0.7 K/mm3 05/26/19 06:05 0.1 K/mm3 (1.2-5.4) L 05/26/19 06:05 Abs React Lymphs (Man) 0.0 K/mm3 05/26/19 06:05 0.4 K/mm3 (0.0-0.8) 05/26/19 06:05 0.0 K/mm3 (0.0-0.4) 05/26/19 06:05 0.0 K/mm3 (0.0-0.1) 05/26/19 06:05 0.0 K/mm3 05/26/19 06:05 0.0 K/mm3 05/26/19 06:05 0.0 K/mm3 05/26/19 06:05 Blast Cells # 0.0 K/mm3 05/26/19 06:05 WBC Morphology Not Reportable 05/26/19 06:05 Hypersegmented Neuts Not Reportable 05/26/19 06:05 Hyposegmented Neuts Not Reportable 05/26/19 06:05 Hypogranular Neuts Not Reportable 05/26/19 06:05 Not Reportable 05/26/19 06:05 Not Reportable 05/26/19 06:05 Not Reportable 05/26/19 06:05 Not Reportable 05/26/19 06:05 Not Reportable 05/26/19 06:05 Not Reportable 05/26/19 06:05 Consistent w auto 05/26/19 06:05 Not Reportable 05/26/19 06:05 Plt Clumps, EDTA Not Reportable 05/26/19 06:05 Not Reportable 05/26/19 06:05 Not Reportable 05/26/19 06:05 Not Reportable 05/26/19 06:05 Plt Morphology Comment Not Reportable 05/26/19 06:05 RBC Morphology Not Reportable 05/26/19 06:05 Dimorphic RBCs Not Reportable 05/26/19 06:05 Not Reportable 05/26/19 06:05 Not Reportable 05/26/19 06:05 Not Reportable 05/26/19 06:05 1+ 05/26/19 06:05 Not Reportable 05/26/19 06:05 1+ 05/26/19 06:05 Not Reportable 05/26/19 06:05 Not Reportable 05/26/19 06:05 Not Reportable 05/26/19 06:05 Rare 05/26/19 06:05 Not Reportable 05/26/19 06:05 Not Reportable 05/26/19 06:05 Not Reportable 05/26/19 06:05 Not Reportable 05/26/19 06:05 Not Reportable 05/26/19 06:05 Not Reportable 05/26/19 06:05 Not Reportable 05/26/19 06:05 Not Reportable 05/26/19 06:05 Not Reportable 05/26/19 06:05 Acanthocytes (Spur) Not Reportable 05/26/19 06:05 Rouleaux Not Reportable 05/26/19 06:05 Not Reportable 05/26/19 06:05 Not Reportable 05/26/19 06:05 Not Reportable 05/26/19 06:05 Not Reportable 05/26/19 06:05 Hem Pathologist Commnt No 05/26/19 06:05 PT 14.1 Sec. (12.2-14.9) 05/26/19 07:45 INR 1.12 (0.87-1.13) 05/26/19 07:45 APTT 25.8 Sec. (24.2-36.6) 05/26/19 07:45 ABG pH 7.436 pH Units (7.350-7.450) 05/26/19 Unknown ABG pCO2 49.9 mm Hg 05/26/19 Unknown ABG pO2 68.4 mm Hg (80.0-90.0) L 05/26/19 Unknown ABG HCO3 32.9 mmol/L (20.0-26.0) H 05/26/19 Unknown ABG O2 Saturation 94.9 % (95.0-99.0) L 05/26/19 Unknown ABG O2 Content 14.1 (0.0-44) 05/26/19 Unknown ABG Base Excess 7.5 mmol/L (-2.0-3.0) H 05/26/19 Unknown ABG Hemoglobin 10.8 gm/dl (14.0-18.0) L 05/26/19 Unknown ABG Carboxyhemoglobin 1.7 % (0.0-5.0) 05/26/19 Unknown ABG Methemoglobin 0.5 % (0.0-1.5) 05/26/19 Unknown 92.7 % (95.0-99.0) L 05/26/19 Unknown 40 % 05/26/19 Unknown Sodium 137 mmol/L (137-145) 05/26/19 04:25 Potassium 4.2 mmol/L (3.6-5.0) 05/26/19 04:25 Chloride 91.4 mmol/L (98-107) L 05/26/19 04:25 Carbon Dioxide 32 mmol/L (22-30) H 05/26/19 04:25 18 mmol/L 05/26/19 04:25 BUN 22 mg/dL (9-20) H 05/26/19 04:25 0.4 mg/dL (0.8-1.5) L 05/26/19 04:25 Estimated GFR > 60 ml/min 05/26/19 04:25 55 % 05/26/19 04:25 Glucose 162 mg/dL (75-100) H 05/26/19 04:25 Calcium 8.8 mg/dL (8.4-10.2) D 05/26/19 04:25 Magnesium 1.90 mg/dL (1.7-2.3) 05/26/19 04:25 0.50 mg/dL (0.1-1.2) 05/26/19 04:25 AST 21 units/L (5-40) 05/26/19 04:25 ALT 31 units/L (7-56) 05/26/19 04:25 167 units/L (35-129) H 05/26/19 04:25 < 7 units/L (55-170) L 05/26/19 07:45 CK-MB (CK-2) 3.0 ng/mL (0.0-4.0) 05/26/19 07:45 CK-MB (CK-2) Rel Index 0.0 (0-4) 05/26/19 07:45 < 0.010 ng/mL (0.00-0.029) 05/26/19 07:45 5.7 g/dL (6.3-8.2) L D 05/26/19 04:25 2.6 g/dL (3.9-5) L 05/26/19 04:25 0.8 % 05/26/19 04:25 8 units/L (13-60) L 05/26/19 04:25 Active Medications - Current Medications Current Medications: Generic Name Dose Route Start Last Admin Trade Name Freq PRN Reason Stop Dose Admin Acetaminophen 650 mg 05/26/19 06:14 Tylenol PO Q4H PRN Pain MILD(1-3)/Fever >100.5/BOO Albuterol/Ipratropium 1 ampul 05/26/19 08:00 05/27/19 08:59 Duoneb *Not For Prn Use* IH 1 ampul Q6HRT FRANCISCO JAVIER Administration Enoxaparin Sodium 40 mg 05/26/19 10:00 05/26/19 09:59 Lovenox SUB-Q 40 mg QDAY FRANCISCO JAVIER Administration Methylprednisolone Sodium Succinate 125 mg 05/26/19 06:18 05/27/19 05:14 Solu-Medrol IV 125 mg Q6HR FRANCISCO JAVIER Administration Ondansetron HCl 4 mg 05/26/19 06:14 05/26/19 06:44 Zofran IV 4 mg Q8H PRN Administration Nausea And Vomiting Sodium Chloride 10 ml 05/26/19 10:00 05/26/19 21:01 Sodium Chloride Flush Syringe 10 Ml IV 10 ml BID FRANCISCO JAVIER Administration Sodium Chloride 10 ml 05/26/19 06:14 Sodium Chloride Flush Syringe 10 Ml IV PRN PRN LINE FLUSH
[2019-05-27] MEDS: SODIUM CHLORIDE FLUSH SYRINGE 10 ML IV SCH ×2 (09:17→21:51)
[2019-05-27] MEDS: TYLENOL PO PRN (09:22)
[2019-05-27] MEDS: SODIUM CHLORIDE FLUSH SYRINGE 10 ML IV PRN ×2 (12:15→17:20)
--- NOTE | 2019-05-27 13:28 | Progress Note ---
Assessment and Plan Patient sleeping. No acute respiratory distress. Patient is on Vapotherm. FIO2 50% and O2 saturation running 92%.Patient afebrile. Patient has leukocytosis. - Patient Problems (1) Lung cancer Current Visit: No Status: Chronic Qualifiers: Laterality: right Lung location: overlapping sites Qualified Code(s): C34.81 - Malignant neoplasm of overlapping sites of right bronchus and lung Plan to address problem: management as per oncology (2) COPD (chronic obstructive pulmonary disease) Current Visit: No Status: Acute Qualifiers: Chronic bronchitis type: mixed simple and mucopurulent Plan to address problem: Patient is on Vapotherm FIO2 50%. Albuterol and Atrovent aerosol treatment Continue IV solumedrol Continue subcutaneous Lovenox Recommend GI prophylaxis (3) Acute on chronic respiratory failure with hypoxia and hypercapnia Current Visit: Yes Status: Acute Plan to address problem: Patient is on Vapotherm FIO2 50%. Albuterol and Atrovent aerosol treatment Continue IV solumedrol Continue subcutaneous Lovenox Recommend GI prophylax Subjective Date of service: 05/27/19 Interval history: Patient sleeping. No acute respiratory distress. Patient is on Vapotherm. FIO2 50% and O2 saturation running 92%.Patient afebrile. Patient has leukocytosis. Objective Vital Signs - 12hr 05/27/19 05/27/19 05/27/19 02:12 03:32 04:57 Temperature 97.5 F L Pulse Rate 98 H 97 H Pulse Rate [ 99 H Bilateral] Pulse Rate [ Right Brachial] Respiratory 18 Rate Respiratory 20 Rate [Bilateral ] Blood Pressure 119/81 O2 Sat by Pulse 93 Oximetry 05/27/19 05/27/19 07:30 10:00 Temperature 98.5 F Pulse Rate 95 H 99 H Pulse Rate [ Bilateral] Pulse Rate [ 95 H Right Brachial] Respiratory 24 24 Rate Respiratory Rate [Bilateral ] Blood Pressure 123/83 O2 Sat by Pulse 91 91 Oximetry Constitutional: no acute distress, asleep Eyes: non-icteric ENT: oropharynx moist Neck: supple, no JVD Ascultation: Right: diminished breath sounds, Left: rales Cardiovascular: regular rate and rhythm Gastrointestinal: soft, non-tender Extremities: no cyanosis, no edema Neurologic: non-focal exam Psychiatric: depressed CBC and BMP: 05/26/19 06:05 05/26/19 04:25 ABG, PT/INR, D-dimer: ABG ABG pH 7.436 pH Units (7.350-7.450) 05/26/19 Unknown ABG pCO2 49.9 mm Hg 05/26/19 Unknown ABG pO2 68.4 mm Hg (80.0-90.0) L 05/26/19 Unknown ABG O2 Saturation 94.9 % (95.0-99.0) L 05/26/19 Unknown PT/INR, D-dimer PT 14.1 Sec. (12.2-14.9) 05/26/19 07:45 INR 1.12 (0.87-1.13) 05/26/19 07:45 Abnormal lab findings: Abnormal Labs 05/26/19 05/26/19 05/26/19 04:25 06:05 07:45 WBC 14.1 H RBC 3.45 L Hgb 10.5 L Hct 31.8 L RDW 18.8 H Seg Neuts % (Manual) 91.0 H Lymphocytes % (Manual) 1.0 L Seg Neutrophils # Man 12.8 H Lymphocytes # (Manual) 0.1 L ABG pO2 ABG HCO3 ABG O2 Saturation ABG Base Excess ABG Hemoglobin Oxyhemoglobin Chloride 91.4 L Carbon Dioxide 32 H BUN 22 H Creatinine 0.4 L Glucose 162 H Alkaline Phosphatase 167 H Total Creatine Kinase 26 L < 7 L CK-MB (CK-2) Rel Index 10.7 H Total Protein 5.7 L D Albumin 2.6 L Lipase 8 L 05/26/19 Unknown WBC RBC Hgb Hct RDW Seg Neuts % (Manual) Lymphocytes % (Manual) Seg Neutrophils # Man Lymphocytes # (Manual) ABG pO2 68.4 L ABG HCO3 32.9 H ABG O2 Saturation 94.9 L ABG Base Excess 7.5 H ABG Hemoglobin 10.8 L Oxyhemoglobin 92.7 L Chloride Carbon Dioxide BUN Creatinine Glucose Alkaline Phosphatase Total Creatine Kinase CK-MB (CK-2) Rel Index Total Protein Albumin Lipase
[2019-05-27] MEDS: PERCOCET 5/325 PO PRN (23:36)
[2019-05-28] MEDS: DUONEB *Not for PRN Use IH SCH ×4 (01:52→20:15)
[2019-05-28] MEDS: SOLU-Medrol IV SCH ×3 (05:33→17:27)
--- NOTE | 2019-05-28 07:52 | Discharge Summary ---
Providers - Providers Date of Admission: 05/26/19 06:14 Attending physician: BREEZY ENAMORADO MD 05/26/19 06:14 Consult to Physician [CONS] Routine Comment: Consulting Provider: QUINTON REN Physician Instructions: Reason For Exam: sob/lung ca 05/26/19 17:26 Physical Therapy Evaluation and Treat [CONS] Routine Comment: Reason For Exam: Weakness 05/27/19 09:26 Consult to Dietitian/Nutrition [CONS] Routine Physician Instructions: Reason For Exam: Reason for Consult: Malnutrition [facility] Reason for admission: Respiratory failure Condition: Stable Hospital course: 68-year-old male with non-small cell lung, 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 The patient was admitted on the and discharged on he was seen for shortness of breath. It was documented that the patient had pneumonia however the official read of the x-ray state that there is no pneumonia. He was recommended for hospice, case management discussed this with both significant other and the rest of the family. The patient has no insurance, he has not followed up with oncologist for further radiation, he was deemed a poor candidate for treatment with poor prognosis. Place on a nonrebreather in the emergency room * Patient has been discharged from Radiation therapy and currently in hospice. * Attempt during prior admission to place pleurx catheter showed no clear site or benefit. * Imaging studies shows complete opacification of Right lung and deviation of trachea to left * Was treated with Nebulizer and Steroids, Showed some slight improvement Acute on chronic Respiratory failure with severe hypoxia and hypercapenia secondary to metastatic lung disease Loculated empyema with underlying adenocarcinoma-not surgically amendable COPD with exacerbation Leukocytosis- Improving Severe Protein calorie malnutrition with underlying chronic disease PLAN Continue supportive care Discussed extensively with the patient, anticipate discharge with inpatient hos pice back home in am continue nebs Disaster Response Director consult pain control dvt/gi prophy Disposition: DC-50 TO HOSPICE (HOME) Time spent for discharge: 35 mins Core Measure Documentation - Palliative Care Palliative Care/ Comfort Measures: Hospice Care - Core Measures Any of the following diagnoses?: none Exam - Physical Exam Narrative exam: VITAL SIGNS: Reviewed. GENERAL: The patient appears normally developed cachectic and chronically ill, Vital signs as documented. HEAD: No signs of head trauma. EYES: Pupils are equal. Extraocular motions intact. EARS: Hearing grossly intact. MOUTH: Oropharynx is normal. NECK: No adenopathy, no JVD. CHEST: Chest with diminished with left lobe WHEEZING. No rales, or rhonchi. CARDIAC: Regular rate and rhythm. S1 and S2, without murmurs, gallops, or rubs. VASCULAR: No Edema. Peripheral pulses normal and equal in all extremities. ABDOMEN: Soft, non tender and non distended. No rebound or guarding, and no masses palpated. Bowel Sounds normal. MUSCULOSKELETAL: Good range of motion of all major joints. Extremities without clubbing, cyanosis or edema. NEUROLOGIC EXAM: Alert and oriented x 3 No focal sensory or strength deficits. Speech normal. Follows commands. PSYCHIATRIC: Mood ANXIOUS. SKIN: detail exam as documented in skin assessment - Constitutional Vitals: Temp Pulse Resp BP Pulse Ox 97.6 F 91 H 20 109/79 95 05/28/19 07:41 05/28/19 07:41 05/28/19 07:41 05/28/19 07:41 05/28/19 07:44 Plan Activity: advance as tolerated, fall precautions Diet: low fat Special Instructions: record daily weights Additional Instructions: follow up per Hospice team [facility] ANNAM[facility] [Primary Care Provider] - 3-5 Days Prescriptions: Ipratropium/Albuterol Sulfate [DUONEB *Not for PRN Use*] 1 ampul IH Q6HRT #120 ampul.neb oxyCODONE /ACETAMINOPHEN [Percocet 5/325 mg] 1 tab PO Q6H PRN #14 tablet PRN Reason: Pain, Moderate (4-6) Prednisone [predniSONE 10 mg (6-Day Pack, 21 Tabs)] 10 mg PO .TAPER #1 tab.ds.pk ALBUTEROL Inhaler (OR & NICU) [ProAir HFA Inhaler] 2 puff IH QID PRN 30 Days #1 pump PRN Reason: Shortness Of Breath
[2019-05-28] MEDS: LOVENOX SUB-Q SCH (09:03)
[2019-05-28] MEDS: SODIUM CHLORIDE FLUSH SYRINGE 10 ML IV SCH ×2 (09:04→23:23)
[2019-05-28] MEDS: PERCOCET 5/325 PO PRN ×2 (09:04→17:29)
[2019-05-28] MEDS: TYLENOL PO PRN (11:01)
--- NOTE | 2019-05-28 11:01 | Progress Note ---
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 The patient was admitted on the and discharged on he was seen for shortness of breath. It was documented that the patient had pneumonia however the official read of the x-ray state that there is no pneumonia. He was recommended for hospice, case management discussed this with both significant other and the rest of the family. The patient has no insurance, he has not followed up with oncologist for further radiation, he was deemed a poor candidate for treatment with poor prognosis. Place on a nonrebreather in the emergency room * Patient has been discharged from Radiation therapy and currently in hospice. * Attempt during prior admission to place pleurx catheter showed no clear site or benefit. * Imaging studies shows complete opacification of Right lung and deviation of trachea to left Acute on chronic Respiratory failure with severe hypoxia and hypercapenia secondary to metastatic lung disease Loculated empyema with underlying adenocarcinoma-not surgically amendable COPD with exacerbation Leukocytosis- Improving Severe Protein calorie malnutrition with underlying chronic disease PLAN Continue supportive care Started n steroids by Amita Discussed extensively with the patient, anticipate discharge with inpatient hospice back home in am continue nebs Family today not agreeable to accept patient back states that he does not have oxygen set up. Not sure how this is possible since patient was on oxygen at home a few days ago. Then later they claimed there is no one available to open the door to the home. 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 still on high flow. No much change despite High dose steroids Tolerating diet Hospitalist Physical - Physical exam Narrative exam: VITAL SIGNS: Reviewed. GENERAL: The patient appears normally developed cachectic and chronically ill, Vital signs as documented. HEAD: No signs of head trauma. EYES: Pupils are equal. Extraocular motions intact. EARS: Hearing grossly intact. MOUTH: Oropharynx is normal. NECK: No adenopathy, no JVD. CHEST: Chest with diminished with left lobe WHEEZING. No rales, or rhonchi. CARDIAC: Regular rate and rhythm. S1 and S2, without murmurs, gallops, or rubs. VASCULAR: No Edema. Peripheral pulses normal and equal in all extremities. ABDOMEN: Soft, non tender and non distended. No rebound or guarding, and no masses palpated. Bowel Sounds normal. MUSCULOSKELETAL: Good range of motion of all major joints. Extremities without clubbing, cyanosis or edema. NEUROLOGIC EXAM: Alert and oriented x 3 No focal sensory or strength deficits. Speech normal. Follows commands. PSYCHIATRIC: Mood ANXIOUS. SKIN: detail exam as documented in skin assessment - Constitutional Vitals: Temp Pulse Resp BP Pulse Ox 97.6 F 91 H 20 109/79 95 05/28/19 07:41 05/28/19 08:44 05/28/19 08:44 05/28/19 07:41 05/28/19 08:44 General appearance: Present: no acute distress, cachectic, other (weak, sleepy) Results - Labs CBC & Chem 7: 05/26/19 06:05 05/26/19 04:25 Labs: Laboratory Last Values WBC 14.1 K/mm3 (4.5-11.0) H 05/26/19 06:05 RBC 3.45 M/mm3 (3.65-5.03) L 05/26/19 06:05 Hgb 10.5 gm/dl (11.8-15.2) L 05/26/19 06:05 Hct 31.8 % (35.5-45.6) L 05/26/19 06:05 MCV 92 fl (84-94) 05/26/19 06:05 MCH 30 pg (28-32) 05/26/19 06:05 MCHC 33 % (32-34) 05/26/19 06:05 RDW 18.8 % (13.2-15.2) H 05/26/19 06:05 Plt Count TNR 05/26/19 06:05 Add Manual Diff Complete 05/26/19 06:05 Total Counted 100 05/26/19 06:05 Seg Neutrophils % Journeyman Glazier 05/26/19 06:05 Seg Neuts % (Manual) 91.0 % (40.0-70.0) H 05/26/19 06:05 5.0 % 05/26/19 06:05 1.0 % (13.4-35.0) L 05/26/19 06:05 Reactive Lymphs % (Man) 0 % 05/26/19 06:05 3.0 % (0.0-7.3) 05/26/19 06:05 0 % (0.0-4.3) 05/26/19 06:05 0 % (0.0-1.8) 05/26/19 06:05 0 % 05/26/19 06:05 0 % 05/26/19 06:05 0 % 05/26/19 06:05 0 % 05/26/19 06:05 Nucleated RBC % Not Reportable 05/26/19 06:05 Seg Neutrophils # Man 12.8 K/mm3 (1.8-7.7) H 05/26/19 06:05 Band Neutrophils # 0.7 K/mm3 05/26/19 06:05 0.1 K/mm3 (1.2-5.4) L 05/26/19 06:05 Abs React Lymphs (Man) 0.0 K/mm3 05/26/19 06:05 0.4 K/mm3 (0.0-0.8) 05/26/19 06:05 0.0 K/mm3 (0.0-0.4) 05/26/19 06:05 0.0 K/mm3 (0.0-0.1) 05/26/19 06:05 0.0 K/mm3 05/26/19 06:05 0.0 K/mm3 05/26/19 06:05 0.0 K/mm3 05/26/19 06:05 Blast Cells # 0.0 K/mm3 05/26/19 06:05 WBC Morphology Not Reportable 05/26/19 06:05 Hypersegmented Neuts Not Reportable 05/26/19 06:05 Hyposegmented Neuts Not Reportable 05/26/19 06:05 Hypogranular Neuts Not Reportable 05/26/19 06:05 Not Reportable 05/26/19 06:05 Not Reportable 05/26/19 06:05 Not Reportable 05/26/19 06:05 Not Reportable 05/26/19 06:05 Not Reportable 05/26/19 06:05 Not Reportable 05/26/19 06:05 Consistent w auto 05/26/19 06:05 Not Reportable 05/26/19 06:05 Plt Clumps, EDTA Not Reportable 05/26/19 06:05 Not Reportable 05/26/19 06:05 Not Reportable 05/26/19 06:05 Not Reportable 05/26/19 06:05 Plt Morphology Comment Not Reportable 05/26/19 06:05 RBC Morphology Not Reportable 05/26/19 06:05 Dimorphic RBCs Not Reportable 05/26/19 06:05 Not Reportable 05/26/19 06:05 Not Reportable 05/26/19 06:05 Not Reportable 05/26/19 06:05 1+ 05/26/19 06:05 Not Reportable 05/26/19 06:05 1+ 05/26/19 06:05 Not Reportable 05/26/19 06:05 Not Reportable 05/26/19 06:05 Not Reportable 05/26/19 06:05 Rare 05/26/19 06:05 Not Reportable 05/26/19 06:05 Not Reportable 05/26/19 06:05 Not Reportable 05/26/19 06:05 Not Reportable 05/26/19 06:05 Not Reportable 05/26/19 06:05 Not Reportable 05/26/19 06:05 Not Reportable 05/26/19 06:05 Not Reportable 05/26/19 06:05 Not Reportable 05/26/19 06:05 Acanthocytes (Spur) Not Reportable 05/26/19 06:05 Rouleaux Not Reportable 05/26/19 06:05 Not Reportable 05/26/19 06:05 Not Reportable 05/26/19 06:05 Not Reportable 05/26/19 06:05 Not Reportable 05/26/19 06:05 Hem Pathologist Commnt No 05/26/19 06:05 PT 14.1 Sec. (12.2-14.9) 05/26/19 07:45 INR 1.12 (0.87-1.13) 05/26/19 07:45 APTT 25.8 Sec. (24.2-36.6) 05/26/19 07:45 ABG pH 7.436 pH Units (7.350-7.450) 05/26/19 Unknown ABG pCO2 49.9 mm Hg 05/26/19 Unknown ABG pO2 68.4 mm Hg (80.0-90.0) L 05/26/19 Unknown ABG HCO3 32.9 mmol/L (20.0-26.0) H 05/26/19 Unknown ABG O2 Saturation 94.9 % (95.0-99.0) L 05/26/19 Unknown ABG O2 Content 14.1 (0.0-44) 05/26/19 Unknown ABG Base Excess 7.5 mmol/L (-2.0-3.0) H 05/26/19 Unknown ABG Hemoglobin 10.8 gm/dl (14.0-18.0) L 05/26/19 Unknown ABG Carboxyhemoglobin 1.7 % (0.0-5.0) 05/26/19 Unknown ABG Methemoglobin 0.5 % (0.0-1.5) 05/26/19 Unknown 92.7 % (95.0-99.0) L 05/26/19 Unknown 40 % 05/26/19 Unknown Sodium 137 mmol/L (137-145) 05/26/19 04:25 Potassium 4.2 mmol/L (3.6-5.0) 05/26/19 04:25 Chloride 91.4 mmol/L (98-107) L 05/26/19 04:25 Carbon Dioxide 32 mmol/L (22-30) H 05/26/19 04:25 18 mmol/L 05/26/19 04:25 BUN 22 mg/dL (9-20) H 05/26/19 04:25 0.4 mg/dL (0.8-1.5) L 05/26/19 04:25 Estimated GFR > 60 ml/min 05/26/19 04:25 55 % 05/26/19 04:25 Glucose 162 mg/dL (75-100) H 05/26/19 04:25 Calcium 8.8 mg/dL (8.4-10.2) D 05/26/19 04:25 Magnesium 1.90 mg/dL (1.7-2.3) 05/26/19 04:25 0.50 mg/dL (0.1-1.2) 05/26/19 04:25 AST 21 units/L (5-40) 05/26/19 04:25 ALT 31 units/L (7-56) 05/26/19 04:25 167 units/L (35-129) H 05/26/19 04:25 < 7 units/L (55-170) L 05/26/19 07:45 CK-MB (CK-2) 3.0 ng/mL (0.0-4.0) 05/26/19 07:45 CK-MB (CK-2) Rel Index 0.0 (0-4) 05/26/19 07:45 < 0.010 ng/mL (0.00-0.029) 05/26/19 07:45 5.7 g/dL (6.3-8.2) L D 05/26/19 04:25 2.6 g/dL (3.9-5) L 05/26/19 04:25 0.8 % 05/26/19 04:25 8 units/L (13-60) L 05/26/19 04:25 Active Medications - Current Medications Current Medications: Generic Name Dose Route Start Last Admin Trade Name Freq PRN Reason Stop Dose Admin Acetaminophen 650 mg 05/26/19 06:14 05/27/19 09:22 Tylenol PO 650 mg Q4H PRN Administration Pain MILD(1-3)/Fever >100.5/BOO Albuterol/Ipratropium 1 ampul 05/26/19 08:00 05/28/19 07:41 Duoneb *Not For Prn Use* IH 1 ampul Q6HRT FRANCISCO JAVIER Administration Enoxaparin Sodium 40 mg 05/26/19 10:00 05/28/19 09:03 Lovenox SUB-Q 40 mg QDAY FRANCISCO JAVIER Administration Methylprednisolone Sodium Succinate 125 mg 05/26/19 06:18 05/28/19 05:33 Solu-Medrol IV 125 mg Q6HR FRANCISCO JAVIER Administration Ondansetron HCl 4 mg 05/26/19 06:14 05/26/19 06:44 Zofran IV 4 mg Q8H PRN Administration Nausea And Vomiting Oxycodone/Acetaminophen 1 tab 05/27/19 23:04 05/28/19 09:04 Percocet 5/325 PO 1 tab Q4H PRN Administration Pain, Moderate (4-6) Sodium Chloride 10 ml 05/26/19 10:00 05/28/19 09:04 Sodium Chloride Flush Syringe 10 Ml IV 10 ml BID FRANCISCO JAVIER Administration Sodium Chloride 10 ml 05/26/19 06:14 05/27/19 17:20 Sodium Chloride Flush Syringe 10 Ml IV 10 ml PRN PRN Administration LINE FLUSH Nutrition/Malnutrition Assess - Dietary Evaluation Nutrition/Malnutrition Findings: Nutrition Notes Start: 05/27/19 13:59 Freq: Status: Active Protocol: Document 05/27/19 13:59 BILL (Rec: 05/27/19 14:04 BILL [email or web address]) Nutrition Notes Need for Assessment generated from: MD Order Initial or Follow up Assessment Current Diagnosis COPD,Respiratory Failure Other Pertinent Diagnosis Lung CA Current Diet Cardiac Labs/Tests Reviewed Pertinent Medications Solumedrol Height 5 ft 4 in Weight 52 kg Usual Body Weight 63.6 kg [place] Body Weight (kg) 59.09 BMI 19.6 Weight change and time frame Pt weighed 57.1kg on 03/15/19 Weight Status Underweight Subjective/Other Information RD consulted for malnutrition. Per records, pt has been non -compliant with F/U appointments with oncologist. He is on high-flow oxygen at time of visit and is slightly confused. He says his appetite is "not so good" today. Amenable to drinking ONS and would like to drink these at home as well. Burn Absent Trauma Absent Skin Integrity/Comment Artemio score: 17 Current % PO Poor (25-49%) Minimum of two criteria Yes Energy Intake (severe) < or equal to 50% Estimated Energy Requirement > or equal to 5 days Interpretation of Weight Loss (severe) >7.5% in 3 months Body Fat Depletion Moderate depletion (severe) Muscle Mass Moderate Depletion (severe) Fluid Accumulation N/A Reduced Formal Waiter/Waitress Strength N/A (non-severe) Protein-Calorie Malnutrition Severe #1 Nutrition Diagnosis Malnutrition Etiology lung CA, COPD As Evidenced by Signs and Symptoms BMI 19.7; unintentional wt loss, subcutaneous fat loss and muscle wasting Is patient on ventilator? No Is Patient Ambulatory and/or Out of Bed Yes REE-([place]-St. Jeor-ambulatory/OOB) [ 1574.300 [id number]] Kcal/Kg value to use for calculation 35 Approximate Energy Requirements Using 1820 kcal/Kg Calculation Used for Recommendations Kcal/kg Additional Notes Pro needs 1.2-1.5g/k-78g/ day Fluid needs 1ml/kcal Nutrition Intervention Change Diet Order: Continue current diet order Add Supplement/Snack (indicate name/kcal Ensure Enlive TID (vanilla) /protein ) Provides kCal: 1,050 Provides Protein (gm) 60 Education Handouts Provided Pt given ONS D/C instructions and coupons for ONS purchase Goal #1 PO intake of meals plus ONS to meet 100% energy and pro needs Goal #2 Wt maintenance and/or gain Anticipated Discharge Needs: Continue Ensure (or equivalent ) one bottle 2-3 times daily for wt maintenance Follow-Up By: 05/30/19 Additional Comments F/U: intakes (meals/ONS), wt
[2019-05-28] MEDS: SODIUM CHLORIDE FLUSH SYRINGE 10 ML IV PRN ×2 (11:03→17:27)
--- NOTE | 2019-05-28 19:00 | Progress Note ---
Assessment and Plan atient awake.. No acute respiratory distress. Patient is on Vapotherm. FIO2 30% and O2 saturation running 93%.Patient running low grade temp. Patient has leukocytosis. - Patient Problems (1) Lung cancer Current Visit: No Status: Chronic Qualifiers: Laterality: right Lung location: overlapping sites Qualified Code(s): C34.81 - Malignant neoplasm of overlapping sites of right bronchus and lung Plan to address problem: management as per oncology (2) COPD (chronic obstructive pulmonary disease) Current Visit: No Status: Acute Qualifiers: Chronic bronchitis type: mixed simple and mucopurulent Plan to address problem: Patient is on Vapotherm FIO2 30%. Albuterol and Atrovent aerosol treatment Continue IV solumedrol Continue subcutaneous Lovenox Recommend GI prophylaxis (3) Acute on chronic respiratory failure with hypoxia and hypercapnia Current Visit: Yes Status: Acute Plan to address problem: Patient is on Vapotherm FIO2 30%. Albuterol and Atrovent aerosol treatment Continue IV solumedrol Continue subcutaneous Lovenox Recommend GI prophylax Subjective Date of service: 05/28/19 Interval history: Patient awake.. No acute respiratory distress. Patient is on Vapotherm. FIO2 30% and O2 saturation running 93%.Patient running low grade temp. Patient has leukocytosis. Objective Vital Signs - 12hr 05/28/19 05/28/19 05/28/19 07:41 07:44 10:00 Temperature 97.6 F Pulse Rate 91 H 95 H Pulse Rate [ 93 H Bilateral] Pulse Rate [ 91 H Right Brachial] Respiratory 20 20 Rate Respiratory 18 Rate [Bilateral ] Blood Pressure 109/79 O2 Sat by Pulse 96 95 95 Oximetry 05/28/19 05/28/19 13:39 13:45 Temperature 97.9 F Pulse Rate 92 H Pulse Rate [ 90 Bilateral] Pulse Rate [ Right Brachial] Respiratory 20 Rate Respiratory 20 Rate [Bilateral ] Blood Pressure 109/77 O2 Sat by Pulse 93 Oximetry Constitutional: no acute distress, alert Eyes: non-icteric ENT: oropharynx moist Neck: supple, no JVD Ascultation: Right: diminished breath sounds, Left: rales Cardiovascular: regular rate and rhythm Gastrointestinal: soft, non-tender Extremities: no cyanosis, no edema Neurologic: non-focal exam Psychiatric: depressed CBC and BMP: 05/26/19 06:05 05/26/19 04:25 ABG, PT/INR, D-dimer: ABG ABG pH 7.436 pH Units (7.350-7.450) 05/26/19 Unknown ABG pCO2 49.9 mm Hg 05/26/19 Unknown ABG pO2 68.4 mm Hg (80.0-90.0) L 05/26/19 Unknown ABG O2 Saturation 94.9 % (95.0-99.0) L 05/26/19 Unknown PT/INR, D-dimer PT 14.1 Sec. (12.2-14.9) 05/26/19 07:45 INR 1.12 (0.87-1.13) 05/26/19 07:45 Abnormal lab findings: Abnormal Labs 05/26/19 05/26/19 05/26/19 04:25 06:05 07:45 WBC 14.1 H RBC 3.45 L Hgb 10.5 L Hct 31.8 L RDW 18.8 H Seg Neuts % (Manual) 91.0 H Lymphocytes % (Manual) 1.0 L Seg Neutrophils # Man 12.8 H Lymphocytes # (Manual) 0.1 L ABG pO2 ABG HCO3 ABG O2 Saturation ABG Base Excess ABG Hemoglobin Oxyhemoglobin Chloride 91.4 L Carbon Dioxide 32 H BUN 22 H Creatinine 0.4 L Glucose 162 H Alkaline Phosphatase 167 H Total Creatine Kinase 26 L < 7 L CK-MB (CK-2) Rel Index 10.7 H Total Protein 5.7 L D Albumin 2.6 L Lipase 8 L 05/26/19 Unknown WBC RBC Hgb Hct RDW Seg Neuts % (Manual) Lymphocytes % (Manual) Seg Neutrophils # Man Lymphocytes # (Manual) ABG pO2 68.4 L ABG HCO3 32.9 H ABG O2 Saturation 94.9 L ABG Base Excess 7.5 H ABG Hemoglobin 10.8 L Oxyhemoglobin 92.7 L Chloride Carbon Dioxide BUN Creatinine Glucose Alkaline Phosphatase Total Creatine Kinase CK-MB (CK-2) Rel Index Total Protein Albumin Lipase
[2019-05-29] MEDS: SOLU-Medrol IV SCH ×3 (01:06→11:55)
[2019-05-29] MEDS: PERCOCET 5/325 PO PRN ×2 (01:10→12:05)
[2019-05-29] MEDS: DUONEB *Not for PRN Use IH SCH ×3 (02:34→13:45)
[2019-05-29] MEDS: LOVENOX SUB-Q SCH (09:00)
[2019-05-29] MEDS: SODIUM CHLORIDE FLUSH SYRINGE 10 ML IV SCH (09:01)
[2019-05-29] MEDS: SODIUM CHLORIDE FLUSH SYRINGE 10 ML IV PRN (11:55)
[2019-05-29 16:32] VITALS: BP 127/87
[2019-05-29] MEDS: TYLENOL PO PRN (16:32)
--- NOTE | 2019-05-29 16:37 | Progress Note ---
Assessment and Plan Patient awake. No acute respiratory distress. Patient is on Vapotherm. FIO2 35% and O2 saturation running 95%.Patient afebrile. Patient has leukocytosis. I was told patient going home with Hospice to day. - Patient Problems (1) Lung cancer Current Visit: No Status: Chronic Qualifiers: Laterality: right Lung location: overlapping sites Qualified Code(s): C34.81 - Malignant neoplasm of overlapping sites of right bronchus and lung Plan to address problem: management as per oncology (2) COPD (chronic obstructive pulmonary disease) Current Visit: No Status: Acute Qualifiers: Chronic bronchitis type: mixed simple and mucopurulent Plan to address problem: Patient is on Vapotherm FIO2 35%. Albuterol and Atrovent aerosol treatment Continue IV solumedrol Continue subcutaneous Lovenox Recommend GI prophylaxis (3) Acute on chronic respiratory failure with hypoxia and hypercapnia Current Visit: Yes Status: Acute Plan to address problem: Patient is on Vapotherm FIO2 35%. Albuterol and Atrovent aerosol treatment Continue IV solumedrol Continue subcutaneous Lovenox Recommend GI prophylax Subjective Date of service: 05/29/19 Interval history: Patient awake. No acute respiratory distress. Patient is on Vapotherm. FIO2 35% and O2 saturation running 95%.Patient afebrile. Patient has leukocytosis. I was told patient going home with Hospice to day. Objective Vital Signs - 12hr 05/29/19 05/29/19 05/29/19 07:40 07:53 10:00 Temperature 97.8 F Pulse Rate 89 94 H Pulse Rate [ 90 Bilateral] Pulse Rate [ 89 Right Brachial] Respiratory 20 Rate Respiratory 18 Rate [Bilateral ] Blood Pressure 124/85 O2 Sat by Pulse 94 100 Oximetry 05/29/19 05/29/19 05/29/19 12:05 13:45 14:28 Temperature 98.1 F Pulse Rate 95 H Pulse Rate [ 94 H Bilateral] Pulse Rate [ Right Brachial] Respiratory 21 22 Rate Respiratory 18 Rate [Bilateral ] Blood Pressure 127/87 O2 Sat by Pulse 96 95 Oximetry 05/29/19 16:32 Temperature Pulse Rate Pulse Rate [ Bilateral] Pulse Rate [ Right Brachial] Respiratory 20 Rate Respiratory Rate [Bilateral ] Blood Pressure O2 Sat by Pulse Oximetry Constitutional: no acute distress, alert Eyes: non-icteric ENT: oropharynx moist Neck: supple, no JVD Ascultation: Right: diminished breath sounds, Left: rales Cardiovascular: regular rate and rhythm Gastrointestinal: soft, non-tender Extremities: no cyanosis, no edema Neurologic: non-focal exam Psychiatric: depressed CBC and BMP: 05/26/19 06:05 05/26/19 04:25 ABG, PT/INR, D-dimer: ABG ABG pH 7.436 pH Units (7.350-7.450) 05/26/19 Unknown ABG pCO2 49.9 mm Hg 05/26/19 Unknown ABG pO2 68.4 mm Hg (80.0-90.0) L 05/26/19 Unknown ABG O2 Saturation 94.9 % (95.0-99.0) L 05/26/19 Unknown PT/INR, D-dimer PT 14.1 Sec. (12.2-14.9) 05/26/19 07:45 INR 1.12 (0.87-1.13) 05/26/19 07:45 Abnormal lab findings: Abnormal Labs 05/26/19 05/26/19 05/26/19 04:25 06:05 07:45 WBC 14.1 H RBC 3.45 L Hgb 10.5 L Hct 31.8 L RDW 18.8 H Seg Neuts % (Manual) 91.0 H Lymphocytes % (Manual) 1.0 L Seg Neutrophils # Man 12.8 H Lymphocytes # (Manual) 0.1 L ABG pO2 ABG HCO3 ABG O2 Saturation ABG Base Excess ABG Hemoglobin Oxyhemoglobin Chloride 91.4 L Carbon Dioxide 32 H BUN 22 H Creatinine 0.4 L Glucose 162 H Alkaline Phosphatase 167 H Total Creatine Kinase 26 L < 7 L CK-MB (CK-2) Rel Index 10.7 H Total Protein 5.7 L D Albumin 2.6 L Lipase 8 L 05/26/19 Unknown WBC RBC Hgb Hct RDW Seg Neuts % (Manual) Lymphocytes % (Manual) Seg Neutrophils # Man Lymphocytes # (Manual) ABG pO2 68.4 L ABG HCO3 32.9 H ABG O2 Saturation 94.9 L ABG Base Excess 7.5 H ABG Hemoglobin 10.8 L Oxyhemoglobin 92.7 L Chloride Carbon Dioxide BUN Creatinine Glucose Alkaline Phosphatase Total Creatine Kinase CK-MB (CK-2) Rel Index Total Protein Albumin Lipase
== END 2019-05-29 17:20 | disposition hospice, home (50) | DRG 180 ==
LOC: ED 02:18 → SUATTDRO 02:18 → IMCU 06:14 → 2B-ACE 10:16
PROVIDERS: ADMIT Internal Medicine; ATTEND Internal Medicine
DX: C34.81 Malignant neoplasm of overlapping sites of right bronchus and lung (principal); J96.21 Acute and chronic respiratory failure with hypoxia; E43 Unspecified severe protein-calorie malnutrition; J96.22 Acute and chronic respiratory failure with hypercapnia; J44.1 Chronic obstructive pulmonary disease with (acute) exacerbation; Z68.1 Body mass index [BMI] 19.9 or less, adult; F17.210 Nicotine dependence, cigarettes, uncomplicated; Z66 Do not resuscitate; Z51.5 Encounter for palliative care; Z86.11 Personal history of tuberculosis; Z82.49 Family history of ischemic heart disease and other diseases of the circulatory system; Z83.3 Family history of diabetes mellitus; Z79.51 Long term (current) use of inhaled steroids; Z79.899 Other long term (current) drug therapy; Z71.6 Tobacco abuse counseling
CPT/HCPCS: 31720; 36415; 71045; 80053; 82550; 82553; 82803; 83690; 83735; 84484; 85007; 85025; 85610; 85730; 93005; 93010; 94640; 94760; 96372; 96374; 96375; 99406; G0378; J1650; J2405; J2930

== ENCOUNTER 2019-05-31 08:32 | Inpatient (IN) | payer SELFPAY ==
[~2019-05-31 08:32] MED LIST: ADRENALIN ONE; AMIDATE IV ONE; ZEMURON IV ONE
[2019-05-31] MEDS ORDERED: LEVOPHED DRIP 4 MG/NS 250 ML 4 MG/250 ML BAG IV ONE (08:36)
[2019-05-31] MEDS: LEVOPHED DRIP 4 MG/NS 250 ML 4 MG/250 ML BAG IV SCH ×3 (08:43→21:10)
[2019-05-31] MEDS ORDERED: NACL 0.9% 1000 ML 1,000 ML IV ONE ×3 (08:49→19:00)
--- NOTE | 2019-05-31 08:49 | Emergency Department Report ---
ED Shortness of Breath HPI - General Stated Complaint: RESPIRATORY DISTRESS Time Seen by Provider: 05/31/19 08:32 Source: EMS Mode of arrival: Stretcher Limitations: Altered Mental Status - History of Present Illness Initial Comments: Patient is a 68-year-old mellitus emergency room with complaints of difficulty breathing. Patient is minimally responsive. Per EMS, patient is on hospice but is full code. Patient recently just left the hospital. Patient is 100% with BVM. MD Complaint: shortness of breath -: Sudden Severity: severe Consistency: constant Improves With: oxygen, other Treatments Prior to Arrival: oxygen, bronchodilator - Related Data Home Oxygen Therapy: Yes Home Oxygen Amount: other Home Medications Medication Instructions Recorded Confirmed Last Taken Docusate Sodium [Colace CAP] 1 cap PO PRN PRN 05/31/19 05/31/19 Unknown Fluconazole [Diflucan TAB] 150 mg PO PRN PRN 05/31/19 05/31/19 Unknown LORazepam [Ativan] 0.5 mg PO Q6H PRN 05/31/19 05/31/19 Unknown Previous Rx's Medication Instructions Recorded Last Taken Type Folic Acid [Folvite] 1 mg PO QDAY #30 tablet 04/17/19 05/24/19 Rx Furosemide [Lasix TAB] 20 mg PO QDAY #30 tablet 04/17/19 05/24/19 Rx Temazepam [Restoril] 15 mg PO QHS PRN #7 capsule 04/17/19 05/23/19 Rx Thiamine [Vitamin B-1] 100 mg PO QDAY #30 tablet 04/17/19 05/24/19 Rx ALBUTEROL Inhaler (OR & NICU) 2 puff IH QID PRN 30 Days #1 pump 05/28/19 Unknown Rx [ProAir HFA Inhaler] Ipratropium/Albuterol Sulfate 1 ampul IH Q6HRT #120 ampul.neb 05/28/19 Unknown Rx [DUONEB *Not for PRN Use*] Prednisone [predniSONE 10 mg 10 mg PO .TAPER #1 tab.ds.pk 05/28/19 Unknown Rx (6-Day Pack, 21 Tabs)] oxyCODONE /ACETAMINOPHEN [Percocet 1 tab PO Q6H PRN #14 tablet 05/28/19 Unknown Rx 5/325 mg] Allergies Allergy/AdvReac Type Severity Reaction Status Date / Time No Known Allergies Allergy Verified 05/12/19 17:25 ED Review of Systems ROS: Stated complaint: RESPIRATORY DISTRESS Other details as noted in HPI Comment: Unobtainable due to pts medical conditions ED Past Medical Hx - Past Medical History Previous Medical History?: Yes Hx Congestive Heart Failure: Yes Hx COPD: Yes Hx Tuberculosis: Yes (treated 1986) Additional medical history: TB in . Lung CA currently under radiation therapy - Surgical History Past Surgical History?: No - Family History Family history: no significant - Social History Smoking Status: Former Smoker Substance Use Type: None - Medications Home Medications: Home Medications Medication Instructions Recorded Confirmed Last Taken Type Folic Acid [Folvite] 1 mg PO QDAY #30 tablet 04/17/19 05/26/19 05/24/19 Rx Furosemide [Lasix TAB] 20 mg PO QDAY #30 tablet 04/17/19 05/31/19 05/24/19 Rx Temazepam [Restoril] 15 mg PO QHS PRN #7 capsule 04/17/19 05/31/19 05/23/19 Rx Thiamine [Vitamin B-1] 100 mg PO QDAY #30 tablet 04/17/19 05/26/19 05/24/19 Rx ALBUTEROL Inhaler (OR & NICU) 2 puff IH QID PRN 30 Days #1 pump 05/28/19 Unknown Rx [ProAir HFA Inhaler] Ipratropium/Albuterol Sulfate 1 ampul IH Q6HRT #120 ampul.neb 05/28/19 05/31/19 Unknown Rx [DUONEB *Not for PRN Use*] Prednisone [predniSONE 10 mg 10 mg PO .TAPER #1 tab.ds.pk 05/28/19 Unknown Rx (6-Day Pack, 21 Tabs)] oxyCODONE /ACETAMINOPHEN [Percocet 1 tab PO Q6H PRN #14 tablet 05/28/19 05/31/19 Unknown Rx 5/325 mg] Docusate Sodium [Colace CAP] 1 cap PO PRN PRN 05/31/19 05/31/19 Unknown History Fluconazole [Diflucan TAB] 150 mg PO PRN PRN 05/31/19 05/31/19 Unknown History LORazepam [Ativan] 0.5 mg PO Q6H PRN 05/31/19 05/31/19 Unknown History ED Physical Exam - General Limitations: Altered Mental Status, Physical Limitation General appearance: lethargic, in distress - Head Head exam: Present: atraumatic, normocephalic - Eye Eye exam: Present: normal appearance, PERRL Pupils: Present: normal accommodation - ENT ENT exam: Present: mucous membranes dry - Neck Neck exam: Present: normal inspection - Respiratory Respiratory exam: Present: respiratory distress, wheezes, rales - Cardiovascular Cardiovascular Exam: Present: regular rate, normal rhythm. Absent: systolic murmur, diastolic murmur, rubs, gallop - GI/Abdominal GI/Abdominal exam: Present: soft, normal bowel sounds - Rectal Rectal exam: Present: deferred - Extremities Exam Extremities exam: Present: normal inspection - Back Exam Back exam: Present: normal inspection - Neurological Exam Neurological exam: Present: altered - Skin Skin exam: Present: warm, dry, intact, normal color. Absent: rash ED Course Vital Signs 05/31/19 05/31/19 05/31/19 08:24 08:30 08:32 Temperature 99.3 F Pulse Rate 120 H 123 H 158 H Respiratory 20 17 22 Rate Blood Pressure 90/60 82/42 Blood Pressure [Left] O2 Sat by Pulse 96 98 97 Oximetry 05/31/19 05/31/19 05/31/19 08:39 08:43 08:46 Temperature Pulse Rate 158 H 147 H 138 H Respiratory 22 18 19 Rate Blood Pressure 177/95 Blood Pressure 82/42 177/95 [Left] O2 Sat by Pulse 100 100 Oximetry 05/31/19 05/31/19 05/31/19 08:50 09:00 09:05 Temperature Pulse Rate 141 H 124 H 131 H Respiratory 17 22 Rate Blood Pressure 116/75 116/75 Blood Pressure 119/86 [Left] O2 Sat by Pulse 100 100 100 Oximetry 05/31/19 05/31/19 05/31/19 09:15 09:17 09:26 Temperature Pulse Rate 124 H 125 H 124 H Respiratory 23 18 22 Rate Blood Pressure 111/77 Blood Pressure 117/77 103/75 [Left] O2 Sat by Pulse 97 100 100 Oximetry 05/31/19 05/31/19 05/31/19 09:30 09:45 09:59 Temperature Pulse Rate 121 H 116 H 117 H Respiratory 25 H 20 Rate Blood Pressure 114/81 103/59 106/22 Blood Pressure [Left] O2 Sat by Pulse 99 100 110 H Oximetry 05/31/19 05/31/19 05/31/19 10:00 10:15 10:30 Temperature Pulse Rate 111 H 113 H 112 H Respiratory 24 26 H 22 Rate Blood Pressure 89/64 84/57 87/57 Blood Pressure [Left] O2 Sat by Pulse 98 91 93 Oximetry 05/31/19 05/31/19 05/31/19 10:32 10:45 11:00 Temperature Pulse Rate 112 H 111 H 112 H Respiratory 25 H 20 24 Rate Blood Pressure 82/57 89/60 Blood Pressure 87/57 89/60 [Left] O2 Sat by Pulse 92 94 94 Oximetry 05/31/19 11:15 Temperature Pulse Rate 111 H Respiratory 26 H Rate Blood Pressure 90/59 Blood Pressure [Left] O2 Sat by Pulse 95 Oximetry - Reevaluation(s) Reevaluation #1: Initial evaluation done. Patient found to be altered mental status and hypoxia. Patient intubated immediately. Patient given RSI. See procedure note. 05/31/19 08:25 Reevaluation #2: Shortly after intubation the patient's oxygenation improved. And then the patient Went into cardiac arrest. See code note. Patient given 1 round of epi and and chest compressions and Spontaneous return of circulation noted. Patient started on norepinephrine drip 05/31/19 08:38 Reevaluation #3: Patient vital sign improving. We will decrease norepinephrine drip. Patient had a central line placed. See procedure note 05/31/19 09:28 Reevaluation #4: Patient on fentanyl and norepinephrine drip. Patient spent settings adjusted for ABG. Patient resting comfortably. Patient's blood pressure will be continue to monitor and patient's norepinephrine drip will be adjusted as needed. 05/31/19 10:01 - Consultations Consultation #1: Hospitalist consult for admission. Hospitalist admit patient. Bridge orders placed 05/31/19 10:27 - Central Line Placement Right Femoral Consent Obtained: emergent situation Time Out Performed: Yes Patient Placed on Monitor/Pulse Ox: Yes Prep: mask, gown, gloves Central Line Prep: Chlorhexidine scrub, sterile drapes applied Local Anesthesia Used: other anesthetic Ultrasound Used for Placement: Yes Central Line Lumen Inserted: triple Bloods Obtained for Lab: Yes Central Line Position: good blood return, all ports aspirated, flus, sutured in place with 2-0 Dressing Applied: Tegaderm Patient Tolerated Procedure: well, no complications Complications: none - Intubation Time Out Performed: Yes Sedative: Etomidate Paralytic: Rocuronium Laryngoscope: fiberoptic video scope Size: 4 Assist Device Used: fiberoptic device ET Tube Size: 7.5 Tube Secured Depth (cm): 22 Tube Secured Location: teeth Tube Placement Confirmation: visualized tube passing t, equal breath sounds bilat, no breath sounds over epi, confirmation by capnometr Patient Tolerated Procedure: well, no complications Intubation Complications: none ED Medical Decision Making - Lab Data Result diagrams: 05/31/19 09:24 05/31/19 09:24 - EKG Data -: EKG Interpreted by Me EKG shows normal: sinus rhythm, axis, intervals, QRS complexes, ST-T waves Rate: normal - Medical Decision Making Patient is a 68-year-old male [facility] emergency room with respiratory distress and hypoxia. Patient found to have respiratory failure. Patient intubated lavinia upon arrival. Shortly after intubation, the patient went into cardiac arrest. Patient scold ran in accordance with ACLS protocol and patient had spontaneous return of circulation. Patient placed on norepinephrine drip for heart hypotension and postcardiac arrest. Patient given antibiotics for suspected infection. Patient found to have a left-sided pneumonia. Patient had a central line placed for volume repletion and the fact the patient on a pressor. Patient Slavick reviewed. Patient admitted to the ICU. Patient admitted to the hospitalist service. - Differential Diagnosis respiratory failure. Respiratory arrest. Cardiac arrest. Hypoxia. SOB Critical Care Time: Yes Critical care attestation.: If time is entered above; I have spent that time in minutes in the direct care of this critically ill patient, excluding procedure time. Critical Care Time: 75 minutes ED Disposition Clinical Impression: Respiratory distress, Cardiac arrest, Shortness of breath, Septic shock, Acute respiratory distress, Hypoxia Respiratory failure Qualifiers: Chronicity: acute Respiratory failure complication: hypoxia Qualified Code(s): J96.01 - Acute respiratory failure with hypoxia Pneumonia Qualifiers: Pneumonia type: due to unspecified organism Laterality: left Lung location: unspecified part of lung Qualified Code(s): J18.9 - Pneumonia, unspecified organ ism Sepsis Qualifiers: Sepsis type: sepsis due to unspecified organism Sepsis acute organ dysfunction status: unspecified Qualified Code(s): A41.9 - Sepsis, unspecified organism COPD (chronic obstructive pulmonary disease) Qualifiers: COPD type: unspecified COPD Qualified Code(s): J44.9 - Chronic obstructive pulmonary disease, unspecified Disposition: 09 OP ADMIT IP TO THIS HOSP Is pt being admited?: Yes Does the pt Need Aspirin: No Condition: Critical Time of Disposition: 10:25
[2019-05-31] MEDS ORDERED: ZEMURON IV ONE (08:51)
[2019-05-31] MEDS ORDERED: AMIDATE IV ONE (08:51)
[2019-05-31] MEDS ORDERED: fentaNYL DRIP Premix 2,000 MCG/100 ML BAG IV SCH (09:00)
--- NOTE | 2019-05-31 09:15 | XRay Report ---
CHEST 1 VIEW INDICATION: intubation. sob. COMPARISON: 05/26/2019 FINDINGS: Support devices: An endotracheal tube is been inserted and is in satisfactory position above the liudmila na. Heart: Within normal limits. Lungs/Pleura: Stable whiteout of the right hemithorax with no shift of the mediastinum. Diffusely inc reased reticular interstitial opacities of the left lung. No left pleural effusion.. Additional findings: None. IMPRESSION: 1. Satisfactory position of the endotracheal tube. 2. Stable atelectasis of the right lung. 3. Increased reticular interstitial opacities of the left lung suggest an interstitial pneumonia. Signer Name: Leonides Pierce MD Signed: 05/31/2019 9:11 AM Workstation Name: [id number]
[2019-05-31 09:35] LABS: Hematocrit 31.6 % (35.5-45.6); Hemoglobin 10.4 gm/dl (11.8-15.2); Mean Corpuscular HGB Conc 33 % (32-34); Mean Corpuscular Volume 91 fl (84-94); Platelet Count 158 K/mm3 (140-440); Red Blood Count 3.46 M/mm3 (3.65-5.03); Red Cell Distribution Width 19.9 % (13.2-15.2)
[2019-05-31 09:52] LABS: Alanine Aminotransferase 41 units/L (7-56); Albumin 2.4 g/dL (3.9-5); BUN/Creatinine Ratio 57; Blood Urea Nitrogen 17 mg/dL (9-20); Calcium 8.2 mg/dL (8.4-10.2); Hemolysis Index 15
[2019-05-31] MEDS ORDERED: MAXIPIME/NS 2 GM/100 ML 2 GM/100 ML BAG IV ONE ×2 (09:55→11:51)
[2019-05-31 10:11] LABS: Amorphous Crystals,Urine 1+; Bacteria,Urine 1+ /HPF (Negative); Bilirubin,Urine NEG (Negative); Blood,Urine SM (Negative); Color,Urine Straw (Yellow); Mucus,Urine FEW /HPF; Protein,Urine <15 mg/dL mg/dL (Negative); Urobilinogen,Urine < 2.0 mg/dL (<2.0); WBC,Urine < 1.0 /HPF (0.0-6.0)
[2019-05-31 10:33] LABS: Basophils % (Manual) 0 % (0.0-1.8); Total Cells Counted 100
[2019-05-31 10:35] LABS: Anisocytosis 1+
[2019-05-31 10:36] LABS: Target Cells Rare
[2019-05-31 10:37] LABS: Platelet Estimate Consistent w Auto
--- NOTE | 2019-05-31 11:24 | Consultation ---
History of Present Illness Consult date: 05/31/19 Requesting physician: BREEZY ENAMORADO Reason for consult: other (Acute Hypoxemic Resp Failure; Metastatic Lung CA) History of present illness: PULMONARY/CCM CONSULT NOTE (Full dictation # [id number]) Please see dictated notes for full details Medications and Allergies Allergies Allergy/AdvReac Type Severity Reaction Status Date / Time No Known Allergies Allergy Verified 05/12/19 17:25 Home Medications Medication Instructions Recorded Confirmed Last Taken Type Folic Acid [Folvite] 1 mg PO QDAY #30 tablet 04/17/19 05/26/19 05/24/19 Rx Furosemide [Lasix TAB] 20 mg PO QDAY #30 tablet 04/17/19 05/26/19 05/24/19 Rx Temazepam [Restoril] 15 mg PO QHS PRN #7 capsule 04/17/19 05/26/19 05/23/19 Rx Thiamine [Vitamin B-1] 100 mg PO QDAY #30 tablet 04/17/19 05/26/19 05/24/19 Rx ALBUTEROL Inhaler (OR & NICU) 2 puff IH QID PRN 30 Days #1 pump 05/28/19 Unknown Rx [ProAir HFA Inhaler] Ipratropium/Albuterol Sulfate 1 ampul IH Q6HRT #120 ampul.neb 05/28/19 Unknown Rx [DUONEB *Not for PRN Use*] Prednisone [predniSONE 10 mg 10 mg PO .TAPER #1 tab.ds.pk 05/28/19 Unknown Rx (6-Day Pack, 21 Tabs)] oxyCODONE /ACETAMINOPHEN [Percocet 1 tab PO Q6H PRN #14 tablet 05/28/19 Unknown Rx 5/325 mg] Active Meds: Active Medications Fentanyl Citrate (Fentanyl Drip Premix) 2,000 mcg in 100 mls @ 2.5 mls/hr IV TITR FRANCISCO JAVIER; Protocol Last Titration: 05/31/19 09:49 Dose: 2 mcg/kg/hr, 5 mls/hr Documented by: Norepinephrine (Levophed Drip 4 Mg/Ns 250 Ml) 4 mg in 250 mls @ 7.5 mls/hr IV TITR FRANCISCO JAVIER; Protocol Last Titration: 05/31/19 10:44 Dose: 14 mcg/min, 52.5 mls/hr Documented by: Physical Examination Vital signs: Vital Signs Pulse Resp Pulse Ox 120 H 20 96 05/31/19 08:24 05/31/19 08:24 05/31/19 08:24 Results - Laboratory Findings CBC and BMP: 05/31/19 09:24 05/31/19 09:24 ABG POC ABG pH 7.249 (7.35-7.45) L 05/31/19 09:59 POC ABG pO2 373 (80-105) H 05/31/19 09:59 POC ABG HCO3 38.8 (22-26 mml/L) 05/31/19 09:59 POC ABG Total CO2 41 (23-27mmol/L) 05/31/19 09:59 POC ABG O2 Sat 100 05/31/19 09:59 Abnormal lab findings: Abnormal Labs 05/31/19 05/31/19 05/31/19 09:24 09:24 09:46 WBC 28.5 H RBC 3.46 L Hgb 10.4 L Hct 31.6 L RDW 19.9 H Seg Neuts % (Manual) 93.0 H Lymphocytes % (Manual) 4.0 L Seg Neutrophils # Man 26.5 H Lymphocytes # (Manual) 1.1 L POC ABG pH POC ABG pO2 Chloride 94.9 L Carbon Dioxide 37 H Creatinine 0.3 L Calcium 8.2 L Alkaline Phosphatase 151 H Total Protein 5.3 L Albumin 2.4 L Urine pH 8.0 H 05/31/19 09:59 WBC RBC Hgb Hct RDW Seg Neuts % (Manual) Lymphocytes % (Manual) Seg Neutrophils # Man Lymphocytes # (Manual) POC ABG pH 7.249 L POC ABG pO2 373 H Chloride Carbon Dioxide Creatinine Calcium Alkaline Phosphatase Total Protein Albumin Urine pH
[2019-05-31] MEDS ORDERED: NACL 0.9% 1000 ML 2,000 ML ONE (11:51)
[2019-05-31] MEDS ORDERED: VASELINE LIP THERAPY TP PRN (13:17)
[2019-05-31] MEDS ORDERED: ARTIFICIAL TEARS OPHTH OINT OU PRN (13:17)
[2019-05-31] MEDS ORDERED: SUBLIMAZE IV PRN (13:17)
--- NOTE | 2019-05-31 14:29 | History and Physical Report ---
History of Present Illness Date of examination: 05/31/19 Date of admission: 05/31/19 10:27 Chief complaint: SOB History of present illness: Patient is a 68 yo man with a plethora of severe End-Stage co-morbidities including chronic respiratory failure, severe malnutrition, HAP, right sided NSCLC with complete opacification, trachea deviation of the right lung s/p [address] Garcia, tobacco dependency and prior TB who presents to [facility] ED for his 4th admission this month with SOB associated with terminal Lung Cancer. He was just discharged from here on 05/29/19 into hospice under DNR only to return today with SOB from the terminal lung cancer because he was changed from DNR to full code when he went into Hospice. He was in so much respiratroy distress, EMS was bagging him into the ED. After Intubation, patient had a cardiac arrest with successful resucistation after 1 round of Epi with chest compression. He was hypotensive; therefore, Norepinephrine drip was started and central line placed. PMH: as hpi PSH: unable to obtain due to ETT/sedation SH: unable to obtain due to ETT/sedation FH: unable to obtain due to ETT/sedation ROS unable to obtain due to ETT/sedation Medications and Allergies Allergies Allergy/AdvReac Type Severity Reaction Status Date / Time No Known Allergies Allergy Verified 05/12/19 17:25 Home Medications Medication Instructions Recorded Confirmed Last Taken Type Folic Acid [Folvite] 1 mg PO QDAY #30 tablet 04/17/19 05/26/19 05/24/19 Rx Furosemide [Lasix TAB] 20 mg PO QDAY #30 tablet 04/17/19 05/31/19 05/24/19 Rx Temazepam [Restoril] 15 mg PO QHS PRN #7 capsule 04/17/19 05/31/19 05/23/19 Rx Thiamine [Vitamin B-1] 100 mg PO QDAY #30 tablet 04/17/19 05/26/19 05/24/19 Rx ALBUTEROL Inhaler (OR & NICU) 2 puff IH QID PRN 30 Days #1 pump 05/28/19 Unknown Rx [ProAir HFA Inhaler] Ipratropium/Albuterol Sulfate 1 ampul IH Q6HRT #120 ampul.neb 05/28/19 05/31/19 Unknown Rx [DUONEB *Not for PRN Use*] Prednisone [predniSONE 10 mg 10 mg PO .TAPER #1 tab.ds.pk 05/28/19 Unknown Rx (6-Day Pack, 21 Tabs)] oxyCODONE /ACETAMINOPHEN [Percocet 1 tab PO Q6H PRN #14 tablet 05/28/19 05/31/19 Unknown Rx 5/325 mg] Docusate Sodium [Colace CAP] 1 cap PO PRN PRN 05/31/19 05/31/19 Unknown History Fluconazole [Diflucan TAB] 150 mg PO PRN PRN 05/31/19 05/31/19 Unknown History LORazepam [Ativan] 0.5 mg PO Q6H PRN 05/31/19 05/31/19 Unknown History Active Meds: Active Medications Famotidine (Pepcid) 20 mg PO QDAY FRANCISCO JAVIER Fentanyl (Sublimaze) 50 mcg IV Q2H PRN PRN Reason: Pain , Severe (7-10) Heparin Sodium (Porcine) (Heparin) 5,000 unit SUB-Q Q12HR FRANCISCO JAVIER Hydrophilic Ointment (Vaseline Lip Therapy) 1 applic TP Q2HR PRN PRN Reason: Dry Lips Fentanyl Citrate (Fentanyl Drip Premix) 2,000 mcg in 100 mls @ 2.5 mls/hr IV TITR FRANCISCO JAVIER; Protocol Last Titration: 05/31/19 13:04 Dose: 0 mcg/kg/hr, 0 mls/hr Documented by: Norepinephrine (Levophed Drip 4 Mg/Ns 250 Ml) 4 mg in 250 mls @ 7.5 mls/hr IV TITR FRANCISCO JAVIER; Protocol Last Admin: 05/31/19 14:01 Dose: 12 mcg/min, 45 mls/hr Documented by: Multi-Ingred Cream/Lotion/Oil/Oint (Artificial Tears Ophth Oint) 1 applic OU Q4HR PRN PRN Reason: Dry Eye(s) Exam - Physical Exam Narrative exam: Gen: thin frail, BMI 17, chronically ill appearing, intubated and sedated, HEENT: NCAT, ETT in place,sunken protestant muscles, Neck: supple, no adenopathy, no thyromegaly, no JVD CVS/Heart: Regular tachycardia, normal S1S2, pulses present bilaterally Chest/Lungs: severely reduced right BS, Symmetrical chest expansion, good air entry bilaterally on MV GI/Abdomen: soft, NTND, good bowel sounds, no guarding or rebound /Bladder: no suprapubic tenderness, no CVA or paraspinal tenderness Extermity/Skin: multiple tattoos on chest and left, muscle wasting hypotenar muscles MSK: intubated and sedated, Neuro: intubated and sedated, Psych: intubated and sedated, - Constitutional Vitals: Temp Pulse Resp BP Pulse Ox 99.3 F 111 H 26 H 90/59 95 05/31/19 08:32 05/31/19 11:15 05/31/19 11:15 05/31/19 11:15 05/31/19 11:15 Results - Labs CBC & Chem 7: 05/31/19 09:24 05/31/19 09:24 Labs: Abnormal lab results 05/31/19 05/31/19 05/31/19 Range/Units 09:24 09:24 09:46 WBC 28.5 H (4.5-11.0) K/mm3 RBC 3.46 L (3.65-5.03) M/mm3 Hgb 10.4 L (11.8-15.2) gm/dl Hct 31.6 L (35.5-45.6) % RDW 19.9 H (13.2-15.2) % Seg Neuts % (Manual) 93.0 H (40.0-70.0) % Lymphocytes % (Manual) 4.0 L (13.4-35.0) % Seg Neutrophils # Man 26.5 H (1.8-7.7) K/mm3 Lymphocytes # (Manual) 1.1 L (1.2-5.4) K/mm3 POC ABG pH (7.35-7.45) POC ABG pO2 (80-105) Chloride 94.9 L (98-107) mmol/L Carbon Dioxide 37 H (22-30) mmol/L Creatinine 0.3 L (0.8-1.5) mg/dL Calcium 8.2 L (8.4-10.2) mg/dL Alkaline Phosphatase 151 H (35-129) units/L Total Protein 5.3 L (6.3-8.2) g/dL Albumin 2.4 L (3.9-5) g/dL Urine pH 8.0 H (5.0-7.0) 05/31/19 05/31/19 Range/Units 09:59 12:25 WBC (4.5-11.0) K/mm3 RBC (3.65-5.03) M/mm3 Hgb (11.8-15.2) gm/dl Hct (35.5-45.6) % RDW (13.2-15.2) % Seg Neuts % (Manual) (40.0-70.0) % Lymphocytes % (Manual) (13.4-35.0) % Seg Neutrophils # Man (1.8-7.7) K/mm3 Lymphocytes # (Manual) (1.2-5.4) K/mm3 POC ABG pH 7.249 L 7.296 L (7.35-7.45) POC ABG pO2 373 H (80-105) Chloride (98-107) mmol/L Carbon Dioxide (22-30) mmol/L Creatinine (0.8-1.5) mg/dL Calcium (8.4-10.2) mg/dL Alkaline Phosphatase (35-129) units/L Total Protein (6.3-8.2) g/dL Albumin (3.9-5) g/dL Urine pH (5.0-7.0) Assessment and Plan Patient is a 68 yo man with a plethora of severe End-Stage co-morbidities including chronic respiratory failure, severe malnutrition, HAP, right sided NS CLC with complete opacification, trachea deviation of the right lung s/p [address] Garcia, tobacco dependency and prior TB who presents to [facility] ED for his 4th admission this month with SOB associated with terminal Lung Cancer. He was just discharged from here on 05/29/19 into hospice under DNR only to return today with SOB from the terminal lung cancer because he was changed from DNR to full code when he went into Hospice. He was in so much respiratroy distress, EMS was bagging him into the ED. After Intubation, patient had a cardiac arrest with successful resucistation after 1 round of Epi with chest compression. He was hypotensive; therefore, Norepinephrine drip was started and central line placed. Acute on chronic hypoxic respiratory due to terminal lung cancer s/p ETT: consult Pulm/CCM, MV Cardiac arrest: medical management, check ECHO Septic shock from post-obstructive pneumonia: treat with dual IV abx, consult ID, treat with vasopressors Postobstructive Pneumonia: consulted ID and Pulmonology, treat with abx NSCLC: consulted Heme/Onc Suspected severe malnutrition: NGT soon, consult Stop Attacher DVT/GI ppx reviewed full code prior EF 50%, give more volume CCT 36 minutes
[2019-05-31] MEDS ORDERED: SIMPLE SYRUP FEEDTUBE PRN ×2 (14:31)
[2019-05-31] MEDS ORDERED: PANCREAZE DR 10,500 UNIT FEEDTUBE PRN (14:31)
[2019-05-31] MEDS ORDERED: SODIUM BICARBONATE FEEDTUBE PRN (14:31)
--- NOTE | 2019-05-31 14:53 | Consultation ---
History of Present Illness - Reason for Consult Consult date: 05/31/19 - History of Present Illness 68 yo M PMhx COPD, chronic respiratory failure, NSCLC, history of TB, severe malnutrition, Hx of HAP. This is his 4th admission this month all due the SOB associated with his terminal lung cancer. He was recently made a DNR and transferred to hospice, before becoming a full code again while there. During his transport here he needed to be bagged by EMS due to his respiratory distress. He then had a cardiac arrest and was resuscitated with chest compressions. He is currently on pressors due to hypotension. Afebrile on admission with a leukocytosis to 29. Currently receiving vancomycin and cefepime. Blood cultures from 05/31 are NGTD. Tachycardic and tachypneic. imaging personally reviewed: 05/31 CXR: R opacification. New L interstitial PNA. Past History Past Medical History: cancer, COPD Past Surgical History: Other (Unable to obtain due to intubation) Social history: other (Unable to obtain due to intubation) Family history: other (Unable to obtain due to intubation. ) Medications and Allergies Allergies Allergy/AdvReac Type Severity Reaction Status Date / Time No Known Allergies Allergy Verified 05/12/19 17:25 Home Medications Medication Instructions Recorded Confirmed Last Taken Type Folic Acid [Folvite] 1 mg PO QDAY #30 tablet 04/17/19 05/26/19 05/24/19 Rx Furosemide [Lasix TAB] 20 mg PO QDAY #30 tablet 04/17/19 05/31/19 05/24/19 Rx Temazepam [Restoril] 15 mg PO QHS PRN #7 capsule 04/17/19 05/31/19 05/23/19 Rx Thiamine [Vitamin B-1] 100 mg PO QDAY #30 tablet 04/17/19 05/26/19 05/24/19 Rx ALBUTEROL Inhaler (OR & NICU) 2 puff IH QID PRN 30 Days #1 pump 05/28/19 Unknown Rx [ProAir HFA Inhaler] Ipratropium/Albuterol Sulfate 1 ampul IH Q6HRT #120 ampul.neb 05/28/19 05/31/19 Unknown Rx [DUONEB *Not for PRN Use*] Prednisone [predniSONE 10 mg 10 mg PO .TAPER #1 tab.ds.pk 05/28/19 Unknown Rx (6-Day Pack, 21 Tabs)] oxyCODONE /ACETAMINOPHEN [Percocet 1 tab PO Q6H PRN #14 tablet 05/28/19 05/31/19 Unknown Rx 5/325 mg] Docusate Sodium [Colace CAP] 1 cap PO PRN PRN 05/31/19 05/31/19 Unknown History Fluconazole [Diflucan TAB] 150 mg PO PRN PRN 05/31/19 05/31/19 Unknown History LORazepam [Ativan] 0.5 mg PO Q6H PRN 05/31/19 05/31/19 Unknown History Active Meds: Active Medications Lipase/Protease/Amylase (Pancreaze Dr 10,500 Unit) 1 each FEEDTUBE PRN PRN PRN Reason: For Clogged Feeding Tube Famotidine (Pepcid) 20 mg PO QDAY FRANCISCO JAVIER Fentanyl (Sublimaze) 50 mcg IV Q2H PRN PRN Reason: Pain , Severe (7-10) Heparin Sodium (Porcine) (Heparin) 5,000 unit SUB-Q Q12HR FRANCISCO JAVIER Hydrophilic Ointment (Vaseline Lip Therapy) 1 applic TP Q2HR PRN PRN Reason: Dry Lips Fentanyl Citrate (Fentanyl Drip Premix) 2,000 mcg in 100 mls @ 2.5 mls/hr IV TITR FRANCISCO JAVIER; Protocol Last Titration: 05/31/19 13:04 Dose: 0 mcg/kg/hr, 0 mls/hr Documented by: Norepinephrine (Levophed Drip 4 Mg/Ns 250 Ml) 4 mg in 250 mls @ 7.5 mls/hr IV TITR FRANCISCO JAVIER; Protocol Last Admin: 05/31/19 14:01 Dose: 12 mcg/min, 45 mls/hr Documented by: Sodium Chloride (Nacl 0.9% 1000 Ml) 1,000 mls @ 999 mls/hr IV BOLUS ONE Stop: 05/31/19 15:29 Cefepime HCl (Maxipime/Ns 1 Gm/100 Ml) 1 gm in 100 mls @ 200 mls/hr IV Q8HR FRANCISCO JAVIER; Protocol Multi-Ingred Cream/Lotion/Oil/Oint (Artificial Tears Ophth Oint) 1 applic OU Q4HR PRN PRN Reason: Dry Eye(s) Simple Syrup (Simple Syrup) 15 ml FEEDTUBE PRN PRN PRN Reason: Hypoglycemia Simple Syrup (Simple Syrup) 30 ml FEEDTUBE PRN PRN PRN Reason: Hypoglycemia Sodium Bicarbonate (Sodium Bicarbonate) 325 mg FEEDTUBE PRN PRN PRN Reason: For Clogged Feeding Tube Review of Systems ROS unobtainable: due to endotracheal tube Physical Examination - Physical Exam Narrative exam: Physical Exam: Constitutional: Intubated, sedated, cachectic. Head, Ears, Nose: Normocephalic, atraumatic. External ears, nose normal Eyes: Conjunctivae/corneas clear. No icterus. No ptosis. Neck: Supple, no meningeal signs Oral: dentition poor, no thrush Cardiovascular: S1, S2 normal. Respiratory: Absent breath sounds on R. GI: Soft, non-tender; bowel sounds normal. No peritoneal signs. Musculoskeletal: No pedal edema, no cyanosis. Skin: No rash or abscess Hem/Lymphatic: No palpable cervical or supraclavicular nodes. No lymphangitis Neurological: Sedated - Constitutional Vitals: Vital Signs Temp Pulse Resp BP Pulse Ox 99.3 F 111 H 26 H 90/59 95 05/31/19 08:32 05/31/19 11:15 05/31/19 11:15 05/31/19 11:15 05/31/19 11:15 Temperature -Last 24 Hours Temperature 99.3 F Results - Labs CBC & Chem 7: 05/31/19 09:24 05/31/19 09:24 Labs: Abnormal lab results 05/31/19 05/31/19 05/31/19 Range/Units 09:24 09:24 09:46 WBC 28.5 H (4.5-11.0) K/mm3 RBC 3.46 L (3.65-5.03) M/mm3 Hgb 10.4 L (11.8-15.2) gm/dl Hct 31.6 L (35.5-45.6) % RDW 19.9 H (13.2-15.2) % Seg Neuts % (Manual) 93.0 H (40.0-70.0) % Lymphocytes % (Manual) 4.0 L (13.4-35.0) % Seg Neutrophils # Man 26.5 H (1.8-7.7) K/mm3 Lymphocytes # (Manual) 1.1 L (1.2-5.4) K/mm3 POC ABG pH (7.35-7.45) POC ABG pO2 (80-105) Chloride 94.9 L (98-107) mmol/L Carbon Dioxide 37 H (22-30) mmol/L Creatinine 0.3 L (0.8-1.5) mg/dL Calcium 8.2 L (8.4-10.2) mg/dL Alkaline Phosphatase 151 H (35-129) units/L Total Protein 5.3 L (6.3-8.2) g/dL Albumin 2.4 L (3.9-5) g/dL Urine pH 8.0 H (5.0-7.0) 05/31/19 05/31/19 Range/Units 09:59 12:25 WBC (4.5-11.0) K/mm3 RBC (3.65-5.03) M/mm3 Hgb (11.8-15.2) gm/dl Hct (35.5-45.6) % RDW (13.2-15.2) % Seg Neuts % (Manual) (40.0-70.0) % Lymphocytes % (Manual) (13.4-35.0) % Seg Neutrophils # Man (1.8-7.7) K/mm3 Lymphocytes # (Manual) (1.2-5.4) K/mm3 POC ABG pH 7.249 L 7.296 L (7.35-7.45) POC ABG pO2 373 H (80-105) Chloride (98-107) mmol/L Carbon Dioxide (22-30) mmol/L Creatinine (0.8-1.5) mg/dL Calcium (8.4-10.2) mg/dL Alkaline Phosphatase (35-129) units/L Total Protein (6.3-8.2) g/dL Albumin (3.9-5) g/dL Urine pH (5.0-7.0) Assessment and Plan Cultures: 05/31 BCx: A/P: 68 yo M PMhx COPD, chronic respiratory failure, NSCLC, history of TB, severe malnutrition, Hx of HAP admitted with respiratory failure 1. Septic shock secondary to pneumonia - Leukocytosis, tachycardia, tachypneic requiring pressors. New infiltrate seen on CXR. Has severe baseline lung disease and is thus at high risk for infections. Agree with cefepime and vancomycin for now, please obtain sputum cultures. His cancer was diagnosed in March and he was ruled out for TB at that time. 2. Remote history of latent TB - [facility]. 3. Chronic respiratory failure 4. NSCLC - s/p radiation therapy 5. COPD 6. Severe malnutrition Recs: - increased cefepime to 2g q8h - continue vancomycin dosed per pharmacy. Appreciate their assistance. Goal [facility] 15-20. - follow up blood cultures - follow up sputum cultures. - [place]: grim Thank you for the consult, we will continue to follow. Alicja García MD [facility] ([facility] M: [phone] O: [phone] F: [phone]
[2019-05-31] MEDS ORDERED: VANCOMYCIN PHARMACY TO DOSE IV SCH (15:00)
[2019-05-31] MEDS ORDERED: VANCOMYCIN/NS 1 GM/250 ML 1 GM/250 ML BAG IV ONE (16:00)
[2019-05-31] MEDS ORDERED: MAXIPIME/NS 1 GM/100 ML 1 GM/100 ML BAG IV SCH (18:00)
[2019-05-31] MEDS: HEPARIN SUB-Q SCH (21:10)
--- NOTE | 2019-05-31 21:34 | XRay Report ---
SINGLE VIEW ABDOMEN 05/31/2019 INDICATION / CLINICAL INFORMATION: oral tube placement confirmation. COMPARISON: 05/31/2019 portable chest x-ray FINDINGS: The endotracheal tube remains in satisfactory position. Interstitial opacity in the left lung is unchanged. Complete opacification of the right hemithorax possibly due to obstruction at the level the right akanksha n bronchus. Nasogastric tube is not visualized. There is mild gaseous distention of the stomach. Signer Name: Henok Abdi MD Signed: 05/31/2019 9:30 PM Workstation Name: [id number]
[2019-05-31] MEDS: MAXIPIME/NS 2 GM/100 ML 2 GM/100 ML BAG IV SCH (23:23)
--- NOTE | 2019-05-31 23:55 | XRay Report ---
ABDOMEN 1 VIEW(S) INDICATION / CLINICAL INFORMATION: OGT replacement. COMPARISON: None available. FINDINGS: TUBES / LINES: NG tube has its sidehole the distal esophagus. This could be advanced 5 cm. The tip do es lie within the stomach. BOWEL GAS PATTERN: No significant abnormality. ADDITIONAL FINDINGS: Complete opacification again noted at the right hemithorax. Signer Name: Anand Hernandez MD Signed: 05/31/2019 11:51 PM Workstation Name: [id number]
--- NOTE | 2019-06-01 02:25 | Consultation ---
PULMONARY CRITICAL CARE CONSULTATION CONSULTING PHYSICIAN: Quinten Mitchell M.D. REASON FOR CONSULTATION: [id number] hypoxemic respiratory failure, on mechanical ventilatory support. CHIEF COMPLAINT AND HISTORY OF PRESENT ILLNESS: The patient is a 68-year-old male with past medical history significant amongst other things for non-small cell lung cancer who has had multiple episodes of cardiopulmonary decompensation. He was recently at the Emergency Room apparently and his code status has been equivocal, but it seems the last time he was here, he might have decided to be DNR. He was brought into the Emergency Room today by EMS due to difficulty breathing. In the ER, he was minimally responsive. Attempts were made to try and figure out the code status. There were no family members that could be contacted. Out of preponderance of caution, the Emergency Room physician endotracheally intubated the patient and put him on mechanical ventilatory support. We are asked to assist with management. When I stopped by to see him, he was on mechanical ventilator, assist control, rate of 24, tidal volumes 500, PEEP of 6, and 50% FiO2. He was nonresponsive, but he was on a fentanyl drip at 2 mcg/kg per minute. I do not have any history of any trauma prior to coming in. I do not have any history of nausea, vomiting, or overt aspiration. I do not have any history of hemoptysis. The patient does have a 10+ pack-year tobacco smoking history and history of alcohol abuse. This is really as much of the history of presentation as I have. PAST MEDICAL HISTORY: 1. Non-small cell lung cancer. 2. Chronic hypoxemic respiratory failure, on home oxygen. 3. History of COPD. 4. History of tuberculosis, status post treatment in 1986. PAST SURGICAL HISTORY: Unknown. MEDICATIONS: He was on at the time I stopped by to see him were reviewed. They included a fentanyl drip at 2 mcg/kg per hour and Levophed going at 14 mcg per minute. ALLERGIES: No known drug allergies. DIET: Thin gentleman. He has lost about 5-10 pounds over the past 3-6 months. FAMILY AND SOCIAL HISTORY: He reportedly has a brother who is not able to be contacted at this time. Family history is otherwise noncontributory. REVIEW OF SYSTEMS: Unobtainable secondary to patient's medical and mental condition. Since he has been here, no gross hematochezia or melena, no gross hematuria, no hematemesis, no bloody tracheal secretions and no witnessed seizures. Review of systems otherwise unobtainable or as in the body of history above. PHYSICAL EXAMINATION: VITAL SIGNS: On examination at presentation, he had a low-grade fever of 99.3 degrees Fahrenheit rectally with a pulse of 120, respiratory rate of 20, blood pressure 90/60, oxygen sats were 96%, inspired oxygen concentration at that time was not recorded. GENERAL: He is a thin, elderly looking male. Normocephalic, atraumatic, on the mechanical ventilator riding the set rate without significant patient-ventilator dyssynchrony. HEAD, EYES, EARS, NOSE AND THROAT: He is anicteric. No conjunctival erythema. Oropharynx appears dry. Endotracheal tube is taped at the lips around 23-24 cm. No gross jugular venous distention, no thyromegaly. LUNGS: Auscultation of both lung leos with absent breath sounds on the right and scant rhonchi in the left. No wheezing. HEART: Heart sounds 1 and 2 were heard. They were regular in rate and rhythm at time of my evaluation without overt rubs or murmurs. ABDOMEN: Soft, flat. Bowel sounds are positive, nontender, no palpable hepatosplenomegaly. EXTREMITIES: Without overt digital clubbing or cyanosis and no pedal edema. Pedal pulses are strong bilaterally 2+. NEUROLOGIC: Pupils are equal, round, about 4 mm, reactive to light. Extraocular muscle movements could not be assessed. He was sedated, not moving any extremities spontaneously. The skin was of poor turgor without overt cellulitis. He does have a sacral decubitus ulcer. Mood and affect could not be evaluated. LABORATORY DATA: From my review are as follows. Admission white cell count 28,500 with a hemoglobin of 10.4, hematocrit of 31.6, and platelet count of 158. No band forms reported on the differential. Arterial blood gas at presentation showed a pH of 7.25, pCO2 of 373, pO2 of 39 that was on 100% FiO2 above-mentioned vent settings except for the rate was 20 at that time. Serum sodium 141, potassium 4.2, chloride 95, bicarbonate 37, BUN 17, creatinine 0.3, glucose was 98. Liver function test within normal limits essentially except for albumin, which was low at 2.4. Troponin within normal limits. Urinalysis was negative for nitrites and leukocyte esterase and unremarkable really. Two sets of blood cultures have been sent, no growth to date. Chest x-ray was done. I have reviewed the chest x-ray. It reveals an endotracheal tube with the tip below the clavicular heads around the level of the aortic knob, complete right lung whiteout and left lung with increased interstitial markings. Compared to the most recent chest x-ray on the , no significant change. ASSESSMENT: 1. Acute on chronic hypoxemic respiratory failure, now on mechanical ventilatory support. 2. Complete right lung atelectasis, present on arrival. 3. Non-small cell lung cancer, previously diagnosed and metastatic. 4. Leukocytosis. 5. Anemia that is normocytic. 6. Hypoalbuminemia. 7. Adult failure to thrive. PLAN: There is a friend in the room. She will try and see if there are any family members that can be reached. We may need to involve the risk management team over here. It seems like the patient might have previously expressed that he wanted to be a do not resuscitate. In the meantime, I will aggressively wean him. We will increase tidal volumes to 350 mL, but the drop the rate to 20. I have asked them to hold the fentanyl drip and see if spontaneous respiratory effort will not be enough to get him off the breathing machine. Aspiration precautions will be maintained. Ventilator-associated pneumonia bundle has been introduced. Short-acting bronchodilators will be ordered. Empiric antibiotic therapy will be continued. He has received cefepime in the Emergency Room. I will treat him with Levaquin. I will get a lactic acid level and CRP level to aid clinical decision making down the road. We will trend as necessary. He will be placed on GI prophylaxis as well as DVT prophylaxis. Flu and pneumonia vaccination will be addressed per protocol. Thank you very much for the consult, Dr. Mitchell. We will follow along and make further recommendations as picture progresses/becomes clearer. He is critically ill, on life-sustaining interventions including mechanical ventilatory support at high risk of /decompensation. At this time, we spent about 40 minutes of critical care time without overlap and excluding any procedural time that may be necessary. JOB# [id number] GIOVANNI/NTS
--- NOTE | 2019-06-01 02:57 | XRay Report ---
CHEST 1 VIEW INDICATION: follow up respiratory failure. COMPARISON: Previous day. FINDINGS: Support devices: NG tube and endotracheal tube remain. Heart: Within normal limits. Lungs/Pleura: Complete opacification of the right hemithorax remains. The left lung contains no signi ficant infiltrate. Mild increased interstitial markings remain. Additional findings: None. IMPRESSION: Stable chest. Signer Name: Anand Hernandez MD Signed: 06/01/2019 2:52 AM Workstation Name: [email or web address]
[2019-06-01] MEDS ORDERED: VANCOMYCIN 750 MG in NACL 0.9% 250ML 250 ML IV SCH (04:00)
[2019-06-01] MEDS: MAXIPIME/NS 2 GM/100 ML 2 GM/100 ML BAG IV SCH ×3 (05:26→21:49)
[2019-06-01 05:29] LABS: ABG Base Excess 2.6 mmol/L (-2.0-3.0); ABG HCO3 28.5 mmol/L (20.0-26.0); ABG Methemoglobin 0.5 % (0.0-1.5); ABG PCO2 50.8 mm Hg; ABG PH 7.367 pH Units (7.350-7.450); ABG PO2 114.4 mm Hg (80.0-90.0)
[2019-06-01] MEDS: LEVOPHED DRIP 4 MG/NS 250 ML 4 MG/250 ML BAG IV SCH (06:03)
[2019-06-01 06:24] LABS: BUN/Creatinine Ratio 77; Blood Urea Nitrogen 23 mg/dL (9-20); Hematocrit 27.6 % (35.5-45.6); Hemoglobin 8.7 gm/dl (11.8-15.2); Hemolysis Index 4; Mean Corpuscular HGB Conc 32 % (32-34); Mean Corpuscular Volume 94 fl (84-94); Platelet Count 116 K/mm3 (140-440); Red Blood Count 2.94 M/mm3 (3.65-5.03)
[2019-06-01 06:50] LABS: Red Cell Distribution Width 20.8 % (13.2-15.2)
--- NOTE | 2019-06-01 07:18 | Progress Note ---
Assessment and Plan Assessment and plan: Patient is a 68 yo man with a plethora of severe End-Stage co-morbidities including chronic respiratory failure, severe malnutrition, HAP, right sided NSCLC with complete opacification and trachea deviation of the right lung s/p [address] Garcia, tobacco dependency and prior TB s/p treatment who presented to [facility] ED for his 4th admission this month with extremely respiratory distress, SOB associated with the terminal Lung Cancer. He was just discharged from here on 05/29/19 into home hospice with DNR status that [facility] EMS was bagging him into the ED; therefore, he required Intubation. About 15 minutes after Intubation, patient had a cardiac arrest with successful resuscitation after 1 round of Epi and chest compression. He was hypotensive; therefore, central line placed in the femoral artery and Norepinephrine drip was started Acute on chronic hypoxic respiratory due to terminal lung cancer s/p ETT: consult Pulm/CCM, MV Cardiac arrest: medical management, check ECHO prior EF 50%, give more IVF rescucitation volume Septic shock from post-obstructive pneumonia: treat with dual IV abx, consult ID, treat with vasopressors Postobstructive Pneumonia: consulted ID and Pulmonology, treat with abx NSCLC: consulted Heme/Onc Suspected severe malnutrition: NGT soon, consult Buffing Turner And Counter DVT/GI ppx reviewed full code Advance NGT 5 cm and then repeat imaging, d/w Charge nurse Sesar Diehl [phone] or [phone] Sushil, Brother Keeley, roommate [phone] CCT 31 minutes History Interval history: Patient was seen and examined. Follow-up on current diagnosis of Respiratory failure. No overnight events reported to me. Imaging, nursing note, chart, labs and old chart reviewed. Hospitalist Physical - Physical exam Narrative exam: Gen: thin frail, BMI 17, chronically ill appearing, intubated and sedated, HEENT: NCAT, ETT in place,sunken jehovah's witness muscles, Neck: supple, no adenopathy, no thyromegaly, no JVD CVS/Heart: Regular tachycardia, normal S1S2, pulses present bilaterally Chest/Lungs: severely reduced right BS, Symmetrical chest expansion, good air entry bilaterally on MV GI/Abdomen: soft, NTND, good bowel sounds, no guarding or rebound /Bladder: no suprapubic tenderness, no CVA or paraspinal tenderness Extermity/Skin: multiple tattoos on chest and left, muscle wasting hypotenar muscles MSK: intubated and sedated, Neuro: intubated and sedated, Psych: intubated and sedated, - Constitutional Vitals: Temp Pulse Resp BP Pulse Ox 97.6 F 99 H 20 102/69 98 06/01/19 04:00 06/01/19 04:55 06/01/19 00:00 06/01/19 04:55 06/01/19 04:55 Results - Labs CBC & Chem 7: 06/01/19 05:40 06/01/19 05:40 Labs: Laboratory Last Values WBC 16.4 K/mm3 (4.5-11.0) H 06/01/19 05:40 RBC 2.94 M/mm3 (3.65-5.03) L 06/01/19 05:40 Hgb 8.7 gm/dl (11.8-15.2) L 06/01/19 05:40 Hct 27.6 % (35.5-45.6) L 06/01/19 05:40 MCV 94 fl (84-94) 06/01/19 05:40 MCH 30 pg (28-32) 06/01/19 05:40 MCHC 32 % (32-34) 06/01/19 05:40 RDW 20.8 % (13.2-15.2) H 06/01/19 05:40 Plt Count 116 K/mm3 (140-440) L 06/01/19 05:40 Add Manual Diff Complete 05/31/19 09:24 Total Counted 100 05/31/19 09:24 Seg Neutrophils % Pharm Spec 05/31/19 09:24 Seg Neuts % (Manual) 93.0 % (40.0-70.0) H 05/31/19 09:24 0 % 05/31/19 09:24 4.0 % (13.4-35.0) L 05/31/19 09:24 Reactive Lymphs % (Man) 0 % 05/31/19 09:24 2.0 % (0.0-7.3) 05/31/19 09:24 1.0 % (0.0-4.3) 05/31/19 09:24 0 % (0.0-1.8) 05/31/19 09:24 0 % 05/31/19 09:24 0 % 05/31/19 09:24 0 % 05/31/19 09:24 0 % 05/31/19 09:24 Nucleated RBC % Not Reportable 05/31/19 09:24 Seg Neutrophils # Man 26.5 K/mm3 (1.8-7.7) H 05/31/19 09:24 Band Neutrophils # 0.0 K/mm3 05/31/19 09:24 1.1 K/mm3 (1.2-5.4) L 05/31/19 09:24 Abs React Lymphs (Man) 0.0 K/mm3 05/31/19 09:24 0.6 K/mm3 (0.0-0.8) 05/31/19 09:24 0.3 K/mm3 (0.0-0.4) 05/31/19 09:24 0.0 K/mm3 (0.0-0.1) 05/31/19 09:24 0.0 K/mm3 05/31/19 09:24 0.0 K/mm3 05/31/19 09:24 0.0 K/mm3 05/31/19 09:24 Blast Cells # 0.0 K/mm3 05/31/19 09:24 WBC Morphology Not Reportable 05/31/19 09:24 Hypersegmented Neuts Not Reportable 05/31/19 09:24 Hyposegmented Neuts Not Reportable 05/31/19 09:24 Hypogranular Neuts Not Reportable 05/31/19 09:24 Not Reportable 05/31/19 09:24 Not Reportable 05/31/19 09:24 Not Reportable 05/31/19 09:24 Not Reportable 05/31/19 09:24 Not Reportable 05/31/19 09:24 Not Reportable 05/31/19 09:24 Consistent w auto 05/31/19 09:24 Not Reportable 05/31/19 09:24 Plt Clumps, EDTA Not Reportable 05/31/19 09:24 Not Reportable 05/31/19 09:24 Not Reportable 05/31/19 09:24 Not Reportable 05/31/19 09:24 Plt Morphology Comment Not Reportable 05/31/19 09:24 RBC Morphology Not Reportable 05/31/19 09:24 Dimorphic RBCs Not Reportable 05/31/19 09:24 Not Reportable 05/31/19 09:24 Not Reportable 05/31/19 09:24 Not Reportable 05/31/19 09:24 1+ 05/31/19 09:24 Rare 05/31/19 09:24 Not Reportable 05/31/19 09:24 Not Reportable 05/31/19 09:24 Not Reportable 05/31/19 09:24 Not Reportable 05/31/19 09:24 Rare 05/31/19 09:24 Not Reportable 05/31/19 09:24 Not Reportable 05/31/19 09:24 Not Reportable 05/31/19 09:24 Not Reportable 05/31/19 09:24 Not Reportable 05/31/19 09:24 Not Reportable 05/31/19 09:24 Not Reportable 05/31/19 09:24 Not Reportable 05/31/19 09:24 Not Reportable 05/31/19 09:24 Acanthocytes (Spur) Not Reportable 05/31/19 09:24 Rouleaux Not Reportable 05/31/19 09:24 Not Reportable 05/31/19 09:24 Not Reportable 05/31/19 09:24 Not Reportable 05/31/19 09:24 Not Reportable 05/31/19 09:24 Hem Pathologist Commnt No 05/31/19 09:24 POC ABG pH 7.327 (7.35-7.45) L 05/31/19 16:27 ABG pH 7.367 pH Units (7.350-7.450) 06/01/19 04:27 POC ABG pCO2 64.0 (35-45) H 05/31/19 16:27 ABG pCO2 50.8 mm Hg 06/01/19 04:27 POC ABG pO2 67 (80-105) L 05/31/19 16:27 ABG pO2 114.4 mm Hg (80.0-90.0) H 06/01/19 04:27 POC ABG HCO3 33.5 (22-26 mml/L) 05/31/19 16:27 ABG HCO3 28.5 mmol/L (20.0-26.0) H 06/01/19 04:27 POC ABG Total CO2 35 (23-27mmol/L) 05/31/19 16:27 POC ABG O2 Sat 91 05/31/19 16:27 ABG O2 Saturation 98.0 % (95.0-99.0) 06/01/19 04:27 ABG O2 Content 13.1 (0.0-44) 06/01/19 04:27 POC ABG Base Excess 8 ((-2) - (+3)mmol/L) 05/31/19 16:27 ABG Base Excess 2.6 mmol/L (-2.0-3.0) 06/01/19 04:27 ABG Hemoglobin 9.6 gm/dl (14.0-18.0) L 06/01/19 04:27 ABG Carboxyhemoglobin 1.9 % (0.0-5.0) 06/01/19 04:27 ABG Methemoglobin 0.5 % (0.0-1.5) 06/01/19 04:27 95.6 % (95.0-99.0) 06/01/19 04:27 40 % 06/01/19 04:27 Sodium 147 mmol/L (137-145) H 06/01/19 05:40 Potassium 3.8 mmol/L (3.6-5.0) 06/01/19 05:40 Chloride 110.6 mmol/L (98-107) H 06/01/19 05:40 Carbon Dioxide 27 mmol/L (22-30) D 06/01/19 05:40 13 mmol/L 06/01/19 05:40 BUN 23 mg/dL (9-20) H 06/01/19 05:40 0.3 mg/dL (0.8-1.5) L 06/01/19 05:40 Estimated GFR > 60 ml/min 06/01/19 05:40 77 % 06/01/19 05:40 Glucose 112 mg/dL (75-100) H 06/01/19 05:40 POC Glucose 129 (70-105) H 05/31/19 18:12 Calcium 7.0 mg/dL (8.4-10.2) L 06/01/19 05:40 1.00 mg/dL (0.1-1.2) 05/31/19 09:24 AST 22 units/L (5-40) 05/31/19 09:24 ALT 41 units/L (7-56) 05/31/19 09:24 151 units/L (35-129) H 05/31/19 09:24 0.021 ng/mL (0.00-0.029) 05/31/19 09:24 5.3 g/dL (6.3-8.2) L 05/31/19 09:24 2.4 g/dL (3.9-5) L 05/31/19 09:24 0.8 % 05/31/19 09:24 Straw (Yellow) 05/31/19 09:46 Slightly-cloudy (Clear) 05/31/19 09:46 8.0 (5.0-7.0) H 05/31/19 09:46 Ur Specific Dresser 1.004 (1.003-1.030) 05/31/19 09:46 <15 mg/dl mg/dL (Negative) 05/31/19 09:46 Neg mg/dL (Negative) 05/31/19 09:46 Neg mg/dL (Negative) 05/31/19 09:46 Sm (Negative) 05/31/19 09:46 Neg (Negative) 05/31/19 09:46 Neg (Negative) 05/31/19 09:46 < 2.0 mg/dL (<2.0) 05/31/19 09:46 Ur Leukocyte Esterase Neg (Negative) 05/31/19 09:46 < 1.0 /HPF (0.0-6.0) 05/31/19 09:46 1.0 /HPF (0.0-6.0) 05/31/19 09:46 U Epithel Cells (Auto) 1.0 /HPF (0-13.0) 05/31/19 09:46 1+ /HPF (Negative) 05/31/19 09:46 Amorphous Crystals 1+ 05/31/19 09:46 Few /HPF 05/31/19 09:46 Active Medications - Current Medications Current Medications: Generic Name Dose Route Start Last Admin Trade Name Freq PRN Reason Stop Dose Admin Lipase/Protease/Amylase 1 each 05/31/19 14:[address] 10,500 Unit FEEDTUBE PRN PRN For Clogged Feeding Tube Famotidine 20 mg 06/01/19 10:00 Pepcid PO BID FRANCISCO JAVIER Fentanyl 50 mcg 05/31/19 13:17 05/31/19 23:20 Sublimaze IV 50 mcg Q2H PRN Administration Pain , Severe (7-10) Heparin Sodium (Porcine) 5,000 unit 05/31/19 22:00 05/31/19 21:10 Heparin SUB-Q 5,000 unit Q12HR FRANCISCO JAVIER Administration Hydrophilic Ointment 1 applic 05/31/19 13:17 Vaseline Lip Therapy TP Q2HR PRN Dry Lips Fentanyl Citrate 2,000 mcg in 100 mls @ 2.5 mls/hr 05/31/19 09:00 05/31/19 13:04 Fentanyl Drip Premix IV 0 mcg/kg/hr TITR FRANCISCO JAVIER 0 mls/hr Titration Protocol 1 MCG/KG/HR Norepinephrine 4 mg in 250 mls @ 7.5 mls/hr 05/31/19 09:00 06/01/19 06:03 Levophed Drip 4 Mg/Ns 250 Ml IV 8 mcg/min TITR FRANCISCO JAVIER 30 mls/hr Administration Protocol 2 MCG/MIN Cefepime HCl 2 gm in 100 mls @ 200 mls/hr 05/31/19 22:00 06/01/19 05:26 Maxipime/Ns 2 Gm/100 Ml IV 200 mls/hr Q8HR FRANCISCO JAVIER Administration Protocol Vancomycin HCl 750 mg/ Sodium 265 mls @ 166.667 mls/hr 06/02/19 10:00 Chloride IV Q24HR FRANCISCO JAVIER Multi-Ingred Cream/Lotion/Oil/Oint 1 applic 05/31/19 13:17 Artificial Tears Ophth Oint OU Q4HR PRN Dry Eye(s) Simple Syrup 15 ml 05/31/19 14:31 Simple Syrup FEEDTUBE PRN PRN Hypoglycemia Simple Syrup 30 ml 05/31/19 14:31 Simple Syrup FEEDTUBE PRN PRN Hypoglycemia Sodium Bicarbonate 325 mg 05/31/19 14:31 Sodium Bicarbonate FEEDTUBE PRN PRN For Clogged Feeding Tube Nutrition/Malnutrition Assess - Dietary Evaluation Nutrition/Malnutrition Findings: Nutrition Notes Start: 05/31/19 13:59 Freq: Status: Active Protocol: Document 05/31/19 13:59 LM (Rec: 05/31/19 14:20 LM [id number]) Nutrition Notes Need for Assessment generated from: MD Order Initial or Follow up Assessment Current Diagnosis COPD,Heart Failure Other Pertinent Diagnosis Lung ca, pneumonia, sepsis Current Diet No diet Labs/Tests Reviewed Pertinent Medications Reviewed Height 5 ft 7 in Weight 50 kg [place] Body Weight (kg) 67.27 BMI 17.2 Weight Status Underweight Subjective/Other Information MD consult for TF and skin risk. No pat score in chart . Pt on vent at time of visit. #1 Nutrition Diagnosis Inadequate oral intake Etiology Mechanical vent As Evidenced by Signs and Symptoms Pt NPO Is patient on ventilator? Yes Is Patient Ambulatory and/or Out of Bed No REE-(Firth-St. Jeor-confined to bed) 1492.092 Kcal/Kg value to use for calculation 40 Approximate Energy Requirements Using 2000 kcal/Kg Calculation Used for Recommendations Kcal/kg Additional Notes Protein: 60-100g (1.2-2g/kg) Fluids: 1 ml/kcal Nutrition Intervention Change Diet Order: TF Nutrition Support: Jevity 1.2 at 70 ml/hr Flush 200 ml q4hr Kcal 2,016 Protein (gm) 93 Fluid (mL) 1,356 Goal #1 TF start Goal #2 Meet at least 80% of energy and protein needs Anticipated Discharge Needs: unable to determine at this time Follow-Up By: 06/01/19 Additional Comments F/U for TF start/tolerance
--- NOTE | 2019-06-01 08:02 | Event Note ---
Date: 06/01/19 [id number]
[2019-06-01] MEDS ORDERED: PANCREAZE DR 10,500 UNIT FEEDTUBE PRN (08:33)
[2019-06-01] MEDS ORDERED: SIMPLE SYRUP FEEDTUBE PRN ×2 (08:33)
[2019-06-01] MEDS ORDERED: SODIUM BICARBONATE FEEDTUBE PRN (08:33)
--- NOTE | 2019-06-01 09:37 | Progress Note ---
Assessment and Plan Acute on chronic hypoxic respiratory due to terminal lung cancer s/p ETT on admission and self extubation on 06/01/19: Cardiac arrest resolved Septic shock,with shock resolved Acute diastolic heart failure, Cor pulmonale Severe pulmonary hypertension Sepsis from post-obstructive Pneumonia Acute metabolic encephalopathy, poa Postobstructive Pneumonia NSCLC Severe malnutrition -Continue supplemental oxygen to keep O2 sats>90% -Nocturnal NIPPV support, and prn during the day for work of breathing -Wean vasopressor support fro MAP>65 -Stress ulcer prophylaxis -Accuchecks with glycemic control -VTE prophylaxis -Antibiotics per ID -Bronchodilators -OK to feed him -PT/OT to evaluate and treat -Pain management and supportive care From his last admission he was DNR and hospice care Will get case management involved and hospice Subjective Date of service: 06/01/19 Interval history: Patient is seen today for: acute and chronic respiratory failure, s/p self- extubation; NSCLC; Right lung hemiopacification; Left lung new infiltrate Seen and examined at bedside; 24hour events reviewed; nursing and respiratory care staff consulted; no adverse overnight events reported to me; Vitals, labs, medications, chart and imaging reviewed. Wants to eat, still has some tacypnea. Denies any chest pain at this time. No fevers, no chills. On epinephrine at 4mcg at this time Objective - Exam Narrative Exam: Gen: thin frail, chronically ill appearing, in mild respiratory distress HEENT: NCAT, Tachypnic Neck: supple, no adenopathy, no thyromegaly, no JVD CVS/Heart: Tachycardia, normal S1S2, pulses present bilaterally Chest/Lungs: bilateral diminished bs but severely reduced right BS GI/Abdomen: soft, NTND, good bowel sounds, no guarding or rebound /Bladder: no suprapubic tenderness Extermity/Skin: multiple tattoos on chest and upper extremities MSK: moving all extremities Neuro: following commands Psych: anxious Vital Signs - 12hr 05/31/19 05/31/19 06/01/19 23:48 23:57 00:00 Temperature 97.8 F Pulse Rate 108 H Pulse Rate [ 111 H From Monitor] Respiratory 20 Rate Blood Pressure 80/53 O2 Sat by Pulse 98 98 Oximetry 06/01/19 06/01/19 06/01/19 00:17 03:38 04:00 Temperature 97.6 F 97.6 F Pulse Rate 98 H 101 H Pulse Rate [ From Monitor] Respiratory Rate Blood Pressure O2 Sat by Pulse Oximetry 06/01/19 06/01/19 06/01/19 04:55 07:06 08:00 Temperature 98.0 F Pulse Rate 99 H 104 H Pulse Rate [ From Monitor] Respiratory Rate Blood Pressure 102/69 107/76 O2 Sat by Pulse 98 98 Oximetry 06/01/19 08:56 Temperature Pulse Rate Pulse Rate [ From Monitor] Respiratory Rate Blood Pressure O2 Sat by Pulse 94 Oximetry CBC and BMP: 06/02/19 06:03 06/02/19 06:03 ABG, PT/INR, D-dimer: ABG POC ABG pH 7.327 (7.35-7.45) L 05/31/19 16:27 ABG pH 7.367 pH Units (7.350-7.450) 06/01/19 04:27 POC ABG pCO2 64.0 (35-45) H 05/31/19 16:27 ABG pCO2 50.8 mm Hg 06/01/19 04:27 POC ABG pO2 67 (80-105) L 05/31/19 16:27 ABG pO2 114.4 mm Hg (80.0-90.0) H 06/01/19 04:27 POC ABG HCO3 33.5 (22-26 mml/L) 05/31/19 16:27 POC ABG Total CO2 35 (23-27mmol/L) 05/31/19 16:27 POC ABG O2 Sat 91 05/31/19 16:27 ABG O2 Saturation 98.0 % (95.0-99.0) 06/01/19 04:27 Abnormal lab findings: Abnormal Labs 05/31/19 05/31/19 05/31/19 09:24 09:24 09:46 WBC 28.5 H RBC 3.46 L Hgb 10.4 L Hct 31.6 L RDW 19.9 H Plt Count Seg Neuts % (Manual) 93.0 H Lymphocytes % (Manual) 4.0 L Seg Neutrophils # Man 26.5 H Lymphocytes # (Manual) 1.1 L POC ABG pH POC ABG pCO2 POC ABG pO2 ABG pO2 ABG HCO3 ABG Hemoglobin Sodium Chloride 94.9 L Carbon Dioxide 37 H BUN Creatinine 0.3 L Glucose POC Glucose Calcium 8.2 L Alkaline Phosphatase 151 H Total Protein 5.3 L Albumin 2.4 L Urine pH 8.0 H 05/31/19 05/31/19 05/31/19 09:59 12:25 16:27 WBC RBC Hgb Hct RDW Plt Count Seg Neuts % (Manual) Lymphocytes % (Manual) Seg Neutrophils # Man Lymphocytes # (Manual) POC ABG pH 7.249 L 7.296 L 7.327 L POC ABG pCO2 64.0 H POC ABG pO2 373 H 67 L ABG pO2 ABG HCO3 ABG Hemoglobin Sodium Chloride Carbon Dioxide BUN Creatinine Glucose POC Glucose Calcium Alkaline Phosphatase Total Protein Albumin Urine pH 05/31/19 06/01/19 06/01/19 18:12 04:27 05:40 WBC 16.4 H RBC 2.94 L Hgb 8.7 L Hct 27.6 L RDW 20.8 H Plt Count 116 L Seg Neuts % (Manual) Lymphocytes % (Manual) Seg Neutrophils # Man Lymphocytes # (Manual) POC ABG pH POC ABG pCO2 POC ABG pO2 ABG pO2 114.4 H ABG HCO3 28.5 H ABG Hemoglobin 9.6 L Sodium Chloride Carbon Dioxide BUN Creatinine Glucose POC Glucose 129 H Calcium Alkaline Phosphatase Total Protein Albumin Urine pH 06/01/19 05:40 WBC RBC Hgb Hct RDW Plt Count Seg Neuts % (Manual) Lymphocytes % (Manual) Seg Neutrophils # Man Lymphocytes # (Manual) POC ABG pH POC ABG pCO2 POC ABG pO2 ABG pO2 ABG HCO3 ABG Hemoglobin Sodium 147 H Chloride 110.6 H Carbon Dioxide BUN 23 H Creatinine 0.3 L Glucose 112 H POC Glucose Calcium 7.0 L Alkaline Phosphatase Total Protein Albumin Urine pH Chest x-ray: image reviewed (05/31 CXR: R opacification. New L interstitial infiltrate)
[2019-06-01] MEDS: HEPARIN SUB-Q SCH ×2 (10:00→21:50)
[2019-06-01] MEDS: PEPCID PO SCH ×2 (10:00→21:50)
[2019-06-01] MEDS: DUONEB *Not for PRN Use IH SCH ×3 (10:10→19:00)
[2019-06-01] MEDS: PULMICORT IH SCH ×2 (10:10→19:00)
--- NOTE | 2019-06-01 13:15 | Progress Note ---
Assessment and Plan Cultures: 05/31 BCx: A/P: 68 yo M PMhx COPD, chronic respiratory failure, NSCLC, history of TB, severe malnutrition, Hx of HAP admitted with respiratory failure 1. Septic shock secondary to pneumonia - Leukocytosis, tachycardia, tachypneic requiring pressors. New infiltrate seen on CXR. Has severe baseline lung disease and is thus at high risk for infections. Agree with cefepime and vancomycin for now, please obtain sputum cultures. His cancer was diagnosed in March and he was ruled out for TB at that time. Infiltrates resolved. Symptoms possibly attributa ble to reactive changes from resuscitation. 2. Remote history of latent TB - [facility]. 3. Chronic respiratory failure 4. NSCLC - s/p radiation therapy 5. COPD 6. Severe malnutrition Recs: - Continue cefepime to 2g q8h. Short course expected. - stop vancomycin - follow up blood cultures - follow up sputum cultures. - Correction outlook: poor Thank you for the consult, we will continue to follow. Alijca García MD [facility] ([facility]) M: [phone] O: [phone] F: [phone] Subjective Date of service: 06/01/19 Interval history: Now extubated. No acute concerns. Objective - Exam Narrative Exam: Physical Exam: Constitutional: Extubated, cachectic. Head, Ears, Nose: Normocephalic, atraumatic. External ears, nose normal Eyes: Conjunctivae/corneas clear. No icterus. No ptosis. Neck: Supple, no meningeal signs Oral: dentition poor, no thrush Cardiovascular: S1, S2 normal. Respiratory: Absent breath sounds on R. GI: Soft, non-tender; bowel sounds normal. No peritoneal signs. Musculoskeletal: No pedal edema, no cyanosis. Skin: No rash or abscess Hem/Lymphatic: No palpable cervical or supraclavicular nodes. No lymphangitis Neurological: No focal defecits - Constitutional Vitals: Vital Signs Temp Pulse Resp BP Pulse Ox 97.9 F 117 H 26 H 107/76 98 06/01/19 12:00 06/01/19 12:00 06/01/19 12:00 06/01/19 07:06 06/01/19 12:00 Temperature -Last 24 Hours Temperature 97.9 F Temperature 98.0 F Temperature 97.6 F Temperature 97.6 F Temperature 97.8 F Temperature 97.2 F Temperature 97.8 F - Labs CBC & Chem 7: 06/01/19 05:40 06/01/19 05:40 Labs: Abnormal lab results 05/31/19 05/31/19 06/01/19 Range/Units 16:27 18:12 04:27 WBC (4.5-11.0) K/mm3 RBC (3.65-5.03) M/mm3 Hgb (11.8-15.2) gm/dl Hct (35.5-45.6) % RDW (13.2-15.2) % Plt Count (140-440) K/mm3 POC ABG pH 7.327 L (7.35-7.45) POC ABG pCO2 64.0 H (35-45) POC ABG pO2 67 L (80-105) ABG pO2 114.4 H (80.0-90.0) mm Hg ABG HCO3 28.5 H (20.0-26.0) mmol/L ABG Hemoglobin 9.6 L (14.0-18.0) gm/dl Sodium (137-145) mmol/L Chloride (98-107) mmol/L BUN (9-20) mg/dL Creatinine (0.8-1.5) mg/dL Glucose (75-100) mg/dL POC Glucose 129 H (70-105) Calcium (8.4-10.2) mg/dL 06/01/19 06/01/19 06/01/19 Range/Units 05:40 05:40 12:23 WBC 16.4 H (4.5-11.0) K/mm3 RBC 2.94 L (3.65-5.03) M/mm3 Hgb 8.7 L (11.8-15.2) gm/dl Hct 27.6 L (35.5-45.6) % RDW 20.8 H (13.2-15.2) % Plt Count 116 L (140-440) K/mm3 POC ABG pH (7.35-7.45) POC ABG pCO2 (35-45) POC ABG pO2 (80-105) ABG pO2 (80.0-90.0) mm Hg ABG HCO3 (20.0-26.0) mmol/L ABG Hemoglobin (14.0-18.0) gm/dl Sodium 147 H (137-145) mmol/L Chloride 110.6 H (98-107) mmol/L BUN 23 H (9-20) mg/dL Creatinine 0.3 L (0.8-1.5) mg/dL Glucose 112 H (75-100) mg/dL POC Glucose 161 H (70-105) Calcium 7.0 L (8.4-10.2) mg/dL
[2019-06-02] MEDS: DUONEB *Not for PRN Use IH SCH ×5 (01:35→19:19)
--- NOTE | 2019-06-02 02:40 | XRay Report ---
CHEST 1 VIEW INDICATION: follow up respiratory failure. COMPARISON: Previous day. FINDINGS: Support devices: Removal of the endotracheal tube and NG tube. Heart: Within normal limits. Lungs/Pleura: Complete opacification remains at the right chest. Mild increasing interstitial marking s at the left chest. Additional findings: None. IMPRESSION: 1. Removal of the endotracheal tube and NG tube. 2. Persistent opacification right chest. 3. Suspect mild vascular congestion/edema on the left. Signer Name: Anand Hernandez MD Signed: 06/02/2019 2:36 AM Workstation Name: [id number]
[2019-06-02] MEDS: MAXIPIME/NS 2 GM/100 ML 2 GM/100 ML BAG IV SCH ×3 (06:07→21:41)
[2019-06-02 06:15] LABS: Hematocrit 31.3 % (35.5-45.6); Hemoglobin 10.3 gm/dl (11.8-15.2); Mean Corpuscular HGB Conc 33 % (32-34); Mean Corpuscular Volume 93 fl (84-94); Platelet Count 115 K/mm3 (140-440); Red Blood Count 3.37 M/mm3 (3.65-5.03)
[2019-06-02 06:17] LABS: Red Cell Distribution Width 20.4 % (13.2-15.2)
[2019-06-02 06:39] LABS: BUN/Creatinine Ratio 60; Blood Urea Nitrogen 24 mg/dL (9-20); Calcium 8.5 mg/dL (8.4-10.2); Hemolysis Index 9
--- NOTE | 2019-06-02 07:16 | Hem/Onc Progress Note ---
Assessment and Plan 1. Advanced non-small cell lung cancer. 2. Chronic obstructive pulmonary disease. 3. Respiratory failure. 4. History of tuberculosis in the past. 5. Malnutrition. 6. h/o Mild thrombocytopenia. 7. h/o Mild anemia. 8. was Intubated. 9. The patient was in hospice. This was removed. 10. The patient has had radiation therapy by Dr. Goodrich. 11. The patient had thoracentesis in the past. The patient's performance status is not very good. Prognosis is very poor. I have never been able to speak to any family members. The question is, if he is hospice appropriate or if something can be done for him. He has not been able to keep up his outpatient appointment due to insurance issues. - Patient Problems (1) Lung malignancy Current Visit: No Status: Acute Qualifiers: Laterality: right Lung location: overlapping sites Qualified Code(s): C34.81 - Malignant neoplasm of overlapping sites of right bronchus and lung Subjective Date of service: 06/02/19 Principal diagnosis: lung ca Interval history: self extubated Objective - Exam Narrative Exam: Pain - not evaluable - pt very SOB - on o2 General appearance SOB Performance status complete dependent Eyes - no icterus ENT - no bleeding LNs cervical not palpable Neck - no LN Respiratory Normal Breath sounds -decreased CVS S1 S2 + Extremities no edema General GI Soft Rectal deferred male - deferred Skin warm Musculoskeletal moving extremitites Neurologically awake - Constitutional Vitals: Last Vital Signs Temp 98.8 F 06/02/19 03:26 Pulse 101 H 06/02/19 04:00 Resp 32 H 06/02/19 04:00 BP 131/94 06/01/19 20:00 Pulse Ox 100 06/02/19 04:00 - Labs Lab Results: Laboratory Results - last 24 hr 06/01/19 06/02/19 06/02/19 12:23 06:03 06:03 WBC 18.6 H RBC 3.37 L Hgb 10.3 L Hct 31.3 L MCV 93 MCH 31 MCHC 33 RDW 20.4 H Plt Count 115 L Sodium 138 D Potassium 4.5 Chloride 98.0 Carbon Dioxide 32 H Anion Gap 13 BUN 24 H Creatinine 0.4 L Estimated GFR > 60 BUN/Creatinine Ratio 60 Glucose 123 H POC Glucose 161 H Calcium 8.5 D Medications & Allergies - Medications Allergies/Adverse Reactions: Allergies No Known Allergies Allergy (Verified 05/12/19 17:25) Home Medications: Home Medications Medication Instructions Recorded Confirmed Last Taken Type RX: Folic Acid [Folvite] 1 mg PO QDAY #30 tablet 04/17/19 06/01/19 05/24/19 Rx RX: Furosemide [Lasix TAB] 20 mg PO QDAY #30 tablet 04/17/19 05/31/19 05/24/19 Rx RX: Temazepam [Restoril] 15 mg PO QHS PRN #7 capsule 04/17/19 05/31/19 05/23/19 Rx RX: Thiamine [Vitamin B-1] 100 mg PO QDAY #30 tablet 04/17/19 06/01/19 05/24/19 Rx RX: ALBUTEROL Inhaler (OR & NICU) 2 puff IH QID PRN 30 Days #1 pump 05/28/19 06/01/19 Unknown Rx [ProAir HFA Inhaler] RX: Ipratropium/Albuterol Sulfate 1 ampul IH Q6HRT #120 ampul.neb 05/28/19 05/31/19 Unknown Rx [DUONEB *Not for PRN Use*] RX: Prednisone [predniSONE 10 mg 10 mg PO .TAPER #1 tab.ds.pk 05/28/19 06/01/19 Unknown Rx (6-Day Pack, 21 Tabs)] RX: oxyCODONE /ACETAMINOPHEN 1 tab PO Q6H PRN #14 tablet 05/28/19 05/31/19 Unknown Rx [Percocet 5/325 mg] Fluconazole [Diflucan TAB] 150 mg PO PRN PRN 05/31/19 05/31/19 Unknown History LORazepam [Ativan] 0.5 mg PO Q6H PRN 05/31/19 05/31/19 Unknown History RX: Docusate Sodium [Colace CAP] 1 cap PO PRN PRN 05/31/19 05/31/19 Unknown History Active Medications: Generic Name Dose Route Start Last Admin Trade Name Freq PRN Reason Stop Dose Admin Albuterol/Ipratropium 1 ampul 06/01/19 09:45 06/02/19 01:35 Duoneb *Not For Prn Use* IH 1 ampul Q6HRT FRANCISCO JAVIER Administration Budesonide 0.5 mg 06/01/19 09:45 06/01/19 19:00 Pulmicort IH 0.5 mg Q12HRT FRANCISCO JAVIER Administration Famotidine 20 mg 06/01/19 10:00 06/01/19 21:50 Pepcid PO 20 mg BID FRANCISCO JAVIER Administration Heparin Sodium (Porcine) 5,000 unit 05/31/19 22:00 06/01/19 21:50 Heparin SUB-Q 5,000 unit Q12HR FRANCISCO JAVIER Administration Hydrophilic Ointment 1 applic 05/31/19 13:17 Vaseline Lip Therapy TP Q2HR PRN Dry Lips Norepinephrine 4 mg in 250 mls @ 7.5 mls/hr 05/31/19 09:00 06/01/19 09:00 Levophed Drip 4 Mg/Ns 250 Ml IV 0 mcg/min TITR FRANCISCO JAVIER 0 mls/hr Titration Protocol 2 MCG/MIN Cefepime HCl 2 gm in 100 mls @ 200 mls/hr 05/31/19 22:00 06/02/19 06:07 Maxipime/Ns 2 Gm/100 Ml IV 200 mls/hr Q8HR FRANCISCO JAVIER Administration Protocol Multi-Ingred Cream/Lotion/Oil/Oint 1 applic 05/31/19 13:17 Artificial Tears Ophth Oint OU Q4HR PRN Dry Eye(s)
[2019-06-02] MEDS: PULMICORT IH SCH ×2 (07:32→19:19)
--- NOTE | 2019-06-02 09:08 | Consultation ---
REFERRING PHYSICIAN: Dr. Boucher. REASON FOR CONSULTATION: Non-small cell lung cancer, advanced. HISTORY OF PRESENT ILLNESS: I saw the patient, a 68-year-old male in the medical floor. The patient was found to have lung cancer a few months ago. The patient was seen in the hospital, and there was a plan for evaluation in the clinic. He did not come to the clinic. Later, he was admitted multiple times. Recently, he was admitted and discharged to hospice. He was brought back to the hospital because he was short of breath. Hospice was removed. The patient ____ treatment. The patient had had radiation treatment by Dr. Goodrich. He has had thoracentesis at one time. After he was brought to the hospital, at this time, he is intubated. He is alert, intubated. He is communicating by writing, still short of breath. REVIEW OF SYSTEMS: Not reliable because of patient's status. PAST MEDICAL HISTORY: As above. ALLERGIES: None. PHYSICAL EXAMINATION: GENERAL: Intubated. VITAL SIGNS: Temperature 98, pulse 107, respirations 15, BP 131/94. HEENT: Pallor present, no icterus, intubated. NECK: No neck lymph nodes. LUNGS: Decreased air entry in the lungs. HEART: S1, S2. ABDOMEN: Soft. NEUROLOGIC: Awake. Tries to communicate by writing. LABORATORY DATA: White cells 16, hemoglobin 8.7, MCV 94, platelet 116. Potassium 3.8, creatinine 0.3, and calcium 7. RADIOLOGY: Chest x-ray was done. ASSESSMENT AND PLAN: 1. Advanced non-small cell lung cancer. 2. Chronic obstructive pulmonary disease. 3. Respiratory failure. 4. History of tuberculosis in the past. 5. Malnutrition. 6. Mild thrombocytopenia. 7. Mild anemia. 8. Intubated. 9. The patient was in hospice. This was removed. 10. The patient has had radiation therapy by Dr. Goodrich. 11. The patient had thoracentesis in the past. The patient's performance status is not very good. Prognosis is very poor. I have never been able to speak to any family members. The question is, if he is hospice appropriate or if something can be done for him. He has not been able to keep up his outpatient appointment due to insurance issues. JOB# [id number] ASHLEE/MAHENDRA
[2019-06-02] MEDS ORDERED: VANCOMYCIN 750 MG in NACL 0.9% 250ML 250 ML IV SCH (10:00)
--- NOTE | 2019-06-02 10:36 | Progress Note ---
Assessment and Plan Assessment and plan: Patient is a 68 yo man with a plethora of severe End-Stage co-morbidities including chronic respiratory failure, severe malnutrition, HAP, right sided NSCLC with complete opacification and trachea deviation of the right lung s/p [address] Garcia, tobacco dependency and prior TB s/p treatment who presented to [facility] ED for his 4th admission this month with extremely respiratory distress, SOB associated with the terminal Lung Cancer. He was just discharged from here on 05/29/19 into home hospice with DNR status that was changed to full code while in [facility] per ED physician. EMS was bagging him into the ED; therefore, he required Intubation. About 15 minutes after Intubation, patient had a cardiac arrest with successful resuscitation after 1 round of Epi and chest compression. He was hypotensive; therefore, central line placed in the femoral artery and Norepinephrine drip was started. Patient self-extubated on 06/01/19, still very confused, in restraints. He is on VM, maintaining his oxygenation. The Femoral line was removed on 06/01/19 when vasopressors weaned off, the varner was removed on 06/01/19 and he has a condom catheter on. He passed the swallow screen and is on a regular diet. Currently today he is yelling out "I am dying" and "I don't want to live because I have cancer." * 2D ECHO limited views: The left chamber size is normal, mild concentric LVH, global left ventricular systolic function is at the lower limit of normal, the estimated eF is 45-50%, there is trace MR, the right heart chambers are both at least moderately dilated, there is at least mild TR, there is evidence of severe pulmonary hypertension, the RVSP is calculated at 65 mmHg, right heart findings suggest cor pulmonale. Acute on chronic hypoxic respiratory due to terminal lung cancer s/p ETT on admission and self extubation on 06/01/19: on VM currently, still in distress Cardiac arrest resolved Septic shock,with shock resolved Acute diastolic heart failure, Cor pulmonale: Medical management Severe pulmonary hypertension: Pulmonology following Sepsis from post-obstructive Pneumonia: continue ABX, ID following Acute metabolic encephalopathy, poa Postobstructive Pneumonia: consulted ID and Pulmonology, treat with abx NSCLC: consulted Heme/Onc Suspected severe malnutrition: consult Decaler DVT/GI ppx reviewed full code * Jolynn Diehl [phone] (landline) or [phone] (not working anymore)==> patient wanted me to call Jolynn who he stated is his ex-girlfriend; her corrected number is [phone] and I spoke with her. She confirmed that he was DNR and she doesn't know who changed to full code. She doesn't know who made him DNR, she thinks he did. * Sushil, Brother and Willam Rubio is his roommate * Keeley, neighbor [phone] poor prognosis CCT 35 minutes History Interval history: Patient was seen and examined. Follow-up on current diagnosis of Respiratory failure. No overnight events reported to me. Imaging, nursing note, chart, labs and old chart reviewed. Hospitalist Physical - Physical exam Narrative exam: Gen: thin frail, BMI 17, chronically ill appearing, moderate bs bilateral HEENT: NCAT, ETT in place,sunken scientologist muscles, Neck: supple, no adenopathy, no thyromegaly, no JVD CVS/Heart: Regular tachycardia, normal S1S2, pulses present bilaterally Chest/Lungs: bilateral diminished bs but severely reduced right BS, Symmetrical chest expansion, good air entry bilaterally on MV GI/Abdomen: soft, NTND, good bowel sounds, no guarding or rebound /Bladder: no suprapubic tenderness, no CVA or paraspinal tenderness Extermity/Skin: multiple tattoos on chest and left, muscle wasting hypotenar muscles MSK: moving all extremities Neuro: not following commands Psych: anxious - Constitutional Vitals: Temp Pulse Resp BP Pulse Ox 98.8 F 110 H 35 H 131/94 100 06/02/19 03:26 06/02/19 08:00 06/02/19 08:00 06/01/19 20:00 06/02/19 08:00 Results - Labs CBC & Chem 7: 06/02/19 06:03 06/02/19 06:03 Labs: Laboratory Last Values WBC 18.6 K/mm3 (4.5-11.0) H 06/02/19 06:03 RBC 3.37 M/mm3 (3.65-5.03) L 06/02/19 06:03 Hgb 10.3 gm/dl (11.8-15.2) L 06/02/19 06:03 Hct 31.3 % (35.5-45.6) L 06/02/19 06:03 MCV 93 fl (84-94) 06/02/19 06:03 MCH 31 pg (28-32) 06/02/19 06:03 MCHC 33 % (32-34) 06/02/19 06:03 RDW 20.4 % (13.2-15.2) H 06/02/19 06:03 Plt Count 115 K/mm3 (140-440) L 06/02/19 06:03 Add Manual Diff Complete 05/31/19 09:24 Total Counted 100 05/31/19 09:24 Seg Neutrophils % Inker Machine 05/31/19 09:24 Seg Neuts % (Manual) 93.0 % (40.0-70.0) H 05/31/19 09:24 0 % 05/31/19 09:24 4.0 % (13.4-35.0) L 05/31/19 09:24 Reactive Lymphs % (Man) 0 % 05/31/19 09:24 2.0 % (0.0-7.3) 05/31/19 09:24 1.0 % (0.0-4.3) 05/31/19 09:24 0 % (0.0-1.8) 05/31/19 09:24 0 % 05/31/19 09:24 0 % 05/31/19 09:24 0 % 05/31/19 09:24 0 % 05/31/19 09:24 Nucleated RBC % Not Reportable 05/31/19 09:24 Seg Neutrophils # Man 26.5 K/mm3 (1.8-7.7) H 05/31/19 09:24 Band Neutrophils # 0.0 K/mm3 05/31/19 09:24 1.1 K/mm3 (1.2-5.4) L 05/31/19 09:24 Abs React Lymphs (Man) 0.0 K/mm3 05/31/19 09:24 0.6 K/mm3 (0.0-0.8) 05/31/19 09:24 0.3 K/mm3 (0.0-0.4) 05/31/19 09:24 0.0 K/mm3 (0.0-0.1) 05/31/19 09:24 0.0 K/mm3 05/31/19 09:24 0.0 K/mm3 05/31/19 09:24 0.0 K/mm3 05/31/19 09:24 Blast Cells # 0.0 K/mm3 05/31/19 09:24 WBC Morphology Not Reportable 05/31/19 09:24 Hypersegmented Neuts Not Reportable 05/31/19 09:24 Hyposegmented Neuts Not Reportable 05/31/19 09:24 Hypogranular Neuts Not Reportable 05/31/19 09:24 Not Reportable 05/31/19 09:24 Not Reportable 05/31/19 09:24 Not Reportable 05/31/19 09:24 Not Reportable 05/31/19 09:24 Not Reportable 05/31/19 09:24 Not Reportable 05/31/19 09:24 Consistent w auto 05/31/19 09:24 Not Reportable 05/31/19 09:24 Plt Clumps, EDTA Not Reportable 05/31/19 09:24 Not Reportable 05/31/19 09:24 Not Reportable 05/31/19 09:24 Not Reportable 05/31/19 09:24 Plt Morphology Comment Not Reportable 05/31/19 09:24 RBC Morphology Not Reportable 05/31/19 09:24 Dimorphic RBCs Not Reportable 05/31/19 09:24 Not Reportable 05/31/19 09:24 Not Reportable 05/31/19 09:24 Not Reportable 05/31/19 09:24 1+ 05/31/19 09:24 Rare 05/31/19 09:24 Not Reportable 05/31/19 09:24 Not Reportable 05/31/19 09:24 Not Reportable 05/31/19 09:24 Not Reportable 05/31/19 09:24 Rare 05/31/19 09:24 Not Reportable 05/31/19 09:24 Not Reportable 05/31/19 09:24 Not Reportable 05/31/19 09:24 Not Reportable 05/31/19 09:24 Not Reportable 05/31/19 09:24 Not Reportable 05/31/19 09:24 Not Reportable 05/31/19 09:24 Not Reportable 05/31/19 09:24 Not Reportable 05/31/19 09:24 Acanthocytes (Spur) Not Reportable 05/31/19 09:24 Rouleaux Not Reportable 05/31/19 09:24 Not Reportable 05/31/19 09:24 Not Reportable 05/31/19 09:24 Not Reportable 05/31/19 09:24 Not Reportable 05/31/19 09:24 Hem Pathologist Commnt No 05/31/19 09:24 POC ABG pH 7.327 (7.35-7.45) L 05/31/19 16:27 ABG pH 7.367 pH Units (7.350-7.450) 06/01/19 04:27 POC ABG pCO2 64.0 (35-45) H 05/31/19 16:27 ABG pCO2 50.8 mm Hg 06/01/19 04:27 POC ABG pO2 67 (80-105) L 05/31/19 16:27 ABG pO2 114.4 mm Hg (80.0-90.0) H 06/01/19 04:27 POC ABG HCO3 33.5 (22-26 mml/L) 05/31/19 16:27 ABG HCO3 28.5 mmol/L (20.0-26.0) H 06/01/19 04:27 POC ABG Total CO2 35 (23-27mmol/L) 05/31/19 16:27 POC ABG O2 Sat 91 05/31/19 16:27 ABG O2 Saturation 98.0 % (95.0-99.0) 06/01/19 04:27 ABG O2 Content 13.1 (0.0-44) 06/01/19 04:27 POC ABG Base Excess 8 ((-2) - (+3)mmol/L) 05/31/19 16:27 ABG Base Excess 2.6 mmol/L (-2.0-3.0) 06/01/19 04:27 ABG Hemoglobin 9.6 gm/dl (14.0-18.0) L 06/01/19 04:27 ABG Carboxyhemoglobin 1.9 % (0.0-5.0) 06/01/19 04:27 ABG Methemoglobin 0.5 % (0.0-1.5) 06/01/19 04:27 95.6 % (95.0-99.0) 06/01/19 04:27 40 % 06/01/19 04:27 Sodium 138 mmol/L (137-145) D 06/02/19 06:03 Potassium 4.5 mmol/L (3.6-5.0) 06/02/19 06:03 Chloride 98.0 mmol/L (98-107) 06/02/19 06:03 Carbon Dioxide 32 mmol/L (22-30) H 06/02/19 06:03 13 mmol/L 06/02/19 06:03 BUN 24 mg/dL (9-20) H 06/02/19 06:03 0.4 mg/dL (0.8-1.5) L 06/02/19 06:03 Estimated GFR > 60 ml/min 06/02/19 06:03 60 % 06/02/19 06:03 Glucose 123 mg/dL (75-100) H 06/02/19 06:03 POC Glucose 161 (70-105) H 06/01/19 12:23 Calcium 8.5 mg/dL (8.4-10.2) D 06/02/19 06:03 1.00 mg/dL (0.1-1.2) 05/31/19 09:24 AST 22 units/L (5-40) 05/31/19 09:24 ALT 41 units/L (7-56) 05/31/19 09:24 151 units/L (35-129) H 05/31/19 09:24 0.021 ng/mL (0.00-0.029) 05/31/19 09:24 5.3 g/dL (6.3-8.2) L 05/31/19 09:24 2.4 g/dL (3.9-5) L 05/31/19 09:24 0.8 % 05/31/19 09:24 Straw (Yellow) 05/31/19 09:46 Slightly-cloudy (Clear) 05/31/19 09:46 8.0 (5.0-7.0) H 05/31/19 09:46 Ur Specific [place] 1.004 (1.003-1.030) 05/31/19 09:46 <15 mg/dl mg/dL (Negative) 05/31/19 09:46 Neg mg/dL (Negative) 05/31/19 09:46 Neg mg/dL (Negative) 05/31/19 09:46 Sm (Negative) 05/31/19 09:46 Neg (Negative) 05/31/19 09:46 Neg (Negative) 05/31/19 09:46 < 2.0 mg/dL (<2.0) 05/31/19 09:46 Ur Leukocyte Esterase Neg (Negative) 05/31/19 09:46 < 1.0 /HPF (0.0-6.0) 05/31/19 09:46 1.0 /HPF (0.0-6.0) 05/31/19 09:46 U Epithel Cells (Auto) 1.0 /HPF (0-13.0) 05/31/19 09:46 1+ /HPF (Negative) 05/31/19 09:46 Amorphous Crystals 1+ 05/31/19 09:46 Few /HPF 05/31/19 09:46 Active Medications - Current Medications Current Medications: Generic Name Dose Route Start Last Admin Trade Name Freq PRN Reason Stop Dose Admin Albuterol/Ipratropium 1 ampul 06/01/19 09:45 06/02/19 07:32 Duoneb *Not For Prn Use* IH 1 ampul Q6HRT FRANCISCO JAVIER Administration Budesonide 0.5 mg 06/01/19 09:45 06/02/19 07:32 Pulmicort IH 0.5 mg Q12HRT FRANCISCO JAVIER Administration Famotidine 20 mg 06/01/19 10:00 06/01/19 21:50 Pepcid PO 20 mg BID FRANCISCO JAVIER Administration Heparin Sodium (Porcine) 5,000 unit 05/31/19 22:00 06/01/19 21:50 Heparin SUB-Q 5,000 unit Q12HR FRANCISCO JAVIER Administration Hydrophilic Ointment 1 applic 05/31/19 13:17 Vaseline Lip Therapy TP Q2HR PRN Dry Lips Cefepime HCl 2 gm in 100 mls @ 200 mls/hr 05/31/19 22:00 06/02/19 06:07 Maxipime/Ns 2 Gm/100 Ml IV 200 mls/hr Q8HR FRANCISCO JAVIER Administration Protocol Multi-Ingred Cream/Lotion/Oil/Oint 1 applic 05/31/19 13:17 Artificial Tears Ophth Oint OU Q4HR PRN Dry Eye(s) Nutrition/Malnutrition Assess - Dietary Evaluation Nutrition/Malnutrition Findings: Nutrition Notes Start: 05/31/19 13:59 Freq: Status: Active Protocol: Document 06/01/19 10:34 LM (Rec: 06/01/19 10:51 LM [id number]) Nutrition Notes Initial or Follow up Reassessment Current Diagnosis COPD,Heart Failure Other Pertinent Diagnosis Lung ca, pneumonia, sepsis, sacral pressure ulcer Current Diet Jevity 1.2 at 70 ml/hr Labs/Tests BG 112 Na 147 BUN 23 Cr 0.3 Pertinent Medications Reviewed Height 5 ft 7 in Weight 50 kg [place] Body Weight (kg) 67.27 BMI 17.2 Subjective/Other Information TF running at 20 ml/hr at time of visit. Pt toerating TF. Percent of energy/protein needs met: 29%/44% Burn Absent Trauma Absent #2 Nutrition Diagnosis Increased nutrient needs ( specify in comment below) Comments: Protein Etiology wound healing As Evidenced by Signs and Symptoms sacral pressure ulcer #1 Nutrition Diagnosis Inadequate oral intake Diagnosis Progress(for reassessment Continues documentation) Is patient on ventilator? Yes Is Patient Ambulatory and/or Out of Bed No REE-([facility]-confined to bed) 1492.092 Kcal/Kg value to use for calculation 40 Approximate Energy Requirements Using 2000 kcal/Kg Calculation Used for Recommendations Kcal/kg Additional Notes Protein: 60-100g (1.2-2g/kg) Fluids: 1 ml/kcal Nutrition Intervention Change Diet Order: Continue TF Nutrition Support: Jevity 1.2 at 70 ml/hr Flush 200 ml q4hr or per MD Kcal 2,016 Protein (gm) 93 Fluid (mL) 1,356 Goal #1 Meet at least 80% of energy and protein needs Goal #2 TF tolerance Anticipated Discharge Needs: unable to determine at this time Follow-Up By: 06/05/19 Additional Comments F/U for TF start/tolerance
[2019-06-02] MEDS ORDERED: PERCOCET 5/325 PO ONE (11:24)
[2019-06-02] MEDS ORDERED: PERCOCET 5/325 ONE (11:26)
[2019-06-02] MEDS: HEPARIN SUB-Q SCH ×2 (11:30→21:45)
[2019-06-02] MEDS: PEPCID PO SCH ×2 (11:30→21:43)
--- NOTE | 2019-06-02 12:30 | Progress Note ---
Assessment and Plan Acute on chronic hypoxic respiratory due to terminal lung cancer s/p ETT on admission and self extubation on 06/01/19: Cardiac arrest resolved Septic shock,with shock resolved Acute diastolic heart failure, Cor pulmonale Severe pulmonary hypertension Sepsis from post-obstructive Pneumonia Acute metabolic encephalopathy, poa Postobstructive Pneumonia NSCLC Severe malnutrition -Continue supplemental oxygen to keep O2 sats>90% -Nocturnal NIPPV support, and prn during the day for work of breathing -Wean vasopressor support fro MAP>65 -Stress ulcer prophylaxis -Accuchecks with glycemic control -VTE prophylaxis -Antibiotics per ID -Bronchodilators -PT/OT to evaluate and treat -Pain management and supportive care From his last admission he was DNR and hospice care Will get case management involved and hospice Subjective Date of service: 06/02/19 Principal diagnosis: lung ca Interval history: Patient is seen today for: acute and chronic respiratory failure, s/p self-extub ation; NSCLC; Right lung hemiopacification; Left lung new infiltrate Seen and examined at bedside; 24hour events reviewed; nursing and respiratory care staff consulted; no adverse overnight events reported to me- had episodes of desaturations requiring more oxygen therapy. Apparenetly kept taking the BIPAP mask off; Vitals, labs, medications, chart and imaging reviewed. Wants something for pain; Mores short of breath this morning. Stating" I want to , I have cancer" Femoral line d/leyda yesterday, off vasopressors. Hong was d/leyda yesterady. Objective - Exam Narrative Exam: General appearance: Alert in moderate respiratory distress on 100% NRBM Chronically ill looking, cachexia with tattoos Eyes: anicteric sclerae, moist conjunctivae; no lid-lag; PERRLA HENT: Atraumatic; oropharynx limited Lungs:jen coarse BS on the left, diminished BS on the right CV: RRR no murmur Abdomen: Soft, non-tender; no masses or hepato-splenomegaly Extremities: no edema, no cyanosis Skin: No rash. Psych: no agitated Vital Signs - 12hr 06/02/19 06/02/19 06/02/19 02:04 03:26 04:00 Temperature 98.8 F Pulse Rate 101 H Pulse Rate [ 105 H Anterior Bilateral Throughout] Pulse Rate [ Bilateral Throughout] Pulse Rate [ 101 H From Monitor] Respiratory 32 H Rate Respiratory 19 Rate [Anterior Bilateral Throughout] Respiratory Rate [Bilateral Throughout] O2 Sat by Pulse 100 Oximetry 06/02/19 06/02/19 06/02/19 07:32 07:33 08:00 Temperature Pulse Rate 110 H Pulse Rate [ Anterior Bilateral Throughout] Pulse Rate [ 105 H Bilateral Throughout] Pulse Rate [ 110 H From Monitor] Respiratory 35 H Rate Respiratory Rate [Anterior Bilateral Throughout] Respiratory 26 H Rate [Bilateral Throughout] O2 Sat by Pulse 95 100 Oximetry CBC and BMP: 06/03/19 03:05 06/03/19 03:05 ABG, PT/INR, D-dimer: ABG POC ABG pH 7.327 (7.35-7.45) L 05/31/19 16:27 ABG pH 7.367 pH Units (7.350-7.450) 06/01/19 04:27 POC ABG pCO2 64.0 (35-45) H 05/31/19 16:27 ABG pCO2 50.8 mm Hg 06/01/19 04:27 POC ABG pO2 67 (80-105) L 05/31/19 16:27 ABG pO2 114.4 mm Hg (80.0-90.0) H 06/01/19 04:27 POC ABG HCO3 33.5 (22-26 mml/L) 05/31/19 16:27 POC ABG Total CO2 35 (23-27mmol/L) 05/31/19 16:27 POC ABG O2 Sat 91 05/31/19 16:27 ABG O2 Saturation 98.0 % (95.0-99.0) 06/01/19 04:27 Abnormal lab findings: Abnormal Labs 05/31/19 05/31/19 05/31/19 09:24 09:24 09:46 WBC 28.5 H RBC 3.46 L Hgb 10.4 L Hct 31.6 L RDW 19.9 H Plt Count Seg Neuts % (Manual) 93.0 H Lymphocytes % (Manual) 4.0 L Seg Neutrophils # Man 26.5 H Lymphocytes # (Manual) 1.1 L POC ABG pH POC ABG pCO2 POC ABG pO2 ABG pO2 ABG HCO3 ABG Hemoglobin Sodium Chloride 94.9 L Carbon Dioxide 37 H BUN Creatinine 0.3 L Glucose POC Glucose Calcium 8.2 L Alkaline Phosphatase 151 H Total Protein 5.3 L Albumin 2.4 L Urine pH 8.0 H 05/31/19 05/31/19 05/31/19 09:59 12:25 16:27 WBC RBC Hgb Hct RDW Plt Count Seg Neuts % (Manual) Lymphocytes % (Manual) Seg Neutrophils # Man Lymphocytes # (Manual) POC ABG pH 7.249 L 7.296 L 7.327 L POC ABG pCO2 64.0 H POC ABG pO2 373 H 67 L ABG pO2 ABG HCO3 ABG Hemoglobin Sodium Chloride Carbon Dioxide BUN Creatinine Glucose POC Glucose Calcium Alkaline Phosphatase Total Protein Albumin Urine pH 05/31/19 06/01/19 06/01/19 18:12 04:27 05:40 WBC 16.4 H RBC 2.94 L Hgb 8.7 L Hct 27.6 L RDW 20.8 H Plt Count 116 L Seg Neuts % (Manual) Lymphocytes % (Manual) Seg Neutrophils # Man Lymphocytes # (Manual) POC ABG pH POC ABG pCO2 POC ABG pO2 ABG pO2 114.4 H ABG HCO3 28.5 H ABG Hemoglobin 9.6 L Sodium Chloride Carbon Dioxide BUN Creatinine Glucose POC Glucose 129 H Calcium Alkaline Phosphatase Total Protein Albumin Urine pH 06/01/19 06/01/19 06/02/19 05:40 12:23 06:03 WBC 18.6 H RBC 3.37 L Hgb 10.3 L Hct 31.3 L RDW 20.4 H Plt Count 115 L Seg Neuts % (Manual) Lymphocytes % (Manual) Seg Neutrophils # Man Lymphocytes # (Manual) POC ABG pH POC ABG pCO2 POC ABG pO2 ABG pO2 ABG HCO3 ABG Hemoglobin Sodium 147 H Chloride 110.6 H Carbon Dioxide BUN 23 H Creatinine 0.3 L Glucose 112 H POC Glucose 161 H Calcium 7.0 L Alkaline Phosphatase Total Protein Albumin Urine pH 06/02/19 06:03 WBC RBC Hgb Hct RDW Plt Count Seg Neuts % (Manual) Lymphocytes % (Manual) Seg Neutrophils # Man Lymphocytes # (Manual) POC ABG pH POC ABG pCO2 POC ABG pO2 ABG pO2 ABG HCO3 ABG Hemoglobin Sodium Chloride Carbon Dioxide 32 H BUN 24 H Creatinine 0.4 L Glucose 123 H POC Glucose Calcium Alkaline Phosphatase Total Protein Albumin Urine pH
[2019-06-02] MEDS ORDERED: LASIX PO ONE (13:00)
--- NOTE | 2019-06-02 13:02 | Progress Note ---
Assessment and Plan Cultures: 05/31 BCx: NGTD 05/31 UCx: Negative 05/31 sputum Cx: Negative A/P: 68 yo M PMhx COPD, chronic respiratory failure, NSCLC, history of TB, severe malnutrition, Hx of HAP admitted with respiratory failure 1. Septic shock secondary to pneumonia - Leukocytosis, tachycardia, tachypneic requiring pressors. New infiltrate seen on CXR. Has severe baseline lung disease and is thus at high risk for infections. Breathing on venti-mask now, slightly confused. Would do 5 day course of cefepime for CAP. CXR improved. Resuscitation likely played a role, but given risk for post-obstructive pneumonia would complete the course. 2. Remote history of latent TB - [facility]. 3. Chronic respiratory failure 4. NSCLC - s/p radiation therapy 5. COPD 6. Severe malnutrition Recs: - Continue cefepime 2g q8h. Complete 5 days. Stop date: 06/04/19 - follow up blood cultures - follow up sputum cultures. - [facility] outlook: poor Thank you for the consult, we will continue to follow. Alicja García MD [facility] ([facility] M: [phone] O: [phone] F: [phone] Subjective Date of service: 06/02/19 Principal diagnosis: lung ca Interval history: On venti-mask after self-extubating. Restrained. Mildly confused. Objective - Exam Narrative Exam: Physical Exam: Constitutional: Venti-mask, cachectic. Head, Ears, Nose: Normocephalic, atraumatic. External ears, nose normal Eyes: Conjunctivae/corneas clear. No icterus. No ptosis. Neck: Supple, no meningeal signs Oral: dentition poor, no thrush Cardiovascular: S1, S2 normal. Respiratory: Absent breath sounds on R. GI: Soft, non-tender; bowel sounds normal. No peritoneal signs. Musculoskeletal: No pedal edema, no cyanosis. Skin: No rash or abscess Hem/Lymphatic: No palpable cervical or supraclavicular nodes. No lymphangitis Neurological: Moves spontaneously. - Constitutional Vitals: Vital Signs Temp Pulse Resp BP Pulse Ox 98.8 F 110 H 35 H 131/94 100 06/02/19 03:26 06/02/19 08:00 06/02/19 08:00 06/01/19 20:00 06/02/19 08:00 Temperature -Last 24 Hours Temperature 98.8 F Temperature 98.8 F Temperature 98.6 F - Labs CBC & Chem 7: 06/02/19 06:03 06/02/19 06:03 Labs: Abnormal lab results 06/01/19 06/02/19 06/02/19 Range/Units 12:23 06:03 06:03 WBC 18.6 H (4.5-11.0) K/mm3 RBC 3.37 L (3.65-5.03) M/mm3 Hgb 10.3 L (11.8-15.2) gm/dl Hct 31.3 L (35.5-45.6) % RDW 20.4 H (13.2-15.2) % Plt Count 115 L (140-440) K/mm3 Carbon Dioxide 32 H (22-30) mmol/L BUN 24 H (9-20) mg/dL Creatinine 0.4 L (0.8-1.5) mg/dL Glucose 123 H (75-100) mg/dL POC Glucose 161 H (70-105)
[2019-06-03] MEDS: DUONEB *Not for PRN Use IH SCH ×4 (02:38→19:14)
--- NOTE | 2019-06-03 02:48 | XRay Report ---
CHEST 1 VIEW 06/03/2019 2:12 AM INDICATION / CLINICAL INFORMATION: follow up respiratory failure. COMPARISON: Chest x-ray 06/02/2019 FINDINGS: SUPPORT DEVICES: None. HEART / MEDIASTINUM: No significant abnormality. LUNGS / PLEURA: Complete opacification of right hemithorax, unchanged. Small left pleural effusion/pl eural thickening and increased interstitial markings in left lung, unchanged No pneumothorax. ADDITIONAL FINDINGS: No significant additional findings. IMPRESSION: 1. Stable chest Signer Name: Michele Stover MD Signed: 06/03/2019 2:43 AM Workstation Name: [id number]
[2019-06-03 05:41] LABS: Hematocrit 35.8 % (35.5-45.6); Hemoglobin 11.5 gm/dl (11.8-15.2); Mean Corpuscular HGB Conc 32 % (32-34); Mean Corpuscular Volume 94 fl (84-94)
[2019-06-03] MEDS: MAXIPIME/NS 2 GM/100 ML 2 GM/100 ML BAG IV SCH ×3 (05:48→22:10)
[2019-06-03 05:50] LABS: Platelet Count 99 K/mm3 (140-440); Red Cell Distribution Width 20.4 % (13.2-15.2)
[2019-06-03 06:07] LABS: BUN/Creatinine Ratio 60; Blood Urea Nitrogen 24 mg/dL (9-20); Calcium 9.1 mg/dL (8.4-10.2); Hemolysis Index 30
[2019-06-03] MEDS: PULMICORT IH SCH ×2 (07:31→19:14)
--- NOTE | 2019-06-03 07:45 | Progress Note ---
Assessment and Plan Cultures: 05/31 BCx: NGTD 05/31 UCx: 10-100K mixed 05/31 sputum Cx: Normal respiratory tiffany Assessment: 68 y/o male with history of COPD, chronic respiratory failure, N SCLC, history of TB, severe malnutrition, Hx of HAP admitted with respiratory failure: 1. Septic shock secondary to pneumonia - shock resolved, no fever, leukocytosis improving. Initial CXR wit new infiltrate. Has severe baseline lung disease and is thus at high risk for infections. On cefepime. CXR improved. 2. Remote history of latent TB - [facility]. 3. Chronic respiratory failure 4. NSCLC - s/p radiation therapy 5. COPD 6. Severe malnutrition 7. Thrombocytopenia: ? cefepime, famotidine ?cancer Recommendations: - Continue cefepime 2g q8h total 5 days. Stop date: 06/04/19 - monitor platelets, consider stopping famotidine Will follow. Trixie Lim MD Infectious Diseases Manager Code [facility] ([facility]) M [phone] O [phone] Subjective Date of service: 06/03/19 Principal diagnosis: lung ca Interval history: Patient is alert, feels ok, reports chest pressure, no fever, no need for pressors overnight. Objective - Exam Narrative Exam: General appearance: Alert in NAD on HFO2 40% via NC Eyes: anicteric sclerae, moist conjunctivae; no lid-lag; PERRLA HENT: Atraumatic; oropharynx limited Lungs:jen coarse CV: RRR no murmur Abdomen: Soft, non-tender; no masses or hepatosplenomegaly Extremities: no edema, no cyanosis Skin: No rash. +tattoos Psych: no agitated - Constitutional Vitals: Vital Signs Temp Pulse Resp BP Pulse Ox 97.6 F 109 H 28 H 98/68 100 06/03/19 03:41 06/03/19 07:33 06/03/19 07:33 06/03/19 04:31 06/03/19 07:37 Temperature -Last 24 Hours Temperature 97.6 F Temperature 98.4 F Temperature 97.4 F Temperature 98.3 F Temperature 98.4 F Temperature 97.3 F - Labs CBC & Chem 7: 06/03/19 03:05 08/31/19 03:05 Labs: Abnormal lab results 06/03/19 06/03/19 Range/Units 03:05 03:05 WBC 13.3 H (4.5-11.0) K/mm3 Hgb 11.5 L (11.8-15.2) gm/dl RDW 20.4 H (13.2-15.2) % Plt Count 99 L (140-440) K/mm3 Chloride 95.8 L (98-107) mmol/L BUN 24 H (9-20) mg/dL Creatinine 0.4 L (0.8-1.5) mg/dL Glucose 61 L (75-100) mg/dL
[2019-06-03] MEDS: HEPARIN SUB-Q SCH ×2 (10:16→22:33)
[2019-06-03] MEDS: PEPCID PO SCH ×2 (10:16→22:10)
--- NOTE | 2019-06-03 14:11 | Progress Note ---
Assessment and Plan Acute on chronic hypoxic respiratory due to terminal lung cancer s/p ETT on admission and self extubation on 06/01/19: Cardiac arrest resolved Septic shock,with shock resolved Acute diastolic heart failure, Cor pulmonale Severe pulmonary hypertension Sepsis from post-obstructive Pneumonia Acute metabolic encephalopathy, poa Postobstructive Pneumonia NSCLC Severe malnutrition -Continue supplemental oxygen to keep O2 sats>90%, increase flow and FIO2- discussed with RT -Nocturnal NIPPV support, and prn during the day for work of breathing -Stress ulcer prophylaxis -Accuchecks with glycemic control -VTE prophylaxis -Antibiotics per ID -Bronchodilators -PT/OT to evaluate and treat -Pain management and supportive care -Complete Cefepime per ID recommendations Will discuss goals of care with him again. Currently remains full code Subjective Date of service: 06/03/19 Principal diagnosis: lung ca Interval history: Patient is seen today for: acute and chronic respiratory failure, s/p self- extubation; NSCLC; Right lung hemiopacification; Left lung new infiltrate Seen and examined at bedside; 24hour events reviewed; nursing and respiratory care staff consulted; no adverse overnight events reported to me- had episodes of desaturations requiring more oxygen therapy, currently on high flow oxygen. Complaining of thirst, and fatigue Vitals, labs, medications, chart and imaging reviewed. Objective - Exam Narrative Exam: General appearance: Alert in moderate respiratory distress on hgigh flow oxygen at 20L FIO2 40% Chronically ill looking, cachexia with tattoos Eyes: anicteric sclerae, moist conjunctivae; no lid-lag; PERRLA HENT: Atraumatic; oropharynx limited Lungs:jen coarse BS on the left, diminished BS on the right CV: RRR no murmur Abdomen: Soft, non-tender; no masses or hepato-splenomegaly Extremities: no edema, no cyanosis Skin: No rash. Psych: no agitated Vital Signs - 12hr 06/03/19 06/03/19 06/03/19 02:11 02:21 02:31 Temperature Pulse Rate 102 H 101 H 103 H Pulse Rate [ Anterior Bilateral Throughout] Pulse Rate [ Bilateral Throughout] Pulse Rate [ From Monitor] Respiratory 14 25 H 15 Rate Respiratory Rate [Anterior Bilateral Throughout] Respiratory Rate [Bilateral Throughout] Respiratory Rate [Chest] Blood Pressure 99/71 99/71 99/71 O2 Sat by Pulse 100 100 100 Oximetry 0806/03/19 06/03/19 02:34 02:41 02:47 Temperature Pulse Rate 102 H 99 H Pulse Rate [ 100 H Anterior Bilateral Throughout] Pulse Rate [ 98 H Bilateral Throughout] Pulse Rate [ From Monitor] Respiratory 25 H Rate Respiratory 24 Rate [Anterior Bilateral Throughout] Respiratory 25 H Rate [Bilateral Throughout] Respiratory Rate [Chest] Blood Pressure 99/71 O2 Sat by Pulse 100 Oximetry 06/03/19 06/03/19 06/03/19 02:51 03:00 03:11 Temperature Pulse Rate 101 H 99 H 101 H Pulse Rate [ Anterior Bilateral Throughout] Pulse Rate [ Bilateral Throughout] Pulse Rate [ From Monitor] Respiratory 26 H 18 20 Rate Respiratory Rate [Anterior Bilateral Throughout] Respiratory Rate [Bilateral Throughout] Respiratory Rate [Chest] Blood Pressure 99/71 92/62 92/62 O2 Sat by Pulse 100 100 100 Oximetry 06/03/19 06/03/19 06/03/19 03:21 03:31 03:41 Temperature 97.6 F Pulse Rate 99 H 100 H 102 H Pulse Rate [ Anterior Bilateral Throughout] Pulse Rate [ Bilateral Throughout] Pulse Rate [ From Monitor] Respiratory 18 21 21 Rate Respiratory Rate [Anterior Bilateral Throughout] Respiratory Rate [Bilateral Throughout] Respiratory Rate [Chest] Blood Pressure 92/62 92/62 92/62 O2 Sat by Pulse 100 100 100 Oximetry 06/03/19 06/03/19 06/03/19 03:51 04:00 04:11 Temperature Pulse Rate 102 H 103 H 102 H Pulse Rate [ Anterior Bilateral Throughout] Pulse Rate [ Bilateral Throughout] Pulse Rate [ 103 H From Monitor] Respiratory 24 22 18 Rate Respiratory Rate [Anterior Bilateral Throughout] Respiratory Rate [Bilateral Throughout] Respiratory Rate [Chest] Blood Pressure 92/62 98/68 98/68 O2 Sat by Pulse 100 100 100 Oximetry 06/03/19 06/03/19 06/03/19 04:21 04:31 05:09 Temperature Pulse Rate 103 H 102 H 100 H Pulse Rate [ Anterior Bilateral Throughout] Pulse Rate [ Bilateral Throughout] Pulse Rate [ 100 H From Monitor] Respiratory 24 13 20 Rate Respiratory Rate [Anterior Bilateral Throughout] Respiratory Rate [Bilateral Throughout] Respiratory Rate [Chest] Blood Pressure 98/68 98/68 O2 Sat by Pulse 100 100 100 Oximetry 06/03/19 06/03/19 06/03/19 07:33 07:37 08:00 Temperature 97.7 F Pulse Rate Pulse Rate [ 109 H Anterior Bilateral Throughout] Pulse Rate [ 97 H Bilateral Throughout] Pulse Rate [ From Monitor] Respiratory Rate Respiratory 28 H Rate [Anterior Bilateral Throughout] Respiratory 24 Rate [Bilateral Throughout] Respiratory Rate [Chest] Blood Pressure O2 Sat by Pulse 100 Oximetry 06/03/19 06/03/19 06/03/19 09:00 10:00 12:00 Temperature 96.8 F L Pulse Rate 106 H Pulse Rate [ Anterior Bilateral Throughout] Pulse Rate [ Bilateral Throughout] Pulse Rate [ 106 H From Monitor] Respiratory 23 Rate Respiratory Rate [Anterior Bilateral Throughout] Respiratory Rate [Bilateral Throughout] Respiratory 23 Rate [Chest] Blood Pressure O2 Sat by Pulse 100 Oximetry CBC and BMP: 06/03/19 03:05 06/03/19 03:05 ABG, PT/INR, D-dimer: ABG POC ABG pH 7.327 (7.35-7.45) L 05/31/19 16:27 ABG pH 7.367 pH Units (7.350-7.450) 06/01/19 04:27 POC ABG pCO2 64.0 (35-45) H 05/31/19 16:27 ABG pCO2 50.8 mm Hg 06/01/19 04:27 POC ABG pO2 67 (80-105) L 05/31/19 16:27 ABG pO2 114.4 mm Hg (80.0-90.0) H 06/01/19 04:27 POC ABG HCO3 33.5 (22-26 mml/L) 05/31/19 16:27 POC ABG Total CO2 35 (23-27mmol/L) 05/31/19 16:27 POC ABG O2 Sat 91 05/31/19 16:27 ABG O2 Saturation 98.0 % (95.0-99.0) 06/01/19 04:27 Abnormal lab findings: Abnormal Labs 05/31/19 05/31/19 05/31/19 09:24 09:24 09:46 WBC 28.5 H RBC 3.46 L Hgb 10.4 L Hct 31.6 L RDW 19.9 H Plt Count Seg Neuts % (Manual) 93.0 H Lymphocytes % (Manual) 4.0 L Seg Neutrophils # Man 26.5 H Lymphocytes # (Manual) 1.1 L POC ABG pH POC ABG pCO2 POC ABG pO2 ABG pO2 ABG HCO3 ABG Hemoglobin Sodium Chloride 94.9 L Carbon Dioxide 37 H BUN Creatinine 0.3 L Glucose POC Glucose Calcium 8.2 L Alkaline Phosphatase 151 H Total Protein 5.3 L Albumin 2.4 L Urine pH 8.0 H 05/31/19 05/31/19 05/31/19 09:59 12:25 16:27 WBC RBC Hgb Hct RDW Plt Count Seg Neuts % (Manual) Lymphocytes % (Manual) Seg Neutrophils # Man Lymphocytes # (Manual) POC ABG pH 7.249 L 7.296 L 7.327 L POC ABG pCO2 64.0 H POC ABG pO2 373 H 67 L ABG pO2 ABG HCO3 ABG Hemoglobin Sodium Chloride Carbon Dioxide BUN Creatinine Glucose POC Glucose Calcium Alkaline Phosphatase Total Protein Albumin Urine pH 05/31/19 06/01/19 06/01/19 18:12 04:27 05:40 WBC 16.4 H RBC 2.94 L Hgb 8.7 L Hct 27.6 L RDW 20.8 H Plt Count 116 L Seg Neuts % (Manual) Lymphocytes % (Manual) Seg Neutrophils # Man Lymphocytes # (Manual) POC ABG pH POC ABG pCO2 POC ABG pO2 ABG pO2 114.4 H ABG HCO3 28.5 H ABG Hemoglobin 9.6 L Sodium Chloride Carbon Dioxide BUN Creatinine Glucose POC Glucose 129 H Calcium Alkaline Phosphatase Total Protein Albumin Urine pH 06/01/19 06/01/19 06/02/19 05:40 12:23 06:03 WBC 18.6 H RBC 3.37 L Hgb 10.3 L Hct 31.3 L RDW 20.4 H Plt Count 115 L Seg Neuts % (Manual) Lymphocytes % (Manual) Seg Neutrophils # Man Lymphocytes # (Manual) POC ABG pH POC ABG pCO2 POC ABG pO2 ABG pO2 ABG HCO3 ABG Hemoglobin Sodium 147 H Chloride 110.6 H Carbon Dioxide BUN 23 H Creatinine 0.3 L Glucose 112 H POC Glucose 161 H Calcium 7.0 L Alkaline Phosphatase Total Protein Albumin Urine pH 06/02/19 06/03/19 06/03/19 06:03 03:05 03:05 WBC 13.3 H RBC Hgb 11.5 L Hct RDW 20.4 H Plt Count 99 L Seg Neuts % (Manual) Lymphocytes % (Manual) Seg Neutrophils # Man Lymphocytes # (Manual) POC ABG pH POC ABG pCO2 POC ABG pO2 ABG pO2 ABG HCO3 ABG Hemoglobin Sodium Chloride 95.8 L Carbon Dioxide 32 H BUN 24 H 24 H Creatinine 0.4 L 0.4 L Glucose 123 H 61 L POC Glucose Calcium Alkaline Phosphatase Total Protein Albumin Urine pH
--- NOTE | 2019-06-03 17:37 | Progress Note ---
Assessment and Plan Assessment and plan: Patient should have discharge planning. We'll consider back to hospice. Prognosis grave. The high probability of a clinically significant, sudden or life threatening deterioration of the [] system(s) required my full and direct attention, intervention and personal management. The aggregate critical care time was [] minutes. This time is in addition to time spent performing reported procedures but includes the following: [x] Data Review and interpretation [x] Patient assessment and monitoring of vital signs [x] Documentation [x] Medication orders and management Total Time Spent with Patient (Minutes): 33 - Patient Problems (1) Acute respiratory distress Current Visit: Yes Status: Acute Plan to address problem: Respiratory distress has resolved. Patient's more comfortable. 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 Patient chronically ill continue neb ulizers continue LABA continue steroids when needed. (3) Cardiac arrest Current Visit: Yes Status: Acute Plan to address problem: Status post cardiac arrest. Most likely secondary to underlying lung disease and hypoxemia. Hypoxemia appears to have resolved. In appropriate for hospice services. (4) Pneumonia Current Visit: Yes Status: Acute Qualifiers: Pneumonia type: due to unspecified organism Laterality: left Lung location: unspecified part of lung Qualified Code(s): J18.9 - Pneumonia, unspecified organism Plan to address problem: Pneumonia improving leukocytosis improving. Sepsis secondary to pneumonia. Chest x-ray improved. Still has opacification of long but this will not imp rove. DC antibiotics in a.m. (5) Advance care planning Current Visit: No Status: Acute Plan to address problem: Would Wednesday for hospice services not sure hospice patient was on previously. (6) Severe malnutrition Current Visit: No Status: Acute Plan to address problem: Secondary to catabolic state from lung cancer. (7) Lung cancer Current Visit: No Status: Chronic Qualifiers: Laterality: right Lung location: overlapping sites Qualified Code(s): C34.81 - Malignant neoplasm of overlapping sites of right bronchus and lung Plan to address problem: Lim with in NSCLC opacification right lung overall prognosis poor patient was receiving radiation. Not sure if patient is still receiving this for patient is just on hospice at this particular time. History Interval history: She is resting comfortably with high volume O2. Since in NSCLC in the hospital also questionable underlying pneumonia. Physical exam patient chronically ill- appearing barrel chest. Poor air entry Hospitalist Physical - Constitutional Vitals: Temp Pulse Resp BP Pulse Ox 96.8 F L 104 H 32 H 98/68 95 06/03/19 12:00 06/03/19 15:00 06/03/19 15:00 06/03/19 04:31 06/03/19 15:00 General appearance: Present: no acute distress - EENT Eyes: Present: PERRL, EOM intact ENT: hearing intact, clear oral mucosa, dentition normal, other (temporal wasting) - Neck Neck: Present: supple, normal ROM. Absent: enlarged thyroid, masses or JVD, cervical LAD, carotid bruits - Respiratory Respiratory: right: diminished, bilateral: rhonchi - Cardiovascular Rhythm: regular - Extremities Extremities: pulses intact, No edema, normal temperature, normal color Peripheral Pulses: abnormal - Abdominal General gastrointestinal: soft, non-tender, tender, normal bowel sounds, no distended, no hypoactive bowel sounds, no absent bowel sounds, no hepatomegaly, no splenomegaly - Psychiatric Psychiatric: cooperative - Neurologic Neurologic: other (mild cognitive impairment. Maybe hypoxemia.) Results - Labs CBC & Chem 7: 06/03/19 03:05 06/03/19 03:05 Labs: Laboratory Last Values WBC 13.3 K/mm3 (4.5-11.0) H 06/03/19 03:05 RBC 3.80 M/mm3 (3.65-5.03) 06/03/19 03:05 Hgb 11.5 gm/dl (11.8-15.2) L 06/03/19 03:05 Hct 35.8 % (35.5-45.6) 06/03/19 03:05 MCV 94 fl (84-94) 06/03/19 03:05 MCH 30 pg (28-32) 06/03/19 03:05 MCHC 32 % (32-34) 06/03/19 03:05 RDW 20.4 % (13.2-15.2) H 06/03/19 03:05 Plt Count 99 K/mm3 (140-440) L 06/03/19 03:05 Add Manual Diff Complete 05/31/19 09:24 Total Counted 100 08/28/19 09:24 Seg Neutrophils % Bone Char Kiln Operator 05/31/19 09:24 Seg Neuts % (Manual) 93.0 % (40.0-70.0) H 05/31/19 09:24 0 % 05/31/19 09:24 4.0 % (13.4-35.0) L 05/31/19 09:24 Reactive Lymphs % (Man) 0 % 05/31/19 09:24 2.0 % (0.0-7.3) 05/31/19 09:24 1.0 % (0.0-4.3) 05/31/19 09:24 0 % (0.0-1.8) 05/31/19 09:24 0 % 05/31/19 09:24 0 % 05/31/19 09:24 0 % 05/31/19 09:24 0 % 05/31/19 09:24 Nucleated RBC % Not Reportable 05/31/19 09:24 Seg Neutrophils # Man 26.5 K/mm3 (1.8-7.7) H 05/31/19 09:24 Band Neutrophils # 0.0 K/mm3 05/31/19 09:24 1.1 K/mm3 (1.2-5.4) L 05/31/19 09:24 Abs React Lymphs (Man) 0.0 K/mm3 05/31/19 09:24 0.6 K/mm3 (0.0-0.8) 05/31/19 09:24 0.3 K/mm3 (0.0-0.4) 05/31/19 09:24 0.0 K/mm3 (0.0-0.1) 05/31/19 09:24 0.0 K/mm3 05/31/19 09:24 0.0 K/mm3 05/31/19 09:24 0.0 K/mm3 05/31/19 09:24 Blast Cells # 0.0 K/mm3 05/31/19 09:24 WBC Morphology Not Reportable 05/31/19 09:24 Hypersegmented Neuts Not Reportable 05/31/19 09:24 Hyposegmented Neuts Not Reportable 05/31/19 09:24 Hypogranular Neuts Not Reportable 05/31/19 09:24 Not Reportable 05/31/19 09:24 Not Reportable 05/31/19 09:24 Not Reportable 05/31/19 09:24 Not Reportable 05/31/19 09:24 Not Reportable 05/31/19 09:24 Not Reportable 05/31/19 09:24 Consistent w auto 05/31/19 09:24 Not Reportable 05/31/19 09:24 Plt Clumps, EDTA Not Reportable 05/31/19 09:24 Not Reportable 05/31/19 09:24 Not Reportable 05/31/19 09:24 Not Reportable 05/31/19 09:24 Plt Morphology Comment Not Reportable 05/31/19 09:24 RBC Morphology Not Reportable 05/31/19 09:24 Dimorphic RBCs Not Reportable 05/31/19 09:24 Not Reportable 05/31/19 09:24 Not Reportable 05/31/19 09:24 Not Reportable 05/31/19 09:24 1+ 05/31/19 09:24 Rare 05/31/19 09:24 Not Reportable 05/31/19 09:24 Not Reportable 05/31/19 09:24 Not Reportable 05/31/19 09:24 Not Reportable 05/31/19 09:24 Rare 05/31/19 09:24 Not Reportable 05/31/19 09:24 Not Reportable 05/31/19 09:24 Not Reportable 05/31/19 09:24 Not Reportable 05/31/19 09:24 Not Reportable 05/31/19 09:24 Not Reportable 05/31/19 09:24 Not Reportable 05/31/19 09:24 Not Reportable 05/31/19 09:24 Not Reportable 05/31/19 09:24 Acanthocytes (Spur) Not Reportable 05/31/19 09:24 Rouleaux Not Reportable 05/31/19 09:24 Not Reportable 05/31/19 09:24 Not Reportable 05/31/19 09:24 Not Reportable 05/31/19 09:24 Not Reportable 05/31/19 09:24 Hem Pathologist Commnt No 05/31/19 09:24 POC ABG pH 7.327 (7.35-7.45) L 05/31/19 16:27 ABG pH 7.367 pH Units (7.350-7.450) 06/01/19 04:27 POC ABG pCO2 64.0 (35-45) H 05/31/19 16:27 ABG pCO2 50.8 mm Hg 06/01/19 04:27 POC ABG pO2 67 (80-105) L 05/31/19 16:27 ABG pO2 114.4 mm Hg (80.0-90.0) H 06/01/19 04:27 POC ABG HCO3 33.5 (22-26 mml/L) 05/31/19 16:27 ABG HCO3 28.5 mmol/L (20.0-26.0) H 06/01/19 04:27 POC ABG Total CO2 35 (23-27mmol/L) 05/31/19 16:27 POC ABG O2 Sat 91 05/31/19 16:27 ABG O2 Saturation 98.0 % (95.0-99.0) 06/01/19 04:27 ABG O2 Content 13.1 (0.0-44) 06/01/19 04:27 POC ABG Base Excess 8 ((-2) - (+3)mmol/L) 05/31/19 16:27 ABG Base Excess 2.6 mmol/L (-2.0-3.0) 06/01/19 04:27 ABG Hemoglobin 9.6 gm/dl (14.0-18.0) L 06/01/19 04:27 ABG Carboxyhemoglobin 1.9 % (0.0-5.0) 06/01/19 04:27 ABG Methemoglobin 0.5 % (0.0-1.5) 06/01/19 04:27 95.6 % (95.0-99.0) 06/01/19 04:27 40 % 06/01/19 04:27 Sodium 143 mmol/L (137-145) 06/03/19 03:05 Potassium 4.6 mmol/L (3.6-5.0) 06/03/19 03:05 Chloride 95.8 mmol/L (98-107) L 06/03/19 03:05 Carbon Dioxide 30 mmol/L (22-30) 06/03/19 03:05 22 mmol/L 06/03/19 03:05 BUN 24 mg/dL (9-20) H 06/03/19 03:05 0.4 mg/dL (0.8-1.5) L 06/03/19 03:05 Estimated GFR > 60 ml/min 06/03/19 03:05 60 % 06/03/19 03:05 Glucose 61 mg/dL (75-100) L 06/03/19 03:05 POC Glucose 161 (70-105) H 06/01/19 12:23 Calcium 9.1 mg/dL (8.4-10.2) 06/03/19 03:05 1.00 mg/dL (0.1-1.2) 05/31/19 09:24 AST 22 units/L (5-40) 05/31/19 09:24 ALT 41 units/L (7-56) 05/31/19 09:24 151 units/L (35-129) H 05/31/19 09:24 0.021 ng/mL (0.00-0.029) 05/31/19 09:24 5.3 g/dL (6.3-8.2) L 05/31/19 09:24 2.4 g/dL (3.9-5) L 05/31/19 09:24 0.8 % 05/31/19 09:24 Straw (Yellow) 05/31/19 09:46 Slightly-cloudy (Clear) 05/31/19 09:46 8.0 (5.0-7.0) H 05/31/19 09:46 Ur Specific [place] 1.004 (1.003-1.030) 05/31/19 09:46 <15 mg/dl mg/dL (Negative) 05/31/19 09:46 Neg mg/dL (Negative) 05/31/19 09:46 Neg mg/dL (Negative) 05/31/19 09:46 Sm (Negative) 05/31/19 09:46 Neg (Negative) 05/31/19 09:46 Neg (Negative) 05/31/19 09:46 < 2.0 mg/dL (<2.0) 05/31/19 09:46 Ur Leukocyte Esterase Neg (Negative) 05/31/19 09:46 < 1.0 /HPF (0.0-6.0) 05/31/19 09:46 1.0 /HPF (0.0-6.0) 05/31/19 09:46 U Epithel Cells (Auto) 1.0 /HPF (0-13.0) 05/31/19 09:46 1+ /HPF (Negative) 05/31/19 09:46 Amorphous Crystals 1+ 05/31/19 09:46 Few /HPF 05/31/19 09:46 - Imaging and Cardiology Chest x-ray: image reviewed Abdominal x-ray: report reviewed, image reviewed Venous US: report reviewed Active Medications - Current Medications Current Medications: Generic Name Dose Route Start Last Admin Trade Name Freq PRN Reason Stop Dose Admin Albuterol/Ipratropium 1 ampul 06/01/19 09:45 06/03/19 15:17 Duoneb *Not For Prn Use* IH 1 ampul Q6HRT FRANCISCO JAVIER Administration Budesonide 0.5 mg 06/01/19 09:45 06/03/19 07:31 Pulmicort IH 0.5 mg Q12HRT FRANCISCO JAVIER Administration Famotidine 20 mg 06/01/19 10:00 06/03/19 10:16 Pepcid PO 20 mg BID FRANCISCO JAVIER Administration Heparin Sodium (Porcine) 5,000 unit 05/31/19 22:00 06/03/19 10:16 Heparin SUB-Q 5,000 unit Q12HR FRANCISCO JAVIER Administration Hydrophilic Ointment 1 applic 05/31/19 13:17 Vaseline Lip Therapy TP Q2HR PRN Dry Lips Cefepime HCl 2 gm in 100 mls @ 200 mls/hr 05/31/19 22:00 06/03/19 14:47 Maxipime/Ns 2 Gm/100 Ml IV 200 mls/hr Q8HR FRANCISCO JAVIER Administration Protocol Multi-Ingred Cream/Lotion/Oil/Oint 1 applic 05/31/19 13:17 Artificial Tears Ophth Oint OU Q4HR PRN Dry Eye(s) Nutrition/Malnutrition Assess - Dietary Evaluation Nutrition/Malnutrition Findings: Nutrition Notes Start: 05/31/19 13:59 Freq: Status: Active Protocol: Document 06/01/19 10:34 LM (Rec: 06/01/19 10:51 LM [email or web address]) Nutrition Notes Initial or Follow up Reassessment Current Diagnosis COPD,Heart Failure Other Pertinent Diagnosis Lung ca, pneumonia, sepsis, sacral pressure ulcer Current Diet Jevity 1.2 at 70 ml/hr Labs/Tests BG 112 Na 147 BUN 23 Cr 0.3 Pertinent Medications Reviewed Height 5 ft 7 in Weight 50 kg [place] Body Weight (kg) 67.27 BMI 17.2 Subjective/Other Information TF running at 20 ml/hr at time of visit. Pt toerating TF. Percent of energy/protein needs met: 29%/44% Burn Absent Trauma Absent #2 Nutrition Diagnosis Increased nutrient needs ( specify in comment below) Comments: Protein Etiology wound healing As Evidenced by Signs and Symptoms sacral pressure ulcer #1 Nutrition Diagnosis Inadequate oral intake Diagnosis Progress(for reassessment Continues documentation) Is patient on ventilator? Yes Is Patient Ambulatory and/or Out of Bed No REE-([place]-confined to bed) 1492.092 Kcal/Kg value to use for calculation 40 Approximate Energy Requirements Using 2000 kcal/Kg Calculation Used for Recommendations Kcal/kg Additional Notes Protein: 60-100g (1.2-2g/kg) Fluids: 1 ml/kcal Nutrition Intervention Change Diet Order: Continue TF Nutrition Support: Jevity 1.2 at 70 ml/hr Flush 200 ml q4hr or per MD Kcal 2,016 Protein (gm) 93 Fluid (mL) 1,356 Goal #1 Meet at least 80% of energy and protein needs Goal #2 TF tolerance Anticipated Discharge Needs: unable to determine at this time Follow-Up By: 06/05/19 Additional Comments F/U for TF start/tolerance
[2019-06-04] MEDS: DUONEB *Not for PRN Use IH SCH ×4 (01:35→19:03)
--- NOTE | 2019-06-04 03:09 | XRay Report ---
CHEST 1 VIEW 06/04/2019 2:13 AM INDICATION / CLINICAL INFORMATION: follow up respiratory failure. COMPARISON: Chest x-ray 06/03/2019 FINDINGS: SUPPORT DEVICES: None. HEART / MEDIASTINUM: No significant abnormality. LUNGS / PLEURA: There remains complete opacification of the right hemithorax and moderate increased i nterstitial markings throughout the left lung, unchanged. No pneumothorax. ADDITIONAL FINDINGS: No significant additional findings. IMPRESSION: 1. Stable chest Signer Name: Michele Stover MD Signed: 06/04/2019 3:05 AM Workstation Name: [employer]
[2019-06-04] MEDS: MAXIPIME/NS 2 GM/100 ML 2 GM/100 ML BAG IV SCH ×3 (05:05→22:01)
--- NOTE | 2019-06-04 06:49 | Hem/Onc Progress Note ---
Assessment and Plan 1. Advanced non-small cell lung cancer. 2. Chronic obstructive pulmonary disease. 3. Respiratory failure. 4. History of tuberculosis in the past. 5. Malnutrition. 6. h/o Mild thrombocytopenia. 7. h/o Mild anemia. 8. was Intubated. 9. The patient was in hospice. This was removed. 10. The patient has had radiation therapy by Dr. Goodrich. 11. The patient had thoracentesis in the past. The patient's performance status is not very good. Prognosis is very poor. I have never been able to speak to any family members. The question is, if he is hospice appropriate or if something can be done for him. He has not been able to keep up his outpatient appointment due to insurance issues. - Patient Problems (1) Lung cancer Current Visit: No Status: Chronic Qualifiers: Laterality: right Lung location: overlapping sites Qualified Code(s): C34.81 - Malignant neoplasm of overlapping sites of right bronchus and lung Subjective Date of service: 06/04/19 Principal diagnosis: lung ca Interval history: off vent - on o2 - still SOB Objective - Exam Narrative Exam: Pain - not evaluable - pt very SOB - on o2 General appearance SOB Performance status complete dependent Eyes - no icterus ENT - no bleeding LNs cervical not palpable Neck - no LN Respiratory Normal Breath sounds -decreased CVS S1 S2 + Extremities no edema General GI Soft Rectal deferred male - deferred Skin warm Musculoskeletal moving extremitites Neurologically awake - Constitutional Vitals: Last Vital Signs Temp 98.4 F 06/04/19 03:20 Pulse 113 H 06/04/19 05:55 Resp 28 H 06/04/19 05:55 BP 139/93 06/04/19 05:51 Pulse Ox 100 06/04/19 05:55 Medications & Allergies - Medications Allergies/Adverse Reactions: Allergies No Known Allergies Allergy (Verified 05/12/19 17:25) Home Medications: Home Medications Medication Instructions Recorded Confirmed Last Taken Type RX: Folic Acid [Folvite] 1 mg PO QDAY #30 tablet 04/17/19 06/01/19 05/24/19 Rx RX: Furosemide [Lasix TAB] 20 mg PO QDAY #30 tablet 04/17/19 05/31/19 05/24/19 Rx RX: Temazepam [Restoril] 15 mg PO QHS PRN #7 capsule 04/17/19 05/31/19 05/23/19 Rx RX: Thiamine [Vitamin B-1] 100 mg PO QDAY #30 tablet 04/17/19 06/01/19 05/24/19 Rx RX: ALBUTEROL Inhaler (OR & NICU) 2 puff IH QID PRN 30 Days #1 pump 05/28/19 Unknown Rx [ProAir HFA Inhaler] RX: Ipratropium/Albuterol Sulfate 1 ampul IH Q6HRT #120 ampul.neb 05/28/19 05/31/19 Unknown Rx [DUONEB *Not for PRN Use*] RX: Prednisone [predniSONE 10 mg 10 mg PO .TAPER #1 tab.ds.pk 05/28/19 06/01/19 Unknown Rx (6-Day Pack, 21 Tabs)] RX: oxyCODONE /ACETAMINOPHEN 1 tab PO Q6H PRN #14 tablet 05/28/19 05/31/19 Unknown Rx [Percocet 5/325 mg] Fluconazole [Diflucan TAB] 150 mg PO PRN PRN 05/31/19 05/31/19 Unknown History LORazepam [Ativan] 0.5 mg PO Q6H PRN 05/31/19 05/31/19 Unknown History RX: Docusate Sodium [Colace CAP] 1 cap PO PRN PRN 05/31/19 05/31/19 Unknown History Active Medications: Generic Name Dose Route Start Last Admin Trade Name Freq PRN Reason Stop Dose Admin Albuterol/Ipratropium 1 ampul 06/01/19 09:45 06/04/19 01:35 Duoneb *Not For Prn Use* IH 1 ampul Q6HRT FRANCISCO JAVIER Administration Budesonide 0.5 mg 06/01/19 09:45 06/03/19 19:14 Pulmicort IH 0.5 mg Q12HRT FRANCISCO JAVIER Administration Famotidine 20 mg 06/01/19 10:00 06/03/19 22:10 Pepcid PO 20 mg BID FRANCISCO JAVIER Administration Heparin Sodium (Porcine) 5,000 unit 05/31/19 22:00 06/03/19 22:33 Heparin SUB-Q 5,000 unit Q12HR FRANCISCO JAVIER Administration Hydrophilic Ointment 1 applic 05/31/19 13:17 Vaseline Lip Therapy TP Q2HR PRN Dry Lips Cefepime HCl 2 gm in 100 mls @ 200 mls/hr 05/31/19 22:00 06/04/19 05:05 Maxipime/Ns 2 Gm/100 Ml IV 200 mls/hr Q8HR FRANCISCO JAVIER Administration Protocol Multi-Ingred Cream/Lotion/Oil/Oint 1 applic 05/31/19 13:17 Artificial Tears Ophth Oint OU Q4HR PRN Dry Eye(s)
[2019-06-04] MEDS: PULMICORT IH SCH ×2 (07:17→19:03)
[2019-06-04] MEDS: PEPCID PO SCH ×2 (09:25→22:01)
[2019-06-04] MEDS: HEPARIN SUB-Q SCH ×2 (09:26→22:01)
--- NOTE | 2019-06-04 13:46 | Progress Note ---
Assessment and Plan Acute on chronic hypoxic respiratory due to terminal lung cancer s/p ETT on admission and self extubation on 06/01/19: Cardiac arrest resolved Septic shock,with shock resolved Acute diastolic heart failure, Cor pulmonale Severe pulmonary hypertension Sepsis from post-obstructive Pneumonia Acute metabolic encephalopathy, poa Postobstructive Pneumonia NSCLC Severe malnutrition -Continue supplemental oxygen to keep O2 sats>90%, increase flow and FIO2- discussed with RT -Nocturnal NIPPV support, and prn during the day for work of breathing -Stress ulcer prophylaxis -Accuchecks with glycemic control -VTE prophylaxis -Bronchodilators -PT/OT to evaluate and treat -Pain management and supportive care -Complete Cefepime per ID recommendations Will discuss goals of care with him again. He is adamant that he does not want to be resuscitated. His ex-girlfriend is at the bedside, the charge PRODUCTION CONTROL MANAGER and his RN are at the bedside. He is agreeable to BIPAP support. Code status: DNAR Subjective Date of service: 06/04/19 Principal diagnosis: lung ca Interval history: Patient is seen today for: acute and chronic respiratory failure, s/p self- extubation; NSCLC; Right lung hemiopacification; Left lung new infiltrate Seen and examined at bedside; 24hour events reviewed; nursing and respiratory care staff consulted; no adverse overnight events reported to me- had episodes of desaturations requiring more oxygen therapy, currently on high flow oxygen, very fatigued and tacyhpnic. No fevers, no nausea, no vomiting. Has not eaten much today Ex-girlfriend at the bedside, charge nurse, renetta ZABALA's RN for the day. Asking for water, but I have asked that he wait a few hours while we improve his work of breathing using BIPAP Vitals, labs, medications, chart and imaging reviewed. Objective - Exam Narrative Exam: General appearance: Alert in moderate respiratory distress on hgigh flow oxygen at 20L FIO2 40% Chronically ill looking, cachexia with tattoos Eyes: anicteric sclerae, moist conjunctivae; no lid-lag; PERRLA HENT: Atraumatic; oropharynx limited Lungs:jen coarse BS on the left, diminished BS on the right CV: RRR no murmur Abdomen: Soft, non-tender; no masses or hepato-splenomegaly Extremities: no edema, no cyanosis Skin: No rash. Psych: no agitated Vital Signs - 12hr 06/04/19 06/04/19 06/04/19 01:51 01:59 02:00 Temperature Pulse Rate 112 H 113 H Pulse Rate [ Anterior Bilateral Throughout] Pulse Rate [ 113 H Bilateral Throughout] Pulse Rate [ From Monitor] Respiratory 30 H 30 H Rate Respiratory Rate [Anterior Bilateral Throughout] Respiratory 24 Rate [Bilateral Throughout] Blood Pressure 132/86 136/90 O2 Sat by Pulse 99 94 Oximetry 06/04/19 06/04/19 06/04/19 02:11 02:21 02:31 Temperature Pulse Rate 111 H 112 H 114 H Pulse Rate [ Anterior Bilateral Throughout] Pulse Rate [ Bilateral Throughout] Pulse Rate [ From Monitor] Respiratory 17 22 26 H Rate Respiratory Rate [Anterior Bilateral Throughout] Respiratory Rate [Bilateral Throughout] Blood Pressure 136/90 136/90 136/90 O2 Sat by Pulse 97 94 93 Oximetry 06/04/19 06/04/19 06/04/19 02:41 02:51 03:00 Temperature Pulse Rate 113 H 113 H 114 H Pulse Rate [ Anterior Bilateral Throughout] Pulse Rate [ Bilateral Throughout] Pulse Rate [ From Monitor] Respiratory 23 32 H 35 H Rate Respiratory Rate [Anterior Bilateral Throughout] Respiratory Rate [Bilateral Throughout] Blood Pressure 136/90 136/90 135/93 O2 Sat by Pulse 94 94 93 Oximetry 06/04/19 06/04/19 06/04/19 03:11 03:20 03:21 Temperature 98.4 F Pulse Rate 113 H 113 H Pulse Rate [ Anterior Bilateral Throughout] Pulse Rate [ Bilateral Throughout] Pulse Rate [ From Monitor] Respiratory 21 23 Rate Respiratory Rate [Anterior Bilateral Throughout] Respiratory Rate [Bilateral Throughout] Blood Pressure 135/93 135/93 O2 Sat by Pulse 94 95 Oximetry 06/04/19 06/04/19 06/04/19 03:31 03:41 03:51 Temperature Pulse Rate 114 H 112 H 112 H Pulse Rate [ Anterior Bilateral Throughout] Pulse Rate [ Bilateral Throughout] Pulse Rate [ From Monitor] Respiratory 14 18 22 Rate Respiratory Rate [Anterior Bilateral Throughout] Respiratory Rate [Bilateral Throughout] Blood Pressure 135/93 135/93 135/93 O2 Sat by Pulse 96 97 95 Oximetry 06/04/19 06/04/19 06/04/19 04:00 04:11 04:21 Temperature Pulse Rate 113 H 111 H 111 H Pulse Rate [ Anterior Bilateral Throughout] Pulse Rate [ Bilateral Throughout] Pulse Rate [ From Monitor] Respiratory 25 H 20 21 Rate Respiratory Rate [Anterior Bilateral Throughout] Respiratory Rate [Bilateral Throughout] Blood Pressure 142/95 142/95 142/95 O2 Sat by Pulse 93 97 96 Oximetry 06/04/19 06/04/19 06/04/19 04:31 04:41 04:51 Temperature Pulse Rate 111 H 110 H 110 H Pulse Rate [ Anterior Bilateral Throughout] Pulse Rate [ Bilateral Throughout] Pulse Rate [ From Monitor] Respiratory 34 H 27 H 29 H Rate Respiratory Rate [Anterior Bilateral Throughout] Respiratory Rate [Bilateral Throughout] Blood Pressure 142/95 142/95 142/95 O2 Sat by Pulse 96 95 96 Oximetry 06/04/19 06/04/19 06/04/19 05:00 05:11 05:21 Temperature Pulse Rate 110 H 113 H 116 H Pulse Rate [ Anterior Bilateral Throughout] Pulse Rate [ Bilateral Throughout] Pulse Rate [ From Monitor] Respiratory 36 H 31 H 28 H Rate Respiratory Rate [Anterior Bilateral Throughout] Respiratory Rate [Bilateral Throughout] Blood Pressure 139/93 139/93 139/93 O2 Sat by Pulse 95 89 93 Oximetry 06/04/19 06/04/19 06/04/19 05:31 05:41 05:51 Temperature Pulse Rate 114 H 113 H 115 H Pulse Rate [ Anterior Bilateral Throughout] Pulse Rate [ Bilateral Throughout] Pulse Rate [ From Monitor] Respiratory 41 H 53 H 33 H Rate Respiratory Rate [Anterior Bilateral Throughout] Respiratory Rate [Bilateral Throughout] Blood Pressure 139/93 139/93 139/93 O2 Sat by Pulse 97 95 93 Oximetry 06/04/19 06/04/19 06/04/19 05:55 07:17 07:24 Temperature Pulse Rate 113 H Pulse Rate [ 113 H Anterior Bilateral Throughout] Pulse Rate [ 112 H Bilateral Throughout] Pulse Rate [ 113 H From Monitor] Respiratory 28 H Rate Respiratory 27 H Rate [Anterior Bilateral Throughout] Respiratory 20 Rate [Bilateral Throughout] Blood Pressure O2 Sat by Pulse 100 97 Oximetry 06/04/19 06/04/19 06/04/19 08:05 09:00 12:25 Temperature 97.6 F 96.9 F L Pulse Rate Pulse Rate [ Anterior Bilateral Throughout] Pulse Rate [ Bilateral Throughout] Pulse Rate [ 112 H From Monitor] Respiratory 27 H Rate Respiratory Rate [Anterior Bilateral Throughout] Respiratory Rate [Bilateral Throughout] Blood Pressure O2 Sat by Pulse 94 Oximetry 06/04/19 13:07 Temperature Pulse Rate Pulse Rate [ Anterior Bilateral Throughout] Pulse Rate [ Bilateral Throughout] Pulse Rate [ From Monitor] Respiratory Rate Respiratory Rate [Anterior Bilateral Throughout] Respiratory Rate [Bilateral Throughout] Blood Pressure O2 Sat by Pulse 92 Oximetry CBC and BMP: 06/03/19 03:05 06/03/19 03:05 ABG, PT/INR, D-dimer: ABG POC ABG pH 7.327 (7.35-7.45) L 05/31/19 16:27 ABG pH 7.367 pH Units (7.350-7.450) 06/01/19 04:27 POC ABG pCO2 64.0 (35-45) H 05/31/19 16:27 ABG pCO2 50.8 mm Hg 06/01/19 04:27 POC ABG pO2 67 (80-105) L 05/31/19 16:27 ABG pO2 114.4 mm Hg (80.0-90.0) H 06/01/19 04:27 POC ABG HCO3 33.5 (22-26 mml/L) 05/31/19 16:27 POC ABG Total CO2 35 (23-27mmol/L) 05/31/19 16:27 POC ABG O2 Sat 91 05/31/19 16:27 ABG O2 Saturation 98.0 % (95.0-99.0) 06/01/19 04:27 Abnormal lab findings: Abnormal Labs 05/31/19 05/31/19 05/31/19 09:24 09:24 09:46 WBC 28.5 H RBC 3.46 L Hgb 10.4 L Hct 31.6 L RDW 19.9 H Plt Count Seg Neuts % (Manual) 93.0 H Lymphocytes % (Manual) 4.0 L Seg Neutrophils # Man 26.5 H Lymphocytes # (Manual) 1.1 L POC ABG pH POC ABG pCO2 POC ABG pO2 ABG pO2 ABG HCO3 ABG Hemoglobin Sodium Chloride 94.9 L Carbon Dioxide 37 H BUN Creatinine 0.3 L Glucose POC Glucose Calcium 8.2 L Alkaline Phosphatase 151 H Total Protein 5.3 L Albumin 2.4 L Urine pH 8.0 H 05/31/19 05/31/19 05/31/19 09:59 12:25 16:27 WBC RBC Hgb Hct RDW Plt Count Seg Neuts % (Manual) Lymphocytes % (Manual) Seg Neutrophils # Man Lymphocytes # (Manual) POC ABG pH 7.249 L 7.296 L 7.327 L POC ABG pCO2 64.0 H POC ABG pO2 373 H 67 L ABG pO2 ABG HCO3 ABG Hemoglobin Sodium Chloride Carbon Dioxide BUN Creatinine Glucose POC Glucose Calcium Alkaline Phosphatase Total Protein Albumin Urine pH 05/31/19 06/01/19 06/01/19 18:12 04:27 05:40 WBC 16.4 H RBC 2.94 L Hgb 8.7 L Hct 27.6 L RDW 20.8 H Plt Count 116 L Seg Neuts % (Manual) Lymphocytes % (Manual) Seg Neutrophils # Man Lymphocytes # (Manual) POC ABG pH POC ABG pCO2 POC ABG pO2 ABG pO2 114.4 H ABG HCO3 28.5 H ABG Hemoglobin 9.6 L Sodium Chloride Carbon Dioxide BUN Creatinine Glucose POC Glucose 129 H Calcium Alkaline Phosphatase Total Protein Albumin Urine pH 06/01/19 06/01/19 06/02/19 05:40 12:23 06:03 WBC 18.6 H RBC 3.37 L Hgb 10.3 L Hct 31.3 L RDW 20.4 H Plt Count 115 L Seg Neuts % (Manual) Lymphocytes % (Manual) Seg Neutrophils # Man Lymphocytes # (Manual) POC ABG pH POC ABG pCO2 POC ABG pO2 ABG pO2 ABG HCO3 ABG Hemoglobin Sodium 147 H Chloride 110.6 H Carbon Dioxide BUN 23 H Creatinine 0.3 L Glucose 112 H POC Glucose 161 H Calcium 7.0 L Alkaline Phosphatase Total Protein Albumin Urine pH 06/02/19 06/03/19 06/03/19 06:03 03:05 03:05 WBC 13.3 H RBC Hgb 11.5 L Hct RDW 20.4 H Plt Count 99 L Seg Neuts % (Manual) Lymphocytes % (Manual) Seg Neutrophils # Man Lymphocytes # (Manual) POC ABG pH POC ABG pCO2 POC ABG pO2 ABG pO2 ABG HCO3 ABG Hemoglobin Sodium Chloride 95.8 L Carbon Dioxide 32 H BUN 24 H 24 H Creatinine 0.4 L 0.4 L Glucose 123 H 61 L POC Glucose Calcium Alkaline Phosphatase Total Protein Albumin Urine pH
--- NOTE | 2019-06-04 15:20 | Progress Note ---
Assessment and Plan Cultures: 05/31 BCx: NGTD 05/31 UCx: 10-100K mixed 05/31 sputum Cx: Normal respiratory tiffany Assessment: 68 y/o male with history of COPD, chronic respiratory failure, N SCLC, history of TB, severe malnutrition, Hx of HAP admitted with respiratory failure: 1. Septic shock secondary to pneumonia - shock resolved, no fever, leukocytosis improving. Initial CXR wit new infiltrate. Has severe baseline lung disease and is thus at high risk for infections. On cefepime. CXR improved. 2. Remote history of latent TB - [facility]. 3. Chronic respiratory failure: worsening now on BIPAP 4. NSCLC - s/p radiation therapy 5. COPD 6. Severe malnutrition 7. Thrombocytopenia: ? cefepime, famotidine ?cancer Recommendations: - Extend cefepime 2g q8h total 7 days. Stop date: 06/06/19 - as worsening resp status - monitor platelets, consider stopping famotidine - Patient made himself DNR Poor prognosis Will follow. Trixie Lim MD Infectious Diseases Senior Web Architect [facility] ([facility]) M [phone] O [phone] Subjective Date of service: 06/04/19 Principal diagnosis: lung ca Interval history: Patient is drowsy, non verbal today on BIPAP, worsening resp status, made DNR, no need for pressors overnight. Objective - Exam Narrative Exam: General appearance: somnolent on BIPAP in mild resp distres Eyes: anicteric sclerae, moist conjunctivae; HENT: Atraumatic; BIPAP Lungs:jen coarse CV: RRR no murmur Abdomen: Soft, non-tender; no masses or hepatosplenomegaly Extremities: no edema, no cyanosis Skin: No rash. +tattoos Psych: somnolent - Constitutional Vitals: Vital Signs Temp Pulse Resp BP Pulse Ox 96.9 F L 110 H 24 102/55 95 06/04/19 12:25 06/04/19 14:31 06/04/19 14:23 06/04/19 14:11 06/04/19 14:11 Temperature -Last 24 Hours Temperature 96.9 F Temperature 97.6 F Temperature 98.4 F Temperature 98.8 F Temperature 99 F - Labs CBC & Chem 7: 06/03/19 03:05 06/03/19 03:05
--- NOTE | 2019-06-04 19:49 | Progress Note ---
Assessment and Plan Assessment and plan: Patient should have discharge planning. We'll consider back to hospice. Prognosis grave. The high probability of a clinically significant, sudden or life threatening deterioration of the [] system(s) required my full and direct attention, intervention and personal management. The aggregate critical care time was [] minutes. This time is in addition to time spent performing reported procedures but includes the following: [x] Data Review and interpretation [x] Patient assessment and monitoring of vital signs [x] Documentation [x] Medication orders and management Total Time Spent with Patient (Minutes): 34 some time 13 min spent with end of life care issues - Patient Problems (1) Acute respiratory distress Current Visit: Yes Status: Acute Plan to address problem: Respiratory stress is evidenced by increased respiratory rate and increased oxygen requirements. Patient is DO NOT RESUSCITATE. We'll add morphine and Ativan for comfort measures only.. Patient's more comfortable. Her Ativan. 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 Patient chronically ill continue nebulizers continue LABA continue steroids when needed. Patient seeks comfort measures only and no longer candidate for any aggressive therapy. Really does not want to be intubated. Toe myself and nursing staff. (3) Cardiac arrest Current Visit: Yes Status: Acute Plan to address problem: Status post cardiac arrest. Most likely secondary to underlying lung disease and hypoxemia. Hypoxemia appears to have resolved. In appropriate for hospice services. (4) Pneumonia Current Visit: Yes Status: Acute Qualifiers: Pneumonia type: due to unspecified organism Laterality: left Lung location: unspecified part of lung Qualified Code(s): J18.9 - Pneumonia, unspecified organism Plan to address problem: Patient off antibiotics today. Sepsis is resolved. Was most likely secondary to pneumonia. Obstruction. Very high risk of developing another pneumonia. Overall prognosis remains grave. (5) Advance care planning Current Visit: No Status: Acute Plan to address problem: Would Wednesday for hospice services not sure hospice patient was on previously. (6) Severe malnutrition Current Visit: No Status: Acute Plan to address problem: Secondary to catabolic state from lung cancer. maycaused too of thrombocytopenia. (7) Lung cancer Current Visit: No Status: Chronic Qualifiers: Laterality: right Lung location: overlapping sites Qualified Code(s): C34.81 - Malignant neoplasm of overlapping sites of right bronchus and lung Plan to address problem: Lim with in NSCLC opacification right lung overall prognosis poor patient was receiving radiation. Not sure if patient is still receiving this for patient is just on hospice at this particular time. We'll proceed with hospice tomorrow. We'll consider inpatient hospice versus intermediate facility with hospice. History Interval history: patient today this morning patient states that he is almost ready to give up the fight. Patient is okay with DO NOT RESUSCITATE. This was signed today. She'll occasionally much more somnolent sleeping comfortable. Hospital course was complicated by increased respiratory rate. Would attempt patient comfortable with morphine and Ativan as needed for end-of-life process. Hospitalist Physical - Constitutional Vitals: Temp Pulse Resp BP Pulse Ox 96.9 F L 111 H 35 H 102/70 93 06/04/19 16:25 06/04/19 19:42 06/04/19 19:42 06/04/19 19:00 06/04/19 19:00 General appearance: Present: no acute distress - EENT ENT: other - Respiratory Respiratory effort: other (labored breathing. Patient has increased respiratory rate consistent with dyspnea.) Respiratory: bilateral: diminished, rhonchi - Cardiovascular Rhythm: other (acute cardiac.) - Extremities Extremities: no ischemia, No edema Extremity abnormal: cyanosis, clubbing Peripheral Pulses: abnormal - Abdominal General gastrointestinal: soft, hypoactive bowel sounds ( with hypoactive bowel sounds.), other (void) - Psychiatric Psychiatric: appropriate mood/affect - Neurologic Neurologic: moves all extremities Results - Labs CBC & Chem 7: 06/03/19 03:05 06/03/19 03:05 Labs: Laboratory Last Values WBC 13.3 K/mm3 (4.5-11.0) H 06/03/19 03:05 RBC 3.80 M/mm3 (3.65-5.03) 06/03/19 03:05 Hgb 11.5 gm/dl (11.8-15.2) L 06/03/19 03:05 Hct 35.8 % (35.5-45.6) 06/03/19 03:05 MCV 94 fl (84-94) 06/03/19 03:05 MCH 30 pg (28-32) 06/03/19 03:05 MCHC 32 % (32-34) 06/03/19 03:05 RDW 20.4 % (13.2-15.2) H 06/03/19 03:05 Plt Count 99 K/mm3 (140-440) L 06/03/19 03:05 Add Manual Diff Complete 05/31/19 09:24 Total Counted 100 05/31/19 09:24 Seg Neutrophils % Table Games Manager 05/31/19 09:24 Seg Neuts % (Manual) 93.0 % (40.0-70.0) H 05/31/19 09:24 0 % 05/31/19 09:24 4.0 % (13.4-35.0) L 05/31/19 09:24 Reactive Lymphs % (Man) 0 % 05/31/19 09:24 2.0 % (0.0-7.3) 05/31/19 09:24 1.0 % (0.0-4.3) 05/31/19 09:24 0 % (0.0-1.8) 05/31/19 09:24 0 % 05/31/19 09:24 0 % 05/31/19 09:24 0 % 05/31/19 09:24 0 % 05/31/19 09:24 Nucleated RBC % Not Reportable 05/31/19 09:24 Seg Neutrophils # Man 26.5 K/mm3 (1.8-7.7) H 05/31/19 09:24 Band Neutrophils # 0.0 K/mm3 05/31/19 09:24 1.1 K/mm3 (1.2-5.4) L 05/31/19 09:24 Abs React Lymphs (Man) 0.0 K/mm3 05/31/19 09:24 0.6 K/mm3 (0.0-0.8) 05/31/19 09:24 0.3 K/mm3 (0.0-0.4) 05/31/19 09:24 0.0 K/mm3 (0.0-0.1) 05/31/19 09:24 0.0 K/mm3 05/31/19 09:24 0.0 K/mm3 05/31/19 09:24 0.0 K/mm3 05/31/19 09:24 Blast Cells # 0.0 K/mm3 05/31/19 09:24 WBC Morphology Not Reportable 05/31/19 09:24 Hypersegmented Neuts Not Reportable 05/31/19 09:24 Hyposegmented Neuts Not Reportable 05/31/19 09:24 Hypogranular Neuts Not Reportable 05/31/19 09:24 Not Reportable 05/31/19 09:24 Not Reportable 05/31/19 09:24 Not Reportable 05/31/19 09:24 Not Reportable 05/31/19 09:24 Not Reportable 05/31/19 09:24 Not Reportable 05/31/19 09:24 Consistent w auto 05/31/19 09:24 Not Reportable 05/31/19 09:24 Plt Clumps, EDTA Not Reportable 05/31/19 09:24 Not Reportable 05/31/19 09:24 Not Reportable 05/31/19 09:24 Not Reportable 05/31/19 09:24 Plt Morphology Comment Not Reportable 05/31/19 09:24 RBC Morphology Not Reportable 05/31/19 09:24 Dimorphic RBCs Not Reportable 05/31/19 09:24 Not Reportable 05/31/19 09:24 Not Reportable 05/31/19 09:24 Not Reportable 05/31/19 09:24 1+ 05/31/19 09:24 Rare 05/31/19 09:24 Not Reportable 05/31/19 09:24 Not Reportable 05/31/19 09:24 Not Reportable 05/31/19 09:24 Not Reportable 05/31/19 09:24 Rare 05/31/19 09:24 Not Reportable 05/31/19 09:24 Not Reportable 05/31/19 09:24 Not Reportable 05/31/19 09:24 Not Reportable 05/31/19 09:24 Not Reportable 05/31/19 09:24 Not Reportable 05/31/19 09:24 Not Reportable 05/31/19 09:24 Not Reportable 05/31/19 09:24 Not Reportable 05/31/19 09:24 Acanthocytes (Spur) Not Reportable 05/31/19 09:24 Rouleaux Not Reportable 05/31/19 09:24 Not Reportable 05/31/19 09:24 Not Reportable 05/31/19 09:24 Not Reportable 05/31/19 09:24 Not Reportable 05/31/19 09:24 Hem Pathologist Commnt No 05/31/19 09:24 POC ABG pH 7.327 (7.35-7.45) L 05/31/19 16:27 ABG pH 7.367 pH Units (7.350-7.450) 06/01/19 04:27 POC ABG pCO2 64.0 (35-45) H 05/31/19 16:27 ABG pCO2 50.8 mm Hg 06/01/19 04:27 POC ABG pO2 67 (80-105) L 05/31/19 16:27 ABG pO2 114.4 mm Hg (80.0-90.0) H 06/01/19 04:27 POC ABG HCO3 33.5 (22-26 mml/L) 05/31/19 16:27 ABG HCO3 28.5 mmol/L (20.0-26.0) H 06/01/19 04:27 POC ABG Total CO2 35 (23-27mmol/L) 05/31/19 16:27 POC ABG O2 Sat 91 05/31/19 16:27 ABG O2 Saturation 98.0 % (95.0-99.0) 06/01/19 04:27 ABG O2 Content 13.1 (0.0-44) 06/01/19 04:27 POC ABG Base Excess 8 ((-2) - (+3)mmol/L) 05/31/19 16:27 ABG Base Excess 2.6 mmol/L (-2.0-3.0) 06/01/19 04:27 ABG Hemoglobin 9.6 gm/dl (14.0-18.0) L 06/01/19 04:27 ABG Carboxyhemoglobin 1.9 % (0.0-5.0) 06/01/19 04:27 ABG Methemoglobin 0.5 % (0.0-1.5) 06/01/19 04:27 95.6 % (95.0-99.0) 06/01/19 04:27 40 % 06/01/19 04:27 Sodium 143 mmol/L (137-145) 06/03/19 03:05 Potassium 4.6 mmol/L (3.6-5.0) 06/03/19 03:05 Chloride 95.8 mmol/L (98-107) L 06/03/19 03:05 Carbon Dioxide 30 mmol/L (22-30) 06/03/19 03:05 22 mmol/L 06/03/19 03:05 BUN 24 mg/dL (9-20) H 06/03/19 03:05 0.4 mg/dL (0.8-1.5) L 06/03/19 03:05 Estimated GFR > 60 ml/min 06/03/19 03:05 60 % 06/03/19 03:05 Glucose 61 mg/dL (75-100) L 06/03/19 03:05 POC Glucose 161 (70-105) H 06/01/19 12:23 Calcium 9.1 mg/dL (8.4-10.2) 06/03/19 03:05 1.00 mg/dL (0.1-1.2) 05/31/19 09:24 AST 22 units/L (5-40) 05/31/19 09:24 ALT 41 units/L (7-56) 05/31/19 09:24 151 units/L (35-129) H 05/31/19 09:24 0.021 ng/mL (0.00-0.029) 05/31/19 09:24 5.3 g/dL (6.3-8.2) L 05/31/19 09:24 2.4 g/dL (3.9-5) L 05/31/19 09:24 0.8 % 05/31/19 09:24 Straw (Yellow) 05/31/19 09:46 Slightly-cloudy (Clear) 05/31/19 09:46 8.0 (5.0-7.0) H 05/31/19 09:46 Ur Specific [place] 1.004 (1.003-1.030) 05/31/19 09:46 <15 mg/dl mg/dL (Negative) 05/31/19 09:46 Neg mg/dL (Negative) 05/31/19 09:46 Neg mg/dL (Negative) 05/31/19 09:46 Sm (Negative) 05/31/19 09:46 Neg (Negative) 05/31/19 09:46 Neg (Negative) 05/31/19 09:46 < 2.0 mg/dL (<2.0) 05/31/19 09:46 Ur Leukocyte Esterase Neg (Negative) 05/31/19 09:46 < 1.0 /HPF (0.0-6.0) 05/31/19 09:46 1.0 /HPF (0.0-6.0) 05/31/19 09:46 U Epithel Cells (Auto) 1.0 /HPF (0-13.0) 05/31/19 09:46 1+ /HPF (Negative) 05/31/19 09:46 Amorphous Crystals 1+ 05/31/19 09:46 Few /HPF 05/31/19 09:46 - Imaging and Cardiology Chest x-ray: report reviewed, image reviewed CT scan - chest: report reviewed, image reviewed Active Medications - Current Medications Current Medications: Generic Name Dose Route Start Last Admin Trade Name Freq PRN Reason Stop Dose Admin Albuterol/Ipratropium 1 ampul 06/01/19 09:45 06/04/19 19:03 Duoneb *Not For Prn Use* IH 1 ampul Q6HRT FRANCISCO JAVIER Administration Budesonide 0.5 mg 06/01/19 09:45 06/04/19 19:03 Pulmicort IH 0.5 mg Q12HRT FRANCISCO JAVIER Administration Famotidine 20 mg 06/01/19 10:00 06/04/19 09:25 Pepcid PO 20 mg BID FRANCISCO JAVIER Administration Heparin Sodium (Porcine) 5,000 unit 05/31/19 22:00 06/04/19 09:26 Heparin SUB-Q 5,000 unit Q12HR FRANCISCO JAVIER Administration Hydrophilic Ointment 1 applic 05/31/19 13:17 Vaseline Lip Therapy TP Q2HR PRN Dry Lips Cefepime HCl 2 gm in 100 mls @ 200 mls/hr 05/31/19 22:00 06/04/19 14:10 Maxipime/Ns 2 Gm/100 Ml IV 200 mls/hr Q8HR FRANCISCO JAVIER Administration Protocol Multi-Ingred Cream/Lotion/Oil/Oint 1 applic 05/31/19 13:17 Artificial Tears Ophth Oint OU Q4HR PRN Dry Eye(s) Nutrition/Malnutrition Assess - Dietary Evaluation Nutrition/Malnutrition Findings: Nutrition Notes Start: 05/31/19 13:59 Freq: Status: Active Protocol: Document 06/04/19 12:20 RM (Rec: 06/04/19 12:28 RM [id number]) Nutrition Notes Initial or Follow up Reassessment Current Diagnosis COPD,Heart Failure Other Pertinent Diagnosis Lung ca, pneumonia, sepsis, sacral pressure ulcer Current Diet Regular Labs/Tests Na 143 Pertinent Medications Reviewed Height 5 ft 7 in Weight 50 kg [place] Body Weight (kg) 67.27 BMI 17.2 Subjective/Other Information Nurse asked advertising copywriter for recommendation d/t pt only drinking juice and refusing to eat. Pt extubated and on high flow oxygen. Pt lethargic at time of visit. Pt stated that his appetite is poor and that he eats very little of his meals. Burn Absent Trauma Absent #2 Nutrition Diagnosis Increased nutrient needs ( specify in comment below) Diagnosis Progress(for reassessment Continues documentation) #1 Nutrition Diagnosis Inadequate oral intake Diagnosis Progress(for reassessment Continues documentation) Is patient on ventilator? No Is Patient Ambulatory and/or Out of Bed No REE-([facility]-confined to bed) 1492.092 Kcal/Kg value to use for calculation 40 Approximate Energy Requirements Using 2000 kcal/Kg Calculation Used for Recommendations Kcal/kg Additional Notes Protein: 60-100g (1.2-2g/kg) Fluids: 1 ml/kcal Nutrition Intervention Change Diet Order: Cardiac Add Supplement/Snack (indicate name/kcal Ensure Enlive BID /protein ) Provides kCal: 700 Provides Protein (gm) 40 Goal #1 Meet at least 80% of calorie and protein needs via PO and ONS intakes Anticipated Discharge Needs: Cardiac diet Follow-Up By: 06/06/19 Additional Comments Follow for PO and ONS intakes
[2019-06-04] MEDS: ATIVAN IV PRN (22:50)
[2019-06-05] MEDS: DUONEB *Not for PRN Use IH SCH ×4 (01:36→20:07)
--- NOTE | 2019-06-05 03:02 | XRay Report ---
CHEST 1 VIEW 06/05/2019 2:05 AM INDICATION / CLINICAL INFORMATION: follow up respiratory failure. COMPARISON: Chest x-ray 06/04/2019 FINDINGS: SUPPORT DEVICES: None. HEART / MEDIASTINUM: No significant abnormality. LUNGS / PLEURA: Complete opacification of right hemithorax, small left pleural effusion and coarse in creased interstitial markings throughout left lung, unchanged. No pneumothorax. ADDITIONAL FINDINGS: No significant additional findings. IMPRESSION: 1. No detrimental change Signer Name: Michele Stover MD Signed: 06/05/2019 2:58 AM Workstation Name: [id number]
[2019-06-05] MEDS: ATIVAN IV PRN ×2 (04:11→10:15)
[2019-06-05] MEDS: PULMICORT IH SCH ×2 (07:30→20:07)
[2019-06-05] MEDS: MAXIPIME/NS 2 GM/100 ML 2 GM/100 ML BAG IV SCH ×3 (07:46→22:00)
[2019-06-05] MEDS: PEPCID PO SCH ×2 (10:16→22:01)
[2019-06-05] MEDS: HEPARIN SUB-Q SCH ×2 (10:16→22:00)
--- NOTE | 2019-06-05 11:30 | Progress Note ---
Assessment and Plan Cultures: 05/31 BCx: NGTD 05/31 UCx: 10-100K mixed 05/31 sputum Cx: Normal respiratory tiffany Assessment: 68 y/o male with history of COPD, chronic respiratory failure, N SCLC, history of TB, severe malnutrition, Hx of HAP admitted with respiratory failure: 1. Septic shock secondary to pneumonia - shock resolved, no fever, leukocytosis improving. Initial CXR wit new infiltrate. Has severe baseline lung disease and is thus at high risk for infections. On cefepime. CXR improved. 2. Remote history of latent TB - [facility]. 3. Chronic respiratory failure: worsening now on BIPAP. Patient made DNR and he was home hospice. 4. NSCLC - s/p radiation therapy 5. COPD 6. Severe malnutrition 7. Thrombocytopenia: ? cefepime, famotidine ?cancer Recommendations: - Extend cefepime 2g q8h total 7 days. Stop date: 06/06/19 - as worsening resp status - monitor platelets, consider stopping famotidine - Patient made himself DNR, no paperwork signed by family for inpatient hosp ice. Poor prognosis Dr Ricky clemons tomorrow. Will follow. Trixie Lim MD Infectious Diseases [facility] M [phone] O [phone] Subjective Date of service: 06/05/19 Principal diagnosis: lung ca Interval history: Patient continues to be drowsy, non verbal on BIPAP, worsening resp status, made DNR, no need for pressors overnight, no fever. Objective - Exam Narrative Exam: General appearance: somnolent non verbal on BIPAP in mild resp distres Eyes: anicteric sclerae, moist conjunctivae; HENT: Atraumatic; BIPAP Lungs:jen coarse CV: RRR no murmur Abdomen: Soft, non-tender; no masses or hepatosplenomegaly Extremities: no edema, no cyanosis Skin: No rash. +tattoos Psych: somnolent - Constitutional Vitals: Vital Signs Temp Pulse Resp BP Pulse Ox 98.4 F 107 H 34 H 93/52 96 06/05/19 08:00 06/05/19 10:23 06/05/19 10:23 06/05/19 10:23 09/02/19 10:23 Temperature -Last 24 Hours Temperature 98.4 F Temperature 99.4 F Temperature 98.8 F Temperature 98.7 F Temperature 96.9 F Temperature 96.9 F - Labs CBC & Chem 7: 06/03/19 03:05 06/03/19 03:05
--- NOTE | 2019-06-05 13:35 | Progress Note ---
Assessment and Plan Assessment and plan: Patient is a 68 yo man with a plethora of severe End-Stage co-morbidities including chronic respiratory failure, severe malnutrition, HAP, right sided NSCLC with complete opacification and trachea deviation of the right lung s/p [address] Garcia, tobacco dependency and prior TB s/p treatment who presented to [facility] ED for his 4th admission this month with extremely respiratory distress, SOB associated with the terminal Lung Cancer. He was just discharged from here on 05/29/19 into home hospice with DNR status that was changed to full code while in [facility] per ED physician. EMS was bagging him into the ED; therefore, he required Intubation. About 15 minutes after Intubation, patient had a cardiac arrest with successful resuscitation after 1 round of Epi and chest compression. He was hypotensive; therefore, central line placed in the femoral artery and Norepinephrine drip was started. Patient self-extubated on 06/01/19, still very confused, in restraints. He is on VM, maintaining his oxygenation. The Femoral line was removed on 06/01/19 when vasopressors weaned off, the varner was removed on 06/01/19 and he has a condom catheter on. He passed the swallow screen and is on a regular diet. Currently today he is yelling out "I am dying" and "I don't want to live because I have cancer." * Jolynn Diehl [phone] (landline) or [phone] (not working anymore)==> patient wanted me to call Jolynn who he stated is his ex-girlfriend; her corrected number is [phone] and I spoke with her. She confirmed that he was DNR and she doesn't know who changed to full code. She doesn't know who made him DNR, she thinks he did. * Sushil, Brother and Willam Rubio is his roommate * Keeley, neighbor [phone] * 2D ECHO limited views: The left chamber size is normal, mild concentric LVH, global left ventricular systolic function is at the lower limit of normal, the estimated eF is 45-50%, there is trace MR, the right heart chambers are both at least moderately dilated, there is at least mild TR, there is evidence of severe pulmonary hypertension, the RVSP is calculated at 65 mmHg, right heart findings suggest cor pulmonale. Acute on chronic hypoxic respiratory due to terminal lung cancer s/p ETT on admission and self extubation on 06/01/19: on VM currently, still in distress Cardiac arrest resolved Septic shock,with shock resolved Acute diastolic heart failure, Cor pulmonale: Medical management Severe pulmonary hypertension: Pulmonology following Sepsis from post-obstructive Pneumonia: continue ABX, ID following Acute metabolic encephalopathy, poa Postobstructive Pneumonia: consulted ID and Pulmonology, treat with abx NSCLC: consulted Heme/Onc Suspected severe malnutrition: consult Team Guide DVT/GI ppx reviewed DNR poor prognosis on 100% FIO2 Bipap Dispo: inpatient Hospice once setup, CCT 32 minutes History Interval history: Patient was seen and examined. Follow-up on current diagnosis of Respiratory failure. No overnight events reported to me. Imaging, nursing note, chart, labs and old chart reviewed. Hospitalist Physical - Physical exam Narrative exam: Gen: thin frail, BMI 17, chronically ill appearing, moderate bs bilateral HEENT: NCAT, ETT in place,sunken adventism muscles, Neck: supple, no adenopathy, no thyromegaly, no JVD CVS/Heart: Regular tachycardia, normal S1S2, pulses present bilaterally Chest/Lungs: bilateral diminished bs but severely reduced right BS, Symmetrical chest expansion, good air entry bilaterally on MV GI/Abdomen: soft, NTND, good bowel sounds, no guarding or rebound /Bladder: no suprapubic tenderness, no CVA or paraspinal tenderness Extermity/Skin: multiple tattoos on chest and left, muscle wasting hypotenar muscles MSK: moving all extremities Neuro: not following commands Psych: anxious - Constitutional Vitals: Temp Pulse Resp BP Pulse Ox 98.3 F 113 H 38 H 94/61 94 06/05/19 12:37 06/05/19 13:22 06/05/19 13:22 06/05/19 13:20 06/05/19 13:20 General appearance: Present: no acute distress Results - Labs CBC & Chem 7: 06/03/19 03:05 06/03/19 03:05 Labs: Laboratory Last Values WBC 13.3 K/mm3 (4.5-11.0) H 06/03/19 03:05 RBC 3.80 M/mm3 (3.65-5.03) 06/03/19 03:05 Hgb 11.5 gm/dl (11.8-15.2) L 06/03/19 03:05 Hct 35.8 % (35.5-45.6) 06/03/19 03:05 MCV 94 fl (84-94) 06/03/19 03:05 MCH 30 pg (28-32) 06/03/19 03:05 MCHC 32 % (32-34) 06/03/19 03:05 RDW 20.4 % (13.2-15.2) H 06/03/19 03:05 Plt Count 99 K/mm3 (140-440) L 06/03/19 03:05 Add Manual Diff Complete 05/31/19 09:24 Total Counted 100 05/31/19 09:24 Seg Neutrophils % Motor Electrician 05/31/19 09:24 Seg Neuts % (Manual) 93.0 % (40.0-70.0) H 05/31/19 09:24 0 % 05/31/19 09:24 4.0 % (13.4-35.0) L 05/31/19 09:24 Reactive Lymphs % (Man) 0 % 05/31/19 09:24 2.0 % (0.0-7.3) 05/31/19 09:24 1.0 % (0.0-4.3) 05/31/19 09:24 0 % (0.0-1.8) 05/31/19 09:24 0 % 05/31/19 09:24 0 % 05/31/19 09:24 0 % 05/31/19 09:24 0 % 05/31/19 09:24 Nucleated RBC % Not Reportable 05/31/19 09:24 Seg Neutrophils # Man 26.5 K/mm3 (1.8-7.7) H 05/31/19 09:24 Band Neutrophils # 0.0 K/mm3 05/31/19 09:24 1.1 K/mm3 (1.2-5.4) L 05/31/19 09:24 Abs React Lymphs (Man) 0.0 K/mm3 05/31/19 09:24 0.6 K/mm3 (0.0-0.8) 05/31/19 09:24 0.3 K/mm3 (0.0-0.4) 05/31/19 09:24 0.0 K/mm3 (0.0-0.1) 05/31/19 09:24 0.0 K/mm3 05/31/19 09:24 0.0 K/mm3 05/31/19 09:24 0.0 K/mm3 05/31/19 09:24 Blast Cells # 0.0 K/mm3 05/31/19 09:24 WBC Morphology Not Reportable 05/31/19 09:24 Hypersegmented Neuts Not Reportable 05/31/19 09:24 Hyposegmented Neuts Not Reportable 05/31/19 09:24 Hypogranular Neuts Not Reportable 05/31/19 09:24 Not Reportable 05/31/19 09:24 Not Reportable 05/31/19 09:24 Not Reportable 05/31/19 09:24 Not Reportable 05/31/19 09:24 Not Reportable 05/31/19 09:24 Not Reportable 05/31/19 09:24 Consistent w auto 05/31/19 09:24 Not Reportable 05/31/19 09:24 Plt Clumps, EDTA Not Reportable 05/31/19 09:24 Not Reportable 05/31/19 09:24 Not Reportable 05/31/19 09:24 Not Reportable 05/31/19 09:24 Plt Morphology Comment Not Reportable 05/31/19 09:24 RBC Morphology Not Reportable 05/31/19 09:24 Dimorphic RBCs Not Reportable 05/31/19 09:24 Not Reportable 05/31/19 09:24 Not Reportable 05/31/19 09:24 Not Reportable 05/31/19 09:24 1+ 05/31/19 09:24 Rare 05/31/19 09:24 Not Reportable 05/31/19 09:24 Not Reportable 05/31/19 09:24 Not Reportable 05/31/19 09:24 Not Reportable 05/31/19 09:24 Rare 05/31/19 09:24 Not Reportable 05/31/19 09:24 Not Reportable 05/31/19 09:24 Not Reportable 05/31/19 09:24 Not Reportable 05/31/19 09:24 Not Reportable 05/31/19 09:24 Not Reportable 05/31/19 09:24 Not Reportable 05/31/19 09:24 Not Reportable 05/31/19 09:24 Not Reportable 05/31/19 09:24 Acanthocytes (Spur) Not Reportable 05/31/19 09:24 Rouleaux Not Reportable 05/31/19 09:24 Not Reportable 05/31/19 09:24 Not Reportable 05/31/19 09:24 Not Reportable 05/31/19 09:24 Not Reportable 05/31/19 09:24 Hem Pathologist Commnt No 05/31/19 09:24 POC ABG pH 7.327 (7.35-7.45) L 05/31/19 16:27 ABG pH 7.367 pH Units (7.350-7.450) 06/01/19 04:27 POC ABG pCO2 64.0 (35-45) H 05/31/19 16:27 ABG pCO2 50.8 mm Hg 06/01/19 04:27 POC ABG pO2 67 (80-105) L 05/31/19 16:27 ABG pO2 114.4 mm Hg (80.0-90.0) H 06/01/19 04:27 POC ABG HCO3 33.5 (22-26 mml/L) 05/31/19 16:27 ABG HCO3 28.5 mmol/L (20.0-26.0) H 06/01/19 04:27 POC ABG Total CO2 35 (23-27mmol/L) 05/31/19 16:27 POC ABG O2 Sat 91 05/31/19 16:27 ABG O2 Saturation 98.0 % (95.0-99.0) 06/01/19 04:27 ABG O2 Content 13.1 (0.0-44) 06/01/19 04:27 POC ABG Base Excess 8 ((-2) - (+3)mmol/L) 05/31/19 16:27 ABG Base Excess 2.6 mmol/L (-2.0-3.0) 06/01/19 04:27 ABG Hemoglobin 9.6 gm/dl (14.0-18.0) L 06/01/19 04:27 ABG Carboxyhemoglobin 1.9 % (0.0-5.0) 06/01/19 04:27 ABG Methemoglobin 0.5 % (0.0-1.5) 06/01/19 04:27 95.6 % (95.0-99.0) 06/01/19 04:27 40 % 06/01/19 04:27 Sodium 143 mmol/L (137-145) 06/03/19 03:05 Potassium 4.6 mmol/L (3.6-5.0) 06/03/19 03:05 Chloride 95.8 mmol/L (98-107) L 06/03/19 03:05 Carbon Dioxide 30 mmol/L (22-30) 06/03/19 03:05 22 mmol/L 06/03/19 03:05 BUN 24 mg/dL (9-20) H 06/03/19 03:05 0.4 mg/dL (0.8-1.5) L 06/03/19 03:05 Estimated GFR > 60 ml/min 06/03/19 03:05 60 % 06/03/19 03:05 Glucose 61 mg/dL (75-100) L 06/03/19 03:05 POC Glucose 161 (70-105) H 06/01/19 12:23 Calcium 9.1 mg/dL (8.4-10.2) 06/03/19 03:05 1.00 mg/dL (0.1-1.2) 05/31/19 09:24 AST 22 units/L (5-40) 05/31/19 09:24 ALT 41 units/L (7-56) 05/31/19 09:24 151 units/L (35-129) H 05/31/19 09:24 0.021 ng/mL (0.00-0.029) 05/31/19 09:24 5.3 g/dL (6.3-8.2) L 05/31/19 09:24 2.4 g/dL (3.9-5) L 05/31/19 09:24 0.8 % 05/31/19 09:24 Straw (Yellow) 05/31/19 09:46 Slightly-cloudy (Clear) 05/31/19 09:46 8.0 (5.0-7.0) H 05/31/19 09:46 Ur Specific [place] 1.004 (1.003-1.030) 05/31/19 09:46 <15 mg/dl mg/dL (Negative) 05/31/19 09:46 Neg mg/dL (Negative) 05/31/19 09:46 Neg mg/dL (Negative) 05/31/19 09:46 Sm (Negative) 05/31/19 09:46 Neg (Negative) 05/31/19 09:46 Neg (Negative) 05/31/19 09:46 < 2.0 mg/dL (<2.0) 05/31/19 09:46 Ur Leukocyte Esterase Neg (Negative) 05/31/19 09:46 < 1.0 /HPF (0.0-6.0) 05/31/19 09:46 1.0 /HPF (0.0-6.0) 05/31/19 09:46 U Epithel Cells (Auto) 1.0 /HPF (0-13.0) 05/31/19 09:46 1+ /HPF (Negative) 05/31/19 09:46 Amorphous Crystals 1+ 05/31/19 09:46 Few /HPF 05/31/19 09:46 Active Medications - Current Medications Current Medications: Generic Name Dose Route Start Last Admin Trade Name Freq PRN Reason Stop Dose Admin Albuterol/Ipratropium 1 ampul 06/01/19 09:45 06/05/19 13:21 Duoneb *Not For Prn Use* IH 1 ampul Q6HRT FRANCISCO JAVIER Administration Budesonide 0.5 mg 06/01/19 09:45 06/05/19 07:30 Pulmicort IH 0.5 mg Q12HRT FRANCISCO JAVIER Administration Famotidine 20 mg 06/01/19 10:00 06/05/19 10:16 Pepcid PO Not Given BID FRANCISCO JAVIER Heparin Sodium (Porcine) 5,000 unit 05/31/19 22:00 06/05/19 10:16 Heparin SUB-Q 5,000 unit Q12HR FRANCISCO JAVIER Administration Hydrophilic Ointment 1 applic 05/31/19 13:17 Vaseline Lip Therapy TP Q2HR PRN Dry Lips Cefepime HCl 2 gm in 100 mls @ 200 mls/hr 05/31/19 22:00 06/05/19 07:46 Maxipime/Ns 2 Gm/100 Ml IV Not Given Q8HR [facility] Protocol Lorazepam 1 mg 06/04/19 22:38 06/05/19 10:15 Ativan IV 1 mg Q4H PRN Administration Agitation Multi-Ingred Cream/Lotion/Oil/Oint 1 applic 05/31/19 13:17 Artificial Tears Ophth Oint OU Q4HR PRN Dry Eye(s) Nutrition/Malnutrition Assess - Dietary Evaluation Nutrition/Malnutrition Findings: Nutrition Notes Start: 05/31/19 13:59 Freq: Status: Active Protocol: Document 06/04/19 12:20 RM (Rec: 06/04/19 12:28 RM [id number]) Nutrition Notes Initial or Follow up Reassessment Current Diagnosis COPD,Heart Failure Other Pertinent Diagnosis Lung ca, pneumonia, sepsis, sacral pressure ulcer Current Diet Regular Labs/Tests Na 143 Pertinent Medications Reviewed Height 5 ft 7 in Weight 50 kg [place] Body Weight (kg) 67.27 BMI 17.2 Subjective/Other Information Nurse asked group underwriter for recommendation d/t pt only drinking juice and refusing to eat. Pt extubated and on high flow oxygen. Pt lethargic at time of visit. Pt stated that his appetite is poor and that he eats very little of his meals. Burn Absent Trauma Absent #2 Nutrition Diagnosis Increased nutrient needs ( specify in comment below) Diagnosis Progress(for reassessment Continues documentation) #1 Nutrition Diagnosis Inadequate oral intake Diagnosis Progress(for reassessment Continues documentation) Is patient on ventilator? No Is Patient Ambulatory and/or Out of Bed No REE-([place]-confined to bed) 1492.092 Kcal/Kg value to use for calculation 40 Approximate Energy Requirements Using 2000 kcal/Kg Calculation Used for Recommendations Kcal/kg Additional Notes Protein: 60-100g (1.2-2g/kg) Fluids: 1 ml/kcal Nutrition Intervention Change Diet Order: Cardiac Add Supplement/Snack (indicate name/kcal Ensure Enlive BID /protein ) Provides kCal: 700 Provides Protein (gm) 40 Goal #1 Meet at least 80% of calorie and protein needs via PO and ONS intakes Anticipated Discharge Needs: Cardiac diet Follow-Up By: 06/06/19 Additional Comments Follow for PO and ONS intakes
[2019-06-05] MEDS ORDERED: NACL 0.9% 250ML 250 ML IV ONE ×2 (15:15→16:28)
[2019-06-05] MEDS: D5NS 1,000 ML IV SCH (15:22)
--- NOTE | 2019-06-05 15:57 | Progress Note ---
Assessment and Plan Acute on chronic hypoxic respiratory due to terminal lung cancer s/p ETT on admission and self extubation on 06/01/19: Cardiac arrest resolved Septic shock,with shock resolved Acute diastolic heart failure, Cor pulmonale Severe pulmonary hypertension Sepsis from post-obstructive Pneumonia Acute metabolic encephalopathy, poa Postobstructive Pneumonia NSCLC Severe malnutrition -Continue supplemental oxygen to keep O2 sats>90%, increase flow and FIO2- discussed with RT -Nocturnal NIPPV support, and prn during the day for work of breathing -Gentle IV fluids for treatment of hypotension -Stress ulcer prophylaxis -Accuchecks with glycemic control -VTE prophylaxis -Bronchodilators -PT/OT to evaluate and treat -Pain management and supportive care -Complete Cefepime per ID recommendations He is agreeable to BIPAP support. Code status: DNAR Will discuss ith case management in the morning, re inpatient hospice Subjective Date of service: 06/05/19 Principal diagnosis: lung ca Interval history: Patient is seen today for: acute and chronic respiratory failure, s/p self-extubation; NSCLC; Right lung hemiopacification; Left lung new infiltrate Seen and examined at bedside; 24hour events reviewed; nursing and respiratory care staff consulted; no adverse overnight events reported to me- No fevers, no nausea, no vomiting. Respiratory status and hemodynamic deteriorating. Now episodes of hypotension and not eating much Vitals, labs, medications, chart and imaging reviewed. Objective - Exam Narrative Exam: Constitutional: No distress, cachectic. Head, Ears, Nose: Normocephalic, atraumatic. External ears, nose normal ON BIPAP Cardiovascular: S1, S2 normal. Respiratory: Absent breath sounds on R,poor AE left lung GI: Soft, non-tender; bowel sounds normal. No peritoneal signs. Musculoskeletal: No pedal edema, no cyanosis. Skin: No rash or abscess Hem/Lymphatic: No palpable cervical or supraclavicular nodes. No lymphangitis Neurological: Moves spontaneously. Vital Signs - 12hr 06/05/19 06/05/19 06/05/19 04:01 04:11 04:21 Temperature Pulse Rate 112 H 111 H 108 H Pulse Rate [ Bilateral Throughout] Pulse Rate [ From Monitor] Respiratory 38 H 31 H 30 H Rate Respiratory Rate [Bilateral Throughout] Blood Pressure 81/59 82/61 82/61 O2 Sat by Pulse 100 100 100 Oximetry 06/05/19 06/05/1919 04:31 04:36 04:41 Temperature Pulse Rate 109 H 109 H Pulse Rate [ Bilateral Throughout] Pulse Rate [ 109 H From Monitor] Respiratory 31 H 25 H 31 H Rate Respiratory Rate [Bilateral Throughout] Blood Pressure 82/61 82/61 O2 Sat by Pulse 100 90 100 Oximetry 06/05/19 06/05/19 06/05/19 04:51 05:00 05:11 Temperature Pulse Rate 108 H 108 H 108 H Pulse Rate [ Bilateral Throughout] Pulse Rate [ From Monitor] Respiratory 30 H 29 H 29 H Rate Respiratory Rate [Bilateral Throughout] Blood Pressure 82/61 73/49 73/49 O2 Sat by Pulse 100 100 100 Oximetry 06/05/19 06/05/19 06/05/19 05:21 05:31 05:41 Temperature Pulse Rate 108 H 107 H 107 H Pulse Rate [ Bilateral Throughout] Pulse Rate [ From Monitor] Respiratory 30 H 29 H 28 H Rate Respiratory Rate [Bilateral Throughout] Blood Pressure 73/49 73/49 73/49 O2 Sat by Pulse 100 100 100 Oximetry 06/05/19 06/05/19 06/05/19 05:51 06:00 06:11 Temperature Pulse Rate 107 H 107 H 107 H Pulse Rate [ Bilateral Throughout] Pulse Rate [ From Monitor] Respiratory 30 H 31 H 29 H Rate Respiratory Rate [Bilateral Throughout] Blood Pressure 73/49 78/52 78/52 O2 Sat by Pulse 100 100 100 Oximetry 06/05/19 06/05/19 06/05/19 06:21 06:31 06:41 Temperature Pulse Rate 107 H 107 H 107 H Pulse Rate [ Bilateral Throughout] Pulse Rate [ From Monitor] Respiratory 30 H 28 H 25 H Rate Respiratory Rate [Bilateral Throughout] Blood Pressure 78/52 78/52 78/52 O2 Sat by Pulse 100 100 100 Oximetry 06/05/19 06/05/19 06/05/19 06:51 07:00 07:11 Temperature Pulse Rate 107 H 107 H 107 H Pulse Rate [ Bilateral Throughout] Pulse Rate [ From Monitor] Respiratory 31 H 28 H 27 H Rate Respiratory Rate [Bilateral Throughout] Blood Pressure 78/52 79/53 87/54 O2 Sat by Pulse 100 100 100 Oximetry 06/05/19 06/05/19 06/05/19 07:21 07:26 07:30 Temperature Pulse Rate 107 H 107 H Pulse Rate [ 107 H Bilateral Throughout] Pulse Rate [ From Monitor] Respiratory 27 H 27 H Rate Respiratory 26 H Rate [Bilateral Throughout] Blood Pressure 87/54 87/54 O2 Sat by Pulse 100 100 Oximetry 06/05/19 06/05/19 06/05/19 07:31 07:32 07:41 Temperature Pulse Rate 107 H 107 H 107 H Pulse Rate [ Bilateral Throughout] Pulse Rate [ From Monitor] Respiratory 28 H 26 H Rate Respiratory Rate [Bilateral Throughout] Blood Pressure 87/54 87/54 87/54 O2 Sat by Pulse 100 100 100 Oximetry 06/05/19 06/05/19 06/05/19 07:50 07:56 08:00 Temperature 98.4 F Pulse Rate 107 H 107 H Pulse Rate [ Bilateral Throughout] Pulse Rate [ From Monitor] Respiratory 28 H 24 Rate Respiratory Rate [Bilateral Throughout] Blood Pressure 87/54 82/54 O2 Sat by Pulse 100 100 100 Oximetry 06/05/19 06/05/19 06/05/19 08:11 08:21 08:31 Temperature Pulse Rate 107 H 107 H 107 H Pulse Rate [ Bilateral Throughout] Pulse Rate [ From Monitor] Respiratory 34 H 25 H 26 H Rate Respiratory Rate [Bilateral Throughout] Blood Pressure 82/54 82/54 82/54 O2 Sat by Pulse 100 100 100 Oximetry 06/05/19 06/05/19 06/05/19 08:41 08:51 08:53 Temperature Pulse Rate 107 H 108 H Pulse Rate [ Bilateral Throughout] Pulse Rate [ 60 From Monitor] Respiratory 15 25 H Rate Respiratory Rate [Bilateral Throughout] Blood Pressure 82/54 82/54 O2 Sat by Pulse 100 100 100 Oximetry 06/05/19 06/05/19 06/05/19 08:59 09:00 09:11 Temperature Pulse Rate 107 H 108 H 108 H Pulse Rate [ Bilateral Throughout] Pulse Rate [ From Monitor] Respiratory 21 26 H Rate Respiratory Rate [Bilateral Throughout] Blood Pressure 82/54 91/62 91/62 O2 Sat by Pulse 100 100 100 Oximetry 06/05/19 06/05/19 06/05/19 09:21 09:31 09:41 Temperature Pulse Rate 110 H 110 H 112 H Pulse Rate [ Bilateral Throughout] Pulse Rate [ From Monitor] Respiratory 22 38 H 24 Rate Respiratory Rate [Bilateral Throughout] Blood Pressure 91/62 91/62 91/62 O2 Sat by Pulse 100 100 98 Oximetry 09/11/2206/05/19 06/05/19 09:51 10:00 10:11 Temperature Pulse Rate 111 H 102 H 113 H Pulse Rate [ Bilateral Throughout] Pulse Rate [ From Monitor] Respiratory 33 H 20 37 H Rate Respiratory Rate [Bilateral Throughout] Blood Pressure 91/62 93/52 93/52 O2 Sat by Pulse 88 Oximetry 06/05/19 06/05/19 06/05/19 10:21 10:23 10:31 Temperature Pulse Rate 110 H 107 H 108 H Pulse Rate [ Bilateral Throughout] Pulse Rate [ From Monitor] Respiratory 22 34 H 35 H Rate Respiratory Rate [Bilateral Throughout] Blood Pressure 93/52 93/52 93/52 O2 Sat by Pulse 99 96 93 Oximetry 06/05/19 06/05/19 06/05/19 10:41 10:51 11:00 Temperature Pulse Rate 105 H 106 H 107 H Pulse Rate [ Bilateral Throughout] Pulse Rate [ From Monitor] Respiratory 37 H 33 H 33 H Rate Respiratory Rate [Bilateral Throughout] Blood Pressure 93/52 93/52 82/48 O2 Sat by Pulse 90 91 92 Oximetry 06/05/19 06/05/19 06/05/19 11:11 11:21 11:30 Temperature Pulse Rate 111 H 110 H 107 H Pulse Rate [ Bilateral Throughout] Pulse Rate [ From Monitor] Respiratory 36 H 33 H 33 H Rate Respiratory Rate [Bilateral Throughout] Blood Pressure 82/48 82/48 82/48 O2 Sat by Pulse 97 97 95 Oximetry 06/05/19 06/05/19 06/05/19 11:40 11:50 12:00 Temperature Pulse Rate 107 H 109 H 111 H Pulse Rate [ Bilateral Throughout] Pulse Rate [ From Monitor] Respiratory 36 H 36 H 39 H Rate Respiratory Rate [Bilateral Throughout] Blood Pressure 82/48 82/48 90/57 O2 Sat by Pulse 97 97 97 Oximetry 06/05/19 06/05/19 06/05/19 12:10 12:20 12:30 Temperature Pulse Rate 111 H 109 H 113 H Pulse Rate [ Bilateral Throughout] Pulse Rate [ From Monitor] Respiratory 40 H 34 H 13 Rate Respiratory Rate [Bilateral Throughout] Blood Pressure 90/57 90/57 90/57 O2 Sat by Pulse 97 97 99 Oximetry 06/05/19 06/05/19 06/05/19 12:37 12:40 12:50 Temperature 98.3 F Pulse Rate 113 H 113 H Pulse Rate [ Bilateral Throughout] Pulse Rate [ From Monitor] Respiratory 17 36 H Rate Respiratory Rate [Bilateral Throughout] Blood Pressure 90/57 90/57 O2 Sat by Pulse 98 98 Oximetry 06/05/19 06/05/19 06/05/19 13:00 13:10 13:20 Temperature Pulse Rate 114 H 113 H 113 H Pulse Rate [ Bilateral Throughout] Pulse Rate [ From Monitor] Respiratory 41 H 37 H 49 H Rate Respiratory Rate [Bilateral Throughout] Blood Pressure 94/61 94/61 94/61 O2 Sat by Pulse 97 95 94 Oximetry 06/05/19 06/05/19 06/05/19 13:22 13:30 13:40 Temperature Pulse Rate 112 H 114 H Pulse Rate [ 113 H Bilateral Throughout] Pulse Rate [ From Monitor] Respiratory 34 H 39 H Rate Respiratory 38 H Rate [Bilateral Throughout] Blood Pressure 94/61 94/61 O2 Sat by Pulse 98 99 Oximetry 06/05/19 06/05/19 06/05/19 13:50 14:00 14:10 Temperature Pulse Rate 116 H 115 H 114 H Pulse Rate [ Bilateral Throughout] Pulse Rate [ From Monitor] Respiratory 19 31 H 20 Rate Respiratory Rate [Bilateral Throughout] Blood Pressure 94/61 90/56 90/56 O2 Sat by Pulse 99 99 96 Oximetry 06/05/19 06/05/19 06/05/19 14:20 14:30 14:40 Temperature Pulse Rate 107 H 73 113 H Pulse Rate [ Bilateral Throughout] Pulse Rate [ From Monitor] Respiratory 27 H 24 44 H Rate Respiratory Rate [Bilateral Throughout] Blood Pressure 90/56 O2 Sat by Pulse 91 88 85 Oximetry 06/05/19 06/05/19 06/05/19 14:50 15:00 15:10 Temperature Pulse Rate 116 H 118 H 116 H Pulse Rate [ Bilateral Throughout] Pulse Rate [ From Monitor] Respiratory 40 H 41 H 39 H Rate Respiratory Rate [Bilateral Throughout] Blood Pressure 90/56 74/49 76/43 O2 Sat by Pulse 97 Oximetry CBC and BMP: 06/05/19 15:00 06/03/19 03:05 ABG, PT/INR, D-dimer: ABG POC ABG pH 7.327 (7.35-7.45) L 05/31/19 16:27 ABG pH 7.367 pH Units (7.350-7.450) 06/01/19 04:27 POC ABG pCO2 64.0 (35-45) H 05/31/19 16:27 ABG pCO2 50.8 mm Hg 06/01/19 04:27 POC ABG pO2 67 (80-105) L 05/31/19 16:27 ABG pO2 114.4 mm Hg (80.0-90.0) H 06/01/19 04:27 POC ABG HCO3 33.5 (22-26 mml/L) 05/31/19 16:27 POC ABG Total CO2 35 (23-27mmol/L) 05/31/19 16:27 POC ABG O2 Sat 91 05/31/19 16:27 ABG O2 Saturation 98.0 % (95.0-99.0) 06/01/19 04:27 Abnormal lab findings: Abnormal Labs 05/31/19 05/31/19 05/31/19 09:24 09:24 09:46 WBC 28.5 H RBC 3.46 L Hgb 10.4 L Hct 31.6 L RDW 19.9 H Plt Count Seg Neuts % (Manual) 93.0 H Lymphocytes % (Manual) 4.0 L Seg Neutrophils # Man 26.5 H Lymphocytes # (Manual) 1.1 L POC ABG pH POC ABG pCO2 POC ABG pO2 ABG pO2 ABG HCO3 ABG Hemoglobin Sodium Chloride 94.9 L Carbon Dioxide 37 H BUN Creatinine 0.3 L Glucose POC Glucose Calcium 8.2 L Alkaline Phosphatase 151 H Total Protein 5.3 L Albumin 2.4 L Urine pH 8.0 H 05/31/19 05/31/19 05/31/19 09:59 12:25 16:27 WBC RBC Hgb Hct RDW Plt Count Seg Neuts % (Manual) Lymphocytes % (Manual) Seg Neutrophils # Man Lymphocytes # (Manual) POC ABG pH 7.249 L 7.296 L 7.327 L POC ABG pCO2 64.0 H POC ABG pO2 373 H 67 L ABG pO2 ABG HCO3 ABG Hemoglobin Sodium Chloride Carbon Dioxide BUN Creatinine Glucose POC Glucose Calcium Alkaline Phosphatase Total Protein Albumin Urine pH 05/31/19 06/01/19 06/01/19 18:12 04:27 05:40 WBC 16.4 H RBC 2.94 L Hgb 8.7 L Hct 27.6 L RDW 20.8 H Plt Count 116 L Seg Neuts % (Manual) Lymphocytes % (Manual) Seg Neutrophils # Man Lymphocytes # (Manual) POC ABG pH POC ABG pCO2 POC ABG pO2 ABG pO2 114.4 H ABG HCO3 28.5 H ABG Hemoglobin 9.6 L Sodium Chloride Carbon Dioxide BUN Creatinine Glucose POC Glucose 129 H Calcium Alkaline Phosphatase Total Protein Albumin Urine pH 06/01/19 06/01/19 06/02/19 05:40 12:23 06:03 WBC 18.6 H RBC 3.37 L Hgb 10.3 L Hct 31.3 L RDW 20.4 H Plt Count 115 L Seg Neuts % (Manual) Lymphocytes % (Manual) Seg Neutrophils # Man Lymphocytes # (Manual) POC ABG pH POC ABG pCO2 POC ABG pO2 ABG pO2 ABG HCO3 ABG Hemoglobin Sodium 147 H Chloride 110.6 H Carbon Dioxide BUN 23 H Creatinine 0.3 L Glucose 112 H POC Glucose 161 H Calcium 7.0 L Alkaline Phosphatase Total Protein Albumin Urine pH 06/02/19 06/03/19 06/03/19 06:03 03:05 03:05 WBC 13.3 H RBC Hgb 11.5 L Hct RDW 20.4 H Plt Count 99 L Seg Neuts % (Manual) Lymphocytes % (Manual) Seg Neutrophils # Man Lymphocytes # (Manual) POC ABG pH POC ABG pCO2 POC ABG pO2 ABG pO2 ABG HCO3 ABG Hemoglobin Sodium Chloride 95.8 L Carbon Dioxide 32 H BUN 24 H 24 H Creatinine 0.4 L 0.4 L Glucose 123 H 61 L POC Glucose Calcium Alkaline Phosphatase Total Protein Albumin Urine pH 06/05/19 15:00 WBC RBC Hgb Hct RDW Plt Count 132 L Seg Neuts % (Manual) Lymphocytes % (Manual) Seg Neutrophils # Man Lymphocytes # (Manual) POC ABG pH POC ABG pCO2 POC ABG pO2 ABG pO2 ABG HCO3 ABG Hemoglobin Sodium Chloride Carbon Dioxide BUN Creatinine Glucose POC Glucose Calcium Alkaline Phosphatase Total Protein Albumin Urine pH
[2019-06-06] MEDS: DUONEB *Not for PRN Use IH SCH ×3 (02:10→14:03)
[2019-06-06] MEDS: PULMICORT IH SCH (07:21)
[2019-06-06] MEDS: MAXIPIME/NS 2 GM/100 ML 2 GM/100 ML BAG IV SCH ×2 (07:59→13:02)
--- NOTE | 2019-06-06 09:47 | Progress Note ---
Assessment and Plan Acute on chronic hypoxic respiratory due to terminal lung cancer s/p ETT on admission and self extubation on 06/01/19: Cardiac arrest resolved Septic shock,with shock resolved Acute diastolic heart failure, Cor pulmonale Severe pulmonary hypertension Sepsis from post-obstructive Pneumonia Acute metabolic encephalopathy, poa Postobstructive Pneumonia NSCLC Severe malnutrition Now hypotensive, minimally responsive. Apparently canot go into home or in patient hospice Actively dying. Supportive care -Continue supplemental oxygen to keep O2 sats>90%, increase flow and FIO2- discussed with RT -NIPPV support -Stress ulcer prophylaxis -VTE prophylaxis -Bronchodilators -Pain management and supportive care -Complete Cefepime per ID recommendations Code status: DNAR Subjective Date of service: 06/06/19 Principal diagnosis: lung ca Interval history: Patient is seen today for: acute and chronic respiratory failure, s/p self- extubation; NSCLC; Right lung hemiopacification; Left lung new infiltrate Seen and examined at bedside; 24hour events reviewed; nursing and respiratory care staff consulted; no adverse overnight events reported to me- No fevers, no nausea, no vomiting. remains on continuous BIPAP, less responsive Blood pressure within acceptable limits Objective - Exam Narrative Exam: Constitutional: No distress, cachectic. Head, Ears, Nose: Normocephalic, atraumatic. External ears, nose normal ON BIPAP Cardiovascular: S1, S2 normal. Respiratory: Absent breath sounds on R,poor AE left lung GI: Soft, non-tender; bowel sounds normal. No peritoneal signs. Musculoskeletal: No pedal edema, no cyanosis. Skin: No rash or abscess Hem/Lymphatic: No palpable cervical or supraclavicular nodes. No lymphangitis Neurological: Moves spontaneously. Vital Signs - 12hr 06/05/19 06/05/19 06/05/19 21:50 22:00 22:10 Temperature Pulse Rate 111 H 111 H 112 H Pulse Rate [ Anterior Bilateral Throughout] Pulse Rate [ Bilateral Throughout] Pulse Rate [ From Monitor] Respiratory 39 H 38 H 46 H Rate Respiratory Rate [Anterior Bilateral Throughout] Respiratory Rate [Bilateral Throughout] Blood Pressure 83/57 88/61 88/61 O2 Sat by Pulse 99 100 Oximetry 06/05/19 06/05/19 06/05/19 22:20 22:30 22:40 Temperature Pulse Rate 109 H 110 H 111 H Pulse Rate [ Anterior Bilateral Throughout] Pulse Rate [ Bilateral Throughout] Pulse Rate [ From Monitor] Respiratory 38 H 39 H 29 H Rate Respiratory Rate [Anterior Bilateral Throughout] Respiratory Rate [Bilateral Throughout] Blood Pressure 88/61 88/61 88/61 O2 Sat by Pulse 100 99 99 Oximetry 06/05/19 06/05/19 06/05/19 22:50 23:00 23:10 Temperature Pulse Rate 111 H 112 H 112 H Pulse Rate [ Anterior Bilateral Throughout] Pulse Rate [ Bilateral Throughout] Pulse Rate [ From Monitor] Respiratory 39 H 37 H 21 Rate Respiratory Rate [Anterior Bilateral Throughout] Respiratory Rate [Bilateral Throughout] Blood Pressure 88/61 87/58 87/58 O2 Sat by Pulse 99 98 Oximetry 06/05/19 06/05/19 06/05/19 23:14 23:20 23:28 Temperature 98.9 F Pulse Rate 112 H 110 H Pulse Rate [ Anterior Bilateral Throughout] Pulse Rate [ Bilateral Throughout] Pulse Rate [ From Monitor] Respiratory 33 H 30 H Rate Respiratory Rate [Anterior Bilateral Throughout] Respiratory Rate [Bilateral Throughout] Blood Pressure 87/58 87/58 O2 Sat by Pulse 99 99 Oximetry 06/05/19 06/05/19 06/05/19 23:30 23:40 23:50 Temperature Pulse Rate 109 H 110 H 111 H Pulse Rate [ Anterior Bilateral Throughout] Pulse Rate [ Bilateral Throughout] Pulse Rate [ From Monitor] Respiratory 29 H 45 H 37 H Rate Respiratory Rate [Anterior Bilateral Throughout] Respiratory Rate [Bilateral Throughout] Blood Pressure 87/58 87/58 87/58 O2 Sat by Pulse 99 99 99 Oximetry 06/06/19 06/06/19 06/06/19 00:00 00:10 00:13 Temperature Pulse Rate 112 H 112 H 110 H Pulse Rate [ Anterior Bilateral Throughout] Pulse Rate [ Bilateral Throughout] Pulse Rate [ From Monitor] Respiratory 40 H 37 H 31 H Rate Respiratory Rate [Anterior Bilateral Throughout] Respiratory Rate [Bilateral Throughout] Blood Pressure 95/62 95/62 102/68 O2 Sat by Pulse 99 98 98 Oximetry 06/06/19 06/06/19 06/06/19 00:20 00:30 00:40 Temperature Pulse Rate 113 H 112 H 111 H Pulse Rate [ Anterior Bilateral Throughout] Pulse Rate [ Bilateral Throughout] Pulse Rate [ From Monitor] Respiratory 40 H 43 H 30 H Rate Respiratory Rate [Anterior Bilateral Throughout] Respiratory Rate [Bilateral Throughout] Blood Pressure 95/62 87/58 87/58 O2 Sat by Pulse 98 99 99 Oximetry 06/06/19 06/06/19 06/06/19 00:50 01:00 01:10 Temperature Pulse Rate 112 H 113 H 111 H Pulse Rate [ Anterior Bilateral Throughout] Pulse Rate [ Bilateral Throughout] Pulse Rate [ 110 H From Monitor] Respiratory 49 H 38 H 37 H Rate Respiratory Rate [Anterior Bilateral Throughout] Respiratory Rate [Bilateral Throughout] Blood Pressure 87/58 104/66 104/66 O2 Sat by Pulse 98 98 98 Oximetry 06/06/19 06/06/19 06/06/19 01:20 01:30 01:40 Temperature Pulse Rate 111 H 112 H 111 H Pulse Rate [ Anterior Bilateral Throughout] Pulse Rate [ Bilateral Throughout] Pulse Rate [ From Monitor] Respiratory 37 H 32 H 32 H Rate Respiratory Rate [Anterior Bilateral Throughout] Respiratory Rate [Bilateral Throughout] Blood Pressure 104/66 104/66 104/66 O2 Sat by Pulse 97 99 98 Oximetry 06/06/19 06/06/19 06/06/19 01:50 02:00 02:10 Temperature Pulse Rate 110 H 110 H 111 H Pulse Rate [ 110 H Anterior Bilateral Throughout] Pulse Rate [ Bilateral Throughout] Pulse Rate [ From Monitor] Respiratory 32 H 32 H 28 H Rate Respiratory 30 H Rate [Anterior Bilateral Throughout] Respiratory Rate [Bilateral Throughout] Blood Pressure 104/66 102/68 102/68 O2 Sat by Pulse 99 98 Oximetry 06/06/19 06/06/19 06/06/19 02:20 02:30 02:40 Temperature Pulse Rate 109 H 108 H 108 H Pulse Rate [ Anterior Bilateral Throughout] Pulse Rate [ Bilateral Throughout] Pulse Rate [ From Monitor] Respiratory 28 H 21 35 H Rate Respiratory Rate [Anterior Bilateral Throughout] Respiratory Rate [Bilateral Throughout] Blood Pressure 102/68 102/68 102/68 O2 Sat by Pulse 97 99 98 Oximetry 06/06/19 06/06/19 06/06/19 02:50 03:00 03:10 Temperature Pulse Rate 106 H 107 H 103 H Pulse Rate [ Anterior Bilateral Throughout] Pulse Rate [ Bilateral Throughout] Pulse Rate [ From Monitor] Respiratory 26 H 31 H 37 H Rate Respiratory Rate [Anterior Bilateral Throughout] Respiratory Rate [Bilateral Throughout] Blood Pressure 102/68 100/63 100/63 O2 Sat by Pulse 96 95 95 Oximetry 06/06/19 06/06/19 06/06/19 03:20 03:30 03:40 Temperature 99.1 F Pulse Rate 103 H 106 H 106 H Pulse Rate [ Anterior Bilateral Throughout] Pulse Rate [ Bilateral Throughout] Pulse Rate [ From Monitor] Respiratory 41 H 48 H 31 H Rate Respiratory Rate [Anterior Bilateral Throughout] Respiratory Rate [Bilateral Throughout] Blood Pressure 100/63 100/63 100/63 O2 Sat by Pulse 97 79 L 100 Oximetry 06/06/19 06/06/19 06/06/19 03:50 04:00 04:10 Temperature Pulse Rate 105 H 106 H 108 H Pulse Rate [ Anterior Bilateral Throughout] Pulse Rate [ Bilateral Throughout] Pulse Rate [ From Monitor] Respiratory 32 H 38 H 45 H Rate Respiratory Rate [Anterior Bilateral Throughout] Respiratory Rate [Bilateral Throughout] Blood Pressure 100/63 104/73 104/73 O2 Sat by Pulse 98 95 93 Oximetry 06/06/19 06/06/19 06/06/19 04:20 04:30 04:40 Temperature Pulse Rate 108 H 108 H 108 H Pulse Rate [ Anterior Bilateral Throughout] Pulse Rate [ Bilateral Throughout] Pulse Rate [ From Monitor] Respiratory 41 H 43 H 43 H Rate Respiratory Rate [Anterior Bilateral Throughout] Respiratory Rate [Bilateral Throughout] Blood Pressure 104/73 104/73 104/73 O2 Sat by Pulse 91 94 89 Oximetry 06/06/19 06/06/19 06/06/19 04:50 05:00 05:10 Temperature Pulse Rate 106 H 129 H 127 H Pulse Rate [ Anterior Bilateral Throughout] Pulse Rate [ Bilateral Throughout] Pulse Rate [ 110 H From Monitor] Respiratory 43 H 40 H 42 H Rate Respiratory Rate [Anterior Bilateral Throughout] Respiratory Rate [Bilateral Throughout] Blood Pressure 104/73 103/72 103/72 O2 Sat by Pulse 95 93 95 Oximetry 06/06/19 06/06/19 06/06/19 05:20 05:30 05:40 Temperature Pulse Rate 128 H 130 H 128 H Pulse Rate [ Anterior Bilateral Throughout] Pulse Rate [ Bilateral Throughout] Pulse Rate [ From Monitor] Respiratory 44 H 46 H 44 H Rate Respiratory Rate [Anterior Bilateral Throughout] Respiratory Rate [Bilateral Throughout] Blood Pressure 103/72 103/72 103/72 O2 Sat by Pulse 94 95 94 Oximetry 06/06/19 06/06/19 06/06/19 05:50 06:00 06:10 Temperature Pulse Rate 129 H 129 H 128 H Pulse Rate [ Anterior Bilateral Throughout] Pulse Rate [ Bilateral Throughout] Pulse Rate [ From Monitor] Respiratory 40 H 39 H 40 H Rate Respiratory Rate [Anterior Bilateral Throughout] Respiratory Rate [Bilateral Throughout] Blood Pressure 103/72 106/68 106/68 O2 Sat by Pulse 94 95 94 Oximetry 06/06/19 06/06/19 06/06/19 06:20 06:30 06:40 Temperature Pulse Rate 127 H 128 H 127 H Pulse Rate [ Anterior Bilateral Throughout] Pulse Rate [ Bilateral Throughout] Pulse Rate [ From Monitor] Respiratory 36 H 43 H 43 H Rate Respiratory Rate [Anterior Bilateral Throughout] Respiratory Rate [Bilateral Throughout] Blood Pressure 106/68 106/68 106/68 O2 Sat by Pulse 93 93 93 Oximetry 06/06/19 06/06/19 06/06/19 06:50 07:00 07:10 Temperature Pulse Rate 128 H 127 H 125 H Pulse Rate [ Anterior Bilateral Throughout] Pulse Rate [ Bilateral Throughout] Pulse Rate [ From Monitor] Respiratory 40 H 47 H 39 H Rate Respiratory Rate [Anterior Bilateral Throughout] Respiratory Rate [Bilateral Throughout] Blood Pressure 106/68 96/61 106/68 O2 Sat by Pulse 94 93 88 Oximetry 06/06/19 06/06/19 06/06/19 07:16 07:20 07:22 Temperature Pulse Rate 126 H 127 H Pulse Rate [ Anterior Bilateral Throughout] Pulse Rate [ 127 H Bilateral Throughout] Pulse Rate [ From Monitor] Respiratory 45 H 46 H Rate Respiratory Rate [Anterior Bilateral Throughout] Respiratory 40 H Rate [Bilateral Throughout] Blood Pressure 103/65 103/65 O2 Sat by Pulse 94 96 Oximetry 06/06/19 06/06/19 06/06/19 07:30 07:40 07:50 Temperature Pulse Rate 127 H 125 H 128 H Pulse Rate [ Anterior Bilateral Throughout] Pulse Rate [ Bilateral Throughout] Pulse Rate [ From Monitor] Respiratory 43 H 35 H 42 H Rate Respiratory Rate [Anterior Bilateral Throughout] Respiratory Rate [Bilateral Throughout] Blood Pressure 103/65 103/65 103/65 O2 Sat by Pulse 97 95 97 Oximetry 06/06/19 08:00 Temperature 97.3 F L Pulse Rate 127 H Pulse Rate [ Anterior Bilateral Throughout] Pulse Rate [ Bilateral Throughout] Pulse Rate [ From Monitor] Respiratory 33 H Rate Respiratory Rate [Anterior Bilateral Throughout] Respiratory Rate [Bilateral Throughout] Blood Pressure 91/63 O2 Sat by Pulse 88 Oximetry CBC and BMP: 06/05/19 15:00 06/03/19 03:05 ABG, PT/INR, D-dimer: ABG POC ABG pH 7.327 (7.35-7.45) L 05/31/19 16:27 ABG pH 7.367 pH Units (7.350-7.450) 06/01/19 04:27 POC ABG pCO2 64.0 (35-45) H 05/31/19 16:27 ABG pCO2 50.8 mm Hg 06/01/19 04:27 POC ABG pO2 67 (80-105) L 05/31/19 16:27 ABG pO2 114.4 mm Hg (80.0-90.0) H 06/01/19 04:27 POC ABG HCO3 33.5 (22-26 mml/L) 05/31/19 16:27 POC ABG Total CO2 35 (23-27mmol/L) 05/31/19 16:27 POC ABG O2 Sat 91 05/31/19 16:27 ABG O2 Saturation 98.0 % (95.0-99.0) 06/01/19 04:27 Abnormal lab findings: Abnormal Labs 05/31/19 05/31/19 05/31/19 09:24 09:24 09:46 WBC 28.5 H RBC 3.46 L Hgb 10.4 L Hct 31.6 L RDW 19.9 H Plt Count Seg Neuts % (Manual) 93.0 H Lymphocytes % (Manual) 4.0 L Seg Neutrophils # Man 26.5 H Lymphocytes # (Manual) 1.1 L POC ABG pH POC ABG pCO2 POC ABG pO2 ABG pO2 ABG HCO3 ABG Hemoglobin Sodium Chloride 94.9 L Carbon Dioxide 37 H BUN Creatinine 0.3 L Glucose POC Glucose Calcium 8.2 L Alkaline Phosphatase 151 H Total Protein 5.3 L Albumin 2.4 L Urine pH 8.0 H 05/31/19 05/31/19 05/31/19 09:59 12:25 16:27 WBC RBC Hgb Hct RDW Plt Count Seg Neuts % (Manual) Lymphocytes % (Manual) Seg Neutrophils # Man Lymphocytes # (Manual) POC ABG pH 7.249 L 7.296 L 7.327 L POC ABG pCO2 64.0 H POC ABG pO2 373 H 67 L ABG pO2 ABG HCO3 ABG Hemoglobin Sodium Chloride Carbon Dioxide BUN Creatinine Glucose POC Glucose Calcium Alkaline Phosphatase Total Protein Albumin Urine pH 05/31/19 06/01/19 06/01/19 18:12 04:27 05:40 WBC 16.4 H RBC 2.94 L Hgb 8.7 L Hct 27.6 L RDW 20.8 H Plt Count 116 L Seg Neuts % (Manual) Lymphocytes % (Manual) Seg Neutrophils # Man Lymphocytes # (Manual) POC ABG pH POC ABG pCO2 POC ABG pO2 ABG pO2 114.4 H ABG HCO3 28.5 H ABG Hemoglobin 9.6 L Sodium Chloride Carbon Dioxide BUN Creatinine Glucose POC Glucose 129 H Calcium Alkaline Phosphatase Total Protein Albumin Urine pH 06/01/19 06/01/19 06/02/19 05:40 12:23 06:03 WBC 18.6 H RBC 3.37 L Hgb 10.3 L Hct 31.3 L RDW 20.4 H Plt Count 115 L Seg Neuts % (Manual) Lymphocytes % (Manual) Seg Neutrophils # Man Lymphocytes # (Manual) POC ABG pH POC ABG pCO2 POC ABG pO2 ABG pO2 ABG HCO3 ABG Hemoglobin Sodium 147 H Chloride 110.6 H Carbon Dioxide BUN 23 H Creatinine 0.3 L Glucose 112 H POC Glucose 161 H Calcium 7.0 L Alkaline Phosphatase Total Protein Albumin Urine pH 06/02/19 06/03/19 06/03/19 06:03 03:05 03:05 WBC 13.3 H RBC Hgb 11.5 L Hct RDW 20.4 H Plt Count 99 L Seg Neuts % (Manual) Lymphocytes % (Manual) Seg Neutrophils # Man Lymphocytes # (Manual) POC ABG pH POC ABG pCO2 POC ABG pO2 ABG pO2 ABG HCO3 ABG Hemoglobin Sodium Chloride 95.8 L Carbon Dioxide 32 H BUN 24 H 24 H Creatinine 0.4 L 0.4 L Glucose 123 H 61 L POC Glucose Calcium Alkaline Phosphatase Total Protein Albumin Urine pH 06/05/19 06/06/19 15:00 01:10 WBC RBC Hgb Hct RDW Plt Count 132 L Seg Neuts % (Manual) Lymphocytes % (Manual) Seg Neutrophils # Man Lymphocytes # (Manual) POC ABG pH POC ABG pCO2 POC ABG pO2 ABG pO2 ABG HCO3 ABG Hemoglobin Sodium Chloride Carbon Dioxide BUN Creatinine Glucose POC Glucose 112 H Calcium Alkaline Phosphatase Total Protein Albumin Urine pH
[2019-06-06] MEDS: HEPARIN SUB-Q SCH (10:41)
[2019-06-06] MEDS ORDERED: PEPCID IV SCH (11:00)
[2019-06-06] MEDS: PEPCID PO SCH (11:33)
[2019-06-06] MEDS: D5NS 1,000 ML IV SCH (13:03)
[2019-06-06 14:55] VITALS: BP 54/30
--- NOTE | 2019-06-06 16:35 | Progress Note ---
Assessment and Plan Cultures: 05/31 BCx: NGTD 05/31 UCx: 10-100K mixed 05/31 sputum Cx: Normal respiratory tiffany Assessment: 68 y/o male with history of COPD, chronic respiratory failure, NSCLC, history of TB, severe malnutrition, Hx of HAP admitted with respiratory failure: 1. Septic shock secondary to pneumonia - shock resolved, no fever, leukocytosis improving. Initial CXR wit new infiltrate. Has severe baseline lung disease and is thus at high risk for infections. On cefepime. CXR improved. 2. Remote history of latent TB - [facility]. 3. Chronic respiratory failure: worsening now on BIPAP. Patient made DNR and he was home hospice. 4. NSCLC - s/p radiation therapy 5. COPD 6. Severe malnutrition 7. Thrombocytopenia: ? cefepime, famotidine ?cancer Recommendations: - stop cefepime after third dose today - monitor platelets, consider stopping famotidine - Patient made himself DNR, no paperwork signed by family for inpatient hospice. Poor prognosis With cessation of antibiotics we will sign off for now. Please call if you have any new questions. Alicja García MD [facility] ([facility] M: [phone] O: [phone] F: [phone] Subjective Date of service: 06/06/19 Principal diagnosis: lung ca Interval history: Afebrile, no acute change today. Objective - Exam Narrative Exam: Physical Exam: Constitutional: No distress, cachectic. Head, Ears, Nose: Normocephalic, atraumatic. External ears, nose normal Eyes: Conjunctivae/corneas clear. No icterus. No ptosis. Neck: Supple, no meningeal signs Oral: dentition poor, no thrush Cardiovascular: S1, S2 normal. Respiratory: Absent breath sounds on R. GI: Soft, non-tender; bowel sounds normal. No peritoneal signs. Musculoskeletal: No pedal edema, no cyanosis. Skin: No rash or abscess Hem/Lymphatic: No palpable cervical or supraclavicular nodes. No lymphangitis Neurological: Moves spontaneously. - Constitutional Vitals: Vital Signs Temp Pulse Resp BP Pulse Ox 100.1 F H 74 0 L 54/30 91 06/06/19 12:00 06/06/19 14:30 06/06/19 14:50 06/06/19 14:50 06/06/19 14:30 Temperature -Last 24 Hours Temperature 100.1 F Temperature 97.3 F Temperature 99.1 F Temperature 98.9 F Temperature 99.1 F - Labs CBC & Chem 7: 06/05/19 15:00 06/03/19 03:05 Labs: Abnormal lab results 06/06/19 Range/Units 01:10 POC Glucose 112 H (70-105)
--- NOTE | 2019-06-06 17:13 | Death Summary ---
Summary - Providers Date of service: 06/06/19 Consults: 05/31/19 10:53 Consult to Physician [CONS] Routine Comment: Consulting Provider: JAYE CALERO Physician Instructions: Reason For Exam: Intubated, CC management, pt known to you 05/31/19 13:17 Consult to Dietitian/Nutrition [CONS] Routine Physician Instructions: Reason For Exam: Reason for Consult: Evaluate nutritional intake Consult to Dietitian/Nutrition [CONS] Stat Physician Instructions: Reason For Exam: Reason for Consult: Write/Manage Tube Feeding 05/31/19 14:28 Consult to Wound/ET Nurse [CONS] Stat Reason For Exam: wound eval 05/31/19 14:31 Consult to Physician [CONS] Routine Comment: Consulting Provider: JOHNATHON SAXENA Physician Instructions: Reason For Exam: Sepsis shock? 05/31/19 14:34 Consult to Physician [CONS] Routine Comment: Consulting Provider: SERGO CONDE Physician Instructions: Reason For Exam: NSCLC 06/02/19 12:28 Physical Therapy Evaluation and Treat [CONS] Routine Comment: Reason For Exam: deconditioning Attending: BREEZY ENAMORADO MD - summary Date of admission: 05/31/19 10:27 Date of : 06/06/19 Significant findings: Patient is a 68 yo man with a plethora of severe End-Stage co-morbidities including chronic respiratory failure, severe malnutrition, HAP, right sided NSCLC with complete opacification and trachea deviation of the right lung s/p [address] Garcia, tobacco dependency and prior TB s/p treatment who presented to [facility] ED for his 4th admission this month with extremely respiratory distress, SOB associated with the terminal Lung Cancer. He was just discharged from here on 05/29/19 into home hospice with DNR status that was changed to full code while in [facility] per ED physician. EMS was bagging him into the ED; therefore, he required Intubation. About 15 minutes after Intubation, patient had a cardiac arrest with successful resuscitation after 1 round of Epi and chest compr ession. He was hypotensive; therefore, central line placed in the femoral artery and Norepinephrine drip was started. Patient self-extubated on 06/01/19, still very confused, in restraints. He is on VM, maintaining his oxygenation. The Femoral line was removed on 06/01/19 when vasopressors weaned off, the varner was removed on 06/01/19 and he has a condom catheter on. He passed the swallow screen and is on a regular diet. Currently today he is yelling out "I am dying" and "I don't want to live because I have cancer." * Jolynn Diehl [phone] (landline) or [phone] (not working anymore)==> patient wanted me to call Jolynn who he stated is his ex-girlfriend; her corrected number is [phone] and I spoke with her. She confirmed that he was DNR and she doesn't know who changed to full code. She doesn't know who made him DNR, she thinks he did. * Sushil, Brother and Willam Rubio is his roommate * Keeley, neighbor [phone] * 2D ECHO limited views: The left chamber size is normal, mild concentric LVH, global left ventricular systolic function is at the lower limit of normal, the estimated eF is 45-50%, there is trace MR, the right heart chambers are both at least moderately dilated, there is at least mild TR, there is evidence of severe pulmonary hypertension, the RVSP is calculated at 65 mmHg, right heart findings suggest cor pulmonale. * Patient was eventually extubated and placed on DNR status with comfort measures while awaiting accepting hospice company. * Patient decompensated later today with Hypotension and shortly after at 2:40PM Exam: Pale appearing Non responsive No spontaneous breathing noted, No heart sound or breath sound noted pupile dilated and fixed skin warm to touch Calls where placed to family but none was available to Diagnosis Non small cell lung cancer Right lobar consolidation Acute on chronic hypoxic respiratory due to terminal lung cancer s/p ETT on admission and self extubation on 06/01/19: Cardiac arrest Septic shock, Acute diastolic heart failure, Cor pulmonale Severe pulmonary hypertension Sepsis from post-obstructive Pneumonia Acute metabolic encephalopathy Postobstructive Pneumonia NSCLC Suspected severe malnutrition
== END 2019-06-06 18:11 | DRG 871 ==
LOC: ED 08:32 → CC1 10:27
PROVIDERS: ADMIT Internal Medicine; ATTEND Internal Medicine
PROC: 4A033R1 Measurement of Arterial Saturation, Peripheral, Percutaneous Approach (ICD-10-PCS; principal; 2019-05-31)
PROC: 5A1935Z Respiratory Ventilation, Less than 24 Consecutive Hours (ICD-10-PCS; 2019-05-31)
PROC: 0BH17EZ Insertion of Endotracheal Airway into Trachea, Via Natural or Artificial Opening (ICD-10-PCS; 2019-05-31)
PROC: 06HY33Z Insertion of Infusion Device into Lower Vein, Percutaneous Approach (ICD-10-PCS; 2019-05-31)
PROC: B54BZZZ Ultrasonography of Right Lower Extremity Veins (ICD-10-PCS; 2019-05-31)
PROC: 5A12012 Performance of Cardiac Output, Single, Manual (ICD-10-PCS; 2019-05-31)
PROC: 5A09557 Assistance with Respiratory Ventilation, Greater than 96 Consecutive Hours, Continuous Positive Airway Pressure (ICD-10-PCS; 2019-06-01)
DX: A41.9 Sepsis, unspecified organism (principal); J96.21 Acute and chronic respiratory failure with hypoxia; R65.21 Severe sepsis with septic shock; J18.9 Pneumonia, unspecified organism; E43 Unspecified severe protein-calorie malnutrition; I50.31 Acute diastolic (congestive) heart failure; G93.41 Metabolic encephalopathy; C34.90 Malignant neoplasm of unspecified part of unspecified bronchus or lung; Z68.1 Body mass index [BMI] 19.9 or less, adult; I46.9 Cardiac arrest, cause unspecified; J44.9 Chronic obstructive pulmonary disease, unspecified; Z87.891 Personal history of nicotine dependence; Z66 Do not resuscitate; I27.29 Other secondary pulmonary hypertension
CPT/HCPCS: 31720; 36415; 36600; 71045; 74018; 80048; 80053; 81001; 82803; 82962; 84484; 85007; 85025; 85027; 85049; 87040; 87070; 87086; 87205; 93005; 93010; 93308; 93321; 93325; 94002; 94003; 94640; 94660; 94760; 96361; 96365; 96375; 99292; G0378; J0171; J0692; J1644; J2060; J3010; J3370; J7030; J7042; J7050